=== PATIENT | male | born 1945 | race Caucasian/White ===

== ENCOUNTER 2016-10-27 10:26 | Observation (INO) | payer MEDICARE ==
[~2016-10-27] VITALS: Ht 172.7 cm; Wt 81.2 kg
[~2016-10-27 10:26] MED LIST: ADVAIR 500-501 EACH INH; ALLOPURINOL300 MG PO; AZELASTINE137 MCG/0. NAS; DIGOXIN250 MCG PO
[2016-10-27] MEDS ORDERED: ACYCLOVIR400 MG PO (11:32)
[2016-10-27] MEDS ORDERED: DICLO GEL 1%-X1 EACH TOP (11:33)
[2016-10-27] MEDS ORDERED: DILT-XR120 MG PO (11:35)
[2016-10-27] MEDS ORDERED: FOLIC ACID1 MG PO (11:36)
[2016-10-27] MEDS ORDERED: FUROSEMIDE40 MG PO (11:37)
[2016-10-27] MEDS ORDERED: LEVOTHYROXINE75 MCG PO (11:38)
[2016-10-27] MEDS ORDERED: LOSARTAN POTASS50 MG PO (11:39)
[2016-10-27] MEDS ORDERED: METHOTREXATE2.5 MG PO (11:39)
[2016-10-27] MEDS ORDERED: OMEPRAZOLE20 MG PO (11:40)
[2016-10-27] MEDS ORDERED: POTASSIUM CHLO10 ME1 PO (11:40)
[2016-10-27] MEDS ORDERED: HYDROCODON-ACE1 EA11 PO (11:40)
[2016-10-27] MEDS ORDERED: PROAIR HFA8.5 GM INH (11:41)
[2016-10-27] MEDS ORDERED: SPIRIVA RESPIMAT4 GM INH (11:42)
[2016-10-27] MEDS ORDERED: TAMSULOSIN HCL0.4 MG PO (11:46)
[2016-10-27] MEDS ORDERED: XARELTO20 MG PO (11:47)
[2016-10-27] MEDS ORDERED: SERTRALINE HCL100 MG PO (11:47)
[2016-10-27] MEDS ORDERED: SUDOGEST30 MG PO (11:48)
--- NOTE | 2016-10-27 17:13 | EKG ---
[facility] [address] [facility] [place] [address] Signed Atrial fibrillation Right bundle branch block Left anterior fascicular block Bifascicular block Inferior infarct (cited on or before 05-APR-2016) Abnormal ECG When compared with ECG of 05-APR-2016 15:13, No significant change was found Confirmed by REYES MCRAE MD ([id number]) on 10/27/2016 5:13:23 PM Electronically Signed By: REYES MCRAE MD 10/27/16 1713 PATIENT NAME: PAVITHRA ROBERTSON Electrocardiogram DATE OF : 43 PHYSICIAN: REYES MCRAE MD REPORT #: [id number] REPORT IS CONFIDENTIAL AND NOT TO BE RELEASED WITHOUT AUTHORIZATION
[2016-10-28] MEDS ORDERED: AZITHROMYCIN500 MG PO (09:19)
[2016-10-28] MEDS ORDERED: PREDNISONE5 MG PO (09:39)
== END 2016-10-28 12:10 | disposition home or self-care (01) ==
LOC: ED 10:26 → MS 10:28
PROVIDERS: ADMIT Internal Medicine
DX: R07.89 Other chest pain (principal); I25.10 Atherosclerotic heart disease of native coronary artery without angina pectoris; I48.91 Unspecified atrial fibrillation; R77.8 Other specified abnormalities of plasma proteins; M06.9 Rheumatoid arthritis, unspecified; J01.10 Acute frontal sinusitis, unspecified; J32.1 Chronic frontal sinusitis; M10.9 Gout, unspecified; E78.5 Hyperlipidemia, unspecified; E03.9 Hypothyroidism, unspecified; K21.9 Gastro-esophageal reflux disease without esophagitis; I11.0 Hypertensive heart disease with heart failure; I50.9 Heart failure, unspecified; Z88.8 Allergy status to other drugs, medicaments and biological substances; Z79.01 Long term (current) use of anticoagulants; Z95.1 Presence of aortocoronary bypass graft; Z79.51 Long term (current) use of inhaled steroids; Z79.52 Long term (current) use of systemic steroids; Z79.891 Long term (current) use of opiate analgesic; Z79.899 Other long term (current) drug therapy; Z87.891 Personal history of nicotine dependence; Z85.89 Personal history of malignant neoplasm of other organs and systems
CPT/HCPCS: 36415; 71020; 80048; 80053; 81001; 83605; 84484; 85025; 93005; 93010; 94640; 96360; 96365; 96374; 96375; 96376; 99285; G0378; J0456; J2920; J7040

== ENCOUNTER 2017-09-07 16:24 | Emergency (ER) | payer MEDICARE ==
[~2017-09-07 16:24] MED LIST changes: +ACYCLOVIR400 MG PO; +AZITHROMYCIN500 MG PO; +DICLO GEL 1%-X1 EACH TOP; +DILT-XR120 MG PO; +FOLIC ACID1 MG PO; +FUROSEMIDE40 MG PO; +HYDROCODON-ACE1 EA11 PO; +LEVOTHYROXINE75 MCG PO; +LOSARTAN POTASS50 MG PO; +METHOTREXATE2.5 MG PO; +OMEPRAZOLE20 MG PO; +POTASSIUM CHLO10 ME1 PO; +PREDNISONE5 MG PO; +PROAIR HFA8.5 GM INH; +SERTRALINE HCL100 MG PO; +SPIRIVA RESPIMAT4 GM INH; +SUDOGEST30 MG PO; +TAMSULOSIN HCL0.4 MG PO; +XARELTO20 MG PO
[2017-09-07] MEDS ORDERED: NORCO 5-325 TA1 EACH PO (17:36)
[2017-09-07] MEDS ORDERED: AUGMENTIN 875-1 EACH PO (17:36)
[2017-09-09] MEDS ORDERED: CLEOCIN HCL300 MG PO (10:52)
[2017-09-09] MEDS ORDERED: LEVAQUIN500 MG PO (10:52)
== END 2017-09-07 17:59 | disposition home or self-care (01) ==
LOC: ED 16:24
PROC: 0HQDXZZ Repair Right Lower Arm Skin, External Approach (ICD-10-PCS; principal; 2017-09-07)
DX: S51.851A Open bite of right forearm, initial encounter (principal); E03.9 Hypothyroidism, unspecified; J44.9 Chronic obstructive pulmonary disease, unspecified; F32.9 Major depressive disorder, single episode, unspecified; Z87.891 Personal history of nicotine dependence; Z88.8 Allergy status to other drugs, medicaments and biological substances; Z79.899 Other long term (current) drug therapy; W54.0XXA Bitten by dog, initial encounter
CPT/HCPCS: 12004; 99283

== ENCOUNTER 2017-09-16 13:57 | Emergency (ER) | payer MEDICARE ==
[~2017-09-16] VITALS: Ht 172.7 cm; Wt 81.2 kg
[~2017-09-16 13:57] MED LIST changes: +AUGMENTIN 875-1 EACH PO; +CLEOCIN HCL300 MG PO; +LEVAQUIN500 MG PO; +NORCO 5-325 TA1 EACH PO
== END 2017-09-16 15:50 | disposition home or self-care (01) ==
LOC: ED 13:57
DX: S51.851D Open bite of right forearm, subsequent encounter (principal); J44.9 Chronic obstructive pulmonary disease, unspecified; K21.9 Gastro-esophageal reflux disease without esophagitis; F32.9 Major depressive disorder, single episode, unspecified; N18.9 Chronic kidney disease, unspecified; Z87.01 Personal history of pneumonia (recurrent); Z87.891 Personal history of nicotine dependence; Z88.8 Allergy status to other drugs, medicaments and biological substances; Z79.899 Other long term (current) drug therapy; Z79.2 Long term (current) use of antibiotics; W54.0XXD Bitten by dog, subsequent encounter
CPT/HCPCS: 99281

== ENCOUNTER 2017-10-23 12:57 | Emergency (ER) | payer MEDICARE ==
[~2017-10-23] VITALS: Ht 170.2 cm; Wt 73.5 kg
[2017-10-23] MEDS ORDERED: FOSAMAX70 MG PO (15:47)
[2017-10-23] MEDS ORDERED: IMURAN50 MG PO (15:48)
[2017-10-23] MEDS ORDERED: AZELASTINE HCL6 ML OPTH (15:49)
[2017-10-23] MEDS ORDERED: POLYCIN EYE OI3.5 GM OPTH (15:50)
[2017-10-23] MEDS ORDERED: PEPTO-BISMOL262 MG PO (15:50)
[2017-10-23] MEDS ORDERED: CALCIUM MAGNES1 EAC2 PO (15:51)
[2017-10-23] MEDS ORDERED: VITAMIN D31000 UNIT PO (15:52)
[2017-10-23] MEDS ORDERED: B-121000 MC2 PO (15:54)
[2017-10-23] MEDS ORDERED: PEPCID40 MG PO (15:55)
[2017-10-23] MEDS ORDERED: HIGH POTENCY I134 MG PO (15:56)
[2017-10-23] MEDS ORDERED: FLONASE SENSIM5.9 ML (15:57)
[2017-10-23] MEDS ORDERED: GUAIFENESIN ER600 MG PO (15:59)
[2017-10-23] MEDS ORDERED: KRILL OIL500 MG PO (16:01)
[2017-10-23] MEDS ORDERED: NORCO 7.5-3251 EACH PO (16:01)
[2017-10-23] MEDS ORDERED: MUPIROCIN1 GM (16:25)
[2017-10-23] MEDS ORDERED: NYSTATIN15 GM TOP (16:26)
[2017-10-23] MEDS ORDERED: VOLTAREN100 GM TOP (16:29)
[2017-10-23] MEDS ORDERED: XARELTO20 MG PO (16:30)
--- NOTE | 2017-10-24 12:40 | EKG ---
[facility] [address] [facility] [place] [address] Signed Atrial fibrillation Right bundle branch block Left anterior fascicular block Bifascicular block Abnormal ECG When compared with ECG of 27-OCT-2016 10:34, No significant change was found Confirmed by BRISA ZENG MD ([id number]) on 10/24/2017 12:40:13 PM Electronically Signed By: BRISA ZENG MD 10/24/17 1240 PATIENT NAME: PAVITHRA ROBERTSON Electrocardiogram DATE OF : 43 PHYSICIAN: BRISA ZENG MD REPORT #: [id number] REPORT IS CONFIDENTIAL AND NOT TO BE RELEASED WITHOUT AUTHORIZATION
== END 2017-10-23 19:17 | disposition short-term general hospital (02) ==
LOC: ED 12:57 → MS 16:42 → ED 16:42
DX: J18.9 Pneumonia, unspecified organism (principal); J32.9 Chronic sinusitis, unspecified; R04.2 Hemoptysis; I24.9 Acute ischemic heart disease, unspecified; J44.9 Chronic obstructive pulmonary disease, unspecified; I48.91 Unspecified atrial fibrillation; K21.9 Gastro-esophageal reflux disease without esophagitis; I25.2 Old myocardial infarction; E03.9 Hypothyroidism, unspecified; F32.9 Major depressive disorder, single episode, unspecified; N18.9 Chronic kidney disease, unspecified; Z87.891 Personal history of nicotine dependence; Z79.899 Other long term (current) drug therapy; Z79.52 Long term (current) use of systemic steroids
CPT/HCPCS: 70450; 71046; 80053; 83605; 83880; 84484; 85025; 93005; 93010; 94640; 96365; 96375; 99285; J0456; J0696; J1170

== ENCOUNTER 2017-10-28 22:59 | Emergency (ER) | payer MEDICARE ==
[~2017-10-28] VITALS: Ht 172.7 cm; Wt 70.3 kg
--- OUTSIDE RECORDS SUMMARY | ~2017-10-28 | XMS | Encounter Summary ---
Demographics + + + | Address | [address] | | | [place] [address] | + + + | Home Phone | | + + + | Preferred Language | Unknown | + + + | Marital Status | | + + + | Anglican Affiliation | 1028 | + + + | Race | Unknown | + + + | Ethnic Group | Unknown | + + + Author + + + | Author | [facility] | + + + | Organization | [facility] | + + + | Address | Unknown | + + + | Phone | Unavailable | + + + Support + + + + + | Name | Relationship | Address | Phone | + + + + + | Blossom Rose | ECON | [address] | | | | | [place] | | | | | [address] | | + + + + + | Message,Detailed | ECON | Unknown | | + + + + + Care Team Providers + +------+ + | Care Adoption Specialist Name | Role | Phone | + +------+ + | Nelson Laird MD | PCP | | + +------+ + Encounter Details +--------+ + + + + | Date | Type | Department | Care Team | Description | +--------+ + + + + | 10/24/ | Procedure | [facility] | | | | 2018 | [facility] | [facility] 8th | | | | | | Floor [place] | | | | | | [address] | | | | | | [place] [address] | | | | | | [phone] | | | +--------+ + + + + Social History + +-------+ +--------+------+ | Tobacco Use | Types | Packs/Day | Years | Date | | | | | Used | | + +-------+ +--------+------+ | Former Smoker | | | | | + +-------+ +--------+------+ + +---+---+---+ | Smokeless Tobacco: | | | | | Never Used | | | | + +---+---+---+ + + +---------+ + | Alcohol Use | Drinks/We | oz/Week | Comments | | | ek | | | + + +---------+ + | No | | | | + + +---------+ + + + + | Sex Assigned at | Date Recorded | | | | + + + | Not on file | | + + + as of this encounter Plan of Treatment +--------+ + + + + | Date | Type | Specialty | Care Team | Description | +--------+ + + + + | 11/28/ | Office | Pulmonology | Elia, | | | 2018 | Visit | | Mary Pinto, | | | | | | MD [address] | | | | | | [place] [address] | | | | | | [phone] | | | | | | | | +--------+ + + + + | 12/04/ | Office | Cardiology | Cristian Mccoy, | | | 2017 | Visit | | MD [address] | | | | | | [address] [place], | | | | | | [place] [address] | | | | | | [phone] | | | | | | | | +--------+ + + + + | 01/08/ | Office | Cardiology | Cristian Mccoy, | | | 2017 | Visit | | MD [address] | | | | | | [address] [place], | | | | | | [place] [address] | | | | | | [phone] | | | | | | | | +--------+ + + + + | 01/30/ | Appointment | Radiology | | | | 2017 | | | | | +--------+ + + + + | 01/30/ | Appointment | Radiology | | | | 2017 | | | | | +--------+ + + + + | 01/30/ | Office | Vascular Surgery | Bridget Milian DNP | | | 2018 | Visit | | [address] | | | | | | [place] | | | | | | [address] | | | | | | | | +--------+ + + + + as of this encounter Visit Diagnoses Not on filein this encounter"
--- OUTSIDE RECORDS SUMMARY | ~2017-10-28 | XMS | Encounter Summary ---
Demographics + + + | Address | [address] | | | [place] [address] | + + + | Home Phone | | + + + | Preferred Language | Unknown | + + + | Marital Status | | + + + | Synagogue Affiliation | 1028 | + + + | Race | Unknown | + + + | Ethnic Group | Unknown | + + + Author + + + | Author | [facility] | + + + | Organization | [facility] | + + + | Address | Unknown | + + + | Phone | Unavailable | + + + Support + + + + + | Name | Relationship | Address | Phone | + + + + + | Blossom Rose | ECON | [address] | | | | | [place] | | | | | [address] | | + + + + + | Message,Detailed | ECON | Unknown | | + + + + + Care Team Providers + +------+ + | Care Director Money Name | Role | Phone | + +------+ + | Nelson Laird MD | PCP | | + +------+ + Reason for Visit MRI/CAT Scan (Routine) + +--------+ + + + + | Status | Reason | Specialty | Diagnoses / | Referred By | Referred To | | | | | Procedures | Contact | Contact | + +--------+ + + + + | Pending | | Radiology | Diagnoses | See, | | | Review | | | Pain | Medical | | | | | | Procedures | Record | | | | | | CTA abdomen | | | | | | | pelvis with | | | | | | | IV contrast | | | + +--------+ + + + + Encounter Details +--------+ + + + + | Date | Type | Department | Care Team | Description | +--------+ + + + + | 07/31/ | Hospital | [facility] | See, Medical | Pain | | 2018 | Encounter | [facility] | Record | | | | | RADIOLOGY [address] | | | | | | [address] | | | | | | [place] [address] | | | | | | [phone] | | | +--------+ + + + [...] + + + as of this encounter Medications at Time of Discharge + + +--------+---------+ + + | Medication | Sig. | Disp. | Refills | Start | End Date | | | | | | Date | | + + +--------+---------+ + + | acyclovir | Take 400 mg by mouth | | | | | | (ZOVIRAX) 400 MG | 5 (five) times | | | | | | tablet | daily. PRN | | | | | + + +--------+---------+ + + | Albuterol Sulfate | Inhale into the | | | | | | 108 (90 BASE) | lungs. | | | | | | MCG/ACT AEPB | | | | | | + + +--------+---------+ + + | | Apply to eye every | | | | | | bacitracin-polymyxin | 12 (twelve) hours. | | | | | | b (POLYSPORIN) | | | | | | | ophthalmic ointment | | | | | | + + +--------+---------+ + + | bismuth | Take 262 mg by mouth | | | | | | subsalicylate (PEPTO | 4 (four) times | | | | | | BISMOL) 262 MG | daily before meals | | | | | | chewable tablet | and nightly. | | | | | + + +--------+---------+ + + | | Take 1 tablet by | | | | | | ZNYQKRL-ILZSSSHGX-KP | mouth daily. | | | | | | NC PO | | | | | | + + +--------+---------+ + + | cholecalciferol | Take 1,000 Units by | | | | | | (VITAMIN D-3) 1000 | mouth daily. | | | | | | UNITS tablet | | | | | | + + +--------+---------+ + + | cyanocobalamin | Take 1,000 mcg by | | | | | | (VITAMIN B-12) 1000 | mouth daily. | | | | | | MCG tablet | | | | | | + + +--------+---------+ + + | diclofenac | Apply 2 g topically | | | | | | (VOLTAREN) 1 % | 4 (four) times | | | | | | | daily. PRN | | | | | + + +--------+---------+ + + | digoxin (LANOXIN) | Take 125 mcg by | | | | | | 0.25 MG tablet | mouth daily. | | | | | + + +--------+---------+ + + | ferrous sulfate, | Take 65 mg of iron | | | | | | 65 FE, 325 (65 FE) | by mouth daily with | | | | | | MG tablet | breakfast. | | | | | + + +--------+---------+ + + | fluticasone | one spray in each | | | 11/30/19 | | | (FLONASE) 50 MCG/ACT | nostril daily as | | | 12 | | | nasal | needed | | | | | + + +--------+---------+ + + | | Inhale 1 puff into | | | | | | fluticasone-salmeter | the lungs 2 (two) | | | | | | ol (ADVAIR) 500-50 | times daily. | | | | | | MCG/DOSE diskus | | | | | | | inhaler | | | | | | + + +--------+---------+ + + | folic acid | Take 1 mg by mouth | | | | | | (FOLVITE) 1 MG | daily. | | | | | | tablet | | | | | | + + +--------+---------+ + + | furosemide (LASIX) | Take 20 mg by mouth | | | | | | 40 MG tablet | daily. | | | | | + + +--------+---------+ + + | guaiFENesin | Take 600 mg by mouth | | | | | | (MUCINEX) 600 MG 12 | 2 (two) times | | | | | | hr tablet | daily. PRN | | | | | + + +--------+---------+ + + | | Take 1 tablet by | | | | | | HYDROcodone-acetamin | mouth every 6 (six) | | | | | | ophen (NORCO) | hours as needed for | | | | | | 7.5-325 MG per | Pain. | | | | | | tablet | | | | | | + + +--------+---------+ + + | Krill Oil 500 MG | Take 1 tablet by | | | | | | CAPS | mouth daily. | | | | | + + +--------+---------+ + + | levothyroxine | Take 75 mcg by mouth | | | | | | (SYNTHROID) 75 MCG | every morning | | | | | | tablet | before breakfast. | | | | | + + +--------+---------+ + + | loratadine | Take 10 mg by mouth | | | | | | (CLARITIN) 10 MG | daily. | | | | | | tablet | | | | | | + + +--------+---------+ + + | losartan (COZAAR) | Take 50 mg by mouth | | | | | | 50 MG tablet | daily. | | | | | + + +--------+---------+ + + | mupirocin | Apply topically 3 | 22 g | 2 | 07/11/ | | | (BACTROBAN) 2 % | (three) times daily. | | | 16 | | | ointment | | | | | | + + +--------+---------+ + + | ofloxacin | | | | 06/25/19 | | | (OCUFLOX) 0.3 % | | | | 18 | | | ophthalmic solution | | | | | | + + +--------+---------+ + + | | Take 1 tablet by | | | | | | oxyCODONE-acetaminop | mouth every 4 (four) | | | | | | hen (PERCOCET) 5-325 | hours as needed for | | | | | | MG per tablet | Pain. | | | | | + + +--------+---------+ + + | potassium chloride | Take 10 mEq by mouth | | | | | | (K-DUR) 10 MEQ | 2 (two) times daily | | | | | | tablet | with meals. | | | | | + + +--------+---------+ + + | rivaroxaban | Take 20 mg by mouth | | | | | | (XARELTO) 20 MG | daily with dinner. | | | | | | tablet | | | | | | + + +--------+---------+ + + | sertraline | Take 100 mg by mouth | | | | | | (ZOLOFT) 100 MG | daily. | | | | | | tablet | | | | | | + + +--------+---------+ + + | tamsulosin | Take 0.4 mg by mouth | | | | | | (FLOMAX) 0.4 MG | After dinner. | | | | | | capsule | | | | | | + + +--------+---------+ + + | trolamine | Apply topically as | | | | | | salicylate | needed. | | | | | | (ASPERCREME) 10 % | | | | | | | cream | | | | | | + + +--------+---------+ + + | allopurinol | | | | 05/10/19 | | | (ZYLOPRIM) 300 MG | | | | 18 | 8 | | tablet | | | | | | + + +--------+---------+ + + | clindamycin | Take 150 mg by mouth | | | | | | (CLEOCIN) 150 MG | as needed. | | | | 8 | | capsule | | | | | | + + +--------+---------+ + + | diltiazem | Take 60 mg by mouth | | | | | | (CARDIZEM) 120 MG | daily. | | | | 8 | | tablet | | | | | | + + +--------+---------+ + + | | Inhale 1 puff into | | | | | | fluticasone-salmeter | the lungs 2 (two) | | | | 8 | | ol (ADVAIR) 500-50 | times daily. | | | | | | MCG/DOSE diskus | | | | | | | inhaler | | | | | | + + +--------+---------+ + + | methotrexate | Take 7 tablets by | 28 | 0 | 01/12/20 | | | (TREXALL) 2.5 MG | mouth once a week. | tablet | | 15 | 8 | | tablet | | | | | | + + +--------+---------+ + + | metoclopramide | Take 10 mg by mouth | | | | | | (REGLAN) 10 MG | 4 (four) times daily | | | | 8 | | tablet | before meals and | | | | | | | nightly. | | | | | + + +--------+---------+ + + | nystatin | Apply topically 2 | | | | | | (MYCOSTATIN) cream | (two) times daily. | | | | 8 | + + +--------+---------+ + + | | Apply topically 2 | | | | | | nystatin-triamcinolo | (two) times daily. | | | | 8 | | ne (MYCOLOG) | | | | | | | ointment | | | | | | + + +--------+---------+ + + | omeprazole | Take 20 mg by mouth | | | | | | (PRILOSEC) 20 MG | every morning before | | | | 8 | | capsule | breakfast. | | | | | + + +--------+---------+ + + | potassium citrate | Take 10 mEq by | | | | | | (UROCIT-K) 10 MEQ | mouth. | | | | 8 | | (1080 MG) SR tablet | | | | | | + + +--------+---------+ + + | predniSONE | Take 10 mg by mouth | | | | | | (DELTASONE) 2.5 MG | daily. Takes 2 5mg | | | | 8 | | tabletIndications: | tablets every other | | | | | | Patient takes 10mg | day | | | | | | daily | | | | | | + + +--------+---------+ + + | pseudoephedrine | Take 30 mg by mouth | | | | | | (SUDAFED) 30 MG | daily. | | | | 8 | | tablet | | | | | | + + +--------+---------+ + + | rivaroxaban | Take 20 mg by mouth | | | | | | (XARELTO) 20 MG | daily with dinner. | | | | 8 | | tablet | | | | | | + + +--------+---------+ + + as of this encounter Plan of Treatment +--------+ + + + + | Date | Type | Specialty | Care Team | Description | +--------+ + + + + | 11/28/ | Office | Pulmonology | Elia, | | | 2017 | Visit | | Mary Millie, | | | | | | [address] | | | | | | [place] [address] | | | | | | [phone] | | | | | | | | +--------+ + + + + | 12/04/ | Office | Cardiology | Cristian Mccoy, | | | 2017 | Visit | | MD [address] | | | | | | [address] [place], | | | | | | [place] [address] | | | | | | [phone] | | | | | | | | +--------+ + + + + | 01/08/ | Office | Cardiology | Cristian Mccoy, | | | 2017 | Visit | | MD [address] | | | | | | [address] [place], | | | | | | [place] [address] | | | | | | [phone] | | | | | | | [...] [place] | | | | | | [phone] | | | | | | | | +--------+ + + + + as of this encounter Procedures + +--------+ + + + | Procedure Name | Priori | Date/Time | Associated Diagnosis | Comments | | | ty | | | | + +--------+ + + + | CTA ABDOMEN AND | Routin | 07/31/2017 | Pain | Results for this | | PELVIS W CONTRAST | e | 9:20 AM | | procedure are in the | | | | PDT | | results section. | + +--------+ + + + in this encounter Results CTA abdomen pelvis with IV contrast (07/31/2017 9:20 AM) + + + | Narrative | Performed At | + + + | This is a non-reportable procedure without a radiologist report and | [facility] | | is used for image storage only | [facility]Y | + + + + + + + + | Performing | Address | City/State/Zipcode | Phone Number | | Organization | | | | + + + + + | [facility] | [address] | [place] [address] | | + + + + + in this encounter Visit Diagnoses + + | Diagnosis | + + | Pain | + + | Generalized pain | + +"
--- OUTSIDE RECORDS SUMMARY | ~2017-10-28 | XMS | Encounter Summary ---
Demographics + + + | Address | [address] | | | [place] [address] | + + + | Home Phone | | + + + | Preferred Language | Unknown | + + + | Marital Status | | + + + | Synagogue Affiliation | 1028 | + + + | Race | Unknown | + + + | Ethnic Group | Unknown | + + + Author + + + | Author | [facility] | + + + | Organization | [facility] | + + + | Address | Unknown | + + + | Phone | Unavailable | + + + Support + + + + + | Name | Relationship | Address | Phone | + + + + + | Blossom Rose | ECON | [address] | | | | | [place] | | | | | [address] | | + + + + + | Message,Detailed | ECON | Unknown | | + + + + + Care Team Providers + +------+ + | Care Pharmacology Associate Name | Role | Phone | + +------+ + | Nelson Laird MD | PCP | | + +------+ + Reason for Referral Nuclear Medicine (Routine) + +--------+ + + + + | Status | Reason | Specialty | Diagnoses / | Referred By | Referred To | | | | | Procedures | Contact | Contact | + +--------+ + + + + | Pending | | | Diagnoses | See, | | | Review | | | Pain | Medical | | | | | | Procedures | Record | | | | | | NM | | | | | | | myocardial | | | | | | | perfus SPECT | | | | | | | (stress | | | | | | | only) | | | + +--------+ + + + + Encounter Details +--------+ + + + + | Date | Type | Department | Care Team | Description | +--------+ + + + + | 10/16/ | Ancillary | [facility] | See, Medical | Pain | | 2018 | [facility] | [facility] | Record | | | | | Nuclear Medicine | | | | | | [address] | | | | | | [place] [address] | | | | | | [phone] | | | +--------+ + + + [...] | 2017 | Visit | | Mary Pinto, | | | | | | MD [address] | | | | | | [place] [address] | | | | | | [phone] | | | | | | | | +--------+ + + + + | 12/04/ | Office | Cardiology | Cristian Mccoy, | | | 2017 | Visit | | MD [address] | | | | | | [address] [place], | | | | | | [place] [address] | | | | | | [phone] | | | | | | | | +--------+ + + + + | 01/08/ | Office | Cardiology | Paul Mccoyvirgilio, | | | 2017 | Visit | | MD [address] | | | | | | [address] [place], | | | | | | [place] [address] | | | | | | [phone] | | | | | | | [...] | 2017 | Visit | | [address] | | | | | | [place] | | | | | | [address] | | | | | | | | +--------+ + + + + as of this encounter Results NM myocardial perfus SPECT (stress only) (10/14/2017 1:12 AM) + + + | Narrative | Performed At | + + + | This is a non-reportable procedure without a radiologist report and | [facility] | | is used for image storage only | [facility] | + + + + + + + + | Performing | Address | City/State/Zipcode | Phone Number | | Organization | | | | + + + + + | [facility] | [address] | [place] [address] | | + + + + + in this encounter Visit Diagnoses + + | Diagnosis | + + | Pain | + + | Generalized pain | + +"
--- OUTSIDE RECORDS SUMMARY | ~2017-10-28 | XMS | Encounter Summary ---
Demographics + + + | Address | [address] | | | [place] [address] | + + + | Home Phone | | + + + | Preferred Language | Unknown | + + + | Marital Status | | + + + | Mandaeism Affiliation | 1028 | + + + | Race | Unknown | + + + | Ethnic Group | Unknown | + + + Author + + + | Author | [facility] [employer] [facility] | + + + | Organization | [facility] | + + + | Address | Unknown | + + + | Phone | Unavailable | + + + Support + + + + + | Name | Relationship | Address | Phone | + + + + + | Blossom Rose | ECON | [address] | | | | | [place] | | | | | [address] | | + + + + + | Message,Detailed | ECON | Unknown | | + + + + + Care Team Providers + +------+ + | Care Concrete Technician Name | Role | Phone | + +------+ + | Nelson Laird MD | PCP | | + +------+ + Encounter Details +--------+ + + + + | Date | Type | Department | Care Team | Description | +--------+ + + + + | 10/24/ | Procedure | [facility] | | | | 2018 | [facility] | [facility] 8th | | | | | | Floor [address] | | | | | | [address] | | | | | | [place] [address] | | | | | | [phone] | | | +--------+ + + + [...] | | | | | [place] [address] | | | | | | [phone] | | | | | | | | +--------+ + + + + | 12/04/ | Office | Cardiology | Cristian Mccoy, | | | 2017 | Visit | | MD [address] | | | | | | [address] [place], | | | | | | [place] [address] | | | | | | [phone] | | | | | | | | +--------+ + + + + | 01/08/ | Office | Cardiology | Cristian Mccoy, | | | 2017 | Visit | | MD [address] | | | | | | [address] [place], | | | | | | [place] [address] | | | | | | [phone] | | | | | | | [...]
--- OUTSIDE RECORDS SUMMARY | ~2017-10-28 | XMS | Encounter Summary ---
Demographics + + + | Address | [address] | | | [place] [address] | + + + | Home Phone | | + + + | Preferred Language | Unknown | + + + | Marital Status | | + + + | Advent Affiliation | 1028 | + + + | Race | Unknown | + + + | Ethnic Group | Unknown | + + + Author + + + | Author | [facility] | + + + | Organization | [facility] | + + + | Address | Unknown | + + + | Phone | Unavailable | + + + Support + + + + + | Name | Relationship | Address | Phone | + + + + + | Blossom Rose | ECON | [address] | | | | | [place] | | | | | [address] | | + + + + + | Message,Detailed | ECON | Unknown | | + + + + + Care Team Providers + +------+ + | Care Screwdown Operator Name | Role | Phone | [...] Record | | | | | | CT head | | | | | | | without | | | | | | | contrast | | | + +--------+ + + + + Encounter Details +--------+ + + + + | Date | Type | Department | Care Team | Description | +--------+ + + + + | 10/23/ | Hospital | [facility] | See, Medical | Pain | | 2018 | Encounter | [facility] | Record | | | | | RADIOLOGY [address] | | | | | | [address] | | | | | | [place] [address] | | | | | | [phone] | | | +--------+ + + + [...] + +---------+ + + | Medication | Sig. | [...] + + + +---------+ + + | Albuterol Sulfate | Inhale into the | | | | | | 108 (90 BASE) | lungs. | | | | | | MCG/ACT AEPB | | | | | | + + + +---------+ + + | alendronate | Take 70 mg by mouth | | | | | | (FOSAMAX) 70 MG | every 7 days. Take | | | | | | tablet | in the morning with | | | | | | | a full glass of | | | | | | | water, on an empty | | | | | | | stomach, and do not | | | | | | | take anything else | | | | | | | by mouth or lie down | | | | | | | for the next 30 | | | | | | | min. | | | | | + + + +---------+ + + | | Take 1 tablet by | 10 | 0 | 10/27/19 | | | amoxicillin-clavulan | mouth every 12 | tablet | | 18 | | | ate (AUGMENTIN) | (twelve) hours. | | | | | | 875-125 MG per | | | | | | | tabletIndications: | | | | | | | Aspiration Pneumonia | | | | | | + + + +---------+ + + | atorvastatin | Take 1 tablet by | 30 | 2 | 10/27/19 | | | (LIPITOR) 40 MG | mouth nightly. | tablet | | 18 | 9 | | tablet | | | | | | + + + +---------+ + + | azaTHIOprine | Take 50 mg by mouth | | | | | | (IMURAN) 50 MG | daily. | | | | | | tablet | | | | | | + + + +---------+ + + | | Apply to eye every | | | | | | bacitracin-polymyxin | 12 (twelve) hours. | | | | | | b (POLYSPORIN) | | | | | | | ophthalmic ointment | | | | | | + + + +---------+ + + | bismuth | Take 262 mg by mouth | | | | | | subsalicylate (PEPTO | 4 (four) times | | | | | | BISMOL) 262 MG | daily before meals | | | | | | chewable tablet | and nightly. | | | | | + + + +---------+ + + | | Inhale 2 puffs into | 1 | 0 | 10/27/19 | | | budesonide-formotero | the lungs 2 (two) | Inhaler | | 18 | 9 | | l (SYMBICORT) | times daily. | | | | | | 160-4.5 MCG/ACT | | | | | | | inhaler | | | | | | + + + +---------+ + + | | Take 1 tablet by | | | | | | BYFZAYL-FBFNEXWNJ-EA | mouth daily. | | | | | | NC PO | | | | | | + + + +---------+ + + | cholecalciferol | Take 1,000 Units by | | | | | | (VITAMIN D-3) 1000 | mouth daily. | | | | | | UNITS tablet | | | | | | + + + +---------+ + + | clopidogrel | Take 1 tablet by | 90 | 0 | 10/28/19 | | | (PLAVIX) 75 MG | mouth daily. | tablet | | 18 | 9 | | tablet | | | | | | + + + +---------+ + + | cyanocobalamin | Take 1,000 mcg by | | | | | | (VITAMIN B-12) 1000 | mouth daily. | | | | | | MCG tablet | | | | | | + + + +---------+ + + | diclofenac | Apply 2 [...] + + + +---------+ + + | famotidine | Take 40 mg by mouth | | | | | | (PEPCID) 40 MG | daily. | | | | | | tablet | | | | | | + + + +---------+ + + | ferrous sulfate, | Take [...] + +---------+ + + | folic acid | Take [...] +---------+ + + | guaiFENesin | Take 600 [...] + +---------+ + + | | Take 3 mLs by | 360 mL | 0 | 10/27/19 | | | ipratropium-albutero | nebulization every 6 | | | 18 | | | l (DUO-NEB) 0.5-2.5 | (six) hours as | | | | | | mg/3mL | needed. | | | | | + + + +---------+ + + | Krill Oil 500 MG [...] + + + +---------+ + + | mupirocin | 1 g by Nasal route | | | | | | (BACTROBAN) 2 % | as needed. Use pea | | | | | | nasal ointment | sized amount in each | [...] 1 min. | | | | | + + + +---------+ + + | mupirocin | Apply topically 3 | 22 g | 2 | // | | | (BACTROBAN) 2 % | [...] + + +---------+ + + | potassium chloride | Take 10 mEq by mouth | | | | | | (K-DUR) 10 MEQ | 2 (two) times daily | | | | | | tablet | with meals. | | | | | + + + +---------+ + + | predniSONE | Take 4 tablets by | 30 | | 10/27/19 | | | (DELTASONE) 2.5 MG | mouth daily. Takes | tablet | | 18 | | | tabletIndications: | 7.5 mg daily | | | | | | Patient takes 10mg | | | | | | | daily | | | | | | + + + +---------+ + + | rivaroxaban | Take 20 mg by mouth | | | | | | (XARELTO) 20 MG | daily with dinner. | | | | | | tablet | | | | | | + + + +---------+ + + | sertraline | Take 100 [...] + + + +---------+ + + | trolamine | Apply topically as | | | | | | salicylate | needed. | | | | | | (ASPERCREME) 10 % | | | | | | | cream | | | | | | + + + +---------+ + + | | Inhale 2 puffs into | 1 | 0 | 10/27/19 | | | budesonide-formotero | the lungs 2 (two) | Inhaler | | 18 | 8 | | l (SYMBICORT) | times daily. | | | | | | 160-4.5 MCG/ACT | | | | | | | inhaler | | | | | | + + + +---------+ + + | clopidogrel | Take 1 tablet by | 30 | 2 | 10/28/19 | | | (PLAVIX) 75 MG | mouth daily. | tablet | | 18 | 8 | | tablet | | | | | | + + + +---------+ + + | clopidogrel | Take 1 tablet by | 30 | 0 | 10/28/19 | | | (PLAVIX) 75 MG | mouth daily. | tablet | | 18 | 8 | | tablet | | | | | | + + + +---------+ + + | diltiazem | Take 60 mg by mouth | | | | | | (CARDIZEM) 120 MG | daily. | | | | 8 | | tablet | | | | | | + + + +---------+ + + | nystatin | Apply topically 2 | | | | | | (MYCOSTATIN) cream | (two) times daily. | | | | 8 | + + + +---------+ + + [...] + + + +---------+ + + | pseudoephedrine | Take 30 mg by mouth | | | | | | (SUDAFED) 30 MG | daily. | | | | 8 | | tablet | | | | | | + + + +---------+ + + as of this encounter Plan [...] Dr | | | | | | [place] [address] | | | | | | [phone] | | | | | | | | +--------+ + + + + | 12/04/ | Office | Cardiology | Cristian Mccoy, | | | 2017 | Visit | | MD Alayna Rajan | | | | | | Dr [address], | | | | | | [place] [address] | | | | | | [phone] | | | | | | | | +--------+ + + + + | 01/08/ | Office | Cardiology | Cristian Mccoy, | | | 2017 | Visit | | MD [address] | | | | | | [address], | | | | | | [place] [address] | | | | | | [phone] | | | | | | | [...] [place] | | | | | | [address] | | | | | | | | +--------+ + + + + as of this encounter Procedures + +--------+ + + + | Procedure Name | Priori | Date/Time | Associated Diagnosis | Comments | | | ty | | | | + +--------+ + + + | CT HEAD WO CONTRAST | Routin | 10/23/2017 | Pain | Results for this | | | e | 5:05 PM | | procedure are in the | | | | PDT | | results section. | + +--------+ + + + in this encounter Results CT head without contrast (10/23/2017 5:05 PM) + + + | Narrative | Performed At | + + + | This is a non-reportable procedure without a radiologist report and | [facility] | | is used for image storage only | RADIOLOGY | + + + + + + + + | Performing | Address | City/State/Zipcode | Phone Number | | Organization | | | | + + + + + | [facility] | [address] | [place] [address] | | + + + + + in this encounter Visit Diagnoses + + | Diagnosis | + + | Pain | + + | Generalized pain | + +"
--- OUTSIDE RECORDS SUMMARY | ~2017-10-28 | XMS | Encounter Summary ---
Demographics + + + | Address | [address] | | | [place] [address] | + + + | Home Phone | | + + + | Preferred Language | Unknown | + + + | Marital Status | | + + + | Buddhism Affiliation | 1028 | + + + | Race | Unknown | + + + | Ethnic Group | Unknown | + + + Author + + + | Author | [facility] | + + + | Organization | [facility] | + + + | Address | Unknown | + + + | Phone | Unavailable | + + + Support + + + + + | Name | Relationship | Address | Phone | + + + + + | Blossom Rose | ECON | [address] | | | | | [place] | | | | | [address] | | + + + + + | Message,Detailed | ECON | Unknown | | + + + + + Care Team Providers + +------+ + | Care Tumble Tailstock Turret Lathe Operator Name | Role | Phone | + +------+ + | Nelson Laird MD | PCP | | + +------+ + Reason for Referral MRI/CAT Scan (Routine) + +--------+ + + [...] + + + + | 10/23/ | Ancillary | [facility] | See, Medical | Pain | | 2018 | [facility] | [facility] CT | Record | | | | | [address] | | | | | | [place] [address] | | | | | | [phone] | | | +--------+ + + + [...] | | | | | [place] [address] | | | | | | [phone] | | | | | | | | +--------+ + + + + | 12/04/ | Office | Cardiology | Cristina Mccoy, | | | 2017 | Visit | | MD [address] Rajan | | | | | | [address], | | | | | | [place] [address] | | | | | | [phone] | | | | | | | | +--------+ + + + + | 01/08/ | Office | Cardiology | Cristian Mccoy, | | | 2017 | Visit | | MD [address] | | | | | | [address], | | | | | | [place] [address] | | | | | | [phone] | | | | | | | [...] [place] | | | | | | [address] | | | | | | | | +--------+ + + + + as of this encounter Results CT head without contrast (10/23/2017 5:05 PM) + + + | Narrative | Performed At | + + + | This is a non-reportable procedure without a radiologist report and | [facility] | | is used for image storage only | RADIOLOGY | + + + + + + + + | Performing | Address | City/State/Zipcode | Phone Number | | Organization | | | | + + + + + | [facility] | [address] | [facility] [place] [address] | | + + + + + in this encounter Visit Diagnoses + + | Diagnosis | + + | Pain | + + | Generalized pain | + +"
--- OUTSIDE RECORDS SUMMARY | ~2017-10-28 | XMS | Encounter Summary ---
Demographics + + + | Address | [address] | | | [place] [address] | + + + | Home Phone | | + + + | Preferred Language | Unknown | + + + | Marital Status | | + + + | Hindu Affiliation | 1028 | + + + | Race | Unknown | + + + | Ethnic Group | Unknown | + + + Author + + + | Author | [facility] | + + + | Organization | [facility] [employer] | + + + | Address | Unknown | + + + | Phone | Unavailable | + + + Support + + + + + | Name | Relationship | Address | Phone | + + + + + | Blossom Rose | ECON | [address] | | | | | [place] | | | | | [phone] | | + + + + + | Message,Detailed | ECON | Unknown | | + + + + + Care Team Providers + +------+ + | Care Tug Master Name | Role | Phone | + +------+ + | Nelson Laird MD | PCP | | + +------+ + Reason for Referral Speech Therapy (Urgent) + + + + + + + | Status | Reason | Specialty | Diagnoses / | Referred By | Referred To | | | | | Procedures | Contact | Contact | + + + + + + + | New Request | Specialty | Speech | Diagnoses | Audie, | | | | Services | Pathology | Dysphagia, | MD Junie | | | | Required | | unspecified | [address] | | | | | | type | [address] | | | | | | | [place] | | | | | | | [address] | | | | | | | Phone: | | | | | | | [phone] | | | | | | | Fax: | | | | | | | [phone] | | + + + + + + + Reason for Visit Auth/Cert +--------+--------+ + + + + | Status | Reason | Specialty | Diagnoses / | Referred By | Referred To | | | | | Procedures | Contact | Contact | +--------+--------+ + + + + | | | Internal | Diagnoses | | Kr [facility] | | | | Medicine | Precordial | | [facility] | | | | | pain ASCVD | | [facility] [address] | | | | (arterioscle | | [address] | | | | | rotic | | [place] | | | | | cardiovascul | | [phone] Phone: | | | | | ar disease) | | [phone] | | | | | Essential | | | | | | | hypertension | | | | | | | Chronic | | | | | | | atrial | | | | | | | fibrillation | | | | | | | (HCC) | | | | | | | Thoracic | | | | | | | aortic | | | | | | | aneurysm | | | | | | | without | | | | | | | rupture | | | | | | | (HCC) | | | | | | | Acute | | | | | | | ischemic | | | | | | | heart | | | | | | | disease | | | +--------+--------+ + + + + Encounter Details +--------+ + + + + | Date | Type | Department | Care Team | Description | +--------+ + + + + | 10/23/ | Hospital | [facility] | Tameka Duke | Dysphagia, | | 2018 - | Encounter | [facility] 8th | MD Leeroy [address] | unspecified type | | | | [facility] | [address] [place] | (Primary Dx); | | 10/26/ | | [address] | [address] | Thoracic aortic | | 2018 | | [place] [address] | | aneurysm without | | | | [phone] | Junie Delvalle MD | rupture ([facility]); ASCVD | | | | | [address] | (arteriosclerotic | | | | | [place] [address] | cardiovascular | | | | | [phone] | disease); Chronic | | | | | | atrial fibrillation | | | | | | ([facility]); Essential | | | | | | hypertension; | | | | | | Precordial pain | +--------+ + + + + Social [...] + + + as of this encounter Last Filed Vital Signs + + + + | Vital Sign | Reading | Time Taken | + + + + | Blood Pressure | 139/67 | 10/26/2017 10:57 AM PDT | + + + + | Pulse | 66 | 10/26/2017 10:57 AM PDT | + + + + | Temperature | 36.6 C (97.8 F) | 10/26/2017 10:57 AM PDT | + + + + | Respiratory Rate | 18 | 10/26/2017 10:57 AM PDT | + + + + | Oxygen Saturation | 98% | 10/26/2017 10:57 AM PDT | + + + + | Inhaled Oxygen | - | - | | Concentration | | | + + + + | Weight | 71.9 kg (158 lb 8 | 10/26/2017 4:48 AM PDT | | | oz) | | + + + + | Height | 172.7 cm (5' 8") | 10/23/2017 9:26 PM PDT | + + + + | Body Mass Index | 24.1 | 10/26/2017 4:48 AM PDT | + + + + in this encounter Discharge Summaries Junie Delvalle MD - 10/26/2017 10:43 AM PDTFormatting of this note may be different from lali jacobo. Patient ID: Pavithra Rose [id number] 72 y.o. 1945 Admit date: 10/23/2017 Discharge date and time: 10/26/17 Admitting Physician: Tameka Duke MD Discharge Physician: MD Amanuel Consults: Primary Discharge Diagnoses: Precordial pain [R07.2] ASCVD (arteriosclerotic cardiovascular disease) [I25.10] Essential hypertension [I10] Chronic atrial fibrillation (HCC) [I48.2] Thoracic aortic aneurysm without rupture (HCC) [I71.2] Hemoptysis Aspiration PNA Iron def anemia Discharged Condition: good Significant Diagnostic Studies: Lab Results Component Value Date WBC 5.20 10/26/2017 HGB 9.6 (L) 10/26/2017 HCT 28.4 (L) 10/26/2017 MCV 76.7 (L) 10/26/2017 PLT 132 (L) 10/26/2017 GLUCOSE Date Value Ref Range Status 10/26/2017 101 (H) 65 - 99 mg/dL Final BUN Date Value Ref Range Status 10/26/2017 12 8 - 25 mg/dL Final CREATININE Date Value Ref Range Status 10/26/2017 1.1 0.70 - 1.30 mg/dL Final BUN/CREAT Date Value Ref Range Status 10/26/2017 11 Final TOTAL PROTEIN Date Value Ref Range Status 10/26/2017 5.5 (L) 6.3 - 8.2 g/dL Final GLOBULIN Date Value Ref Range Status 10/26/2017 3.0 1.3 - 4.9 g/dL Final TBIL Date Value Ref Range Status 10/26/2017 0.7 0.1 - 1.5 mg/dL Final ALT Date Value Ref Range Status 10/26/2017 14 10 - 65 U/L Final AST Date Value Ref Range Status 10/26/2017 16 10 - 45 U/L Final SODIUM Date Value Ref Range Status 10/26/2017 143 135 - 145 mmol/L Final POTASSIUM Date Value Ref Range Status 10/26/2017 3.3 (L) 3.5 - 4.9 mmol/L Final CHLORIDE Date Value Ref Range Status 10/26/2017 108 99 - 109 mmol/L Final CO2 Date Value Ref Range Status 10/26/2017 26 23 - 32 mmol/L Final ANION GAP AGAP Date Value Ref Range Status 10/26/2017 12 5 - 20 mmol/L Final Xr Chest 2 View Result Date: 10/26/2017 PAVITHRA ROSE 1945 72 years Male XR CHEST 2 VIEW FRONTAL AND LATERAL 10/26/2017 9:52 AM INDICATION: Shortness of breath with chest pain COMPARISON: 10/24/2017 TECHNIQUE: Two view deshawn st, PA and lateral views FINDINGS: Median sternotomy wires are maintained. The cardiac silho uette is borderline enlarged. There is no mediastinal widening or shift. Mild calcification of the aortic arch is present. There is improving aeration of the left upper lobe. Some resi dual opacities remain along the lower lobes bilaterally. The pulmonary markings are normal i n caliber. There is mild degenerative disc disease of the thoracic spine. 1. There is improved aeration of the left upper lobe. 2. Hazy opacities throughout the jose eduardo ng may reflect some residual acute pneumonitis. Xr Chest 2 View Result Date: 10/24/2017 HISTORY: Precordial chest pain. Question pneumonia. COMPARISON: 10/23/17. TECHNIQUE: PA and lateral films of the chest. FINDINGS: Median sternotomy. Heart size is upper normal. Pulmon kenneth venous congestion. Bilateral perihilar mixed interstitial and airspace infiltrates again noted, essentially unchanged. No effusions. Subtle thickening of the major and minor fissur es. Mild degenerative changes of the spine. Osteopenia. 1. Borderline cardiac enlargement, with probable pulmonary edema. Atypical pneumonitis see ms less likely. X-ray Chest 2 View Frontal & Lateral Result Date: 10/23/2017 This is a non-reportable procedure without a radiologist report and is used for image [employer] [facility] only Ct Head Without Contrast Result Date: 10/23/2017 This is a non-reportable procedure without a radiologist report and is used for image [employer] [facility] only Ct Chest Without Contrast Result Date: 10/24/2017 HISTORY: 72 years year-old Male, hemoptysis. TECHNIQUE: CT through the chest. Noncontrast e xamination. Automatic dose adjustment to minimize patient exposure. PRIOR EXAMINATION: Lucamai er chest radiograph. 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 Lung windows demonstrate bila teral reticular and confluent infiltrates throughout mid lower lung pack. In the posterior medial left lung on image 81 series 3 in underlying mass would be difficult to exclude, but this is simply a larger multiple similar findings throughout both lungs. Inflammatory nodul es and/or inflammatory masses are very plausibly superimposed In the mid central superior le ft lung the lung disease is more cystic in appearance, asymmetric centrilobular emphysema/CO PD and superimposed edema edema Bone windows demonstrate degenerative and postprocedural yogesh nges, without acute appearing lesion or active fracture. The sternotomy is healed. Nonaggres sive and degenerative changes not uncommon for age. What is seen of the upper abdomen demons trates fatty liver. Splenomegaly. No adenopathy or fluid collection discernible. Large hiatu s hernia. Within the chest dense coronary calcification, interventional changes, diffuse car diac megaly and hilar vascular congestion symmetrically distributed in midlung pack. Crews es post CABG. 1. At the very least there is pulmonary vascular congestion, edema-and centrilobular emphys will is superimposed 2. Pulmonary infiltrates are asymmetric and throughout the left hemithor ax. This could be due to superimposed infection of the left upper lung and there is a small effusion also 3. Lastly, there are inflammatory appearing airspace or infiltrative nodules s uperimposed throughout Will be important to repeat this examination when the patient's acute issues are resolved to evaluate for underlying lesion/mass X-ray Swallowing Function Video Result Date: 10/24/2017 This is a non-reportable procedure without a radiologist report and is used for image [facility] only Cl Coronary Angio With Grafts Result Date: 10/25/2017 DA TE OF : 1945. PROCEDURE: 1. Right femoral access with ultrasound guidance. 2. Le ft heart catheterization. 3. Coronary angiogram. 4. SVG angiogram to the RCA. 5. SVG angiogr am to the left circumflex. 6. GRIER to LAD angiogram. INDICATION: This is a 72-year-old male who presented to the hospital because of shortness of breath, pulmonary edema, and elevatio n of cardiac enzymes. For further details, refer to my consultation note. Given the above findings, left heart catheterization was recommended. The patient had previous history of C ABG times 4 in 1995. PROCEDURE NOTE: The patient was brought electively to the heart cathet erization lab. Consent was obtained after reviewing risks and benefits. Timeout was done a t the bedside. The patient was prepped in the usual sterile manner, received IV fentanyl vi a independent observer. Right groin was anesthetized with 1 percent lidocaine. Using ultra sound and a micropuncture needle, right femoral access was obtained. A 5-Comoran sheath was introduced without any difficulty. A 0.035 wire was used and advanced under fluoroscopic gu idance into the ascending aorta. A 5-Comoran JL4 catheter was used and advanced over the wir e and placed selectively in the left coronary cusp. Wire was removed. Catheter was flushed . Selectively engaged the left coronary system. Contrast was injected. Multiple views wer e obtained. Exchange over the wire was done with JR4 catheter that was placed selectively i n the right coronary cusp, selectively engaged the right coronary artery, and multiple views were obtained. Attempted to engage the SVG to RCA and the obtuse marginal with the JR4 cat heter; however, was unsuccessful. Then JR4 catheter was used to cannulate the left subclavi an artery and then a long 0.035 wire was used to exchange with a GRIER catheter that selectiv tre engaged the GRIER graft and multiple views were obtained. Exchange over the wire was don e with a 5-Comoran multipurpose catheter that selectively engaged the right SVG to RCA graft. Multiple views were obtained. Exchange over the wire was done with 5-Comoran AL1 catheter t hat selectively engaged the SVG to left circumflex system graft. Multiple views were obtain ed. Finally, the catheter was removed over the wire. Hemostasis was achieved by TR band. C ONTRAST USED: 100 mL. BLOOD LOSS: Less than 10. COMPLICATIONS: None. HEMOSTASIS: By manu al pressure. ANGIOGRAPHIC FINDINGS: 1. Left main is large caliber vessel with normal origin. Bifurcates to LAD and left circumflex with mild diffuse disease. 2. LAD is 100 percent pro ximally occluded. 3. Left circumflex is a small to moderate vessel that is severely calcifie d, has multiple lesions and diffusely diseased. Distally it is very small and severely calc ified. Has 90 percent proximal and subtotal occlusion distal. However again smaller and se verely calcified. No competitive flow was seen. 4. RCA has 100 percent ostial occlusion. 5. SVG to RCA is widely patent with mildly diffuse disease. 6. SVG to left circumflex system i s diffusely diseased with severe degenerative disease; however, occluded at the insertion si te. The jump graft of the 2nd obtuse marginal is occluded. GRIER to LAD is widely patent. C ONCLUSION: 1. Severe 3-vessel coronary artery disease. 2. Patent SVG to RCA and GRIER to LAD. 3. Occluded SVG to the left circumflex system, which is a jump graft. 4. Severely calcified left circumflex, which is small caliber severely calcified. However, not amenable to any PC I. RECOMMENDATIONS: Given the above findings, the patient will continue medical therapy for coronary artery disease. Will be restarted on antiplatelet therapy and will be on optimiza tion of blood pressure control, statin therapy, and will be re-started on anticoagulation fo r atrial fibrillation. Further recommendations to follow. Read by CECILIA MCCOY MD 11/2017 07:56 P Echo Cardiac Adult Complete Result Date: 10/24/2017 Patient Name: PAVITHRA ROSE Date of : 1945 Performing Physici an: Cecilia Mccoy INDIC ATIONS sob,h/o 4 cabg CONCLUSIONS 1. The left ventricle cavity is no rmal in size, mild concentric hypertrophy and normal systolic function EF 55%. Mild inferio r and inferolateral hypokinetic segments. 2. Mild degenerative changes in the aortic and rose ral valves. 3. There is no pericardial effusion. FINDINGS -------- ECG rhythm: Atrial fibril lation. Study: A 2-dimensional transthoracic echocardiogram with m-mode, spectral and color flow Doppler was perfomed. Study: This was a technically adequate study. Left Ventricle: Ove rall left ventricular systolic function is low-normal with, an EF 55 %. Left Ventricle: The left ventricle cavity size is normal. Left Ventricle: There is mild concentric left ventricu lar hypertrophy. Right Ventricle: The RV was not well visualized. Left Atrium: The left atri um is mildly dilated. Right Atrium: The right atrial size is normal. Aortic Valve: The aorti c valve is trileaflet. Aortic Valve: The aortic valve is mildly calcified. Aortic Valve: The re is mild aortic regurgitation. Mitral Valve: There is trace mitral regurgitation. Mitral V alve: Mild mitral annular calcification present. Tricuspid Valve: The tricuspid valve appear s structurally normal. Tricuspid Valve: Trace tricuspid regurgitation present. Tricuspid Aleksandra ve: There is no evidence of pulmonary hypertension. Pulmonic Valve: The pulmonic valve is no rmal. Pulmonic Valve: Mild pulmonic regurgitation. Pulmonic Valve: Mild degenerative changes in the aortic and mitral valves. Pericardium: There is no pericardial effusion. Pericardium : No pleural effusion seen. IVC/Hepatic Veins: The inferior vena cava is normal in size and collapses > 50 % with sniff, indicating normal central venous pressures. MEASUREMENTS ------ ------- Ao asc: 4.19 cm Ao sinus: 3.[address] junct: 3.01 cm IVC: 1.42 cm LA Diam: 5.50 cm LA Major: 5.97 cm EDV(Teich): 106.74 ml IVSd: 1.19 cm LVIDd: 4.78 cm LVPW d: 1.21 cm LVOT Diam: 2.25 cm %FS: 26.84 % EF(Teich): 52.32 % ESV(Teich): 50.89 ml IVSs: 1.81 cm LVIDs: 3.50 cm LVPWs: 1.71 cm SV(Teich): 55.85 ml RA Major: 5.04 cm LVEF MOD A4C: 55.16 % SV MOD A4C: 49.58 ml LVEDV MOD A4C: 89.88 ml LVLd A4C: 7.50 c m LVESV MOD A4C: 40.30 ml LVLs A4C: 5.87 cm LAESV(A-L): 76.74 ml LAESV Index (A-L): 41.48 ml/m2 LAAs A2C: 17.05 cm2 LAESV A-L A2C: 48.56 ml LALs A2C: 5.08 cm LAAs A4C: 26.95 cm2 LAESV A-L A4C: 95.07 ml LALs A4C: 6.48 cm Ao Diam: 4.03 cm AV Cusp: 1.91 c m LA Diam: 4.92 cm LA/Ao: 1.22 D-E Excursion: 2.29 cm E-F Fergus: 0.09 m/s AV maxP.18 mmHg AV meanP.51 mmHg AV Vmax: 1.59 m/s AV Vmean: 1.23 m/s AV VTI: 28.06 cm FRANKY Vmax: 3.26 cm2 FRANKY (VTI): 3.35 cm2 AVAI Vmax: 0.00 cm2/m2 AVAI (VTI): 0.00 c m2/m2 LVOT maxP.86 mmHg LVOT meanP.16 mmHg LVSI Dopp: 50.95 ml/m2 LVSV Dopp: 94.27 ml LVOT Vmax: 1.31 m/s LVOT Vmean: 0.84 m/s LVOT VTI: 23.69 cm MV E Ed: 0.93 m/s E' Lat: 0.12 m/s E' Sept: 0.06 m/s PRend P.85 mmHg PRend Vmax: 1.48 m/s HR: 77.27 BPM PV maxP.37 mmHg PV meanP.56 mmHg PV Vmax: 0.91 m/s PV Vmean: 0. 56 m/s PV VTI: 12.48 cm RV S': 0.08 m/s TR maxP.05 mmHg TR Vmax: 3.04 m/s TV A Ed: 0.00 m/s TV Dec Fergus: 3.93 m/s2 TV Dec Time: 207.73 ms TV E Ed: 0.56 m/s TV E /A Ratio: 69.55 Pulp Grinder: ADAM Authenticated by: Cecilia Mccoy Report Date/Time: 13:7:33 1. The left ventricle cavity is normal in size, mild concentric hypertrophy and normal sys tolic function EF 55%. Mild inferior and inferolateral hypokinetic segments. 2. Mild degener ative changes in the aortic and mitral valves. 3. There is no pericardial effusion. Cl Guidance Vascular Access Us Result Date: 10/24/2017 This Point of Care (POC) ultrasound image has been reviewed and interpreted by the physicia n identified as the performing physician in the associated interpretation and report. HPI and Hospital Course: 72-year-old gentleman with past medical history of chronic atrial fibrillation on anticoagulation, history of vocal cord cancer status post treatment and dysp hagia on and off for last 9 years, history of coronary disease status post CABG in 1995, his tory of tobacco abuse disorder and COPD, history of peptic ulcer disease and GI bleed who we nt to [facility] with productive cough, shortness of breath and hemoptysis seconda ry to aspiration pneumonia and found to have positive troponin around 1 hence he was transf erred to [facility] for further workup and treatment. Hospital course by issues: #1 non-ST elevation AR: Status post cardiac cath which showed triple-vessel disease and rec ommend medical management only. Patient started on Plavix, atorvastatin, patient allergic t o beta barbara has not initiated and patient currently asymptomatic. 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 Patient referred to speech therapy as an outpatient #4 Hemoptysis likely secondary to underlying pneumonia and being on aspirin as well as on Xarelleto which was held on admission and Plavix restarted yesterday. Patient will be resta rted on Xarelleto as he is not spitting up any blood and he was advised to hold any blood th inner if he has recurrence of hemoptysis and seek medical attention #5.Iron deficiency anemia secondary to ongoing hemoptysis and patient was given IV iron now being discharged home on iron supplement hemoglobin stable around 9 #6 acute COPD exacerbation secondary to pneumonia resolved now I have spent more than 35 minutes on discharge BP 139/67 (BP Location: Left upper arm) | Pulse 66 | Temp 97.8 F (36.6 C) (Oral) | R kev 18 | Ht 1.727 m (5' 8") | Wt 71.9 kg (158 lb 8 oz) | SpO2 98% | BMI 24.10 kg/m Intake/Output Summary (Last 24 hours) at 10/26/17 1221 Last data filed at 10/26/17 0616 Gross per 24 hour Intake 1191.23 ml Output 825 ml Net 366.23 ml Discharge Exam: Constitutional: Alert and oriented to person, place, and time. Appears well-developed and w ell-nourished. Cardiovascular: Normal rate, regular rhythm, normal heart sounds and intact distal pulses. Exam reveals no gallop and no friction rub. No murmur heard. Pulmonary/Chest: Effort normal and breath sounds normal. No stridor. No respiratory distres s. no wheezes. no rales. exhibits no tenderness. Except bibasilar crackles Abdominal: Soft. Bowel sounds are normal. exhibits no distension and no mass. There is no t enderness. There is no rebound and no guarding. Musculoskeletal: Normal range of motion.exhibits no tenderness. exhibits no edema. Neurological: Alert and oriented to person, place, and time. Has normal reflexes. display s normal reflexes. No cranial nerve deficit. Exhibits normal muscle tone. Coordination norm al. Skin: Skin is warm and dry. No rash noted. No erythema. No pallor. Psychiatric: Has a normal mood and affect. Behavior is normal. Judgment normal. Disposition: Home or Self Care Patient Instructions: Medication List START taking these medications amoxicillin-clavulanate 875-125 MG per tablet QTY: 10 tablet Refills: 0 Commonly known as: AUGMENTIN Take 1 tablet by mouth every 12 (twelve) hours. atorvastatin 40 MG tablet QTY: 30 tablet Refills: 2 Commonly known as: LIPITOR Take 1 tablet by mouth nightly. budesonide-formoterol 160-4.5 MCG/ACT inhaler QTY: 1 Inhaler Refills: 0 Commonly known as: SYMBICORT Inhale 2 puffs into the lungs 2 (two) times daily. clopidogrel 75 MG tablet QTY: 90 tablet Refills: 0 Commonly known as: PLAVIX Take 1 tablet by mouth daily. ipratropium-albuterol 0.5-2.5 mg/3mL QTY: 360 mL Refills: 0 Commonly known as: DUO-NEB Take 3 mLs by nebulization every 6 (six) hours as needed. CHANGE how you take these medications mupirocin 2 % ointment QTY: 22 g Refills: 2 Commonly known as: BACTROBAN Apply topically 3 (three) times daily. What changed: when to take this reasons to take this predniSONE 2.5 MG tablet QTY: 30 tablet Refills: 0 Commonly known as: DELTASONE Take 4 tablets by mouth daily. Takes 7.5 mg daily What changed: additional instructions CONTINUE taking these medications acyclovir 400 MG tablet Refills: 0 Commonly known as: ZOVIRAX Albuterol Sulfate 108 (90 Base) MCG/ACT Aepb Refills: 0 alendronate 70 MG tablet Refills: 0 Commonly known as: FOSAMAX azaTHIOprine 50 MG tablet Refills: 0 Commonly known as: IMURAN azelastine 0.1 % nasal spray QTY: 30 mL Refills: 12 1 spray by Nasal route 2 (two) times daily. Use in each nostril as directed bacitracin-polymyxin b ophthalmic ointment Refills: 0 Commonly known as: POLYSPORIN bismuth subsalicylate 262 MG chewable tablet Refills: 0 Commonly known as: PEPTO BISMOL QEEGNCH-WROCEXMCJ-WGDT PO Refills: 0 cholecalciferol 1000 units tablet Refills: 0 Commonly known as: VITAMIN D-3 cyanocobalamin 1000 MCG tablet Refills: 0 Commonly known as: VITAMIN B-12 famotidine 40 MG tablet Refills: 0 Commonly known as: PEPCID ferrous sulfate (65 FE) 325 (65 FE) MG tablet Refills: 0 FLOMAX 0.4 MG capsule Refills: 0 Generic drug: tamsulosin fluticasone 50 MCG/ACT nasal Refills: 0 Commonly known as: FLONASE fluticasone-salmeterol 500-50 MCG/DOSE diskus inhaler Refills: 0 Commonly known as: ADVAIR folic acid 1 MG tablet Refills: 0 Commonly known as: FOLVITE furosemide 40 MG tablet Refills: 0 Commonly known as: LASIX guaiFENesin 600 MG 12 hr tablet Refills: 0 Commonly known as: MUCINEX HYDROcodone-acetaminophen 7.5-325 MG per tablet Refills: 0 Commonly known as: NORCO Krill Oil 500 MG Caps Refills: 0 LANOXIN 0.25 MG tablet Refills: 0 Generic drug: digoxin levothyroxine 75 MCG tablet Refills: 0 Commonly known as: SYNTHROID loratadine 10 MG tablet Refills: 0 Commonly known as: CLARITIN losartan 50 MG tablet Refills: 0 Commonly known as: COZAAR mupirocin 2 % nasal ointment Refills: 0 Commonly known as: BACTROBAN ofloxacin 0.3 % ophthalmic solution Refills: 0 Commonly known as: OCUFLOX oxyCODONE-acetaminophen 5-325 MG per tablet Refills: 0 Commonly known as: PERCOCET potassium chloride 10 MEQ tablet Refills: 0 Commonly known as: K-DUR sertraline 100 MG tablet Refills: 0 Commonly known as: ZOLOFT trolamine salicylate 10 % cream Refills: 0 Commonly known as: ASPERCREME VOLTAREN 1 % Refills: 0 Generic drug: diclofenac XARELTO 20 MG tablet Refills: 0 Generic drug: rivaroxaban You might also be taking other medications not listed above. If you have questions about an y of your other medications, talk to the person who prescribed them or your Primary Care Pro vider. STOP taking these medications diltiazem 120 MG tablet Commonly known as: CARDIZEM nystatin cream Commonly known as: MYCOSTATIN nystatin-triamcinolone ointment Commonly known as: MYCOLOG omeprazole 20 MG capsule Commonly known as: PRILOSEC pseudoephedrine 30 MG tablet Commonly known as: SUDAFED Where to Get Your Medications You can get these medications from any pharmacy Bring a paper prescription for each of these medications amoxicillin-clavulanate 875-125 MG per tablet atorvastatin 40 MG tablet budesonide-formoterol 160-4.5 MCG/ACT inhaler clopidogrel 75 MG tablet ipratropium-albuterol 0.5-2.5 mg/3mL Information about where to get these medications is not yet available Ask your nurse or doctor about these medications predniSONE 2.5 MG tablet Activity: activity as tolerated Diet: cardiac diet Wound Care: not applicable There are no outpatient Patient Instructions on file for this admission. Nelson Laird MD [address] [facility], [address] [place] [address] Nelson Laird MD [address] [facility], [address] [place] [address] In 1 week Cecilia Mccoy MD [address] [place] [address] In 1 week Signed: JUNIE DELVALLE 10/26/2017 12:21 PMin this encounter Discharge Instructions The following attachments cannot be sent through Care Everywhere.Amoxicillin; Clavulanic Ac id tablets (Syriac)Clopidogrel tablets (Syriac)in this encounter Medications at Time of Discharge [...] by | | | | | | [id number] | mouth daily. | | | | [...] 3 | 22 g | 2 | 07/12/19 | | | (BACTROBAN) 2 % | [...] +---------+ + + as of this encounter Progress Notes Cecilia Mccoy MD - 10/26/2017 9:37 AM PDTFormatting of this note may be different fro m the original. [facility] Service: Cardiology Progress Note Name of Gripper Attacher: Cecilia Mccoy MD I have seen the patient on 10/26/2017. No more hemoptysis. Had LHC showed severe disease in LCX and occluded SVG to OM. SUBJECTIVE Denies any chest pain Current Facility-Administered Medications: acetaminophen (TYLENOL) tablet 650 mg, 650 mg, Oral, Q6H PRN OR acetaminophen (TYL ENOL) suppository 650 mg, 650 mg, Rectal, Q6H PRN, Tameka Duke MD ampicillin-sulbactam (UNASYN) 3 g in sodium chloride (IV) 0.9 % 100 mL IVPB, 3 g, Intr avenous, Q6H, Junei Delvalle MD, 3 g at 10/26/17 0442 atorvastatin (LIPITOR) tablet 40 mg, 40 mg, Oral, Nightly, Tameka Duke MD, 40 m g at 10/25/17 2130 azithromycin (ZITHROMAX) 500 mg in sodium chloride (IV) 0.9 % 250 mL IVPB, 500 mg, Int ravenous, Q24H, Tameka Duke MD, 500 mg at 10/25/17 1248 budesonide (PULMICORT) nebulizer suspension 0.5 mg, 0.5 mg, Nebulization, BID, Junie Delvalle MD, 0.5 mg at 10/25/172014 clopidogrel (PLAVIX) tablet 75 mg, 75 mg, Oral, Daily, Cecilia Mccoy MD, 75 mg at 10/26/17919 digoxin (LANOXIN) tablet 0.125 mg, 0.125 mg, Oral, Daily, Tameka Duke MD, 0.125 mg at 10/26/17919 famotidine (PEPCID) tablet 40 mg, 40 mg, Oral, Daily, Tameka Duke MD, 40 mg at 10/26/17919 fentaNYL (SUBLIMAZE) injection, , , Once PRN, Cecilia Mccoy MD, 50 mcg at 10/24/171918 ferric gluconate (FERRLECIT) 250 mg in sodium chloride (IV) 0.9 % 100 mL IVPB, 250 mg, Intravenous, Q24H, Junie Delvalle MD furosemide (LASIX) tablet 20 mg, 20 mg, Oral, Daily, Tameka Duke MD, 20 mg at 0 10/26/17919 guaiFENesin (MUCINEX) 12 hr tablet 600 mg, 600 mg, Oral, TID, Cecilia Mccoy MD, 60 0 mg at 10/26/17919 ipratropium-albuterol (DUO-NEB) 0.5-2.5 mg/3mL nebulizer solution 3 mL, 3 mL, Nebuliza tion, Q6H, Tameka Duke MD, 3 mL at 10/26/17314 levothyroxine (SYNTHROID) tablet 75 mcg, 75 mcg, Oral, QAM AC, Tameka Duke MD, 75 mcg at 10/26/17919 lidocaine 1 % injection, , , Once PRN, Cecilia Mccoy MD, 10 mL at 10/24/171911 losartan (COZAAR) tablet 50 mg, 50 mg, Oral, Daily, Tameka Duke MD, 50 mg at 919 morphine (PF) injection 2 mg, 2 mg, Intravenous, Q4H PRN, Junie Delvalle MD, 2 mg at 0 10/24/172054 nitroGLYCERIN (NITRO-BID) 2 % ointment 0.5 inch, 0.5 inch, Topical, Q6H, Tameka reynolds MD, 0.5 inch at 10/24/17 0613 nitroGLYCERIN (NITROSTAT) SL tablet 0.4 mg, 0.4 mg, Sublingual, Q5 Min PRN, Tameka posada MD polyethylene glycol (GLYCOLAX) packet 17 g, 17 g, Oral, Daily PRN, Tameka Duke MD potassium chloride oral solution 40 mEq, 40 mEq, Oral, Daily with breakfast, Junie mayo MD rivaroxaban (XARELTO) tablet 20 mg, 20 mg, Oral, Daily with dinner, Junie Delvalle MD sertraline (ZOLOFT) tablet 100 mg, 100 mg, Oral, Daily, Tameka Duke MD, 100 mg at 10/26/17 0921 sodium bicarbonate buffer (NEUT) injection, , , Once PRN, Cecilia Mccoy MD, 5 mL a t 10/24/17 1912 saline lock IV, , , Continuous AND sodium chloride (PF) 0.9 % flush 10 mL, 10 mL, Intravenous, Q8H, Tameka Duke MD, 10 mL at 10/26/17 0442 tamsulosin (FLOMAX) capsule 0.4 mg, 0.4 mg, Oral, after dinner, Tameka Duke MD, 0.4 mg at 10/25/17 1701 zolpidem (AMBIEN) tablet 5 mg, 5 mg, Oral, Nightly PRN, Cecilia Mccoy MD OBJECTIVE Vital Signs: BP 128/61 | Pulse 64 | Temp 97.7 F (36.5 C) (Oral) | Resp 18 | Ht 1.727 m (5' 8") | Wt 71.9 kg (158 lb 8 oz) | SpO2 98% | BMI 24.10 kg/m Intake/Output Summary (Last 24 hours) at 10/26/17 0937 Last data filed at 10/26/17 0616 Gross per 24 hour Intake 1191.23 ml Output 1075 ml Net 116.23 ml Cardiovascular: iiregular irregular, S1 normal and S2 normal. No murmur heard. Pulses: Radial pulses are 2+ on the right side, and 2+ on the left side. Pulmonary/Chest: poor air exchange with mild rhonchi bilaterally. Abdominal: Soft. No tenderness. Musculoskeletal: No edema. Neurological: Alert. No cranial nerve deficit. Skin: Warm and dry. DATA Recent Labs Lab 10/26/17 0535 10/25/17 1000 10/24/17 0157 NA 143 139 138 K 3.3* 3.8 4.3 CO2 26 24 24 BUN 12 15 14 CREATININE 1.1 1.2 1.3 EGFR >60 59* 54* MG -- -- 1.8 Recent Labs Lab 10/26/17 0535 10/25/17 1000 10/24/17 0157 WBC 5.20 7.51 11.05* HGB 9.6* 9.4* 11.5* HCT 28.4* 27.9* 35.3* MCV 76.7* 77.0* 77.5* PLT 132* PLATELETS CLUMPED, APPEAR ADEQUATE 160 Recent Labs Lab 10/24/17 0551 10/24/17 0157 10/23/17 2212 TROPONINI 1.28* 1.72* 1.76* TSH -- 4.150 -- Lab Results Component Value Date CHOL 103 10/24/2017 TRIG 116 10/24/2017 LDL 56 10/24/2017 HDL 24 (L) 10/24/2017 GLUF 101 (H) 10/26/2017 TSH 4.150 10/24/2017 EK10/24/2017 Reviewed by myself showed atrial fibrillation with [...] site. Last US carotid: ASSESSMENT: Patient is 72 y.o.with the following medical problems: 1. Coronary artery disease, occluded SVG to LCX system, LCX is not amenable to PCI. 2. Non-ST elevation AR. 3. Dysphagia. 4. Hemoptysis minimal, improved. 5. Chronic atrial fibrillation. On rate control strategy and anticoagulation. CHADSVASc sco re of 4. 6. AAA. 7. Coronary artery disease S/[place] [address]. 8. RBBB. 9. Hypertension blood pressures controlled. 10. Chronic obstructive pulmonary disease. 11. History of upper GI bleed due to peptic ulcer was off any antiplatelet therapy. 12. History of vocal cord cancer. Recommendations: Please provide Prescription for Clopidogrel for 3 months. Stop aspirin for increased risk of bleed given the patient need to be restarted on Rivaroxa ban. Continue to monitor H and H and any sign of increased hemoptysis. Once Clopidogrel stopped will restart aspirin. Patient has been off Rivaroxaban for 4 days with no change in patient's hemoptysis. Continue with Losartan, statin. Patient should be restarted on Rivaroxaban. Not a candidate for BB. HR is controlled rate atrial fibrillation. Will follow up as an outpatient. Code Status: Full Code Cecilia Mccoy MD 10/26/2017 Junie Delvalle MD - 10/25/2017 3:16 PM PDTFormatting of this note may be differ ent from the original. Hospitalist Progress Note Pavithra Rose 72 y.o. [id number] male [facility] Day: LOS: 2 days Patient Summary: 72-year-old gentleman with a past medical history of chronic atrial fibrillation on anticoagulation, history of vocal cord cancer status post treatment, luciano ry artery disease status post CABG in 1995, history of tobacco abuse disorder and COPD, hi story of peptic ulcer disease and GI bleed, history of dysphagia on and off for the last 9 y ears, who recently had abnormal cardiac stress test study who went to [facility] with ongoing productive cough, shortness of breath and hemoptysis, where he was found to hav e positive troponin and chest x-ray showed pneumonia and patient was transferred to [facility] for further workup and treatment. The patient was not put on any anticoagulation se condary to ongoing hemoptysis and Dr. Mccoy from cardiology consulted who recommended to get a CT chest and speech evaluation for ongoing dysphagia before cardiac workup. The patie nt's pneumonia is likely secondary to aspiration, hence antibiotic changed to Unasyn. Patient CT scan of the chest without contrast showed pulmonary vascular congestion, edema a nd centrilobular emphysema, pulmonary infiltrates asymmetrical throughout the left hemithora x.echo showed ejection fraction of 55%.patient underwent cardiac cath today which showed sev ere three-vessel disease, patent SVG to RCA and GRIER to LAD, occluded SVG to the left circum flex system, severely calcified left circumflex not amenable to PCI and recommend medical ma nagement only. When I went to see the patient he was resting comfortably on the bedside complaining of shortness of breath as he refused nebulizer treatment in the morning otherw ise he denied any chest pain no nausea no vomiting no abdominal pain no constipation or dillan rrhea though still complaining of cough bringing up yellowish color phlegm mixed with scant amount of blood less than yesterday. Scheduled Medications ampicillin-sulbactam 3 g Intravenous Q6H atorvastatin 40 mg Oral Nightly azithromycin 500 mg Intravenous Q24H budesonide 0.5 mg Nebulization BID clopidogrel 75 mg Oral Daily digoxin 0.125 mg Oral Daily famotidine 40 mg Oral Daily furosemide 20 mg Oral Daily guaiFENesin 600 mg Oral TID ipratropium-albuterol 3 mL Nebulization Q6H levothyroxine 75 mcg Oral QAM AC losartan 50 mg Oral Daily nitroGLYCERIN 0.5 inch Topical Q6H [START ON 10/26/2017] rivaroxaban 20 mg Oral Daily with dinner sertraline 100 mg Oral Daily sodium chloride (PF) 10 mL Intravenous Q8H tamsulosin 0.4 mg Oral after dinner Continuous Infusions PRN Medications acetaminophen OR acetaminophen, atropine sulfate, fentaNYL, lidocaine, morphine, nitroG LYCERIN, polyethylene glycol, sodium bicarbonate buffer, sodium chloride (bolus), zolpidem Allergy: Allergies Allergen Reactions Beta Adrenergic Blockers Anaphylaxis Diltiazem Edema Gabapentin Other (See Comments) COURTROOM REPORTER Imipramine Other (See Comments) Urinary retention Metoprolol Swelling Propranolol Other (See Comments) raynaud's OBJECTIVE Vital Signs: BP 116/55 (BP Location: Left upper arm) | Pulse 67 | Temp 97.8 F (36.6 C) (Oral) | R kev 18 | Ht 1.727 m (5' 8") | Wt 71.8 kg (158 lb 4.8 oz) | SpO2 97% | BMI 24.07 kg/m Temp: [97.5 F (36.4 C)-99.6 F (37.6 C)] 97.8 F (36.6 C) (10/25 1109) BP: (116-179)/(55-90) 116/55 (10/25 1109) Heart Rate: [52-94] 67 (10/25 1457) Resp: [16-22] 18 (10/25 1457) SpO2: [94 %-99 %] 97 % (10/25 1457) I&O Detailed Table: Intake/Output Summary (Last 24 hours) at 10/25/17 1516 Last data filed at 10/25/17 1117 Gross per 24 hour Intake 990.5 ml Output 900 ml Net 90.5 ml Hemodynamics Last 24hrs: Examination: Constitutional: Alert and oriented to person, place, and time. Appears in NAD Cardiovascular: Normal rate, irregular irregular rhythm, normal heart sounds and intact dis antione pulses. Exam reveals no gallop and no friction rub. No murmur heard. Pulmonary/Chest: Effort normal and breath sounds normal. No stridor. No respiratory distres s. no wheezes. no rales. exhibits no tenderness. Except decreased BS at bases Abdominal: Soft. Bowel sounds are normal. exhibits no distension and no mass. There is no t enderness. There is no rebound and no guarding. Musculoskeletal: Normal range of motion.exhibits no tenderness. exhibits no edema. Neurological: Alert and oriented to person, place, and time. Has normal reflexes. display s normal reflexes. No cranial nerve deficit. Exhibits normal muscle tone. Skin: Skin is warm and dry. No rash noted. No erythema. No pallor. Psychiatric: Has a normal mood and affect. Behavior is normal. Judgment normal. Laboratory: Glucose: Results Procedure Component Value Units Date/Time Iron panel [[id number]] Collected: 10/25/171442 Specimen: Blood Updated: 10/25/171449 Vitamin B12 [[id number]] Collected: 10/25/171442 Specimen: Blood Updated: 08/10/18 1450 Ferritin [[id number]] Collected: 10/25/17 1443 Specimen: Blood Updated: 10/25/17 1450 Folate [[id number]] Collected: 10/25/17 1443 Specimen: Blood Updated: 10/25/17 1450 CBC W/Auto Diff (Reflex to Manual) [[id number]] (Abnormal) Collected: 10/25/17 1000 Specimen: Blood Updated: 10/25/17 1349 WBC 7.51 K/uL RBC 3.63 (L) M/uL HGB 9.4 (L) g/dL HCT 27.9 (L) % MCV 77.0 (L) fl MCH 26.1 (L) pg MCHC 33.8 g/dL RDW SD 58.2 (H) fl PLT PLATELETS CLUMPED, APPEAR ADEQUATE K/uL DIFF TYPE AUTOMATED NEUTROPHILS 82.55 % LYMPHOCYTES 8.04 % MONOCYTES 5.49 % EOSINOPHILS 3.36 % BASOPHILS 0.56 % NEUTROPHILS ABS 6.20 K/uL LYMPHOCYTES ABS 0.60 (L) K/uL MONOCYTES ABS 0.41 K/uL EOSINOPHILS ABS 0.25 K/uL BASOPHILS ABS 0.04 K/uL MORPHOLOGY 2+ Comprehensive metabolic panel [[id number]] (Abnormal) Collected: 10/25/17 1000 Specimen: Blood Updated: 10/25/17 1332 SODIUM 139 mmol/L POTASSIUM 3.8 mmol/L CHLORIDE 105 mmol/L CO2 24 mmol/L ANION GAP AGAP 14 mmol/L GLUCOSE 137 (H) mg/dL BUN 15 mg/dL CREATININE 1.2 mg/dL BUN/CREAT 13 CALCIUM 8.4 (L) mg/dL TOTAL PROTEIN 5.5 (L) g/dL Albumin 2.4 (L) g/dL GLOBULIN 3.1 g/dL A/G 0.8 (L) TBIL 0.8 mg/dL ALK PHOS 87 U/L AST 20 U/L ALT 16 U/L EGFR 59 (L) mL/min/1.73m2 Sputum culture [[id number]] Collected: 10/24/17 0400 Specimen: Sputum from Sputum Updated: 10/24/17 1603 Specimen Description SPUTUM GRAM STAIN GREATER THAN 10 WBCS/LPF GRAM STAIN GREATER THAN 10 SEC/LPF GRAM STAIN 4+ GRAM STAIN GRAM POSITIVE COCCI GRAM STAIN 1+ GRAM STAIN GRAM NEGATIVE RODS GRAM STAIN 3+ GRAM STAIN GRAM POSITIVE RODS GRAM STAIN 2+ GRAM STAIN YEAST CULTURE SMEAR CONTAINS GREATER THAN 10 SEC/LPF SUGGESTIVE OF POOR QUALITY SPECIMEN. SPEC IMEN WILL NOT BE CULTURED OR WILL BE CULTURED BY SPECIAL REQUEST ONLY. PLEASE RECOLLECT IF CLINICALLY INDICATED. SPECIMEN WILL BE HELD 48 HOURS. Troponin I [[id number]] (Abnormal) Collected: 10/24/17550 Specimen: Blood Updated: 10/24/17657 TROPONIN I 1.28 (HH) ng/mL CBC W/Auto Diff (Reflex to Manual) [[id number]] (Abnormal) Collected: 10/24/17156 Specimen: Blood Updated: 10/24/17436 WBC 11.05 (H) K/uL RBC 4.56 M/uL HGB 11.5 (L) g/dL HCT 35.3 (L) % MCV 77.5 (L) fl MCH 25.1 (L) pg MCHC 32.4 g/dL RDW SD 57.3 (H) fl PLT 160 K/uL MPV 10.1 fl DIFF TYPE MANUAL Neutrophils Manual 85 % Lymphocytes Manual 8 % Monocytes Manual 6 % Eosinophils Manual 1 % Neutrophils Absolute 9.40 (H) K/uL Lymphocytes Absolute 0.88 (L) K/uL Monocytes Absolute 0.66 K/uL Eosinophils Absolute 0.11 K/uL Platelet Estimate ADEQUATE MORPHOLOGY 2+ Magnesium [[id number]] Collected: 10/24/17156 Specimen: Blood Updated: 10/24/17433 MAGNESIUM 1.8 mg/dL Phosphorus [[id number]] Collected: 10/24/17156 Specimen: Blood Updated: 10/24/17433 PHOSPHORUS 3.4 mg/dL TSH [[id number]] Collected: 10/24/17156 Specimen: Blood Updated: 10/24/17433 TSH 4.150 uIU/mL Basic metabolic panel [[id number]] (Abnormal) Collected: 10/24/17156 Specimen: Blood Updated: 10/24/17433 SODIUM 138 mmol/L POTASSIUM 4.3 mmol/L CHLORIDE 104 mmol/L CO2 24 mmol/L ANION GAP AGAP 14 mmol/L GLUCOSE 75 mg/dL BUN 14 mg/dL CREATININE 1.3 mg/dL BUN/CREAT 11 CALCIUM 8.6 mg/dL EGFR 54 (L) mL/min/1.73m2 Lipid panel [[id number]] (Abnormal) Collected: 10/24/17156 Specimen: Blood Updated: 10/24/17 0434 CHOLESTEROL 103 mg/dL Triglycerides 116 mg/dL HDL CHOL 24 (L) mg/dL LDL CALC 56 mg/dL Troponin I [[id number]] (Abnormal) Collected: 10/24/17156 Specimen: Blood Updated: 10/24/17 0251 TROPONIN I 1.72 (HH) ng/mL Protime-INR [[id number]] Collected: 10/24/17156 Specimen: Blood Updated: 10/24/17 022 INR 1.2 Septic Lactic Acid [[id number]] Collected: 10/23/172349 Updated: 10/24/17 0023 LACTIC ACID 1.1 mmol/L Troponin I [[id number]] (Abnormal) Collected: 10/23/172211 Specimen: Blood Updated: 10/23/172253 TROPONIN I 1.76 (HH) ng/mL CBC: Lab Results Component Value Date WBC 7.51 10/25/2017 RBC 3.63 (L) 10/25/2017 HGB 9.4 (L) 10/25/2017 HCT 27.9 (L) 10/25/2017 MCV 77.0 (L) 10/25/2017 MCH 26.1 (L) 10/25/2017 MCHC 33.8 10/25/2017 RDW 58.2 (H) 10/25/2017 PLT PLATELETS CLUMPED, APPEAR ADEQUATE 10/25/2017 MPV 10.1 10/24/2017 DIFFTYPE AUTOMATED 10/25/2017 CMP: Lab Results Component Value Date NA 139 10/25/2017 K 3.8 10/25/2017 CL 105 10/25/2017 CO2 24 10/25/2017 ANIONGAP 14 10/25/2017 GLUF 137 (H) 10/25/2017 BUN 15 10/25/2017 CREATININE 1.2 10/25/2017 BCR 13 10/25/2017 CA 8.4 (L) 10/25/2017 PROT 5.5 (L) 10/25/2017 ALB 2.4 (L) 10/25/2017 GLOB 3.1 10/25/2017 BILITOT 0.8 10/25/2017 ALP 87 10/25/2017 AST 20 10/25/2017 ALT 16 10/25/2017 EGFR 59 (L) 10/25/2017 Magnesium: Lab Results Component Value Date MG 1.8 10/24/2017 Phosphorus: Lab Results Component Value Date PHOS 3.4 10/24/2017 PT/INR: Lab Results Component Value Date INR 1.2 10/24/2017 Last 3 Troponin: Lab Results Component Value Date TROPONINI 1.28 () 10/24/2017 TROPONINI 1.72 () 10/24/2017 TROPONINI 1.76 () 10/23/2017 ABG: No results found for: POCPH, POCPCO, POCPO2, POCHCO, POCTCO2, POCBD, BEART, POCSO2, P OCCMT Xr Chest 2 View Result Date: 10/24/2017 HISTORY: Precordial chest pain. Question pneumonia. COMPARISON: 10/23/17. TECHNIQUE: PA and lateral films of the chest. FINDINGS: Median sternotomy. Heart size is upper normal. Pulmon kenneth venous congestion. Bilateral perihilar mixed interstitial and airspace infiltrates again noted, essentially unchanged. No effusions. Subtle thickening of the major and minor fissur es. Mild degenerative changes of the spine. Osteopenia. 1. Borderline cardiac enlargement, with probable pulmonary edema. Atypical pneumonitis see ms less likely. X-ray Chest 2 View Frontal & Lateral Result Date: 10/23/2017 This is a non-reportable procedure without a radiologist report and is used for image [employer] only Ct Head Without Contrast Result Date: 10/23/2017 This is a non-reportable procedure without a radiologist report and is used for image [employer] [facility] only Ct Chest Without Contrast Result Date: 10/24/2017 HISTORY: 72 years year-old Male, hemoptysis. TECHNIQUE: CT through the chest. Noncontrast e xamination. Automatic dose adjustment to minimize patient exposure. PRIOR EXAMINATION: Earli er chest radiograph. 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 Lung windows demonstrate bila teral reticular and confluent infiltrates throughout mid lower lung pack. In the posterior medial left lung on image 81 series 3 in underlying mass would be difficult to exclude, but this is simply a larger multiple similar findings throughout both lungs. Inflammatory nodul es and/or inflammatory masses are very plausibly superimposed In the mid central superior le ft lung the lung disease is more cystic in appearance, asymmetric centrilobular emphysema/CO PD and superimposed edema edema Bone windows demonstrate degenerative and postprocedural yogesh nges, without acute appearing lesion or active fracture. The sternotomy is healed. Nonaggres sive and degenerative changes not uncommon for age. What is seen of the upper abdomen demons trates fatty liver. Splenomegaly. No adenopathy or fluid collection discernible. Large hiatu s hernia. Within the chest dense coronary calcification, interventional changes, diffuse car diac megaly and hilar vascular congestion symmetrically distributed in midlung pack. Crews es post CABG. 1. At the very least there is pulmonary vascular congestion, edema-and centrilobular emphys will is superimposed 2. Pulmonary infiltrates are asymmetric and throughout the left hemithor ax. This could be due to superimposed infection of the left upper lung and there is a small effusion also 3. Lastly, there are inflammatory appearing airspace or infiltrative nodules s uperimposed throughout Will be important to repeat this examination when the patient's acute issues are resolved to evaluate for underlying lesion/mass X-ray Swallowing Function Video Result Date: 10/24/2017 This is a non-reportable procedure without a radiologist report and is used for image [facility] only Cl Coronary Angio With Grafts Result Date: 10/25/2017 DA TE OF : 1945. PROCEDURE: 1. Right femoral access with ultrasound guidance. 2. Le ft heart catheterization. 3. Coronary angiogram. 4. SVG angiogram to the RCA. 5. SVG angiogr am to the left circumflex. 6. GRIER to LAD angiogram. INDICATION: This is a 72-year-old male who presented to the hospital because of shortness of breath, pulmonary edema, and elevatio n of cardiac enzymes. For further details, refer to my consultation note. Given the above findings, left heart catheterization was recommended. The patient had previous history of C ABG times 4 in 1995. PROCEDURE NOTE: The patient was brought electively to the heart cathet erization lab. Consent was obtained after reviewing risks and benefits. Timeout was done a t the bedside. The patient was prepped in the usual sterile manner, received IV fentanyl vi a independent observer. Right groin was anesthetized with 1 percent lidocaine. Using ultra sound and a micropuncture needle, right femoral access was obtained. A 5-Comoran sheath was introduced without any difficulty. A 0.035 wire was used and advanced under fluoroscopic gu idance into the ascending aorta. A 5-Comoran JL4 catheter was used and advanced over the wir e and placed selectively in the left coronary cusp. Wire was removed. Catheter was flushed . Selectively engaged the left coronary system. Contrast was injected. Multiple views wer e obtained. Exchange over the wire was done with JR4 catheter that was placed selectively i n the right coronary cusp, selectively engaged the right coronary artery, and multiple views were obtained. Attempted to engage the SVG to RCA and the obtuse marginal with the JR4 cat heter; however, was unsuccessful. Then JR4 catheter was used to cannulate the left subclavi an artery and then a long 0.035 wire was used to exchange with a GRIER catheter that selectiv tre engaged the GRIER graft and multiple views were obtained. Exchange over the wire was don e with a 5-Comoran multipurpose catheter that selectively engaged the right SVG to RCA graft. Multiple views were obtained. Exchange over the wire was done with 5-Comoran AL1 catheter t hat selectively engaged the SVG to left circumflex system graft. Multiple views were obtain ed. Finally, the catheter was removed over the wire. Hemostasis was achieved by TR band. C ONTRAST USED: 100 mL. BLOOD LOSS: Less than 10. COMPLICATIONS: None. HEMOSTASIS: By manu al pressure. ANGIOGRAPHIC FINDINGS: 1. Left main is large caliber vessel with normal origin. Bifurcates to LAD and left circumflex with mild diffuse disease. 2. LAD is 100 percent pro ximally occluded. 3. Left circumflex is a small to moderate vessel that is severely calcifie d, has multiple lesions and diffusely diseased. Distally it is very small and severely calc ified. Has 90 percent proximal and subtotal occlusion distal. However again smaller and se verely calcified. No competitive flow was seen. 4. RCA has 100 percent ostial occlusion. 5. SVG to RCA is widely patent with mildly diffuse disease. 6. SVG to left circumflex system i s diffusely diseased with severe degenerative disease; however, occluded at the insertion si te. The jump graft of the 2nd obtuse marginal is occluded. GRIER to LAD is widely patent. C ONCLUSION: 1. Severe 3-vessel coronary artery disease. 2. Patent SVG to RCA and GRIER to LAD. 3. Occluded SVG to the left circumflex system, which is a jump graft. 4. Severely calcified left circumflex, which is small caliber severely calcified. However, not amenable to any PC I. RECOMMENDATIONS: Given the above findings, the patient will continue medical therapy for coronary artery disease. Will be restarted on antiplatelet therapy and will be on optimiza tion of blood pressure control, statin therapy, and will be re-started on anticoagulation fo r atrial fibrillation. Further recommendations to follow. Read by CECILIA MCCOY MD 11/2017 07:56 P Echo Cardiac Adult Complete Result Date: 10/24/2017 Patient Name: PAVITHRA ROSE Date of : 1945 Performing Physici an: Cecilia Mccoy INDIC ATIONS sob,h/o 4 cabg CONCLUSIONS 1. The left ventricle cavity is no rmal in size, mild concentric hypertrophy and normal systolic function EF 55%. Mild inferio r and inferolateral hypokinetic segments. 2. Mild degenerative changes in the aortic and rose ral valves. 3. There is no pericardial effusion. FINDINGS -------- ECG rhythm: Atrial fibril lation. Study: A 2-dimensional transthoracic echocardiogram with m-mode, spectral and color flow Doppler was perfomed. Study: This was a technically adequate study. Left Ventricle: Ove rall left ventricular systolic function is low-normal with, an EF 55 %. Left Ventricle: The left ventricle cavity size is normal. Left Ventricle: There is mild concentric left ventricu lar hypertrophy. Right Ventricle: The RV was not well visualized. Left Atrium: The left atri um is mildly dilated. Right Atrium: The right atrial size is normal. Aortic Valve: The aorti c valve is trileaflet. Aortic Valve: The aortic valve is mildly calcified. Aortic Valve: The re is mild aortic regurgitation. Mitral Valve: There is trace mitral regurgitation. Mitral V alve: Mild mitral annular calcification present. Tricuspid Valve: The tricuspid valve appear s structurally normal. Tricuspid Valve: Trace tricuspid regurgitation present. Tricuspid Aleksandra ve: There is no evidence of pulmonary hypertension. Pulmonic Valve: The pulmonic valve is no rmal. Pulmonic Valve: Mild pulmonic regurgitation. Pulmonic Valve: Mild degenerative changes in the aortic and mitral valves. Pericardium: There is no pericardial effusion. Pericardium : No pleural effusion seen. IVC/Hepatic Veins: The inferior vena cava is normal in size and collapses > 50 % with sniff, indicating normal central venous pressures. MEASUREMENTS ------ ------- Ao asc: 4.19 cm Ao sinus: 3.[address] junct: 3.01 cm IVC: 1.42 cm LA Diam: 5.50 cm LA Major: 5.97 cm EDV(Teich): 106.74 ml IVSd: 1.19 cm LVIDd: 4.78 cm LVPW d: 1.21 cm LVOT Diam: 2.25 cm %FS: 26.84 % EF(Teich): 52.32 % ESV(Teich): 50.89 ml IVSs: 1.81 cm LVIDs: 3.50 cm LVPWs: 1.71 cm SV(Teich): 55.85 ml RA Major: 5.04 cm LVEF MOD A4C: 55.16 % SV MOD A4C: 49.58 ml LVEDV MOD A4C: 89.88 ml LVLd A4C: 7.50 c m LVESV MOD A4C: 40.30 ml LVLs A4C: 5.87 cm LAESV(A-L): 76.74 ml LAESV Index (A-L): 41.48 ml/m2 LAAs A2C: 17.05 cm2 LAESV A-L A2C: 48.56 ml LALs A2C: 5.08 cm LAAs A4C: 26.95 cm2 LAESV A-L A4C: 95.07 ml LALs A4C: 6.48 cm Ao Diam: 4.03 cm AV Cusp: 1.91 c m LA Diam: 4.92 cm LA/Ao: 1.22 D-E Excursion: 2.29 cm E-F Fergus: 0.09 m/s AV maxP.18 mmHg AV meanP.51 mmHg AV Vmax: 1.59 m/s AV Vmean: 1.23 m/s AV VTI: 28.06 cm FRANKY Vmax: 3.26 cm2 FRANKY (VTI): 3.35 cm2 AVAI Vmax: 0.00 cm2/m2 AVAI (VTI): 0.00 c m2/m2 LVOT maxP.86 mmHg LVOT meanP.16 mmHg LVSI Dopp: 50.95 ml/m2 LVSV Dopp: 94.27 ml LVOT Vmax: 1.31 m/s LVOT Vmean: 0.84 m/s LVOT VTI: 23.69 cm MV E Ed: 0.93 m/s E' Lat: 0.12 m/s E' Sept: 0.06 m/s PRend P.85 mmHg PRend Vmax: 1.48 m/s HR: 77.27 BPM PV maxP.37 mmHg PV meanP.56 mmHg PV Vmax: 0.91 m/s PV Vmean: 0. 56 m/s PV VTI: 12.48 cm RV S': 0.08 m/s TR maxP.05 mmHg TR Vmax: 3.04 m/s TV A Ed: 0.00 m/s TV Dec Fergus: 3.93 m/s2 TV Dec Time: 207.73 ms TV E Ed: 0.56 m/s TV E /A Ratio: 69.55 Pulp Grinder: ADAM Authenticated by: Cecilia Youngputney Report Date/Time: 018 13:7:33 1. The left ventricle cavity is normal in size, mild concentric hypertrophy and normal sys tolic function EF 55%. Mild inferior and inferolateral hypokinetic segments. 2. Mild degener ative changes in the aortic and mitral valves. 3. There is no pericardial effusion. Cl Guidance Vascular Access Us Result Date: 10/24/2017 This Point of Care (POC) ultrasound image has been reviewed and interpreted by the physicia jacqueline meyers as the performing physician in the associated interpretation and report. PROBLEM LIST Principal Problem: NSTEMI (non-ST elevated myocardial infarction) (HCC) Active Problems: Aortic aneurysm (HCC) ASCVD (arteriosclerotic cardiovascular disease) Chronic atrial fibrillation (HCC) Essential hypertension Precordial pain Hemoptysis Multifocal pneumonia Chronic bronchitis (HCC) Chronic maxillary sinusitis Obstructive sleep apnea Peptic ulcer disease Moderate protein-calorie malnutrition (HCC) Severe protein-calorie malnutrition (HCC) Dysphagia Aspiration pneumonia (HCC) ASSESSMENT & PLAN Non-ST elevation myocardial infarction. Patient currently chest pain free and troponin is minimally elevated around 1 status post cardiac cath which showed an three-vessel disease and recommend medical management PLAN: as per discontinued patient started on Plavix, continue atorvastatin, the patient is allerg ic to BET[place] hence we will avoid it and avoid heparin drip as patient has mild hemopty sis which can get worse appreciate cardiology input 2. Aspiration pneumonia on Unasyn Day #2 doing better and Speech consulted who recommende d mechanical soft diet 3. 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 Hypertension well controlled on Losartan. 5. BPH stable on Flomax. 6. Chronic atrial fibrillation. Heart rate well controlled on Digoxin and Xarelto on hold in setting of hemoptysis. #7 acute COPD exacerbation likely secondary to pneumonia Plan continue patient on duo nebs hold Symbicort and changed to Pulmicort twice a day #8 Anemia secondary to on going hemoptysis and check complete iron panel B12 folic to rule out nutrition deficiencies I spent more than 35 minutes. JUNIE DELVALLE MD 10/25/2017 Ariadne El CCC-GASSER MACHINE OPERATOR - 10/25/2017 2:22 PM PDTBEDSIDE SWALLOW GASSER MACHINE OPERATOR Last Visit GASSER MACHINE OPERATOR Received On: 10/25/17 Requires GASSER MACHINE OPERATOR Follow Up: Yes Recommendations Liquids Consistency Recommendations: NPO/No liquids, Sips of thin water ok between meals-wa it 30 min, Ice chips for oral comfort, Other (comments) (sips thin liquid in btwn meals on; DRY tray) Diet Consistency Recommendation: Mechanical Soft, Other (comment) (2-3 swallows per bite/si p, Jello and Ice cream okayd per MD) Recommendations: Dysphagia treatment, Set up with meals, Check on patients frequently throu ght out meals Risk for Aspiration: Mild Compensatory Swallowing Strategies: Upright as possible for all oral intake, Remain upright for 30 minutes after meals, Swallow 2 times per bite/sip, Slow rate presentation, Small bit es/sips, Eat/feed slowly, Effortful swallow, Other (Comment) (Strict oral hygiene, 2-3 swall ows per bite/sip) Recommended Form of Meds: Meds floated in puree, Meds crushed in puree Summary: Pt and spouse seen for dysphagia follow-up treatment to ensure understanding of SS results and recommendations. Provided and reviewed handouts explaining diet restrictions and consistencies. Pt/spouse demo'd understanding able to provide examples of "safe" foods. Pt requesting specific mixed consistencies (i.e.. Jello, Ice cream) understanding elevated r isk of aspiration. ST paged MD to clear these specific items that are outside of current t recommendations. Recommend pt continue mechanical soft diet with dry tray and implementing swallow precautions (2-3 swallows per bite/sip, slow rate, smal bites/sips).Recommend thin liquids only outside of meals with implemented swallow precautions. Recommend meds crushed/f loated in puree. ST to follow-up x 1 if indicated, if family/pt with additional questions. Staff Notified: , RN Plan of Care Treatment Plan: ST to follow, Dysphagia treatment Treatment Frequency: Followup x 1 Care Duration (Days): 2 Days Follow up treatments: Patient/Family education, Diet tolerance monitoring Swallowing Treatment: Yes Patient Assessment Respiratory Status: O2 via nasual cannula History of Intubation: No Behavior/Cognition: Alert, Cooperative Dentition: Adequate Goals are progressing unless otherwise indicated. Dysphagia Goals Care Home Goals: Safe/efficient oral intake Pt will have safe/efficient oral intake : Mechanical soft diet, With min cues, Goal progres sing Short Term Goals: Tolerate liquid consistency Pt will tolerate tolerate liquid consistency : Thin liquids, With min supervision, Goal pro gressing Education Completed Education Topics: Dysphagia: Explain results of session, speech-language pathology role, plan of care, most s afe diet and swallow precautions Completed with: [x] Patient [x] Spouse [] Significant other [] Family [] Caregiver [] Other Completed by: [x] Verbal education [] Demonstration [x] Handout [] Other: Response to Education: [x] Stated Understanding [] Reinforcement necessary [] Return ed demonstration [] Demonstrated understanding [] No evidence of learning [] Refused Ariadne El CCC-GASSER MACHINE OPERATOR Cecilia Mccoy MD - 10/25/2017 5:46 AM PDTFormatting of th is note may be different from the original. [facility] Service: Cardiology Progress Note Name of Gripper Attacher: Cecilia Mccoy MD I have seen the patient on 10/25/2017. Had LHC showed severe disease in LCX and occluded SVG to OM. SUBJECTIVE Denies any chest pain Current Facility-Administered Medications: acetaminophen (TYLENOL) tablet 650 mg, 650 mg, Oral, Q6H PRN OR acetaminophen (TYL ENOL) suppository 650 mg, 650 mg, Rectal, Q6H PRN, Tameka Duke MD ampicillin-sulbactam (UNASYN) 3 g in sodium chloride (IV) 0.9 % 100 mL IVPB, 3 g, Intr avenous, Q6H, Junie Delvalle MD, 3 g at 10/25/17 0410 aspirin chewable tablet 81 mg, 81 mg, Oral, Daily with breakfast, Junie Delvalle MD, 8 1 mg at 10/24/17 1659 atorvastatin (LIPITOR) tablet 40 mg, 40 mg, Oral, Nightly, Tameka Duke MD, Stop ped at 10/24/172055 atropine sulfate injection 0.5 mg, 0.5 mg, Intravenous, Once PRN, Cecilia Mccoy MD azithromycin (ZITHROMAX) 500 mg in sodium chloride (IV) 0.9 % 250 mL IVPB, 500 mg, Int ravenous, Q24H, Tameka Duke MD, 500 mg at 10/24/17 1229 budesonide-formoterol (SYMBICORT) 80-4.5 MCG/ACT inhaler 2 puff, 2 puff, Inhalation, 2 times daily, Tameka Duke MD, 2 puff at 10/24/17 2253 digoxin (LANOXIN) tablet 0.125 mg, 0.125 mg, Oral, Daily, Tameka Duke MD, Stopp ed at 10/23/172244 famotidine (PEPCID) tablet 40 mg, 40 mg, Oral, Daily, Tameka Duke MD, Stopped a t 10/23/172248 fentaNYL (SUBLIMAZE) injection, , , Once PRN, Cecilia Mccoy MD, 50 mcg at 10/24/171918 furosemide (LASIX) tablet 20 mg, 20 mg, Oral, Daily, Tameka Duke MD, Stopped at 10/23/172247 ipratropium-albuterol (DUO-NEB) 0.5-2.5 mg/3mL nebulizer solution 3 mL, 3 mL, Nebuliza tion, Q6H, Tameka Duke MD, 3 mL at 10/25/17 0632 levothyroxine (SYNTHROID) tablet 75 mcg, 75 mcg, Oral, QAM AC, Tameka Duke MD, 75 mcg at 10/25/17 0543 lidocaine 1 % injection, , , Once PRN, Cecilia Mccoy MD, 10 mL at 10/24/171911 losartan (COZAAR) tablet 50 mg, 50 mg, Oral, Daily, Tameka Duke MD, Stopped at 10/23/172247 morphine (PF) injection 2 mg, 2 mg, Intravenous, Q4H PRN, Junie Delvalle MD, 2 mg at 0 10/24/172054 nitroGLYCERIN (NITRO-BID) 2 % ointment 0.5 inch, 0.5 inch, Topical, Q6H, Tameka reynolds MD, 0.5 inch at 10/24/17 0613 nitroGLYCERIN (NITROSTAT) SL tablet 0.4 mg, 0.4 mg, Sublingual, Q5 Min PRN, Tameka posada MD polyethylene glycol (GLYCOLAX) packet 17 g, 17 g, Oral, Daily PRN, Tameka Duke MD sertraline (ZOLOFT) tablet 100 mg, 100 mg, Oral, Daily, Tameka Duke MD, Stopped at 10/23/172247 sodium bicarbonate buffer (NEUT) injection, , , Once PRN, Cecilia Mccoy MD, 5 mL a t 10/24/171911 sodium chloride (bolus) 0.9 % 500 mL, 500 mL, Intravenous, Once PRN, Cecilia Mccoy MD saline lock IV, , , Continuous AND sodium chloride (PF) 0.9 % flush 10 mL, 10 mL, Intravenous, Q8H, Tameka Duke MD, 10 mL at 10/25/17 0410 tamsulosin (FLOMAX) capsule 0.4 mg, 0.4 mg, Oral, after dinner, Tameka Duke MD, 0.4 mg at 10/23/17 225 zolpidem (AMBIEN) tablet 5 mg, 5 mg, Oral, Nightly PRN, Cecilia Mccoy MD OBJECTIVE Vital Signs: BP 117/56 (BP Location: Left upper arm) | Pulse 68 | Temp 99.6 F (37.6 C) (Oral) | R kev 18 | Ht 1.727 m (5' 8") | Wt 71.8 kg (158 lb 4.8 oz) | SpO2 96% | BMI 24.07 kg/m Intake/Output Summary (Last 24 hours) at 10/25/17 0702 Last data filed at 10/25/17 0544 Gross per 24 hour Intake 990.5 ml Output 650 ml Net 340.5 ml Cardiovascular: Regular rhythm, S1 normal and S2 normal. No murmur heard. Pulses: Radial pulses are 2+ on the right side, and 2+ on the left side. Pulmonary/Chest: poor air exchange with mild rhonchi bilaterally. Abdominal: Soft. No tenderness. Musculoskeletal: No edema. Neurological: Alert. No cranial nerve deficit. Skin: Warm and dry. DATA Recent Labs Lab 10/24/17 015 NA 138 K 4.3 CO2 24 BUN 14 CREATININE 1.3 EGFR 54* MG 1.8 Recent Labs Lab 10/24/17 015 WBC 11.05* HGB 11.5* HCT 35.3* MCV 77.5* PLT 160 Recent Labs Lab 10/24/17 0551 10/24/17 0157 10/23/17 2212 TROPONINI 1.28* 1.72* 1.76* TSH -- 4.150 -- Lab Results Component Value Date CHOL 103 10/24/2017 TRIG 116 10/24/2017 LDL 56 10/24/2017 HDL 24 (L) 10/24/2017 GLUF 75 10/24/2017 TSH 4.150 10/24/2017 EK10/24/2017 Reviewed by myself showed atrial fibrillation with [...] site. Last US carotid: ASSESSMENT: Patient is 72 y.o.with the following medical problems: 1. Coronary artery disease, occluded SVG to LCX system, LCX is not amenable to PCI. 2. Non-ST elevation AR. 3. Dysphagia. 4. Hemoptysis minimal, improved. 5. Chronic atrial fibrillation. On rate control strategy and anticoagulation. CHADSVASc sco re of 4. 6. AAA. 7. Coronary artery [place] [id number]. 8. RBBB. 9. Hypertension blood pressures controlled. 10. Chronic obstructive pulmonary disease. 11. History of upper GI bleed due to peptic ulcer was off any antiplatelet therapy. 12. History of vocal cord cancer. Recommendations: Patient tolerated procedure well. Given the recent cardiac event and the above coronary fin dings, will start patient on Clopidogrel for 3-6 months. Stop aspirin for increased risk of bleed given the patient need to be restarted on Rivaroxa ban. Continue to monitor H and H and any sign of increased hemoptysis. P Patient has been off Rivaroxaban for 4 days with no change in patient's hemoptysis. Continue with Losartan, statin. Not a candidate for BB. HR is controlled with atrial fibrillation. Will follow up as an outpatient. Code Status: Full Code Mershed AlSamara, MD 10/25/2017 Luca Toussaint, [facility] - 10/24/2017 8:30 PM PDTNote ccl 49ml/min meds reviewed pharmacy will follow [facility] 2030AlsCecilia wiggins MD - 10/24/2017 6:[facility]iology Pre-Operative History & Physical Interval Update There have been no significant clinical changes since previous encounter. Moderate Sedation Presedation Assessment completed. ASA Classification: ASA 3: Patient with a severe systemic disease Mallampati Classification: II: Visibility of hard and soft palate, upper portion of tonsil s and uvula Angiogram, with its associated alternatives, benefits, and risks, the latter including but not limited to possible need for more than one vascular access site, , AR, CVA, bleedin g (including the need for blood transfusion), vascular damage (including the need for emerge nt surgical repair, including PCI/stent placement or CABG), renal failure (including the pos sible need for short or long-term use of hemodialysis), allergic reactions/anaphylaxis, and the risks of moderate anesthesia/sedation, were discussed in detail. Cecilia Mccoy MD 10/24/2017 *CORE MEASURES REMINDER: If the patient has a known or suspected infection prior to surger y, please add diagnosis to the problem list (consider: Infection 136.9). Junie Delvalle MD - 10/24/2017 3:10 PM PDTFormatting of this note may be different from t kuldeep original. Hospitalist Progress Note Pavithra Rose 72 y.o. [id number] male [facility] Day: LOS: 1 day Patient Summary: 72-year-old gentleman with a past medical history of chronic atrial fibrillation on anticoagulation, history of vocal cord cancer status post treatment, luciano ry artery disease status post CABG in 1995, history of tobacco abuse disorder and COPD, hi story of peptic ulcer disease and GI bleed, history of dysphagia on and off for the last 9 y ears, who recently had abnormal cardiac stress test study who went to [facility] with ongoing productive cough, shortness of breath and hemoptysis, where he was found to hav e positive troponin and chest x-ray showed pneumonia and patient was transferred to [facility] for further workup and treatment. The patient was not put on any anticoagulation se condary to ongoing hemoptysis and Dr. Mccoy from cardiology consulted who recommended to get a CT chest and speech evaluation for ongoing dysphagia before cardiac workup. The patie nt's pneumonia is likely secondary to aspiration, has antibiotic changed to Unasyn. When I went to see the patient he was resting comfortably on the bedside complaining of pro ductive cough, bringing up yellowish-greenish colored phlegm mixed with blood. Otherwise de nied any chest pain, no nausea, no vomiting, no constipation, no diarrhea, though he had bee n having dysphagia, gotten worse in the last month like something is stuck to his throat whe never he eats solid food and sometimes will regurgitate a small amount of food. Scheduled Medications ampicillin-sulbactam 3 g Intravenous Q6H atorvastatin 40 mg Oral Nightly azithromycin 500 mg Intravenous Q24H budesonide-formoterol 2 puff Inhalation 2 times daily digoxin 0.125 mg Oral Daily famotidine 40 mg Oral Daily furosemide 20 mg Oral Daily ipratropium-albuterol 3 mL Nebulization Q6H levothyroxine 75 mcg Oral QAM AC losartan 50 mg Oral Daily nitroGLYCERIN 0.5 inch Topical Q6H sertraline 100 mg Oral Daily sodium chloride (PF) 10 mL Intravenous Q8H tamsulosin 0.4 mg Oral after dinner Continuous Infusions PRN Medications acetaminophen OR acetaminophen, morphine, nitroGLYCERIN, polyethylene glycol, zolpidem Allergy: Allergies Allergen Reactions Beta Adrenergic Blockers Anaphylaxis Diltiazem Edema Gabapentin Other (See Comments) COURTROOM REPORTER Imipramine Other (See Comments) Urinary retention Metoprolol Swelling Propranolol Other (See Comments) raynaud's OBJECTIVE Vital Signs: BP 131/72 (BP Location: Right upper arm) | Pulse 72 | Temp 98.6 F (37 C) (Oral) | Re sp 18 | Ht 1.727 m (5' 8") | Wt 71.8 kg (158 lb 4.8 oz) | SpO2 96% | BMI 24.07 kg/m Temp: [97.6 F (36.4 C)-98.6 F (37 C)] 98.6 F (37 C) (10/24 1122) BP: (127-164)/(61-74) 131/72 (10/24 1121) Heart Rate: [72-82] 72 (10/24 1121) Resp: [16-20] 18 (10/24 1121) SpO2: [93 %-98 %] 96 % (10/24 1121) Height: [172.7 cm (5' 8")] 172.7 cm (5' 8") (10/23 2125) Weight: [71.8 kg (158 lb 4.8 oz)] 71.8 kg (158 lb 4.8 oz) (10/23 2125) BMI (Calculated): [24.1] 24.1 (10/23 2125) I&O Detailed Table: Intake/Output Summary (Last 24 hours) at 10/24/17 1511 Last data filed at 10/24/17 0630 Gross per 24 hour Intake 0 ml Output 875 ml Net -875 ml Hemodynamics Last 24hrs: Examination: Constitutional: Alert and oriented to person, place, and time. Appears in NAD Cardiovascular: Normal rate, irregular irregular rhythm, normal heart sounds and intact dis antione pulses. Exam reveals no gallop and no friction rub. No murmur heard. Pulmonary/Chest: Effort normal and breath sounds normal. No stridor. No respiratory distres s. no wheezes. no rales. exhibits no tenderness. Except decreased BS at bases Abdominal: Soft. Bowel sounds are normal. exhibits no distension and no mass. There is no t enderness. There is no rebound and no guarding. Musculoskeletal: Normal range of motion.exhibits no tenderness. exhibits no edema. Neurological: Alert and oriented to person, place, and time. Has normal reflexes. display s normal reflexes. No cranial nerve deficit. Exhibits normal muscle tone. Skin: Skin is warm and dry. No rash noted. No erythema. No pallor. Psychiatric: Has a normal mood and affect. Behavior is normal. Judgment normal. Laboratory: Glucose: Results Procedure Component Value Units Date/Time Sputum culture [[id number]] Collected: 10/24/17 0400 Specimen: Sputum from Sputum Updated: 10/24/17 0705 Troponin I [[id number]] (Abnormal) Collected: 10/24/17 0551 Specimen: Blood Updated: 10/24/17 0658 TROPONIN I 1.28 (HH) ng/mL CBC W/Auto Diff (Reflex to Manual) [[id number]] (Abnormal) Collected: 10/24/17156 Specimen: Blood Updated: 10/24/17436 WBC 11.05 (H) K/uL RBC 4.56 M/uL HGB 11.5 (L) g/dL HCT 35.3 (L) % MCV 77.5 (L) fl MCH 25.1 (L) pg MCHC 32.4 g/dL RDW SD 57.3 (H) fl PLT 160 K/uL MPV 10.1 fl DIFF TYPE MANUAL Neutrophils Manual 85 % Lymphocytes Manual 8 % Monocytes Manual 6 % Eosinophils Manual 1 % Neutrophils Absolute 9.40 (H) K/uL Lymphocytes Absolute 0.88 (L) K/uL Monocytes Absolute 0.66 K/uL Eosinophils Absolute 0.11 K/uL Platelet Estimate [facility] MORPHOLOG[facility] 2+ Magnesium [[id number]] Collected: 10/24/17156 Specimen: Blood Updated: 10/24/17433 MAGNESIUM 1.8 mg/dL Phosphorus [[id number]] Collected: 10/24/17156 Specimen: Blood Updated: 10/24/17433 PHOSPHORUS 3.4 mg/dL TSH [[id number]] Collected: 10/24/17156 Specimen: Blood Updated: 10/24/17433 TSH 4.150 uIU/mL Basic metabolic panel [[id number]] (Abnormal) Collected: 10/24/17156 Specimen: Blood Updated: 10/24/17433 SODIUM 138 mmol/L POTASSIUM 4.3 mmol/L CHLORIDE 104 mmol/L CO2 24 mmol/L ANION GAP AGAP 14 mmol/L GLUCOSE 75 mg/dL BUN 14 mg/dL CREATININE 1.3 mg/dL BUN/CREAT 11 CALCIUM 8.6 mg/dL EGFR 54 (L) mL/min/1.73m2 Lipid panel [[id number]] (Abnormal) Collected: 10/24/17156 Specimen: Blood Updated: 10/24/17433 CHOLESTEROL 103 mg/dL Triglycerides 116 mg/dL HDL CHOL 24 (L) mg/dL LDL CALC 56 mg/dL Troponin I [[id number]] (Abnormal) Collected: 10/24/17156 Specimen: Blood Updated: 10/24/17 025 TROPONIN I 1.72 (HH) ng/mL Protime-INR [[id number]] Collected: 08/09/18 0157 Specimen: Blood Updated: 10/24/17 0221 INR 1.2 Septic Lactic Acid [[id number]] Collected: 10/23/17 2350 Updated: 10/24/17 0023 LACTIC ACID 1.1 mmol/L Troponin I [[id number]] (Abnormal) Collected: 10/23/172 Specimen: Blood Updated: 10/23/17 2254 TROPONIN I 1.76 () ng/mL CBC: Lab Results Component Value Date WBC 11.05 (H) 10/24/2017 RBC 4.56 10/24/2017 HGB 11.5 (L) 10/24/2017 HCT 35.3 (L) 10/24/2017 MCV 77.5 (L) 10/24/2017 MCH 25.1 (L) 10/24/2017 MCHC 32.4 10/24/2017 RDW 57.3 (H) 10/24/2017 PLT 160 10/24/2017 MPV 10.1 10/24/2017 DIFFTYPE MANUAL 10/24/2017 CMP: Lab Results Component Value Date NA 138 10/24/2017 K 4.3 10/24/2017 CL 104 10/24/2017 CO2 24 10/24/2017 ANIONGAP 14 10/24/2017 GLUF 75 10/24/2017 BUN 14 10/24/2017 CREATININE 1.3 10/24/2017 BCR 11 10/24/2017 CA 8.6 10/24/2017 EGFR 54 (L) 10/24/2017 Magnesium: Lab Results Component Value Date MG 1.8 10/24/2017 Phosphorus: Lab Results Component Value Date PHOS 3.4 10/24/2017 PT/INR: Lab Results Component Value Date INR 1.2 10/24/2017 Last 3 Troponin: Lab Results Component Value Date TROPONINI 1.28 (HH) 10/24/2017 TROPONINI 1.72 (HH) 10/24/2017 TROPONINI 1.76 () 10/23/2017 ABG: No results found for: POCPH, POCPCO, POCPO2, POCHCO, POCTCO2, POCBD, BEART, POCSO2, P OCCMT Xr Chest 2 View Result Date: 10/24/2017 HISTORY: Precordial chest pain. Question pneumonia. COMPARISON: 10/23/17. TECHNIQUE: PA and lateral films of the chest. FINDINGS: Median sternotomy. Heart size is upper normal. Pulmon kenneth venous congestion. Bilateral perihilar mixed interstitial and airspace infiltrates again noted, essentially unchanged. No effusions. Subtle thickening of the major and minor fissur es. Mild degenerative changes of the spine. Osteopenia. 1. Borderline cardiac enlargement, with probable pulmonary edema. Atypical pneumonitis see ms less likely. X-ray Chest 2 View Frontal & Lateral Result Date: 10/23/2017 This is a non-reportable procedure without a radiologist report and is used for image [employer] only Ct Head Without Contrast Result Date: 10/23/2017 This is a non-reportable procedure without a radiologist report and is used for image [employer] [facility] only Ct Chest Without Contrast Result Date: 10/24/2017 HISTORY: 72 years year-old Male, hemoptysis. TECHNIQUE: CT through the chest. Noncontrast e xamination. Automatic dose adjustment to minimize patient exposure. PRIOR EXAMINATION: Earli er chest radiograph. 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 Lung windows demonstrate bila teral reticular and confluent infiltrates throughout mid lower lung pack. In the posterior medial left lung on image 81 series 3 in underlying mass would be difficult to exclude, but this is simply a larger multiple similar findings throughout both lungs. Inflammatory nodul es and/or inflammatory masses are very plausibly superimposed In the mid central superior le ft lung the lung disease is more cystic in appearance, asymmetric centrilobular emphysema/CO PD and superimposed edema edema Bone windows demonstrate degenerative and postprocedural yogesh nges, without acute appearing lesion or active fracture. The sternotomy is healed. Nonaggres sive and degenerative changes not uncommon for age. What is seen of the upper abdomen demons trates fatty liver. Splenomegaly. No adenopathy or fluid collection discernible. Large hiatu s hernia. Within the chest dense coronary calcification, interventional changes, diffuse car diac megaly and hilar vascular congestion symmetrically distributed in midlung pack. Crews es post CABG. 1. At the very least there is pulmonary vascular congestion, edema-and centrilobular emphys will is superimposed 2. Pulmonary infiltrates are asymmetric and throughout the left hemithor ax. This could be due to superimposed infection of the left upper lung and there is a small effusion also 3. Lastly, there are inflammatory appearing airspace or infiltrative nodules s uperimposed throughout Will be important to repeat this examination when the patient's acute issues are resolved to evaluate for underlying lesion/mass Echo Cardiac Adult Complete Result Date: 10/24/2017 Patient Name: PAVITHRA ROSE Date of : 1945 Performing Physici an: Paulhed Alsamara INDIC ATIONS sob,h/o 4 cabg CONCLUSIONS 1. The left ventricle cavity is no rmal in size, mild concentric hypertrophy and normal systolic function EF 55%. Mild inferio r and inferolateral hypokinetic segments. 2. Mild degenerative changes in the aortic and rose ral valves. 3. There is no pericardial effusion. FINDINGS -------- ECG rhythm: Atrial fibril lation. Study: A 2-dimensional transthoracic echocardiogram with m-mode, spectral and color flow Doppler was perfomed. Study: This was a technically adequate study. Left Ventricle: Ove rall left ventricular systolic function is low-normal with, an EF 55 %. Left Ventricle: The left ventricle cavity size is normal. Left Ventricle: There is mild concentric left ventricu lar hypertrophy. Right Ventricle: The RV was not well visualized. Left Atrium: The left atri um is mildly dilated. Right Atrium: The right atrial size is normal. Aortic Valve: The aorti c valve is trileaflet. Aortic Valve: The aortic valve is mildly calcified. Aortic Valve: The re is mild aortic regurgitation. Mitral Valve: There is trace mitral regurgitation. Mitral V alve: Mild mitral annular calcification present. Tricuspid Valve: The tricuspid valve appear s structurally normal. Tricuspid Valve: Trace tricuspid regurgitation present. Tricuspid Aleksandra ve: There is no evidence of pulmonary hypertension. Pulmonic Valve: The pulmonic valve is no rmal. Pulmonic Valve: Mild pulmonic regurgitation. Pulmonic Valve: Mild degenerative changes in the aortic and mitral valves. Pericardium: There is no pericardial effusion. Pericardium : No pleural effusion seen. IVC/Hepatic Veins: The inferior vena cava is normal in size and collapses > 50 % with sniff, indicating normal central venous pressures. MEASUREMENTS ------ ------- Ao asc: 4.19 cm Ao sinus: 3.[address] junct: 3.01 cm IVC: 1.42 cm LA Diam: 5.50 cm LA Major: 5.97 cm EDV(Teich): 106.74 ml IVSd: 1.19 cm LVIDd: 4.78 cm LVPW d: 1.21 cm LVOT Diam: 2.25 cm %FS: 26.84 % EF(Teich): 52.32 % ESV(Teich): 50.89 ml IVSs: 1.81 cm LVIDs: 3.50 cm LVPWs: 1.71 cm SV(Teich): 55.85 ml RA Major: 5.04 cm LVEF MOD A4C: 55.16 % SV MOD A4C: 49.58 ml LVEDV MOD A4C: 89.88 ml LVLd A4C: 7.50 c m LVESV MOD A4C: 40.30 ml LVLs A4C: 5.87 cm LAESV(A-L): 76.74 ml LAESV Index (A-L): 41.48 ml/m2 LAAs A2C: 17.05 cm2 LAESV A-L A2C: 48.56 ml LALs A2C: 5.08 cm LAAs A4C: 26.95 cm2 LAESV A-L A4C: 95.07 ml LALs A4C: 6.48 cm Ao Diam: 4.03 cm AV Cusp: 1.91 c m LA Diam: 4.92 cm LA/Ao: 1.22 D-E Excursion: 2.29 cm E-F Fergus: 0.09 m/s AV maxP.18 mmHg AV meanP.51 mmHg AV Vmax: 1.59 m/s AV Vmean: 1.23 m/s AV VTI: 28.06 cm FRANKY Vmax: 3.26 cm2 FRANKY (VTI): 3.35 cm2 AVAI Vmax: 0.00 cm2/m2 AVAI (VTI): 0.00 c m2/m2 LVOT maxP.86 mmHg LVOT meanP.16 mmHg LVSI Dopp: 50.95 ml/m2 LVSV Dopp: 94.27 ml LVOT Vmax: 1.31 m/s LVOT Vmean: 0.84 m/s LVOT VTI: 23.69 cm MV E De: 0.93 m/s E' Lat: 0.12 m/s E' Sept: 0.06 m/s PRend P.85 mmHg PRend Vmax: 1.48 m/s HR: 77.27 BPM PV maxP.37 mmHg PV meanP.56 mmHg PV Vmax: 0.91 m/s PV Vmean: 0. 56 m/s PV VTI: 12.48 cm RV S': 0.08 m/s TR maxP.05 mmHg TR Vmax: 3.04 m/s TV A Ed: 0.00 m/s TV Dec Fergus: 3.93 m/s2 TV Dec Time: 207.73 ms TV E Ed: 0.56 m/s TV E /A Ratio: 69.55 Pulp Grinder: ADAM Authenticated by: Cecilia Mccoy Report Date/Time: 13:7:33 1. The left ventricle cavity is normal in size, mild concentric hypertrophy and normal sys tolic function EF 55%. Mild inferior and inferolateral hypokinetic segments. 2. Mild degener ative changes in the aortic and mitral valves. 3. There is no pericardial effusion. PROBLEM LIST Principal Problem: NSTEMI (non-ST elevated myocardial infarction) (HCC) Active Problems: Aortic aneurysm (HCC) ASCVD (arteriosclerotic cardiovascular disease) Chronic atrial fibrillation (HCC) Essential hypertension Precordial pain Hemoptysis Multifocal pneumonia Chronic bronchitis (HCC) Chronic maxillary sinusitis Obstructive sleep apnea Peptic ulcer disease Moderate protein-calorie malnutrition (HCC) Severe protein-calorie malnutrition (HCC) Dysphagia Aspiration pneumonia (HCC) ASSESSMENT & PLAN Non-ST elevation myocardial infarction. Patient currently chest pain free and troponin is minimally elevated around 1. PLAN: Start the patient on baby aspirin 81 mg, atorvastatin, the patient is allergic to BETA BLOC KER hence we will avoid it and avoid heparin drip as patient has mild hemoptysis which can g et worse and case discussed with Dr. Mccoy, curb builder, who is in agreement and will ke ep the patient nothing by mouth after midnight for possible cardiac cath. 2. Aspiration pneumonia on Unasyn Day #1 and Speech consulted who recommended swallow vide o study. 3. 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 4. Hypertension well controlled on Losartan. 5. BPH stable on Flomax. 6. Chronic atrial fibrillation. Heart rate well controlled on Digoxin and Xarelto on hold in setting of hemoptysis. I spent more than 35 minutes. COPD stable on symbicort JUNIE DELVALLE MD 10/24/2017 Mary Baldwin, RD - 10/24/2017 3:05 PM PDTFormatting of this note may be different from the original. 10/24/17 1400 Subjective Timepoint Admit Pt c/o Pt triggered for screen secondary to wt loss, dysphagia. Admitted d/t NSTEMI, h/o vo tashi cord cancer and dysphagia. Spoke with pt and . Reported by Patient Diet Experience Self-selected diet(s) followed Reports following a lower-sodium diet at home, typically eat s 2-3 meals per day. Avoids foods like rice, certain cuts of potato (fries, baked potato) an d bread d/t dysphagia. Reports liking vegetables (brussel sprouts, asparagus, broccoli) meat /chicken, ice cream, and donuts. Says he also drinks chocolate Ensure at home occassionally. Reports intake has declined the past month - estimate eating 60-75% of baseline intake. Fluid / Beverage Intake Oral Fluids Amount NPO Liquid Meal Replacement or Supplement Will send Ensure Enlive daily - thickened as needed u bonifacio diet advancement. Food Intake Amount of Food Pt reports he is very hungry as he hasn't eaten in two days. 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 Type of Food / Meals NPO Nutrition-Focused Physical Findings Overall Appearance Reports he appears much thinner and clothes have not been fitting him as well. Body Language Pt very pleasant. Extremities, Muscles and Bones Bruising Digestive System (Mouth to Rectum) GASSER MACHINE OPERATOR following. Anthropometrics Weight change Admit wt: 71.8 kg (158.25 lbs). Pt is 102% of IBW - BMI of 24. Pt reports wt is down from 176 lbs in 6 months indicating a severe 10% loss. Further wt loss to be avoided . Biochemical data, medical tests, and procedures reviewed Biochemical data, medical tests, and procedures reviewed Labs reviewed. Estimated Energy Needs Total Energy Estimated Needs 1042-6905 kcal/day Method for Estimating Needs 25-30 kcal/kg at 71.8 kg admit wt Estimated Protein Needs Total Protein Estimated Needs 86-108 g/day Method for Estimating Needs 1.2-1.5 g/kg Recommendations Recommended energy needs ADAT to cardiac with textures/consistencies per GASSER MACHINE OPERATOR. Upon diet adv ancement, encourage increased energy and protein intake. Ensure Enlive daily. Determine pt's food preferences and provide high-protein, nutrient-dense foods. Monitor and follow per pro tocol. Nutritional Risk Nutritional risk High Follow up date 10/27/17 Malnutrition Evaluation Estimated energy intake time frame 1 Month Estimated % energy intake last 1 month (!) 60 % RD Assessed Weight 71.8 kg (158 lb 4.6 oz) Weight Loss time frame 6 Months Weight 6 months ago 79.8 kg (176 lb) % weight loss from 6 months ago (!) -10.06 Malnutrition in the Context Of Chronic Illness Clinical Characteristics indicative of moderate malnutrition less than 75% of EER within 1 month;10% weight loss over 6 months;Mild muscle mass depletion Protein-Calorie Malnutrition Type (!) Moderate Lucy Doshi, RD 10/24/2017 Helen Soto [facility] - 10/23/2017 10:07 PM PDTFormatting of this note may be different from the original. Renal Dosing Monitoring: Pavithra Rose 72 y.o. male Ht Readings from Last 1 Encounters: 10/23/17 1.727 m (5' 8") Wt Readings from Last 1 Encounters: 10/23/17 71.8 kg (158 lb 4.8 oz) Creatinine clearance cannot be calculated (No order found.) Pharmacy dosing for renal function per Dr. Duke Medication(s): digoxin, famotidine, rivaroxaban Plan per protocol: Medication / Dose: Unable to estimate renal function at this time as there is no value avai lable for serum creatinine. Pharmacy will continue monitoring patient for appropriate dosi ng per renal function. Pharmacist: Helen Soto 10/23/2017 10:06 PM in this encounter Plan of Treatment +--------+ + + + + | Date | Type | Specialty | Care Team | Description | +--------+ + + + + | 11/28/ | Office | Pulmonology | Elia, | | | 2017 | Visit | | Mary Pinto, | | | | | | MD [address] | | | | | | [place] [address] | | | | | | [phone] | | | | | | | | +--------+ + + + + | 12/04/ | Office | Cardiology | Cecilia Mccoy, | | | 2017 | Visit | | MD [address] | | | | | | Dr [address], | | | | | | [place] [address] | | | | | | [phone] | | | | | | | | +--------+ + + + + | 01/08/ | Office | Cardiology | Cecilia Mccoy, | | | 2017 | Visit | | MD [address] | | | | | | [address], | | | | | | [place] [address] | | | | | | [phone] | | | | | | | [...] | 2017 | Visit | | [address] | | | | | | [place] | | | | | | [address] | | | | | | | | +--------+ + + + + + +--------+ + + | Name | Priori | Associated Diagnoses | Order Schedule | | | ty | | | + +--------+ + + | Ambulatory referral to Speech | Routin | Dysphagia, | Ordered: 10/26/2017 | | Therapy, Eval and Treat | e | unspecified type | | + +--------+ + + as of this encounter Procedures + +--------+ + + + | Procedure Name | Priori | Date/Time | Associated Diagnosis | Comments | | | ty | | | | + +--------+ + + + | XR CHEST 2 VIEW | STAT | 10/26/2017 | | Results for this | | FRONTAL AND LATERAL | | 9:52 AM | | procedure are in the | | | | PDT | | results section. | + +--------+ + + + | CBC W/AUTO DIFF | Routin | 10/26/2017 | | Results for this | | (REFLEX TO MANUAL) | e | 5:35 AM | | procedure are in the | | | | PDT | | results section. | + +--------+ + + + | COMPREHENSIVE | Routin | 10/26/2017 | | Results for this | | METABOLIC PANEL | e | 5:35 AM | | procedure are in the | | | | PDT | | results section. | + +--------+ + + + | IRON AND TIBC | Routin | 10/25/2017 | | Results for this | | | e | 2:43 PM | | procedure are in the | | | | PDT | | results section. | + +--------+ + + + | FOLATE | Routin | 10/25/2017 | | Results for this | | | e | 2:43 PM | | procedure are in the | | | | PDT | | results section. | + +--------+ + + + | FERRITIN | Routin | 10/25/2017 | | Results for this | | | e | 2:43 PM | | procedure are in the | | | | PDT | | results section. | + +--------+ + + + | VITAMIN B12 | Routin | 10/25/2017 | | Results for this | | | e | 2:43 PM | | procedure are in the | | | | PDT | | results section. | + +--------+ + + + | CBC W/AUTO DIFF | Routin | 10/25/2017 | | Results for this | | (REFLEX TO MANUAL) | e | 10:00 AM | | procedure are in the | | | | PDT | | results section. | + +--------+ + + + | COMPREHENSIVE | Routin | 10/25/2017 | | Results for this | | METABOLIC PANEL | e | 10:00 AM | | procedure are in the | | | | PDT | | results section. | + +--------+ + + + | CL ULTRASOUND | Routin | 10/24/2017 | | Results for this | | GUIDANCE VASCULAR | e | 8:12 PM | | procedure are in the | | ACCESS | | PDT | | results section. | + +--------+ + + + | CL CORONARY ANGIO | Routin | 10/24/2017 | | Results for this | | WITH GRAFTS | e | 8:09 PM | | procedure are in the | | | | PDT | | results section. | + +--------+ + + + | XR SWALLOWING | Routin | 10/24/2017 | | Results for this | | FUNCTION VIDEO | e | 4:50 PM | | procedure are in the | | | | PDT | | results section. | + +--------+ + + + | CT CHEST WO CONTRAST | Routin | 10/24/2017 | | Results for this | | | e | 11:22 AM | | procedure are in the | | | | PDT | | results section. | + +--------+ + + + | XR CHEST 2 VIEW | Routin | 10/24/2017 | | Results for this | | FRONTAL AND LATERAL | e | 11:03 AM | | procedure are in the | | | | PDT | | results section. | + +--------+ + + + | ECHO CARDIAC ADULT | Routin | 10/24/2017 | | Results for this | | COMPLETE | e | 7:00 AM | | procedure are in the | | | | PDT | | results section. | + +--------+ + + + | EKG STANDARD 12 LEAD | Routin | 10/24/2017 | | Results for this | | | e | 6:28 AM | | procedure are in the | | | | PDT | | results section. | + +--------+ + + + | TROPONIN I | STAT | 10/24/2017 | | Results for this | | | | 5:51 AM | | procedure are in the | | | | PDT | | results section. | + +--------+ + + + | SPUTUM CULT W/ GRAM | Timed | 10/24/2017 | | Results for this | | STAIN | | 4:00 AM | | procedure are in the | | | | PDT | | results section. | + +--------+ + + + | TROPONIN I | Timed | 10/24/2017 | | Results for this | | | | 1:57 AM | | procedure are in the | | | | PDT | | results section. | + +--------+ + + + | PROTIME-INR | Routin | 10/24/2017 | | Results for this | | | e - AM | 1:57 AM | | procedure are in the | | | | PDT | | results section. | + +--------+ + + + | CBC W/AUTO DIFF | Routin | 10/24/2017 | | Results for this | | (REFLEX TO MANUAL) | e - AM | 1:57 AM | | procedure are in the | | | | PDT | | results section. | + +--------+ + + + | TSH | Routin | 10/24/2017 | | Results for this | | | e - AM | 1:57 AM | | procedure are in the | | | | PDT | | results section. | + +--------+ + + + | PHOSPHOROUS | Routin | 10/24/2017 | | Results for this | | | e - AM | 1:57 AM | | procedure are in the | | | | PDT | | results section. | + +--------+ + + + | MAGNESIUM | Routin | 10/24/2017 | | Results for this | | | e - AM | 1:57 AM | | procedure are in the | | | | PDT | | results section. | + +--------+ + + + | LIPID PANEL | Routin | 10/24/2017 | | Results for this | | | e - AM | 1:57 AM | | procedure are in the | | | | PDT | | results section. | + +--------+ + + + | BASIC METABOLIC | Routin | 10/24/2017 | | Results for this | | PANEL | e - AM | 1:57 AM | | procedure are in the | | | | PDT | | results section. | + +--------+ + + + | [facility] | HATTIE | 10/23/2017 | | Results for this | | ACID | | 11:50 PM | | procedure are in the | | | | PDT | | results section. | + +--------+ + + + | TROPONIN I | Timed | 10/23/2017 | | Results for this | | | | 10:12 PM | | procedure are in the | | | | PDT | | results section. | + +--------+ + + + in this encounter Results XR chest 2 view (10/26/2017 9:52 AM) + + + | Impressions | Performed At | + + + | 1. There is improved aeration of the left upper lobe. 2. Hazy | [facility] | | opacities throughout the lung may reflect some residual acute | RADIOLOGY | | pneumonitis. Electronically signed by Sharan Reeves MD on | | | 10/26/2017 10:02 AM | | + + + + + + | Narrative | Performed At | + + + | PAVITHRA ROSE 1945 72 years Male XR CHEST 2 VIEW FRONTAL AND | [facility] | | LATERAL 10/26/2017 9:52 AM INDICATION: Shortness of breath with | RADIOLOGY | | chest pain COMPARISON: 10/24/2017 TECHNIQUE: Two view chest, PA | | | and lateral views FINDINGS: Median sternotomy wires are | | | maintained. The cardiac silhouette is borderline enlarged. There is no | | | mediastinal widening or shift. Mild calcification of the aortic arch | | | is present. There is improving aeration of the left upper lobe. Some | | | residual opacities remain along the lower lobes bilaterally. The | | | pulmonary markings are normal in caliber. There is mild degenerative | | | disc disease of the thoracic spine. | | + + + + + | Procedure Note | + + | Steven, Rad Results In - 10/26/2017 10:07 AM PDT PAVITHRA Sidhu AILYN89 years MaleXR | | CHEST 2 VIEW FRONTAL AND LATERAL10/26/2017 9:52 AMINDICATION: Shortness of breath with | | chest painCOMPARISON: 10/24/2017TECHNIQUE: Two view chest, PA and lateral viewsFINDINGS: | | Median sternotomy wires are maintained. The cardiac silhouette is borderline enlarged. | | There is no mediastinal widening or shift. Mild calcification of the aortic arch is | | present. There is improving aeration of the left upper lobe. Some residual opacities | | remain along the lower lobes bilaterally. The pulmonary markings are normal in caliber. | | There is mild degenerative disc disease of the thoracic spine.IMPRESSION:1. There is | | improved aeration of the left upper lobe.2. Hazy opacities throughout the lung may | | reflect some residual acute pneumonitis.Electronically signed by Sharan Reeves MD on | | 10/26/2017 10:02 AM | | | |FINDINGS: Median sternotomy wires are maintained. The cardiac silhouette is borderline enla rged. There is no mediastinal widening or shift. Mild calcification of the aortic arch is pr esent. There is improving aeration | |of the left upper lobe. Some residual opacities remain along the lower lobes bilaterally. T he pulmonary markings are normal in caliber. There is mild degenerative disc disease of the thoracic spine. | | | |IMPRESSION: | |1. There is improved aeration of the left upper lobe. | |2. Hazy opacities throughout the lung may reflect some residual acute pneumonitis. | | | | | + + + + + + + | Performing | Address | City/State/Zipcode | Phone Number | | Organization | | | | + + + + + | [facility] | [address] | [place] [address] | | + + + + + Comprehensive metabolic panel (10/26/2017 5:35 AM) + + + + + | Component | Value | Ref Range | Performed At | + + + + + | SODIUM | 143 | 135 - 145 mmol/L | [facility] | | | | | [facility] | + + + + + | POTASSIUM | 3.3 (L) | 3.5 - 4.9 mmol/L | [facility] | | | | | [facility] | + + + + + | CHLORIDE | 108 | 99 - 109 mmol/L | [facility] | | | | | [facility] | + + + + + | CO2 | 26 | 23 - 32 mmol/L | [facility] | | | | | [facility] | + + + + + | ANION GAP AGAP | 12 | 5 - 20 mmol/L | [facility] | | | | | [facility] | + + + + + | GLUCOSE | 101 (H) | 65 - 99 mg/dL | [facility] | | | | | [facility] | + + + + + | BUN | 12 | 8 - 25 mg/dL | [facility] | | | | | [facility] | + + + + + | CREATININE | 1.1 | 0.70 - 1.30 mg/dL | [facility] | | | | | [facility] | + + + + + | BUN/CREAT | 11 | | [facility] | | | | | [facility] | + + + + + | CALCIUM | 8.5 | 8.5 - 10.5 mg/dL | [facility] | | | | | [facility] | + + + + + | TOTAL PROTEIN | 5.5 (L) | 6.3 - 8.2 g/dL | [facility] | | | | | [facility] | + + + + + | Albumin | 2.5 (L) | 3.3 - 4.8 g/dL | [facility] | | | | | [facility] | + + + + + | GLOBULIN | 3.0 | 1.3 - 4.9 g/dL | [facility] | | | | | [facility] | + + + + + | A/G | 0.8 (L) | 1.0 - 2.4 | [facility] | | | | | [facility] | + + + + + | TBIL | 0.7 | 0.1 - 1.5 mg/dL | [facility] | | | | | [facility] | + + + + + | ALK PHOS | 99 | 35 - 115 U/L | [facility] | | | | | [facility] | + + + + + | AST | 16 | 10 - 45 U/L | [facility] | | | | | [facility] | + + + + + | ALT | 14 | 10 - 65 U/L | [facility] | | | | | [facility] | + + + + + | EGFR | >60Comment: GFR <60: | >60 mL/min/1.73m2 | [facility] | | | CHRONIC KIDNEY DISEASE, | | LABORATORY | | | IF FOUND OVER A 3 MONTH | | | | | PERIOD.GFR <15: KIDNEY | | | | | FAILURE.FOR | | | | | AMERICANS, MULTIPLY THE | | | | | CALCULATED GFR BY | | | | | 1.210.This eGFR is | | | | | calculated using the | | | | | MDRD IDIA traceable | | | | | equation.Testing | | | | | performed at [facility], [address] | | | | | [facility], | | | | | [place] [address] | | | + + + + + + + | Specimen | + + | Blood | + + + + + + + | Performing | Address | City/State/Zipcode | Phone Number | | Organization | | | | + + + + + | [facility] | [address] | [place] [address] | [phone] | | LABORATORY | [address] | | | + + + + + CBC W/Auto Diff (Reflex to Manual) (10/26/2017 5:35 AM) + + + + + | Component | Value | Ref Range | Performed At | + + + + + | WBC | 5.20 | 3.80 - 11.00 K/uL | [facility] | | | | | [facility] | + + + + + | RBC | 3.71 (L) | 4.20 - 5.70 M/uL | [facility] | | | | | [facility] | + + + + + | HGB | 9.6 (L) | 13.2 - 17.0 g/dL | [facility] | | | | | [facility] | + + + + + | HCT | 28.4 (L) | 39.0 - 50.0 % | [facility] | | | | | [facility] | + + + + + | MCV | 76.7 (L) | 80.0 - 100.0 fl | [facility] | | | | | [facility] | + + + + + | MCH | 25.9 (L) | 27.0 - 34.0 pg | [facility] | | | | | [facility] | + + + + + | MCHC | 33.8 | 32.0 - 35.5 g/dL | [facility] | | | | | [facility] | + + + + + | RDW SD | 57.3 (H) | 37 - 53 fl | [facility] | | | | | [facility] | + + + + + | PLT | 132 (L) | 150 - 400 K/uL | [facility] | | | | | [facility] | + + + + + | MPV | 9.9 | fl | [facility] | | | | | [facility] | + + + + + | DIFF TYPE | AUTOMATED | | [facility] | | | | | [facility] | + + + + + | NEUTROPHILS | 76.04 | % | [facility] | | | | | [facility] | + + + + + | LYMPHOCYTES | 11.53 | % | [facility] | | | | | [facility] | + + + + + | MONOCYTES | 6.09 | % | [facility] | | | | | [facility] | + + + + + | EOSINOPHILS | 5.65 | % | [facility] | | | | | [facility] | + + + + + | BASOPHILS | 0.69 | % | [facility] | | | | | [facility] | + + + + + | NEUTROPHILS ABS | 3.95 | 1.90 - 7.40 K/uL | [facility] | | | | | [facility] | + + + + + | LYMPHOCYTES ABS | 0.60 (L) | 1.00 - 3.90 K/uL | [facility] | | | | | [facility] | + + + + + | MONOCYTES ABS | 0.32 | 0.00 - 0.80 K/uL | [facility] | | | | | [facility] | + + + + + | EOSINOPHILS ABS | 0.29 | 0.00 - 0.50 K/uL | [facility] | | | | | [facility] | + + + + + | BASOPHILS ABS | 0.04 | 0.00 - 0.10 K/uL | [facility] | | | | | [facility] | + + + + + | MORPHOLOGY | 2+Comment: | | [facility] | | | OVALO2+ANISO1+MICRONORMA | | LABORATORY | | | L PLT MORPHTesting | | | | | performed at [facility], [address] | | | | | [facility], | | | | | [place] [address] | | | | |MICRO | | | | |NORMAL PLT MORPH | | | | |Testing performed at [facility], [address] [place] [address] | | | | | | | | + + + + + + + | Specimen | + + | Blood | + + + + + + + | Performing | Address | City/State/Zipcode | Phone Number | | Organization | | | | + + + + + | [facility] | [address] [facility] [address] | [place] [address] | [phone] | | LABORATORY | [address]vd[address] | | | + + + + + Folate (10/25/2017 2:43 PM) + + + + + | Component | Value | Ref Range | Performed At | + + + + + | FOLATE | 18.6Comment: Testing | >5.4 ng/mL | [facility] | | | performed at [facility], [address] | | LABORATORY | | | [facility], | | | | | [place] [address] | | | + + + + + + + | Specimen | + + | Blood | + + + + + + + | Performing | Address | City/State/Zipcode | Phone Number | | Organization | | | | + + + + + | [facility] | [address] | [place] [address] | [phone] | | LABORATORY | [address]vd. | | | + + + + + Ferritin (10/25/2017 2:43 PM) + + + + + | Component | Value | Ref Range | Performed At | + + + + + | FERRITIN | 156Comment: Testing | 11 - 450 ng/mL | [facility] | | | performed at [facility], [address] | | LABORATORY | | | [facility], | | | | | [place] [address] | | | + + + + + + + | Specimen | + + | Blood | + + + + + + + | Performing | Address | City/State/Zipcode | Phone Number | | Organization | | | | + + + + + | [facility] | [address] [facility] [address] | [place] [address] | [phone] | | LABORATORY | [address]vd[address] | | | + + + + + Vitamin B12 (10/25/2017 2:43 PM) + + + + + | Component | Value | Ref Range | Performed At | + + + + + | VITAMIN B12 | 292Comment: Testing | 254 - 1,320 pg/mL | [facility] | | | performed at [facility], [address] | | LABORATORY | | | [facility], | | | | | [place] [address] | | | + + + + + + + | Specimen | + + | Blood | + + + + + + + | Performing | Address | City/State/Zipcode | Phone Number | | Organization | | | | + + + + + | [facility] | [address] | [place] [address] | [phone] | | LABORATORY | [address] | | | + + + + + Norm panel (10/25/2017 2:43 PM) + + + + + | Component | Value | Ref Range | Performed At | + + + + + | IRON | 27 (L) | 45 - 190 ug/dL | [facility] | | | | | LABORATORY | + + + + + | TIBC | 229 (L) | 250 - 450 ug/dL | [facility] | | | | | LABORATORY | + + + + + | IRON % SAT | 12 (L)Comment: Testing | 20 - 50 % | [facility] | | | performed at [facility], [address] | | LABORATORY | | | [address], | | | | | [place] [address] | | | + + + + + + + | Specimen | + + | Blood | + + + + + + + | Performing | Address | City/State/Zipcode | Phone Number | | Organization | | | | + + + + + | [facility] | [address] | [place] [address] | [phone] | | LABORATORY | [address] | | | + + + + + Comprehensive metabolic panel (10/25/2017 10:00 AM) + + + + + | Component | Value | Ref Range | Performed At | + + + + + | SODIUM | 139 | 135 - 145 mmol/L | [facility] | | | | | LABORATORY | + + + + + | POTASSIUM | 3.8 | 3.5 - 4.9 mmol/L | [facility] | | | | | LABORATORY | + + + + + | CHLORIDE | 105 | 99 - 109 mmol/L | [facility] | | | | | LABORATORY | + + + + + | CO2 | 24 | 23 - 32 mmol/L | [facility] | | | | | LABORATORY | + + + + + | ANION GAP AGAP | 14 | 5 - 20 mmol/L | [facility] | | | | | LABORATORY | + + + + + | GLUCOSE | 137 (H) | 65 - 99 mg/dL | [facility] | | | | | LABORATORY | + + + + + | BUN | 15 | 8 - 25 mg/dL | [facility] | | | | | LABORATORY | + + + + + | CREATININE | 1.2 | 0.70 - 1.30 mg/dL | [facility] | | | | | LABORATORY | + + + + + | BUN/CREAT | 13 | | [facility] | | | | | LABORATORY | + + + + + | CALCIUM | 8.4 (L) | 8.5 - 10.5 mg/dL | [facility] | | | | | LABORATORY | + + + + + | TOTAL PROTEIN | 5.5 (L) | 6.3 - 8.2 g/dL | [facility] | | | | | LABORATORY | + + + + + | Albumin | 2.4 (L) | 3.3 - 4.8 g/dL | [facility] | | | | | LABORATORY | + + + + + | GLOBULIN | 3.1 | 1.3 - 4.9 g/dL | [facility] | | | | | LABORATORY | + + + + + | A/G | 0.8 (L) | 1.0 - 2.4 | [facility] | | | | | LABORATORY | + + + + + | TBIL | 0.8 | 0.1 - 1.5 mg/dL | [facility] | | | | | LABORATORY | + + + + + | ALK PHOS | 87 | 35 - 115 U/L | [facility] | | | | | LABORATORY | + + + + + | AST | 20 | 10 - 45 U/L | [facility] | | | | | LABORATORY | + + + + + | ALT | 16 | 10 - 65 U/L | [facility] | | | | | LABORATORY | + + + + + | EGFR | 59 (L)Comment: GFR <60: | >60 mL/min/1.73m2 | [facility] | | | CHRONIC KIDNEY DISEASE, | | LABORATORY | | | IF FOUND OVER A 3 MONTH | | | | | PERIOD.GFR <15: KIDNEY | | | | | FAILURE.FOR | | | | | AMERICANS, MULTIPLY THE | | | | | CALCULATED GFR BY | | | | | 1.210.This eGFR is | | | | | calculated using the | | | | | MDRD IDMS traceable | | | | | equation.Testing | | | | | performed at [facility], [address] | | | | | [facility], | | | | | [place] [address] | | | + + + + + + + | Specimen | + + | Blood | + + + + + + + | Performing | Address | City/State/Zipcode | Phone Number | | Organization | | | | + + + + + | [facility] | [address] [facility] | [place] [address] | [phone] | | LABORATORY | [address]vd[address] | | | + + + + + CBC W/Auto Diff (Reflex to Manual) (10/25/2017 10:00 AM) + + + + + | Component | Value | Ref Range | Performed At | + + + + + | WBC | 7.51 | 3.80 - 11.00 K/uL | [facility] | | | | | LABORATORY | + + + + + | RBC | 3.63 (L) | 4.20 - 5.70 M/uL | [facility] | | | | | LABORATORY | + + + + + | HGB | 9.4 (L) | 13.2 - 17.0 g/dL | [facility] | | | | | LABORATORY | + + + + + | HCT | 27.9 (L) | 39.0 - 50.0 % | [facility] | | | | | LABORATORY | + + + + + | MCV | 77.0 (L) | 80.0 - 100.0 fl | [facility] | | | | | LABORATORY | + + + + + | MCH | 26.1 (L) | 27.0 - 34.0 pg | [facility] | | | | | LABORATORY | + + + + + | MCHC | 33.8 | 32.0 - 35.5 g/dL | [facility] | | | | | LABORATORY | + + + + + | RDW SD | 58.2 (H) | 37 - 53 fl | [facility] | | | | | LABORATORY | + + + + + | PLT | PLATELETS CLUMPED, | 150 - 400 K/uL | [facility] | | | APPEAR ADEQUATE | | LABORATORY | + + + + + | DIFF TYPE | AUTOMATED | | [facility] | | | | | LABORATORY | + + + + + | NEUTROPHILS | 82.55 | % | [facility] | | | | | LABORATORY | + + + + + | LYMPHOCYTES | 8.04 | % | [facility] | | | | | LABORATORY | + + + + + | MONOCYTES | 5.49 | % | [facility] | | | | | LABORATORY | + + + + + | EOSINOPHILS | 3.36 | % | [facility] | | | | | LABORATORY | + + + + + | BASOPHILS | 0.56 | % | [facility] | | | | | LABORATORY | + + + + + | NEUTROPHILS ABS | 6.20 | 1.90 - 7.40 K/uL | [facility] | | | | | LABORATORY | + + + + + | LYMPHOCYTES ABS | 0.60 (L) | 1.00 - 3.90 K/uL | [facility] | | | | | LABORATORY | + + + + + | MONOCYTES ABS | 0.41 | 0.00 - 0.80 K/uL | [facility] | | | | | LABORATORY | + + + + + | EOSINOPHILS ABS | 0.25 | 0.00 - 0.50 K/uL | [facility] | | | | | LABORATORY | + + + + + | BASOPHILS ABS | 0.04 | 0.00 - 0.10 K/uL | [facility] | | | | | LABORATORY | + + + + + | MORPHOLOGY | 2+Comment: | | [facility] | | | OVALO1+TEARDROP2+ANISONO | | LABORATORY | | | RMAL PLT MORPHTesting | | | | | performed at [facility], [address] | | | | | [facility], | | | | | [place] [address] | | | | |ANISO | | | | |NORMAL PLT MORPH | | | | |Testing performed at [facility], [facility] [place] [address] | | | | | | | | + + + + + + + | Specimen | + + | Blood | + + + + + + + | Performing | Address | City/State/Zipcode | Phone Number | | Organization | | | | + + + + + | [facility] | [address] | [place] [address] | [phone] | | LABORATORY | [address] | | | + + + + + CL guidance vascular access US (10/24/2017 8:12 PM) + + + | Narrative | Performed At | + + + | This Point of Care (POC) ultrasound image has been reviewed and | [facility] | | interpreted by the physician identified as the performing physician in | RADIOLOGY | | the associated interpretation and report. | | + + + + + + + + | Performing | Address | City/State/Zipcode | Phone Number | | Organization | | | | + + + + + | [facility] | [address] | [place] [address] | | + + + + + CL coronary angio with grafts (10/24/2017 8:09 PM) + + + | Narrative | Performed At | + + + | | [facility] | | | RADIOLOGY | | DATE OF : 1945. PROCEDURE: 1. Right femoral | | | access with ultrasound guidance. 2. Left heart catheterization. 3. | | | Coronary angiogram. 4. SVG angiogram to the RCA. 5. SVG angiogram to | | | the left circumflex. 6. GRIER to LAD angiogram. | | | INDICATION: This is a 72-year-old male who presented to the | | | hospital because of shortness of breath, pulmonary edema, and | | | elevation of cardiac enzymes. For further details, refer to my | | | consultation note. Given the above findings, left heart | | | catheterization was recommended. The patient had previous history | | | of CABG times 4 in 1995. PROCEDURE NOTE: The patient was | | | brought electively to the heart catheterization lab. Consent was | | | obtained after reviewing risks and benefits. Timeout was done at | | | the bedside. The patient was prepped in the usual sterile manner, | | | received IV fentanyl via independent observer. Right groin was | | | anesthetized with 1 percent lidocaine. Using ultrasound and a | | | micropuncture needle, right femoral access was obtained. A 5-Comoran | | | sheath was introduced without any difficulty. A 0.035 wire was | | | used and advanced under fluoroscopic guidance into the ascending | | | aorta. A 5-Comoran JL4 catheter was used and advanced over the wire | | | and placed selectively in the left coronary cusp. Wire was | | | removed. Catheter was flushed. Selectively engaged the left | | | coronary system. Contrast was injected. Multiple views were | | | obtained. Exchange over the wire was done with JR4 catheter that | | | was placed selectively in the right coronary cusp, selectively | | | engaged the right coronary artery, and multiple views were | | | obtained. Attempted to engage the SVG to RCA and the obtuse | | | marginal with the JR4 catheter; however, was unsuccessful. Then | | | JR4 catheter was used to cannulate the left subclavian artery and | | | then a long 0.035 wire was used to exchange with a GRIER catheter that | | | selectively engaged the GRIER graft and multiple views were | | | obtained. Exchange over the wire was done with a 5-Comoran | | | multipurpose catheter that selectively engaged the right SVG to RCA | | | graft. Multiple views were obtained. Exchange over the wire was | | | done with 5-Comoran AL1 catheter that selectively engaged the SVG to | | | left circumflex system graft. Multiple views were | | | obtained. Finally, the catheter was removed over the | | | wire. Hemostasis was achieved by TR band. CONTRAST USED: 100 | | | mL. BLOOD LOSS: Less than 10. COMPLICATIONS: None. | | | HEMOSTASIS: By manual pressure. ANGIOGRAPHIC FINDINGS: 1. Left | | | main is large caliber vessel with normal origin. Bifurcates to LAD | | | and left circumflex with mild diffuse disease. 2. LAD is 100 | | | percent proximally occluded. 3. Left circumflex is a small to | | | moderate vessel that is severely calcified, has multiple lesions and | | | diffusely diseased. Distally it is very small and severely | | | calcified. Has 90 percent proximal and subtotal occlusion | | | distal. However again smaller and severely calcified. No | | | competitive flow was seen. 4. RCA has 100 percent ostial occlusion. | | | 5. SVG to RCA is widely patent with mildly diffuse disease. 6. SVG to | | | left circumflex system is diffusely diseased with severe | | | degenerative disease; however, occluded at the insertion site. The | | | jump graft of the 2nd obtuse marginal is occluded. GRIER to LAD is | | | widely patent. CONCLUSION: 1. Severe 3-vessel coronary artery | | | disease. 2. Patent SVG to RCA and GRIER to LAD. 3. Occluded SVG to | | | the left circumflex system, which is a jump graft. 4. Severely | | | calcified left circumflex, which is small caliber severely calcified. | | | However, not amenable to any PCI. RECOMMENDATIONS: Given the | | | above findings, the patient will continue medical therapy for | | | coronary artery disease. Will be restarted on antiplatelet therapy | | | and will be on optimization of blood pressure control, statin | | | therapy, and will be re-started on anticoagulation for atrial | | | fibrillation. Further recommendations to follow. Read by | | | CECILIA MCCOY MD 10/24/2017 07:56 P | | + + + + + | Procedure Note | + + | Diogo Harris Results In - 10/25/2017 6:29 AM PDT | | | | | | DATE OF : 1945. | | | | PROCEDURE: | | 1. Right femoral access with ultrasound guidance. | | 2. Left heart catheterization. | | 3. Coronary angiogram. | | 4. SVG angiogram to the RCA. | | 5. SVG angiogram to the left circumflex. | | 6. GRIER to LAD angiogram. | | | | INDICATION: This is a 72-year-old male who presented to the hospital | | because of shortness of breath, pulmonary edema, and elevation of cardiac | | enzymes. For further details, refer to my consultation note. Given the | | above findings, left heart catheterization was recommended. The patient | | had previous history of CABG times 4 in 1995. | | | | PROCEDURE NOTE: The patient was brought electively to the heart | | catheterization lab. Consent was obtained after reviewing risks and | | benefits. Timeout was done at the bedside. The patient was prepped in the | | usual sterile manner, received IV fentanyl via independent observer. Right | | groin was anesthetized with 1 percent lidocaine. Using ultrasound and a | | micropuncture needle, right femoral access was obtained. A 5-Comoran sheath | | was introduced without any difficulty. A 0.035 wire was used and advanced | | under fluoroscopic guidance into the ascending aorta. A 5-Comoran JL4 | | catheter was used and advanced over the wire and placed selectively in the | | left coronary cusp. Wire was removed. Catheter was flushed. Selectively | | engaged the left coronary system. Contrast was injected. Multiple views | | were obtained. Exchange over the wire was done with JR4 catheter that was | | placed selectively in the right coronary cusp, selectively engaged the | | right coronary artery, and multiple views were obtained. Attempted to | | engage the SVG to RCA and the obtuse marginal with the JR4 catheter; | | however, was unsuccessful. Then JR4 catheter was used to cannulate the | | left subclavian artery and then a long 0.035 wire was used to exchange with | | a GRIER catheter that selectively engaged the GRIER graft and multiple views | | were obtained. Exchange over the wire was done with a 5-Comoran | | multipurpose catheter that selectively engaged the right SVG to RCA graft. | | Multiple views were obtained. Exchange over the wire was done with | | 5-Comoran AL1 catheter that selectively engaged the SVG to left circumflex | | system graft. Multiple views were obtained. Finally, the catheter was | | removed over the wire. Hemostasis was achieved by TR band. | | | | CONTRAST USED: 100 mL. | | | | BLOOD LOSS: Less than 10. | | | | COMPLICATIONS: None. | | | | HEMOSTASIS: By manual pressure. | | | | ANGIOGRAPHIC FINDINGS: | | 1. Left main is large caliber vessel with normal origin. Bifurcates to LAD | | and left circumflex with mild diffuse disease. | | 2. LAD is 100 percent proximally occluded. | | 3. Left circumflex is a small to moderate vessel that is severely | | calcified, has multiple lesions and diffusely diseased. Distally it is | | very small and severely calcified. Has 90 percent proximal and subtotal | | occlusion distal. However again smaller and severely calcified. No | | competitive flow was seen. | | 4. RCA has 100 percent ostial occlusion. | | 5. SVG to RCA is widely patent with mildly diffuse disease. | | 6. SVG to left circumflex system is diffusely diseased with severe | | degenerative disease; however, occluded at the insertion site. The jump | | graft of the 2nd obtuse marginal is occluded. GRIER to LAD is widely | | patent. | | | | CONCLUSION: | | 1. Severe 3-vessel coronary artery disease. | | 2. Patent SVG to RCA and GRIER to LAD. | | 3. Occluded SVG to the left circumflex system, which is a jump graft. | | 4. Severely calcified left circumflex, which is small caliber severely calcified. | | However, not amenable to any PCI. | | | | RECOMMENDATIONS: Given the above findings, the patient will continue | | medical therapy for coronary artery disease. Will be restarted on | | antiplatelet therapy and will be on optimization of blood pressure control, | | statin therapy, and will be re-started on anticoagulation for atrial | | fibrillation. Further recommendations to follow. | | | | Read by CECILIA MCCOY MD 10/24/2017 07:56 P | | | | | + + + + + + + | Performing | Address | City/State/Zipcode | Phone Number | | Organization | | | | + + + + + | [facility] | [address] | [place] [address] | | + + + + + X-ray swallowing function video (10/24/2017 4:50 PM) + + + | Narrative | [...] | + + + + + | [facility] | [address] | [place] [address] | | + + + + + CT chest without contrast (10/24/2017 11:22 AM) + + + | Impressions | Performed At | + + + | 1. At the very least there is pulmonary vascular congestion, | [facility] | | edema-and centrilobular emphysema is superimposed 2. Pulmonary | RADIOLOGY | | infiltrates are asymmetric and throughout the left hemithorax. This | | | could be due to superimposed infection of the left upper lung and | | | there is a small effusion also 3. Lastly, there are inflammatory | | | appearing airspace or infiltrative nodules superimposed throughout | | | Will be important to repeat this examination when the patient's acute | | | issues are resolved to evaluate for underlying lesion/mass | | | | | + + + + + + | Narrative | Performed At | + + + | HISTORY: 72 years year-old Male, hemoptysis. TECHNIQUE: CT | [facility] | | through the chest. Noncontrast examination. Automatic dose adjustment | RADIOLOGY | | to minimize patient exposure. PRIOR EXAMINATION: Earlier chest | | | radiograph. FINDINGS: [employer] demonstrates cardiomegaly, sternal | | | wires and dense reticular interstitial lung disease throughout the | | | left mid chest. Lung windows demonstrate bilateral reticular and | | | confluent infiltrates throughout mid lower lung pack. In the | | | posterior medial left lung on image 81 series 3 in underlying mass | | | would be difficult to exclude, but this is simply a larger multiple | | | similar findings throughout both lungs. Inflammatory nodules and/or | | | inflammatory masses are very plausibly superimposed In the mid | | | central superior left lung the lung disease is more cystic in | | | appearance, asymmetric centrilobular emphysema/COPD and superimposed | | | edema edema Bone windows demonstrate degenerative and | | | postprocedural changes, without acute appearing lesion or active | | | fracture. The sternotomy is healed. Nonaggressive and degenerative | | | changes not uncommon for age. What is seen of the upper abdomen | | | demonstrates fatty liver. Splenomegaly. No adenopathy or fluid | | | collection discernible. Large hiatus hernia. Within the chest | | | dense coronary calcification, interventional changes, diffuse cardiac | | | megaly and hilar vascular congestion symmetrically distributed in | | | midlung pack. Changes post CABG. | | + + + + + | Procedure Note | + + | Steven, Rad Results In - 10/24/2017 12:06 PM PDT HISTORY: 72 years year-old Male, | | hemoptysis.TECHNIQUE: CT through the chest. Noncontrast examination. 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 In the | | posterior medial left lung on image 81 series 3 in underlying mass would be difficult to | | exclude, but this is simply a larger multiple similar findings throughout both lungs. | | Inflammatory nodules and/or inflammatory masses are very plausibly superimposedIn the | | mid central superior left lung the lung disease is more cystic in appearance, asymmetric | | centrilobular emphysema/COPD and superimposed edema edemaBone windows demonstrate | | degenerative and postprocedural changes, without acute appearing lesion or active | | fracture. The sternotomy is healed. Nonaggressive and degenerative changes not uncommon | | for age.What is seen of the upper abdomen demonstrates fatty liver. Splenomegaly. No | | adenopathy or fluid collection discernible. Large hiatus hernia.Within the chest dense | | coronary calcification, interventional changes, diffuse cardiac megaly and hilar | | vascular congestion symmetrically distributed in midlung pack. Changes post | | CABG.IMPRESSION:1. At the very least there is pulmonary vascular congestion, edema-and | | centrilobular emphysema is superimposed2. Pulmonary infiltrates are asymmetric and | | throughout the left hemithorax. This could be due to superimposed infection of the left | | upper lung and there is a small effusion also3. Lastly, there are inflammatory appearing | | airspace or infiltrative nodules superimposed throughoutWill be important to repeat | | this examination when the patient's acute issues are resolved to evaluate for underlying | | lesion/mass | | | |2. Pulmonary infiltrates are asymmetric and throughout the left hemithorax. This could be d ue to superimposed infection of the left upper lung and there is a small effusion also | | | |3. Lastly, there are inflammatory appearing airspace or infiltrative nodules superimposed t hroughout | | | |Will be important to repeat this examination when the patient's acute issues are resolved t o evaluate for underlying lesion/mass | | | | | + + + + + + + | Performing | Address | City/State/Zipcode | Phone Number | | Organization | | | | + + + + + | [facility] | [address] | [place] [address] | | + + + + + XR chest 2 view (10/24/2017 11:03 AM) + + + | Impressions | Performed At | + + + | 1. Borderline cardiac enlargement, with probable pulmonary edema. | [facility] | | Atypical pneumonitis seems less likely. | | + + + + + + | Narrative | Performed At | + + + | HISTORY: Precordial chest pain. Question pneumonia. COMPARISON: | [facility] | | 10/23/17. TECHNIQUE: PA and lateral films of the chest. | RAD[facility]OLOGY | | FINDINGS: Median sternotomy. Heart size is upper normal. Pulmonary | | | venous congestion. Bilateral perihilar mixed interstitial and airspace | | | infiltrates again noted, essentially unchanged. No effusions. Subtle | | | thickening of the major and minor fissures. Mild degenerative changes | | | of the spine. Osteopenia. | | + + + + + | Procedure Note | + + | Steven, Rad Results In - 10/24/2017 11:39 AM PDT HISTORY:Precordial chest pain. Question | | pneumonia.COMPARISON:10/23/17.TECHNIQUE:PA and lateral films of the | | chest.FINDINGS:Median sternotomy. Heart size is upper normal. Pulmonary venous | | congestion. Bilateral perihilar mixed interstitial and airspace infiltrates again noted, | | essentially unchanged. No effusions. Subtle thickening of the major and minor fissures. | | Mild degenerative changes of the spine. Osteopenia.IMPRESSION:1. Borderline cardiac | | enlargement, with probable pulmonary edema. Atypical pneumonitis seems less | | likely. | | | |FINDINGS: | |Median sternotomy. Heart size is upper normal. Pulmonary venous congestion. Bilateral perih ilar mixed interstitial and airspace infiltrates again noted, essentially unchanged. No effu sions. Subtle | |thickening of the major and minor fissures. Mild degenerative changes of the spine. Osteope izaiah. | | | |IMPRESSION: | |1. Borderline cardiac enlargement, with probable pulmonary edema. Atypical pneumonitis see ms less likely. | | | | | + + + + + + + | Performing | Address | City/State/Zipcode | Phone Number | | Organization | | | | + + + + + | [facility] | [address] | [facility] [place] [address] | | + + + + + Echo cardiac adult complete (10/24/2017 7:00 AM) + +-------+ + + | Component | Value | Ref Range | Performed At | + +-------+ + + | LV EF | 55 | 50 - 70 % | [facility] | | | | | RADIOLOGY | + +-------+ + + + + + | Impressions | Performed At | + + + | 1. The left ventricle cavity is normal in size, mild concentric | [facility] | | hypertrophy and normal systolic function EF 55%. Mild inferior and | RADIOLOGY | | inferolateral hypokinetic segments. 2. Mild degenerative changes in | | | the aortic and mitral valves. 3. There is no pericardial effusion. | | + + + + + + | Narrative | Performed At | + + + | Patient Name: PAVITHRA ROSE Date of : 1945 | [facility] | | Performing Physician: Cecilia Mccoy | RADIOLOGY | | | | | INDICATIONS sob,h/o 4 cabg CONCLUSIONS | | | 1. The left ventricle cavity is normal in size, mild concentric | | | hypertrophy and normal systolic function EF 55%. Mild inferior and | | | inferolateral hypokinetic segments. 2. Mild degenerative changes in | | | the aortic and mitral valves. 3. There is no pericardial effusion. | | | FINDINGS -------- ECG rhythm: Atrial fibrillation. Study: A | | | 2-dimensional transthoracic echocardiogram with m-mode, spectral and | | | color flow Doppler was perfomed. Study: This was a technically | | | adequate study. Left Ventricle: Overall left ventricular systolic | | | function is low-normal with, an EF 55 %. Left Ventricle: The left | | | ventricle cavity size is normal. Left Ventricle: There is mild | | | concentric left ventricular hypertrophy. Right Ventricle: The RV was | | | not well visualized. Left Atrium: The left atrium is mildly dilated. | | | Right Atrium: The right atrial size is normal. Aortic Valve: The | | | aortic valve is trileaflet. Aortic Valve: The aortic valve is mildly | | | calcified. Aortic Valve: There is mild aortic regurgitation. | | | Mitral Valve: There is trace mitral regurgitation. Mitral Valve: | | | Mild mitral annular calcification present. Tricuspid Valve: The | | | tricuspid valve appears structurally normal. Tricuspid Valve: Trace | | | tricuspid regurgitation present. Tricuspid Valve: There is no | | | evidence of pulmonary hypertension. Pulmonic Valve: The pulmonic | | | valve is normal. Pulmonic Valve: Mild pulmonic regurgitation. | | | Pulmonic Valve: Mild degenerative changes in the aortic and mitral | | | valves. Pericardium: There is no pericardial effusion. | | | Pericardium: No pleural effusion seen. IVC/Hepatic Veins: The | | | inferior vena cava is normal in size and collapses > 50 % with sniff, | | | indicating normal central venous pressures. MEASUREMENTS | | | Ao asc: 4.19 cm Ao sinus: 3.[address] | | | junct: 3.01 cm IVC: 1.42 cm LA Diam: 5.50 cm LA | | | Major: 5.97 cm EDV(Teich): 106.74 ml IVSd: 1.19 cm | | | LVIDd: 4.78 cm LVPWd: 1.21 cm LVOT Diam: 2.25 cm | | | %FS: 26.84 % EF(Teich): 52.32 % ESV(Teich): 50.89 ml | | | IVSs: 1.81 cm LVIDs: 3.50 cm LVPWs: 1.71 cm | | | SV(Teich): 55.85 ml RA Major: 5.04 cm LVEF MOD A4C: | | | 55.16 % SV MOD A4C: 49.58 ml LVEDV MOD A4C: 89.88 ml LVLd | | | A4C: 7.50 cm LVESV MOD A4C: 40.30 ml LVLs A4C: 5.87 cm | | | LAESV(A-L): 76.74 ml LAESV Index (A-L): 41.48 ml/m2 LAAs | | | A2C: 17.05 cm2 LAESV A-L A2C: 48.56 ml LALs A2C: 5.08 cm | | | LAAs A4C: 26.95 cm2 LAESV A-L A4C: 95.07 ml LALs A4C: | | | 6.48 cm Ao Diam: 4.03 cm AV Cusp: 1.91 cm LA Diam: 4.92 | | | cm LA/Ao: 1.22 D-E Excursion: 2.29 cm E-F Fergus: 0.09 | | | m/s AV maxP.18 mmHg AV meanP.51 mmHg AV Vmax: | | | 1.59 m/s AV Vmean: 1.23 m/s AV VTI: 28.06 cm FRANKY Vmax: | | | 3.26 cm2 FRANKY (VTI): 3.35 cm2 AVAI Vmax: 0.00 cm2/m2 AVAI | | | (VTI): 0.00 cm2/m2 LVOT maxP.86 mmHg LVOT meanPG: | | | 3.16 mmHg LVSI Dopp: 50.95 ml/m2 LVSV Dopp: 94.27 ml LVOT | | | Vmax: 1.31 m/s LVOT Vmean: 0.84 m/s LVOT VTI: 23.69 cm | | | MV E Ed: 0.93 m/s E' Lat: 0.12 m/s E' Sept: 0.06 m/s | | | PRend P.85 mmHg PRend Vmax: 1.48 m/s HR: 77.27 BPM | | | PV maxP.37 mmHg PV meanP.56 mmHg PV Vmax: 0.91 | | | m/s PV Vmean: 0.56 m/s PV VTI: 12.48 cm RV S': 0.08 m/s | | | TR maxP.05 mmHg TR Vmax: 3.04 m/s TV A Ed: 0.00 | | | m/s TV Dec Fergus: 3.93 m/s2 TV Dec Time: 207.73 ms TV E | | | Ed: 0.56 m/s TV E/A Ratio: 69.55 Pulp Grinder: CM | | | Authenticated by: Cecilia [facility] Report Date/Time: 10-24-2017 13:7:33 | | | | | + + + + + | Procedure Note | + + | Diogo Harris Results In - 10/24/2017 1:10 PM PDT Patient Name: Raegan ROSE of : | | 1945ccession: [id number] Physician: Cecilia | | Alsamara INDICATIONS------ | | -----sob,h/o 4 cabgCONCLUSIONS 1. The left ventricle cavity is normal in size, | | mild concentric hypertrophy and normal systolic function EF 55%. Mild inferior and | | inferolateral hypokinetic segments. 2. Mild degenerative changes in the aortic and | | mitral valves. 3. There is no pericardial effusion.FINDINGS--------ECG rhythm: Atrial | | fibrillation.Study: A 2-dimensional transthoracic echocardiogram with m-mode, spectral | | and color flow Doppler was perfomed. Study: This was a technically adequate study.Left | | Ventricle: Overall left ventricular systolic function is low-normal with, an EF 55 %. | | Left Ventricle: The left ventricle cavity size is normal. Left Ventricle: There is mild | | concentric left ventricular hypertrophy.Right Ventricle: The RV was not well | | visualized.Left Atrium: The left atrium is mildly dilated.Right Atrium: The right atrial | | size is normal.Aortic Valve: The aortic valve is trileaflet. Aortic Valve: The aortic | | valve is mildly calcified. Aortic Valve: There is mild aortic regurgitation.Mitral | | Valve: There is trace mitral regurgitation. Mitral Valve: Mild mitral annular | | calcification present.Tricuspid Valve: The tricuspid valve appears structurally normal. | | Tricuspid Valve: Trace tricuspid regurgitation present. Tricuspid Valve: There is no | | evidence of pulmonary hypertension.Pulmonic Valve: The pulmonic valve is normal. | | Pulmonic Valve: Mild pulmonic regurgitation. Pulmonic Valve: Mild degenerative changes | | in the aortic and mitral valves. Pericardium: There is no pericardial effusion. | | Pericardium: No pleural effusion seen.IVC/Hepatic Veins: The inferior vena cava is | | normal in size and collapses > 50 % with sniff, indicating normal central venous | | pressures.MEASUREMENTS Ao asc: 4.19 cmAo sinus: 3.[address] junct: | | 3.01 cmIVC: 1.42 cmLA Diam: 5.50 cmLA Major: 5.97 cmEDV(Teich): 106.74 mlIVSd: | | 1.19 cmLVIDd: 4.78 cmLVPWd: 1.21 cmLVOT Diam: 2.25 cm%FS: 26.84 %EF(Teich): | | 52.32 %ESV(Teich): 50.89 mlIVSs: 1.81 cmLVIDs: 3.50 cmLVPWs: 1.71 cmSV(Teich): | | 55.85 mlRA Major: 5.04 cmLVEF MOD A4C: 55.16 %SV MOD A4C: 49.58 mlLVEDV MOD A4C: | | 89.88 mlLVLd A4C: 7.50 cmLVESV MOD A4C: 40.30 mlLVLs A4C: 5.87 cmLAESV(A-L): | | 76.74 mlLAESV Index (A-L): 41.48 ml/m2LAAs A2C: 17.05 [id number] A-L A2C: 48.56 | | mlLALs A2C: 5.08 cmLAAs A4C: 26.95 [id number] A-L A4C: 95.07 mlLALs A4C: 6.48 cmAo | | Diam: 4.03 cmAV Cusp: 1.91 cmLA Diam: 4.92 cmLA/Ao: 1.22 D-E Excursion: 2.29 | | cmE-F Fergus: 0.09 m/Leigha maxP.18 mmHgAV meanP.51 mmHgAV Vmax: 1.59 m/Leigha | | Vmean: 1.23 m/Leigha VTI: 28.06 cmAVA Vmax: 3.26 cm2AVA (VTI): 3.35 [id number] Vmax: | | 0.00 cm2/m2AVAI (VTI): 0.00 cm2/m2LVOT maxP.86 mmHgLVOT meanP.16 | | mmHgLVSI Dopp: 50.95 ml/m2LVSV Dopp: 94.27 mlLVOT Vmax: 1.31 m/sLVOT Vmean: 0.84 | | m/sLVOT VTI: 23.69 cmMV E Ed: 0.93 m/sE' Lat: 0.12 m/sE' Sept: 0.06 m/sPRend | | P.85 mmHgPRend Vmax: 1.48 m/sHR: 77.27 BPMPV maxP.37 mmHgPV meanPG: | | 1.56 mmHgPV Vmax: 0.91 m/sPV Vmean: 0.56 m/sPV VTI: 12.48 cmRV S': 0.08 m/sTR | | maxP.05 mmHgTR Vmax: 3.04 m/sTV A Ed: 0.00 m/sTV Dec Fergus: 3.93 m/s2TV | | Dec Time: 207.73 msTV E Ed: 0.56 m/sTV E/A Ratio: 69.55 Pulp Grinder: | | CMAuthenticated by: Cecilia [facility] CenterReport Date/Time: 10-24-2017 13:7:33IMPRESSION:1. The | | left ventricle cavity is normal in size, mild concentric hypertrophy and normal | | systolic function EF 55%. Mild inferior and inferolateral hypokinetic segments. 2. Mild | | degenerative changes in the aortic and mitral valves. 3. There is no pericardial | | effusion. | |Ao asc: 4.19 cm | |Ao sinus: 3.71 cm | |Ao st junct: 3.01 cm | |IVC: 1.42 cm | |LA Diam: 5.50 cm | |LA Major: 5.97 cm | |EDV(Teich): 106.74 ml | |IVSd: 1.19 cm | |LVIDd: 4.78 cm | |LVPWd: 1.21 cm | |LVOT Diam: 2.25 cm | |%FS: 26.84 % | |EF(Teich): 52.32 % | |ESV(Teich): 50.89 ml | |IVSs: 1.81 cm | |LVIDs: 3.50 cm | |LVPWs: 1.71 cm | |SV(Teich): 55.85 ml | |RA Major: 5.04 cm | |LVEF MOD A4C: 55.16 % | |SV MOD A4C: 49.58 ml | |LVEDV MOD A4C: 89.88 ml | |LVLd A4C: 7.50 cm | |LVESV MOD A4C: 40.30 ml | |LVLs A4C: 5.87 cm | |LAESV(A-L): 76.74 ml | |LAESV Index (A-L): 41.48 ml/m2 | |LAAs A2C: 17.05 cm2 | |LAESV A-L A2C: 48.56 ml | |LALs A2C: 5.08 cm | |LAAs A4C: 26.95 cm2 | |LAESV A-L A4C: 95.07 ml | |LALs A4C: 6.48 cm | |Ao Diam: 4.03 cm | |AV Cusp: 1.91 cm | |LA Diam: 4.92 cm | |LA/Ao: 1.22 | |D-E Excursion: 2.29 cm | |E-F Fergus: 0.09 m/s | |AV maxP.18 mmHg | |AV meanP.51 mmHg | |AV Vmax: 1.59 m/s | |AV Vmean: 1.23 m/s | |AV VTI: 28.06 cm | |FRANKY Vmax: 3.26 cm2 | |FRANKY (VTI): 3.35 cm2 | |AVAI Vmax: 0.00 cm2/m2 | |AVAI (VTI): 0.00 cm2/m2 | |LVOT maxP.86 mmHg | |LVOT meanP.16 mmHg | |LVSI Dopp: 50.95 ml/m2 | |LVSV Dopp: 94.27 ml | |LVOT Vmax: 1.31 m/s | |LVOT Vmean: 0.84 m/s | |LVOT VTI: 23.69 cm | |MV E Ed: 0.93 m/s | |E' Lat: 0.12 m/s | |E' Sept: 0.06 m/s | |PRend P.85 mmHg | |PRend Vmax: 1.48 m/s | |HR: 77.27 BPM | |PV maxP.37 mmHg | |PV meanP.56 mmHg | |PV Vmax: 0.91 m/s | |PV Vmean: 0.56 m/s | |PV VTI: 12.48 cm | |RV S': 0.08 m/s | |TR maxP.05 mmHg | |TR Vmax: 3.04 m/s | |TV A Ed: 0.00 m/s | |TV Dec Fergus: 3.93 m/s2 | |TV Dec Time: 207.73 ms | |TV E Ed: 0.56 m/s | |TV E/A Ratio: 69.55 | | | |Pulp Grinder: CM | |Authenticated by: Cecilia Mccoy | |Report Date/Time: 10-24-2017 13:7:33 | | | |IMPRESSION: | |1. The left ventricle cavity is normal in size, mild concentric hypertrophy and normal sys tolic function EF 55%. Mild inferior and inferolateral hypokinetic segments. | |2. Mild degenerative changes in the aortic and mitral valves. | |3. There is no pericardial effusion. | + + + + + + + | Performing | Address | City/State/Zipcode | Phone Number | | Organization | | | | + + + + + | [facility] | [address] | [place] [address] | | + + + + + EKG STANDARD 12 LEAD (10/24/2017 6:28 AM) + + + + + | Component | Value | Ref Range | Performed At | + + + + + | Ventricular Rate | 73 | BPM | [facility] | + + + + + | Atrial Rate | 43 | BPM | [facility] | + + + + + | QRS Duration | 124 | ms | [facility] | + + + + + | Q-T Interval | 410 | ms | [facility] | + + + + + | QTC Calculation | 451 | ms | [facility] | | (Bezet) | | | | + + + + + | Calculated R [place] | -81 | degrees | [facility] | + + + + + | Calculated T [place] | 5 | degrees | [facility] | + + + + + | Diagnosis | Atrial fibrillationRight | | [facility] | | | bundle branch blockLeft | | | | | anterior fascicular | | | | | block Bifascicular | | | | | block Abnormal | | | | | ECGWhen compared with | | | | | ECG of 07-OCT-2017 | | | | | 13:13,No significant | | | | | change was | | | | | foundConfirmed by IVAN | | | | | MARCELO MARTÍNEZ ([id number]) on | | | | | 10/24/2017 1:15:34 PM | | | + + + + + + + + + + | Performing | Address | City/State/Zipcode | Phone Number | | Organization | | | | + + + + + | [facility] | [address] | [place] [address] | | + + + + + Troponin I (10/24/2017 5:51 AM) + + + + + | Component | Value | Ref Range | Performed At | + + + + + | TROPONIN I | 1.28 ()Comment: 0.00 | 0.00 - 0.10 ng/mL | [facility] | | | to 0.10 CONSISTENT | | | | | WITH NORMAL | | | | | POPULATION0.11 to | | | | | 0.60 CONSISTENT WITH | | | | | INCREASED RISK FOR | | | | | ADVERSE OUTCOMES> | | | | | 0.60 | | | | | CONSISTENT WITH WHO | | | | | CRITERIA FOR ACUTE AR | | | | | CALLED NURSING UNITREAD | | | | | BACK RESULTS | | | | | VERIFIEDFABRICIO Lynch IN 8RP | | | | | AT 0658 BY TDTesting | | | | | performed at [facility];[address];[place], [place] | | | | | [address] | | | + + + + + + + | Specimen | + + | Blood | + + + + + + + | Performing | Address | City/State/Zipcode | Phone Number | | Organization | | | | + + + + + | [facility] | [address] | [place] [address] | | + + + + + Sputum culture (10/24/2017 4:00 AM) + + + + + | Component | Value | Ref Range | Performed At | + + + + + | Specimen Description | SPUTUM | | [facility] | | | | | LABORATORY | + + + + + | GRAM STAIN | GREATER THAN 10 WBCS/LPF | | [facility] | | | | | LABORATORY | + + + + + | GRAM STAIN | GREATER THAN 10 SEC/LPF | | [facility] | | | | | LABORATORY | + + + + + | GRAM STAIN | 4+ | | [facility] | | | | | LABORATORY | + + + + + | GRAM STAIN | GRAM POSITIVE COCCI | | [facility] | | | | | LABORATORY | + + + + + | GRAM STAIN | 1+ | | [facility] | | | | | LABORATORY | + + + + + | GRAM STAIN | GRAM NEGATIVE RODS | | [facility] | | | | | LABORATORY | + + + + + | GRAM STAIN | 3+ | | [facility] | | | | | LABORATORY | + + + + + | GRAM STAIN | GRAM POSITIVE RODS | | [facility] | | | | | LABORATORY | + + + + + | GRAM STAIN | 2+ | | [facility] | | | | | LABORATORY | + + + + + | GRAM STAIN | YEAST | | [facility] | | | | | LABORATORY | + + + + + | CULTURE | SMEAR CONTAINS GREATER | | [facility] | | | THAN 10 SEC/LPF | | LABORATORY | | | SUGGESTIVE OF POOR | | | | | QUALITY SPECIMEN. | | | | | SPECIMEN WILL NOT BE | | | | | CULTURED OR WILL BE | | | | | CULTURED BY SPECIAL | | | | | REQUEST ONLY. PLEASE | | | | | RECOLLECT IF CLINICALLY | | | | | INDICATED. SPECIMEN | | | | | WILL BE HELD 48 HOURS. | | | + + + + + + + | Specimen | + + | Sputum - Sputum | + + + + + + + | Performing | Address | City/State/Zipcode | Phone Number | | Organization | | | | + + + + + | [facility] | [address] | [place] [address] | [phone] | | LABORATORY | [address] | | | + + + + + Protime-INR (10/24/2017 1:57 AM) + + + + + | Component | Value | Ref Range | Performed At | + + + + + | INR | 1.2Comment: REFERENCE | | [facility] | | | RANGE:0.9 - | | | | | 1.2 NON-ANTICOAGULATE | | | | | D2.0 - 3.0 ALL OTHER | | | | | THERAPEUTIC | | | | | INDICATIONS2.5 - 3.5 | | | | | MECHANICAL HEART VALVES, | | | | | RECURRENT OR SYSTEMIC | | | | | EMBOLISMTesting | | | | | performed at [facility];[address] | [address] | [address];[place] | | | | | [address] | | | + + + + + + + | Specimen | + + | Blood | + + + + + + + | Performing | Address | City/State/Zipcode | Phone Number | | Organization | | | | + + + + + | [facility] | [address] | [place] [address] | | + + + + + Troponin I (10/24/2017 1:57 AM) + + + + + | Component | Value | Ref Range | Performed At | + + + + + | TROPONIN I | 1.72 ()Comment: 0.00 | 0.00 - 0.10 ng/mL | [facility] | | | to 0.10 CONSISTENT | | | | | WITH NORMAL | | | | | POPULATION0.11 to | | | | | 0.60 CONSISTENT WITH | | | | | INCREASED RISK FOR | | | | | ADVERSE OUTCOMES> | | | | | 0.60 | | | | | CONSISTENT WITH WHO | | | | | CRITERIA FOR ACUTE AR | | | | | CALLED NURSING UNITREAD | | | | | BACK RESULTS | | | | | REENA Rodríguez IN 8RP | | | | | AT [address]Testing performed | | | | | at [facility];[address] | | | | | [facility];[place] [address] | | | + + + + + + + | Specimen | + + | Blood | + + + + + + + | Performing | Address | City/State/Zipcode | Phone Number | | Organization | | | | + + + + + | [facility] | [address] | [facility] [place] [address] | | + + + + + TSH (10/24/2017 1:57 AM) + + + + + | Component | Value | Ref Range | Performed At | + + + + + | TSH | 4.150Comment: Testing | 0.450 - 5.100 uIU/mL | [facility] | | | performed at [facility], [address] | | LABORATORY | | | [address], | | | | | [place] [address] | | | + + + + + + + | Specimen | + + | Blood | + + + + + + + | Performing | Address | City/State/Zipcode | Phone Number | | Organization | | | | + + + + + | [facility] | [address] | [place] [address] | [phone] | | LABORATORY | [address] | | | + + + + + Lipid panel (10/24/2017 1:57 AM) + + + + + | Component | Value | Ref Range | Performed At | + + + + + | CHOLESTEROL | 103 | <200 mg/dL | [facility] | | | | | LABORATORY | + + + + + | Triglycerides | 116 | <150 mg/dL | [facility] | | | | | LABORATORY | + + + + + | HDL CHOL | 24 (L) | >40 mg/dL | [facility] | | | | | LABORATORY | + + + + + | LDL CALC | 56Comment: Testing | <100 mg/dL | [facility] | | | performed at [facility], [address] | | LABORATORY | | | [address], | | | | | [place] [address] | | | + + + + + + + | Specimen | + + | Blood | + + + + + + + | Performing | Address | City/State/Zipcode | Phone Number | | Organization | | | | + + + + + | [facility] | [address] | [place] [address] | [phone] | | LABORATORY | [address] | | | + + + + + Phosphorus (10/24/2017 1:57 AM) + + + + + | Component | Value | Ref Range | Performed At | + + + + + | PHOSPHORUS | 3.4Comment: Testing | 2.3 - 4.8 mg/dL | [facility] | | | performed at [facility], [address] | | LABORATORY | | | [facility] | | | | | [place] [address] | | | + + + + + + + | Specimen | + + | Blood | + + + + + + + | Performing | Address | City/State/Zipcode | Phone Number | | Organization | | | | + + + + + | [facility] | [address] | [place] [address] | [phone] | | LABORATORY | [address] | | | + + + + + Magnesium (10/24/2017 1:57 AM) + + + + + | Component | Value | Ref Range | Performed At | + + + + + | MAGNESIUM | 1.8Comment: Testing | 1.7 - 2.4 mg/dL | [facility] | | | performed at [facility], [address] | | LABORATORY | | | [address], | | | | | [place] [address] | | | + + + + + + + | Specimen | + + | Blood | + + + + + + + | Performing | Address | City/State/Zipcode | Phone Number | | Organization | | | | + + + + + | [facility] | [address] | [place] [address] | [phone] | | LABORATORY | [address] | | | + + + + + Basic metabolic panel (10/24/2017 1:57 AM) + + + + + | Component | Value | Ref Range | Performed At | + + + + + | SODIUM | 138 | 135 - 145 mmol/L | [facility] | | | | | LABORATORY | + + + + + | POTASSIUM | 4.3 | 3.5 - 4.9 mmol/L | [facility] | | | | | LABORATORY | + + + + + | CHLORIDE | 104 | 99 - 109 mmol/L | [facility] | | | | | LABORATORY | + + + + + | CO2 | 24 | 23 - 32 mmol/L | [facility] | | | | | LABORATORY | + + + + + | ANION GAP AGAP | 14 | 5 - 20 mmol/L | [facility] | | | | | LABORATORY | + + + + + | GLUCOSE | 75 | 65 - 99 mg/dL | [facility] | | | | | LABORATORY | + + + + + | BUN | 14 | 8 - 25 mg/dL | [facility] | | | | | LABORATORY | + + + + + | CREATININE | 1.3 | 0.70 - 1.30 mg/dL | [facility] | | | | | LABORATORY | + + + + + | BUN/CREAT | 11 | | [facility] | | | | | LABORATORY | + + + + + | CALCIUM | 8.6 | 8.5 - 10.5 mg/dL | [facility] | | | | | LABORATORY | + + + + + | EGFR | 54 (L)Comment: GFR <60: | >60 mL/min/1.73m2 | [facility] | | | CHRONIC KIDNEY DISEASE, | | LABORATORY | | | IF FOUND OVER A 3 MONTH | | | | | PERIOD.GFR <15: KIDNEY | | | | | FAILURE.FOR | | | | | AMERICANS, MULTIPLY THE | | | | | CALCULATED GFR BY | | | | | 1.210.This eGFR is | | | | | calculated using the | | | | | MDRD IDMS traceable | | | | | equation.Testing | | | | | performed at [facility], [address] | | | | | [facility], | | | | | [place] [address] | | | + + + + + + + | Specimen | + + | Blood | + + + + + + + | Performing | Address | City/State/Zipcode | Phone Number | | Organization | | | | + + + + + | [facility] | [address] | [place] [address] | [phone] | | LABORATORY | [address] | | | + + + + + CBC W/Auto Diff (Reflex to Manual) (10/24/2017 1:57 AM) + + -----+ + + | Component | Value | Ref Range | Performed At | + + -----+ + + | WBC | 11.05 (H) | 3.80 - 11.00 K/uL | [facility] | | | | | LABORATORY | + + -----+ + + | RBC | 4.56 | 4.20 - 5.70 M/uL | [facility] | | | | | LABORATORY | + + -----+ + + | HGB | 11.5 (L) | 13.2 - 17.0 g/dL | [facility] | | | | | LABORATORY | + + -----+ + + | HCT | 35.3 (L) | 39.0 - 50.0 % | [facility] | | | | | LABORATORY | + + -----+ + + | MCV | 77.5 (L) | 80.0 - 100.0 fl | [facility] | | | | | LABORATORY | + + -----+ + + | MCH | 25.1 (L) | 27.0 - 34.0 pg | [facility] | | | | | LABORATORY | + + -----+ + + | MCHC | 32.4 | 32.0 - 35.5 g/dL | [facility] | | | | | LABORATORY | + + -----+ + + | RDW SD | 57.3 (H) | 37 - 53 fl | [facility] | | | | | LABORATORY | + + -----+ + + | PLT | 160 | 150 - 400 K/uL | [facility] | | | | | [facility] | + + -----+ + + | MPV | 10.1 | fl | [facility] | | | | | [facility] | + + -----+ + + | DIFF TYPE | MANUAL | | [facility] | + + -----+ + + | Neutrophils Manual | 85 | % | [facility] | | | | | [facility] | + + -----+ + + | Lymphocytes Manual | 8 | % | [facility] | | | | | [facility] | + + -----+ + + | Monocytes Manual | 6 | % | [facility] | | | | | [facility] | + + -----+ + + | Eosinophils Manual | 1 | % | [facility] | | | | | [facility] | + + -----+ + + | Neutrophils Absolute | 9.40 (H) | 1.90 - 7.40 K/uL | [facility] | | | | | [facility] | + + -----+ + + | Lymphocytes Absolute | 0.88 (L) | 1.00 - 3.90 K/uL | [facility] | | | | | [facility] | + + -----+ + + | Monocytes Absolute | 0.66 | 0.00 - 0.80 K/uL | [facility] | | | | | [facility] | + + -----+ + + | Eosinophils Absolute | 0.11 | 0.00 - 0.50 K/uL | [facility] | | | | | [facility] | + + -----+ + + | Platelet Estimate | ADEQUATE | | [facility] | | | | | [facility] | + + -----+ + + | MORPHOLOGY | 2+Comment: | | [facility] | | | ANISO2+OVALO1+TEARDROPNO | | LABORATORY | | | RMAL PLT MORPHTesting | | | | | performed at [facility], [address], | | | | | [place] [address] | | | | |TEARDROP | | | | |NORMAL PLT MORPH | | | | |Testing performed at [facility], [address] [facility], [place], [place] [address] | | | | | | | | + + -----+ + + + + | Specimen | + + | Blood | + + + + + + + | Performing | Address | City/State/Zipcode | Phone Number | | Organization | | | | + + + + + | [facility] | [address] [place] [address] | [place] [address] | [phone] | | LABORATORY | vd. | | | + + + + + Septic Lactic Acid (10/23/2017 11:50 PM) + + + + + | Component | Value | Ref Range | Performed At | + + + + + | LACTIC ACID | 1.1Comment: Testing | 0.4 - 2.0 mmol/L | [facility] | | | performed at [facility];[id number] | | | | | [address];[place] | | | | | [address] | | | + + + + + + + + + + | Performing | Address | City/State/Zipcode | Phone Number | | Organization | | | | + + + + + | [facility] | [address] | [place] [address] | | + + + + + Troponin I (10/23/2017 10:12 PM) + + + + + | Component | Value | Ref Range | Performed At | + + + + + | TROPONIN I | 1.76 ()Comment: 0.00 | 0.00 - 0.10 ng/mL | [facility] | | | to 0.10 CONSISTENT | | | | | WITH NORMAL | | | | | POPULATION0.11 to | | | | | 0.60 CONSISTENT WITH | | | | | INCREASED RISK FOR | | | | | ADVERSE OUTCOMES> | | | | | 0.60 | | | | | CONSISTENT WITH WHO | | | | | CRITERIA FOR ACUTE AR | | | | | CALLED TO KIMBERLEE Rodríguez ON | | | | | 8RP AT [phone] BY [address], READ | | | | | BACKTesting performed at | | | | | [facility];[address] | | | | | [facility];[place] [address] | | | + + + + + + + | Specimen | + + | Blood | + + + + + + + | Performing | Address | City/State/Zipcode | Phone Number | | Organization | | | | + + + + + | [facility] | [address] | [place] [address] | | + + + + + in this encounter Visit Diagnoses + + | Diagnosis | + + | NSTEMI (non-ST elevated myocardial infarction) (HCC) - Primary | + + | Acute myocardial infarction, subendocardial infarction, episode of care unspecified | + + | Thoracic aortic aneurysm without rupture (HCC) | + + | Thoracic aneurysm without mention of rupture | + + | ASCVD (arteriosclerotic cardiovascular disease) | + + | Unspecified cardiovascular disease | + + | Chronic atrial fibrillation (HCC) | + + | Atrial fibrillation | + + | Essential hypertension | + + | Unspecified essential hypertension | + + | Precordial pain | + + | Dysphagia, unspecified type | + + | Aortic aneurysm (HCC) | + + | Aortic aneurysm of unspecified site without mention of rupture | + + | Hemoptysis | + + | Hemoptysis, unspecified | + + | Multifocal pneumonia | + + | Chronic bronchitis (HCC) | + + | Unspecified chronic bronchitis | + + | Chronic maxillary sinusitis | + + | Obstructive sleep apnea | + + | Obstructive sleep apnea (adult) (pediatric) | + + | Peptic ulcer disease | + + | Peptic ulcer, unspecified site, unspecified as acute or chronic, without mention of | | hemorrhage, perforation, or obstruction | + + | Moderate protein-calorie malnutrition (HCC) | + + | Malnutrition of moderate degree | + + | Severe protein-calorie malnutrition (HCC) | + + | Other severe protein-calorie malnutrition | + + | Aspiration pneumonia (HCC) | + + | Pneumonitis due to inhalation of food or vomitus | + + Admitting Diagnoses + + | Diagnosis | + + | Precordial pain | + + | ASCVD (arteriosclerotic cardiovascular disease) | + + | Unspecified cardiovascular disease | + + | Essential hypertension | + + | Unspecified essential hypertension | + + | Chronic atrial fibrillation (HCC) | + + | Atrial fibrillation | + + | Thoracic aortic aneurysm without rupture (HCC) | + + | Thoracic aneurysm without mention of rupture | + + | Dysphagia, unspecified type | + + | Acute ischemic heart disease | + + Administered Medications + +--------+---------+------+------+------+ | Medication Order | MAR | Action | Dose | Rate | Site | | | Action | Date | | | | + +--------+---------+------+------+------+ + +---+ | acetaminophen (TYLENOL) | | | suppository 650 mg 650 mg, | | | Rectal, Every 6 Hours PRN, Mild | | | Pain (1-3), Fever, Starting Wed | | | 10/23/17 at 2156 | | + +---+ | | | + +---+ | acetaminophen (TYLENOL) tablet | | | 650 mg 650 mg, Oral, Every 6 | | | Hours PRN, Mild Pain (1-3), | | | Fever, Starting 10/23/17 at | | | 2156 | | + +---+ | | | + +---+ + +-------+ + +---+---+ | amoxicillin-clavulanate | Given | | 1 tablet | | | | (AUGMENTIN) 875-125 MG per tablet | | 8 11:21 | | | | | 1 tablet 1 tablet, Oral, Every | | PDT | | | | | 12 Hours Scheduled (2 times per | | | | | | | day), First dose on 10/26/17 | | | | | | | at 1100, Indications: Aspiration | | | | | | | Pneumonia | | | | | | + +-------+ + +---+---+ +---+---+ | | | +---+---+ + +-------+ +-----+-------+---+ | ampicillin-sulbactam (UNASYN) 3 | Given | | 3 g | 100 | | | g in sodium chloride (IV) 0.9 % | | 8 16:54 | | mL/hr | | | 100 mL IVPB 3 g, Intravenous, at | | PDT | | | | | 100 mL/hr, Every 6 Hours, First | | | | | | | dose on [facility] 10/24/17 at 1030, | | | | | | | Indications: Community Acquired | | | | | | | Pneumonia | | | | | | + +-------+ +-----+-------+---+ +-------+ +-----+-------+---+ | Given | | 3 g | 100 | | | | 8 21:30 | | mL/hr | | | | PDT | | | | +-------+ +-----+-------+---+ | Given | | 3 g | 100 | | | | 8 04:42 | | mL/hr | | | | PDT | | | | +-------+ +-----+-------+---+ +---+---+ | | | +---+---+ + +-------+ +-------+---+---+ | aspirin chewable tablet 81 mg | Given | 10/24/2017 | 81 mg | | | | 81 mg, Oral, Daily With | | 16:59 | | | | | Breakfast, First dose on Sat | | PDT | | | | | 10/24/17 at 1600 | | | | | | + +-------+ +-------+---+---+ +---+---+ | | | +---+---+ + +-------+ +-------+---+---+ | atorvastatin (LIPITOR) tablet | Given | 10/23/2017 | 40 mg | | | | 40 mg 40 mg, Oral, Nightly, | | 22:54 | | | | | First dose on Sat10/23/17 at 2230 | | PDT | | | | + +-------+ +-------+---+---+ +-------+ +-------+---+---+ | Given | | 40 mg | | | | | 8 21:30 | | | | | | PDT | | | | +-------+ +-------+---+---+ +---+---+ | | | +---+---+ + +-------+ +--------+-------+---+ | azithromycin (ZITHROMAX) 500 mg | Given | 10/24/2017 | 500 mg | 250 | | | in sodium chloride (IV) 0.9 % | | 12:29 | | mL/hr | | | 250 mL IVPB 500 mg, Intravenous, | | PDT | | | | | Administer over 60 Minutes, | | | | | | | Every 24 Hours, First dose on [facility] | | | | | | | 10/24/17 at 1200 | | | | | | + +-------+ +--------+-------+---+ +-------+ +--------+-------+---+ | Given | | 500 mg | 250 | | | | 8 12:48 | | mL/hr | | | | PDT | | | | +-------+ +--------+-------+---+ +---+---+ | | | +---+---+ + +-------+ +--------+---+---+ | barium (VARIBAR) 40 % | Given | 10/24/2017 | 10 mLs | | | | suspension 10 mL 10 mL, Oral, | | 16:40 | | | | | Img Once PRN, once, Starting [facility]abil[facility] | | PDT | | | | | 10/24/17 at 1612, For 1 dose | | | | | | + +-------+ +--------+---+---+ +---+---+ | | | +---+---+ + +-------+ +--------+---+---+ | barium (VARIBAR) 40 % | Given | 10/24/2017 | 20 mLs | | | | suspension 20 mL 20 mL, Oral, | | 16:39 | | | | | Img Once PRN, once, Starting [facility] | | PDT | | | | | 10/24/17 at 1612, For 1 dose | | | | | | + +-------+ +--------+---+---+ +---+---+ | | | +---+---+ + +-------+ +--------+---+---+ | barium (VARIBAR) 40 % | Given | 10/24/2017 | 45 mLs | | | | suspension 45 mL 45 mL, Oral, | | 16:39 | | | | | Img Once PRN, once, Starting [facility] | | PDT | | | | | 10/24/17 at 1612, For 1 dose | | | | | | + +-------+ +--------+---+---+ +---+---+ | | | +---+---+ + +-------+ +--------+---+---+ | budesonide (PULMICORT) | Given | | 0.5 mg | | | | nebulizer suspension 0.5 mg 0.5 | | 8 20:15 | | | | | mg, Nebulization, 2 Times Daily, | | PDT | | | | | First dose on Sat10/25/17 at 2100 | | | | | | + +-------+ +--------+---+---+ +-------+ +--------+---+---+ | Given | | 0.5 mg | | | | | 8 09:25 | | | | | | PDT | | | | +-------+ +--------+---+---+ +---+---+ | | | +---+---+ + +-------+ +---------+---+---+ | budesonide-formoterol | Given | 10/24/2017 | 2 puffs | | | | (SYMBICORT) 80-4.5 MCG/ACT | | 12:28 | | | | | inhaler 2 puff 2 puff, | | PDT | | | | | Inhalation, 2 Times Daily, First | | | | | | | dose on Sat10/23/17 at 2300 | | | | | | + +-------+ +---------+---+---+ +-------+ +---------+---+---+ | Given | 10/24/2017 | 2 puffs | | | | | 22:53 | | | | | | PDT | | | | +-------+ +---------+---+---+ | Given | | 2 puffs | | | | | 8 09:57 | | | | | | PDT | | | | +-------+ +---------+---+---+ +---+---+ | | | +---+---+ + +-------+ +-------+---+---+ | clopidogrel (PLAVIX) tablet 75 | Given | | 75 mg | | | | mg 75 mg, Oral, Daily, First | | 8 09:58 | | | | | dose on Sat10/25/17 at 0900 | | PDT | | | | + +-------+ +-------+---+---+ +-------+ +-------+---+---+ | Given | | 75 mg | | | | | 8 09:20 | | | | | | PDT | | | | +-------+ +-------+---+---+ +---+---+ | | | +---+---+ + +-------+ +--------+---+---------+ | cyanocobalamin injection 1,000 | Given | | 1,000 | | Left | | mcg 1,000 mcg, Intramuscular, | | 8 13:36 | mcg | | Deltoid | | Once, 10/26/17 at 1330, For 1 | | PDT | | | | | dose | | | | | | + +-------+ +--------+---+---------+ +---+---+ | | | +---+---+ + +-------+ + +---+---+ | digoxin (LANOXIN) tablet 0.125 | Given | | 0.125 mg | | | | mg 0.125 mg, Oral, Daily, First | | 8 09:58 | | | | | dose on Sat10/23/17 at 2230 | | PDT | | | | + +-------+ + +---+---+ +-------+ + +---+---+ | Given | | 0.125 mg | | | | | 8 09:20 | | | | | | PDT | | | | +-------+ + +---+---+ +---+---+ | | | +---+---+ + +-------+ +-------+---+---+ | famotidine (PEPCID) tablet 40 | Given | | 40 mg | | | | mg 40 mg, Oral, Daily, First | | 8 09:58 | | | | | dose on Sat10/23/17 at 2230 | | PDT | | | | + +-------+ +-------+---+---+ +-------+ +-------+---+---+ | Given | | 40 mg | | | | | 8 09:20 | | | | | | PDT | | | | +-------+ +-------+---+---+ +---+---+ | | | +---+---+ + +-------+ +--------+---+---+ | fentaNYL (SUBLIMAZE) injection | Given | 10/24/2017 | 50 mcg | | | | Once PRN, Starting [facility] 10/24/17 at | | 19:19 | | | | | 1919, Intra-procedure (CATH/IR) | | PDT | | | | + +-------+ +--------+---+---+ +---+---+ | | | +---+---+ + +-------+ +--------+ +---+ | ferric gluconate (FERRLECIT) | Given | | 250 mg | 50 mL/hr | | | 250 mg in sodium chloride (IV) | | 8 10:44 | | | | | 0.9 % 100 mL IVPB 250 mg, | | PDT | | | | | Intravenous, Administer over 2 | | | | | | | Hours, Every 24 Hours, First dose | | | | | | | on 10/26/17 at 1030, For 2 | | | | | | | doses | | | | | | + +-------+ +--------+ +---+ +---+---+ | | | +---+---+ + +-------+ +-------+---+---+ | furosemide (LASIX) tablet 20 mg | Given | | 20 mg | | | | 20 mg, Oral, Daily, First dose | | 8 09:58 | | | | | on 10/23/17 at 2230 | | PDT | | | | + +-------+ +-------+---+---+ +-------+ +-------+---+---+ | Given | | 20 mg | | | | | 8 09:20 | | | | | | PDT | | | | +-------+ +-------+---+---+ +---+---+ | | | +---+---+ + +-------+ +--------+---+---+ | guaiFENesin (MUCINEX) 12 hr | Given | | 600 mg | | | | tablet 600 mg 600 mg, Oral, 3 | | 8 21:30 | | | | | Times Daily, First dose on Fri | | PDT | | | | | 10/25/17 at 0730 | | | | | | + +-------+ +--------+---+---+ +-------+ +--------+---+---+ | Given | | 600 mg | | | | | 8 09:20 | | | | | | PDT | | | | +-------+ +--------+---+---+ | Given | | 600 mg | | | | | 8 15:17 | | | | | | PDT | | | | +-------+ +--------+---+---+ +---+---+ | | | +---+---+ + +-------+ +---------+---+---+ | iopamidol (ISOVUE-300) 61 % | Given | 10/24/2017 | 105 mLs | | | | injection 105 mL 105 mL, | | 19:00 | | | | | Intracoronary, Img Once PRN, | | PDT | | | | | Other, Starting [facility] 10/24/17 at | | | | | | | 1900, For 1 dose | | | | | | + +-------+ +---------+---+---+ +---+---+ | | | +---+---+ + +-------+ +-------+---+---+ | ipratropium-albuterol (DUO-NEB) | Given | | 3 mLs | | | | 0.5-2.5 mg/3mL nebulizer | | 8 20:14 | | | | | solution 3 mL 3 mL, | | PDT | | | | | Nebulization, Every 6 Hours, | | | | | | | First dose on [facility] 10/24/17 at 0000 | | | | | | + +-------+ +-------+---+---+ +-------+ +-------+---+---+ | Given | | 3 mLs | | | | | 8 03:15 | | | | | | PDT | | | | +-------+ +-------+---+---+ | Given | | 3 mLs | | | | | 8 09:25 | | | | | | PDT | | | | +-------+ +-------+---+---+ +---+---+ | | | +---+---+ + +-------+ +--------+---+---+ | levothyroxine (SYNTHROID) | Given | | 75 mcg | | | | tablet 75 mcg 75 mcg, Oral, | | 8 05:43 | | | | | Every Morning Before Breakfast, | | PDT | | | | | First dose on [facility] 10/24/17 at 0630 | | | | | | + +-------+ +--------+---+---+ +-------+ +--------+---+---+ | Given | | 75 mcg | | | | | 8 09:20 | | | | | | PDT | | | | +-------+ +--------+---+---+ +---+---+ | | | +---+---+ + +-------+ +--------+---+---+ | lidocaine 1 % injection Once | Given | 10/24/2017 | 10 mLs | | | | PRN, During PCI per physician, | | 19:12 | | | | | Starting [facility] 10/24/17 at 1912, | | PDT | | | | | Intra-procedure (CATH/IR) | | | | | | + +-------+ +--------+---+---+ +---+---+ | | | +---+---+ + +-------+ +-------+---+---+ | losartan (COZAAR) tablet 50 mg | Given | | 50 mg | | | | 50 mg, Oral, Daily, First dose | | 8 09:57 | | | | | on Sat10/23/17 at 2230 | | PDT | | | | + +-------+ +-------+---+---+ +-------+ +-------+---+---+ | Given | | 50 mg | | | | | 8 09:20 | | | | | | PDT | | | | +-------+ +-------+---+---+ +---+---+ | | | +---+---+ + +-------+ +------+---+---+ | morphine (PF) injection 1 mg 1 | Given | 10/24/2017 | 1 mg | | | | mg, Intravenous, Once, [facility] | | 03:57 | | | | | 10/24/17 at 0430, For 1 dose | | PDT | | | | + +-------+ +------+---+---+ +---+---+ | | | +---+---+ + +-------+ +------+---+---+ | morphine (PF) injection 2 mg 2 | Given | 10/24/2017 | 2 mg | | | | mg, Intravenous, Every 4 Hours | | 10:06 | | | | | PRN, Moderate Pain (4-6), Severe | | PDT | | | | | Pain (7-10), Starting [facility] 10/24/17 | | | | | | | at 0956 | | | | | | + +-------+ +------+---+---+ +-------+ +------+---+---+ | Given | 10/24/2017 | 2 mg | | | | | 20:55 | | | | | | PDT | | | | +-------+ +------+---+---+ +---+---+ | | | +---+---+ + +-------+ +--------+---+---+ | nitroGLYCERIN (NITRO-BID) 2 % | Given | 10/24/2017 | 0.5 | | | | ointment 0.5 inch 0.5 inch, | | 00:34 | inches | | | | Topical, Every 6 Hours, First | | PDT | | | | | dose on [facility] 10/24/17 at 0000 | | | | | | + +-------+ +--------+---+---+ +-------+ +--------+---+---+ | Given | 10/24/2017 | 0.5 | | | | | 06:13 | inches | | | | | PDT | | | | +-------+ +--------+---+---+ +---+---+ | | | +---+---+ + +-------+ +--------+---+---+ | potassium chloride oral | Given | | 40 mEq | | | | solution 40 mEq 40 mEq, Oral, | | 8 10:44 | | | | | Daily With Breakfast, First dose | | PDT | | | | | on 10/26/17 at 1000 | | | | | | + +-------+ +--------+---+---+ + +---+ | | | + +---+ | rivaroxaban (XARELTO) tablet 20 | | | mg 20 mg, Oral, Daily With | | | Dinner, First dose on 10/26/17 | | | at 1700 | | + +---+ | | | + +---+ + +-------+ +--------+---+---+ | sertraline (ZOLOFT) tablet 100 | Given | | 100 mg | | | | mg 100 mg, Oral, Daily, First | | 8 09:59 | | | | | dose on Sat10/23/17 at 2230 | | PDT | | | | + +-------+ +--------+---+---+ +-------+ +--------+---+---+ | Given | | 100 mg | | | | | 8 09:21 | | | | | | PDT | | | | +-------+ +--------+---+---+ +---+---+ | | | +---+---+ + +-------+ +-------+---+---+ | sodium bicarbonate buffer | Given | 10/24/2017 | 5 mLs | | | | (NEUT) injection Once PRN, | | 19:12 | | | | | during PCI per physician, | | PDT | | | | | Starting [facility] 10/24/17 at 1912 | | | | | | + +-------+ +-------+---+---+ +---+---+ | | | +---+---+ + +-------+ +--------+---+---+ | sodium chloride (PF) 0.9 % | Given | | 10 mLs | | | | flush 10 mL 10 mL, Intravenous, | | 8 12:54 | | | | | Every 8 Hours, First dose on Wed | | PDT | | | | | 10/23/17 at 2230 | | | | | | + +-------+ +--------+---+---+ +-------+ +--------+---+---+ | Given | | 10 mLs | | | | | 8 21:30 | | | | | | PDT | | | | +-------+ +--------+---+---+ | Given | | 10 mLs | | | | | 8 04:42 | | | | | | PDT | | | | +-------+ +--------+---+---+ +---+---+ | | | +---+---+ + +-------+ +--------+---+---+ | tamsulosin (FLOMAX) capsule 0.4 | Given | 10/23/2017 | 0.4 mg | | | | mg 0.4 mg, Oral, After Dinner, | | 22:54 | | | | | First dose on Sat10/23/17 at 2230 | | PDT | | | | + +-------+ +--------+---+---+ +-------+ +--------+---+---+ | Given | | 0.4 mg | | | | | 8 17:01 | | | | | | PDT | | | | +-------+ +--------+---+---+ +---+---+ | | | +---+---+ in this encounter
--- OUTSIDE RECORDS SUMMARY | ~2017-10-28 | XMS | Encounter Summary ---
Demographics + + + | Address | [address] | | | [place] [address] | + + + | Home Phone | | + + + | Preferred Language | Unknown | + + + | Marital Status | | + + + | Latter Day Affiliation | 1028 | + + + | Race | Unknown | + + + | Ethnic Group | Unknown | + + + Author + + + | Author | [facility] | + + + | Organization | [facility] | + + + | Address | Unknown | + + + | Phone | Unavailable | + + + Support + + + + + | Name | Relationship | Address | Phone | + + + + + | Blossom Rose | ECON | [address] | | | | | [place] | | | | | [address] | | + + + + + | Message,Detailed | ECON | Unknown | | + + + + + Care Team Providers + +------+ + | Care Senior Bioinformatics Specialist Name | Role | Phone | [...] + + | 10/23/ | Ancillary | [facility] | See, Medical | Pain | | 2018 | [facility] | [facility] | Record | | | | | [address] | | | | | | [place] [address] | | | | | | [phone] | | | +--------+ + + + [...] | | | | | [place] [address] | | | | | | [phone] | | | | | | | | +--------+ + + + + | 12/04/ | Office | Cardiology | Cristian Mccoy, | | | 2017 | Visit | | MD Alayna Rajan | | | | | | [address], | | | | | | [place] [address] | | | | | | [phone] | | | | | | | | +--------+ + + + + | 01/08/ | Office | Cardiology | Cristian Mccoy, | | | 2017 | Visit | | MD [address] | | | | | | [address], | | | | | | [place] [address] | | | | | | [phone] | | | | | | | [...] [place] | | | | | | [address] | | | | | | | [...] [facility] | [address] | [place] [place] [address] | | + + + + + in this encounter Visit Diagnoses + + | Diagnosis | + + | Pain | + + | Generalized pain | + +"
--- OUTSIDE RECORDS SUMMARY | ~2017-10-28 | XMS | Encounter Summary ---
Demographics + + + | Address | [address] | | | [place] [address] | + + + | Home Phone | | + + + | Preferred Language | Unknown | + + + | Marital Status | | + + + | Samaritan Affiliation | 1028 | + + + | Race | Unknown | + + + | Ethnic Group | Unknown | + + + Author + + + | Author | [facility] [employer] | + + + | Organization | [facility] [employer] | + + + | Address | Unknown | + + + | Phone | Unavailable | + + + Support + + + + + | Name | Relationship | Address | Phone | + + + + + | Blossom Rose | ECON | [address] | | | | | [place] | | | | | [address] | | + + + + + | Message,Detailed | ECON | Unknown | | + + + + + Care Team Providers + +------+ + | Care Fan Balancer Name | Role | Phone | + +------+ + | Wellington Puga MD | PCP | | + +------+ + Reason for Referral Nuclear Medicine (Routine) + +--------+ + + + + | Status | Reason | Specialty | Diagnoses / | Referred By | Referred To | | | | | Procedures | Contact | Contact | + +--------+ + + + + | Authorized | | | Diagnoses | [place], | [facility] | | | | | [facility] | | | | | Atherosclero | [address] | | | | | sis of | [address] | [address] | | | | | coronary | Bharath F | [place], [place] | | | | | artery, | [place], [place] | [address] | | | | | angina | [address] | Phone: | | | | | presence | Phone: | [phone] | | | | | unspecified, | [phone] | Fax: | | | | | unspecified | Fax: | [phone] | | | | | vessel or | [phone] | | | | | | lesion type, | | | | | | | unspecified | | | | | | | whether | | | | | | | coquille or | | | | | | | transplanted | | | | | | | heart | | | | | | | ASCVD | | | | | | | (arterioscle | | | | | | | rotic | | | | | | | cardiovascul | | | | | | | ar disease) | | | | | | | [...] | | | | | | | Procedures | | | | | | | NM | | | | | | | Pharmaceutic | | | | | | | al (stress | | | | | | | and rest) | | | + +--------+ + + + + Reason for Visit + + + | Reason | Comments | + + + | Establish Care | referral from Dr. Puga | + + + Consult and Treat (Routine) +--------+--------+ + + + + | Status | Reason | Specialty | Diagnoses / | Referred By | Referred To | | | | | Procedures | Contact | Contact | +--------+--------+ + + + + | Closed | | Cardiology | Diagnoses | Sisi, | Nadine | | | | | | MD Wellington | MD Cristian | | | | | Atherosclero | [address] | [address] | | | | | tic heart | [place] | Dr Zurita | | | | | disease of | [address] | [place] | | | | | coquille | [place], | [address] Phone: | | | | | coronary | [place] [address] | [phone] | | | | | artery | Phone: | Fax: | | | | | without | [phone] | [phone] | | | | | angina | Fax: | | | | | | pectoris | [phone] | | | | | | Procedures | | | | | | | Consult | | | +--------+--------+ + + + + Encounter Details +--------+ + + + + | Date | Type | Department | Care Team | Description | +--------+ + + + + | 10/07/ | Initial | [facility] [place] | Cristian Mccoy, | Encounter for annual | | 2018 | consult | Cardiology [facility] | [address] | health examination | | | | [address] | [address], | (Primary Dx); | | | | [place], [place] | [place] [address] | Atherosclerosis of | | | | [address] | [phone] | coronary artery, | | | | [phone] | | angina presence | | | | | | unspecified, | | | | | | unspecified vessel | | | | | | or lesion type, | | | | | | unspecified whether | | | | | | coquille or | | | | | | transplanted heart; | | | | | | ASCVD | | | | | | (arteriosclerotic | | | | | | cardiovascular | | | | | | disease); Essential | | | | | | hypertension; | | | | | | Chronic atrial | | | | | | fibrillation (HCC); | | | | | | Thoracic aortic | | | | | | aneurysm without | | | | | | rupture (HCC) | +--------+ + + + + Social [...] + | Blood Pressure | 132/64 | 10/07/2017 12:51 PM PDT | + + + + | Pulse | 61 | 10/07/2017 12:51 PM PDT | + + + + | Temperature | - | - | + + + + | Respiratory Rate | - | - | + + + + | Oxygen Saturation | 99% | 10/07/2017 12:51 PM PDT | + + + + | Inhaled Oxygen | - | - | | Concentration | | | + + + + | Weight | 75.5 kg (166 lb 6.4 | 10/07/2017 12:51 PM PDT | | | oz) | | + + + + | Height | 172.7 cm (5' 8") | 10/07/2017 12:51 PM PDT | + + + + | Body Mass Index | 25.3 | 10/07/2017 12:51 PM PDT | + + + + in this encounter Progress Notes Cristian Mccoy MD - 10/07/2017 1:00 PM PDTFormatting of this note may be different fro m the original. Date of visit: 10/07/2017 Primary Care Physician: WELLINGTON PUGA CHIEF COMPLAINT: Chief Complaint Patient presents with Establish Care referral from Dr. Puga HISTORY OF PRESENT ILLNESS: German is 72 y.o. resented to establish care. Complex past medical history. Overall modestly active, denies any anginal symptoms. He has shortness of breath which is c hronic due to chronic obstructive pulmonary disease. No recent hospitalization, blood pressure has been controlled. Used to follow-up with an [place] [facility] last time seen was in 2004, after that he was e valuated by Dr. Torrez in 2012. No recent cardiology follow-up. S/P CABG x 4 in 1995. Had a vocal cord cancer in 1997. Diagnosed with atrial fibrillation m any years ago. Had peptic ulcer disease and aspirin had to be stopped, patient had to have blood transfusi on. Past medical history, SH, FH, and medications were reviewed in the chart. Medications: Outpatient Encounter Prescriptions as of 10/07/2017 Medication Sig Dispense Refill acyclovir (ZOVIRAX) 400 MG tablet Take 400 mg by mouth 5 (five) times daily. PRN Albuterol Sulfate 108 (90 BASE) MCG/ACT AEPB Inhale into the lungs. alendronate (FOSAMAX) 70 MG tablet Take 70 mg by mouth every 7 days. Take in the mornin g with a full glass of water, on an empty stomach, and do not take anything else by mouth or lie down for the next 30 min. azaTHIOprine (IMURAN) 50 MG tablet Take 50 mg by mouth daily. bacitracin-polymyxin b (POLYSPORIN) ophthalmic ointment Apply to eye every 12 (twelve) hours. bismuth subsalicylate (PEPTO BISMOL) 262 MG chewable tablet Take 262 mg by mouth 4 (fou r) times daily before meals and nightly. UXOIERX-WOUYDKQNW-APCQ PO Take 1 tablet by mouth daily. cholecalciferol (VITAMIN D-3) 1000 UNITS tablet Take 1,000 Units by mouth daily. diclofenac (VOLTAREN) 1 % Apply 2 g topically 4 (four) times daily. PRN digoxin (LANOXIN) 0.25 MG tablet Take 125 mcg by mouth daily. diltiazem (CARDIZEM) 120 MG tablet Take 60 mg by mouth daily. famotidine (PEPCID) 40 MG tablet Take 40 mg by mouth daily. ferrous sulfate, 65 FE, 325 (65 FE) MG tablet Take 65 mg of iron by mouth daily with br eakfast. fluticasone (FLONASE) 50 MCG/ACT nasal one spray in each nostril daily as needed fluticasone-salmeterol (ADVAIR) 500-50 MCG/DOSE diskus inhaler Inhale 1 puff into the l ungs 2 (two) times daily. folic acid (FOLVITE) 1 MG tablet Take 1 mg by mouth daily. furosemide (LASIX) 40 MG tablet Take 20 mg by mouth daily. guaiFENesin (MUCINEX) 600 MG 12 hr tablet Take 600 mg by mouth 2 (two) times daily. PRN HYDROcodone-acetaminophen (NORCO) 7.5-325 MG per tablet Take 1 tablet by mouth every 6 (six) hours as needed for Pain. Krill Oil 500 MG CAPS Take 1 tablet by mouth daily. levothyroxine (SYNTHROID) 75 MCG tablet Take 75 mcg by mouth every morning before break fast. losartan (COZAAR) 50 MG tablet Take 50 mg by mouth daily. mupirocin (BACTROBAN) 2 % nasal ointment 1 g by Nasal route 2 (two) times daily. Use pe a sized amount in each nostril twice daily for 5 days. After applications, press sides of no se together, gently massage for 1 min. mupirocin (BACTROBAN) 2 % ointment Apply topically 3 (three) times daily. 22 g 2 potassium chloride (K-DUR) 10 MEQ tablet Take 10 mEq by mouth 2 (two) times daily with meals. predniSONE (DELTASONE) 2.5 MG tablet Take 10 mg by mouth daily. Takes 2 5mg tablets dante ry other day pseudoephedrine (SUDAFED) 30 MG tablet Take 30 mg by mouth every 6 (six) hours as neede d for Congestion. rivaroxaban (XARELTO) 20 MG tablet Take 20 mg by mouth daily with dinner. sertraline (ZOLOFT) 100 MG tablet Take 100 mg by mouth daily. tamsulosin (FLOMAX) 0.4 MG capsule Take 0.4 mg by mouth After dinner. trolamine salicylate (ASPERCREME) 10 % cream Apply topically as needed. [DISCONTINUED] clindamycin (CLEOCIN) 150 MG capsule Take 150 mg by mouth as needed. azelastine (ASTELIN) 0.1 % nasal spray 1 spray by Nasal route 2 (two) times daily. Use in each nostril as directed 30 mL 12 cyanocobalamin (VITAMIN B-12) 1000 MCG tablet Take 1,000 mcg by mouth daily. loratadine (CLARITIN) 10 MG tablet Take 10 mg by mouth daily. nystatin (MYCOSTATIN) cream Apply topically 2 (two) times daily. nystatin-triamcinolone (MYCOLOG) ointment Apply topically 2 (two) times daily. ofloxacin (OCUFLOX) 0.3 % ophthalmic solution omeprazole (PRILOSEC) 20 MG capsule Take 20 mg by mouth every morning before breakfast. oxyCODONE-acetaminophen (PERCOCET) 5-325 MG per tablet Take 1 tablet by mouth every 4 ( four) hours as needed for Pain. [DISCONTINUED] allopurinol (ZYLOPRIM) 300 MG tablet [DISCONTINUED] fluticasone-salmeterol (ADVAIR) 500-50 MCG/DOSE diskus inhaler Inhale 1 puff into the lungs 2 (two) times daily. [DISCONTINUED] methotrexate (TREXALL) 2.5 MG tablet Take 7 tablets by mouth once a week . (Patient not taking: Reported on 10/07/2017) 28 tablet 0 [DISCONTINUED] metoclopramide (REGLAN) 10 MG tablet Take 10 mg by mouth 4 (four) times daily before meals and nightly. [DISCONTINUED] potassium citrate (UROCIT-K) 10 MEQ (1080 MG) SR tablet Take 10 mEq by m outh. [DISCONTINUED] rivaroxaban (XARELTO) 20 MG tablet Take 20 mg by mouth daily with dinner . No facility-administered encounter medications on file as of 10/07/2017. 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 HEENT: Negative for nosebleeds, ear discharge. History of vocal cord cancer. Eyes: Negative for visual disturbance, redness, or secretion. Respiratory: Chronic cough and shortness of breath. Cardiovascular: As history of present illness. Gastrointestinal: Negative for nausea, vomiting, diarrhea, abdominal pain and blood in stoo l. Genitourinary: Negative for dysuria or hematuria. Musculoskeletal: Arthritic pain. Skin: Negative for rash. Neurological: Negative for dizziness. No numbness. No recent falls. No slurred speech. Hematological: No significant bruising. Psychiatric/Behavioral: No depression or anxiety. PHYSICAL EXAM Vital Signs: BP 132/64 (BP Location: Left upper arm, Patient Position: Sitting) | Pulse 61 | Ht 1.727 m (5' 8") | Wt 75.5 kg (166 lb 6.4 oz) | SpO2 99% | BMI 25.30 kg/m GENERAL APPEARANCE: Alert, oriented, cooperative, no distress, appears stated age. HEENT: Extraocular movements were intact. No jaundice. Pupiles round and reactive. NECK: No JVD, lymphadenopathy. Carotid upstrokes normal. No carotid bruit heard. CARDIAC: Regular rhythm and rate. There is normal S1 and S2. No galop. No murmur. CHEST: Normal bilateral symmetrical chest excursion.ackles or wheezing. No evidence of dull ness. ABDOMEN: Soft.No tenderness or guarding. No palpable organs. Active bowel sounds. EXTREMITIES: No lower extremities edema, cyanosis or clubbing. NEURO: Alert and oriented times three with no focal deficit. Cranial nerves are grossly no rmal. SKIN: Warm and dry. No rash. Psych: Normal affect and mood. DATA No results found for: NA, K, CO2, BUN, CREATININE, CALCIUM, MG Lab Results Component Value Date/Time WBC 9.22 10/22/2014 12:02 PM HGB 12.2 (L) 10/22/2014 12:02 PM HCT 36.8 (L) 10/22/2014 12:02 PM MCV 91.7 10/22/2014 12:02 PM PLT 166 10/22/2014 12:02 PM No results found for: CHOL, TRIG, HDL, LDL, GLUF, HGBA1C, TSH EC10/07/2017 Ordered and reviewed by myself showed atrial fibrillation with RBBB. Rare PVC. Last Echo: 06/30/2012 Reported with normal LV size and function EF 56%. RV is normal in size and function. Last Stress test: 2004 Lexiscan perfusion report to be equivocal. Last Cath: Last US carotid: ASSESSMENT: Patient is 72 y.o. with the following medical problems: 1. Chronic atrial fibrillation. On rate control strategy and anticoagulation. CHADSVASc sco re of 4. 2. AAA. 3. Coronary artery disease S/P CABG x 4 1995. 4. RBBB. 5. Hypertension blood pressures controlled. 6. Chronic obstructive pulmonary disease. 7. History of upper GI bleed due to peptic ulcer off aspirin since then. 8. History of vocal cord cancer. Plan: Patient is 72 with complex past medical history. Reviewed patient records. At this time will continue with diltiazem and digoxin for rate control. Continue with Rivaroxaban for anticoagulation. Off aspirin due to previous GI bleed. Patient has pulmonology evaluation scheduled. Cardiolite stress test to evaluate for ischemic burden is ordered. We will follow-up in 3 months or earlier if needed. *This report has been prepared using a voice recognition system. The report was reviewed fo r accuracy, however, sound-alike word errors, addition and/or deletions may occur. If there is any question about this report please contact me. Cristian Mccoy MD, MPHin this encounter Plan of Treatment +--------+ + + + + | Date | Type | Specialty | Care Team | Description | +--------+ + + + + | 11/28/ | Office | Pulmonology | Elia, | | | 2017 | Visit | | Mary Pinto, | | | | | | MD [address] | | | | | | [place] [address] | | | | | | [phone] | | | | | | | | +--------+ + + + + | 12/04/ | Office | Cardiology | Cristian Mccoy, | | | 2017 | Visit | | MD [address] | | | | | | Dr [address], | | | | | | [place] [address] | | | | | | [phone] | | | | | | | | +--------+ + + + + | 01/08/ | Office | Cardiology | Cristian Mccoy, | | | 2017 | Visit | | MD [address] | | | | | | [address], | | | | | | [place] [address] | | | | | | [phone] | | | | | | | [...] | 2018 | Visit | | [address] | | | | | | [place] | | | | | | [address] | | | | | | | | +--------+ + + + + + +--------+ + + | Name | Priori | Associated Diagnoses | Order Schedule | | | ty | | | + +--------+ + + | NM Pharmaceutical (stress and | Routin | Atherosclerosis of | Expected: | | rest) | e | coronary artery, | 10/07/2017, Expires: | | | | angina presence | 04/09/2018 | | | | unspecified, | | | | | unspecified vessel | | | | | or lesion type, | | | | | unspecified whether | | | | | coquille or | | | | | transplanted heart | | | | | ASCVD | | | | | (arteriosclerotic | | | | | cardiovascular | | | | | disease) Chronic | | | | | atrial fibrillation | | | | | (HCC) Thoracic | | | | | aortic aneurysm | | | | | without rupture | | | | | (HCC) | | + +--------+ + + as of this encounter Procedures + +--------+ + + + | Procedure Name | Priori | Date/Time | Associated Diagnosis | Comments | | | ty | | | | + +--------+ + + + | EK STANDARD 12 LEAD | Routin | 10/07/2017 | Encounter for | Results for this | | | e | 1:13 PM | annual health | procedure are in the | | | | PDT | examination | results section. | | | | | Atherosclerosis of | | | | | | coronary artery, | | | | | | angina presence | | | | | | unspecified, | | | | | | unspecified vessel | | | | | | or lesion type, | | | | | | unspecified whether | | | | | | coquille or | | | | | | transplanted heart | | + +--------+ + + + in this encounter Results [facility] STANDARD 12 LEAD (10/07/2017 1:13 PM) + + + + + | Component | Value | Ref Range | Performed At | + + + + + | Ventricular Rate | 62 | BPM | [facility] | + + + + + | Atrial Rate | 81 | BPM | [facility] | + + + + + | QRS Duration | 128 | ms | [facility] | + + + + + | Q-T Interval | 406 | ms | [facility] | + + + + + | QTC Calculation | 412 | ms | [facility] | | (Bezet) | | | | + + + + + | Calculated R [place] | -77 | degrees | [facility] | + + + + + | Calculated T Roy | 38 | degrees | [facility] | + + + + + | Diagnosis | Atrial fibrillation with | | [facility] | | | premature ventricular | | | | | or aberrantly conducted | | | | | complexesRight bundle | | | | | branch blockLeft | | | | | anterior fascicular | | | | | block Bifascicular | | | | | block Abnormal | | | | | ECGWhen compared with | | | | | ECG of 22-OCT-2014 | | | | | 11:38,No significant | | | | | change was foundPlease | | | | | refer to Providers | | | | | office visit note for | | | | | Providers | | | | | Interpretation.Confirmed | | | | | by [facility] [place] Read Only, | | | | | [facility] [address] ([id number]), | | | | | publishing editor Elbert Portillo | | | | | ([id number]) on 10/07/2017 | | | | | 1:52:40 PM | | | + + + + + + + + + + | Performing | Address | City/State/Zipcode | Phone Number | | Organization | | | | + + + + + | [facility] | [address] | [place] [address] | | + + + + + in this encounter Visit Diagnoses + + | Diagnosis | + + | Encounter for annual health examination - Primary | + + | Routine general medical examination at a health care facility | + + | Atherosclerosis of coronary artery, angina presence unspecified, unspecified vessel or | | lesion type, unspecified whether coquille or transplanted heart | + + | ASCVD (arteriosclerotic cardiovascular [...]
--- OUTSIDE RECORDS SUMMARY | ~2017-10-28 | XMS | Encounter Summary ---
Demographics + + + | Address | [address] | | | [place] [address] | + + + | Home Phone [...] + + | Author | [facility] | + + + | Organization | [facility] [employer] [facility] | + + + | Address | Unknown | + + + | Phone | Unavailable | + + + Support + + + + + | Name | Relationship | Address | Phone | + + + + + | Blossom Rose | ECON | [address] | | | | | [place] | | | | | [address] | | + + + + + | Message,Detailed | ECON | Unknown | | + + + + + Care Team Providers + +------+ + | Care Budget Accountant Name | Role | Phone | + [...] | | | | | artery, | [place] | [address] | | | | | angina | [address] | Phone: | | | | | presence | Phone: | [phone] | | | | | unspecified, | [phone] | Fax: | | | | | unspecified | Fax: | [phone] | | | | | vessel or | [phone] | | | | | | lesion type, | | | | | | | unspecified | | | | | | | whether | | | | | | | makah or | | | | | | [...] [place] | | | | | makah | [place], | [address] Phone: | | | | | coronary | [place] [address] | [phone] | | | | | artery | Phone: | Fax: | | | | | without | [phone] | [phone] | | | | | angina | Fax: | | | | | | pectoris | [phone] | | | | | | Procedures | | | | | | | Consult | | | +--------+--------+ + + + + Encounter Details +--------+ + + + + | Date | Type | Department | Care Team | Description | +--------+ + + + + | 10/07/ | Initial | [facility] [place] | Cristian Mccoy, | Encounter for annual | | 2018 | consult | Cardiology [facility] | [address] | health examination | | | | [address] | [address], | (Primary Dx); | | | | [place], [place] | [place] [address] | Atherosclerosis of | | | | [address] | [phone] | coronary artery, | | | | [phone] | | angina presence | | | | | | unspecified, | | | | | | unspecified vessel | | | | | | or lesion type, | | | | | | unspecified whether | | | | | | makah or | | | | | | [...] been controlled. Used to follow-up with an [facility] last time seen was in 2004, [...] r) times daily before meals and nightly. [id number] PO Take 1 tablet by mouth daily. [...] Anaphylaxis Diltiazem Edema Gabapentin Other (See Comments) LOADER SEMICONDUCTOR DIES Imipramine Other (See Comments) Urinary retention Metoprolol [...] | | | | | [place] [address] | | | | | | [phone] | | | | | | | | +--------+ + + + + | 12/04/ | Office | Cardiology | Cristian Mccoy, | | | 2017 | Visit | | MD [address] | | | | | | Dr [address], | | | | | | [place] [address] | | | | | | [phone] | | | | | | | | +--------+ + + + + | 01/08/ | Office | Cardiology | Cristian Mccoy, | | | 2017 | Visit | | MD [address] | | | | | | [address], | | | | | | [place] [address] | | | | | | [phone] | | | | | | | [...] [place] | | | | | | [address] | | | | | | | [...] unspecified whether | | | | | makah or | | | | | transplanted [...] whether | | | | | | makah or | | | | | | transplanted heart | | + +--------+ + + + in this encounter Results [facility] STANDARD 12 LEAD (10/07/2017 1:13 PM) + [...] + + + + | Calculated R [place] | -77 | degrees | [facility] | + + + + + | Calculated T [place] | 38 | degrees | [facility] [...] | | | | | by [facility] [place] Read Only, | | | | | [facility] [address] ([id number]), | | | | | news videotape editor Elbert Portillo | | | | | (253) on 10/07/2017 | | | | | 1:52:40 PM | | | + + + + + + + + + + | Performing | Address | City/State/Zipcode | Phone Number | | Organization | | | | + + + + + | [facility] | [address] | [place] [address] | | + + + + + in this encounter Visit Diagnoses + + | Diagnosis | + + | Encounter for annual health examination - Primary | + + | Routine general medical examination at a health care facility | + + | Atherosclerosis of coronary artery, angina presence unspecified, unspecified vessel or | | lesion type, unspecified whether makah or transplanted heart | + + | [...]
--- OUTSIDE RECORDS SUMMARY | ~2017-10-28 | XMS | Encounter Summary ---
Demographics + + + | Address | [address] | | | [place] [address] | + + + | Home Phone | | + + + | Preferred Language | Unknown | + + + | Marital Status | | + + + | Uatsdin Affiliation | 1028 | + + + | Race | Unknown | + + + | Ethnic Group | Unknown | + + + Author + + + | Author | [facility] | + + + | Organization | [facility] [employer] | + + + | Address | Unknown | + + + | Phone | Unavailable | + + + Support + + + + + | Name | Relationship | Address | Phone | + + + + + | Blossom Rose | ECON | [address] | | | | | [place] | | | | | [address] | | + + + + + | Message,Detailed | ECON | Unknown | | + + + + + Care Team Providers + +------+ + | Care Vineyard Supervisor Name | Role | Phone | [...] + | 10/27/ | Telephone | [facility] [place] | Bhavesh Huggins, | Diarrhea | | 2018 | | Cardiology [place] | [address] | | | | | [address] | [facility], | | | | | [place], [place] | [place] [address] | | | | | [address] | [phone] | | | | | [phone] | | | +--------+ + + + [...] | | | | | | [place] [address] | | | | | | [phone] | | | | | | | | +--------+ + + + + | 12/04/ | Office | Cardiology | Cristian Mccoy, | | | 2017 | Visit | | MD [address] | | | | | | [address], | | | | | | [place] [address] | | | | | | [phone] | | | | | | | | +--------+ + + + + | 01/08/ | Office | Cardiology | Cristian Mccoy, | | | 2017 | Visit | | MD [address] | | | | | | [address], | | | | | | [place] [address] | | | | | | [phone] | | | | | | | [...] [place] | | | | | | [address] | | | | | | | | +--------+ + + + + as of this encounter Visit Diagnoses Not on filein this encounter"
--- OUTSIDE RECORDS SUMMARY | ~2017-10-28 | XMS | Encounter Summary ---
Demographics + + + | Address | [address] | | | [place] [address] | + + + | Home Phone | | + + + | Preferred Language | Unknown | + + + | Marital Status | | + + + | Yarsanism Affiliation | 1028 | + + + | Race | Unknown | + + + | Ethnic Group | Unknown | + + + Author + + + | Author | [facility] | + + + | Organization | [facility] | + + + | Address | Unknown | + + + | Phone | Unavailable | + + + Support + + + + + | Name | Relationship | Address | Phone | + + + + + | Blossom Rose | ECON | [address] | | | | | [place] | | | | | [address] | | + + + + + | Message,Detailed | ECON | Unknown | | + + + + + Care Team Providers + +------+ + | Care State Pilot Name | Role | Phone | + [...] + | 10/27/ | Telephone | [facility] | Bhavesh Huggins, | Diarrhea | | 2018 | | Cardiology [place] | [address] | | | | | [address] | [facility], | | | | | [place], [place] | [place] [address] | | | | | [address] | [phone] | | | | | [phone] | | | +--------+ + + + [...] | | | | | | [place] [address] | | | | | | [phone] | | | | | | | | +--------+ + + + + | 12/04/ | Office | Cardiology | Cristian Mccoy, | | | 2017 | Visit | | MD [address] | | | | | | [address] [place], | | | | | | [place] [address] | | | | | | [phone] | | | | | | | | +--------+ + + + + | 01/08/ | Office | Cardiology | Cristian Mccoy, | | | 2017 | Visit | | MD [address] | | | | | | [address] [place], | | | | | | [place] [address] | | | | | | [phone] | | | | | | | [...] [place] | | | | | | [address] | | | | | | | | +--------+ + + + + as of this encounter Visit Diagnoses Not on filein this encounter"
--- OUTSIDE RECORDS SUMMARY | ~2017-10-28 | XMS | Encounter Summary ---
Demographics + + + | Address | [address] | | | [place] [address] | + + + | Home Phone | | + + + | Preferred Language | Unknown | + + + | Marital Status | | + + + | Baptism Affiliation | 1028 | + + + | Race | Unknown | + + + | Ethnic Group | Unknown | + + + Author + + + | Author | [facility] [employer] | + + + | Organization | [facility] [employer] | + + + | Address | Unknown | + + + | Phone | Unavailable | + + + Support + + + + + | Name | Relationship | Address | Phone | + + + + + | Blossom Rose | ECON | [address] | | | | | [place] | | | | | [address] | | + + + + + | Message,Detailed | ECON | Unknown | | + + + + + Care Team Providers + +------+ + | Care Pay Per Click Strategist Name | Role | Phone | + [...] [place] | | | | | | [address] | | | | | | [phone] | | | +--------+ + + + [...] | | | | | [place] [address] | | | | | | [phone] | | | | | | | | +--------+ + + + + | 12/04/ | Office | Cardiology | Cristian Mccoy, | | | 2017 | Visit | | [address] | | | | | | [address] [place], | | | | | | [place] [address] | | | | | | [phone] | | | | | | | | +--------+ + + + + | 01/08/ | Office | Cardiology | Cristian Mccoy, | | | 2017 | Visit | | MD [address] | | | | | | [address] [place], | | | | | | [place] [address] | | | | | | [phone] | | | | | | | [...] [place] | | | | | | [address] | | | | | | | | +--------+ + + + + as of this encounter Visit Diagnoses Not on filein this encounter"
--- OUTSIDE RECORDS SUMMARY | ~2017-10-28 | XMS | Clinical Summary ---
Demographics + + + | Address | [address] | | | [place] [address] | + + + | Home Phone | | + + + | Preferred Language | Unknown | + + + | Marital Status | | + + + | Yazidi Affiliation | LUT | + + + [...] Team Providers + +------+ + | Care Cardiac Nurse Practitioner Name | Role | Phone | + +------+ + | Maycol Knutson MD | PP | | + +------+ + Source Comments ARIANNA is fully live on both [facility] Ambulatory and [facility] InPatient.[facility] Allergies No Known Allergies Current [...] | re | [address] | [place] [address] | | | B | | | [...] | irish | | | 5865 | [address] | + +--------+ +--------+ + +
--- OUTSIDE RECORDS SUMMARY | ~2017-10-28 | XMS | Encounter Summary ---
Demographics + + + | Address | [address] | | | [place] [address] | + + + | Home Phone | | + + + | Preferred Language | Unknown | + + + | Marital Status | | + + + | Rastafari Affiliation | 1028 | + + + | Race | Unknown | + + + | Ethnic Group | Unknown | + + + Author + + + | Author | [facility] [employer] | + + + | Organization | [facility] [employer] [facility] | + + + | Address | Unknown | + + + | Phone | Unavailable | + + + Support + + + + + | Name | Relationship | Address | Phone | + + + + + | Blossom Rose | ECON | [address] | | | | | [place] | | | | | [address] | | + + + + + | Message,Detailed | ECON | Unknown | | + + + + + Care Team Providers + +------+ + | Care Taxation Accountant Name | Role | Phone | [...] + + | 07/31/ | Hospital | [facility] | See, Medical | Pain | | 2018 | Encounter | [facility] | Record | | | | | RADIOLOGY [address] | | | | | | [address] | | | | | | [place] [address] | | | | | | [phone] | | | +--------+ + + + [...] by | | | | | | [id number] | mouth daily. | | | | [...] | | | | | | [place] [address] | | | | | | [phone] | | | | | | | | +--------+ + + + + | 12/04/ | Office | Cardiology | Cristian Mccoy, | | | 2017 | Visit | | MD [address] | | | | | | Dr [place], | | | | | | [place] [address] | | | | | | [phone] | | | | | | | | +--------+ + + + + | 01/08/ | Office | Cardiology | Cristian Mccoy, | | | 2017 | Visit | | MD [address] | | | | | | [address] [place], | | | | | | [place] [address] | | | | | | [phone] | | | | | | | [...] [place] | | | | | | [id number] | | | | | | | [...] [facility] | [address] | [place] [address] | | + + + + + in this encounter Visit Diagnoses + + | Diagnosis | + + | Pain | + + | Generalized pain | + +"
--- OUTSIDE RECORDS SUMMARY | ~2017-10-28 | XMS | Encounter Summary ---
Demographics + + + | Address | [address] | | | [place] [address] | + + + | Home Phone | | + + + | Preferred Language | Unknown | + + + | Marital Status | | + + + | Yazidism Affiliation | 1028 | + + + | Race | Unknown | + + + | Ethnic Group | Unknown | + + + Author + + + | Author | [facility] | + + + | Organization | [facility] | + + + | Address | Unknown | + + + | Phone | Unavailable | + + + Support + + + + + | Name | Relationship | Address | Phone | + + + + + | Blossom Rose | ECON | [address] | | | | | [place] | | | | | [address] | | + + + + + | Message,Detailed | ECON | Unknown | | + + + + + Care Team Providers + +------+ + | Care Moisture Tester Name | Role | Phone | [...] [address] | | | | | | [place] [address] | | | | | | [phone] | | | +--------+ + + + [...] | | | | | [place] [address] | | | | | | [phone] | | | | | | | | +--------+ + + + + | 12/04/ | Office | Cardiology | Cristian Mccoy, | | | 2017 | Visit | | [address] | | | | | | Dr [place], | | | | | | [place] [address] | | | | | | [phone] | | | | | | | | +--------+ + + + + | 01/08/ | Office | Cardiology | Cristian Mccoy, | | | 2017 | Visit | | MD [address] | | | | | | [address] [place], | | | | | | [place] [address] | | | | | | [phone] | | | | | | | [...] [place] | | | | | | [address] | | | | | | | [...] [facility] | [address] | [place] [address] | | + + + + + in this encounter Visit Diagnoses + + | Diagnosis | + + | Pain | + + | Generalized pain | + +"
--- OUTSIDE RECORDS SUMMARY | ~2017-10-28 | XMS | Encounter Summary ---
Demographics + + + | Address | [address] | | | [place] [address] | + + + | Home Phone | | + + + | Preferred Language | Unknown | + + + | Marital Status | | + + + | Holiness Affiliation | 1028 | + + + | Race | Unknown | + + + | Ethnic Group | Unknown | + + + Author + + + | Author | [facility] | + + + | Organization | [facility] | + + + | Address | Unknown | + + + | Phone | Unavailable | + + + Support + + + + + | Name | Relationship | Address | Phone | + + + + + | Blossom oRse | ECON | [address] | | | | | [place] | | | | | [address] | | + + + + + | Message,Detailed | ECON | Unknown | | + + + + + Care Team Providers + +------+ + | Care Railway Switch Operator Name | Role | Phone | + +------+ + | Nelosn Laird MD | PCP | | + [...] + + | 10/16/ | Ancillary | [facility] | See, Medical | Pain | | 2018 | [facility] | [facility] | Record | | | | | Nuclear Medicine | | | | | | [address] | | | | | | [place] [address] | | | | | | [phone] | | | +--------+ + + [...] Dr | | | | | | [place] [address] | | | | | | [phone] | | | | | | | | +--------+ + + + + | 12/04/ | Office | Cardiology | Cristian Mccoy, | | | 2017 | Visit | | MD [address] | | | | | | Dr [place], | | | | | | [place] [address] | | | | | | [phone] | | | | | | | | +--------+ + + + + | 01/08/ | Office | Cardiology | Paul Mccoyvirgilio, | | | 2017 | Visit | | MD [address] | | | | | | Dr [place], | | | | | | [place] [address] | | | | | | [phone] | | | | | | | [...] | Visit | | [address] | | | | | | [place] | | | | | | [address] | | | | | | | [...] | [address] | [place] [address] | | + + + + + in this encounter Visit Diagnoses + + | Diagnosis | + + | Pain | + + | Generalized pain | + +"
--- OUTSIDE RECORDS SUMMARY | ~2017-10-28 | XMS | Encounter Summary ---
Demographics + + + | Address | [address] | | | [place] [address] | + + + | Home Phone | | + + + | Preferred Language | Unknown | + + + | Marital Status | | + + + | Nondenominational Affiliation | 1028 | + + + | Race | Unknown | + + + | Ethnic Group | Unknown | + + + Author + + + | Author | [facility] | + + + | Organization | [facility] [facility] | + + + | Address | Unknown | + + + | Phone | Unavailable | + + + Support + + + + + | Name | Relationship | Address | Phone | + + + + + | Blossom Rose | ECON | [address] | | | | | [place] | | | | | [address] | | + + + + + | Message,Detailed | ECON | Unknown | | + + + + + Care Team Providers + +------+ + | Care Outsole Paraffiner Name | Role | Phone | + [...] [place] | | | | | | [address] | | | | | | [phone] | | | +--------+ + + + [...] | | | | | [place] [address] | | | | | | [phone] | | | | | | | | +--------+ + + + + | 12/04/ | Office | Cardiology | Cristian Mccoy, | | | 2017 | Visit | | [address] | | | | | | [address] [place], | | | | | | [place] [address] | | | | | | [phone] | | | | | | | | +--------+ + + + + | 01/08/ | Office | Cardiology | Cristian Mccoy, | | | 2017 | Visit | | MD [address] | | | | | | [address] [place], | | | | | | [place] [address] | | | | | | [phone] | | | | | | | [...] [place] | | | | | | [address] | | | | | | | | +--------+ + + + + as of this encounter Visit Diagnoses Not on filein this encounter"
--- OUTSIDE RECORDS SUMMARY | ~2017-10-28 | XMS | Encounter Summary ---
Demographics + + + | Address | [address] | | | [place] [address] | + + + | Home Phone [...] + | Author | [facility] | + + + | Organization | [facility] [employer] [facility] | + + + | Address | Unknown | + + + | Phone | Unavailable | + + + Support + + + + + | Name | Relationship | Address | Phone | + + + + + | Blossom Rose | ECON | [address] | | | | | [place] | | | | | [address] | | + + + + + | Message,Detailed | ECON | Unknown | | + + + + + Care Team Providers + +------+ + | Care Security Officer Name | Role | Phone [...] + + | 10/23/ | Hospital | [facility] | See, Medical | Pain | | 2018 | Encounter | [facility] | Record | | | | | RADIOLOGY [address] | | | | | | [address] | | | | | | [place] [address] | | | | | | [phone] | | | +--------+ + + + [...] by | | | | | | [id number] | mouth daily. | | | | [...] Dr | | | | | | [place] [address] | | | | | | [phone] | | | | | | | | +--------+ + + + + | 12/04/ | Office | Cardiology | Cristian Mccoy, | | | 2017 | Visit | | MD [address] | | | | | | Dr [place], | | | | | | [place] [address] | | | | | | [phone] | | | | | | | | +--------+ + + + + | 01/08/ | Office | Cardiology | Cristian Mccoy, | | | 2017 | Visit | | MD [address] | | | | | | [address] [place], | | | | | | [place] [address] | | | | | | [phone] | | | | | | | [...] [place] | | | | | | [address] | | | | | | | [...] RADIOLOGY | [address] | [place] [address] | | + + + + + in this encounter Visit Diagnoses + + | Diagnosis | + + | Pain | + + | Generalized pain | + +"
--- OUTSIDE RECORDS SUMMARY | ~2017-10-28 | XMS | Encounter Summary ---
Demographics + + + | Address | [address] | | | [place] [address] | + + + | Home Phone | | + + + | Preferred Language | Unknown | + + + | Marital Status | | + + + | Religion Affiliation | 1028 | + + + | Race | Unknown | + + + | Ethnic Group | Unknown | + + + Author + + + | Author | [facility] | + + + | Organization | [facility] | + + + | Address | Unknown | + + + | Phone | Unavailable | + + + Support + + + + + | Name | Relationship | Address | Phone | + + + + + | Blossom Rose | ECON | [address] | | | | | [place] | | | | | [address] | | + + + + + | Message,Detailed | ECON | Unknown | | + + + + + Care Team Providers + +------+ + | Care Staple Cutter Name | Role | Phone | + +------+ + | Nelson Laird MD | PCP | | + +------+ + Encounter Details +--------+ + + + + | Date | Type | Department | Care Team | Description | +--------+ + + + + | 10/24/ | Procedure | [facility] | | | | 2018 | [facility] | [facility] 8th | | | | | | Floor [place] | | | | | | [address] | | | | | | [place] [address] | | | | | | [phone] | | | +--------+ + + + [...] | | | | | [place] [address] | | | | | | [phone] | | | | | | | | +--------+ + + + + | 12/04/ | Office | Cardiology | Cristian Mccoy, | | | 2017 | Visit | | MD [address] | | | | | | [address] [place], | | | | | | [place] [address] | | | | | | [phone] | | | | | | | | +--------+ + + + + | 01/08/ | Office | Cardiology | Cristian Mccoy, | | | 2017 | Visit | | MD [address] | | | | | | [address] [place], | | | | | | [place] [address] | | | | | | [phone] | | | | | | | [...]
--- OUTSIDE RECORDS SUMMARY | ~2017-10-28 | XMS | Encounter Summary ---
Demographics + + + | Address | [address] | | | [place] [address] | + + + | Home Phone [...] + | Author | [facility] [employer] | + + + | Organization | [facility] [employer] [facility] | + + + | Address | Unknown | + + + | Phone | Unavailable | + + + Support + + + + + | Name | Relationship | Address | Phone | + + + + + | Blossom Rose | ECON | [address] | | | | | [place] | | | | | [address] | | + + + + + | Message,Detailed | ECON | Unknown | | + + + + + Care Team Providers + +------+ + | Care Signals Collection Technician Name | Role | Phone | [...] + | 10/08/ | Documentati | [facility] [place] | [place], | Labs Only | | 2018 | on Only | Cardiology [place] | [place] | | | | | [address] | | | | | | [place] | | | | | | [address] | | | | | | [phone] | | | +--------+ + + + [...] | | | | | | [place] [address] | | | | | | [phone] | | | | | | | | +--------+ + + + + | 12/04/ | Office | Cardiology | Cristian Mccoy, | | | 2017 | Visit | | MD [address] | | | | | | [address] [place], | | | | | | [place] [address] | | | | | | [phone] | | | | | | | | +--------+ + + + + | 01/08/ | Office | Cardiology | Cristian Mccoy, | | | 2017 | Visit | | MD [address] | | | | | | [address] [place], | | | | | | [place] [address] | | | | | | [phone] | | | | | | | [...]
--- OUTSIDE RECORDS SUMMARY | ~2017-10-28 | XMS | Encounter Summary ---
Demographics + + + | Address | [address] | | | [place] [address] | + + + | Home Phone | | + + + | Preferred Language | Unknown | + + + | Marital Status | | + + + | Anabaptist Affiliation | 1028 | + + + | Race | Unknown | + + + | Ethnic Group | Unknown | + + + Author + + + | Author | [facility] | + + + | Organization | [facility] [facility] | + + + | Address | Unknown | + + + | Phone | Unavailable | + + + Support + + + + + | Name | Relationship | Address | Phone | + + + + + | Blossom Rose | ECON | [address] | | | | | [place] | | | | | [address] | | + + + + + | Message,Detailed | ECON | Unknown | | + + + + + Care Team Providers + +------+ + | Care Medical Malpractice Paralegal Name | Role | Phone | + [...] [address] | | | | | | [place] [address] | | | | | | [phone] | | | +--------+ + + + [...] | | | | | [place] [address] | | | | | | [phone] | | | | | | | | +--------+ + + + + | 12/04/ | Office | Cardiology | Cristian Mccoy, | | | 2017 | Visit | | [address] | | | | | | [address] [place], | | | | | | [place] [address] | | | | | | [phone] | | | | | | | | +--------+ + + + + | 01/08/ | Office | Cardiology | Cristian Mccoy, | | | 2017 | Visit | | MD [address] | | | | | | [address] [place], | | | | | | [place] [address] | | | | | | [phone] | | | | | | | [...] | 2017 | Visit | | [address] | | | | | | [place] | | | | | | [address] | | | | | | | [...] [facility] | [address] | [place] [address] | | + + + + + in this encounter Visit Diagnoses + + | Diagnosis | + + | Pain | + + | Generalized pain | + +"
--- OUTSIDE RECORDS SUMMARY | ~2017-10-28 | XMS | Encounter Summary ---
Demographics + + + | Address | [address] | | | [place] [address] | + + + | Home Phone [...] | Author | [facility] | + + + | Organization | [facility] [employer] [facility] | + + + | Address | Unknown | + + + | Phone | Unavailable | + + + Support + + + + + | Name | Relationship | Address | Phone | + + + + + | Blossom Rose | ECON | [address] | | | | | [place] | | | | | [address] | | + + + + + | Message,Detailed | ECON | Unknown | | + + + + + Care Team Providers + +------+ + | Care Early Years Teacher Name | Role | Phone | + [...] + + | 10/16/ | Hospital | [facility] | See, Medical | Pain | | 2018 | Encounter | [facility] | Record | | | | | RADIOLOGY [address] | | | | | | [address] | | | | | | [place] [address] | | | | | | [phone] | | | +--------+ + + + [...] by | | | | | | [id number] | mouth daily. | | | | [...] | | | | | | [place] [address] | | | | | | [phone] | | | | | | | | +--------+ + + + + | 12/04/ | Office | Cardiology | Cristian Mccoy, | | | 2017 | Visit | | MD [address] | | | | | | Dr [place], | | | | | | [place] [address] | | | | | | [phone] | | | | | | | | +--------+ + + + + | 01/08/ | Office | Cardiology | HectorCristian wiggins, | | | 2017 | Visit | | MD [address] | | | | | | [address] [place], | | | | | | [place] [address] | | | | | | [phone] | | | | | | | [...] [place] | | | | | | [address] | | | | | | | [...] RADIOLOGY | [address] | [place] [address] | | + + + + + in this encounter Visit Diagnoses + + | Diagnosis | + + | Pain | + + | Generalized pain | + +"
--- OUTSIDE RECORDS SUMMARY | ~2017-10-28 | XMS | Clinical Summary ---
Demographics + + + | Address | [address] | | | [place] [address] | + + + | Home Phone | | + + + | Preferred Language | Unknown | + + + | Marital Status | | + + + | Orthodox Affiliation | 1028 | + + + | Race | Unknown | + + + | Ethnic Group | Unknown | + + + Author + + + | Author | [facility] | + + + | Organization | [facility] | + + + | Address | Unknown | + + + | Phone | Unavailable | + + + Support + + + + + | Name | Relationship | Address | Phone | + + + + + | Blossom Rose | ECON | [address] | | | | | [place] | | | | | [address] | | + + + + + | Message,Detailed | ECON | Unknown | | + + + + + Care Team Providers + +------+ + | Care Tax Agent Name | Role | Phone | [...] (See Comments) | Medium | 09/14/19 | PAYROLL EXAMINER | | | | | 14 | [...] | | | | Activ | | CGNTVSI-QYLXYWALD-XD | mouth daily. | | | | [...] ed | + + + +---------+------+------+-------+ | metoclopramide | Take 10 mg by mouth | | | | 07/2 | Disco | | (REGLAN) 10 MG | 4 (four) times daily | | | | 3/20 | ntinu | | tablet | before meals and | | | | 18 | ed | | | nightly. | | | | | | + + + +---------+------+------+-------+ | nystatin | Apply topically 2 | | | | 08/1 | Disco | | (MYCOSTATIN) cream | (two) times daily. | | | | 1/20 | ntinu | | | | | | | 18 | ed | + + + +---------+------+------+-------+ | | Inhale 1 puff into | | | | 07/2 | Disco | | fluticasone-salmeter | the lungs 2 (two) | | | | 3/20 | ntinu | | ol (ADVAIR) 500-50 | times daily. | | | | 18 | ed | | MCG/DOSE diskus | | | | | | | | inhaler | | | | | | | + + + +---------+------+------+-------+ | rivaroxaban | Take 20 mg by mouth | | | | 07/2 | Disco | | (XARELTO) 20 MG | daily with dinner. | | | | 3/20 | ntinu | | tablet | | | | | 18 | ed | + + + +---------+------+------+-------+ | methotrexate | Take 7 tablets by | 28 | 0 | 10/2 | 07/2 | Disco | | (TREXALL) 2.5 MG | mouth once a week. | tablet | | 10/04 | 3/20 | ntinu | | tablet | | | | 15 | 18 | ed | + + + +---------+------+------+-------+ | predniSONE | Take 10 mg by mouth | | | | 10/16 | Disco | | (DELTASONE) 2.5 MG | daily. Takes 2 5mg | | | | 04/06 | ntinu | | tabletIndications: | tablets every other | | | | 18 | ed | | Patient takes 10mg | day | | | | | | | daily | | | | | | | + + + +---------+------+------+-------+ | potassium citrate | Take 10 mEq by | | | | /2 | Disco | | (UROCIT-K) 10 MEQ | mouth. | | | | 3/20 | ntinu | | (1080 MG) SR tablet | | | | | 18 | ed | + + + +---------+------+------+-------+ | clindamycin | Take 150 mg by mouth | | | | 07/2 | Disco | | (CLEOCIN) 150 MG | as needed. | | | | 3/20 | ntinu | | capsule | | | | | 18 | ed | + + + +---------+------+------+-------+ | allopurinol | | | | 02/2 | 09/16 | Disco | | (ZYLOPRIM) 300 MG | | | | 06/04 | 06/04 | ntinu | | tablet | | | | 18 | 18 | ed | + + + +---------+------+------+-------+ | clopidogrel | Take 1 tablet by | 30 | 2 | 08/1 | 081 | Disco | | (PLAVIX) 75 MG | mouth daily. | tablet | | 05/07 | 04/06 | ntinu | | tablet | | | | 18 | 18 | ed | + + + +---------+------+------+-------+ | clopidogrel | Take 1 tablet by | 30 | 0 | 08/1 | 08/1 | Disco | | (PLAVIX) 75 MG | mouth daily. | tablet | | 20 | 20 | ntinu | | tablet | | | | 18 | 18 | ed | + + + +---------+------+------+-------+ | | Inhale 2 puffs into | 1 | 0 | 10/16 | 10/16 | Disco | | budesonide-formotero | the lungs 2 (two) | Inhaler | | 04/06 | 04/06 | ntinu | | l [...] | | tient | | | ID:German D | | | [id number] | | | [id number] | | | y.o. | | | [birth year]Admit | | | date: | | | 10/23/2017Dis | | | charge date | | | and time: | | | | | | 10/26/17Admi | | | tting | | | Physician: | | | Tameka Umaña | | | Dorianhirodolfo, | | | MD | | | [...] | | | FINDINGS: | | | Material Coordinator | | | demonstrate | | | [...] | | | cession: | | | [id number] | | | | | | | [...] | | obtained. | | | A 5-Peruvian | | | sheath was | | [...] | | aorta. A | | | 5-Peruvian | | | JL4 | | | [...] | done with a | | | 5-Peruvian | | | multipurpos | | | [...] | | done with | | | 5-Peruvian | | | AL1 | | | [...] | | ient Name: | | | GERMAN ROSE | | | Date of | | | : | | | 1945 | | | Accession: | | | [id number] | | | Performing | | | [...] | 2.29 cm | | | E-F Burnett: | | | 0.09 m/s | | [...] 0.00 m/s TV | | | Dec Burnett: | | | 3.93 | | | m/s2 TV Dec | | | Time: | | | 207.73 ms | | | TV E Ed: | | | 0.56 m/s | | | TV E/A | | | Ratio: | | | 69.55 | | | Diesel Pile Hammer Operator | | | : CM | | [...] | | transferred | | | to [facility] | | | Hospital | | | for further | | | workup and | | | treatment. | | | Hospital | | | course by | | | issues:#1 | | | non-ST | | | elevation | | | SC: Status | | | post | | [...] | | | [place], | | | [id number] | | | COURT, RM | | | [address] | | | n [place] | | | [phone] | | | [phone] | | | lm | | | [place], | | | [id number] | | | COURT, RM | | | [address] | | | n [place] | | | [phone] | | | [phone] 1 | | | weekMershed | | | [place], | | | [id number] | | | [address] | | | [place] | | | [place] | | | [place] | | | [phone] | | | [phone] 1 | | | weekSigned: | | | JUNIE | | | EDWARDI | | | 84723:21 PM | +---+ + +--------+ +---+ + [...] + | 10/15/ | Documentati | | Fabricio Hill | Billy (Stress test | | 2018 | on Only | | BRY Umaña | 10/14/17) | +--------+ +---+ + + | 10/08/ | Documentati | | Al[place] | Labs Only | | 2018 | on Only | | ELINOR Doran | | +--------+ +---+ + + | 10/07/ | Initial | | Cecilia Mccoy, | Encounter for annual | | 2017 | consult | | MD | health [...] whether | | | | | | hoopa or | | | | | | [...] rupture (HCC) | +--------+ +---+ + + | 07/31/ | Hospital | | See, Medical | Pain | | 2018 | Encounter | | Record | | +--------+ +---+ + + | 07/31/ | Ancillary | | See, Medical | Pain | | 2018 | Orders | | Record | | +--------+ +---+ + + from Last [...] | | | | | [place] [address] | | | | | | [phone] | | | | | | | | +--------+ + + + + | 12/04/ | Office | | Cecilia Mccoy, | | | 2017 | Visit | | MD Alayna Rajan | | | | | | Dr [address], | | | | | | [place] [address] | | | | | | [phone] | | | | | | | | +--------+ + + + + | 01/08/ | Office | | Cecilia Mccoy, | | | 2017 | Visit | | [address] | | | | | | [address], | | | | | | [place] [address] | | | | | | [phone] | | | | | | | [...] [place] | | | | | | [address] | | | | | | | [...] whether | | | | | | hoopa or | | | | | | [...] Results In - 10/26/2017 10:07 AM PDT GERMAN Sidhu AILYN years MaleXR | | CHEST 2 VIEW [...] NATHAN | [address] | [place] [address] | | + + + + + [...] | | | | | performed at [facility], [address] | | | | | [facility], | | | | | [place] [address] | | | | |MICRO | | | | |NORMAL PLT MORPH | | | | |Testing performed at [facility], [address] [facility], [place] [address] | | | | | | | | + + + + + + + | Specimen | + + | Blood | + + + + + + + | Performing | Address | City/State/Zipcode | Phone Number | | Organization | | | | + + + + + | [facility] | [address] | [place] [address] | [phone] | | LABORATORY | Blvd. | | [...] | | | | | performed at [facility], [address] | | | | | [facility], | | | | | [place] [address] | | | + + + + + + + | Specimen | + + | Blood | + + + + + + + | Performing | Address | City/State/Zipcode | Phone Number | | Organization | | | | + + + + + | [facility] | [address] | [place] [address] | [phone] | | LABORATORY | Blvd. | | | + + + + + Norm hilario (10/25/2017 2:43 PM) + + + + [...] | [facility] | | | performed at [facility], [address] | | LABORATORY | | | [facility] | | | | | [place] [address] | | | + + + + + + + | Specimen | + + | Blood | + + + + + + + | Performing | Address | City/State/Zipcode | Phone Number | | Organization | | | | + + + + + | [facility] | [address] [place] [address] | [place] [address] | [phone] | | LABORATORY | Blvd. | | | + + + + + Folate (10/25/2017 2:43 PM) + + + + + | Component | Value | Ref Range | Performed At | + + + + + | FOLATE | 18.6Comment: Testing | >5.4 ng/mL | [facility] | | | performed at [facility], [address] | | LABORATORY | | | [facility], | | | | | [place] [address] | | | + + + + + + + | Specimen | + + | Blood | + + + + + + + | Performing | Address | City/State/Zipcode | Phone Number | | Organization | | | | + + + + + | [facility] | [address] | [place] [address] | [phone] | | LABORATORY | Blvd. | | | + + + + + Ferritin (10/25/2017 2:43 PM) + + + + + | Component | Value | Ref Range | Performed At | + + + + + | FERRITIN | 156Comment: Testing | 11 - 450 ng/mL | [facility] | | | performed at [facility], [address] | | LABORATORY | | | [facility], | | | | | [place] [address] | | | + + + + + + + | Specimen | + + | Blood | + + + + + + + | Performing | Address | City/State/Zipcode | Phone Number | | Organization | | | | + + + + + | [facility] | [address] | [place] [address] | [phone] | | LABORATORY | Blvd. | | | + + + + + Vitamin B12 (10/25/2017 2:43 PM) + + + + + | Component | Value | Ref Range | Performed At | + + + + + | VITAMIN B12 | 292Comment: Testing | 254 - 1,320 pg/mL | [facility] | | | performed at [facility], [address] | | LABORATORY | | | [address], | | | | | [place] [address] | | | + + + + + + + | Specimen | + + | Blood | + + + + + + + | Performing | Address | City/State/Zipcode | Phone Number | | Organization | | | | + + + + + | [facility] | [address] | [place] [address] | [phone] | | LABORATORY | Blvd. | | | + + + + + CL guidance vascular access US (10/24/2017 8:12 PM) + + + | Narrative | Performed At | + + + | This Point of Care (POC) ultrasound image has been reviewed and | [facility] | | interpreted by the physician identified as the performing physician in | RADIOLOGY | | the associated interpretation and report. | | + + + + + + + + | Performing | Address | City/State/Zipcode | Phone Number | | Organization | | | | + + + + + | [facility] | [address] | [place] [address] | | + + + + + CL coronary angio with grafts (10/24/2017 8:09 PM) + + + | Narrative | Performed At | + + + | [facility] | | | RADIOLOGY | | DATE [...] needle, right femoral access was obtained. A 5-Peruvian | | | sheath was introduced without any difficulty. A 0.035 wire was | | | used and advanced under fluoroscopic guidance into the ascending | | | aorta. A 5-Peruvian JL4 catheter was used and advanced over [...] over the wire was done with a 5-Peruvian | | | multipurpose catheter that selectively engaged the right SVG to RCA | | | graft. Multiple views were obtained. Exchange over the wire was | | | done with 5-Peruvian AL1 catheter that selectively engaged the SVG [...] disease. 2. Patent SVG to RCA and GIRER to LAD. 3. Occluded SVG to | [...] Note | + + | Diogo Harris In - 10/25/2017 6:29 AM PDT | [...] needle, right femoral access was obtained. A 5-Peruvian sheath | | was introduced without any difficulty. A 0.035 wire was used and advanced | | under fluoroscopic guidance into the ascending aorta. A 5-Peruvian JL4 | | catheter was used and [...] over the wire was done with a 5-Peruvian | | multipurpose catheter that selectively engaged the right SVG to RCA graft. | | Multiple views were obtained. Exchange over the wire was done with | | 5-Peruvian AL1 catheter that selectively engaged the SVG [...] [facility] | [address] | [place] [address] | | + + + + + [...] | + + + + + | [facility] | [address] | [place] [address] | | + + + + + [...] Earlier chest | | | radiograph. FINDINGS: Material Coordinator demonstrates cardiomegaly, sternal | | | wires [...] patient exposure.PRIOR EXAMINATION: Earlier chest | | radiograph.FINDINGS:Material Coordinator demonstrates cardiomegaly, sternal wires and dense reticular [...] [facility] | [address] | [place] [address] | | + + + + + [...] GERMAN ROSE Date of : 1945 | [facility] | | Performing Physician: Cecilia Mccoy | [...] LA/Ao: 1.22 D-E Excursion: 2.29 cm E-F Burnett: 0.09 | | | m/s AV maxP.18 [...] 0.00 | | | m/s TV Dec Burnett: 3.93 m/s2 TV Dec Time: 207.73 ms TV E | | | Ed: 0.56 m/s TV E/A Ratio: 69.55 Diesel Pile Hammer Operator: CM | | | Authenticated by: Cecilia Mccoy Report Date/Time: 10-24-2017 13:7:33 | | | | | + + + + + | Procedure Note | + + | Steven, Rad Results In - 10/24/2017 1:10 PM PDT Patient Name: Raegan ROSE of : | | 1945ccession: [id number] Physician: Cecilia | | [place] INDICATIONS------ | [...] mlLAESV Index (A-L): 41.48 ml/m2LAAs A2C: 17.05 [id number] A-L A2C: 48.56 | | mlLALs A2C: 5.08 cmLAAs A4C: 26.95 qm4XOAYL A-L A4C: 95.07 mlLALs A4C: 6.48 cmAo | | Diam: 4.03 cmAV Cusp: 1.91 cmLA Diam: 4.92 cmLA/Ao: 1.22 D-E Excursion: 2.29 | | cmE-F Burnett: 0.09 m/Leigha maxP.18 mmHgAV meanP.51 mmHgAV Vmax: 1.59 m/Leigha | | Vmean: 1.23 m/Leigha VTI: 28.06 cmAVA Vmax: 3.26 cm2AVA (VTI): 3.35 go0VTBW Vmax: | | 0.00 cm2/m2AVAI (VTI): 0.00 [...] 3.04 m/sTV A Ed: 0.00 m/sTV Dec Burnett: 3.93 m/s2TV | | Dec Time: 207.73 msTV E Ed: 0.56 m/sTV E/A Ratio: 69.55 Diesel Pile Hammer Operator: | | CMAuthenticated by: Cecilia [facility] HospitalReport Date/Time: 10-24-2017 13:7:33IMPRESSION:1. The | | left [...] | |D-E Excursion: 2.29 cm | |E-F Burnett: 0.09 m/s | |AV maxP.18 mmHg | [...] A Ed: 0.00 m/s | |TV Dec Burnett: 3.93 m/s2 | |TV Dec Time: 207.73 ms | |TV E Ed: 0.56 m/s | |TV E/A Ratio: 69.55 | | | |Diesel Pile Hammer Operator: CM | |Authenticated by: Cecilia Mccoy | [...] | + + + + + | [facility] | [address] | [place] [address] | | + + + + + [...] | ms | [facility] | | (Bezdiya) | | | | + + + + + | Calculated R [place] | -81 | degrees | [facility] E[facility] | + + + + + | Calculated T [place] | 5 | degrees | [facility] E[facility] [...] | + + + + + | [facility] | [address] | [place] [address] | | + + + + + Troponin I (10/24/2017 5:51 AM)Only the most recent of 3 results within the time period is included. + + + + + | Component | Value | Ref Range | Performed At | + + + + + | TROPONIN I | 1.28 ()Comment: 0.00 | 0.00 - 0.10 ng/mL | [facility] | | | to 0.10 CONSISTENT [...] | | | | CRITERIA FOR ACUTE SC | | | | | CALLED NURSING UNITREAD | | | | | BACK RESULTS | | | | | VERIFIEDFABRICIO Lynch IN 8RP | | | | | AT 0658 BY TDTesting | | | | | performed at [facility];[address] | | | | | [address];[place] | | | | | [address] | | | + + + + + + + | Specimen | + + | Blood | + + + + + + + | Performing | Address | City/State/Zipcode | Phone Number | | Organization | | | | + + + + + | [facility] | [address] | [place] [address] | | + + + + + [...] + + + | [facility] | [address] | [place] [address] | [phone] | | LABORATORY | Blvd[address] | | | + + + + + Protime-INR (10/24/2017 1:57 AM) + + + + + | Component | Value | Ref Range | Performed At | + + + + + | INR | 1.2Comment: REFERENCE | | [facility] | | | RANGE:0.9 - | [...] | | | | | performed at [facility];[address] | | | | | [address];[place] | | | | | [address] | | | + + + + + + + | Specimen | + + | Blood | + + + + + + + | Performing | Address | City/State/Zipcode | Phone Number | | Organization | | | | + + + + + | [facility] | [address] | [place] [address] | | + + + + + TSH (10/24/2017 1:57 AM) + + + + + | Component | Value | Ref Range | Performed At | + + + + + | TSH | 4.150Comment: Testing | 0.450 - 5.100 uIU/mL | [facility] | | | performed at [facility], [address] | | LABORATORY | | | [address], | | | | | [place] [address] | | | + + + + + + + | Specimen | + + | Blood | + + + + + + + | Performing | Address | City/State/Zipcode | Phone Number | | Organization | | | | + + + + + | [facility] | [address] [place] [address] | [place] [address] | [phone] | | LABORATORY | [address]vd[address] | | | + + + + + Phosphorus (10/24/2017 1:57 AM) + + + + + | Component | Value | Ref Range | Performed At | + + + + + | PHOSPHORUS | 3.4Comment: Testing | 2.3 - 4.8 mg/dL | [facility] | | | performed at [facility], [facility] [address] | | LABORATORY | | | [facility], | | | | | [place] [address] | | | + + + + + + + | Specimen | + + | Blood | + + + + + + + | Performing | Address | City/State/Zipcode | Phone Number | | Organization | | | | + + + + + | [facility] | [address] | [place] [address] | [phone] | | LABORATORY | [address]vd. | | | + + + + + Magnesium (10/24/2017 1:57 AM) + + + + + | Component | Value | Ref Range | Performed At | + + + + + | MAGNESIUM | 1.8Comment: Testing | 1.7 - 2.4 mg/dL | [facility] | | | performed at [facility], [address] | | LABORATORY | | | [facility], | | | | | [place] [address] | | | + + + + + + + | Specimen | + + | Blood | + + + + + + + | Performing | Address | City/State/Zipcode | Phone Number | | Organization | | | | + + + + + | [facility] | [address] | [place] [address] | [phone] | | LABORATORY | Blvd. | | [...] | [facility] | | | performed at [facility], [address] | | LABORATORY | | | [address], | | | | | [place] [address] | | | + + + + + + + | Specimen | + + | Blood | + + + + + + + | Performing | Address | City/State/Zipcode | Phone Number | | Organization | | | | + + + + + | [facility] | [address] | [place] [address] | [phone] | | LABORATORY | Blvd. | | [...] 1.3 | 0.70 - 1.30 mg/dL | [facility] | | | | | LABORATORY | + + + + + | BUN/CREAT | 11 | | [facility] | | | | | LABORATORY | + + + + + | CALCIUM | 8.6 | 8.5 - 10.5 mg/dL | [facility] [...] the | | | | | MDRD IDMO traceable | | | | | equation.Testing | | | | | performed at [facility], [address] | | | | | [facility], | | | | | [place] [address] | | | + + + + + + + | Specimen | + + | Blood | + + + + + + + | Performing | Address | City/State/Zipcode | Phone Number | | Organization | | | | + + + + + | [facility] | [address] | [place] [address] | [phone] | | LABORATORY | Blvd. | | | + + + + + Septic Lactic Acid (10/23/2017 11:50 PM) + + + + + | Component | Value | Ref Range | Performed At | + + + + + | LACTIC ACID | 1.1Comment: Testing | 0.4 - 2.0 mmol/L | [facility] | | | performed at [facility];[address];[place], [place] | | | | | [address] | | | + + + + + + + + + + | Performing | Address | City/State/Zipcode | Phone Number | | Organization | | | | + + + + + | [facility] | [address] | [place] [address] | | + + + + + [...] | + + + + + | [facility] | [address] | [place] [address] | | + + + + + [...] | [facility] | [address] | [place] [address] | | + + + + + CTA abdomen pelvis with IV contrast (07/31/2017 [...] | + + + + + | [facility] | [address] | [place] [address] | | + + + + + [...] +------+-------+ + | MEDICARE | MEDICA | [id number] | | | [address] | | | RE | | | | [place] [phone] | | | IP-OP | | | | | + +--------+ +------+-------+ + | [employer]ARE | UNITED | [id number] | | | | | | | [...] | | al/Arvind | | 1945 | [phone] | [place] | | | irish | | | [address]: | [phone] | | | | | | | | | | | | | [phone] | | | | | | [address]65 | | + +--------+ +--------+ + +
--- OUTSIDE RECORDS SUMMARY | ~2017-10-28 | XMS | Clinical Summary ---
Demographics + + + | Address | [address] | | | [place] [address] | + + + | Home Phone | | + + + | Preferred Language | Unknown | + + + | Marital Status | | + + + | Temple Affiliation | Unknown | + + + | Race | Unknown | + + + | Ethnic Group | Unknown | + + + Author + + + | Author | [facility] | | | and [place] | + + + | Organization | [facility] | | | and [place] | [...] [place] | | | | | [address] | | + + + + + Care Team Providers + +------+ + | Care Contractor Buyer Name | Role | Phone | + [...] +--------+ +---------+ | MEDICARE | MEDICA | [id number] | Medica | [phone] | | | RE | | re | [phone] | | | | PART A | | | | | | | AND B | | | | | + +--------+ +--------+ +---------+ | AARP | AARP | [id number] | Indemn | [phone] | | | MDCR | | [...] | [place] | | | [phone] | [phone] | + +--------+ +--------+ + +
--- OUTSIDE RECORDS SUMMARY | ~2017-10-28 | XMS | Clinical Summary ---
Demographics + + + | Address | [address] | | | [place] [address] | + + + | Home Phone | | + + + | Preferred Language | Unknown | + + + | Marital Status | | + + + | Scientologist Affiliation | 1028 | + + + | Race | Unknown | + + + | Ethnic Group | Unknown | + + + Author + + + | Author | [facility] | + + + | Organization | [facility] [employer] [facility] | + + + | Address | Unknown | + + + | Phone | Unavailable | + + + Support + + + + + | Name | Relationship | Address | Phone | + + + + + | Blossom Rose | ECON | [address] | | | | | [place] | | | | | [address] | | + + + + + | Message,Detailed | ECON | Unknown | | + + + + + Care Team Providers + +------+ + | Care Video Games Storywriter Name | Role | Phone | + [...] (See Comments) | Medium | 09/14/19 | SAFE DEPOSIT ATTENDANT | | | | | 15 | [...] | | | | Activ | | [id number] | mouth daily. | | | | [...] | | ID:German D | | | [id number] | | | [id number] | | | [...] | | | FINDINGS: | | | Dance Therapist | | | demonstrate | | | [...] | | | cession: | | | [id number] | | | | | | | [...] | | obtained. | | | A 5-Slovak | | | sheath was | | [...] | | aorta. A | | | 5-Slovak | | | JL4 | | | [...] | done with a | | | 5-Slovak | | | multipurpos | | | [...] | | done with | | | 5-Slovak | | | AL1 | | | [...] | | | Accession: | | | [id number] | | | Performing | | | [...] | 2.29 cm | | | E-F [place]: | | | 0.09 m/s | | [...] 0.00 m/s TV | | | Dec [place]: | | | 3.93 | | | m/s2 TV Dec | | | Time: | | | 207.73 ms | | | TV E Ed: | | | 0.56 m/s | | | TV E/A | | | Ratio: | | | 69.55 | | | Household Refrigerator Mechanic | | | : CM | | [...] | | transferred | | | to [facility] | | | Hospital | | | for further | | | workup and | | | treatment. | | | Hospital | | | course by | | | issues:#1 | | | non-ST | | | elevation | | | NM: Status | | | post | | [...] | | | [place], | | | [id number] | | | COURT, RM | | | [phone] | | | n [place] | | | [phone] | | | [phone] | | | lm | | | [place], | | | [id number] | | | COURT, RM | | | [address] | | | n [place] | | | [phone] | | | [phone] | | | weekMershed | | | [place], | | | [id number] | | | [address] | | | [place] | | | [place] | | | [place] | | | [phone] | | | [phone] 1 | | | weekSigned: | | | JUNIE | | | EDWARDI | | | 46372:21 PM | +---+ + +--------+ +---+ + [...] | | | | | [place] [address] | | | | | | [phone] | | | | | | | | +--------+ + + + + | 12/04/ | Office | | Cecilia Mccoy, | | | 2017 | Visit | | MD Alayna Rajan | | | | | | Dr [place], | | | | | | [place] [address] | | | | | | [phone] | | | | | | | | +--------+ + + + + | 01/08/ | Office | | Cecilia Mccoy, | | | 2017 | Visit | | [address] | | | | | | [address] [place], | | | | | | [place] [address] | | | | | | [phone] | | | | | | | [...] [place] | | | | | | [address] | | | | | | | [...] - 10/26/2017 10:07 AM PDT GERMAN Sidhu IALYN years MaleXR | | CHEST 2 VIEW [...] [address] | [place] [address] | | + + + + + [...] | | | | | performed at [facility], [address] | | | | | [facility], | | | | | [place] [address] | | | | |MICRO | | | | |NORMAL PLT MORPH | | | | |Testing performed at [facility], [address] [facility], [place] [address] | | | | | | | | + + + + + + + | Specimen | + + | Blood | + + + + + + + | Performing | Address | City/State/Zipcode | Phone Number | | Organization | | | | + + + + + | [facility] | [address] | [place] [address] | [phone] | | LABORATORY | Blvd. | | [...] | | | | | performed at [facility], [address] | | | | | [facility], | | | | | [place] [address] | | | + + + + + + + | Specimen | + + | Blood | + + + + + + + | Performing | Address | City/State/Zipcode | Phone Number | | Organization | | | | + + + + + | [facility] | [address] | [place] [address] | [phone] | | LABORATORY | Blvd. | | [...] | [facility] | | | performed at [facility], [address] | | LABORATORY | | | [facility] | | | | | [place] [address] | | | + + + + + + + | Specimen | + + | Blood | + + + + + + + | Performing | Address | City/State/Zipcode | Phone Number | | Organization | | | | + + + + + | [facility] | [address] [place] [address] | [place] [address] | [phone] | | LABORATORY | Blvd. | | | + + + + + Folate (10/25/2017 2:43 PM) + + + + + | Component | Value | Ref Range | Performed At | + + + + + | FOLATE | 18.6Comment: Testing | >5.4 ng/mL | [facility] | | | performed at [facility], [address] | | LABORATORY | | | [facility], | | | | | [place] [address] | | | + + + + + + + | Specimen | + + | Blood | + + + + + + + | Performing | Address | City/State/Zipcode | Phone Number | | Organization | | | | + + + + + | [facility] | [address] | [place] [address] | [phone] | | LABORATORY | Blvd. | | | + + + + + Ferritin (10/25/2017 2:43 PM) + + + + + | Component | Value | Ref Range | Performed At | + + + + + | FERRITIN | 156Comment: Testing | 11 - 450 ng/mL | [facility] | | | performed at [facility], [address] | | LABORATORY | | | [facility], | | | | | [place] [address] | | | + + + + + + + | Specimen | + + | Blood | + + + + + + + | Performing | Address | City/State/Zipcode | Phone Number | | Organization | | | | + + + + + | [facility] | [address] | [place] [address] | [phone] | | LABORATORY | Blvd. | | | + + + + + Vitamin B12 (10/25/2017 2:43 PM) + + + + + | Component | Value | Ref Range | Performed At | + + + + + | VITAMIN B12 | 292Comment: Testing | 254 - 1,320 pg/mL | [facility] | | | performed at [facility], [address] | | LABORATORY | | | [address], | | | | | [place] [address] | | | + + + + + + + | Specimen | + + | Blood | + + + + + + + | Performing | Address | City/State/Zipcode | Phone Number | | Organization | | | | + + + + + | [facility] | [address] | [place] [address] | [phone] | | LABORATORY | Blvd. | | [...] + | [facility] | [address] | [place] [address] | | + + + + + [...] needle, right femoral access was obtained. A 5-Slovak | | | sheath was introduced without any difficulty. A 0.035 wire was | | | used and advanced under fluoroscopic guidance into the ascending | | | aorta. A 5-Slovak JL4 catheter was used and advanced over [...] over the wire was done with a 5-Slovak | | | multipurpose catheter that selectively engaged the right SVG to RCA | | | graft. Multiple views were obtained. Exchange over the wire was | | | done with 5-Slovak AL1 catheter that selectively engaged the SVG [...] needle, right femoral access was obtained. A 5-Slovak sheath | | was introduced without any difficulty. A 0.035 wire was used and advanced | | under fluoroscopic guidance into the ascending aorta. A 5-Slovak JL4 | | catheter was used and [...] over the wire was done with a 5-Slovak | | multipurpose catheter that selectively engaged the right SVG to RCA graft. | | Multiple views were obtained. Exchange over the wire was done with | | 5-Slovak AL1 catheter that selectively engaged the SVG [...] [facility] | [address] | [place] [address] | | + + + + + [...] | + + + + + | [facility] | [address] | [place] [address] | | + + + + + [...] Earlier chest | | | radiograph. FINDINGS: Dance Therapist demonstrates cardiomegaly, sternal | | | wires [...] patient exposure.PRIOR EXAMINATION: Earlier chest | | radiograph.FINDINGS:Dance Therapist demonstrates cardiomegaly, sternal wires and dense reticular [...] [facility] | [address] | [place] [address] | | + + + + + [...] LA/Ao: 1.22 D-E Ex[place]ion: 2.29 cm E-F [place]: 0.09 | | | m/s AV maxP.18 [...] 0.00 | | | m/s TV Dec [place]: 3.93 m/s2 TV Dec Time: 207.73 ms TV E | | | Ed: 0.56 m/s TV E/A Ratio: 69.55 Household Refrigerator Mechanic: CM | | | Authenticated by: Cecilia Mccoy Report Date/Time: 10-24-2017 13:7:33 | | | | | + + + + + | Procedure Note | + + | Steven, Rad Results In - 10/24/2017 1:10 PM PDT Patient Name: Raegan ROSE of : | | 1944ccession: [id number] Physician: Cecilia | | [place] INDICATIONS------ | [...] mlLAESV Index (A-L): 41.48 ml/m2LAAs A2C: 17.05 [id number] A-L A2C: 48.56 | | mlLALs A2C: 5.08 cmLAAs A4C: 26.95 [id number] A-L A4C: 95.07 mlLALs A4C: 6.48 cmAo | | Diam: 4.03 cmAV Cusp: 1.91 cmLA Diam: 4.92 cmLA/Ao: 1.22 D-E Excursion: 2.29 | | cmE-F [place]: 0.09 m/[place] maxP.18 mmHgAV meanP.51 mmHgAV Vmax: 1.59 m/[place] | | Vmean: 1.23 m/[place] VTI: 28.06 cmAVA Vmax: 3.26 cm2AVA (VTI): 3.35 [id number] Vmax: | | 0.00 cm2/m2AVAI (VTI): 0.00 [...] 3.04 m/sTV A Ed: 0.00 m/sTV Dec [place]: 3.93 m/s2TV | | Dec Time: 207.73 msTV E Ed: 0.56 m/sTV E/A Ratio: 69.55 Household Refrigerator Mechanic: | | CMAuthenticated by: Cecilia [facility] Center[facility] Date/Time: 10-24-2017 13:7:33IMPRESSION:1. The | [...] | |D-E [place]: 2.29 cm | |E-F [place]: 0.09 m/s | |AV maxP.18 mmHg | [...] A Ed: 0.00 m/s | |TV Dec [place]: 3.93 m/s2 | |TV Dec Time: 207.73 ms | |TV E Ed: 0.56 m/s | |TV E/A Ratio: 69.55 | | | |Household Refrigerator Mechanic: CM | |Authenticated by: Cecilia Mccoy | [...] | + + + + + | [facility] | [address] | [place] [address] | | + + + + + [...] + + + + | Calculated R [place] | -81 | degrees | [facility] | + + + + + | Calculated T [place] | 5 | degrees | [facility] EKG [...] | + + + + + | [facility] | [address] | [place] [address] | | + + + + + Troponin I (10/24/2017 5:51 AM)Only the most recent of 3 results within the time period is included. + + + + + | Component | Value | Ref Range | Performed At | + + + + + | TROPONIN I | 1.28 ()Comment: 0.00 | 0.00 - 0.10 ng/mL | [facility] | | | to 0.10 [...] | | | | CRITERIA FOR ACUTE NM | | | | | CALLED NURSING UNITREAD | | | | | BACK RESULTS | | | | | VERIFIEDFABRICIO [place] IN 8RP | | | | | AT 0658 BY TDTesting | | | | | performed at [facility];[address] | | | | | [address];[place] | | | | | [address] | | | + + + + + + + | Specimen | + + | Blood | + + + + + + + | Performing | Address | City/State/Zipcode | Phone Number | | Organization | | | | + + + + + | [facility] | [address] | [place] [address] | | + + + + + [...] + + + | [facility] | [address] | [place] [address] | [phone] | | LABORATORY | Blvd. | | | + + + + + Protime-INR (10/24/2017 1:57 AM) + + + + + | Component | Value | Ref Range | Performed At | + + + + + | INR | 1.2Comment: REFERENCE | | [facility] | | | RANGE:0.9 - [...] | | | | | performed at [facility];[address] | | | | | [address];[place] | | | | | [address] | | | + + + + + + + | Specimen | + + | Blood | + + + + + + + | Performing | Address | City/State/Zipcode | Phone Number | | Organization | | | | + + + + + | [facility] | [address] | [place] [address] | | + + + + + TSH (10/24/2017 1:57 AM) + + + + + | Component | Value | Ref Range | Performed At | + + + + + | TSH | 4.150Comment: Testing | 0.450 - 5.100 uIU/mL | [facility] | | | performed at [facility], [address] | | LABORATORY | | | [address], | | | | | [place] [address] | | | + + + + + + + | Specimen | + + | Blood | + + + + + + + | Performing | Address | City/State/Zipcode | Phone Number | | Organization | | | | + + + + + | [facility] | [address] [place] [address] | [place] [address] | [phone] | | LABORATORY | Blvd. | | | + + + + + Phosphorus (10/24/2017 1:57 AM) + + + + + | Component | Value | Ref Range | Performed At | + + + + + | PHOSPHORUS | 3.4Comment: Testing | 2.3 - 4.8 mg/dL | [facility] | | | performed at [facility], [facility] [address] | | LABORATORY | | | [facility], | | | | | [place] [address] | | | + + + + + + + | Specimen | + + | Blood | + + + + + + + | Performing | Address | City/State/Zipcode | Phone Number | | Organization | | | | + + + + + | [facility] | [address] | [place] [address] | [phone] | | LABORATORY | Blvd. | | | + + + + + Magnesium (10/24/2017 1:57 AM) + + + + + | Component | Value | Ref Range | Performed At | + + + + + | MAGNESIUM | 1.8Comment: Testing | 1.7 - 2.4 mg/dL | [facility] | | | performed at [facility], [address] | | LABORATORY | | | [facility], | | | | | [place] [address] | | | + + + + + + + | Specimen | + + | Blood | + + + + + + + | Performing | Address | City/State/Zipcode | Phone Number | | Organization | | | | + + + + + | [facility] | [address] | [place] [address] | [phone] | | LABORATORY | Blvd. | | [...] | [facility] | | | performed at [facility], [address] | | LABORATORY | | | [address], | | | | | [place] [address] | | | + + + + + + + | Specimen | + + | Blood | + + + + + + + | Performing | Address | City/State/Zipcode | Phone Number | | Organization | | | | + + + + + | [facility] | [address] | [place] [address] | [phone] | | LABORATORY | Blvd. | | [...] the | | | | | MDRD IDMA traceable | | | | | equation.Testing | | | | | performed at [facility], [address] | | | | | [facility], | | | | | [place] [address] | | | + + + + + + + | Specimen | + + | Blood | + + + + + + + | Performing | Address | City/State/Zipcode | Phone Number | | Organization | | | | + + + + + | [facility] | [address] | [place] [address] | [phone] | | LABORATORY | Blvd. | | | + + + + + Septic Lactic Acid (10/23/2017 11:50 PM) + + + + + | Component | Value | Ref Range | Performed At | + + + + + | LACTIC ACID | 1.1Comment: Testing | 0.4 - 2.0 mmol/L | [facility] | | | performed at [facility];[address];[place], [place] | | | | | [address] | | | + + + + + + + + + + | Performing | Address | City/State/Zipcode | Phone Number | | Organization | | | | + + + + + | [facility] | [address] | [place] [address] | | + + + + + [...] | + + + + + | [facility] | [address] | [place] [address] | | + + + + + [...] [facility] | [address] | [place] [address] | | + + + + + [...] | + + + + + | [facility] | [address] | [place] [address] | | + + + + + [...] +------+-------+ + | MEDICARE | MEDICA | [id number] | | | [address] | | | RE | | | | [place] [address] | | | IP-OP | | | | | + +--------+ +------+-------+ + | UNITED HEALTHCARE | UNITED | [id number] | | | | | | | [...] Self | [birth year] | Work: | [address] | | | al/Arvind | | 1945 | [phone] | [place] | | | [place] | | | [address]: | [address] | | | | | | | | | | | | | [phone] | | | | | | 5865 | | + +--------+ +--------+ + +
--- OUTSIDE RECORDS SUMMARY | ~2017-10-28 | XMS | Encounter Summary ---
Demographics + + + | Address | [address] | | | [place] [address] | + + + | Home Phone | | + + + | Preferred Language | Unknown | + + + | Marital Status | | + + + | Adventist Affiliation | 1028 | + + + | Race | Unknown | + + + | Ethnic Group | Unknown | + + + Author + + + | Author | [facility] | + + + | Organization | [facility] [employer] [facility] | + + + | Address | Unknown | + + + | Phone | Unavailable | + + + Support + + + + + | Name | Relationship | Address | Phone | + + + + + | Blossom Rose | ECON | [address] | | | | | [place] | | | | | [address] | | + + + + + | Message,Detailed | ECON | Unknown | | + + + + + Care Team Providers + +------+ + | Care Attending Anesthesiologist Name | Role | Phone | + [...] + | 10/08/ | Documentati | ELAINE Mccormick | [place], | Labs Only | | 2018 | on Only | [facility] [place] | [place] | | | | | [address] | | | | | | [place] | | | | | | [address] | | | | | | [phone] | | | +--------+ + + + [...] | | | | | | [place] [address] | | | | | | [phone] | | | | | | | | +--------+ + + + + | 12/04/ | Office | Cardiology | Cristian Mccoy, | | | 2017 | Visit | | MD [address] | | | | | | [address] [place], | | | | | | [place] [address] | | | | | | [phone] | | | | | | | | +--------+ + + + + | 01/08/ | Office | Cardiology | Cristian Mccoy, | | | 2017 | Visit | | MD [address] | | | | | | [address] [place], | | | | | | [place] [address] | | | | | | [phone] | | | | | | | [...]
--- OUTSIDE RECORDS SUMMARY | ~2017-10-28 | XMS | Clinical Summary ---
Demographics + + + | Address | [address] | | | [place] [address] | + + + | Home Phone [...] Team Providers + +------+ + | Care Irrigator Head Name | Role | Phone | + +------+ + | Maycol Knutson MD | PP | | + +------+ + Source Comments ARIANNA is fully live on both [facility] and [facility] InPatient.[facility] Allergies No Known Allergies Current Medications + [...] | re | [address] | [place] [address] | | | B | | | [...] | [place] | | | 5865 | [address] | + +--------+ +--------+ + +
--- OUTSIDE RECORDS SUMMARY | ~2017-10-28 | XMS | Encounter Summary ---
Demographics + + + | Address | [address] | | | [place] [address] | + + + | Home Phone | | + + + | Preferred Language | Unknown | + + + | Marital Status | | + + + | Pentecostalism Affiliation | 1028 | + + + | Race | Unknown | + + + | Ethnic Group | Unknown | + + + Author + + + | Author | [facility] | + + + | Organization | [facility] | + + + | Address | Unknown | + + + | Phone | Unavailable | + + + Support + + + + + | Name | Relationship | Address | Phone | + + + + + | Blossom Rose | ECON | [address] | | | | | [place] | | | | | [address] | | + + + + + | Message,Detailed | ECON | Unknown | | + + + + + Care Team Providers + +------+ + | Care Seismic Prospecting Observer Name | Role | Phone | + [...] | | | | | | [address] [facility] | | | | | | [place] [address] | | | | | | [phone] | | | +--------+ + + + [...] by | | | | | | [id number] | mouth daily. | | | | [...] Dr | | | | | | [place] [address] | | | | | | [phone] | | | | | | | | +--------+ + + + + | 12/04/ | Office | Cardiology | Cristian Mccoy, | | | 2017 | Visit | | MD [address] | | | | | | [address] [place], | | | | | | [place] [address] | | | | | | [phone] | | | | | | | | +--------+ + + + + | 01/08/ | Office | Cardiology | Cristian Mccoy, | | | 2017 | Visit | | MD [address] | | | | | | [address] [place], | | | | | | [place] [address] | | | | | | [phone] | | | | | | | [...] [place] | | | | | | [address] | | | | | | | [...] | + + + + + | [facility] | [address] | [place] [address] | | + + + + + in this encounter Visit Diagnoses + + | Diagnosis | + + | Pain | + + | Generalized pain | + +"
--- OUTSIDE RECORDS SUMMARY | ~2017-10-28 | XMS | Clinical Summary ---
Demographics + + + | Address | [address] | | | [place] [address] | + + + | Home Phone | | + + + | Preferred Language | Unknown | + + + | Marital Status | | + + + | Christianity Affiliation | Unknown | + + + | Race | Unknown | + + + | Ethnic Group | Unknown | + + + Author + + + | Author | [facility] | | | and [place] | + + + | Organization | [facility] | | | and [place] | [...] [place] | | | | | [address] | | + + + + + Care Team Providers + +------+ + | Care French Weaver Name | Role | Phone | + [...] +--------+ +---------+ | MEDICARE | MEDICA | [id number] | Medica | [phone] | | | RE | | re | [phone] | | | | PART A | | | | | | | AND B | | | | | + +--------+ +--------+ +---------+ | AARP | AARP | [id number] | Indemn | [phone] | | | MDCR | | [...] | [place] | | | 5865 | [address] | + +--------+ +--------+ + +
--- OUTSIDE RECORDS SUMMARY | ~2017-10-28 | XMS | Encounter Summary ---
Demographics + + + | Address | [address] | | | [place] [address] | + + + | Home Phone | | + + + | Preferred Language | Unknown | + + + | Marital Status | | + + + | Mosque Affiliation | 1028 | + + + | Race | Unknown | + + + | Ethnic Group | Unknown | + + + Author + + + | Author | [facility] | + + + | Organization | [facility] | + + + | Address | Unknown | + + + | Phone | Unavailable | + + + Support + + + + + | Name | Relationship | Address | Phone | + + + + + | Blossom Rose | ECON | [address] | | | | | [place] | | | | | [address] | | + + + + + | Message,Detailed | ECON | Unknown | | + + + + + Care Team Providers + +------+ + | Care Advanced Practice Nurse Psychotherapist Name | Role | Phone | + +------+ + | Nelson Laird MD | PCP | | + +------+ + Encounter Details +--------+ + + + + | Date | Type | Department | Care Team | Description | +--------+ + + + + | 10/24/ | Procedure | [facility] | | | | 2018 | [facility] | [facility] [address]th | | | | | | Floor [place] | | | | | | [address] | | | | | | [place] [address] | | | | | | [phone] | | | +--------+ + + + [...] | | | | | [place] [address] | | | | | | [phone] | | | | | | | | +--------+ + + + + | 12/04/ | Office | Cardiology | Cristian Mccoy, | | | 2017 | Visit | | MD [address] | | | | | | [address] [place], | | | | | | [place] [address] | | | | | | [phone] | | | | | | | | +--------+ + + + + | 01/08/ | Office | Cardiology | Cristian Mccoy, | | | 2017 | Visit | | MD [address] | | | | | | [address] [place], | | | | | | [place] [address] | | | | | | [phone] | | | | | | | [...]
--- OUTSIDE RECORDS SUMMARY | ~2017-10-28 | XMS | Encounter Summary ---
Demographics + + + | Address | [address] | | | [place] [address] | + + + | Home Phone | | + + + | Preferred Language | Unknown | + + + | Marital Status | | + + + | Lutheran Affiliation | 1028 | + + + | Race | Unknown | + + + | Ethnic Group | Unknown | + + + Author + + + | Author | [facility] | + + + | Organization | [facility] | + + + | Address | Unknown | + + + | Phone | Unavailable | + + + Support + + + + + | Name | Relationship | Address | Phone | + + + + + | Blossom Rose | ECON | [address] | | | | | [place] | | | | | [address] | | + + + + + | Message,Detailed | ECON | Unknown | | + + + + + Care Team Providers + +------+ + | Care Menagerie Superintendent Name | Role | Phone | + [...] + + + + | 07/31/ | Ancillary | [facility] | See, Medical | Pain | | 2018 | [facility] | [facility] | Record | | | | | [address] | | | | | | [place] [address] | | | | | | [phone] | | | +--------+ + + + [...] | | | | | [place] [address] | | | | | | [phone] | | | | | | | | +--------+ + + + + | 12/04/ | Office | Cardiology | Cristian Mccoy, | | | 2017 | Visit | | MD Alayna Rajan | | | | | | [address], | | | | | | [place] [address] | | | | | | [phone] | | | | | | | | +--------+ + + + + | 01/08/ | Office | Cardiology | Cristian Mccoy, | | | 2017 | Visit | | MD [address] | | | | | | [address], | | | | | | [place] [address] | | | | | | [phone] | | | | | | | [...] [place] | | | | | | [address] | | | | | | | | +--------+ + + + + as of this encounter Results CTA abdomen pelvis with [...] [facility] | [address] | [place] [address] | | + + + + + in this encounter Visit Diagnoses + + | Diagnosis | + + | Pain | + + | Generalized pain | + +"
--- OUTSIDE RECORDS SUMMARY | ~2017-10-28 | XMS | Encounter Summary ---
Demographics + + + | Address | [address] | | | [place] [address] | + + + | Home Phone | | + + + | Preferred Language | Unknown | + + + | Marital Status | | + + + | Taoism Affiliation | 1028 | + + + | Race | Unknown | + + + | Ethnic Group | Unknown | + + + Author + + + | Author | [facility] | + + + | Organization | [facility] | + + + | Address | Unknown | + + + | Phone | Unavailable | + + + Support + + + + + | Name | Relationship | Address | Phone | + + + + + | Blossom Rose | ECON | [address] | | | | | [place] | | | | | [address] | | + + + + + | Message,Detailed | ECON | Unknown | | + + + + + Care Team Providers + +------+ + | Care National Van Owner Operator Name | Role | Phone | [...] | | | | | | | [address] | | | | | | | Phone: | | | | | | | [phone] | | | | | | | Fax: | | | | | | | [phone] | | + + + + + [...] | | | | cardiovascul | | [phone] Phone: | | | | | ar disease) | | [phone] | | | | | Essential | [...] + + | 10/23/ | Hospital | [facility] | Tameka Duke | Dysphagia, | | 2018 - | Encounter | [facility] 8th | MD Leeroy [address] | unspecified type | | | | Floor [facility] | Blvd [place] | (Primary Dx); | | 10/26/ | | [address] | [address] | Thoracic aortic | | 2018 | | [place] [address] | | aneurysm without | | | | [phone] | Junie Delvalle MD | rupture ([facility]); ASCVD | | | | | [address] | (arteriosclerotic | | | | | [place] [address] | cardiovascular | | | | | [phone] | disease); Chronic | | | | | | atrial fibrillation | | | | | | ([facility]); Essential | | | | | | [...] from lali jacobo. Patient ID: Pavithra Rose [id number] 72 y.o. 1945 Admit date: 10/23/2017 Discharge [...] radiologist report and is used for image [facility] only Ct Head Without Contrast Result Date: 10/23/2017 This is a non-reportable procedure without a radiologist report and is used for image [facility] only Ct Chest Without Contrast Result Date: 10/24/2017 HISTORY: 72 years year-old Male, hemoptysis. TECHNIQUE: CT through the chest. Noncontrast e xamination. Automatic dose adjustment to minimize patient exposure. PRIOR EXAMINATION: Gomeri er chest radiograph. FINDINGS: Varnish Maker Helper demonstrates cardiomegaly, sternal wires and dense reti [...] radiologist report and is used for image [facility] EHR only Cl Coronary Angio With Grafts Result [...] needle, right femoral access was obtained. A 5-[place] Citizen sheath was introduced without any difficulty. A 0.035 wire was used and advanced under fluoroscopic gu idance into the ascending aorta. A 5-[place] Citizen JL4 catheter was used and advanced over [...] the wire was don e with a 5-[place] Citizen multipurpose catheter that selectively engaged the right SVG to RCA graft. Multiple views were obtained. Exchange over the wire was done with 5-[place] Citizen AL1 catheter t hat selectively engaged the [...] LA/Ao: 1.22 D-E Excursion: 2.29 cm E-F Wagoner: 0.09 m/s AV maxP.18 mmHg AV meanP.51 [...] TV A Ed: 0.00 m/s TV Dec Wagoner: 3.93 m/s2 TV Dec Time: 207.73 ms TV E Ed: 0.56 m/s TV E /A Ratio: 69.55 Hull Drafter: ADAM Authenticated by: Cecilia Mccoy Report Date/Time: [...] and GI bleed who we nt to [facility] with productive cough, shortness of breath and hemoptysis seconda ry to aspiration pneumonia and found to have positive troponin around 1 hence he was transf erred to [facility] for further workup and treatment. Hospital course by issues: #1 non-ST elevation [place]: Status post cardiac cath which showed triple-vessel disease and rec ommend medical management only. Patient started on Plavix, atorvastatin, patient allergic t o beta barbara has not initiated and patient currently asymptomatic. 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 Nelson Laird MD [address] [facility], [address] [place] [address] Nelson Laird MD [address] [facility], [address] [place] [address] In 1 week Cecilia Mccoy MD [address] [place] [address] In 1 week Signed: JUNIE DELVALLE 10/26/2017 12:21 PMin this encounter Discharge Instructions The following attachments cannot be sent through Care Everywhere.Amoxicillin; Clavulanic Ac id tablets (Belarusian)Clopidogrel tablets (Belarusian)in this encounter Medications at Time of Discharge [...] by | | | | | | [id number] | mouth daily. | | | | [...] may be different fro m the original. [facility] Service: Cardiology Progress Note Name of Napper Grinder: Cecilia Mccoy MD I have seen the [...] tablet 40 mg, 40 mg, Oral, Nightly, Taemka Duke MD, 40 m g at 10/25/17 [...] not amenable to PCI. 2. Non-ST elevation [place]. 3. Dysphagia. 4. Hemoptysis minimal, improved. 5. Chronic atrial fibrillation. On rate control strategy and anticoagulation. CHADSVASc sco re of 4. 6. AAA. 7. Coronary artery disease S/[place] [address]. 8. RBBB. 9. Hypertension blood pressures controlled. [...] Hospitalist Progress Note Pavithra Rose 72 y.o. [id number] 8108/[id number] male [facility] Day: LOS: 2 days Patient Summary: [...] cardiac stress test study who went to [facility] with ongoing productive cough, shortness of breath and hemoptysis, where he was found to hav e positive troponin and chest x-ray showed pneumonia and patient was transferred to [facility] for further workup and treatment. The [...] Anaphylaxis Diltiazem Edema Gabapentin Other (See Comments) CHECKOUT SUPERVISOR Imipramine Other (See Comments) Urinary retention Metoprolol [...] Procedure Component Value Units Date/Time Iron panel [[id number]] Collected: 10/25/171442 Specimen: Blood Updated: 10/25/171449 Vitamin B12 [[id number]] Collected: 10/25/171442 Specimen: Blood Updated: 08/10/18 1450 Ferritin [[id number]] Collected: 10/25/17 1443 Specimen: Blood Updated: 10/25/17 1450 Folate [[id number]] Collected: 10/25/17 1443 Specimen: Blood Updated: 10/25/17 1450 CBC W/Auto Diff (Reflex to Manual) [[id number]] (Abnormal) Collected: 10/25/17 1000 Specimen: Blood Updated: [...] 0.04 K/uL MORPHOLOGY 2+ Comprehensive metabolic panel [[id number]] (Abnormal) Collected: 10/25/17 1000 Specimen: Blood Updated: [...] U/L EGFR 59 (L) mL/min/1.73m2 Sputum culture [[id number]] Collected: 10/24/17 0400 Specimen: Sputum from Sputum [...] WILL BE HELD 48 HOURS. Troponin I [[id number]] (Abnormal) Collected: 10/24/17550 Specimen: Blood Updated: 10/24/17657 TROPONIN I 1.28 (HH) ng/mL CBC W/Auto Diff (Reflex to Manual) [[id number]] (Abnormal) Collected: 10/24/17156 Specimen: Blood Updated: 10/24/17436 [...] K/uL Platelet Estimate ADEQUATE MORPHOLOGY 2+ Magnesium [[id number]] Collected: 10/24/17156 Specimen: Blood Updated: 10/24/17433 MAGNESIUM 1.8 mg/dL Phosphorus [[id number]] Collected: 10/24/17156 Specimen: Blood Updated: 10/24/17433 PHOSPHORUS 3.4 mg/dL TSH [[id number]] Collected: 10/24/17156 Specimen: Blood Updated: 10/24/17433 TSH 4.150 uIU/mL Basic metabolic panel [[id number]] (Abnormal) Collected: 10/24/17156 Specimen: Blood Updated: 10/24/17433 SODIUM 138 mmol/L POTASSIUM 4.3 mmol/L CHLORIDE 104 mmol/L CO2 24 mmol/L ANION GAP AGAP 14 mmol/L GLUCOSE 75 mg/dL BUN 14 mg/dL CREATININE 1.3 mg/dL BUN/CREAT 11 CALCIUM 8.6 mg/dL EGFR 54 (L) mL/min/1.73m2 Lipid panel [[id number]] (Abnormal) Collected: 10/24/17156 Specimen: Blood Updated: 10/24/17 0434 CHOLESTEROL 103 mg/dL Triglycerides 116 mg/dL HDL CHOL 24 (L) mg/dL LDL CALC 56 mg/dL Troponin I [[id number]] (Abnormal) Collected: 10/24/17156 Specimen: Blood Updated: 10/24/17 0251 TROPONIN I 1.72 (HH) ng/mL Protime-INR [[id number]] Collected: 10/24/17156 Specimen: Blood Updated: 10/24/17 022 INR 1.2 Septic Lactic Acid [[id number]] Collected: 10/23/172349 Updated: 10/24/17 0023 LACTIC ACID 1.1 mmol/L Troponin I [[id number]] (Abnormal) Collected: 10/23/172211 Specimen: Blood Updated: 10/23/172253 [...] radiologist report and is used for image [facility] only Ct Head Without Contrast Result Date: 10/23/2017 This is a non-reportable procedure without a radiologist report and is used for image [facility] only Ct Chest Without Contrast Result Date: 10/24/2017 HISTORY: 72 years year-old Male, hemoptysis. TECHNIQUE: CT through the chest. Noncontrast e xamination. Automatic dose adjustment to minimize patient exposure. PRIOR EXAMINATION: Earli er chest radiograph. FINDINGS: Varnish Maker Helper demonstrates cardiomegaly, sternal wires and dense reti [...] radiologist report and is used for image [facility] EHR only Cl Coronary Angio With Grafts Result [...] needle, right femoral access was obtained. A 5-[place] Citizen sheath was introduced without any difficulty. A 0.035 wire was used and advanced under fluoroscopic gu idance into the ascending aorta. A 5-[place] Citizen JL4 catheter was used and advanced over [...] the wire was don e with a 5-[place] Citizen multipurpose catheter that selectively engaged the right SVG to RCA graft. Multiple views were obtained. Exchange over the wire was done with 5-[place] Citizen AL1 catheter t hat selectively engaged the [...] LA/Ao: 1.22 D-E Excursion: 2.29 cm E-F Wagoner: 0.09 m/s AV maxP.18 mmHg AV meanP.51 [...] TV A Ed: 0.00 m/s TV Dec Wagoner: 3.93 m/s2 TV Dec Time: 207.73 ms TV E Ed: 0.56 m/s TV E /A Ratio: 69.55 Hull Drafter: ADAM Authenticated by: Cecilia Youngsaint clair Report Date/Time: 018 13:7:33 1. The left [...] minutes. JUNIE DELVALLE MD 10/25/2017 Ariadne El CCC-ELECTRIC MOTOR AND GENERATOR ASSEMBLER - 10/25/2017 2:22 PM PDTBEDSIDE SWALLOW ELECTRIC MOTOR AND GENERATOR ASSEMBLER Last Visit ELECTRIC MOTOR AND GENERATOR ASSEMBLER Received On: 10/25/17 Requires ELECTRIC MOTOR AND GENERATOR ASSEMBLER Follow Up: Yes Recommendations Liquids Consistency Recommendations: [...] are progressing unless otherwise indicated. Dysphagia Goals Nursing Home Goals: Safe/efficient oral intake Pt will [...] evidence of learning [] Refused Ariadne El CCC-ELECTRIC MOTOR AND GENERATOR ASSEMBLER Cecilia Mccoy MD - 10/25/2017 5:46 AM PDTFormatting of th is note may be different from the original. [facility] Service: Cardiology Progress Note Name of Napper Grinder: Cecilia Mccoy MD I have seen the [...] not amenable to PCI. 2. Non-ST elevation [place]. 3. Dysphagia. 4. Hemoptysis minimal, improved. 5. Chronic atrial fibrillation. On rate control strategy and anticoagulation. CHADSVASc sco re of 4. 6. AAA. 7. Coronary artery disease S/[place] 22059. 8. RBBB. 9. Hypertension blood pressures controlled. [...] Code Mershed AlSamara, MD 10/25/2017 Luca Toussaint, [facility] - 10/24/2017 8:30 PM PDTNote ccl 49ml/min meds reviewed pharmacy will follow [facility] 2030AlsCecilia wiggins MD - 10/24/2017 6:[address] [facility] Service: Cardiology Pre-Operative History & Physical [...] more than one vascular access site, , [place], CVA, bleedin g (including the need for [...] Hospitalist Progress Note Pavithra Rose 72 y.o. [id number] 8108/8108-1 male [facility] Day: LOS: 1 day Patient Summary: [...] cardiac stress test study who went to [facility] with ongoing productive cough, shortness of breath and hemoptysis, where he was found to hav e positive troponin and chest x-ray showed pneumonia and patient was transferred to [facility] for further workup [...] Anaphylaxis Diltiazem Edema Gabapentin Other (See Comments) CHECKOUT SUPERVISOR Imipramine Other (See Comments) Urinary retention Metoprolol [...] Procedure Component Value Units Date/Time Sputum culture [[id number]] Collected: 10/24/17 0400 Specimen: Sputum from Sputum Updated: 10/24/17 0705 Troponin I [[id number]] (Abnormal) Collected: 10/24/17 0551 Specimen: Blood Updated: 10/24/17 0658 TROPONIN I 1.28 (HH) ng/mL CBC W/Auto Diff (Reflex to Manual) [[id number]] (Abnormal) Collected: 10/24/17156 Specimen: Blood Updated: 10/24/17436 [...] K/uL Platelet Estimate ADEQUATE MORPHOLOGY 2+ Magnesium [[id number]] Collected: 10/24/17156 Specimen: Blood Updated: 10/24/17433 MAGNESIUM 1.8 mg/dL Phosphorus [[id number]] Collected: 10/24/17156 Specimen: Blood Updated: 10/24/17433 PHOSPHORUS 3.4 mg/dL TSH [[id number]] Collected: 10/24/17156 Specimen: Blood Updated: 10/24/17433 TSH 4.150 uIU/mL Basic metabolic panel [[id number]] (Abnormal) Collected: 10/24/17156 Specimen: Blood Updated: 10/24/17433 SODIUM 138 mmol/L POTASSIUM 4.3 mmol/L CHLORIDE 104 mmol/L CO2 24 mmol/L ANION GAP AGAP 14 mmol/L GLUCOSE 75 mg/dL BUN 14 mg/dL CREATININE 1.3 mg/dL BUN/CREAT 11 CALCIUM 8.6 mg/dL EGFR 54 (L) mL/min/1.73m2 Lipid panel [[id number]] (Abnormal) Collected: 10/24/17156 Specimen: Blood Updated: 10/24/17433 CHOLESTEROL 103 mg/dL Triglycerides 116 mg/dL HDL CHOL 24 (L) mg/dL LDL CALC 56 mg/dL Troponin I [[id number]] (Abnormal) Collected: 10/24/17156 Specimen: Blood Updated: 10/24/17 025 TROPONIN I 1.72 (HH) ng/mL Protime-INR [[id number]] Collected: 08/09/18 0157 Specimen: Blood Updated: 10/24/17 0221 INR 1.2 Septic Lactic Acid [[id number]] Collected: 10/23/17 2350 Updated: 10/24/17 0023 LACTIC ACID 1.1 mmol/L Troponin I [[id number]] (Abnormal) Collected: 10/23/172 Specimen: Blood Updated: 10/23/17 [...] radiologist report and is used for image [facility] only Ct Head Without Contrast Result Date: 10/23/2017 This is a non-reportable procedure without a radiologist report and is used for image [facility] only Ct Chest Without Contrast Result Date: 10/24/2017 HISTORY: 72 years year-old Male, hemoptysis. TECHNIQUE: CT through the chest. Noncontrast e xamination. Automatic dose adjustment to minimize patient exposure. PRIOR EXAMINATION: Earli er chest radiograph. FINDINGS: Varnish Maker Helper demonstrates cardiomegaly, sternal wires and dense reti [...] LA/Ao: 1.22 D-E Excursion: 2.29 cm E-F Wagoner: 0.09 m/s AV maxP.18 mmHg AV meanP.51 [...] TV A Ed: 0.00 m/s TV Dec Wagoner: 3.93 m/s2 TV Dec Time: 207.73 ms TV E Ed: 0.56 m/s TV E /A Ratio: 69.55 Hull Drafter: ADAM Authenticated by: Cecilia Mccoy Report Date/Time: [...] worse and case discussed with Dr. Mccoy, blasting helper, who is in agreement and will ke [...] hasn't eaten in two days. 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 Type of Food / Meals NPO Nutrition-Focused Physical Findings Overall Appearance Reports he appears much thinner and clothes have not been fitting him as well. Body Language Pt very pleasant. Extremities, Muscles and Bones Bruising Digestive System (Mouth to Rectum) ELECTRIC MOTOR AND GENERATOR ASSEMBLER following. Anthropometrics Weight change Admit wt: 71.8 [...] Estimated Energy Needs Total Energy Estimated Needs 8773-4600 kcal/day Method for Estimating Needs 25-30 kcal/kg at 71.8 kg admit wt Estimated Protein Needs Total Protein Estimated Needs 86-108 g/day Method for Estimating Needs 1.2-1.5 g/kg Recommendations Recommended energy needs ADAT to cardiac with textures/consistencies per ELECTRIC MOTOR AND GENERATOR ASSEMBLER. Upon diet adv ancement, encourage increased energy [...] Moderate Lucy Doshi, RD 10/24/2017 Helen Soto [facility] - 10/23/2017 10:07 PM PDTFormatting of this [...] | | | | | [place] [address] | | | | | | [phone] | | | | | | | | +--------+ + + + + | 12/04/ | Office | Cardiology | Cecilia Mccoy, | | | 2017 | Visit | | MD Alayna Rajan | | | | | | Dr [address], | | | | | | [place] [address] | | | | | | [phone] | | | | | | | | +--------+ + + + + | 01/08/ | Office | Cardiology | Cecliia Mccoy, | | | 2017 | Visit | | MD [address] | | | | | | [address], | | | | | | [place] [address] | | | | | | [phone] | | | | | | | [...] | | | | | | [place] | | | | | | [address] | | | | | | | [...] | + + + + + | [facility] | [address] | [place] [address] | | + + + + + [...] 8.5 | 8.5 - 10.5 mg/dL | [facility] | | | | | [facility]OR[facility] | + + + + + | TOTAL PROTEIN | 5.5 (L) | 6.3 - 8.2 g/dL | [facility] | | | | | [facility] | [...] the | | | | | MDRD IDID traceable | | | | | equation.Testing | | | | | performed at [facility], [address] | | | | | [facility], | | | | | [place] [address] | | | + + + + + + + | Specimen | + + | Blood | + + + + + + + | Performing | Address | City/State/Zipcode | Phone Number | | Organization | | | | + + + + + | [facility] | [address] [facility] [facility] | [place] [address] | [phone] | | LABORATORY | [address] | | [...] | | | | | performed at [facility], [address] | | | | | [facility], | | | | | [place] [address] | | | | |MICRO | | | | |NORMAL PLT MORPH | | | | |Testing performed at [facility], [address] [place] [address] | | | | | | | | + + + + + + + | Specimen | + + | Blood | + + + + + + + | Performing | Address | City/State/Zipcode | Phone Number | | Organization | | | | + + + + + | [facility] | [address] [facility] [facility] | [place] [address] | [phone] | | LABORATORY | [address]vd[address] | | | + + + + + Folate (10/25/2017 2:43 PM) + + + + + | Component | Value | Ref Range | Performed At | + + + + + | FOLATE | 18.6Comment: Testing | >5.4 ng/mL | [facility] | | | performed at [facility], [address] | | LABORATORY | | | [facility], | | | | | [place] [address] | | | + + + + + + + | Specimen | + + | Blood | + + + + + + + | Performing | Address | City/State/Zipcode | Phone Number | | Organization | | | | + + + + + | [facility] | [address] [facility] | [place] [address] | [phone] | | LABORATORY | [address] | | | + + + + + Ferritin (10/25/2017 2:43 PM) + + + + + | Component | Value | Ref Range | Performed At | + + + + + | FERRITIN | 156Comment: Testing | 11 - 450 ng/mL | [facility] | | | performed at [facility], [address] | | LABORATORY | | | [address] [facility], | | | | | [place] [address] | | | + + + + + + + | Specimen | + + | Blood | + + + + + + + | Performing | Address | City/State/Zipcode | Phone Number | | Organization | | | | + + + + + | [facility] | [address] [facility] [facility] [facility] | [place] [address] | [phone] | | LABORATORY | [address] | | | + + + + + Vitamin B12 (10/25/2017 2:43 PM) + + + + + | Component | Value | Ref Range | Performed At | + + + + + | VITAMIN B12 | 292Comment: Testing | 254 - 1,320 pg/mL | [facility] | | | performed at [facility], [address] | | LABORATORY | | | [facility], | | | | | [place] [address] | | | + + + + + + + | Specimen | + + | Blood | + + + + + + + | Performing | Address | City/State/Zipcode | Phone Number | | Organization | | | | + + + + + | [facility] | [address] [facility] [facility] | [place] [address] | [phone] | | LABORATORY | [address] | | [...] | [facility] | | | performed at [facility], [address] | | LABORATORY | | | [address], | | | | | [place] [address] | | | + + + + + + + | Specimen | + + | Blood | + + + + + + + | Performing | Address | City/State/Zipcode | Phone Number | | Organization | | | | + + + + + | [facility] | [address] | [place] [address] | [phone] | | LABORATORY | [address] | | [...] | | | | | performed at [facility], [address] | | | | | [facility], | | | | | [place] [address] | | | + + + + + + + | Specimen | + + | Blood | + + + + + + + | Performing | Address | City/State/Zipcode | Phone Number | | Organization | | | | + + + + + | [facility] | [address] [facility] | [place] [address] | [phone] | | LABORATORY | [address] | | [...] | | | | | performed at [facility], [address] | | | | | [facility], | | | | | [place] [address] | | | | |ANISO | | | | |NORMAL PLT MORPH | | | | |Testing performed at [facility], [facility] [place] [address] | | | | | | | | + + + + + + + | Specimen | + + | Blood | + + + + + + + | Performing | Address | City/State/Zipcode | Phone Number | | Organization | | | | + + + + + | [facility] | [address] [facility] [facility] | [place] [address] | [phone] | | LABORATORY | [address] | | [...] | + + + + + | [facility] | [address] | [place] [address] | | + + + + + CL coronary angio with grafts (10/24/2017 8:09 PM) + + + | Narrative | Performed At | + + + | | [facility] | | | RADIOLOGY | | [...] needle, right femoral access was obtained. A 5-[place] Citizen | | | sheath was introduced without any difficulty. A 0.035 wire was | | | used and advanced under fluoroscopic guidance into the ascending | | | aorta. A 5-[place] Citizen JL4 catheter was used and advanced over [...] over the wire was done with a 5-[place] Citizen | | | multipurpose catheter that selectively engaged the right SVG to RCA | | | graft. Multiple views were obtained. Exchange over the wire was | | | done with 5-[place] Citizen AL1 catheter that selectively engaged the SVG [...] needle, right femoral access was obtained. A 5-[place] Citizen sheath | | was introduced without any difficulty. A 0.035 wire was used and advanced | | under fluoroscopic guidance into the ascending aorta. A 5-[place] Citizen JL4 | | catheter was used and [...] over the wire was done with a 5-[place] Citizen | | multipurpose catheter that selectively engaged the right SVG to RCA graft. | | Multiple views were obtained. Exchange over the wire was done with | | 5-[place] Citizen AL1 catheter that selectively engaged the SVG [...] [facility] | [address] | [place] [address] | | + + + + + [...] | + + + + + | [facility] | [address] | [place] [address] | | + + + + + [...] Earlier chest | | | radiograph. FINDINGS: Varnish Maker Helper demonstrates cardiomegaly, sternal | | | wires [...] patient exposure.PRIOR EXAMINATION: Earlier chest | | radiograph.FINDINGS:Varnish Maker Helper demonstrates cardiomegaly, sternal wires and dense reticular [...] [facility] | [address] | [place] [address] | | + + + + + [...] [facility] | [address] | [facility] [address] | | + + + + + [...] PAVITHRA ROSE Date of : 1945 | [facility] | | Performing Physician: Cecilia Mccoy [...] LA/Ao: 1.22 D-E Excursion: 2.29 cm E-F Wagoner: 0.09 | | | m/s AV maxP.18 [...] 0.00 | | | m/s TV Dec Wagoner: 3.93 m/s2 TV Dec Time: 207.73 ms TV E | | | Ed: 0.56 m/s TV E/A Ratio: 69.55 Hull Drafter: CM | | | Authenticated by: Cecilia [facility] Report Date/Time: 10-24-2017 13:7:33 | | | | | + + + + + | Procedure Note | + + | Diogo Harris Results In - 10/24/2017 1:10 PM PDT Patient Name: Raegan ROSE of : | | 1945ccession: [id number] Physician: Cecilia | | Alsamara INDICATIONS------ | [...] mlLAESV Index (A-L): 41.48 ml/m2LAAs A2C: 17.05 [id number] A-L A2C: 48.56 | | mlLALs A2C: 5.08 cmLAAs A4C: 26.95 [id number] A-L A4C: 95.07 mlLALs A4C: 6.48 cmAo | | Diam: 4.03 cmAV Cusp: 1.91 cmLA Diam: 4.92 cmLA/Ao: 1.22 D-E Excursion: 2.29 | | cmE-F Wagoner: 0.09 m/Leigha maxP.18 mmHgAV meanP.51 mmHgAV Vmax: 1.59 m/Leigha | | Vmean: 1.23 m/Leigha VTI: 28.06 cmAVA Vmax: 3.26 cm2AVA (VTI): 3.35 [id number] Vmax: | | 0.00 cm2/m2AVAI (VTI): 0.00 [...] 3.04 m/sTV A Ed: 0.00 m/sTV Dec Wagoner: 3.93 m/s2TV | | Dec Time: 207.73 msTV E Ed: 0.56 m/sTV E/A Ratio: 69.55 Hull Drafter: | | CMAuthenticated by: Cecilia Vencor HospitalReport Date/Time: 10-24-2017 13:7:33IMPRESSION:1. The | | [...] | |D-E Excursion: 2.29 cm | |E-F Wagoner: 0.09 m/s | |AV maxP.18 mmHg | [...] A Ed: 0.00 m/s | |TV Dec Wagoner: 3.93 m/s2 | |TV Dec Time: 207.73 ms | |TV E Ed: 0.56 m/s | |TV E/A Ratio: 69.55 | | | |Hull Drafter: CM | |Authenticated by: Cecilia Mccoy | [...] | + + + + + | [facility] | [address] | [place] [address] | | + + + + + [...] QTC Calculation | 451 | ms | [facility] EKG | | (Bezet) | | | | + + + + + | Calculated R [place] | -81 | degrees | [facility] EKG | + + + + + | Calculated T [place] | 5 | degrees | [facility] EKG [...] + + + + + | [facility] E[facility] | [address] | [place] [address] | | + + + + + Troponin I (10/24/2017 5:51 AM) + + + + + | Component | Value | Ref Range | Performed At | + + + + + | TROPONIN I | 1.28 ()Comment: 0.00 | 0.00 - 0.10 ng/mL | [facility] | | | to [...] | | | | CRITERIA FOR ACUTE [place] | | | | | CALLED NURSING UNITREAD | | | | | BACK RESULTS | | | | | VERIFIEDFABRICIO Lynch IN 8RP | | | | | AT 0658 BY TDTesting | | | | | performed at [facility];[address] | | | | [address];[place], [place] | | | | | [address] | | | + + + + + + + | Specimen | + + | Blood | + + + + + + + | Performing | Address | City/State/Zipcode | Phone Number | | Organization | | | | + + + + + | [facility] | [address] | [place] [address] | | + + + + + [...] + + + | [facility] | [address] [facility] | [place] [address] | [phone] | | LABORATORY | [address] | | [...] | | | | | performed at [facility];[address] | | | | | [address];[place] | | | | | [address] | | | + + + + + + + | Specimen | + + | Blood | + + + + + + + | Performing | Address | City/State/Zipcode | Phone Number | | Organization | | | | + + + + + | [facility] | [address] | [place] [address] | | + + + + + Troponin I (10/24/2017 1:57 AM) + + + + + | Component | Value | Ref Range | Performed At | + + + + + | TROPONIN I | 1.72 ()Comment: 0.00 | 0.00 - 0.10 ng/mL | [facility] | | | to [...] | | | | CRITERIA FOR ACUTE [place] | | | | | CALLED NURSING UNITREAD | | | | | BACK RESULTS | | | | | REENA Rodríguez IN 8RP | | | | | AT [address]Testing performed | | | | | at [facility];[address] [facility] [address] | | | | | [facility];[place] [address] | | | + + + + + + + | Specimen | + + | Blood | + + + + + + + | Performing | Address | City/State/Zipcode | Phone Number | | Organization | | | | + + + + + | [facility] | [address] | [facility] [address] | | + + + + + TSH (10/24/2017 1:57 AM) + + + + + | Component | Value | Ref Range | Performed At | + + + + + | TSH | 4.150Comment: Testing | 0.450 - 5.100 uIU/mL | [facility] | | | performed at [facility], [address] | | LABORATORY | | | [address], | | | | | [place] [address] | | | + + + + + + + | Specimen | + + | Blood | + + + + + + + | Performing | Address | City/State/Zipcode | Phone Number | | Organization | | | | + + + + + | [facility] | [address] [facility] | [place] [address] | [phone] | | LABORATORY | [address] | | [...] | [facility] | | | performed at [facility], [address] | | LABORATORY | | | [address], | | | | | [place] [address] | | | + + + + + + + | Specimen | + + | Blood | + + + + + + + | Performing | Address | City/State/Zipcode | Phone Number | | Organization | | | | + + + + + | [facility] | [address] [facility] | [place] [address] | [phone] | | LABORATORY | [address] | | | + + + + + Phosphorus (10/24/2017 1:57 AM) + + + + + | Component | Value | Ref Range | Performed At | + + + + + | PHOSPHORUS | 3.4Comment: Testing | 2.3 - 4.8 mg/dL | [facility] | | | performed at [facility], [address] | | LABORATORY | | | [address], | | | | | [place] [address] | | | + + + + + + + | Specimen | + + | Blood | + + + + + + + | Performing | Address | City/State/Zipcode | Phone Number | | Organization | | | | + + + + + | [facility] | [address] [facility] | [place] [address] | [phone] | | LABORATORY | [address] | | | + + + + + Magnesium (10/24/2017 1:57 AM) + + + + + | Component | Value | Ref Range | Performed At | + + + + + | MAGNESIUM | 1.8Comment: Testing | 1.7 - 2.4 mg/dL | [facility] | | | performed at [facility], [address] | | LABORATORY | | | [address], | | | | | [place] [address] | | | + + + + + + + | Specimen | + + | Blood | + + + + + + + | Performing | Address | City/State/Zipcode | Phone Number | | Organization | | | | + + + + + | [facility] | [address] | [place] [address] | [phone] | | LABORATORY | [address]vd[address] | | [...] 14 | 5 - 20 mmol/L | [facility] | | | | | LABORATORY | [...] 1.3 | 0.70 - 1.30 mg/dL | [facility] | | | | | LABORATORY | + + + + + | BUN/CREAT | 11 | | [facility] | | | | | LABORATORY | + + + + + | CALCIUM | 8.6 | 8.5 - 10.5 mg/dL | [facility] | | | | | LABORATORY | + + + + + | EGFR | 54 (L)Comment: GFR <60: | >60 mL/min/1.73m2 | [facility] | | | CHRONIC KIDNEY DISEASE, [...] | | | | | performed at [facility], [address] | | | | | [facility], | | | | | [place] [address] | | | + + + + + + + | Specimen | + + | Blood | + + + + + + + | Performing | Address | City/State/Zipcode | Phone Number | | Organization | | | | + + + + + | [facility] | [address] [facility] | [place] [address] | [phone] | | LABORATORY | [address] | | [...] [address], | | | | | [place] [address] | | | | |TEARDROP | | | | |NORMAL PLT MORPH | | | | |Testing performed at [facility], [address] [facility], [place] [address] | | | | | | | | + + -----+ + + + + | Specimen | + + | Blood | + + + + + + + | Performing | Address | City/State/Zipcode | Phone Number | | Organization | | | | + + + + + | [facility] | [address] [place] [address] | [place] [address] | [phone] | | LABORATORY | [address]. | | | + + + + + Septic Lactic Acid (10/23/2017 11:50 PM) + + + + + | Component | Value | Ref Range | Performed At | + + + + + | LACTIC ACID | 1.1Comment: Testing | 0.4 - 2.0 mmol/L | [facility] | | | performed at [facility];[address] | | | | | [address];[place] | | | | | [address] | | | + + + + + + + + + + | Performing | Address | City/State/Zipcode | Phone Number | | Organization | | | | + + + + + | [facility] | [address] | [place] [address] | | + + + + + Troponin I (10/23/2017 10:12 PM) + + + + + | Component | Value | Ref Range | Performed At | + + + + + | TROPONIN I | 1.76 ()Comment: 0.00 | 0.00 - 0.10 ng/mL | [facility] | | | to [...] | | | | CRITERIA FOR ACUTE [place] | | | | | CALLED TO KIMBERLEE Rodríguez ON | | | | | 8RP AT 2255 BY CD, READ | | | | | BACKTesting performed at | | | | | [facility];[address] | | | | | [facility];[place] [address] | | | + + + + + + + | Specimen | + + | Blood | + + + + + + + | Performing | Address | City/State/Zipcode | Phone Number | | Organization | | | | + + + + + | [facility] | [address] | [place] [address] | | + + + + + [...] | | | | | dose on [facility] 10/24/17 at 1030, | | | | [...] | | | | | Other, Starting [facility] 10/24/17 at | | | | | [...] | | | | First dose on [facility] 10/24/17 at 0000 | | | | [...] | | | | First dose on [facility] 10/24/17 at 0630 | | | | [...] | | | | Pain (7-10), Starting [facility] 10/24/17 | | | | | | [...] | | | | | dose on [facility] 10/24/17 at 0000 | | | | [...] PDT | | | | | Starting [facility] 10/24/17 at 1912 | | | | [...]
--- OUTSIDE RECORDS SUMMARY | ~2017-10-28 | XMS | Encounter Summary ---
Demographics + + + | Address | [address] | | | [place] [address] | + + + | Home Phone [...] + + | Author | [facility] | + + + | Organization | [facility] | + + + | Address | Unknown | + + + | Phone | Unavailable | + + + Support + + + + + | Name | Relationship | Address | Phone | + + + + + | Blossom Rose | ECON | [address] | | | | | [place] | | | | | [address] | | + + + + + | Message,Detailed | ECON | Unknown | | + + + + + Care Team Providers + +------+ + | Care Rn Progressive Care Unit Name | Role | Phone | + [...] + + | 10/16/ | Hospital | [facility] PHYS[facility]IAN | See, Medical | Pain | | 2018 | Encounter | [facility] | Record | | | | | RADIOLOGY [address] | | | | | | [address] | | | | | | [place] [address] | | | | | | [phone] | | | +--------+ + + + [...] by | | | | | | [id number] | mouth daily. | | | | [...] | | | | | | [place] [address] | | | | | | [phone] | | | | | | | | +--------+ + + + + | 12/04/ | Office | Cardiology | Cristian Mccoy, | | | 2017 | Visit | | MD [address] | | | | | | Dr [address], | | | | | | [place] [address] | | | | | | [phone] | | | | | | | | +--------+ + + + + | 01/08/ | Office | Cardiology | HectorCristian wiggins, | | | 2017 | Visit | | MD [address] | | | | | | [address], | | | | | | [place] [address] | | | | | | [phone] | | | | | | | [...] [place] | | | | | | [address] | | | | | | | [...] RADIOLOGY | [address] | [place] [address] | | + + + + + in this encounter Visit Diagnoses + + | Diagnosis | + + | Pain | + + | Generalized pain | + +"
--- OUTSIDE RECORDS SUMMARY | ~2017-10-28 | XMS | Encounter Summary ---
Demographics + + + | Address | [address] | | | [place] [address] | + + + | Home Phone [...] | Author | [facility] | + + + | Organization | [facility] | + + + | Address | Unknown | + + + | Phone | Unavailable | + + + Support + + + + + | Name | Relationship | Address | Phone | + + + + + | Blossom Rose | ECON | [address] | | | | | [place] | | | | | [address] | | + + + + + | Message,Detailed | ECON | Unknown | | + + + + + Care Team Providers + +------+ + | Care Narcotics Detective Name | Role | Phone | + [...] + + | 07/31/ | Ancillary | [facility] | See, Medical | Pain | | 2018 | [facility] | [facility] [address] | Record | | | | | [address] [facility] | | | | | | [place] [address] | | | | | | [phone] | | | +--------+ + + + [...] | | | | | [place] [address] | | | | | | [phone] | | | | | | | | +--------+ + + + + | 12/04/ | Office | Cardiology | Cristian Mccoy, | | | 2017 | Visit | | MD [address] | | | | | | Dr [address], | | | | | | [place] [address] | | | | | | [phone] | | | | | | | | +--------+ + + + + | 01/08/ | Office | Cardiology | Cristian Mccoy, | | | 2017 | Visit | | MD [address] | | | | | | [address], | | | | | | [place] [address] | | | | | | [phone] | | | | | | | [...] [place] | | | | | | [address] | | | | | | | [...] | [address] | [place] [address] | | + + + + + in this encounter Visit Diagnoses + + | Diagnosis | + + | Pain | + + | Generalized pain | + +"
--- OUTSIDE RECORDS SUMMARY | ~2017-10-28 | XMS | Encounter Summary ---
Demographics + + + | Address | [address] | | | [place] [address] | + + + | Home Phone | | + + + | Preferred Language | Unknown | + + + | Marital Status | | + + + | Yazidism Affiliation | 1028 | + + + | Race | Unknown | + + + | Ethnic Group | Unknown | + + + Author + + + | Author | [facility] | + + + | Organization | [facility] | + + + | Address | Unknown | + + + | Phone | Unavailable | + + + Support + + + + + | Name | Relationship | Address | Phone | + + + + + | Blossom Rose | ECON | [address] | | | | | [place] | | | | | [address] | | + + + + + | Message,Detailed | ECON | Unknown | | + + + + + Care Team Providers + +------+ + | Care Flash Designer Name | Role | Phone | + +------+ + | Nelson Laird MD | PCP | | + +------+ + Encounter Details +--------+ + + + + | Date | Type | Department | Care Team | Description | +--------+ + + + + | 10/23/ | Hospital | [facility] PHYS[facility]IAN | See, Medical | Pain | | 2018 | Encounter | [facility] | Record | | | | | RADIOLOGY [address] | | | | | | [address] [facility] | | | | | | [place] [address] | | | | | | [phone] | | | +--------+ + + + [...] by | | | | | | [id number] | mouth daily. | | | | [...] | | | | | | MD [address] | | | | | | [place] [address] | | | | | | [phone] | | | | | | | | +--------+ + + + + | 12/04/ | Office | Cardiology | Cristian Mccoy, | | | 2017 | Visit | | MD [address] | | | | | | [address], | | | | | | [place] [address] | | | | | | [phone] | | | | | | | | +--------+ + + + + | 01/08/ | Office | Cardiology | Cristian Mccoy, | | | 2017 | Visit | | MD [address] | | | | | | [address], | | | | | | [place] [address] | | | | | | [phone] | | | | | | | [...] [place] | | | | | | [address] | | | | | | | [...] | + + + + + | [facility] | [address] | [place] [address] | | + + + + + in this encounter Visit Diagnoses + + | Diagnosis | + + | Pain | + + | Generalized pain | + +"
[~2017-10-28 22:59] MED LIST changes: +AZELASTINE HCL6 ML OPTH; +B-121000 MC2 PO; +CALCIUM MAGNES1 EAC2 PO; +FLONASE SENSIM5.9 ML; +FOSAMAX70 MG PO; +GUAIFENESIN ER600 MG PO; +HIGH POTENCY I134 MG PO; +IMURAN50 MG PO; +KRILL OIL500 MG PO; +MUPIROCIN1 GM; +NORCO 7.5-3251 EACH PO; +NYSTATIN15 GM TOP; +PEPCID40 MG PO; +PEPTO-BISMOL262 MG PO; +POLYCIN EYE OI3.5 GM OPTH; +VITAMIN D31000 UNIT PO; +VOLTAREN100 GM TOP
[2017-10-28] MEDS ORDERED: ALENDRONATE SOD70 MG PO (23:45)
[2017-10-28] MEDS ORDERED: CLEOCIN HCL300 MG PO (23:47)
[2017-10-28] MEDS ORDERED: SYMBICORT 16010.2 GM INH ×2 (23:50)
[2017-10-28] MEDS ORDERED: PLAVIX75 MG PO ×2 (23:51)
== END 2017-10-29 05:00 | disposition home or self-care (01) ==
LOC: ED 22:59
PROC: 0W3Q7ZZ Control Bleeding in Respiratory Tract, Via Natural or Artificial Opening (ICD-10-PCS; principal; 2017-10-28)
DX: R04.0 Epistaxis (principal); D64.9 Anemia, unspecified; T45.515A Adverse effect of anticoagulants, initial encounter; J44.9 Chronic obstructive pulmonary disease, unspecified; I48.91 Unspecified atrial fibrillation; K21.9 Gastro-esophageal reflux disease without esophagitis; I25.2 Old myocardial infarction; E03.9 Hypothyroidism, unspecified; F32.9 Major depressive disorder, single episode, unspecified; N18.9 Chronic kidney disease, unspecified; Z87.891 Personal history of nicotine dependence; Z88.8 Allergy status to other drugs, medicaments and biological substances; Z79.2 Long term (current) use of antibiotics; Z79.899 Other long term (current) drug therapy
CPT/HCPCS: 30901; 30905; 71046; 80053; 85025; 85610; 85730; 99283

== ENCOUNTER 2017-11-13 05:32 | Emergency (ER) | payer MEDICARE ==
[~2017-11-13] VITALS: Ht 172.7 cm; Wt 70.3 kg
--- OUTSIDE RECORDS SUMMARY | ~2017-11-13 | XMS | Encounter Summary ---
Demographics + + + | Address | [address] | | | [place] [address] | + + + | Home Phone | | + + + | Preferred Language | Unknown | + + + | Marital Status | | + + + | Methodist Affiliation | 1028 | + + + | Race | Unknown | + + + | Ethnic Group | Unknown | + + + Author + + + | Author | [facility] [facility] | + + + | Organization | [facility] | + + + | Address | Unknown | + + + | Phone | Unavailable | + + + Support + + + + + | Name | Relationship | Address | Phone | + + + + + | Blossom Rose | ECON | [address] | | | | | [place] | | | | | [address] | | + + + + + | Message,Detailed | ECON | Unknown | | + + + + + Care Team Providers + +------+ + | Care Materials Handling Equipment Operator Name | Role | Phone | + +------+ + | Nelson Laird MD | PCP | | + +------+ + Reason for Visit + + + | Reason | Comments | + + + | Labs Only | | + + + Encounter Details +--------+ + + + + | Date | Type | Department | Care Team | Description | +--------+ + + + + | 10/08/ | Documentati | [facility] [place] | [place], | Labs Only | | 2018 | on Only | Cardiology [place] | [place] | | | | | [address] | | | | | | [place] | | | | | | [address] | | | | | | [phone] | | | +--------+ + + + [...] | Pulmonology | [place], | | | 2017 | Visit | | Marycarla Pinto, | | | | | | MD [address] | | | | | | [place] [address] | | | | | | [phone] | | | | | | | | +--------+ + + + + | 12/04/ | Office | Cardiology | Cristian Mccoy, | | | 2017 | Visit | | MD [address] | | | | | | [address], | | | | | | [place] [address] | | | | | | [phone] | | | | | | | | +--------+ + + + + | 01/08/ | Office | Cardiology | Cristian Mccoy, | | | 2017 | Visit | | MD [address] | | | | | | [address], | | | | | | [place] [address] | | | | | | [phone] | | | | | | | [...] | Bridget Milian DNP | | | 2017 | Visit | | [address] | | | | | | [place] | | | | | | [address] | | | | | | | | +--------+ + + + + as of this encounter Visit Diagnoses Not on filein this encounter"
--- OUTSIDE RECORDS SUMMARY | ~2017-11-13 | XMS | Clinical Summary ---
Demographics + + + | Address | [address] | | | [place] [address] | + + + | Home Phone | | + + + | Preferred Language | Unknown | + + + | Marital Status | | + + + | Sabianism Affiliation | LUT | + + + | Race | White | + + + | Ethnic Group | Not or | + + + Author + + + | Author | [facility] | + + + | Organization | [facility] | + + + | Address | Unknown | + + + | Phone | Unavailable | + + + Support + + +---------+ + | Name | Relationship | Address | Phone | + + +---------+ + | CRISTOBAL ROBERTSON | ECON | Unknown | | + + +---------+ + Care Team Providers + +------+ + | Care Bus Van Driver Name | Role | Phone | + +------+ + | Maycol Knutson MD | PP | | + +------+ + Source Comments ARIANNA is fully live on both [facility] Ambulatory and [facility] InPatient.[facility] Allergies No Known Allergies Current Medications + + +-------+---------+------+------+-------+ | Prescription | Sig. | Disp. | Refills | Star | End | Statu | | | | | | t | Date | s | | | | | | Date | | | + + +-------+---------+------+------+-------+ | VICODIN ORAL | None Entered | | | | | Activ | | | | | | | | e | + + +-------+---------+------+------+-------+ | LANSOPRAZOLE | Take by mouth. | | | | | Activ | | (PREVACID ORAL) | | | | | | e | + + +-------+---------+------+------+-------+ | metoclopramide | Take 5 mg by mouth | | | | | Activ | | (REGLAN) 5 mg Oral | every six hours as | | | | | e | | Tablet | needed. | | | | | | + + +-------+---------+------+------+-------+ | sertraline | Take 50 mg by mouth | | | | | Activ | | (ZOLOFT) 50 mg Oral | once daily. | | | | | e | | Tablet | | | | | | | + + +-------+---------+------+------+-------+ | tamsulosin | Take 0.4 mg by mouth | | | | | Activ | | (FLOMAX) 0.4 mg Oral | once daily. | | | | | e | | Capsule, Sust. | | | | | | | | Release 24 hr | | | | | | | + + +-------+---------+------+------+-------+ | TESTOSTERONE IM | Inject into the | | | | | Activ | | | muscle (IM). | | | | | e | + + +-------+---------+------+------+-------+ | | Take by mouth. | | | | | Activ | | Amlodipine-Atorvasta | | | | | | e | | tin (CADUET) 10-10 | | | | | | | | mg Oral Tablet | | | | | | | + + +-------+---------+------+------+-------+ | ACYCLOVIR ORAL | Take by mouth as | | | /3 | | Activ | | | needed. | | | 0/20 | | e | | | | | | 10 | | | + + +-------+---------+------+------+-------+ | CYANOCOBALAMIN | by Injection route | | | 3 | | Activ | | (VITAMIN B-12 INJ) | every thirty days. | | | 0/20 | | e | | | | | | 10 | | | + + +-------+---------+------+------+-------+ | gabapentin 300 mg | Take 300 mg by mouth | | | | | Activ | | Oral Tablet | three times daily. | | | | | e | + + +-------+---------+------+------+-------+ | LORATADINE | Take by mouth. | | | | | Activ | | (CLARITIN ORAL) | | | | | | e | + + +-------+---------+------+------+-------+ | NAPROXEN | Take by mouth. | | | | | Activ | | SODIUM/P-EPHED HCL | | | | | | e | | (SUDAFED 12 HR | | | | | | | | SINUS-PAIN ORAL) | | | | | | | + + +-------+---------+------+------+-------+ | atorvastatin | Take 10 mg by mouth | | | | | Activ | | (LIPITOR) 10 mg Oral | once daily. | | | | | e | | Tablet | | | | | | | + + +-------+---------+------+------+-------+ | omeprazole | Take 40 mg by mouth | | | | | Activ | | (PRILOSEC) 40 mg | once daily. 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 | + + + | Pharyngeal dysphagia | 12/18/2006 | + + + | Allergic rhinitis | 12/18/2006 | + + + + + | Overview: ICD10 | + + Resolved Problems + + + + | Problem | Noted | Resolved | | | Date | Date | + + + + | Laryngeal cancer (HCC) | 12/19/19 | | | | 07 | 1 | + + + + Family History + + +------+ + | Medical History | Relation | Name | Comments | + + +------+ + | Cancer | Mother | | breast | + + +------+ + + +------+--------+ + | Relation | Name | Status | Comments | + +------+--------+ + | Mother | | | | + +------+--------+ + Social History [...] on file | | + + + Last Filed Vital Signs + + + + | Vital Sign | Reading | Time Taken | + + + + | Blood Pressure | 135/77 | 07/31/2010 11:13 AM PDT | + + + + | Pulse | 78 | 07/31/2010 11:13 AM PDT | + + + + | Temperature | - | - | + + + + | Respiratory Rate | - | - | + + + + | Oxygen Saturation | - | - | + + + + | Inhaled Oxygen | - | - | | Concentration | | | + + + + | Weight | 92.5 kg (204 lb) | 07/31/2010 11:13 AM PDT | + + + + | Height | 172.7 cm (5' 8") | 07/31/2010 11:13 AM PDT | + + + + | Body Mass Index | 31.02 | 07/31/2010 11:13 AM PDT | + + + + Plan of Treatment + + + + + | Health Maintenance | Due Date | Last Done | Comments | + + + + + | INFLUENZA VACCINE | | | | | (FLU SHOT) | 8 | | | + + + + + Results Not on filefrom Last 3 Months Insurance + +--------+ +--------+ + + | Payer | Benefi | Subscriber | Type | Phone | Address | | | t Plan | ID | | | | | | / | | | | | | | Group | | | | | + +--------+ +--------+ + + | MEDICARE | MEDICA | xxxxxxxxxx | Medica | [phone] | [address] | | | RE A & | | re | [phone] | [place] [address] | | | B | | | | | + +--------+ +--------+ + + | COMMERCIAL GROUP | COMMER | xxxxxxxxx | Indemn | | | | | CIAL | | ity | | | | | GROUP | | | | | + +--------+ +--------+ + + + +--------+ +--------+ + + | Guarantor Name | Accoun | Relation to | Date | Phone | Billing Address | | | t Type | Patient | of | | | | | | | | | | + +--------+ +--------+ + + | PAVITHRA ROBERTSON | Person | Self [birth year] Home: | [address] | | | al/Fam | | 1945 | [phone] | [place] | | | [place] | | | [phone] | [phone] | + +--------+ +--------+ + +
--- OUTSIDE RECORDS SUMMARY | ~2017-11-13 | XMS | Encounter Summary ---
Demographics + + + | Address | [address] | | | [place] [address] | + + + | Home Phone | | + + + | Preferred Language | Unknown | + + + | Marital Status | | + + + | Church Affiliation | 1028 | + + + | Race | Unknown | + + + | Ethnic Group | Unknown | + + + Author + + + | Author | [facility] | + + + | Organization | [facility] | + + + | Address | Unknown | + + + | Phone | Unavailable | + + + Support + + + + + | Name | Relationship | Address | Phone | + + + + + | Blossom Rose | ECON | [address] | | | | | [place] | | | | | [address] | | + + + + + | Message,Detailed | ECON | Unknown | | + + + + + Care Team Providers + +------+ + | Care Firer Kiln Name | Role | Phone | + +------+ + | Nelson Laird MD | PCP | | + +------+ + Reason for Visit + + + | Reason | Comments | + + + | Diarrhea | | + + + Encounter Details +--------+ + + + + | Date | Type | Department | Care Team | Description | +--------+ + + + + | 10/27/ | Telephone | [facility] [place] | Bhavesh Huggins, | Diarrhea | | 2018 | | Cardiology [place] | [address] | | | | | [address] | [facility], | | | | | [place], [place] | [place] [address] | | | | | [address] | [phone] | | | | | [phone] | | | +--------+ + + + [...] [address] | | | | | | [place] [address] | | | | | | [phone] | | | | | | | | +--------+ + + + + | 12/04/ | Office | Cardiology | Cristian Mccoy, | | | 2017 | Visit | | MD [address] | | | | | | [address] [place], | | | | | | [place] [address] | | | | | | [phone] | | | | | | | | +--------+ + + + + | 01/08/ | Office | Cardiology | Cristian Mccoy, | | | 2017 | Visit | | MD [address] | | | | | | [address] [place], | | | | | | [place] [address] | | | | | | [phone] | | | | | | | [...] [place] | | | | | | [address] | | | | | | | | +--------+ + + + + as of this encounter Visit Diagnoses Not on filein this encounter"
--- OUTSIDE RECORDS SUMMARY | ~2017-11-13 | XMS | Encounter Summary ---
Demographics + + + | Address | [address] | | | [place] [address] | + + + | Home Phone | | + + + | Preferred Language | Unknown | + + + | Marital Status | | + + + | Muslim Affiliation | 1028 | + + + | Race | Unknown | + + + | Ethnic Group | Unknown | + + + Author + + + | Author | [facility] | + + + | Organization | [facility] [employer] [facility] | + + + | Address | Unknown | + + + | Phone | Unavailable | + + + Support + + + + + | Name | Relationship | Address | Phone | + + + + + | Blossom Rose | ECON | [address] | | | | | [place] | | | | | [address] | | + + + + + | Message,Detailed | ECON | Unknown | | + + + + + Care Team Providers + +------+ + | Care Internal Medicine Physician Assistant Name | Role | Phone | + +------+ + | Nelson Laird MD | PCP | | + +------+ + Encounter Details +--------+ + + + + | Date | Type | Department | Care Team | Description | +--------+ + + + + | 10/23/ | Ancillary | [facility] | See, Medical | Pain | | 2018 | Orders | [facility] Center Xray | Record | | | | | [address] | | | | | | [place] [address] | | | | | | [phone] | | | +--------+ + + + [...] | | | | | [place] [address] | | | | | | [phone] | | | | | | | | +--------+ + + + + | 12/04/ | Office | Cardiology | Cristian Mccoy, | | | 2017 | Visit | | [address] | | | | | | [address] [place], | | | | | | [place] [address] | | | | | | [phone] | | | | | | | | +--------+ + + + + | 01/08/ | Office | Cardiology | Cristian Mccoy, | | | 2017 | Visit | | MD [address] | | | | | | [address] [place], | | | | | | [place] [address] | | | | | | [phone] | | | | | | | [...] [place] | | | | | | [address] | | | | | | | | +--------+ + + + + as of this encounter Results X-ray chest 2 view frontal & lateral (10/23/2017 5:05 PM) + + + | [...] [facility] | [address] | [place] [address] | | + + + + + in this encounter Visit Diagnoses + + | Diagnosis | + + | Pain | + + | Generalized pain | + +"
--- OUTSIDE RECORDS SUMMARY | ~2017-11-13 | XMS | Encounter Summary ---
Demographics + + + | Address | [address] | | | [place] [address] | + + + | Home Phone | | + + + | Preferred Language | Unknown | + + + | Marital Status | | + + + | Pentecostal Affiliation | 1028 | + + + | Race | Unknown | + + + | Ethnic Group | Unknown | + + + Author + + + | Author | [facility] | + + + | Organization | [facility] [facility] | + + + | Address | Unknown | + + + | Phone | Unavailable | + + + Support + + + + + | Name | Relationship | Address | Phone | + + + + + | Blossom Rose | ECON | [address] | | | | | [place] | | | | | [address] | | + + + + + | Message,Detailed | ECON | Unknown | | + + + + + Care Team Providers + +------+ + | Care Collator Operator Name | Role | Phone | + +------+ + | Nelson Laird MD | PCP | | + +------+ + Reason for Visit +--------+ + | Reason | Comments | +--------+ + | Other | Stress test 10/14/17 | +--------+ + Encounter Details +--------+ + + + + | Date | Type | Department | Care Team | Description | +--------+ + + + + | 10/15/ | Documentati | [facility] | [facility] [place] | Billy (Stress test | | 2017 | on Only | Kevyn Umaña CMA | 10/14/17) | | | | [address] | | | | | | [place] | | | | | | [address] | | | | | | [phone] | | | +--------+ + + + [...] | | | | | | [address] | | | | | | [place] [address] | | | | | | [phone] | | | | | | | | +--------+ + + + + | 12/04/ | Office | Cardiology | Cristian Mccoy, | | | 2017 | Visit | | [address] | | | | | | [address] [place], | | | | | | [place] [address] | | | | | | [phone] | | | | | | | | +--------+ + + + + | 01/08/ | Office | Cardiology | Cristian Mccoy, | | | 2017 | Visit | | MD [address] | | | | | | [address] [place], | | | | | | [place] [address] | | | | | | [phone] | | | | | | | [...] [place] | | | | | | [address] | | | | | | | | +--------+ + + + + as of this encounter Visit Diagnoses Not on filein this encounter"
--- OUTSIDE RECORDS SUMMARY | ~2017-11-13 | XMS | Encounter Summary ---
Demographics + + + | Address | [address] | | | [place] [address] | + + + | Home Phone | | + + + | Preferred Language | Unknown | + + + | Marital Status | | + + + | Nondenominational Affiliation | 1028 | + + + | Race | Unknown | + + + | Ethnic Group | Unknown | + + + Author + + + | Author | [facility] [employer] | + + + | Organization | [facility] [employer] [facility] | + + + | Address | Unknown | + + + | Phone | Unavailable | + + + Support + + + + + | Name | Relationship | Address | Phone | + + + + + | Blossom Rose | ECON | [address] | | | | | [place] | | | | | [address] | | + + + + + | Message,Detailed | ECON | Unknown | | + + + + + Care Team Providers + +------+ + | Care Oxygen Therapy Technician Name | Role | Phone | + +------+ + | Nelson Laird MD | PCP | | + +------+ + Reason for Visit + + + | Reason | Comments | + + + | Epistaxis | | + + + Encounter Details +--------+ + + + + | Date | Type | Department | Care Team | Description | +--------+ + + + + | 10/30/ | Telephone | [facility] [place] | Bhavesh Huggins, | Epistaxis | | 2018 | | Cardiology [place] | [address] | | | | | [address] | Bharath [facility] [place], | | | | | [place], [place] | [place] [address] | | | | | [address] | [phone] | | | | | [phone] | | | +--------+ + + + [...] [address] | | | | | | [place] [address] | | | | | | [phone] | | | | | | | | +--------+ + + + + | 12/04/ | Office | Cardiology | Cristian Mccoy, | | | 2017 | Visit | | [address] | | | | | | [address] [place], | | | | | | [place] [address] | | | | | | [phone] | | | | | | | | +--------+ + + + + | 01/08/ | Office | Cardiology | Cristian Mccoy, | | | 2017 | Visit | | MD [address] | | | | | | [address] [place], | | | | | | [place] [address] | | | | | | [phone] | | | | | | | [...] [place] | | | | | | [address] | | | | | | | | +--------+ + + + + as of this encounter Visit Diagnoses Not on filein this encounter"
--- OUTSIDE RECORDS SUMMARY | ~2017-11-13 | XMS | Encounter Summary ---
Demographics + + + | Address | [address] | | | [place] [address] | + + + | Home Phone [...] + + | Author | [facility] | + + + | Organization | [facility] | + + + | Address | Unknown | + + + | Phone | Unavailable | + + + Support + + + + + | Name | Relationship | Address | Phone | + + + + + | Blossom Rose | ECON | [address] | | | | | [place] | | | | | [address] | | + + + + + | Message,Detailed | ECON | Unknown | | + + + + + Care Team Providers + +------+ + | Care Skull Chopper Name | Role | Phone | + [...] + | 10/27/ | Telephone | [facility] [place] | Bhavesh Huggins, | Diarrhea | | 2018 | | Cardiology [place] | [address] | | | | | [address] | [facility], | | | | | [place], [place] | [place] [address] | | | | | [address] | [phone] | | | | | [phone] | | | +--------+ + + + [...] | | | | | | [place] [address] | | | | | | [phone] | | | | | | | | +--------+ + + + + | 12/04/ | Office | Cardiology | Cristian Mccoy, | | | 2017 | Visit | | MD [address] | | | | | | [address] [place], | | | | | | [place] [address] | | | | | | [phone] | | | | | | | | +--------+ + + + + | 01/08/ | Office | Cardiology | Cristian Mccoy, | | | 2017 | Visit | | MD [address] | | | | | | [address] [place], | | | | | | [place] [address] | | | | | | [phone] | | | | | | | [...] [place] | | | | | | [address] | | | | | | | | +--------+ + + + + as of this encounter Visit Diagnoses Not on filein this encounter"
--- OUTSIDE RECORDS SUMMARY | ~2017-11-13 | XMS | Clinical Summary ---
Demographics + + + | Address | [address] | | | [place] [address] | + + + | Home Phone | | + + + | Preferred Language | Unknown | + + + | Marital Status | | + + + | Anabaptism Affiliation | LUT | + + + [...] Team Providers + +------+ + | Care Backing In Machine Tender Name | Role | Phone | + +------+ + | Maycol Knutson MD | PP | | + +------+ + Source Comments ARIANNA is fully live on both [facility] and [facility] InPatient.[facility] Allergies No Known Allergies Current Medications + [...] | re | [address] | [place] [address] | | | B | | | [...] | irish | | | 5865 | [address] | + +--------+ +--------+ + +
--- OUTSIDE RECORDS SUMMARY | ~2017-11-13 | XMS | Encounter Summary ---
Demographics + + + | Address | [address] | | | [place] [address] | + + + | Home Phone [...] + + | Author | [facility] | + + + | Organization | [facility] [employer] [facility] | + + + | Address | Unknown | + + + | Phone | Unavailable | + + + Support + + + + + | Name | Relationship | Address | Phone | + + + + + | Blossom Rose | ECON | [address] | | | | | [place] | | | | | [address] | | + + + + + | Message,Detailed | ECON | Unknown | | + + + + + Care Team Providers + +------+ + | Care Forensic Artist Name | Role | Phone | + +------+ + | Neslon Laird MD | PCP | | + [...] + + | 10/23/ | Hospital | [facility] | See, Medical | Pain | | 2018 | Encounter | [facility] | Record | | | | | RADIOLOGY [address] | | | | | | [address] | | | | | | [place] [address] | | | | | | [phone] | | | +--------+ + + + [...] by | | | | | | [id number] | mouth daily. | | | | [...] Dr | | | | | | [place] [address] | | | | | | [phone] | | | | | | | | +--------+ + + + + | 12/04/ | Office | Cardiology | Cristian Mccoy, | | | 2017 | Visit | | MD [address] | | | | | | Dr [place], | | | | | | [place] [address] | | | | | | [phone] | | | | | | | | +--------+ + + + + | 01/08/ | Office | Cardiology | Cristian Mccoy, | | | 2017 | Visit | | MD [address] | | | | | | [address] [place], | | | | | | [place] [address] | | | | | | [phone] | | | | | | | [...] [place] | | | | | | [address] | | | | | | | [...] RADIOLOGY | [address] | [place] [address] | | + + + + + in this encounter Visit Diagnoses + + | Diagnosis | + + | Pain | + + | Generalized pain | + +"
--- OUTSIDE RECORDS SUMMARY | ~2017-11-13 | XMS | Encounter Summary ---
Demographics + + + | Address | [address] | | | [place] [address] | + + + | Home Phone | | + + + | Preferred Language | Unknown | + + + | Marital Status | | + + + | Hoahaoism Affiliation | 1028 | + + + | Race | Unknown | + + + | Ethnic Group | Unknown | + + + Author + + + | Author | [facility] [employer] | + + + | Organization | [facility] [employer] [facility] | + + + | Address | Unknown | + + + | Phone | Unavailable | + + + Support + + + + + | Name | Relationship | Address | Phone | + + + + + | Blossom Rose | ECON | [address] | | | | | [place] | | | | | [address] | | + + + + + | Message,Detailed | ECON | Unknown | | + + + + + Care Team Providers + +------+ + | Care Narrow Gauge Operator Name | Role | Phone | [...] + | 10/08/ | Documentati | [facility] [place] | [place], | Labs Only | | 2018 | on Only | Cardiology [place] | [place] | | | | | [address] | | | | | | [place] | | | | | | [address] | | | | | | [phone] | | | +--------+ + + + [...] | | | | | | [place] [address] | | | | | | [phone] | | | | | | | | +--------+ + + + + | 12/04/ | Office | Cardiology | Cristian Mccoy, | | | 2017 | Visit | | MD [address] | | | | | | [address] [place], | | | | | | [place] [address] | | | | | | [phone] | | | | | | | | +--------+ + + + + | 01/08/ | Office | Cardiology | Cristian Mccoy, | | | 2017 | Visit | | MD [address] | | | | | | [address] [place], | | | | | | [place] [address] | | | | | | [phone] | | | | | | | [...]
--- OUTSIDE RECORDS SUMMARY | ~2017-11-13 | XMS | Encounter Summary ---
Demographics + + + | Address | [address] | | | [place] [address] | + + + | Home Phone | | + + + | Preferred Language | Unknown | + + + | Marital Status | | + + + | Oriental Orthodox Affiliation | 1028 | + + + | Race | Unknown | + + + | Ethnic Group | Unknown | + + + Author + + + | Author | [facility] [employer] | + + + | Organization | [facility] [employer] [facility] | + + + | Address | Unknown | + + + | Phone | Unavailable | + + + Support + + + + + | Name | Relationship | Address | Phone | + + + + + | Blossom Rose | ECON | [address] | | | | | [place] | | | | | [address] | | + + + + + | Message,Detailed | ECON | Unknown | | + + + + + Care Team Providers + +------+ + | Care Building Custodian Name | Role | Phone | + [...] [place] | | | | | | [address] | | | | | | [phone] | | | +--------+ + + + [...] | | 2017 | Visit | | [place], | | | | | | [address] | | | | | | [place] [address] | | | | | | [phone] | | | | | | | | +--------+ + + + + | 12/04/ | Office | Cardiology | Cristian Mccoy, | | | 2017 | Visit | | [address] | | | | | | [address], | | | | | | [place] [address] | | | | | | [phone] | | | | | | | | +--------+ + + + + | 01/08/ | Office | Cardiology | Cristian Mccoy, | | | 2017 | Visit | | MD [address] | | | | | | [address] [place], | | | | | | [place] [address] | | | | | | [phone] | | | | | | | [...] [place] | | | | | | [address] | | | | | | | | +--------+ + + + + as of this encounter Visit Diagnoses Not on filein this encounter"
--- OUTSIDE RECORDS SUMMARY | ~2017-11-13 | XMS | Encounter Summary ---
Demographics + + + | Address | [address] | | | [place] [address] | + + + | Home Phone | | + + + | Preferred Language | Unknown | + + + | Marital Status | | + + + | Church Affiliation | 1028 | + + + | Race | Unknown | + + + | Ethnic Group | Unknown | + + + Author + + + | Author | [facility] | + + + | Organization | [facility] [employer] | + + + | Address | Unknown | + + + | Phone | Unavailable | + + + Support + + + + + | Name | Relationship | Address | Phone | + + + + + | Blossom Rose | ECON | [address] | | | | | [place] | | | | | [address] | | + + + + + | Message,Detailed | ECON | Unknown | | + + + + + Care Team Providers + +------+ + | Care Heat Regulator Name | Role | Phone | + +------+ + | Nelson Laird MD | PCP | | + +------+ + Encounter Details +--------+ + + + + | Date | Type | Department | Care Team | Description | +--------+ + + + + | 10/24/ | Procedure | [facility] | | | | 2018 | [facility] | [facility] | | | | | | Floor [place] | | | | | | [address] | | | | | | [place] [address] | | | | | | [phone] | | | +--------+ + + + [...] | | | | | [place] [address] | | | | | | [phone] | | | | | | | | +--------+ + + + + | 12/04/ | Office | Cardiology | Cristian Mccoy, | | | 2017 | Visit | | MD [address] | | | | | | [address] [place], | | | | | | [place] [address] | | | | | | [phone] | | | | | | | | +--------+ + + + + | 01/08/ | Office | Cardiology | Cristian Mccoy, | | | 2017 | Visit | | MD [address] | | | | | | [address] [place], | | | | | | [place] [address] | | | | | | [phone] | | | | | | | [...]
--- OUTSIDE RECORDS SUMMARY | ~2017-11-13 | XMS | Encounter Summary ---
Demographics + + + | Address | [address] | | | [place] [address] | + + + | Home Phone | | + + + | Preferred Language | Unknown | + + + | Marital Status | | + + + | Baptism Affiliation | 1028 | + + + | Race | Unknown | + + + | Ethnic Group | Unknown | + + + Author + + + | Author | [facility] | + + + | Organization | [facility] [employer] | + + + | Address | Unknown | + + + | Phone | Unavailable | + + + Support + + + + + | Name | Relationship | Address | Phone | + + + + + | Blossom Rose | ECON | [address] | | | | | [place] | | | | | [address] | | + + + + + | Message,Detailed | ECON | Unknown | | + + + + + Care Team Providers + +------+ + | Care Sand Bobber Name | Role | Phone | + [...] + + | 10/23/ | Ancillary | [facility] | See, Medical | Pain | | 2018 | [facility] | [facility] [address] | Record | | | | | [address] [facility] [address] | | | | | | [place] [address] | | | | | | [phone] | | | +--------+ + + + [...] | | | | | [place] [address] | | | | | | [phone] | | | | | | | | +--------+ + + + + | 12/04/ | Office | Cardiology | Cristian Mccoy, | | | 2017 | Visit | | MD [address] | | | | | | Dr [place], | | | | | | [place] [address] | | | | | | [phone] | | | | | | | | +--------+ + + + + | 01/08/ | Office | Cardiology | Cristian Mccoy, | | | 2017 | Visit | | MD [address] | | | | | | [address] [place], | | | | | | [place] [address] | | | | | | [phone] | | | | | | | [...] [place] | | | | | | [address] | | | | | | | [...] [facility] | [address] | [facility] [place] [address] | | + + + + + in this encounter Visit Diagnoses + + | Diagnosis | + + | Pain | + + | Generalized pain | + +"
--- OUTSIDE RECORDS SUMMARY | ~2017-11-13 | XMS | Encounter Summary ---
Demographics + + + | Address | [address] | | | [place] [address] | + + + | Home Phone | | + + + | Preferred Language | Unknown | + + + | Marital Status | | + + + | Cheondoism Affiliation | 1028 | + + + | Race | Unknown | + + + | Ethnic Group | Unknown | + + + Author + + + | Author | [facility] | + + + | Organization | [facility] [employer] [facility] | + + + | Address | Unknown | + + + | Phone | Unavailable | + + + Support + + + + + | Name | Relationship | Address | Phone | + + + + + | Blossom Rose | ECON | [address] | | | | | [place] | | | | | [address] | | + + + + + | Message,Detailed | ECON | Unknown | | + + + + + Care Team Providers + +------+ + | Care Tack Coverer Name | Role | Phone | + +------+ + | Nelson Laird MD | PCP | | + +------+ + Reason for Visit Nuclear Medicine (Routine) + +--------+ + + [...] + + + + | 10/16/ | Hospital | [facility] | See, Medical | Pain | | 2018 | Encounter | [facility] | Record | | | | | RADIOLOGY [address] | | | | | | [address] | | | | | | [place] [address] | | | | | | [phone] | | | +--------+ + + + [...] | + + +--------+---------+ + + | alendronate | Take 70 [...] | + + +--------+---------+ + + | azaTHIOprine | Take 50 [...] by | | | | | | [id number] | mouth daily. | | | | [...] | + + +--------+---------+ + + | famotidine | Take 40 [...] + +--------+---------+ + + | mupirocin | 1 g [...] Dr | | | | | | [place] [address] | | | | | | [phone] | | | | | | | | +--------+ + + + + | 12/04/ | Office | Cardiology | Cristian Mccoy, | | | 2017 | Visit | | MD [address] | | | | | | Dr [place], | | | | | | [place] [address] | | | | | | [phone] | | | | | | | | +--------+ + + + + | 01/08/ | Office | Cardiology | HectorCristian wiggins, | | | 2017 | Visit | | MD [address] | | | | | | [address] [place], | | | | | | [place] [address] | | | | | | [phone] | | | | | | | [...] [place] | | | | | | [address] | | | | | | | | +--------+ + + + + as of this encounter Procedures + +--------+ + + + | Procedure Name | Priori | Date/Time | Associated Diagnosis | Comments | | | ty | | | | + +--------+ + + + | NM MYOCARDIAL | Routin | 10/14/2017 | Pain | Results for this | | PERFUSION SPECT - | e | 1:12 AM | | procedure are in the | | STRESS ONLY | | PDT | | results section. | + +--------+ + + + in this encounter Results NM myocardial perfus SPECT [...] RADIOLOGY | [address] | [place] [address] | | + + + + + in this encounter Visit Diagnoses + + | Diagnosis | + + | Pain | + + | Generalized pain | + +"
--- OUTSIDE RECORDS SUMMARY | ~2017-11-13 | XMS | Encounter Summary ---
Demographics + + + | Address | [address] | | | [place] [address] | + + + | Home Phone | | + + + | Preferred Language | Unknown | + + + | Marital Status | | + + + | Religion Affiliation | 1028 | + + + | Race | Unknown | + + + | Ethnic Group | Unknown | + + + Author + + + | Author | [facility] [employer] | + + + | Organization | [facility] [employer] [facility] | + + + | Address | Unknown | + + + | Phone | Unavailable | + + + Support + + + + + | Name | Relationship | Address | Phone | + + + + + | Blossom Rose | ECON | [address] | | | | | [place] | | | | | [address] | | + + + + + | Message,Detailed | ECON | Unknown | | + + + + + Care Team Providers + +------+ + | Care Assembler Final Name | Role | Phone | + [...] [address] | | | | | | [place] [address] | | | | | | [phone] | | | +--------+ + + + [...] | | | | | [place] [address] | | | | | | [phone] | | | | | | | | +--------+ + + + + | 12/04/ | Office | Cardiology | Cristian Mccoy, | | | 2017 | Visit | | [address] | | | | | | [address] [place], | | | | | | [place] [address] | | | | | | [phone] | | | | | | | | +--------+ + + + + | 01/08/ | Office | Cardiology | Cristian Mccoy, | | | 2017 | Visit | | MD [address] | | | | | | [address], | | | | | | [place] [address] | | | | | | [phone] | | | | | | | [...] [place] | | | | | | [address] | | | | | | | [...] [facility] | [address] | [place] [address] | | + + + + + in this encounter Visit Diagnoses + + | Diagnosis | + + | Pain | + + | Generalized pain | + +"
--- OUTSIDE RECORDS SUMMARY | ~2017-11-13 | XMS | Encounter Summary ---
Demographics + + + | Address | [address] | | | [place] [address] | + + + | Home Phone | | + + + | Preferred Language | Unknown | + + + | Marital Status | | + + + | Hoahaoism Affiliation | 1028 | + + + | Race | Unknown | + + + | Ethnic Group | Unknown | + + + Author + + + | Author | [facility] | + + + | Organization | [facility] [employer] [facility] | + + + | Address | Unknown | + + + | Phone | Unavailable | + + + Support + + + + + | Name | Relationship | Address | Phone | + + + + + | Blossom Rose | ECON | [address] | | | | | [place] | | | | | [address] | | + + + + + | Message,Detailed | ECON | Unknown | | + + + + + Care Team Providers + +------+ + | Care Hand Candy Dipper Name | Role | Phone | + [...] | | | | | artery, | [place], [place] | [address] | | | | | angina | [address] | Phone: | | | | | presence | Phone: | [phone] | | | | | unspecified, | [phone] | Fax: | | | | | unspecified | Fax: | [phone] | | | | | vessel or | [phone] | | | | | | lesion type, | | | | | | | unspecified | | | | | | | whether | | | | | | | takotna or | | | | | | [...] [place] | | | | | takotna | [place], | [address] Phone: | | | | | coronary | [place] [address] | [phone] | | | | | artery | Phone: | Fax: | | | | | without | [phone] | [phone] | | | | | angina | Fax: | | | | | | pectoris | [phone] | | | | | | Procedures | | | | | | | Consult | | | +--------+--------+ + + + + Encounter Details +--------+ + + + + | Date | Type | Department | Care Team | Description | +--------+ + + + + | 10/07/ | Initial | [facility] [place] | Cristian Mccoy, | Encounter for annual | | 2018 | consult | Cardiology [place] | [address] | health examination | | | | [address] | [address], | (Primary Dx); | | | | [place], [place] | [place] [address] | Atherosclerosis of | | | | [address] | [phone] | coronary artery, | | | | [phone] | | angina presence | | | | | | unspecified, | | | | | | unspecified vessel | | | | | | or lesion type, | | | | | | unspecified whether | | | | | | takotna or | | | | | | [...] been controlled. Used to follow-up with an [place] [facility] last time seen was in 2004, [...] r) times daily before meals and nightly. [id number]-[id number]-ZXPI PO Take 1 tablet by mouth daily. [...] Anaphylaxis Diltiazem Edema Gabapentin Other (See Comments) TEST TECH Imipramine Other (See Comments) Urinary retention Metoprolol [...] Dr | | | | | | [place] [address] | | | | | | [phone] | | | | | | | | +--------+ + + + + | 12/04/ | Office | Cardiology | Cristian Mccoy, | | | 2017 | Visit | | MD [address] | | | | | | Dr [place], | | | | | | [place] [address] | | | | | | [phone] | | | | | | | | +--------+ + + + + | 01/08/ | Office | Cardiology | Cristian Mccoy, | | | 2017 | Visit | | MD [address] | | | | | | Dr [address], | | | | | | [place] [address] | | | | | | [phone] | | | | | | | [...] [place] | | | | | | [address] | | | | | | | [...] unspecified whether | | | | | takotna or | | | | | transplanted [...] whether | | | | | | takotna or | | | | | | transplanted heart | | + +--------+ + + + in this encounter Results [facility] STANDARD 12 LEAD (10/07/2017 1:13 PM) + [...] + + + + | Calculated R [place] | -77 | degrees | [facility] | + + + + + | Calculated T [place] | 38 | degrees | [facility] [...] | | | | | by [facility] [place] Read Only, | | | | | [facility] [address] ([id number]), | | | | | slot editor Elbert Portillo | | | | | (253) on 10/07/2017 | | | | | 1:52:40 PM | | | + + + + + + + + + + | Performing | Address | City/State/Zipcode | Phone Number | | Organization | | | | + + + + + | [facility] | [address] | [place] [address] | | + + + + + in this encounter Visit Diagnoses + + | Diagnosis | + + | Encounter for annual health examination - Primary | + + | Routine general medical examination at a health care facility | + + | Atherosclerosis of coronary artery, angina presence unspecified, unspecified vessel or | | lesion type, unspecified whether takotna or transplanted heart | + + | [...]
--- OUTSIDE RECORDS SUMMARY | ~2017-11-13 | XMS | Encounter Summary ---
Demographics + + + | Address | [address] | | | [place] [address] | + + + | Home Phone | | + + + | Preferred Language | Unknown | + + + | Marital Status | | + + + | Gnosticism Affiliation | 1028 | + + + | Race | Unknown | + + + | Ethnic Group | Unknown | + + + Author + + + | Author | [facility] | + + + | Organization | [facility] [employer] [facility] | + + + | Address | Unknown | + + + | Phone | Unavailable | + + + Support + + + + + | Name | Relationship | Address | Phone | + + + + + | Blossom Rose | ECON | [address] | | | | | [place] | | | | | [address] | | + + + + + | Message,Detailed | ECON | Unknown | | + + + + + Care Team Providers + +------+ + | Care Senior Office Assistant Name | Role | Phone | + +------+ + | Nelson Laird MD | PCP | | + +------+ + Encounter Details +--------+ + + + + | Date | Type | Department | Care Team | Description | +--------+ + + + + | 10/24/ | Procedure | [facility] | | | | 2018 | [facility] | [facility]th | | | | | | Floor [place] | | | | | | [address] | | | | | | [place] [address] | | | | | | [phone] | | | +--------+ + + + [...] | | | | | [place] [address] | | | | | | [phone] | | | | | | | | +--------+ + + + + | 12/04/ | Office | Cardiology | Cristian Mccoy, | | | 2017 | Visit | | MD [address] | | | | | | Dr [address], | | | | | | [place] [address] | | | | | | [phone] | | | | | | | | +--------+ + + + + | 01/08/ | Office | Cardiology | Cristian Mccoy, | | | 2017 | Visit | | MD [address] | | | | | | Dr [address], | | | | | | [place] [address] | | | | | | [phone] | | | | | | | [...]
--- OUTSIDE RECORDS SUMMARY | ~2017-11-13 | XMS | Clinical Summary ---
Demographics + + + | Address | [address] | | | [place] [address] | + + + | Home Phone | | + + + | Preferred Language | Unknown | + + + | Marital Status | | + + + | Yazidism Affiliation | Unknown | + + + | Race | Unknown | + + + | Ethnic Group | Unknown | + + + Author + + + | Author | [facility] | | | and [place] | + + + | Organization | [facility] | | | and E[place] | + + + | Address | Unknown | + + + | Phone | Unavailable | + + + Support + + + + + | Name | Relationship | Address | Phone | + + + + + | Blossmo Rose | ECON | [address] | | | | | [place] | | | | | [address] | | + + + + + Care Team Providers + +------+ + | Care Treatment Counselor Name | Role | Phone | + +------+ + | Maycol Knutson MD | PP | | + +------+ + Allergies + + + +--------+ + | Active Allergy | Reactions | Severity | Noted | Comments | | | | | Date | | + + + +--------+ + | Diltiazem Hcl | | | | | + + + +--------+ + | Lipitor | | | | | + + + +--------+ + | Propranolol Hcl | | | | | + + + +--------+ + Current Medications + + +-------+---------+------+------+-------+ | Prescription | Sig. | Disp. | Refills | Star | End | Statu | | | | | | t | Date | s | | | | | | Date | | | + + +-------+---------+------+------+-------+ | Cholecalciferol | Take 2,000 Units by | | | 11/16 | | Activ | | (VITAMIN D3) 2000 | mouth Daily. | | | 07/05 | | e | | UNITS CAPS | | | | 12 | | | + + +-------+---------+------+------+-------+ | fluticasone | one spray in each | | | 11/16 | | Activ | | (FLONASE) 50 | nostril daily as | | | 20 | | e | | mcg/nasal spray | needed | | | 12 | | | + + +-------+---------+------+------+-------+ | sertraline | 2 tablets daily | | | 11/16 | | Activ | | (ZOLOFT) 100 mg | | | | 07/05 | | e | | tablet | | | | 12 | | | + + +-------+---------+------+------+-------+ | ferrous sulfate | Take 325 mg by mouth | | | 11/16 | | Activ | | 325 mg tablet | 3 times daily. | | | 07/05 | | e | | | | | | 12 | | | + + +-------+---------+------+------+-------+ | levothyroxine | Take 75 mcg by mouth | | | 11/16 | | Activ | | (LEVOTHROID) 75 MCG | Daily. | | | 20 | | e | | tablet | | | | 12 | | | + + +-------+---------+------+------+-------+ | omeprazole | Take 20 mg by mouth | | | 09/1 | | Activ | | (PRILOSEC) 20 mg | 2 times daily. | | | 420 | | e | | capsule | | | | 12 | | | + + +-------+---------+------+------+-------+ | cyanocobalamin | injected | | | 11/16 | | Activ | | (VITAMIN B-12) 1,000 | intramuscularly once | | | 4/20 | | e | | mcg/mL injection | a month | | | 12 | | | + + +-------+---------+------+------+-------+ | acyclovir | Take 400 mg by mouth | | | 091 | | Activ | | (ZOVIRAX) 400 MG | 3 times daily as | | | 4/20 | | e | | tablet | needed. | | | 12 | | | + + +-------+---------+------+------+-------+ | metoclopramide | Take 10 mg by mouth | | | 09/1 | | Activ | | (REGLAN) 10 mg | 4 times daily as | | | 4/20 | | e | | tablet | needed. | | | 12 | | | + + +-------+---------+------+------+-------+ | guaiFENesin | Take 1,200 mg by | | | | | Activ | | (MUCINEX) 600 mg 12 | mouth 2 times daily. | | | | | e | | hr tablet | | | | | | | + + +-------+---------+------+------+-------+ | methotrexate 2.5 | Take 15 mg by mouth | | | | | Activ | | mg tablet | Once a week. | | | | | e | + + +-------+---------+------+------+-------+ | rivaroxaban | Take 20 mg by mouth | | | | | Activ | | (XARELTO) 20 mg | Daily (with dinner). | | | | | e | | tablet | | | | | | | + + +-------+---------+------+------+-------+ | losartan (COZAAR) | Take 100 mg by mouth | | | | | Activ | | 100 MG tablet | Daily. 1/2 daily | | | | | e | + + +-------+---------+------+------+-------+ | diltiazem | Take 120 mg by mouth | | | | | Activ | | (DILT-XR) 120 mg 24 | Daily. | | | | | e | | hr capsule | | | | | | | + + +-------+---------+------+------+-------+ | furosemide (LASIX) | Take 40 mg by mouth | | | | | Activ | | 40 mg tablet | Daily. | | | | | e | + + +-------+---------+------+------+-------+ | folic acid 1 mg | Take 1 mg by mouth | | | | | Activ | | tablet | Daily. | | | | | e | + + +-------+---------+------+------+-------+ | tamsulosin | Take 0.4 mg by mouth | | | 11/16 | | Activ | | (FLOMAX) 0.4 mg CAPS | 2 times daily. | | | 4/20 | | e | | | | | | 12 | | | + + +-------+---------+------+------+-------+ | | Apply topically 2 | | | | | Activ | | nystatin-triamcinolo | times daily. | | | | | e | | ne (MYCOLOG II) | | | | | | | | cream | | | | | | | + + +-------+---------+------+------+-------+ | loratadine | Take 10 mg by mouth | | | | | Activ | | (CLARITIN) 10 mg | Daily. | | | | | e | | tablet | | | | | | | + + +-------+---------+------+------+-------+ | potassium citrate | Take 10 mEq by mouth | | | | | Activ | | (UROCIT-K) 10 mEq SR | 2 times daily. | | | | | e | | tablet | | | | | | | + + +-------+---------+------+------+-------+ | albuterol (PROAIR | Inhale 2 puffs into | | | | | Activ | | HFA) 90 mcg/puff | the lungs every 6 | | | | | e | | inhaler | hours as needed for | | | | | | | | Wheezing. | | | | | | + + +-------+---------+------+------+-------+ | predniSONE | Take 10 mg by mouth | | | | | Activ | | (DELTASONE) 5 mg | Daily. | | | | | e | | tablet | | | | | | | + + +-------+---------+------+------+-------+ | acyclovir | Apply topically | | | | | Activ | | (ZOVIRAX) 5% | every 3 hours. | | | | | e | | ointment | | | | | | | + + +-------+---------+------+------+-------+ | pseudoePHEDrine | Take 30 mg by mouth | | | | | Activ | | (SUDOGEST) 30 mg | every 4 hours as | | | | | e | | tablet | needed for | | | | | | | | Congestion. | | | | | | + + +-------+---------+------+------+-------+ | | Take 1 tablet by | | | | | Activ | | oxyCODONE-acetaminop | mouth every 4 hours | | | | | e | | hen (PERCOCET) 5-325 | as needed for Pain. | | | | | | | mg per tablet | | | | | | | + + +-------+---------+------+------+-------+ | | Inhale 1 puff into | | | | | Activ | | fluticasone-salmeter | the lungs Twice | | | | | e | | ol (ADVAIR) 500-50 | Daily. | | | | | | | mcg/puff diskus | | | | | | | | inhaler | | | | | | | + + +-------+---------+------+------+-------+ | digoxin (LANOXIN) | Take 250 mcg by | | | | | Activ | | 250 mcg tablet | mouth Daily. 1/2 | | | | | e | | | capsule daily | | | | | | + + +-------+---------+------+------+-------+ Active Problems + + + | Problem | Noted Date | + + + | CARPAL TUNNEL SYNDROME | | + + + | HBP (high blood pressure) | | + + + | Atrial fibrillation (HCC) | | + + + | Heart failure (HCC) | | + + + | Raynaud disease | | + + + | Fibromyalgia | | + + + | ASCVD (arteriosclerotic cardiovascular disease) | | + + + | Aortic aneurysm (HCC) | | + + + | NOLA (obstructive sleep apnea) | | + + + | Cancer of vocal cord (HCC) | | + + + + + | Overview: Treated with surgery and radiation | + + + +---+ | Parasomnia | | + +---+ | 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 | | + +---+ Family History + + +------+ + | Medical History | Relation | Name | Comments | + + +------+ + | High blood pressure | Father | | | + + +------+ + + +------+ + + | Relation | Name | Status | Comments | + +------+ + + | Brother | | Alive | | + +------+ + + | Daughter | | Alive | | + +------+ + + | Father | | | Aortic Aneurysm, snore | | | | (Age | | | | | 61) | | + +------+ + + | Mother | | | Alzheimer's | | | | (Age | | | | | 83) | | + +------+ + + | Son | | Alive | | + +------+ + + Social History + + + [...] + | Blood Pressure | 130/78 | 01/18/2015850 PST | + + + + | Pulse | 88 | 01/18/2015850 PST | + + + + | Temperature | - | - | + + + + | Respiratory Rate | 16 | 01/18/2015850 PST | + + + + | Oxygen Saturation | 95% | 01/18/2015850 PST | + + + + | Inhaled Oxygen | - | - | | Concentration | | | + + + + | Weight | 81.6 kg (179 lb 14.4 | 01/18/2015850 PST | | | oz) | | + + + + | Height | 172.7 cm (5' 8") | 11/18/2013 1000 PDT | + + + + | Body Mass Index | 27.35 | 01/18/2015850 PST | + + + + Plan of [...] | + + + + + | Statin Therapy | | | | | (optimal intensity) | 5 | | | + + + + + | Colorectal Cancer | | 03/18/2007 | | | Screening | 8 | | | | (Colonoscopy) | | | | + + + + + | Vaccine: Influenza | | | | | (#1) | 8 | | | + + + + + Results Not on filefrom Last 3 Months Insurance + +--------+ +--------+ +---------+ | Payer | Benefi | Subscriber | Type | Phone | Address | | | t Plan | ID | | | | | | / | | | | | | | Group | | | | | + +--------+ +--------+ +---------+ | MEDICARE | MEDICA | [id number] | Medica | [phone] | | | RE | | re | [phone] | | | | PART A | | | | | | | AND B | | | | | + +--------+ +--------+ +---------+ | AARP | AARP | [id number] | Indemn | [phone] | | | MDCR | | ity | [phone] | | | | SUPPL | | | | | + +--------+ +--------+ +---------+ + +--------+ +--------+ + + | Guarantor Name | Accoun | Relation to | Date | Phone | Billing Address | | | t Type | Patient | of | | | | | | | | | | + +--------+ +--------+ + + | GERMAN ROSE | Person | Self [birth year] Home: | [address] | | | al/Arvind | | 1945 | [phone] | [place] | | | irish | | | [phone] | [address] | + +--------+ +--------+ + +
--- OUTSIDE RECORDS SUMMARY | ~2017-11-13 | XMS | Encounter Summary ---
Demographics + + + | Address | [address] | | | [place] [address] | + + + | Home Phone | | + + + | Preferred Language | Unknown | + + + | Marital Status | | + + + | Gnosticism Affiliation | 1028 | + + + | Race | Unknown | + + + | Ethnic Group | Unknown | + + + Author + + + | Author | [facility] | + + + | Organization | [facility] [employer] [facility] | + + + | Address | Unknown | + + + | Phone | Unavailable | + + + Support + + + + + | Name | Relationship | Address | Phone | + + + + + | Blossom Rose | ECON | [address] | | | | | [place] | | | | | [address] | | + + + + + | Message,Detailed | ECON | Unknown | | + + + + + Care Team Providers + +------+ + | Care Family Service Aide Name | Role | Phone | + [...] + + | 10/16/ | Ancillary | [facility] | See, Medical | Pain | | 2018 | [facility] | [facility] | Record | | | | | Nuclear Medicine | | | | | | [address] | | | | | | [place] [address] | | | | | | [phone] | | | +--------+ + + [...] Dr | | | | | | [place] [address] | | | | | | [phone] | | | | | | | | +--------+ + + + + | 12/04/ | Office | Cardiology | Cristian Mccoy, | | | 2017 | Visit | | MD [address] | | | | | | Dr [address], | | | | | | [place] [address] | | | | | | [phone] | | | | | | | | +--------+ + + + + | 01/08/ | Office | Cardiology | Paul Mccoyvirgilio, | | | 2017 | Visit | | MD [address] | | | | | | [address], | | | | | | [place] [address] | | | | | | [phone] | | | | | | | [...] [place] | | | | | | [address] | | | | | | | [...] | [address] | [place] [address] | | + + + + + in this encounter Visit Diagnoses + + | Diagnosis | + + | Pain | + + | Generalized pain | + +"
--- OUTSIDE RECORDS SUMMARY | ~2017-11-13 | XMS | Encounter Summary ---
Demographics + + + | Address | [address] | | | [place] [address] | + + + | Home Phone | | + + + | Preferred Language | Unknown | + + + | Marital Status | | + + + | Jehovah'S Witness Affiliation | 1028 | + + + | Race | Unknown | + + + | Ethnic Group | Unknown | + + + Author + + + | Author | [facility] | + + + | Organization | [facility] | + + + | Address | Unknown | + + + | Phone | Unavailable | + + + Support + + + + + | Name | Relationship | Address | Phone | + + + + + | Blossom oRse | ECON | [address] | | | | | [place] | | | | | [address] | | + + + + + | Message,Detailed | ECON | Unknown | | + + + + + Care Team Providers + +------+ + | Care Floral Arranger Name | Role | Phone | + [...] + | 10/30/ | Telephone | [facility] | Bhavesh Huggins, | Epistaxis | | 2018 | | Cardiology [place] | [address] | | | | | [address] | [place], | | | | | [place], [place] | [place] [address] | | | | | [address] | [phone] | | | | | [phone] | | | +--------+ + + + [...] | | | | | | [place] [address] | | | | | | [phone] | | | | | | | | +--------+ + + + + | 12/04/ | Office | Cardiology | Cristian Mccoy, | | | 2017 | Visit | | [address] | | | | | | [address], | | | | | | [place] [address] | | | | | | [phone] | | | | | | | | +--------+ + + + + | 01/08/ | Office | Cardiology | Cristian Mccoy, | | | 2017 | Visit | | MD [address] | | | | | | [address], | | | | | | [place] [address] | | | | | | [phone] | | | | | | | [...] [place] | | | | | | [address] | | | | | | | | +--------+ + + + + as of this encounter Visit Diagnoses Not on filein this encounter"
--- OUTSIDE RECORDS SUMMARY | ~2017-11-13 | XMS | Encounter Summary ---
Demographics + + + | Address | [address] | | | [place] [address] | + + + | Home Phone | | + + + | Preferred Language | Unknown | + + + | Marital Status | | + + + | Orthodox Affiliation | 1028 | + + + | Race | Unknown | + + + | Ethnic Group | Unknown | + + + Author + + + | Author | [facility] | + + + | Organization | [facility] [employer] [facility] | + + + | Address | Unknown | + + + | Phone | Unavailable | + + + Support + + + + + | Name | Relationship | Address | Phone | + + + + + | Blossom Rose | ECON | [address] | | | | | [place] | | | | | [address] | | + + + + + | Message,Detailed | ECON | Unknown | | + + + + + Care Team Providers + +------+ + | Care Toll Operator Name | Role | Phone | [...] | | | | | artery, | [place], [place] | [address] | | | | | angina | [address] | Phone: | | | | | presence | Phone: | [phone] | | | | | unspecified, | [phone] | Fax: | | | | | unspecified | Fax: | [phone] | | | | | vessel or | [phone] | | | | | | lesion type, | | | | | | | unspecified | | | | | | | whether | | | | | | | [place] or | | | | | | [...] [place] | | | | | [place] | [place], | [address] Phone: | | | | | coronary | [place] [address] | [phone] | | | | | artery | Phone: | Fax: | | | | | without | [phone] | [phone] | | | | | angina | Fax: | | | | | | pectoris | [phone] | | | | | | Procedures | | | | | | | Consult | | | +--------+--------+ + + + + Encounter Details +--------+ + + + + | Date | Type | Department | Care Team | Description | +--------+ + + + + | 10/07/ | Initial | [facility] [employer] | Cristian Mccoy, | Encounter for annual | | 2018 | consult | Cardiology [place] | [address] | health examination | | | | [address] | [address], | (Primary Dx); | | | | [place], [place] | [place] [address] | Atherosclerosis of | | | | [address] | [phone] | coronary artery, | | | | [phone] | | angina presence | | | | | | unspecified, | | | | | | unspecified vessel | | | | | | or lesion type, | | | | | | unspecified whether | | | | | | [place] or | | | | | | [...] been controlled. Used to follow-up with an [facility] last time seen was in 2004, [...] r) times daily before meals and nightly. [id number]-[id number] PO Take 1 tablet by mouth daily. 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 Imipramine Other (See Comments) Urinary retention Metoprolol [...] | | | | | [place] [address] | | | | | | [phone] | | | | | | | | +--------+ + + + + | 12/04/ | Office | Cardiology | Cristian Mccoy, | | | 2017 | Visit | | MD [address] | | | | | | Dr [address], | | | | | | [place] [address] | | | | | | [phone] | | | | | | | | +--------+ + + + + | 01/08/ | Office | Cardiology | Cristian Mccoy, | | | 2017 | Visit | | MD [address] | | | | | | [address], | | | | | | [place] [address] | | | | | | [phone] | | | | | | | [...] [place] | | | | | | [address] | | | | | | | [...] unspecified whether | | | | | [place] or | | | | | transplanted [...] whether | | | | | | [place] or | | | | | | transplanted heart | | + +--------+ + + + in this encounter Results [facility] STANDARD 12 LEAD (10/07/2017 1:13 PM) + [...] + + + + | Calculated R [place] | -77 | degrees | [facility] | + + + + + | Calculated T [place] | 38 | degrees | [facility] E[facility] [...] | | | | | by [facility] [place] Read Only, | | | | | [facility] [address]ini ([id number]), | | | | | scientific publications editor Elbert Portillo | | | | | (253) on 10/07/2017 | | | | | 1:52:40 PM | | | + + + + + + + + + + | Performing | Address | City/State/Zipcode | Phone Number | | Organization | | | | + + + + + | [facility] | [address] | [place] [address] | | + + + + + in this encounter Visit Diagnoses + + | Diagnosis | + + | Encounter for annual health examination - Primary | + + | Routine general medical examination at a health care facility | + + | Atherosclerosis of coronary artery, angina presence unspecified, unspecified vessel or | | lesion type, unspecified whether [place] or transplanted heart | + + | [...]
--- OUTSIDE RECORDS SUMMARY | ~2017-11-13 | XMS | Clinical Summary ---
Demographics + + + | Address | [address] | | | [place] [address] | + + + | Home Phone | | + + + | Preferred Language | Unknown | + + + | Marital Status | | + + + | Confucianist Affiliation | 1028 | + + + | Race | Unknown | + + + | Ethnic Group | Unknown | + + + Author + + + | Author | [facility] | + + + | Organization | [facility] | + + + | Address | Unknown | + + + | Phone | Unavailable | + + + Support + + + + + | Name | Relationship | Address | Phone | + + + + + | Blossom Rose | ECON | [address] | | | | | [place] | | | | | [id number] | | + + + + + | Message,Detailed | ECON | Unknown | | + + + + + Care Team Providers + +------+ + | Care Glassware Verifier Name | Role | Phone | + [...] (See Comments) | Medium | 09/14/19 | MANAGER RESEARCH AND DEVELOPMENT | | | | | 15 | [...] (See Comments) | Medium | 09/14/19 | cdoy's | | | | | 15 | [...] | | + + + +---------+------+------+-------+ | rivaroxaban | Take 20 mg by mouth | | | | | Activ | | (XARELTO) 20 MG | daily with dinner. | | | | | e [...] | Activ | | HYDROcodone-acetamin | mouth every 6 (six) | | | | | e | | ophen (NORCO) | hours as [...] e | + + + +---------+------+------+-------+ | azelastine | 1 spray by Nasal | 30 mL | 12 | 04/1 | | Activ | | (ASTELIN) 0.1 % | route 2 (two) times | | | 1/20 | | e | | nasal spray | daily. Use in each | | | 17 | | | | | nostril as directed | | | | | | + + + +---------+------+------+-------+ | fluticasone | one spray in each | | | 09/1 | | Activ | | (FLONASE) 50 MCG/ACT | nostril daily as | | | 4/20 | | e | | nasal | needed | | | 12 | | | + + + +---------+------+------+-------+ | ofloxacin | | | | 04/0 | | Activ | | (OCUFLOX) 0.3 % | | | | 9/20 | | [...] + +---------+------+------+-------+ | | Apply to eye every | | | | | Activ | | bacitracin-polymyxin | 12 (twelve) hours. | | | | | e | | b (POLYSPORIN) | | | | | | | | ophthalmic ointment | | | | | | | + + + +---------+------+------+-------+ | | Take 1 tablet by | | | | | Activ | | [id number] | mouth daily. | | | | [...] + + +---------+------+------+-------+ | azaTHIOprine | Take 50 mg by [...] + + +---------+------+------+-------+ | atorvastatin | Take 1 tablet by | 30 | 2 | 08/1 | 08/1 | Activ | | (LIPITOR) 40 MG | mouth nightly. | tablet | | 1/20 | 1/20 | e | | tablet | | | | 18 | 19 | | + + + +---------+------+------+-------+ | predniSONE | Take 4 tablets by | 30 | | 08/1 | | Activ | | (DELTASONE) 2.5 MG | mouth daily. Takes | tablet | | 1/20 | | e | | tabletIndications: | [...] | | + + + +---------+------+------+-------+ | clopidogrel | Take 1 tablet by | 90 | 0 | 08/1 | 08/1 | Activ | | (PLAVIX) 75 MG | mouth daily. | tablet | | 2/20 | 2/20 | e | | tablet | | | | 18 | 19 | | + + + +---------+------+------+-------+ | | Inhale 2 puffs into | 1 | 0 | 08/1 | 08/1 | Activ | | budesonide-formotero | the lungs 2 (two) | Inhaler | | 1/20 | 1/20 | e | | l (SYMBICORT) | times daily. | | | 18 | 19 | | | 160-4.5 MCG/ACT | | | | | | | | inhaler | | | | | | | + + + +---------+------+------+-------+ | | Take 1 tablet by | 10 | 0 | 08/1 | | Activ | | amoxicillin-clavulan | mouth every 12 | tablet | | 1/20 | | e | | ate (AUGMENTIN) | (twelve) hours. | | | 18 | | | | 875-125 MG per | | | | | | | | tabletIndications: | | | | | | | | Aspiration Pneumonia | | | | | | | + + + +---------+------+------+-------+ | diltiazem | Take 60 mg by mouth | | | | 08/1 | Disco | | (CARDIZEM) 120 MG | daily. | | | | 1/20 | ntinu | | tablet | | | | | 18 | ed | + + + +---------+------+------+-------+ | | Apply topically 2 | | | | 08/1 | Disco | | nystatin-triamcinolo | (two) times daily. | | | | 1/20 | ntinu | | ne (MYCOLOG) | | | | | 18 | ed | | ointment | | | | | | | + + + +---------+------+------+-------+ | omeprazole | Take 20 mg by mouth | | | | 08/1 | Disco | | (PRILOSEC) 20 MG | every morning before | | | | 1/20 | ntinu | | capsule | breakfast. | | | | 18 | ed | + + + +---------+------+------+-------+ | pseudoephedrine | Take 30 mg by mouth | | | | 08/1 | Disco | | (SUDAFED) 30 MG | daily. | | | | 1/20 | ntinu | | tablet | | | | | 18 | ed | + + + +---------+------+------+-------+ | nystatin | Apply topically 2 | | | | 08/1 | Disco | | (MYCOSTATIN) cream | (two) times daily. | | | | 1/20 | ntinu | | | | | | | 18 | ed | + + + +---------+------+------+-------+ | predniSONE | Take 10 mg by mouth | | | | 08/1 | Disco | | (DELTASONE) 2.5 MG | daily. Takes 2 5mg | | | | 1/20 | ntinu | | tabletIndications: | tablets every other | | | | 18 | ed | | Patient takes 10mg | day | | | | | | | daily | | | | | | | + + + +---------+------+------+-------+ | clopidogrel | Take 1 tablet by | 30 | 2 | 08/1 | 081 | Disco | | (PLAVIX) 75 MG | mouth daily. | tablet | | 2/20 | 1/20 | ntinu | | tablet | | | | 18 | 18 | ed | + + + +---------+------+------+-------+ | clopidogrel | Take 1 tablet by | 30 | 0 | 08/1 | 08/1 | Disco | | (PLAVIX) 75 MG | mouth daily. | tablet | | 2/20 | 1/20 | ntinu | | tablet | | | | 18 | 18 | ed | + + + +---------+------+------+-------+ | | Inhale 2 puffs into | 1 | 0 | 08/1 | 08/1 | Disco | | budesonide-formotero | the lungs 2 (two) | Inhaler | | / | 04/06 | ntinu | | l (SYMBICORT) | times daily. | | | 18 | 18 | ed | | 160-4.5 MCG/ACT | | | | | | | | inhaler | | | | | | | + + + +---------+------+------+-------+ Active Problems + + + | Problem | Noted Date | + + + | Moderate protein-calorie malnutrition (HCC) | 10/24/2017 | + + + | Severe protein-calorie malnutrition (HCC) | 10/24/2017 | + + + | Dysphagia | 10/24/2017 | + + + | Aspiration pneumonia (HCC) | 10/24/2017 | + + + | Precordial pain | 10/23/2017 | + + + | Hemoptysis | 10/23/2017 | + + + | Multifocal pneumonia | 10/23/2017 | + + + | NSTEMI (non-ST elevated myocardial infarction) (HCC) | 10/23/2017 | + + + | Chronic bronchitis (HCC) | 10/23/2017 | + + + | Chronic maxillary sinusitis | 10/23/2017 | + + + | Obstructive sleep apnea | 10/23/2017 | + + + | Peptic ulcer disease | 10/23/2017 | + + + | Aortic aneurysm (HCC) | 10/07/2017 | + + + | ASCVD (arteriosclerotic cardiovascular disease) | 10/07/2017 | + + + | Chronic atrial fibrillation (HCC) | 10/07/2017 | + + + | Cancer of vocal cord (HCC) | 10/07/2017 | + + + + + | Overview: Overview: | | Treated with surgery and radiation | + + + + + | Essential hypertension | 10/07/2017 | + + + Encounters +--------+ + + + + | Date | Type | Specialty | Care Team | Description | +--------+ + + + + | 10/30/ Telephone | | Bhavesh Huggins, | Epistaxis | | 2017 | | | MD | | +--------+ + + + + | 10/27/ | Telephone | | Bhavesh Huggins, | Diarrhea | | 2017 | | | MD | | +--------+ + + + + | 10/24/ | Procedure | | | | | 2017 | Pass | | | | +--------+ + + + + | 10/24/ | Procedure | | | | | 2018 | Pass | | | | +--------+ + + + + | 10/23/ | Hospital | | [facility] | Dysphagia, | | 2018 - | Encounter | | MD Audie Umaña, | unspecified type | | | | | MD Junie | (Primary Dx); | | 10/26/ | | | | Thoracic aortic | | 2018 | | | | aneurysm without | | | | | | rupture (HCC); ASCVD | | | | | | (arteriosclerotic | | | | | | cardiovascular | | | | | | disease); Chronic | | | | | | atrial fibrillation | | | | | | (HCC); Essential | | | | | | hypertension; | | | | | | Precordial pain | +--------+ + + + + +---+ + | | Discharge | | | Summaries | | | - Audie, | | | MD Junie | | | - | | | 10/26/2017 | | | 10:43 AM | | | PDT | | | Formatting | | | of this | | | note may be | | | different | | | from the | | | original.Pa | | | tient | | | ID:German Sidhu | | | [id number] | | | [phone] | | | y.o. | | | [phone] | | | date: | | | 10/23/2017Dis | | | charge date | | | and time: | | | | | | 10/26/17Admi | | | tting | | | Physician: | | | Tameka Umaña | | | Hephingcaridad, | | | MD | | | Discharge | | | Physician: | | | Dr.Joshi | | | MDConsults: | | | | | | | | | Primary | | | Discharge | | | Diagnoses: | | | Precordial | | | pain | | | [R07.2]ASCV | | | D | | | (arterioscl | | | erotic | | | cardiovascu | | | lar | | | disease) | | | [I25.10]Ess | | | ential | | | hypertensio | | | n | | | [I10]Chroni | | | c atrial | | | fibrillatio | | | n (HCC) | | | [I48.2]Thor | | | acic aortic | | | aneurysm | | | without | | | rupture | | | (HCC) | | | [I71.2]Hemo | | | ptysisAspir | | | ation | | | PNAIron def | | | | | | anemiaDisch | | | arged | | | Condition: | | | goodSignifi | | | cant | | | Diagnostic | | | Studies: | | | Lab Results | | | Component | | | Value Date | | | WBC 5.20 | | | 10/26/2017 | | | HGB 9.6 | | | (L) | | | 10/26/2017 | | | HCT 28.4 | | | (L) | | | 10/26/2017 | | | MCV 76.7 | | | (L) | | | 10/26/2017 | | | PLT 132 | | | (L) | | | 10/26/2017 | | | GLUCOSE | | | Date Value | | | Ref Range | | | Status | | | 10/26/2017 | | | 101 (H) 65 | | | - 99 mg/dL | | | Final BUN | | | Date Value | | | Ref Range | | | Status | | | 10/26/2017 | | | 12 8 - 25 | | | mg/dL Final | | | CREATININE | | | Date Value | | | Ref Range | | | Status | | | 10/26/2017 | | | 1.1 0.70 - | | | 1.30 mg/dL | | | Final | | | BUN/CREAT | | | Date Value | | | Ref Range | | | Status | | | 10/26/2017 | | | 11 Final | | | TOTAL | | | PROTEIN | | | Date Value | | | Ref Range | | | Status | | | 10/26/2017 | | | 5.5 (L) 6.3 | | | - 8.2 g/dL | | | Final | | | GLOBULIN | | | Date Value | | | Ref Range | | | Status | | | 10/26/2017 | | | 3.0 1.3 - | | | 4.9 g/dL | | | Final TBIL | | | Date Value | | | Ref Range | | | Status | | | 10/26/2017 | | | 0.7 0.1 - | | | 1.5 mg/dL | | | Final ALT | | | Date Value | | | Ref Range | | | Status | | | 10/26/2017 | | | 14 10 - 65 | | | U/L Final | | | AST Date | | | Value Ref | | | Range | | | Status | | | 10/26/2017 | | | 16 10 - 45 | | | U/L Final | | | SODIUM Date | | | Value Ref | | | Range | | | Status | | | 10/26/2017 | | | 143 135 - | | | 145 mmol/L | | | Final | | | POTASSIUM | | | Date Value | | | Ref Range | | | Status | | | 10/26/2017 | | | 3.3 (L) 3.5 | | | - 4.9 | | | mmol/L | | | Final | | | CHLORIDE | | | Date Value | | | Ref Range | | | Status | | | 10/26/2017 | | | 108 99 - | | | 109 mmol/L | | | Final CO2 | | | Date Value | | | Ref Range | | | Status | | | 10/26/2017 | | | 26 23 - 32 | | | mmol/L | | | Final ANION | | | GAP AGAP | | | Date Value | | | Ref Range | | | Status | | | 10/26/2017 | | | 12 5 - 20 | | | mmol/L | | | Final Xr | | | Chest 2 | | | ViewResult | | | Date: | | | 10/26/2017GA | | | RY D ROSE | | | 1945 | | | 72 years | | | Male XR | | | CHEST 2 | | | VIEW | | | FRONTAL AND | | | LATERAL | | | 10/26/2017 | | | 9:52 AM | | | INDICATION: | | | Shortness | | | of breath | | | with chest | | | pain | | | COMPARISON: | | | 10/24/2017 | | | TECHNIQUE: | | | Two view | | | chest, PA | | | and lateral | | | views | | | FINDINGS: | | | Median | | | sternotomy | | | wires are | | | maintained. | | | The | | | cardiac | | | silhouette | | | is | | | borderline | | | enlarged. | | | There is no | | | | | | mediastinal | | | widening | | | or shift. | | | Mild | | | calcificati | | | on of the | | | aortic arch | | | is | | | present. | | | There is | | | improving | | | aeration of | | | the left | | | upper lobe. | | | Some | | | residual | | | opacities | | | remain | | | along the | | | lower lobes | | | | | | bilaterally | | | . The | | | pulmonary | | | markings | | | are normal | | | in caliber. | | | There is | | | mild | | | degenerativ | | | e disc | | | disease of | | | the | | | thoracic | | | spine. 1. | | | There is | | | improved | | | aeration of | | | the left | | | upper lobe. | | | 2. Hazy | | | opacities | | | throughout | | | the lung | | | may reflect | | | some | | | residual | | | acute | | | pneumonitis | | | . | | | Electronica | | | lly signed | | | by Sharan | | | P Reeves, | | | MD on | | | 10/26/2017 | | | 10:02 AMXr | | | Chest 2 | | | ViewResult | | | Date: | | | 10/24/2017HIS | | | TORY: | | | Precordial | | | chest pain. | | | Question | | | pneumonia. | | | COMPARISON: | | | 10/23/17. | | | TECHNIQUE: | | | PA and | | | lateral | | | films of | | | the chest. | | | FINDINGS: | | | Median | | | sternotomy. | | | Heart size | | | is upper | | | normal. | | | Pulmonary | | | venous | | | congestion. | | | Bilateral | | | perihilar | | | mixed | | | interstitia | | | l and | | | airspace | | | infiltrates | | | again | | | noted, | | | essentially | | | unchanged. | | | No | | | effusions. | | | Subtle | | | thickening | | | of the | | | major and | | | minor | | | fissures. | | | Mild | | | degenerativ | | | e changes | | | of the | | | spine. | | | Osteopenia. | | | 1. | | | Borderline | | | cardiac | | | enlargement | | | , with | | | probable | | | pulmonary | | | edema. | | | Atypical | | | pneumonitis | | | seems less | | | likely. | | | Electronica | | | lly signed | | | by Harish R | | | Castillo, MD | | | on 10/24/2017 | | | 11:34 | | | AMX-ray | | | Chest 2 | | | View | | | Frontal & | | | LateralResu | | | lt Date: | | | 10/23/2017Thi | | | s is a | | | non-reporta | | | ble | | | procedure | | | without a | | | radiologist | | | report and | | | is used | | | for image | | | storage | | | onlyCt Head | | | Without | | | ContrastRes | | | ult Date: | | | 10/23/2017Thi | | | s is a | | | non-reporta | | | ble | | | procedure | | | without a | | | radiologist | | | report and | | | is used | | | for image | | | storage | | | onlyCt | | | Chest | | | Without | | | ContrastRes | | | ult Date: | | | 10/24/2017HIS | | | TORY: 72 | | | years | | | year-old | | | Male, | | | hemoptysis. | | | TECHNIQUE: | | | CT through | | | the chest. | | | | | | Noncontrast | | | | | | examination | | | . Automatic | | | dose | | | adjustment | | | to minimize | | | patient | | | exposure. | | | PRIOR | | | EXAMINATION | | | : Earlier | | | chest | | | radiograph. | | | FINDINGS: | | | [employer] | | | demonstrate | | | s | | | cardiomegal | | | y, sternal | | | wires and | | | dense | | | reticular | | | interstitia | | | l lung | | | disease | | | throughout | | | the left | | | mid chest. | | | Lung | | | windows | | | demonstrate | | | bilateral | | | reticular | | | and | | | confluent | | | infiltrates | | | throughout | | | mid lower | | | lung | | | pack. In | | | the | | | posterior | | | medial left | | | lung on | | | image 81 | | | series 3 in | | | underlying | | | mass would | | | be | | | difficult | | | to exclude, | | | but this | | | is simply a | | | larger | | | multiple | | | similar | | | findings | | | throughout | | | both lungs. | | | | | | Inflammator | | | y nodules | | | and/or | | | inflammator | | | y masses | | | are very | | | plausibly | | | superimpose | | | d In the | | | mid central | | | superior | | | left lung | | | the lung | | | disease is | | | more cystic | | | in | | | appearance, | | | asymmetric | | | | | | centrilobul | | | ar | | | emphysema/C | | | OPD and | | | superimpose | | | d edema | | | edema Bone | | | windows | | | demonstrate | | | | | | degenerativ | | | e and | | | postprocedu | | | ral | | | changes, | | | without | | | acute | | | appearing | | | lesion or | | | active | | | fracture. | | | The | | | sternotomy | | | is healed. | | | Nonaggressi | | | ve and | | | degenerativ | | | e changes | | | not | | | uncommon | | | for age. | | | What is | | | seen of the | | | upper | | | abdomen | | | demonstrate | | | s fatty | | | liver. | | | Splenomegal | | | y. No | | | adenopathy | | | or fluid | | | collection | | | discernible | | | . Large | | | hiatus | | | hernia. | | | Within the | | | chest dense | | | coronary | | | calcificati | | | on, | | | interventio | | | nal | | | changes, | | | diffuse | | | cardiac | | | megaly and | | | hilar | | | vascular | | | congestion | | | symmetrical | | | ly | | | distributed | | | in midlung | | | pack. | | | Changes | | | post CABG. | | | 1. At the | | | very least | | | there is | | | pulmonary | | | vascular | | | congestion, | | | edema-and | | | centrilobul | | | ar | | | emphysema | | | is | | | superimpose | | | d 2. | | | Pulmonary | | | infiltrates | | | are | | | asymmetric | | | and | | | throughout | | | the left | | | hemithorax. | | | This could | | | be due to | | | superimpose | | | d infection | | | of the | | | left upper | | | lung and | | | there is a | | | small | | | effusion | | | also 3. | | | Lastly, | | | there are | | | inflammator | | | y appearing | | | airspace | | | or | | | infiltrativ | | | e nodules | | | superimpose | | | d | | | throughout | | | Will be | | | important | | | to repeat | | | this | | | examination | | | when the | | | patient's | | | acute | | | issues are | | | resolved to | | | evaluate | | | for | | | underlying | | | lesion/mass | | | | | | Electronica | | | lly signed | | | by Shubham | | | S Andrea, | | | MD on | | | 10/24/2017 | | | 12:01 | | | PMX-ray | | | Swallowing | | | Function | | | VideoResult | | | Date: | | | 10/24/2017Thi | | | s is a | | | non-reporta | | | ble | | | procedure | | | without a | | | radiologist | | | report and | | | is used | | | for image | | | storage | | | onlyCl | | | Coronary | | | Angio With | | | GraftsResul | | | t Date: | | | 10/25/2017Ac | | | cession: | | | [id number] | | | | | | | | | | | | | | | | | | | | | __ DATE OF | | | : | | | 1945. | | | PROCEDURE: | | | 1. Right | | | femoral | | | access with | | | ultrasound | | | guidance. | | | 2. Left | | | heart | | | catheteriza | | | tion. 3. | | | Coronary | | | angiogram. | | | 4. SVG | | | angiogram | | | to the RCA. | | | 5. SVG | | | angiogram | | | to the left | | | | | | circumflex. | | | 6. GRIER to | | | LAD | | | angiogram. | | | INDICATION: | | | This is a | | | | | | 72-year-old | | | male who | | | presented | | | to the | | | hospital | | | because of | | | shortness | | | of breath, | | | pulmonary | | | edema, and | | | elevation | | | of cardiac | | | enzymes. | | | For further | | | details, | | | refer to my | | | | | | consultatio | | | n note. | | | Given the | | | above | | | findings, | | | left heart | | | catheteriza | | | tion was | | | recommended | | | . The | | | patient had | | | previous | | | history of | | | CABG times | | | 4 in 1995. | | | PROCEDURE | | | NOTE: The | | | patient was | | | brought | | | electively | | | to the | | | heart | | | catheteriza | | | tion lab. | | | Consent was | | | obtained | | | after | | | reviewing | | | risks and | | | benefits. | | | Timeout was | | | done at | | | the | | | bedside. | | | The patient | | | was | | | prepped in | | | the usual | | | sterile | | | manner, | | | received IV | | | fentanyl | | | via | | | independent | | | observer. | | | Right | | | groin was | | | anesthetize | | | d with 1 | | | percent | | | lidocaine. | | | Using | | | ultrasound | | | and a | | | micropunctu | | | re needle, | | | right | | | femoral | | | access was | | | obtained. | | | A 5-Marshallese | | | sheath was | | | introduced | | | without any | | | | | | difficulty. | | | A 0.035 | | | wire was | | | used and | | | advanced | | | under | | | fluoroscopi | | | c guidance | | | into the | | | ascending | | | aorta. A | | | 5-Marshallese | | | JL4 | | | catheter | | | was used | | | and | | | advanced | | | over the | | | wire and | | | placed | | | selectively | | | in the | | | left | | | coronary | | | cusp. Wire | | | was | | | removed. | | | Catheter | | | was | | | flushed. | | | Selectively | | | engaged | | | the left | | | coronary | | | system. | | | Contrast | | | was | | | injected. | | | Multiple | | | views were | | | obtained. | | | Exchange | | | over the | | | wire was | | | done with | | | JR4 | | | catheter | | | that was | | | placed | | | selectively | | | in the | | | right | | | coronary | | | cusp, | | | selectively | | | engaged | | | the right | | | coronary | | | artery, and | | | multiple | | | views were | | | obtained. | | | Attempted | | | to engage | | | the SVG to | | | RCA and the | | | obtuse | | | marginal | | | with the | | | JR4 | | | catheter; | | | however, | | | was | | | unsuccessfu | | | l. Then | | | JR4 | | | catheter | | | was used to | | | cannulate | | | the left | | | subclavian | | | artery and | | | then a long | | | 0.035 wire | | | was used | | | to exchange | | | with a | | | GRIER | | | catheter | | | that | | | selectively | | | engaged | | | the GRIER | | | graft and | | | multiple | | | views were | | | obtained. | | | Exchange | | | over the | | | wire was | | | done with a | | | 5-Marshallese | | | multipurpos | | | e catheter | | | that | | | selectively | | | engaged | | | the right | | | SVG to RCA | | | graft. | | | Multiple | | | views were | | | obtained. | | | Exchange | | | over the | | | wire was | | | done with | | | 5-Marshallese | | | AL1 | | | catheter | | | that | | | selectively | | | engaged | | | the SVG to | | | left | | | circumflex | | | system | | | graft. | | | Multiple | | | views were | | | obtained. | | | Finally, | | | the | | | catheter | | | was removed | | | over the | | | wire. | | | Hemostasis | | | was | | | achieved by | | | TR band. | | | CONTRAST | | | USED: 100 | | | mL. BLOOD | | | LOSS: Less | | | than 10. | | | COMPLICATIO | | | NS: None. | | | HEMOSTASIS: | | | By manual | | | pressure. | | | ANGIOGRAPHI | | | C FINDINGS: | | | 1. Left | | | main is | | | large | | | caliber | | | vessel with | | | normal | | | origin. | | | Bifurcates | | | to LAD and | | | left | | | circumflex | | | with mild | | | diffuse | | | disease. 2. | | | LAD is 100 | | | percent | | | proximally | | | occluded. | | | 3. Left | | | circumflex | | | is a small | | | to moderate | | | vessel | | | that is | | | severely | | | calcified, | | | has | | | multiple | | | lesions and | | | diffusely | | | diseased. | | | Distally it | | | is very | | | small and | | | severely | | | calcified. | | | Has 90 | | | percent | | | proximal | | | and | | | subtotal | | | occlusion | | | distal. | | | However | | | again | | | smaller and | | | severely | | | calcified. | | | No | | | competitive | | | flow was | | | seen. 4. | | | RCA has 100 | | | percent | | | ostial | | | occlusion. | | | 5. SVG to | | | RCA is | | | widely | | | patent with | | | mildly | | | diffuse | | | disease. 6. | | | SVG to | | | left | | | circumflex | | | system is | | | diffusely | | | diseased | | | with severe | | | | | | degenerativ | | | e disease; | | | however, | | | occluded at | | | the | | | insertion | | | site. The | | | jump graft | | | of the 2nd | | | obtuse | | | marginal is | | | occluded. | | | GRIER to | | | LAD is | | | widely | | | patent. | | | CONCLUSION: | | | 1. Severe | | | 3-vessel | | | coronary | | | artery | | | disease. 2. | | | Patent SVG | | | to RCA and | | | GRIER to | | | LAD. 3. | | | Occluded | | | SVG to the | | | left | | | circumflex | | | system, | | | which is a | | | jump graft. | | | 4. | | | Severely | | | calcified | | | left | | | circumflex, | | | which is | | | small | | | caliber | | | severely | | | calcified. | | | However, | | | not | | | amenable to | | | any PCI. | | | RECOMMENDAT | | | IONS: | | | Given the | | | above | | | findings, | | | the patient | | | will | | | continue | | | medical | | | therapy for | | | coronary | | | artery | | | disease. | | | Will be | | | restarted | | | on | | | antiplatele | | | t therapy | | | and will be | | | on | | | optimizatio | | | n of blood | | | pressure | | | control, | | | statin | | | therapy, | | | and will be | | | re-started | | | on | | | anticoagula | | | tion for | | | atrial | | | fibrillatio | | | n. Further | | | | | | recommendat | | | ions to | | | follow. | | | Read by | | | MERSHED | | | ALSAMARA, | | | MD | | | 10/24/2017 | | | 07:56 P | | | [employer] | | | lly signed | | | by Mershed | | | Alsamara MD | | | on | | | 10/25/2017 | | | 6:24 AMEcho | | | Cardiac | | | Adult | | | CompleteRes | | | ult Date: | | | 10/24/2017Pat | | | ient Name: | | | AILYN GERMAN | | | Date of | | | : | | | 1945 | | | Accession: | | | [id number] | | | Performing | | | Physician: | | | Mershed | | | Alsamara | | | | | | | | | | | | | | | | | | | | | INDICATIONS | | | | | | | | | sob,h/o 4 | | | cabg | | | CONCLUSIONS | | | | | | | | | 1. The | | | left | | | ventricle | | | cavity is | | | normal in | | | size, mild | | | concentric | | | hypertrophy | | | and | | | normal | | | systolic | | | function EF | | | 55%. Mild | | | inferior | | | and | | | inferolater | | | al | | | hypokinetic | | | segments. | | | 2. Mild | | | degenerativ | | | e changes | | | in the | | | aortic and | | | mitral | | | valves. 3. | | | There is no | | | | | | pericardial | | | effusion. | | | FINDINGS | | | -------- | | | ECG rhythm: | | | Atrial | | | fibrillatio | | | n. Study: A | | | | | | 2-dimension | | | al | | | transthorac | | | ic | | | echocardiog | | | alina with | | | m-mode, | | | spectral | | | and color | | | flow | | | Doppler was | | | perfomed. | | | Study: This | | | was a | | | technically | | | adequate | | | study. Left | | | Ventricle: | | | Overall | | | left | | | ventricular | | | systolic | | | function is | | | low-normal | | | with, an | | | EF 55 %. | | | Left | | | Ventricle: | | | The left | | | ventricle | | | cavity size | | | is normal. | | | Left | | | Ventricle: | | | There is | | | mild | | | concentric | | | left | | | ventricular | | | | | | hypertrophy | | | . Right | | | Ventricle: | | | The RV was | | | not well | | | visualized. | | | Left | | | Atrium: The | | | left | | | atrium is | | | mildly | | | dilated. | | | Right | | | Atrium: The | | | right | | | atrial size | | | is normal. | | | Aortic | | | Valve: The | | | aortic | | | valve is | | | trileaflet. | | | Aortic | | | Valve: The | | | aortic | | | valve is | | | mildly | | | calcified. | | | Aortic | | | Valve: | | | There is | | | mild aortic | | | | | | regurgitati | | | on. Mitral | | | Valve: | | | There is | | | trace | | | mitral | | | regurgitati | | | on. Mitral | | | Valve: Mild | | | mitral | | | annular | | | calcificati | | | on present. | | | Tricuspid | | | Valve: The | | | tricuspid | | | valve | | | appears | | | structurall | | | y normal. | | | Tricuspid | | | Valve: | | | Trace | | | tricuspid | | | regurgitati | | | on present. | | | Tricuspid | | | Valve: | | | There is no | | | evidence | | | of | | | pulmonary | | | hypertensio | | | n. Pulmonic | | | Valve: The | | | pulmonic | | | valve is | | | normal. | | | Pulmonic | | | Valve: Mild | | | pulmonic | | | regurgitati | | | on. | | | Pulmonic | | | Valve: Mild | | | | | | degenerativ | | | e changes | | | in the | | | aortic and | | | mitral | | | valves. | | | Pericardium | | | : There is | | | no | | | pericardial | | | effusion. | | | Pericardium | | | : No | | | pleural | | | effusion | | | seen. | | | IVC/Hepatic | | | Veins: The | | | inferior | | | vena cava | | | is normal | | | in size and | | | collapses | | | > 50 % with | | | sniff, | | | indicating | | | normal | | | central | | | venous | | | pressures. | | | MEASUREMENT | | | S | | | | | | -- Ao asc: | | | 4.19 cm | | | Ao sinus: | | | 3.71 cm Ao | | | st junct: | | | 3.01 cm | | | IVC: 1.42 | | | cm LA | | | Diam: | | | 5.50 cm LA | | | Major: | | | 5.97 cm | | | EDV(Teich): | | | 106.74 | | | ml IVSd: | | | 1.19 cm | | | LVIDd: | | | 4.78 cm | | | LVPWd: | | | 1.21 cm | | | LVOT Diam: | | | 2.25 cm | | | %FS: | | | 26.84 % | | | EF(Teich): | | | 52.32 % | | | ESV(Teich): | | | 50.89 ml | | | IVSs: | | | 1.81 cm | | | LVIDs: | | | 3.50 cm | | | LVPWs: | | | 1.71 cm | | | SV(Teich): | | | 55.85 ml | | | RA Major: | | | 5.04 cm | | | LVEF MOD | | | A4C: | | | 55.16 % SV | | | MOD A4C: | | | 49.58 ml | | | LVEDV MOD | | | A4C: | | | 89.88 ml | | | LVLd A4C: | | | 7.50 cm | | | LVESV MOD | | | A4C: | | | 40.30 ml | | | LVLs A4C: | | | 5.87 cm | | | LAESV(A-L): | | | 76.74 ml | | | LAESV | | | Index | | | (A-L): | | | 41.48 ml/m2 | | | LAAs A2C: | | | 17.05 cm2 | | | LAESV A-L | | | A2C: | | | 48.56 ml | | | LALs A2C: | | | 5.08 cm | | | LAAs A4C: | | | 26.95 cm2 | | | LAESV A-L | | | A4C: | | | 95.07 ml | | | LALs A4C: | | | 6.48 cm Ao | | | Diam: | | | 4.03 cm AV | | | Cusp: | | | 1.91 cm LA | | | Diam: | | | 4.92 cm | | | LA/Ao: | | | 1.22 D-E | | | Excursion: | | | 2.29 cm | | | E-F Doddridge: | | | 0.09 m/s | | | AV maxPG: | | | 10.18 mmHg | | | AV meanPG: | | | 6.51 | | | mmHg AV | | | Vmax: | | | 1.59 m/s AV | | | Vmean: | | | 1.23 m/s AV | | | VTI: | | | 28.06 cm | | | FRANKY Vmax: | | | 3.26 cm2 | | | FRANKY (VTI): | | | 3.35 cm2 | | | AVAI Vmax: | | | 0.00 | | | cm2/m2 AVAI | | | (VTI): | | | 0.00 cm2/m2 | | | LVOT | | | maxPG: | | | 6.86 mmHg | | | LVOT | | | meanPG: | | | 3.16 mmHg | | | LVSI Dopp: | | | 50.95 | | | ml/m2 LVSV | | | Dopp: | | | 94.27 ml | | | LVOT Vmax: | | | 1.31 m/s | | | LVOT Vmean: | | | 0.84 m/s | | | LVOT VTI: | | | 23.69 cm | | | MV E Ed: | | | 0.93 m/s | | | E' Lat: | | | 0.12 m/s E' | | | Sept: | | | 0.06 m/s | | | PRend PG: | | | 8.85 mmHg | | | PRend Vmax: | | | 1.48 m/s | | | HR: | | | 77.27 BPM | | | PV maxPG: | | | 3.37 mmHg | | | PV meanPG: | | | 1.56 mmHg | | | PV Vmax: | | | 0.91 m/s | | | PV Vmean: | | | 0.56 m/s | | | PV VTI: | | | 12.48 cm RV | | | S': 0.08 | | | m/s TR | | | maxPG: | | | 37.05 mmHg | | | TR Vmax: | | | 3.04 m/s TV | | | A Ed: | | | 0.00 m/s TV | | | Dec Doddridge: | | | 3.93 | | | m/s2 TV Dec | | | Time: | | | 207.73 ms | | | TV E Ed: | | | 0.56 m/s | | | TV E/A | | | Ratio: | | | 69.55 | | | 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 | | | The left | | | ventricle | | | cavity is | | | normal in | | | size, mild | | | concentric | | | hypertrophy | | | and | | | normal | | | systolic | | | function EF | | | 55%. Mild | | | inferior | | | and | | | inferolater | | | al | | | hypokinetic | | | segments. | | | 2. Mild | | | degenerativ | | | e changes | | | in the | | | aortic and | | | mitral | | | valves. 3. | | | There is no | | | | | | pericardial | | | | | | effusion.Cl | | | Guidance | | | Vascular | | | Access | | | UsResult | | | Date: | | | 10/24/2017Thi | | | s Point of | | | Care (POC) | | | ultrasound | | | image has | | | been | | | reviewed | | | and | | | interpreted | | | by the | | | physician | | | identified | | | as the | | | performing | | | physician | | | in the | | | associated | | | interpretat | | | ion and | | | report. 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 | | | with | | | productive | | | cough, | | | shortness | | | of breath | | | and | | | hemoptysis | | | secondary | | | to | | | aspiration | | | pneumonia | | | and found | | | to have | | | positive | | | troponin | | | around 1 | | | hence he | | | was | | | transferred | | | to [facility] | | | Hospital | | | for further | | | workup and | | | treatment. | | | Hospital | | | course by | | | issues:#1 | | | non-ST | | | elevation | | | PA: Status | | | post | | | cardiac | | | cath which | | | showed | | | triple-vess | | | el disease | | | and | | | recommend | | | medical | | | management | | | only. | | | Patient | | | started on | | | Plavix, | | | atorvastati | | | n, patient | | | allergic to | | | beta | | | barbara has | | | not | | | initiated | | | and patient | | | currently | | | asymptomati | | | c. Patient | | | is being | | | discharged | | | home with | | | follow-up | | | with his | | | cardiologis | | | t#2 | | | aspiration | | | pneumonia | | | for which | | | patient was | | | started on | | | Unasyn and | | | doing | | | better and | | | being | | | discharged | | | home on | | | Augmentin | | | twice a day | | | for | | | another 5 | | | days#3 | | | dysphagia | | | likely | | | secondary | | | to history | | | of vocal | | | cord cancer | | | and speech | | | | | | recommended | | | mechanical | | | soft diet. | | | Patient | | | referred to | | | speech | | | therapy as | | | an | | | outpatient# | | | 4 | | | Hemoptysis | | | likely | | | secondary | | | to | | | underlying | | | pneumonia | | | and being | | | on aspirin | | | as well as | | | on | | | Xarelleto | | | which was | | | held on | | | admission | | | and Plavix | | | restarted | | | yesterday. | | | Patient | | | will be | | | restarted | | | on | | | Xarelleto | | | as he is | | | not | | | spitting up | | | any blood | | | and he was | | | advised to | | | hold any | | | blood | | | thinner if | | | he has | | | recurrence | | | of | | | hemoptysis | | | and seek | | | medical | | | attention#5 | | | .Iron | | | deficiency | | | anemia | | | secondary | | | to ongoing | | | hemoptysis | | | and patient | | | was given | | | IV iron now | | | being | | | discharged | | | home on | | | iron | | | supplement | | | hemoglobin | | | stable | | | around 9#6 | | | acute COPD | | | exacerbatio | | | n secondary | | | to | | | pneumonia | | | resolved | | | nowI have | | | spent more | | | than 35 | | | minutes on | | | dischargeBP | | | 139/67 (BP | | | Location: | | | Left upper | | | arm) | | | | Pulse 66 | | | | Temp 97.8 | | | F (36.6 | | | C) (Oral) | | | | Resp 18 | | | | Ht | | | 1.727 m (5' | | | 8") | Wt | | | 71.9 kg | | | (158 lb 8 | | | oz) | SpO2 | | | 98% | BMI | | | 24.10 | | | kg/m | | | Intake/Outp | | | ut Summary | | | (Last 24 | | | hours) at | | | 10/26/17 | | | 1221Last | | | data filed | | | at 10/26/17 | | | 0616 Gross | | | per 24 | | | hour Intake | | | | | | 1191.23 ml | | | Output | | | | | | 825 ml Net | | | | | | 366.23 ml | | | Discharge | | | Exam:Consti | | | tutional: | | | Alert and | | | oriented to | | | person, | | | place, and | | | time. | | | Appears | | | well-develo | | | ped and | | | well-nouris | | | hed. | | | Cardiovascu | | | lar: Normal | | | rate, | | | regular | | | rhythm, | | | normal | | | heart | | | sounds and | | | intact | | | distal | | | pulses. | | | Exam | | | reveals no | | | gallop and | | | no friction | | | rub. No | | | murmur | | | heard.Pulmo | | | nary/Chest: | | | Effort | | | normal and | | | breath | | | sounds | | | normal. No | | | stridor. No | | | | | | respiratory | | | distress. | | | no | | | wheezes. no | | | rales. | | | exhibits no | | | | | | tenderness. | | | Except | | | bibasilar | | | cracklesAbd | | | ominal: | | | Soft. Bowel | | | sounds are | | | normal. | | | exhibits no | | | distension | | | and no | | | mass. There | | | is no | | | tenderness. | | | There is | | | no rebound | | | and no | | | guarding. | | | Musculoskel | | | etal: | | | Normal | | | range of | | | motion.exhi | | | bits no | | | tenderness. | | | exhibits | | | no edema. | | | | | | Neurologica | | | l: Alert | | | and | | | oriented to | | | person, | | | place, and | | | time. Has | | | normal | | | reflexes. | | | displays | | | normal | | | reflexes. | | | No cranial | | | nerve | | | deficit. | | | Exhibits | | | normal | | | muscle | | | tone. | | | Coordinatio | | | n | | | normal.Skin | | | : Skin is | | | warm and | | | dry. No | | | rash noted. | | | No | | | erythema. | | | No pallor. | | | Psychiatric | | | : Has a | | | normal mood | | | and | | | affect. | | | Behavior is | | | normal. | | | Judgment | | | normal. | | | Disposition | | | : Home or | | | Self | | | CarePatient | | | | | | Instruction | | | s: | | | Medication | | | List START | | | taking | | | these | | | medications | | | | | | amoxicillin | | | -clavulanat | | | e [phone] | | | MG per | | | tabletQTY: | | | 10 | | | tabletRefil | | | ls: | | | 0Commonly | | | known as: | | | AUGMENTINTa | | | ke 1 tablet | | | by mouth | | | every 12 | | | (twelve) | | | hours. | | | atorvastati | | | n 40 MG | | | tabletQTY: | | | 30 | | | tabletRefil | | | ls: | | | 2Commonly | | | known as: | | | LIPITORTake | | | 1 tablet | | | by mouth | | | nightly. | | | budesonide- | | | formoterol | | | 160-4.5 | | | MCG/ACT | | | inhalerQTY: | | | 1 | | | InhalerRefi | | | lls: | | | 0Commonly | | | known as: | | | SYMBICORTIn | | | steinberg 2 | | | puffs into | | | the lungs 2 | | | (two) | | | times | | | daily. | | | clopidogrel | | | 75 MG | | | tabletQTY: | | | 90 | | | tabletRefil | | | ls: | | | 0Commonly | | | known as: | | | PLAVIXTake | | | 1 tablet by | | | mouth | | | daily. | | | ipratropium | | | -albuterol | | | 0.5-2.5 | | | mg/3mLQTY: | | | 360 | | | mLRefills: | | | 0Commonly | | | known as: | | | DUO-NEBTake | | | 3 mLs by | | | nebulizatio | | | n every 6 | | | (six) hours | | | as needed. | | | CHANGE | | | how you | | | take these | | | medications | | | mupirocin | | | 2 % | | | ointmentQTY | | | : 22 | | | gRefills: | | | 2Commonly | | | known as: | | | BACTROBANAp | | | ply | | | topically 3 | | | (three) | | | times | | | daily.What | | | changed: | | | when to | | | take this | | | reasons to | | | take this | | | predniSONE | | | 2.5 MG | | | tabletQTY: | | | 30 | | | tabletRefil | | | ls: | | | 0Commonly | | | known as: | | | DELTASONETa | | | ke 4 | | | tablets by | | | mouth | | | daily. | | | Takes 7.5 | | | mg | | | dailyWhat | | | changed: | | | additional | | | instruction | | | s CONTINUE | | | taking | | | these | | | medications | | | acyclovir | | | 400 MG | | | tabletRefil | | | ls: | | | 0Commonly | | | known as: | | | ZOVIRAX | | | Albuterol | | | Sulfate 108 | | | (90 Base) | | | MCG/ACT | | | AepbRefills | | | : 0 | | | alendronate | | | 70 MG | | | tabletRefil | | | ls: | | | 0Commonly | | | known as: | | | FOSAMAX | | | azaTHIOprin | | | e 50 MG | | | tabletRefil | | | ls: | | | 0Commonly | | | known as: | | | IMURAN | | | azelastine | | | 0.1 % nasal | | | sprayQTY: | | | 30 | | | mLRefills: | | | 121 spray | | | by Nasal | | | route 2 | | | (two) times | | | daily. Use | | | in each | | | nostril as | | | directed | | | bacitracin- | | | polymyxin b | | | ophthalmic | | | | | | ointmentRef | | | ills: | | | 0Commonly | | | known as: | | | POLYSPORIN | | | bismuth | | | subsalicyla | | | te 262 MG | | | chewable | | | tabletRefil | | | ls: | | | 0Commonly | | | known as: | | | PEPTO | | | BISMOL | | | CALCIUM-MAG | | | NESIUM-ZINC | | | PORefills: | | | 0 | | | cholecalcif | | | lisa 1000 | | | units | | | tabletRefil | | | ls: | | | 0Commonly | | | known as: | | | VITAMIN D-3 | | | | | | cyanocobala | | | min 1000 | | | MCG | | | tabletRefil | | | ls: | | | 0Commonly | | | known as: | | | VITAMIN | | | B-12 | | | famotidine | | | 40 MG | | | tabletRefil | | | ls: | | | 0Commonly | | | known as: | | | PEPCID | | | ferrous | | | sulfate (65 | | | FE) 325 | | | (65 FE) MG | | | tabletRefil | | | ls: 0 | | | FLOMAX 0.4 | | | MG | | | capsuleRefi | | | lls: | | | 0Generic | | | drug: | | | tamsulosin | | | fluticasone | | | 50 MCG/ACT | | | | | | nasalRefill | | | s: | | | 0Commonly | | | known as: | | | FLONASE | | | fluticasone | | | -salmeterol | | | 500-50 | | | MCG/DOSE | | | diskus | | | inhalerRefi | | | lls: | | | 0Commonly | | | known as: | | | ADVAIR | | | folic acid | | | 1 MG | | | tabletRefil | | | ls: | | | 0Commonly | | | known as: | | | FOLVITE | | | furosemide | | | 40 MG | | | tabletRefil | | | ls: | | | 0Commonly | | | known as: | | | LASIX | | | guaiFENesin | | | 600 MG 12 | | | hr | | | tabletRefil | | | ls: | | | 0Commonly | | | known as: | | | MUCINEX | | | HYDROcodone | | | -acetaminop | | | hen 7.5-325 | | | MG per | | | tabletRefil | | | ls: | | | 0Commonly | | | known as: | | | NORCO Krill | | | Oil 500 MG | | | | | | CapsRefills | | | : 0 | | | LANOXIN | | | 0.25 MG | | | tabletRefil | | | ls: | | | 0Generic | | | drug: | | | digoxin | | | levothyroxi | | | ne 75 MCG | | | tabletRefil | | | ls: | | | 0Commonly | | | known as: | | | SYNTHROID | | | loratadine | | | 10 MG | | | tabletRefil | | | ls: | | | 0Commonly | | | known as: | | | CLARITIN | | | losartan 50 | | | MG | | | tabletRefil | | | ls: | | | 0Commonly | | | known as: | | | COZAAR | | | mupirocin 2 | | | % nasal | | | ointmentRef | | | ills: | | | 0Commonly | | | known as: | | | BACTROBAN | | | ofloxacin | | | 0.3 % | | | ophthalmic | | | solutionRef | | | ills: | | | 0Commonly | | | known as: | | | OCUFLOX | | | oxyCODONE-a | | | cetaminophe | | | n 5-325 MG | | | per | | | tabletRefil | | | ls: | | | 0Commonly | | | known as: | | | PERCOCET | | | potassium | | | chloride 10 | | | MEQ | | | tabletRefil | | | ls: | | | 0Commonly | | | known as: | | | K-DUR | | | sertraline | | | 100 MG | | | tabletRefil | | | ls: | | | 0Commonly | | | known as: | | | ZOLOFT | | | trolamine | | | salicylate | | | 10 % | | | creamRefill | | | s: | | | 0Commonly | | | known as: | | | ASPERCREME | | | VOLTAREN 1 | | | %Refills: | | | 0Generic | | | drug: | | | diclofenac | | | XARELTO 20 | | | MG | | | tabletRefil | | | ls: | | | 0Generic | | | drug: | | | rivaroxaban | | | You might | | | also be | | | taking | | | other | | | medications | | | not listed | | | above. If | | | you have | | | questions | | | about any | | | of your | | | other | | | medications | | | , talk to | | | the person | | | who | | | prescribed | | | them or | | | your | | | Primary | | | Care | | | Provider. | | | STOP | | | taking | | | these | | | medications | | | diltiazem | | | 120 MG | | | tabletCommo | | | nly known | | | as: | | | CARDIZEM | | | nystatin | | | creamCommon | | | ly known | | | as: | | | MYCOSTATIN | | | nystatin-tr | | | iamcinolone | | | | | | ointmentCom | | | monly known | | | as: | | | MYCOLOG | | | omeprazole | | | 20 MG | | | capsuleComm | | | only known | | | as: | | | PRILOSEC | | | pseudoephed | | | rine 30 MG | | | tabletCommo | | | nly known | | | as: | | | SUDAFED | | | Where to | | | Get Your | | | Medications | | | You can | | | get these | | | medications | | | from any | | | pharmacy | | | Bring a | | | paper | | | prescriptio | | | n for each | | | of these | | | medications | | | | | | amoxicillin | | | -clavulanat | | | e 875-125 | | | MG per | | | tablet | | | atorvastati | | | n 40 MG | | | tablet | | | budesonide- | | | formoterol | | | 160-4.5 | | | MCG/ACT | | | inhaler | | | clopidogrel | | | 75 MG | | | tablet | | | ipratropium | | | -albuterol | | | 0.5-2.5 | | | mg/3mL | | | Information | | | about | | | where to | | | get these | | | medications | | | is not yet | | | available | | | Ask your | | | nurse or | | | doctor | | | about these | | | | | | medications | | | | | | predniSONE | | | 2.5 MG | | | tablet | | | Activity: | | | activity as | | | | | | toleratedDi | | | et: cardiac | | | dietWound | | | Care: not | | | applicableT | | | here are no | | | outpatient | | | Patient | | | Instruction | | | s on file | | | for this | | | admission. | | | Nelson | | | [place], | | | [id number] | | [address], [place] | | | [address] | | | n [place] | | | [phone] | | | [phone] | | | lm | | | [place], | | | [id number] | | | [address], [address] | | | [address] | | | n [place] | | | [phone] | | | [phone] | | | weekMershed | | | [place], | | | [id number] | | | [address] | | | [place] | | | [place] | | | [place] | | | [phone] | | | [phone] | | | weekSigned: | | | JUNIE | | | JOSHI | | | [phone] PM | +---+ + +--------+ +---+ + + | 10/23/ | Hospital | | See, Medical | Pain | | 2017 | Encounter | | Record | | +--------+ +---+ + + | 10/23/ | Hospital | | See, Medical | Pain | | 2017 | Encounter | | Record | | +--------+ +---+ + + | 10/23/ | Ancillary | | See, Medical | Pain | | 2018 | Orders | | Record | | +--------+ +---+ + + | 10/23/ | Ancillary | | See, Medical | Pain | | 2018 | Orders | | Record | | +--------+ +---+ + + | 10/16/ | Hospital | | See, Medical | Pain | | 2018 | Encounter | | Record | | +--------+ +---+ + + | 10/16/ | Ancillary | | See, Medical | Pain | | 2018 | Orders | | Record | | +--------+ +---+ + + | 10/15/ | Documentati | | [facility] | Other (Stress test | | 2018 | on Only | | BRY Umaña | 10/14/17) | +--------+ +---+ + + | 10/08/ | Documentati | | [place], | Labs Only | | 2018 | on Only | | ELINOR Doran | | +--------+ +---+ + + | 10/07/ | Initial | | Cecilia Mccoy, | Encounter for annual | | 2018 | consult | | MD | health examination | | | | | | (Primary Dx); | | | | | | Atherosclerosis of | | | | | | coronary artery, | | | | | | angina presence | | | | | | unspecified, | | | | | | unspecified vessel | | | | | | or lesion type, | | | | | | unspecified whether | | | | | | tuolumne or | | | | | | [...] | | | rupture (HCC) | +--------+ +---+ + + from Last 3 Months Family [...] + +------+--------+ + Social History + +-------+ +--------+------+ | [...] + + + + Plan of Treatment +--------+ + + + + | Date | Type | Specialty | Care Team | Description | +--------+ + + + + | 11/28/ | Office | | Elia, | | | 2017 | Visit | | Marycarla Pinto, | | | | | | [address] | | | | | | [place] [address] | | | | | | [phone] | | | | | | | | +--------+ + + + + | 12/04/ | Office | | Cecilia Mccoy, | | | 2017 | Visit | | [address] | | | | | | [address], | | | | | | [place] [address] | | | | | | [phone] | | | | | | | | +--------+ + + + + | 01/08/ | Office | | Cecilia Mccoy, | | | 2017 | Visit | | MD [address] | | | | | | [address], | | | | | | [place] [address] | | | | | | [phone] | | | | | | | | +--------+ + + + + | 01/30/ | Appointment | | | | | 2017 | | | | | +--------+ + + + + | 01/30/ | Appointment | | | | | 2017 | | | | | +--------+ + + + + | 01/30/ | Office | | Bridget Milian DNP | | | 2017 | Visit | | [address] | | | | | | [place] | | | | | | [address] | | | | | | | | +--------+ + + + + + + + [...] XR CHEST 2 VIEW | Routin | 10/23/2017 | Pain | Results for this | | FRONTAL AND LATERAL | e | 5:05 PM | | [...] EKG STANDARD 12 LEAD | Routin | 10/07/2017 [...] whether | | | | | | tuolumne or | | | | | | transplanted heart | | + +--------+ + + + from Last 3 Months Results XR chest 2 view (10/26/2017 9:52 AM)Only the most recent of 3 results within the time yolette od is included. + + + | Impressions | Performed [...] | + + + | GERMAN ROSE 1945 72 years Male XR CHEST [...] Rad Results In - 10/26/2017 10:07 AM TIMOTHY ROSE89 years MaleXR | | CHEST 2 [...] [facility] | [address] | [place] [address] | | + + + + + CBC W/Auto Diff (Reflex to Manual) (10/26/2017 5:35 AM)Only the most recent of 3 results w mercyin the time period is included. + + + + + | Component [...] | | | | | performed at [facility], [facility] [address] | | | | | [facility], | | | | | [place] [address] | | | | |MICRO | | | | |NORMAL PLT MORPH | | | | |Testing performed at [facility], [facility] [place] [address] | | | | | | | | + + + + + + + | Specimen | + + | Blood | + + + + + + + | Performing | Address | City/State/Zipcode | Phone Number | | Organization | | | | + + + + + | [facility] | [address] | [place] [address] | [phone] | | LABORATORY | [address] | | | + + + + + Comprehensive metabolic panel (10/26/2017 5:35 AM)Only the most recent of 2 results within the time period is included. + + + + + | Component [...] 8.5 | 8.5 - 10.5 mg/dL | [facility] | | | | | LABORATORY | + + + + + | TOTAL PROTEIN | 5.5 (L) | 6.3 - 8.2 g/dL | [facility] | | | | | LABORATORY | [...] the | | | | | [facility] traceable | | | | | equation.Testing | | | | | performed at [facility], [address] | | | | | [facility], | | | | | [place] [address] | | | + + + + + + + | Specimen | + + | Blood | + + + + + + + | Performing | Address | City/State/Zipcode | Phone Number | | Organization | | | | + + + + + | [facility] | [address] | [place] [address] | [phone] | | LABORATORY | Blvd[address] | | | + + + + + Iron panel (10/25/2017 2:43 PM) + + + [...] | [facility] | | | performed at [facility], [address] | | LABORATORY | | | [address], | | | | | [place] [address] | | | + + + + + + + | Specimen | + + | Blood | + + + + + + + | Performing | Address | City/State/Zipcode | Phone Number | | Organization | | | | + + + + + | [facility] | [address] [place] [address] | [place] [address] | [phone] | | LABORATORY | [place] | | | + + + + + Folate (10/25/2017 2:43 PM) + + + + + | Component | Value | Ref Range | Performed At | + + + + + | FOLATE | 18.6Comment: Testing | >5.4 ng/mL | [facility] | | | performed at [facility], [address] | | LABORATORY | | | [address], | | | | | [place] [address] | | | + + + + + + + | Specimen | + + | Blood | + + + + + + + | Performing | Address | City/State/Zipcode | Phone Number | | Organization | | | | + + + + + | [facility] | [address] | [place] [address] | [phone] | | LABORATORY | [address]vd[address] | | | + + + + + Ferritin (10/25/2017 2:43 PM) + + + + + | Component | Value | Ref Range | Performed At | + + + + + | FERRITIN | 156Comment: Testing | 11 - 450 ng/mL | [facility] | | | performed at [facility], [address] | | LABORATORY | | | [facility], | | | | | [place] [address] | | | + + + + + + + | Specimen | + + | Blood | + + + + + + + | Performing | Address | City/State/Zipcode | Phone Number | | Organization | | | | + + + + + | [facility] | [address] | [place] [address] | [phone] | | LABORATORY | Blvd[address] | | | + + + + + Vitamin B12 (10/25/2017 2:43 PM) + + + + + | Component | Value | Ref Range | Performed At | + + + + + | VITAMIN B12 | 292Comment: Testing | 254 - 1,320 pg/mL | [facility] | | | performed at [facility], [address] | | LABORATORY | | | [facility], | | | | | [place] [address] | | | + + + + + + + | Specimen | + + | Blood | + + + + + + + | Performing | Address | City/State/Zipcode | Phone Number | | Organization | | | | + + + + + | [facility] | [address] | [place] [address] | [phone] | | LABORATORY | Blvd[address] | | | + + + + + CL guidance vascular access (10/24/2017 8:12 PM) + + + | [...] | + + + + + | [facility] | [address] | [place] [address] | | + + + + + CL coronary angio with grafts (10/24/2017 8:09 PM) + + + | Narrative | Performed At | + + + | | [facility] | | | RADIOLOGY | | DATE [...] needle, right femoral access was obtained. A 5-Marshallese | | | sheath was introduced without any difficulty. A 0.035 wire was | | | used and advanced under fluoroscopic guidance into the ascending | | | aorta. A 5-Marshallese JL4 catheter was used and advanced over [...] over the wire was done with a 5-Marshallese | | | multipurpose catheter that selectively engaged the right SVG to RCA | | | graft. Multiple views were obtained. Exchange over the wire was | | | done with 5-Marshallese AL1 catheter that selectively engaged the SVG [...] needle, right femoral access was obtained. A 5-Marshallese sheath | | was introduced without any difficulty. A 0.035 wire was used and advanced | | under fluoroscopic guidance into the ascending aorta. A 5-Marshallese JL4 | | catheter was used and [...] over the wire was done with a 5-Marshallese | | multipurpose catheter that selectively engaged the right SVG to RCA graft. | | Multiple views were obtained. Exchange over the wire was done with | | 5-Marshallese AL1 catheter that selectively engaged the SVG [...] + + | Performing | Address | City/State/[facility] | Phone Number | | Organization | | | | + + + + + | [facility] | [address] | [place] [address] | | + + + + + X-ray swallowing function video (10/24/2017 4:50 PM) + + + | Narrative | Performed At | + + + | This is a non-reportable procedure without a radiologist report and | [facility] | | is used for image storage only | RADIOLOGY | + + + + + + + + | Performing | Address | City/State/Zipcode | Phone Number | | Organization | | | | + + + + + | [facility] | [address] | [place] [address] | | + + + + + CT chest without contrast (10/24/2017 11:22 AM) + + + | Impressions | Performed At | + + + | 1. At the very least there is pulmonary vascular congestion, | [facility] | | edema-and centrilobular emphysema is superimposed [...] Earlier chest | | | radiograph. FINDINGS: Master Automotive Glass Technician demonstrates cardiomegaly, sternal | | | wires [...] | Diogo Harris Results In - 10/24/2017 12:06 PM PDT HISTORY: 72 years year-old Male, | | hemoptysis.TECHNIQUE: CT through the chest. Noncontrast examination. Automatic dose | | adjustment to minimize patient exposure.PRIOR EXAMINATION: Earlier chest | | radiograph.FINDINGS:Master Automotive Glass Technician demonstrates cardiomegaly, sternal wires and dense reticular [...] | + + + + + | [facility] | [address] | [place] [address] | | + + + + + Echo cardiac adult complete (10/24/2017 7:00 AM) + +-------+ + + | Component | Value | Ref Range | Performed At | + +-------+ + + | LV EF | 55 | 50 - 70 % | [facility] | | | | | RADIOLOGY | [...] | + + + | Patient Name: GERMAN ROSE Date of : 1945 | [facility] | | Performing Physician: Cecilia Mccoy | [...] LA/Ao: 1.22 D-E Excursion: 2.29 cm E-F Doddridge: 0.09 | | | m/s AV maxP.18 [...] 0.00 | | | m/s TV Dec Doddridge: 3.93 m/s2 TV Dec Time: 207.73 ms TV E | | | Ed: 0.56 m/s TV E/A Ratio: 69.55 Sales Office Assistant: CM | | | Authenticated by: Cecilia Nadine Report Date/Time: 10-24-2017 13:7:33 | | | | | + + + + + | Procedure Note | + + | Steven, Rad Results In - 10/24/2017 1:10 PM PDT Patient Name: Raegan ROSE of : | | 4Accession: [id number] Physician: Cecilia | | Hectoramara INDICATIONS------ | | -----sob,h/o 4 cabgCONCLUSIONS 1. [...] mlLAESV Index (A-L): 41.48 ml/m2LAAs A2C: 17.05 [id number] A-L A2C: 48.56 | | mlLALs A2C: 5.08 cmLAAs A4C: 26.95 [id number] A-L A4C: 95.07 mlLALs A4C: 6.48 cmAo | | Diam: 4.03 cmAV Cusp: 1.91 cmLA Diam: 4.92 cmLA/Ao: 1.22 D-E Excursion: 2.29 | | cmE-F Doddridge: 0.09 m/Leigha maxP.18 mmHgAV meanP.51 mmHgAV Vmax: 1.59 m/Leigha | | Vmean: 1.23 m/Leigha VTI: 28.06 cmAVA Vmax: 3.26 cm2AVA (VTI): 3.35 [id number] Vmax: | | 0.00 cm2/m2AVAI (VTI): 0.00 [...] 3.04 m/sTV A Ed: 0.00 m/sTV Dec Doddridge: 3.93 m/s2TV | | Dec Time: 207.73 msTV E Ed: 0.56 m/sTV E/A Ratio: 69.55 Sales Office Assistant: | | CMAuthenticated by: Cecilia [facility] CenterReport Date/Time: 10-24-2017 13:7:33IMPRESSION:1. The | [...] | |D-E Excursion: 2.29 cm | |E-F Doddridge: 0.09 m/s | |AV maxP.18 mmHg | [...] A Ed: 0.00 m/s | |TV Dec Doddridge: 3.93 m/s2 | |TV Dec Time: 207.73 ms | |TV E Ed: 0.56 m/s | |TV E/A Ratio: 69.55 | | | |Sales Office Assistant: CM | |Authenticated by: Cecilia Mccoy | [...] | + + + + + | [facility] | [address] | [place] [address] | | + + + + + EKG STANDARD 12 LEAD (10/24/2017 6:28 AM)Only the most recent of 2 results within the time period is included. + + + + + | Component [...] QTC Calculation | 451 | ms | [facility] | | (Bezet) | | | | + + + + + | Calculated R [place] | -81 | degrees | [facility] | + + + + + | Calculated T [place] | 5 | degrees | [facility] | + + + + + | Diagnosis | Atrial fibrillationRight | | [facility] | | | bundle branch blockLeft [...] | + + + + + | [facility] | [address] | [place] [address] | | + + + + + Troponin I (10/24/2017 5:51 AM)Only the most recent of 3 results within the time period is included. + + + + + | Component | Value | Ref Range | Performed At | + + + + + | TROPONIN I | 1.28 ()Comment: 0.00 | 0.00 - 0.10 ng/mL | [facility] | | | to 0.10 CONSISTENT [...] | | | | CRITERIA FOR ACUTE PA | | | | | CALLED NURSING UNITREAD | | | | | BACK RESULTS | | | | | VERIFIEDJEJEREMIAH W IN 8RP | | | | | AT 0658 BY TDTesting | | | | | performed at [facility];[address] | | | | | [facility];[place], [place] | | | | | [address] | | | + + + + + + + | Specimen | + + | Blood | + + + + + + + | Performing | Address | City/State/Zipcode | Phone Number | | Organization | | | | + + + + + | [facility] | [address] | [place] [address] | | + + + + + [...] + + + + | [facility] | [address] | [place] [address] | [phone] | | LABORATORY | [address] | | | + + + + + Protime-INR (10/24/2017 1:57 AM) + + + + + | Component | Value | Ref Range | Performed At | + + + + + | INR | 1.2Comment: REFERENCE | | [facility] | | | RANGE:0.9 - | [...] | | | | | performed at [facility] | | | | | [facility];[place], [place] | | | | | [address] | | | + + + + + + + | Specimen | + + | Blood | + + + + + + + | Performing | Address | City/State/Zipcode | Phone Number | | Organization | | | | + + + + + | [facility] | [address] | [place] [address] | | + + + + + TSH (10/24/2017 1:57 AM) + + + + + | Component | Value | Ref Range | Performed At | + + + + + | TSH | 4.150Comment: Testing | 0.450 - 5.100 uIU/mL | [facility] | | | performed at [facility], [address] | | LABORATORY | | | [address], | | | | | [place] [address] | | | + + + + + + + | Specimen | + + | Blood | + + + + + + + | Performing | Address | City/State/Zipcode | Phone Number | | Organization | | | | + + + + + | [facility] | [address] | [place] [address] | [phone] | | LABORATORY | [place]. | | | + + + + + Phosphorus (10/24/2017 1:57 AM) + + + + + | Component | Value | Ref Range | Performed At | + + + + + | PHOSPHORUS | 3.4Comment: Testing | 2.3 - 4.8 mg/dL | [facility] | | | performed at [facility], [address] | | LABORATORY | | | [address], | | | | | [place] [address] | | | + + + + + + + | Specimen | + + | Blood | + + + + + + + | Performing | Address | City/State/Zipcode | Phone Number | | Organization | | | | + + + + + | [facility] | [address] | [place] [address] | [phone] | | LABORATORY | [address]vd[address] | | | + + + + + Magnesium (10/24/2017 1:57 AM) + + + + + | Component | Value | Ref Range | Performed At | + + + + + | MAGNESIUM | 1.8Comment: Testing | 1.7 - 2.4 mg/dL | [facility] | | | performed at [facility], [address] | | LABORATORY | | | [facility], | | | | | [place] [address] | | | + + + + + + + | Specimen | + + | Blood | + + + + + + + | Performing | Address | City/State/Zipcode | Phone Number | | Organization | | | | + + + + + | [facility] | [address] | [place] [address] | [phone] | | LABORATORY | [address] | | [...] | [facility] | | | performed at [facility], [address] | | LABORATORY | | | [facility], | | | | | [place] [address] | | | + + + + + + + | Specimen | + + | Blood | + + + + + + + | Performing | Address | City/State/Zipcode | Phone Number | | Organization | | | | + + + + + | [facility] | [address] | [place] [address] | [phone] | | LABORATORY | [address] | | [...] 1.3 | 0.70 - 1.30 mg/dL | [facility] | | | | | LABORATORY | + + + + + | BUN/CREAT | 11 | | [facility] | | | | | LABORATORY | + + + + + | CALCIUM | 8.6 | 8.5 - 10.5 mg/dL | [facility] | | | | | LABORATORY | + + + + + | EGFR | 54 (L)Comment: GFR <60: | >60 mL/min/1.73m2 | [facility] | | | CHRONIC KIDNEY DISEASE, | [...] | | | | | performed at [facility], [address] | | | | | [facility], | | | | | [place] [address] | | | + + + + + + + | Specimen | + + | Blood | + + + + + + + | Performing | Address | City/State/Zipcode | Phone Number | | Organization | | | | + + + + + | [facility] | [address] | [place] [address] | [phone] | | LABORATORY | [place]. | | | + + + + + Septic Lactic Acid (10/23/2017 11:50 PM) + + + + + | Component | Value | Ref Range | Performed At | + + + + + | LACTIC ACID | 1.1Comment: Testing | 0.4 - 2.0 mmol/L | [facility] | | | performed at [facility];[address] | | | | | [address];[place] | | | | | [address] | | | + + + + + + + + + + | Performing | Address | City/State/Zipcode | Phone Number | | Organization | | | | + + + + + | [facility] | [address] | [place] [address] | | + + + + + CT head without contrast (10/23/2017 5:05 PM) [...] + + | [facility] | [address] | [place] [address] | | + + + + + NM myocardial perfus SPECT (stress only) (10/14/2017 1:12 AM) + + + | Narrative | Performed At | + + + | This is a non-reportable procedure without a radiologist report and | [facility] | | is used for image storage only | RADIOLOGY | + + + + + + + + | Performing | Address | City/State/Zipcode | Phone Number | | Organization | | | | + + + + + | [facility] | [address] | [place] [address] | | + + + + + from Last 3 Months Insurance + +--------+ +------+-------+ + | Payer | Benefi | Subscriber | Type | Phone | Address | | | t Plan | ID | | | | | | / | | | | | | | Group | | | | | + +--------+ +------+-------+ + | MEDICARE | MEDICA | [id number] | | | [address] | | | RE | | | | [place] [address] | | | IP-OP | | | | | + +--------+ +------+-------+ + | [facility] | [place] | [id number] | | | | | | | [...] | Person | Self | [birth year] Work: | [address] | | | marci/Arvind | | 1945 | [phone] | [place] | | | irish | | | [address]: | [address] | | | | | | | | | | | | | [phone] | | | | | | | [address]65 | | + +--------+ +--------+ + +
--- OUTSIDE RECORDS SUMMARY | ~2017-11-13 | XMS | Encounter Summary ---
Demographics + + + | Address | [address] | | | [place] [address] | + + + | Home Phone | | + + + | Preferred Language | Unknown | + + + | Marital Status | | + + + | Voodoo Affiliation | 1028 | + + + | Race | Unknown | + + + | Ethnic Group | Unknown | + + + Author + + + | Author | [facility] | + + + | Organization | [facility] | + + + | Address | Unknown | + + + | Phone | Unavailable | + + + Support + + + + + | Name | Relationship | Address | Phone | + + + + + | Blossom Rose | ECON | [address] | | | | | [place] | | | | | [address] | | + + + + + | Message,Detailed | ECON | Unknown | | + + + + + Care Team Providers + +------+ + | Care Sourcing Manager Name | Role | Phone | [...] [address] | | | | | | [address] [facility] | | | | | | [place] [address] | | | | | | [phone] | | | +--------+ + + + [...] by | | | | | | [id number] | mouth daily. | | | | [...] by | 360 mL | 0 | 08//20 | | | ipratropium-albutero | nebulization every [...] Dr | | | | | | [place] [address] | | | | | | [phone] | | | | | | | | +--------+ + + + + | 12/04/ | Office | Cardiology | Cristian Mccoy, | | | 2017 | Visit | | MD [address] | | | | | | [address] [place], | | | | | | [place] [address] | | | | | | [phone] | | | | | | | | +--------+ + + + + | 01/08/ | Office | Cardiology | Cristian Mccoy, | | | 2017 | Visit | | MD [address] | | | | | | [address] [place], | | | | | | [place] [address] | | | | | | [phone] | | | | | | | [...] [place] | | | | | | [address] | | | | | | | [...] + + + in this encounter Results X-ray chest 2 view [...] | + + + + + | [facility] | [address] | [place] [address] | | + + + + + in this encounter Visit Diagnoses + + | Diagnosis | + + | Pain | + + | Generalized pain | + +"
--- OUTSIDE RECORDS SUMMARY | ~2017-11-13 | XMS | Encounter Summary ---
Demographics + + + | Address | [address] | | | [place] [address] | + + + | Home Phone | | + + + | Preferred Language | Unknown | + + + | Marital Status | | + + + | Scientologist Affiliation | 1028 | + + + | Race | Unknown | + + + | Ethnic Group | Unknown | + + + Author + + + | Author | [facility] | + + + | Organization | [facility] | + + + | Address | Unknown | + + + | Phone | Unavailable | + + + Support + + + + + | Name | Relationship | Address | Phone | + + + + + | Blossom Rose | ECON | [address] | | | | | [place] | | | | | [address] | | + + + + + | Message,Detailed | ECON | Unknown | | + + + + + Care Team Providers + +------+ + | Care Cartographic Aide Name | Role | Phone | [...] + + | 10/23/ | Hospital | [facility] | See, Medical | Pain | | 2018 | Encounter | [facility] | Record | | | | | RADIOLOGY [address] | | | | [address] | | | | | | [place] [address] | | | | | | [phone] | | | +--------+ + + + [...] by | | | | | | [id number] | mouth daily. | | | | [...] Dr | | | | | | [place] [address] | | | | | | [phone] | | | | | | | | +--------+ + + + + | 12/04/ | Office | Cardiology | Cristian Mccoy, | | | 2017 | Visit | | MD [address] | | | | | | Dr [address], | | | | | | [place] [address] | | | | | | [phone] | | | | | | | | +--------+ + + + + | 01/08/ | Office | Cardiology | Cristian Mccoy, | | | 2017 | Visit | | MD [address] | | | | | | [address], | | | | | | [place] [address] | | | | | | [phone] | | | | | | | [...] [place] | | | | | | [address] | | | | | | | [...] RADIOLOGY | [address] | [place] [address] | | + + + + + in this encounter Visit Diagnoses + + | Diagnosis | + + | Pain | + + | Generalized pain | + +"
--- OUTSIDE RECORDS SUMMARY | ~2017-11-13 | XMS | Encounter Summary ---
Demographics + + + | Address | [address] | | | [place] [address] | + + + | Home Phone | | + + + | Preferred Language | Unknown | + + + | Marital Status | | + + + | Restorationist Affiliation | 1028 | + + + | Race | Unknown | + + + | Ethnic Group | Unknown | + + + Author + + + | Author | [facility] | + + + | Organization | [facility] | + + + | Address | Unknown | + + + | Phone | Unavailable | + + + Support + + + + + | Name | Relationship | Address | Phone | + + + + + | Blossom Rose | ECON | [address] | | | | | [place] | | | | | [address] | | + + + + + | Message,Detailed | ECON | Unknown | | + + + + + Care Team Providers + +------+ + | Care Roll Over Loader Name | Role | Phone | + +------+ + | Nelson Laird MD | PCP | | + +------+ + Encounter Details +--------+ + + + + | Date | Type | Department | Care Team | Description | +--------+ + + + + | 10/24/ | Procedure | [facility] | | | | 2018 | [facility] | [facility] [address] | | | | | | Floor [address] | | | | | | [address] | | | | | | [place] [address] | | | | | | [phone] | | | +--------+ + + + [...] | | | | | [place] [address] | | | | | | [phone] | | | | | | | | +--------+ + + + + | 12/04/ | Office | Cardiology | Cristian Mccoy, | | | 2017 | Visit | | MD [address] | | | | | | [address] [place], | | | | | | [place] [address] | | | | | | [phone] | | | | | | | | +--------+ + + + + | 01/08/ | Office | Cardiology | Cristian Mccoy, | | | 2017 | Visit | | MD [address] | | | | | | [address] [place], | | | | | | [place] [address] | | | | | | [phone] | | | | | | | [...]
--- OUTSIDE RECORDS SUMMARY | ~2017-11-13 | XMS | Clinical Summary ---
Demographics + + + | Address | [address] | | | [place] [address] | + + + | Home Phone | | + + + | Preferred Language | Unknown | + + + | Marital Status | | + + + | Buddhist Affiliation | 1028 | + + + | Race | Unknown | + + + | Ethnic Group | Unknown | + + + Author + + + | Author | [facility] | + + + | Organization | [facility] | + + + | Address | Unknown | + + + | Phone | Unavailable | + + + Support + + + + + | Name | Relationship | Address | Phone | + + + + + | Blossom Rose | ECON | [address] | | | | | [place] | | | | | [address] | | + + + + + | Message,Detailed | ECON | Unknown | | + + + + + Care Team Providers + +------+ + | Care Pyrometallurgical Engineer Name | Role | Phone | [...] (See Comments) | Medium | 09/14/19 | FRAME CHANGER | | | | | 15 | [...] | | | | Activ | | [id number] | mouth daily. | | | | [...] | | ID:German Sidhu | | | [id number] | | | [id number] | | | [...] | | | FINDINGS: | | | Presidential Helicopter Crew Chief | | | demonstrate | | | [...] | | | cession: | | | [id number] | | | | | | | [...] | | obtained. | | | A 5-Mauritanian | | | sheath was | | [...] | | aorta. A | | | 5-Mauritanian | | | JL4 | | | [...] | done with a | | | 5-Mauritanian | | | multipurpos | | | [...] | | done with | | | 5-Mauritanian | | | AL1 | | | [...] | | | Accession: | | | [id number] | | | Performing | | | [...] | 2.29 cm | | | E-F Cayey: | | | 0.09 m/s | | [...] 0.00 m/s TV | | | Dec Cayey: | | | 3.93 | | | m/s2 TV Dec | | | Time: | | | 207.73 ms | | | TV E Ed: | | | 0.56 m/s | | | TV E/A | | | Ratio: | | | 69.55 | | | Marketing Research Analyst | | | : CM | | [...] | | transferred | | | to [facility] | | | Hospital | | | for further | | | workup and | | | treatment. | | | Hospital | | | course by | | | issues:#1 | | | non-ST | | | elevation | | | ID: Status | | | post | | [...] | | | SYMBICORTIn | | | steinbegr 2 | | | puffs into | [...] | | | [place], | | | [id number] | | | COURT, RM | | | [address] | | | n [place] | | | [phone] | | | [phone] | | | lm | | | [place], | | | [id number] | | | COURT, RM | | | [address] | | | n [place] | | | [phone] | | | [phone] | | | weekMershed | | | [place], | | | [id number] | | | [address] | | | [place] | | | [place] | | | [place] | | | [phone] | | | [phone] 1 | | | weekSigned: | | | JUNIE | | | JOSHI | | | 70969:21 PM | +---+ + +--------+ +---+ + [...] whether | | | | | | kiana or | | | | | | [...] | | | | | [place] [address] | | | | | | [phone] | | | | | | | | +--------+ + + + + | 12/04/ | Office | | Cecilia Mccoy, | | | 2017 | Visit | | [address] | | | | | | [address] [place], | | | | | | [place] [address] | | | | | | [phone] | | | | | | | | +--------+ + + + + | 01/08/ | Office | | Cecilia Mccoy, | | | 2017 | Visit | | MD [address] | | | | | | [address] [place], | | | | | | [place] [address] | | | | | | [phone] | | | | | | | [...] [place] | | | | | | [address] | | | | | | | [...] whether | | | | | | kiana or | | | | | | [...] + + | [facility] | [address] | [place] [address] | | + + + + + [...] | | | | | performed at [facility], [facility] W | | | | | [facility], | | | | | [place] [address] | | | | |MICRO | | | | |NORMAL PLT MORPH | | | | |Testing performed at [facility], [facility] [place] [address] | | | | | | | | + + + + + + + | Specimen | + + | Blood | + + + + + + + | Performing | Address | City/State/Zipcode | Phone Number | | Organization | | | | + + + + + | [facility] | [address] | [place] [address] | [phone] | | LABORATORY | Blvd. | | [...] (L) | 6.3 - 8.2 g/dL | [facility] | | | | | LABORATORY | [...] the | | | | | MDRD [facility] traceable | | | | | equation.Testing | | | | | performed at [facility], [address] | | | | | [facility], | | | | | [place] [address] | | | + + + + + + + | Specimen | + + | Blood | + + + + + + + | Performing | Address | City/State/Zipcode | Phone Number | | Organization | | | | + + + + + | [facility] | [address] | [place] [address] | [phone] | | LABORATORY | Blvd. | | [...] [address], | | | | | [place] [address] | | | + + + + + + + | Specimen | + + | Blood | + + + + + + + | Performing | Address | City/State/Zipcode | Phone Number | | Organization | | | | + + + + + | [facility] | [address] [place] [address] | [place] [address] | [phone] | | LABORATORY | [place] | | | + + + + + Folate (10/25/2017 2:43 PM) + + + + + | Component | Value | Ref Range | Performed At | + + + + + | FOLATE | 18.6Comment: Testing | >5.4 ng/mL | [facility] | | | performed at [facility], [address] | | LABORATORY | | | [address], | | | | | [place] [address] | | | + + + + + + + | Specimen | + + | Blood | + + + + + + + | Performing | Address | City/State/Zipcode | Phone Number | | Organization | | | | + + + + + | [facility] | [address] | [place] [address] | [phone] | | LABORATORY | Blvd. | | | + + + + + Ferritin (10/25/2017 2:43 PM) + + + + + | Component | Value | Ref Range | Performed At | + + + + + | FERRITIN | 156Comment: Testing | 11 - 450 ng/mL | [facility] | | | performed at [facility], [address] | | LABORATORY | | | [facility], | | | | | [place] [address] | | | + + + + + + + | Specimen | + + | Blood | + + + + + + + | Performing | Address | City/State/Zipcode | Phone Number | | Organization | | | | + + + + + | [facility] | [address] | [place] [address] | [phone] | | LABORATORY | Blvd. | | | + + + + + Vitamin B12 (10/25/2017 2:43 PM) + + + + + | Component | Value | Ref Range | Performed At | + + + + + | VITAMIN B12 | 292Comment: Testing | 254 - 1,320 pg/mL | [facility] | | | performed at [facility], [address] | | LABORATORY | | | [facility], | | | | | [place] [address] | | | + + + + + + + | Specimen | + + | Blood | + + + + + + + | Performing | Address | City/State/Zipcode | Phone Number | | Organization | | | | + + + + + | [facility] | [address] | [place] [address] | [phone] | | LABORATORY | Blvd. | | [...] | + + + + + | [facility] | [address] | [place] [address] | | + + + + + CL coronary angio with grafts (10/24/2017 8:09 PM) + + + | Narrative | Performed At | + + + | | [facility] | | | RADIOLOGY | | DATE [...] needle, right femoral access was obtained. A 5-Mauritanian | | | sheath was introduced without any difficulty. A 0.035 wire was | | | used and advanced under fluoroscopic guidance into the ascending | | | aorta. A 5-Mauritanian JL4 catheter was used and advanced over [...] over the wire was done with a 5-Mauritanian | | | multipurpose catheter that selectively engaged the right SVG to RCA | | | graft. Multiple views were obtained. Exchange over the wire was | | | done with 5-Mauritanian AL1 catheter that selectively engaged the SVG [...] needle, right femoral access was obtained. A 5-Mauritanian sheath | | was introduced without any difficulty. A 0.035 wire was used and advanced | | under fluoroscopic guidance into the ascending aorta. A 5-Mauritanian JL4 | | catheter was used and [...] over the wire was done with a 5-Mauritanian | | multipurpose catheter that selectively engaged the right SVG to RCA graft. | | Multiple views were obtained. Exchange over the wire was done with | | 5-Mauritanian AL1 catheter that selectively engaged the SVG [...] + + | Performing | Address | City/State/[facility] | Phone Number | | Organization | | | | + + + + + | [facility] | [address] | [place] [address] | | + + + + + [...] | + + + + + | [facility] | [address] | [place] [address] | | + + + + + CT chest without contrast (10/24/2017 11:22 AM) + + + | Impressions | Performed At | + + + | 1. At the very least there is pulmonary vascular congestion, | [facility] | | edema-and centrilobular emphysema is [...] Earlier chest | | | radiograph. FINDINGS: Presidential Helicopter Crew Chief demonstrates cardiomegaly, sternal | | | wires [...] patient exposure.PRIOR EXAMINATION: Earlier chest | | radiograph.FINDINGS:Presidential Helicopter Crew Chief demonstrates cardiomegaly, sternal wires and dense reticular [...] | + + + + + | [facility] | [address] | [place] [address] | | + + + + + [...] GERMAN ROSE Date of : 1945 | [facility] | | Performing Physician: Cecilia Mccoy [...] LA/Ao: 1.22 D-E Excursion: 2.29 cm E-F Cayey: 0.09 | | | m/s AV maxP.18 [...] 0.00 | | | m/s TV Dec Cayey: 3.93 m/s2 TV Dec Time: 207.73 ms TV E | | | Ed: 0.56 m/s TV E/A Ratio: 69.55 Marketing Research Analyst: CM | | | Authenticated by: Cecilia Nadine Report Date/Time: 10-24-2017 13:7:33 | | | | | + + + + + | Procedure Note | + + | Steven, Rad Results In - 10/24/2017 1:10 PM PDT Patient Name: Raegan ROSE of : | | 4Accession: [id number] Physician: Cecilia | | Hectoramara INDICATIONS------ | [...] mlLAESV Index (A-L): 41.48 ml/m2LAAs A2C: 17.05 [id number] A-L A2C: 48.56 | | mlLALs A2C: 5.08 cmLAAs A4C: 26.95 [id number] A-L A4C: 95.07 mlLALs A4C: 6.48 cmAo | | Diam: 4.03 cmAV Cusp: 1.91 cmLA Diam: 4.92 cmLA/Ao: 1.22 D-E Excursion: 2.29 | | cmE-F Cayey: 0.09 m/Leigha maxP.18 mmHgAV meanP.51 mmHgAV Vmax: 1.59 m/Leigha | | Vmean: 1.23 m/Leigha VTI: 28.06 cmAVA Vmax: 3.26 cm2AVA (VTI): 3.35 as4EDHA Vmax: | | 0.00 cm2/m2AVAI (VTI): 0.00 [...] 3.04 m/sTV A Ed: 0.00 m/sTV Dec Cayey: 3.93 m/s2TV | | Dec Time: 207.73 msTV E Ed: 0.56 m/sTV E/A Ratio: 69.55 Marketing Research Analyst: | | CMAuthenticated by: Cecilia [facility] CenterReport Date/Time: 10-24-2017 13:7:33IMPRESSION:1. The [...] | |D-E Excursion: 2.29 cm | |E-F Cayey: 0.09 m/s | |AV maxP.18 mmHg | [...] A Ed: 0.00 m/s | |TV Dec Cayey: 3.93 m/s2 | |TV Dec Time: 207.73 ms | |TV E Ed: 0.56 m/s | |TV E/A Ratio: 69.55 | | | |Marketing Research Analyst: CM | |Authenticated by: Cecilia Mccoy | [...] | + + + + + | [facility] | [address] | [place] [address] | | + + + + + [...] + + + + | Calculated R [place] | -81 | degrees | [facility] E[facility] | + + + + + | Calculated T [place] | 5 | degrees | [facility] EKG | + + + + + | Diagnosis | Atrial fibrillationRight | | [facility] E[facility] | | | bundle branch blockLeft [...] | + + + + + | [facility] | [address] | [place] [address] | | + + + + + Troponin I (10/24/2017 5:51 AM)Only the most recent of 3 results within the time period is included. + + + + + | Component | Value | Ref Range | Performed At | + + + + + | TROPONIN I | 1.28 ()Comment: 0.00 | 0.00 - 0.10 ng/mL | [facility] | | | to 0.10 CONSISTENT [...] | | | | CRITERIA FOR ACUTE ID | | | | | CALLED NURSING UNITREAD | | | | | BACK RESULTS | | | | | VERIFIEDJEJEREMIAH W IN 8RP | | | | | AT 0658 BY TDTesting | | | | | performed at [facility];8 | | | | | [facility];[place], [place] | | | | | [address] | | | + + + + + + + | Specimen | + + | Blood | + + + + + + + | Performing | Address | City/State/Zipcode | Phone Number | | Organization | | | | + + + + + | [facility] | [address] | [place] [address] | | + + + + + [...] + + + + | [facility] | [address] | [place] [address] | [phone] | | LABORATORY | Blvd. | | | + + + + + Protime-INR (10/24/2017 1:57 AM) + + + + + | Component | Value | Ref Range | Performed At | + + + + + | INR | 1.2Comment: REFERENCE | | [facility] | | | RANGE:0.9 - | [...] | | | | | performed at [facility] | | | | | [facility];[place], [place] | | | | | [address] | | | + + + + + + + | Specimen | + + | Blood | + + + + + + + | Performing | Address | City/State/Zipcode | Phone Number | | Organization | | | | + + + + + | [facility] | [address] | [facility] [place] [place] [facility] [place] [address] | | + + + + + TSH (10/24/2017 1:57 AM) + + + + + | Component | Value | Ref Range | Performed At | + + + + + | TSH | 4.150Comment: Testing | 0.450 - 5.100 uIU/mL | [facility] | | | performed at [facility], [address] | | LABORATORY | | | [address], | | | | | [place] [address] | | | + + + + + + + | Specimen | + + | Blood | + + + + + + + | Performing | Address | City/State/Zipcode | Phone Number | | Organization | | | | + + + + + | [facility] | [address] | [place] [address] | [phone] | | LABORATORY | [place]. | | | + + + + + Phosphorus (10/24/2017 1:57 AM) + + + + + | Component | Value | Ref Range | Performed At | + + + + + | PHOSPHORUS | 3.4Comment: Testing | 2.3 - 4.8 mg/dL | [facility] | | | performed at [facility], [address] | | LABORATORY | | | [address], | | | | | [place] [address] | | | + + + + + + + | Specimen | + + | Blood | + + + + + + + | Performing | Address | City/State/Zipcode | Phone Number | | Organization | | | | + + + + + | [facility] | [address] | [place] [address] | [phone] | | LABORATORY | Blvd. | | [...] W | | LABORATORY | | | [facility], | | | | | [place] [address] | | | + + + + + + + | Specimen | + + | Blood | + + + + + + + | Performing | Address | City/State/Zipcode | Phone Number | | Organization | | | | + + + + + | [facility] | [address] | [place] [address] | [phone] | | LABORATORY | Blvd. | | [...] | [facility] | | | performed at [facility], [address] | | LABORATORY | | | [facility], | | | | | [place] [address] | | | + + + + + + + | Specimen | + + | Blood | + + + + + + + | Performing | Address | City/State/Zipcode | Phone Number | | Organization | | | | + + + + + | [facility] | [address] | [place] [address] | [phone] | | LABORATORY | Blvd. | | [...] 1.3 | 0.70 - 1.30 mg/dL | [facility] | | | | | LABORATORY | + + + + + | BUN/CREAT | 11 | | [facility] | | | | | LABORATORY | + + + + + | CALCIUM | 8.6 | 8.5 - 10.5 mg/dL | [facility] | | | | | LABORATORY | + + + + + | EGFR | 54 (L)Comment: GFR <60: | >60 mL/min/1.73m2 | [facility] | | | CHRONIC KIDNEY [...] | | | | | performed at [facility], [address] | | | | | [facility] [address], | | | | | [place] [address] | | | + + + + + + + | Specimen | + + | Blood | + + + + + + + | Performing | Address | City/State/Zipcode | Phone Number | | Organization | | | | + + + + + | [facility] | [address] | [place] [address] | [phone] | | LABORATORY | [place]. | | | + + + + + Septic Lactic Acid (10/23/2017 11:50 PM) + + + + + | Component | Value | Ref Range | Performed At | + + + + + | LACTIC ACID | 1.1Comment: Testing | 0.4 - 2.0 mmol/L | [facility] | | | performed at [facility];[address] | | | | | [address];[place] | | | | | [address] | | | + + + + + + + + + + | Performing | Address | City/State/Zipcode | Phone Number | | Organization | | | | + + + + + | [facility] | [address] | [place] [address] | | + + + + + [...] [facility] | [address] | [place] [address] | | + + + + + [...] [facility] | [address] | [place] [address] | | + + + + + [...] +------+-------+ + | MEDICARE | MEDICA | [id number] | | | [address] | | | RE | | | | [place] [address] | | | IP-OP | | | | | + +--------+ +------+-------+ + | [facility] | [place] | [id number] | | | | | | | [...] | | marci/Arvind | | 1945 | [phone] | [place] | | | irish | | | [address]: | [address] | | | | | | | | | | | | | [phone] | | | | | | 5865 | | + +--------+ +--------+ + +
--- OUTSIDE RECORDS SUMMARY | ~2017-11-13 | XMS | Encounter Summary ---
Demographics + + + | Address | [address] | | | [place] [address] | + + + | Home Phone | | + + + | Preferred Language | Unknown | + + + | Marital Status | | + + + | Sikhism Affiliation | 1028 | + + + | Race | Unknown | + + + | Ethnic Group | Unknown | + + + Author + + + | Author | [facility] | + + + | Organization | [facility] | + + + | Address | Unknown | + + + | Phone | Unavailable | + + + Support + + + + + | Name | Relationship | Address | Phone | + + + + + | Blossom Rose | ECON | [address] | | | | | [place] | | | | | [address] | | + + + + + | Message,Detailed | ECON | Unknown | | + + + + + Care Team Providers + +------+ + | Care Reactor Service Operator Name | Role | Phone | + +------+ + | Nelson Laird MD | PCP | | + +------+ + Encounter Details +--------+ + + + + | Date | Type | Department | Care Team | Description | +--------+ + + + + | 10/24/ | Procedure | [facility] | | | [facility] | [facility] | [facility] 8th | | | | | | Floor [place] | | | | | | [address] | | | | | | [place] [address] | | | | | | [phone] | | | +--------+ + + + [...] | | | | | [place] [address] | | | | | | [phone] | | | | | | | | +--------+ + + + + | 12/04/ | Office | Cardiology | Cristian Mccoy, | | | 2017 | Visit | | MD [address] | | | | | | [address] [place], | | | | | | [place] [address] | | | | | | [phone] | | | | | | | | +--------+ + + + + | 01/08/ | Office | Cardiology | Cristian Mccoy, | | | 2017 | Visit | | MD [address] | | | | | | [address] [place], | | | | | | [place] [address] | | | | | | [phone] | | | | | | | [...]
--- OUTSIDE RECORDS SUMMARY | ~2017-11-13 | XMS | Encounter Summary ---
Demographics + + + | Address | [address] | | | [place] [address] | + + + | Home Phone | | + + + | Preferred Language | Unknown | + + + | Marital Status | | + + + | Nondenominational Affiliation | 1028 | + + + | Race | Unknown | + + + | Ethnic Group | Unknown | + + + Author + + + | Author | [facility] | + + + | Organization | [facility] | + + + | Address | Unknown | + + + | Phone | Unavailable | + + + Support + + + + + | Name | Relationship | Address | Phone | + + + + + | Blossom Rose | ECON | [address] | | | | | [place] | | | | | [address] | | + + + + + | Message,Detailed | ECON | Unknown | | + + + + + Care Team Providers + +------+ + | Care Typewriter Aligner Name | Role | Phone | + [...] + | 10/23/ | Ancillary | [facility] | See, Medical | Pain | | 2018 | [facility] | [facility] [address] | Record | | | | | [address] | | | | | | [place] [address] | | | | | | [phone] | | | +--------+ + + + [...] | | | | | [place] [address] | | | | | | [phone] | | | | | | | | +--------+ + + + + | 12/04/ | Office | Cardiology | Cristian Mccoy, | | | 2017 | Visit | | MD [address] | | | | | | Dr [place], | | | | | | [place] [address] | | | | | | [phone] | | | | | | | | +--------+ + + + + | 01/08/ | Office | Cardiology | Cristian Mccoy, | | | 2017 | Visit | | MD [address] | | | | | | [address] [place], | | | | | | [place] [address] | | | | | | [phone] | | | | | | | [...] [place] | | | | | | [address] | | | | | | | [...] [facility] | [address] | [place] [address] | | + + + + + in this encounter Visit Diagnoses + + | Diagnosis | + + | Pain | + + | Generalized pain | + +"
--- OUTSIDE RECORDS SUMMARY | ~2017-11-13 | XMS | Encounter Summary ---
Demographics + + + | Address | [address] | | | [place] [address] | + + + | Home Phone | | + + + | Preferred Language | Unknown | + + + | Marital Status | | + + + | Mormonism Affiliation | 1028 | + + + | Race | Unknown | + + + | Ethnic Group | Unknown | + + + Author + + + | Author | [facility] | + + + | Organization | [facility] [employer] [facility] | + + + | Address | Unknown | + + + | Phone | Unavailable | + + + Support + + + + + | Name | Relationship | Address | Phone | + + + + + | Blossom Rose | ECON | [address] | | | | | [place] | | | | | [address] | | + + + + + | Message,Detailed | ECON | Unknown | | + + + + + Care Team Providers + +------+ + | Care Commercial Lending Vice President Name | Role | Phone | + [...] + + | 10/16/ | Hospital | [facility] | See, Medical | Pain | | 2018 | Encounter | [facility] | Record | | | | | RADIOLOGY [address] | | | | | [address] | | | | | | [place] [address] | | | | | | [phone] | | | +--------+ + + + [...] by | | | | | | [id number] | mouth daily. | | | | [...] | | | | | | [place] [id number] | | | | | | [phone] | | | | | | | | +--------+ + + + + | 12/04/ | Office | Cardiology | Cristian Mccoy, | | | 2017 | Visit | | MD [address] | | | | | | Dr [place], | | | | | | [place] [address] | | | | | | [phone] | | | | | | | | +--------+ + + + + | 01/08/ | Office | Cardiology | HectorCristian wiggins, | | | 2017 | Visit | | MD [address] | | | | | | [address] [place], | | | | | | [place] [address] | | | | | | [phone] | | | | | | | [...] [place] | | | | | | [address] | | | | | | | [...] RADIOLOGY | [address] | [place] [address] | | + + + + + in this encounter Visit Diagnoses + + | Diagnosis | + + | Pain | + + | Generalized pain | + +"
--- OUTSIDE RECORDS SUMMARY | ~2017-11-13 | XMS | Encounter Summary ---
Demographics + + + | Address | [address] | | | [place] [address] | + + + | Home Phone | | + + + | Preferred Language | Unknown | + + + | Marital Status | | + + + | Mandaen Affiliation | 1028 | + + + | Race | Unknown | + + + | Ethnic Group | Unknown | + + + Author + + + | Author | [facility] | + + + | Organization | [facility] | + + + | Address | Unknown | + + + | Phone | Unavailable | + + + Support + + + + + | Name | Relationship | Address | Phone | + + + + + | Blossom Rose | ECON | [address] | | | | | [place] | | | | | [address] | | + + + + + | Message,Detailed | ECON | Unknown | | + + + + + Care Team Providers + +------+ + | Care Callisthenics Instructor Name | Role | Phone | [...] | | | | | | | [address] | | | | | | | Phone: | | | | | | | [phone] | | | | | | | Fax: | | | | | | | [phone] | | + + + + + [...] | | | | cardiovascul | | [address] Phone: | | | | | ar disease) | | [phone] | | | | | Essential | [...] + + | 10/23/ | Hospital | [facility] | Tameka Duke | Dysphagia, | | 2018 - | Encounter | [facility] 8th | MD Leeroy [address] | unspecified type | | | | Floor [facility] | [address] [place] | (Primary Dx); | | 10/26/ | | [address] | [address] | Thoracic aortic | | 2018 | | [place] [address] | | aneurysm without | | | | [phone] | Junie Delvalle MD | rupture ([facility]); ASCVD | | | | | [address] | (arteriosclerotic | | | | | [place] [address] | cardiovascular | | | | | [phone] | disease); Chronic | | | | | | atrial fibrillation | | | | | | ([facility]); Essential | | | | | [...] from lali jacobo. Patient ID: Pavithra Rose [id number] 72 y.o. 1945 Admit date: 10/23/2017 Discharge [...] radiologist report and is used for image Silka NUVETA only Ct Head Without Contrast Result Date: 10/23/2017 This is a non-reportable procedure without a radiologist report and is used for image Silka NUVETA only Ct Chest Without Contrast Result Date: 10/24/2017 HISTORY: 72 years year-old Male, hemoptysis. TECHNIQUE: CT through the chest. Noncontrast e xamination. Automatic dose adjustment to minimize patient exposure. PRIOR EXAMINATION: Loletai er chest radiograph. FINDINGS: Tubing Supervisor demonstrates cardiomegaly, sternal wires and dense reti [...] radiologist report and is used for image [place] only Cl Coronary Angio With Grafts Result [...] needle, right femoral access was obtained. A 5-Tuvaluan sheath was introduced without any difficulty. A 0.035 wire was used and advanced under fluoroscopic gu idance into the ascending aorta. A 5-Tuvaluan JL4 catheter was used and advanced over [...] the wire was don e with a 5-Tuvaluan multipurpose catheter that selectively engaged the right SVG to RCA graft. Multiple views were obtained. Exchange over the wire was done with 5-Tuvaluan AL1 catheter t hat selectively engaged the [...] 0.56 m/s TV E /A Ratio: 69.55 Electoral Officer: ADAM Authenticated by: Cecilia Mccoy Report Date/Time: [...] and GI bleed who we nt to [facility] with productive cough, shortness of breath and hemoptysis seconda ry to aspiration pneumonia and found to have positive troponin around 1 hence he was transf erred to [facility] for further workup and treatment. Hospital course by issues: #1 non-ST elevation [place]: Status post cardiac cath which showed triple-vessel disease and rec ommend medical management only. Patient started on Plavix, atorvastatin, patient allergic t o beta barbara has not initiated and patient currently asymptomatic. Patient is being disch arged home with follow-up with his shank pinner #2 aspiration pneumonia for which patient was [...] Refills: 0 Commonly known as: PEPTO BISMOL [id number] PO Refills: 0 cholecalciferol 1000 units tablet [...] for this admission. Nelson Laird MD [address] [facility], [address] [place] [address] Nelson Laird MD [address] [facility], [address] [place] [address] In 1 week Cecilia Mccoy MD [address] [place] [address] In 1 week Signed: JUNIE DELVALLE 10/26/2017 12:21 PMin this encounter Discharge Instructions The following attachments cannot be sent through Care Everywhere.Amoxicillin; Clavulanic Ac id tablets (Maori)Clopidogrel tablets (Maori)in this encounter Medications at Time of Discharge [...] by | | | | | | [id number]-[id number]-ZN | mouth daily. | | | | [...] may be different fro m the original. [facility] Service: Cardiology Progress Note Name of Paper Cone Maker: Cecilia Mccoy MD I have seen [...] not amenable to PCI. 2. Non-ST elevation [place]. 3. Dysphagia. 4. Hemoptysis minimal, improved. 5. Chronic atrial fibrillation. On rate control strategy and anticoagulation. CHADSVASc sco re of 4. 6. AAA. 7. Coronary artery disease S/[place] [address]. 8. RBBB. 9. Hypertension blood pressures controlled. [...] Hospitalist Progress Note Pavithra Rose 72 y.o. [id number] 8108/8108-1 male [facility] Day: LOS: 2 days Patient Summary: [...] cardiac stress test study who went to [facility] with ongoing productive cough, shortness of breath and hemoptysis, where he was found to hav e positive troponin and chest x-ray showed pneumonia and patient was transferred to [facility] for further workup and treatment. The [...] Anaphylaxis Diltiazem Edema Gabapentin Other (See Comments) CLINIC LICENSED PRACTICAL NURSE Imipramine Other (See Comments) Urinary retention Metoprolol [...] Procedure Component Value Units Date/Time Iron panel [[id number]] Collected: 10/25/171442 Specimen: Blood Updated: 10/25/171449 Vitamin B12 [[id number]] Collected: 10/25/171442 Specimen: Blood Updated: 08/10/18 1450 Ferritin [[id number]] Collected: 10/25/17 1443 Specimen: Blood Updated: 10/25/17 1450 Folate [[id number]] Collected: 10/25/17 1443 Specimen: Blood Updated: 10/25/17 1450 CBC W/Auto Diff (Reflex to Manual) [[id number]] (Abnormal) Collected: 10/25/17 1000 Specimen: Blood Updated: [...] 0.04 K/uL MORPHOLOGY 2+ Comprehensive metabolic panel [[id number]] (Abnormal) Collected: 10/25/17 1000 Specimen: Blood Updated: [...] U/L EGFR 59 (L) mL/min/1.73m2 Sputum culture [[id number]] Collected: 10/24/17 0400 Specimen: Sputum from Sputum [...] WILL BE HELD 48 HOURS. Troponin I [[id number]] (Abnormal) Collected: 10/24/17550 Specimen: Blood Updated: 10/24/17657 TROPONIN I 1.28 (HH) ng/mL CBC W/Auto Diff (Reflex to Manual) [[id number]] (Abnormal) Collected: 10/24/17156 Specimen: Blood Updated: 10/24/17436 [...] K/uL Platelet Estimate ADEQUATE MORPHOLOGY 2+ Magnesium [[id number]] Collected: 10/24/17156 Specimen: Blood Updated: 10/24/17433 MAGNESIUM 1.8 mg/dL Phosphorus [[id number]] Collected: 10/24/17156 Specimen: Blood Updated: 10/24/17433 PHOSPHORUS 3.4 mg/dL TSH [[id number]] Collected: 10/24/17156 Specimen: Blood Updated: 10/24/17433 TSH 4.150 uIU/mL Basic metabolic panel [[id number]] (Abnormal) Collected: 10/24/17156 Specimen: Blood Updated: 10/24/17433 SODIUM 138 mmol/L POTASSIUM 4.3 mmol/L CHLORIDE 104 mmol/L CO2 24 mmol/L ANION GAP AGAP 14 mmol/L GLUCOSE 75 mg/dL BUN 14 mg/dL CREATININE 1.3 mg/dL BUN/CREAT 11 CALCIUM 8.6 mg/dL EGFR 54 (L) mL/min/1.73m2 Lipid panel [[id number]] (Abnormal) Collected: 10/24/17156 Specimen: Blood Updated: 10/24/17 0434 CHOLESTEROL 103 mg/dL Triglycerides 116 mg/dL HDL CHOL 24 (L) mg/dL LDL CALC 56 mg/dL Troponin I [[id number]] (Abnormal) Collected: 10/24/17156 Specimen: Blood Updated: 10/24/17 0251 TROPONIN I 1.72 (HH) ng/mL Protime-INR [[id number]] Collected: 10/24/17156 Specimen: Blood Updated: 10/24/17 022 INR 1.2 Septic Lactic Acid [[id number]] Collected: 10/23/172349 Updated: 10/24/17 0023 LACTIC ACID 1.1 mmol/L Troponin I [[id number]] (Abnormal) Collected: 10/23/172211 Specimen: Blood Updated: 10/23/172253 [...] radiologist report and is used for image [place] NUVETA only Ct Head Without Contrast Result Date: 10/23/2017 This is a non-reportable procedure without a radiologist report and is used for image [place] NUVETA only Ct Chest Without Contrast Result Date: 10/24/2017 HISTORY: 72 years year-old Male, hemoptysis. TECHNIQUE: CT through the chest. Noncontrast e xamination. Automatic dose adjustment to minimize patient exposure. PRIOR EXAMINATION: Earli er chest radiograph. FINDINGS: Tubing Supervisor demonstrates cardiomegaly, sternal wires and dense reti [...] radiologist report and is used for image [place] only Cl Coronary Angio With Grafts Result [...] needle, right femoral access was obtained. A 5-Tuvaluan sheath was introduced without any difficulty. A 0.035 wire was used and advanced under fluoroscopic gu idance into the ascending aorta. A 5-Tuvaluan JL4 catheter was used and advanced over [...] the wire was don e with a 5-Tuvaluan multipurpose catheter that selectively engaged the right SVG to RCA graft. Multiple views were obtained. Exchange over the wire was done with 5-Tuvaluan AL1 catheter t hat selectively engaged the [...] 0.56 m/s TV E /A Ratio: 69.55 Electoral Officer: ADAM Authenticated by: Cecilia [place] Report Date/Time: 018 13:7:33 1. The left [...] minutes. JUNIE DELVALLE MD 10/25/2017 Ariadne El CCC-CAMERA REPAIR TECHNICIAN - 10/25/2017 2:22 PM PDTBEDSIDE SWALLOW CAMERA REPAIR TECHNICIAN Last Visit CAMERA REPAIR TECHNICIAN Received On: 10/25/17 Requires CAMERA REPAIR TECHNICIAN Follow Up: Yes Recommendations Liquids Consistency Recommendations: [...] evidence of learning [] Refused Ariadne El CCC-CAMERA REPAIR TECHNICIAN Cecilia Mccoy MD - 10/25/2017 5:46 AM PDTFormatting of th is note may be different from the original. [facility] Service: Cardiology Progress Note Name of Paper Cone Maker: Cecilia Mccoy MD I have seen [...] not amenable to PCI. 2. Non-ST elevation VT. 3. Dysphagia. 4. Hemoptysis minimal, improved. 5. Chronic atrial fibrillation. On rate control strategy and anticoagulation. CHADSVASc sco re of 4. 6. AAA. 7. Coronary artery disease S/[place] CABG x 72289. 8. RBBB. 9. Hypertension blood pressures controlled. [...] Code Mershed AlSamara, MD 10/25/2017 Luca Toussaint, [facility] - 10/24/2017 8:30 PM PDTNote ccl 49ml/min meds reviewed pharmacy will follow [facility] 2030AlsCecilia wiggins MD - 10/24/2017 6:11 PM [facility]iology Pre-Operative History & [...] more than one vascular access site, , [place], CVA, bleedin g (including the need for [...] Hospitalist Progress Note Pavithra Rose 72 y.o. [id number] 8108/8108-1 male [facility] Day: LOS: 1 day Patient Summary: [...] cardiac stress test study who went to [facility] with ongoing productive cough, shortness of breath and hemoptysis, where he was found to hav e positive troponin and chest x-ray showed pneumonia and patient was transferred to [facility] for further workup and treatment. The [...] Anaphylaxis Diltiazem Edema Gabapentin Other (See Comments) CLINIC LICENSED PRACTICAL NURSE Imipramine Other (See Comments) Urinary retention Metoprolol [...] Procedure Component Value Units Date/Time Sputum culture [[id number]] Collected: 10/24/17 0400 Specimen: Sputum from Sputum Updated: 10/24/17 0705 Troponin I [[id number]] (Abnormal) Collected: 10/24/17 0551 Specimen: Blood Updated: 10/24/17 0658 TROPONIN I 1.28 (HH) ng/mL CBC W/Auto Diff (Reflex to Manual) [[id number]] (Abnormal) Collected: 10/24/17156 Specimen: Blood Updated: 10/24/17436 [...] K/uL Platelet Estimate ADEQUATE MORPHOLOGY 2+ Magnesium [[id number]] Collected: 10/24/17156 Specimen: Blood Updated: 10/24/17433 MAGNESIUM 1.8 mg/dL Phosphorus [[id number]] Collected: 10/24/17156 Specimen: Blood Updated: 10/24/17433 PHOSPHORUS 3.4 mg/dL TSH [[id number]] Collected: 10/24/17156 Specimen: Blood Updated: 10/24/17433 TSH 4.150 uIU/mL Basic metabolic panel [[id number]] (Abnormal) Collected: 10/24/17156 Specimen: Blood Updated: 10/24/17433 SODIUM 138 mmol/L POTASSIUM 4.3 mmol/L CHLORIDE 104 mmol/L CO2 24 mmol/L ANION GAP AGAP 14 mmol/L GLUCOSE 75 mg/dL BUN 14 mg/dL CREATININE 1.3 mg/dL BUN/CREAT 11 CALCIUM 8.6 mg/dL EGFR 54 (L) mL/min/1.73m2 Lipid panel [[id number]] (Abnormal) Collected: 10/24/17156 Specimen: Blood Updated: 10/24/17433 CHOLESTEROL 103 mg/dL Triglycerides 116 mg/dL HDL CHOL 24 (L) mg/dL LDL CALC 56 mg/dL Troponin I [[id number]] (Abnormal) Collected: 10/24/17156 Specimen: Blood Updated: 10/24/17 025 TROPONIN I 1.72 (HH) ng/mL Protime-INR [[id number]] Collected: 08/09/18 0157 Specimen: Blood Updated: 10/24/17 0221 INR 1.2 Septic Lactic Acid [[id number]] Collected: 10/23/17 2350 Updated: 10/24/17 0023 LACTIC ACID 1.1 mmol/L Troponin I [[id number]] (Abnormal) Collected: 10/23/172 Specimen: Blood Updated: 10/23/17 [...] radiologist report and is used for image [place] NUVET[facility] only Ct Head Without Contrast Result Date: 10/23/2017 This is a non-reportable procedure without a radiologist report and is used for image [place] NUVETA only Ct Chest Without Contrast Result Date: 10/24/2017 HISTORY: 72 years year-old Male, hemoptysis. TECHNIQUE: CT through the chest. Noncontrast e xamination. Automatic dose adjustment to minimize patient exposure. PRIOR EXAMINATION: Earli er chest radiograph. FINDINGS: Tubing Supervisor demonstrates cardiomegaly, sternal wires and dense reti [...] 0.56 m/s TV E /A Ratio: 69.55 Electoral Officer: ADAM Authenticated by: Cecilia Mccoy Report Date/Time: [...] worse and case discussed with Dr. Mccoy, shank pinner, who is in agreement and will ke [...] hasn't eaten in two days. Is currently INSPECTOR MISSILE O prior to swallow study. Type of Food / Meals NPO Nutrition-Focused Physical Findings Overall Appearance Reports he appears much thinner and clothes have not been fitting him as well. Body Language Pt very pleasant. Extremities, Muscles and Bones Bruising Digestive System (Mouth to Rectum) CAMERA REPAIR TECHNICIAN following. Anthropometrics Weight change Admit wt: 71.8 [...] Estimated Energy Needs Total Energy Estimated Needs 2119-7623 kcal/day Method for Estimating Needs 25-30 kcal/kg at 71.8 kg admit wt Estimated Protein Needs Total Protein Estimated Needs 86-108 g/day Method for Estimating Needs 1.2-1.5 g/kg Recommendations Recommended energy needs ADAT to cardiac with textures/consistencies per CAMERA REPAIR TECHNICIAN. Upon diet adv ancement, encourage increased energy [...] Moderate Lucy Doshi, RD 10/24/2017 Helen Soto [facility] - 10/23/2017 10:07 PM PDTFormatting of this [...] | | | | | [place] [address] | | | | | | [phone] | | | | | | | | +--------+ + + + + | 12/04/ | Office | Cardiology | Cecilia Mccoy, | | | 2017 | Visit | | MD Alayna Rajan | | | | | | Dr [address], | | | | | | [place] [address] | | | | | | [phone] | | | | | | | | +--------+ + + + + | 01/08/ | Office | Cardiology | Cecilia Mccoy, | | | 2017 | Visit | | MD [address] | | | | | | [address], | | | | | | [place] [address] | | | | | | [phone] | | | | | | | [...] [place] | | | | | | [address] | | | | | | | [...] | + + + + + | [facility] | [address] [facility] | [place] [address] | | + + + + + [...] 8.5 | 8.5 - 10.5 mg/dL | [facility] | | | | | LABORATORY | + + + + + | TOTAL PROTEIN | 5.5 (L) | 6.3 - 8.2 g/dL | [facility] | | | | | LABORATORY | [...] the | | | | | MDRD IDNE traceable | | | | | equation.Testing | | | | | performed at [facility], [address] | | | | | [facility], | | | | | [place] [address] | | | + + + + + + + | Specimen | + + | Blood | + + + + + + + | Performing | Address | City/State/Zipcode | Phone Number | | Organization | | | | + + + + + | [facility] | [address] | [place] [address] | [phone] | | LABORATORY | [address] | | [...] [address] | | | | | [facility], | | | | | [place] [address] | | | | |MICRO | | | | |NORMAL PLT MORPH | | | | |Testing performed at [facility], [address] [place] [address] | | | | | | | | + + + + + + + | Specimen | + + | Blood | + + + + + + + | Performing | Address | City/State/Zipcode | Phone Number | | Organization | | | | + + + + + | [facility] | [address] | [place] [address] | [phone] | | LABORATORY | [address]vd[address] | | | + + + + + Folate (10/25/2017 2:43 PM) + + + + + | Component | Value | Ref Range | Performed At | + + + + + | FOLATE | 18.6Comment: Testing | >5.4 ng/mL | [facility] | | | performed at [facility], [address] | | LABORATORY | | | [facility], | | | | | [place] [address] | | | + + + + + + + | Specimen | + + | Blood | + + + + + + + | Performing | Address | City/State/Zipcode | Phone Number | | Organization | | | | + + + + + | [facility] | [address] | [place] [address] | [phone] | | LABORATORY | [address]vd[address] | | | + + + + + Ferritin (10/25/2017 2:43 PM) + + + + + | Component | Value | Ref Range | Performed At | + + + + + | FERRITIN | 156Comment: Testing | 11 - 450 ng/mL | [facility] | | | performed at [facility], [address] | | LABORATORY | | | [address] [facility], | | | | | [place] [address] | | | + + + + + + + | Specimen | + + | Blood | + + + + + + + | Performing | Address | City/State/Zipcode | Phone Number | | Organization | | | | + + + + + | [facility] | [address] | [place] [address] | [phone] | | LABORATORY | [address] | | | + + + + + Vitamin B12 (10/25/2017 2:43 PM) + + + + + | Component | Value | Ref Range | Performed At | + + + + + | VITAMIN B12 | 292Comment: Testing | 254 - 1,320 pg/mL | [facility] | | | performed at [facility], [address] | | LABORATORY | | | [facility], | | | | | [place] [address] | | | + + + + + + + | Specimen | + + | Blood | + + + + + + + | Performing | Address | City/State/Zipcode | Phone Number | | Organization | | | | + + + + + | [facility] | [address] | [place] [address] | [phone] | | LABORATORY | [address]. | | [...] | [facility] | | | performed at [facility], [address] | | LABORATORY | | | [address], | | | | | [place] [address] | | | + + + + + + + | Specimen | + + | Blood | + + + + + + + | Performing | Address | City/State/Zipcode | Phone Number | | Organization | | | | + + + + + | [facility] | [address] | [place] [address] | [phone] | | LABORATORY | [address] | | [...] [address] | | | | | [facility], | | | | | [place] [address] | | | + + + + + + + | Specimen | + + | Blood | + + + + + + + | Performing | Address | City/State/Zipcode | Phone Number | | Organization | | | | + + + + + | [facility] | [address] | [place] [address] | [phone] | | LABORATORY | [address] | | [...] [address] | | | | | [facility], | | | | | [place] [address] | | | | |ANISO | | | | |NORMAL PLT MORPH | | | | |Testing performed at [facility], [facility] [place] [address] | | | | | | | | + + + + + + + | Specimen | + + | Blood | + + + + + + + | Performing | Address | City/State/Zipcode | Phone Number | | Organization | | | | + + + + + | [facility] | [address] | [place] [address] | [phone] | | LABORATORY | [address]vd[address] | | [...] | + + + + + | [facility] | [address] | [place] [address] | | + + + + + CL coronary angio with grafts (10/24/2017 8:09 PM) + + + | Narrative | Performed At | + + + | | [facility] | | | RADIOLOGY | | DATE [...] needle, right femoral access was obtained. A 5-Tuvaluan | | | sheath was introduced without any difficulty. A 0.035 wire was | | | used and advanced under fluoroscopic guidance into the ascending | | | aorta. A 5-Tuvaluan JL4 catheter was used and advanced over [...] over the wire was done with a 5-Tuvaluan | | | multipurpose catheter that selectively engaged the right SVG to RCA | | | graft. Multiple views were obtained. Exchange over the wire was | | | done with 5-Tuvaluan AL1 catheter that selectively engaged the SVG [...] needle, right femoral access was obtained. A 5-Tuvaluan sheath | | was introduced without any difficulty. A 0.035 wire was used and advanced | | under fluoroscopic guidance into the ascending aorta. A 5-Tuvaluan JL4 | | catheter was used and [...] over the wire was done with a 5-Tuvaluan | | multipurpose catheter that selectively engaged the right SVG to RCA graft. | | Multiple views were obtained. Exchange over the wire was done with | | 5-Tuvaluan AL1 catheter that selectively engaged the SVG [...] NATHAN | [address] | [place] [address] | | + + + + + [...] | + + + + + | [facility] | [address] | [place] [address] | | + + + + + [...] Earlier chest | | | radiograph. FINDINGS: Tubing Supervisor demonstrates cardiomegaly, sternal | | | wires [...] patient exposure.PRIOR EXAMINATION: Earlier chest | | radiograph.FINDINGS:Tubing Supervisor demonstrates cardiomegaly, sternal wires and dense reticular [...] [facility] | [address] | [place] [address] | | + + + + + [...] [facility] | [address] | [facility] [address] | | + + + + + [...] PAVITHRA ROSE Date of : 1945 | [facility] | | Performing Physician: Cecilia Mccoy [...] Ed: 0.56 m/s TV E/A Ratio: 69.55 Electoral Officer: CM | | | Authenticated by: Cecilia [facility] Report Date/Time: 10-24-2017 13:7:33 | | | | | + + + + + | Procedure Note | + + | Diogo Harris Results In - 10/24/2017 1:10 PM PDT Patient Name: Raegan ROSE of : | | 1945ccession: [id number] Physician: Cecilia | | Alsamara INDICATIONS------ | [...] mlLAESV Index (A-L): 41.48 ml/m2LAAs A2C: 17.05 hk2BXHCJ A-L A2C: 48.56 | | mlLALs A2C: 5.08 cmLAAs A4C: 26.95 xp3CQHLC A-L A4C: 95.07 mlLALs A4C: 6.48 cmAo | | Diam: 4.03 cmAV Cusp: 1.91 cmLA Diam: 4.92 cmLA/Ao: 1.22 D-E Excursion: 2.29 | | cmE-F Fergus: 0.09 m/Leigha maxP.18 mmHgAV meanP.51 mmHgAV Vmax: 1.59 m/Leigha | | Vmean: 1.23 m/Leigha VTI: 28.06 cmAVA Vmax: 3.26 cm2AVA (VTI): 3.35 rk4LOWR Vmax: | | 0.00 cm2/m2AVAI (VTI): 0.00 [...] E Ed: 0.56 m/sTV E/A Ratio: 69.55 Electoral Officer: | | CMAuthenticated by: Cecilia [facility] CenterReport Date/Time: 10-24-2017 13:7:33IMPRESSION:1. The | [...] |TV E/A Ratio: 69.55 | | | |Electoral Officer: CM | |Authenticated by: Cecilia Mccoy | [...] | + + + + + | [facility] | [address] | [place] [address] | | + + + + + [...] QTC Calculation | 451 | ms | [facility] | | (Bezet) | | | | + + + + + | Calculated R [place] | -81 | degrees | [facility] | + + + + + | Calculated T [place] | 5 | degrees | [facility] [...] | + + + + + | [facility] | [address] | [place] [address] | | + + + + + Troponin I (10/24/2017 5:51 AM) + + + + + | Component | Value | Ref Range | Performed At | + + + + + | TROPONIN I | 1.28 ()Comment: 0.00 | 0.00 - 0.10 ng/mL | [facility] | | | to 0.10 CONSISTENT [...] | | | | CRITERIA FOR ACUTE [place] | | | | | CALLED NURSING UNITREAD | | | | | BACK RESULTS | | | | | VERIFIEDFABRICIO Lynch IN 8RP | | | | | AT 0658 BY TDTesting | | | | | performed at [facility];[address] | | | | [address];[place], [place] | | | | | [address] | | | + + + + + + + | Specimen | + + | Blood | + + + + + + + | Performing | Address | City/State/Zipcode | Phone Number | | Organization | | | | + + + + + | [facility] | [address] [facility] [address] | [place] [address] | | + + + + + [...] + + + | [facility] | [address] | [place] [address] | [phone] | | LABORATORY | Blvd. | | [...] | | | | | performed at [facility];[address] | | | | | [address];[place] | | | | | [address] | | | + + + + + + + | Specimen | + + | Blood | + + + + + + + | Performing | Address | City/State/Zipcode | Phone Number | | Organization | | | | + + + + + | [facility] | [address] [facility] | [place] [address] | | + + + + + Troponin I (10/24/2017 1:57 AM) + + + + + | Component | Value | Ref Range | Performed At | + + + + + | TROPONIN I | 1.72 ()Comment: 0.00 | 0.00 - 0.10 ng/mL | [facility] | | | to 0.10 CONSISTENT [...] | | | | CRITERIA FOR ACUTE [place] | | | | | CALLED NURSING UNITREAD | | | | | BACK RESULTS | | | | | REENA Rodríguez IN 8RP | | | | | AT 0250Testing performed | | | | | at [facility];[address] [facility] | | | | | [facility];[place] [address] | | | + + + + + + + | Specimen | + + | Blood | + + + + + + + | Performing | Address | City/State/Zipcode | Phone Number | | Organization | | | | + + + + + | [facility] | [address] | [facility] [address] | | + + + + + TSH (10/24/2017 1:57 AM) + + + + + | Component | Value | Ref Range | Performed At | + + + + + | TSH | 4.150Comment: Testing | 0.450 - 5.100 uIU/mL | [facility] | | | performed at [facility], [address] | | LABORATORY | | | [address], | | | | | [place] [address] | | | + + + + + + + | Specimen | + + | Blood | + + + + + + + | Performing | Address | City/State/Zipcode | Phone Number | | Organization | | | | + + + + + | [facility] | [address] | [place] [address] | [phone] | | LABORATORY | [address] | | [...] | [facility] | | | performed at [facility], [address] | | LABORATORY | | | [address], | | | | | [place] [address] | | | + + + + + + + | Specimen | + + | Blood | + + + + + + + | Performing | Address | City/State/Zipcode | Phone Number | | Organization | | | | + + + + + | [facility] | [address] | [place] [address] | [phone] | | LABORATORY | Blvd. | | | + + + + + Phosphorus (10/24/2017 1:57 AM) + + + + + | Component | Value | Ref Range | Performed At | + + + + + | PHOSPHORUS | 3.4Comment: Testing | 2.3 - 4.8 mg/dL | [facility] | | | performed at [facility], [address] | | LABORATORY | | | [facility] | | | | | [place] [address] | | | + + + + + + + | Specimen | + + | Blood | + + + + + + + | Performing | Address | City/State/Zipcode | Phone Number | | Organization | | | | + + + + + | [facility] | [address] | [place] [address] | [phone] | | LABORATORY | Blvd. | | | + + + + + Magnesium (10/24/2017 1:57 AM) + + + + + | Component | Value | Ref Range | Performed At | + + + + + | MAGNESIUM | 1.8Comment: Testing | 1.7 - 2.4 mg/dL | [facility] | | | performed at [facility], [address] | | LABORATORY | | | [address], | | | | | [place] [address] | | | + + + + + + + | Specimen | + + | Blood | + + + + + + + | Performing | Address | City/State/Zipcode | Phone Number | | Organization | | | | + + + + + | [facility] | [address] | [place] [address] | [phone] | | LABORATORY | Blvd. | | [...] 14 | 5 - 20 mmol/L | [facility] | | | | | LABORATORY | [...] 1.3 | 0.70 - 1.30 mg/dL | [facility] | | | | | LABORATORY | + + + + + | BUN/CREAT | 11 | | [facility] | | | | | LABORATORY | + + + + + | CALCIUM | 8.6 | 8.5 - 10.5 mg/dL | [facility] | | | | | LABORATORY | + + + + + | EGFR | 54 (L)Comment: GFR <60: | >60 mL/min/1.73m2 | [facility] | | | CHRONIC KIDNEY DISEASE, [...] [address] | | | | | [facility], | | | | | [place] [address] | | | + + + + + + + | Specimen | + + | Blood | + + + + + + + | Performing | Address | City/State/Zipcode | Phone Number | | Organization | | | | + + + + + | [facility] | [address] | [place] [address] | [phone] | | LABORATORY | [address] | | [...] [address], | | | | | [place] [address] | | | | |TEARDROP | | | | |NORMAL PLT MORPH | | | | |Testing performed at [facility], [address] [facility], [place], [place] [address] | | | | | | | | + + -----+ + + + + | Specimen | + + | Blood | + + + + + + + | Performing | Address | City/State/Zipcode | Phone Number | | Organization | | | | + + + + + | [facility] | [address] [place] [address] | [place] [address] | [phone] | | LABORATORY | [address]d. | | | + + + + + Septic Lactic Acid (10/23/2017 11:50 PM) + + + + + | Component | Value | Ref Range | Performed At | + + + + + | LACTIC ACID | 1.1Comment: Testing | 0.4 - 2.0 mmol/L | [facility] | | | performed at [facility];[address] | | | | | [address];[place] | | | | | [address] | | | + + + + + + + + + + | Performing | Address | City/State/Zipcode | Phone Number | | Organization | | | | + + + + + | [facility] | [address] | [place] [address] | | + + + + + Troponin I (10/23/2017 10:12 PM) + + + + + | Component | Value | Ref Range | Performed At | + + + + + | TROPONIN I | 1.76 ()Comment: 0.00 | 0.00 - 0.10 ng/mL | [facility] | | | to 0.10 CONSISTENT [...] | | | | CRITERIA FOR ACUTE [place] | | | | | CALLED TO KIMBERLEE Rodríguez ON | | | | | 8RP AT 2255 BY CD, READ | | | | | BACKTesting performed at | | | | | [facility];[address] | | | | | [facility];[place] [address] | | | + + + + + + + | Specimen | + + | Blood | + + + + + + + | Performing | Address | City/State/Zipcode | Phone Number | | Organization | | | | + + + + + | [facility] | [address] | [place] [address] | | + + + + + [...] | | | | | dose on [facility] 10/24/17 at 1030, | | | [...] | | | | | Other, Starting [facility] 10/24/17 at | | | | [...] | | | | First dose on [facility] 10/24/17 at 0000 | | | [...] | | | | First dose on [facility] 10/24/17 at 0630 | | | [...] | | | | Pain (7-10), Starting [facility] 10/24/17 | | | | | [...] | | | | | dose on [facility] 10/24/17 at 0000 | | | [...] PDT | | | | | Starting [facility] 10/24/17 at 1912 | | | [...]
--- OUTSIDE RECORDS SUMMARY | ~2017-11-13 | XMS | Encounter Summary ---
Demographics + + + | Address | [address] | | | [place] [address] | + + + | Home Phone | | + + + | Preferred Language | Unknown | + + + | Marital Status | | + + + | Alevism Affiliation | 1028 | + + + | Race | Unknown | + + + | Ethnic Group | Unknown | + + + Author + + + | Author | [facility] | + + + | Organization | [facility] | + + + | Address | Unknown | + + + | Phone | Unavailable | + + + Support + + + + + | Name | Relationship | Address | Phone | + + + + + | Blossom Rose | ECON | [address] | | | | | [place] | | | | | [address] | | + + + + + | Message,Detailed | ECON | Unknown | | + + + + + Care Team Providers + +------+ + | Care Generalist Name | Role | Phone | + +------+ + | Nelson Laird MD | PCP | | + +------+ + Encounter Details +--------+ + + + + | Date | Type | Department | Care Team | Description | +--------+ + + + + | 10/23/ | Hospital | [facility] | See, Medical | Pain | | 2018 | Encounter | [facility] | Record | | | | | RADIOLOGY [address] | | | | | | [address] [facility] [place] [facility] | | | | | | [place] [address] | | | | | | [phone] | | | +--------+ + + + [...] by | | | | | | [id number] | mouth daily. | | | | [...] Dr | | | | | | [place] [address] | | | | | | [phone] | | | | | | | | +--------+ + + + + | 12/04/ | Office | Cardiology | Cristian Mccoy, | | | 2017 | Visit | | MD [address] | | | | | | [address] [place], | | | | | | [place] [address] | | | | | | [phone] | | | | | | | | +--------+ + + + + | 01/08/ | Office | Cardiology | Cristian Mccoy, | | | 2017 | Visit | | MD [address] | | | | | | [address] [place], | | | | | | [place] [address] | | | | | | [phone] | | | | | | | [...] [place] | | | | | | [address] | | | | | | | [...] | + + + + + | [facility] | [address] | [place] [address] | | + + + + + in this encounter Visit Diagnoses + + | Diagnosis | + + | Pain | + + | Generalized pain | + +"
--- OUTSIDE RECORDS SUMMARY | ~2017-11-13 | XMS | Encounter Summary ---
Demographics + + + | Address | [address] | | | [place] [address] | + + + | Home Phone | | + + + | Preferred Language | Unknown | + + + | Marital Status | | + + + | Jainism Affiliation | 1028 | + + + | Race | Unknown | + + + | Ethnic Group | Unknown | + + + Author + + + | Author | [facility] | + + + | Organization | [facility] | + + + | Address | Unknown | + + + | Phone | Unavailable | + + + Support + + + + + | Name | Relationship | Address | Phone | + + + + + | Blossom Rose | ECON | [address] | | | | | [place] | | | | | [address] | | + + + + + | Message,Detailed | ECON | Unknown | | + + + + + Care Team Providers + +------+ + | Care Felting Machine Operator Name | Role | Phone [...] + + | 10/16/ | Ancillary | [facility] | See, Medical | Pain | | 2018 | [facility] | [facility] | Record | | | | | Nuclear Medicine | | | | | | [address] [facility] | | | | | | [place] [address] | | | | | | [phone] | | | +--------+ + + [...] Dr | | | | | | [place] [address] | | | | | | [phone] | | | | | | | | +--------+ + + + + | 12/04/ | Office | Cardiology | Cristian Mccoy, | | | 2017 | Visit | | MD [address] | | | | | | Dr [address], | | | | | | [place] [address] | | | | | | [phone] | | | | | | | | +--------+ + + + + | 01/08/ | Office | Cardiology | Paul Mccoyvirgilio, | | | 2017 | Visit | | MD [address] | | | | | | [address] [place], | | | | | | [place] [address] | | | | | | [phone] | | | | | | | [...] [place] | | | | | | [address] | | | | | | | [...] | [address] | [place] [address] | | + + + + + in this encounter Visit Diagnoses + + | Diagnosis | + + | Pain | + + | Generalized pain | + +"
--- OUTSIDE RECORDS SUMMARY | ~2017-11-13 | XMS | Encounter Summary ---
Demographics + + + | Address | [address] | | | [place] [address] | + + + | Home Phone | | + + + | Preferred Language | Unknown | + + + | Marital Status | | + + + | Adventist Affiliation | 1028 | + + + | Race | Unknown | + + + | Ethnic Group | Unknown | + + + Author + + + | Author | [facility] | + + + | Organization | [facility] | + + + | Address | Unknown | + + + | Phone | Unavailable | + + + Support + + + + + | Name | Relationship | Address | Phone | + + + + + | Blossom Rose | ECON | [address] | | | | | [place] | | | | | [address] | | + + + + + | Message,Detailed | ECON | Unknown | | + + + + + Care Team Providers + +------+ + | Care Farm Crew Leader Name | Role | Phone | + [...] | | | | | | | [address] | | | | | | | Phone: | | | | | | | [phone] | | | | | | | Fax: | | | | | | | [phone] | | + + + + + [...] | | | | cardiovascul | | [address] Phone: | | | | | ar disease) | | [phone] | | | | | Essential | [...] + + | 10/23/ | Hospital | [facility] | Tameka Duke | Dysphagia, | | 2018 - | Encounter | [facility] | MD Leeroy [address] | unspecified type | | | | Floor [facility] | Blvd [place] | (Primary Dx); | | 10/26/ | | [address] | [address] | Thoracic aortic | | 2018 | | [place] [address] | | aneurysm without | | | | [phone] | Junie Delvalle MD | rupture ([facility]); ASCVD | | | | | [address] | (arteriosclerotic | | | | | [place] [address] | cardiovascular | | | | | [phone] | disease); Chronic | | | | | | atrial fibrillation | | | | | | ([facility]); Essential | | | | [...] from lali jacobo. Patient ID: Pavithra Rose [id number] 72 y.o. 1945 Admit date: 10/23/2017 Discharge [...] radiologist report and is used for image [employer] Ch[employer] only Ct Head Without Contrast Result Date: 10/23/2017 This is a non-reportable procedure without a radiologist report and is used for image [employer] only Ct Chest Without Contrast Result Date: 10/24/2017 HISTORY: 72 years year-old Male, hemoptysis. TECHNIQUE: CT through the chest. Noncontrast e xamination. Automatic dose adjustment to minimize patient exposure. PRIOR EXAMINATION: [place] er chest radiograph. FINDINGS: Vocational Counselor demonstrates cardiomegaly, sternal wires and dense reti [...] radiologist report and is used for image Free[employer] Tag only Cl Coronary Angio With Grafts Result [...] needle, right femoral access was obtained. A 5-Indian sheath was introduced without any difficulty. A 0.035 wire was used and advanced under fluoroscopic gu idance into the ascending aorta. A 5-Indian JL4 catheter was used and advanced over [...] the wire was don e with a 5-Indian multipurpose catheter that selectively engaged the right SVG to RCA graft. Multiple views were obtained. Exchange over the wire was done with 5-Indian AL1 catheter t hat selectively engaged the [...] LA/Ao: 1.22 D-E Excursion: 2.29 cm E-F [place]: 0.09 m/s AV maxP.18 mmHg AV meanP.51 [...] TV A Ed: 0.00 m/s TV Dec [place]: 3.93 m/s2 TV Dec Time: 207.73 ms TV E Ed: 0.56 m/s TV E /A Ratio: 69.55 Material Requirements Planning Manager: ADAM Authenticated by: Cecilia Mccoy Report Date/Time: [...] and GI bleed who we nt to [facility] with productive cough, shortness of breath and hemoptysis seconda ry to aspiration pneumonia and found to have positive troponin around 1 hence he was transf erred to [facility] for further workup and treatment. Hospital course by issues: #1 non-ST elevation ME: Status post cardiac cath which showed triple-vessel disease and rec ommend medical management only. Patient started on Plavix, atorvastatin, patient allergic t o beta barbara has not initiated and patient currently asymptomatic. 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 Nelson Laird MD [address] [facility], [address] [place] [address] Nelson Laird MD [address] [facility], [address] [place] [address] In 1 week Cecilia Mccoy MD [address] [place] [address] In 1 week Signed: JUNIE DELVALLE 10/26/2017 12:21 PMin this encounter Discharge Instructions The following attachments cannot be sent through Care Everywhere.Amoxicillin; Clavulanic Ac id tablets (Greenlandic)Clopidogrel tablets (Greenlandic)in this encounter Medications at Time of Discharge [...] by | | | | | | [id number] | mouth daily. | | | | [...] may be different fro m the original. [facility] Service: Cardiology Progress Note Name of Wood Patternmaker Apprentice: Cecilia Mccoy MD I have seen the [...] not amenable to PCI. 2. Non-ST elevation ME. 3. Dysphagia. 4. Hemoptysis minimal, improved. 5. Chronic atrial fibrillation. On rate control strategy and anticoagulation. CHADSVASc sco re of 4. 6. AAA. 7. Coronary artery disease S/[place] [address]. 8. RBBB. 9. Hypertension blood pressures controlled. [...] Hospitalist Progress Note Pavithra Rose 72 y.o. [id number] 8108/8108-1 male [facility] Day: LOS: 2 days Patient [...] cardiac stress test study who went to [facility] with ongoing productive cough, shortness of breath and hemoptysis, where he was found to hav e positive troponin and chest x-ray showed pneumonia and patient was [facility] further workup and treatment. The [...] Anaphylaxis Diltiazem Edema Gabapentin Other (See Comments) NURSING AIDE Imipramine Other (See Comments) Urinary retention Metoprolol [...] Procedure Component Value Units Date/Time Iron panel [[id number]] Collected: 10/25/171442 Specimen: Blood Updated: 10/25/171449 Vitamin B12 [[id number]] Collected: 10/25/171442 Specimen: Blood Updated: 08/10/18 1450 Ferritin [[id number]] Collected: 10/25/17 1443 Specimen: Blood Updated: 10/25/17 1450 Folate [[id number]] Collected: 10/25/17 1443 Specimen: Blood Updated: 10/25/17 1450 CBC W/Auto Diff (Reflex to Manual) [[id number]] (Abnormal) Collected: 10/25/17 1000 Specimen: Blood Updated: [...] 0.04 K/uL MORPHOLOGY 2+ Comprehensive metabolic panel [[id number]] (Abnormal) Collected: 10/25/17 1000 Specimen: Blood Updated: [...] U/L EGFR 59 (L) mL/min/1.73m2 Sputum culture [[id number]] Collected: 10/24/17 0400 Specimen: Sputum from Sputum [...] WILL BE HELD 48 HOURS. Troponin I [[id number]] (Abnormal) Collected: 10/24/17550 Specimen: Blood Updated: 10/24/17657 TROPONIN I 1.28 (HH) ng/mL CBC W/Auto Diff (Reflex to Manual) [[id number]] (Abnormal) Collected: 10/24/17156 Specimen: Blood Updated: 10/24/17436 [...] K/uL Platelet Estimate ADEQUATE MORPHOLOGY 2+ Magnesium [[id number]] Collected: 10/24/17156 Specimen: Blood Updated: 10/24/17433 MAGNESIUM 1.8 mg/dL Phosphorus [[id number]] Collected: 10/24/17156 Specimen: Blood Updated: 10/24/17433 PHOSPHORUS 3.4 mg/dL TSH [[id number]] Collected: 10/24/17156 Specimen: Blood Updated: 10/24/17433 TSH 4.150 uIU/mL Basic metabolic panel [[id number]] (Abnormal) Collected: 10/24/17156 Specimen: Blood Updated: 10/24/17433 SODIUM 138 mmol/L POTASSIUM 4.3 mmol/L CHLORIDE 104 mmol/L CO2 24 mmol/L ANION GAP AGAP 14 mmol/L GLUCOSE 75 mg/dL BUN 14 mg/dL CREATININE 1.3 mg/dL BUN/CREAT 11 CALCIUM 8.6 mg/dL EGFR 54 (L) mL/min/1.73m2 Lipid panel [[id number]] (Abnormal) Collected: 10/24/17156 Specimen: Blood Updated: 10/24/17 0434 CHOLESTEROL 103 mg/dL Triglycerides 116 mg/dL HDL CHOL 24 (L) mg/dL LDL CALC 56 mg/dL Troponin I [[id number]] (Abnormal) Collected: 10/24/17156 Specimen: Blood Updated: 10/24/17 0251 TROPONIN I 1.72 (HH) ng/mL Protime-INR [[id number]] Collected: 10/24/17156 Specimen: Blood Updated: 10/24/17 022 INR 1.2 Septic Lactic Acid [[id number]] Collected: 10/23/172349 Updated: 10/24/17 0023 LACTIC ACID 1.1 mmol/L Troponin I [[id number]] (Abnormal) Collected: 10/23/172211 Specimen: Blood Updated: 10/23/172253 [...] radiologist report and is used for image [employer] only Ct Head Without Contrast Result Date: 10/23/2017 This is a non-reportable procedure without a radiologist report and is used for image [employer] only Ct Chest Without Contrast Result Date: 10/24/2017 HISTORY: 72 years year-old Male, hemoptysis. TECHNIQUE: CT through the chest. Noncontrast e xamination. Automatic dose adjustment to minimize patient exposure. PRIOR EXAMINATION: Earli er chest radiograph. FINDINGS: Vocational Counselor demonstrates cardiomegaly, sternal wires and dense reti [...] radiologist report and is used for image Freeze Tag only Cl Coronary Angio With Grafts Result [...] needle, right femoral access was obtained. A 5-Indian sheath was introduced without any difficulty. A 0.035 wire was used and advanced under fluoroscopic gu idance into the ascending aorta. A 5-Indian JL4 catheter was used and advanced over [...] the wire was don e with a 5-Indian multipurpose catheter that selectively engaged the right SVG to RCA graft. Multiple views were obtained. Exchange over the wire was done with 5-Indian AL1 catheter t hat selectively engaged the [...] LA/Ao: 1.22 D-E Excursion: 2.29 cm E-F [place]: 0.09 m/s AV maxP.18 mmHg AV meanP.51 [...] TV A Ed: 0.00 m/s TV Dec [place]: 3.93 m/s2 TV Dec Time: 207.73 ms TV E Ed: 0.56 m/s TV E /A Ratio: 69.55 Material Requirements Planning Manager: ADAM Authenticated by: Cecilia Younggreat barrington Report Date/Time: 018 13:7:33 1. The left [...] the patient is allerg ic to BETA BARBRAA hence we will avoid it and avoid [...] minutes. JUNIE DELVALLE MD 10/25/2017 Ariadne El [facility] - 10/25/2017 2:22 PM PDTBEDSIDE SWALLOW [employer] Last Visit [employer] Received On: 10/25/17 Requires [employer] Follow Up: Yes Recommendations Liquids Consistency Recommendations: [...] are progressing unless otherwise indicated. Dysphagia Goals Longterm Goals: Safe/efficient oral intake Pt will have [...] evidence of learning [] Refused Ariadne El [employer] Cecilia Mccoy MD - 10/25/2017 5:46 AM PDTFormatting of th is note may be different from the original. [facility] Service: Cardiology Progress Note Name of Wood Patternmaker Apprentice: Cecilia Mccoy MD I have seen the [...] puff, 2 puff, Inhalation, 2 times daily, Tamkea Duke MD, 2 puff at 10/24/17 2253 [...] not amenable to PCI. 2. Non-ST elevation ME. 3. Dysphagia. 4. Hemoptysis minimal, improved. 5. Chronic atrial fibrillation. On rate control strategy and anticoagulation. CHADSVASc sco re of 4. 6. AAA. 7. Coronary artery disease [place] 6[address]. 8. RBBB. 9. Hypertension blood pressures controlled. [...] Code Mershed AlSamara, MD 10/25/2017 Luca Toussaint, [facility] - 10/24/2017 8:30 PM PDTNote ccl 49ml/min meds reviewed pharmacy will follow [facility] 2030AlsCecilia wiggins MD - 10/24/2017 6:11 PM PDTFranciscan Health [facility]: Cardiology Pre-Operative History & Physical Interval [...] more than one vascular access site, , ME, CVA, bleedin g (including the need for [...] this note may be different from t kuldepe original. Hospitalist Progress Note Pavithra Rose 72 y.o. [id number] 8108/8108-1 male [facility] Day: LOS: 1 day Patient [...] cardiac stress test study who went to [facility] with ongoing productive cough, shortness of breath and hemoptysis, where he was found to hav e positive troponin and chest x-ray showed pneumonia and patient was transferred to [facility] for further workup and treatment. The [...] Anaphylaxis Diltiazem Edema Gabapentin Other (See Comments) NURSING AIDE Imipramine Other (See Comments) Urinary retention Metoprolol [...] Procedure Component Value Units Date/Time Sputum culture [[id number]] Collected: 10/24/17 0400 Specimen: Sputum from Sputum Updated: 10/24/17 0705 Troponin I [[id number]] (Abnormal) Collected: 10/24/17 0551 Specimen: Blood Updated: 10/24/17 0658 TROPONIN I 1.28 (HH) ng/mL CBC W/Auto Diff (Reflex to Manual) [[id number]] (Abnormal) Collected: 10/24/17156 Specimen: Blood Updated: 10/24/17436 [...] K/uL Platelet Estimate ADEQUATE MORPHOLOGY 2+ Magnesium [[id number]] Collected: 10/24/17156 Specimen: Blood Updated: 10/24/17433 MAGNESIUM 1.8 mg/dL Phosphorus [[id number]] Collected: 10/24/17156 Specimen: Blood Updated: 10/24/17433 PHOSPHORUS 3.4 mg/dL TSH [[id number]] Collected: 10/24/17156 Specimen: Blood Updated: 10/24/17433 TSH 4.150 uIU/mL Basic metabolic panel [[id number]] (Abnormal) Collected: 10/24/17156 Specimen: Blood Updated: 10/24/17433 SODIUM 138 mmol/L POTASSIUM 4.3 mmol/L CHLORIDE 104 mmol/L CO2 24 mmol/L ANION GAP AGAP 14 mmol/L GLUCOSE 75 mg/dL BUN 14 mg/dL CREATININE 1.3 mg/dL BUN/CREAT 11 CALCIUM 8.6 mg/dL EGFR 54 (L) mL/min/1.73m2 Lipid panel [[id number]] (Abnormal) Collected: 10/24/17156 Specimen: Blood Updated: 10/24/17433 CHOLESTEROL 103 mg/dL Triglycerides 116 mg/dL HDL CHOL 24 (L) mg/dL LDL CALC 56 mg/dL Troponin I [[id number]] (Abnormal) Collected: 10/24/17156 Specimen: Blood Updated: 10/24/17 025 TROPONIN I 1.72 (HH) ng/mL Protime-INR [[id number]] Collected: 08/09/18 0157 Specimen: Blood Updated: 10/24/17 0221 INR 1.2 Septic Lactic Acid [[id number]] Collected: 10/23/17 2350 Updated: 10/24/17 0023 LACTIC ACID 1.1 mmol/L Troponin I [[id number]] (Abnormal) Collected: 10/23/172 Specimen: Blood Updated: 10/23/17 [...] radiologist report and is used for image [employer] only Ct Head Without Contrast Result Date: 10/23/2017 This is a non-reportable procedure without a radiologist report and is used for image [employer] Ch[employer] only Ct Chest Without Contrast Result Date: 10/24/2017 HISTORY: 72 years year-old Male, hemoptysis. TECHNIQUE: CT through the chest. Noncontrast e xamination. Automatic dose adjustment to minimize patient exposure. PRIOR EXAMINATION: Earli er chest radiograph. FINDINGS: Vocational Counselor demonstrates cardiomegaly, sternal wires and dense reti [...] LA/Ao: 1.22 D-E Excursion: 2.29 cm E-F [place]: 0.09 m/s AV maxP.18 mmHg AV meanP.51 [...] TV A Ed: 0.00 m/s TV Dec [place]: 3.93 m/s2 TV Dec Time: 207.73 ms TV E Ed: 0.56 m/s TV E /A Ratio: 69.55 Material Requirements Planning Manager: ADAM Authenticated by: Cecilia Mccoy Report Date/Time: [...] worse and case discussed with Dr. Mccoy, principal consulting engineer, who is in agreement and will ke [...] hasn't eaten in two days. 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 Type of Food / Meals NPO Nutrition-Focused Physical Findings Overall Appearance Reports he appears much thinner and clothes have not been fitting him as well. Body Language Pt very pleasant. Extremities, Muscles and Bones Bruising Digestive System (Mouth to Rectum) [employer] following. Anthropometrics Weight change Admit wt: 71.8 [...] Estimated Energy Needs Total Energy Estimated Needs 1983-0477 kcal/day Method for Estimating Needs 25-30 kcal/kg at 71.8 kg admit wt Estimated Protein Needs Total Protein Estimated Needs 86-108 g/day Method for Estimating Needs 1.2-1.5 g/kg Recommendations Recommended energy needs ADAT to cardiac with textures/consistencies per [employer]. Upon diet adv ancement, encourage increased energy [...] Moderate Lucy Doshi, RD 10/24/2017 Helen Soto [facility] - 10/23/2017 10:07 PM PDTFormatting of [...] | | | | | [place] [address] | | | | | | [phone] | | | | | | | | +--------+ + + + + | 12/04/ | Office | Cardiology | Cecilia Mccoy, | | | 2017 | Visit | | MD Alayna Rajan | | | | | | Dr [address], | | | | | | [place] [address] | | | | | | [phone] | | | | | | | | +--------+ + + + + | 01/08/ | Office | Cardiology | Cecilia Mccoy, | | | 2017 | Visit | | MD [address] | | | | | | [address], | | | | | | [place] [address] | | | | | | [phone] | | | | | | | [...] [place] | | | | | | [address] | | | | | | | [...] | + + + + + | [facility] | [address] | [place] [address] | | + + + + + [...] 8.5 | 8.5 - 10.5 mg/dL | [facility] | | | | | LABORATORY | + + + + + | TOTAL PROTEIN | 5.5 (L) | 6.3 - 8.2 g/dL | [facility] | | | | | LABORATORY [...] the | | | | | MDRD IDMD traceable | | | | | equation.Testing | | | | | performed at [facility], [address] | | | | | [facility], | | | | | [place] [address] | | | + + + + + + + | Specimen | + + | Blood | + + + + + + + | Performing | Address | City/State/Zipcode | Phone Number | | Organization | | | | + + + + + | [facility] | [address] | [place] [address] | [phone] | | LABORATORY | [address] | | [...] | | | | | performed at [facility], [address] | | | | | [facility], | | | | | [place] [address] | | | | |MICRO | | | | |NORMAL PLT MORPH | | | | |Testing performed at [facility], [address] [place] [address] | | | | | | | | + + + + + + + | Specimen | + + | Blood | + + + + + + + | Performing | Address | City/State/Zipcode | Phone Number | | Organization | | | | + + + + + | [facility] | [address] | [place] [address] | [phone] | | LABORATORY | [address]vd[address] | | | + + + + + Folate (10/25/2017 2:43 PM) + + + + + | Component | Value | Ref Range | Performed At | + + + + + | FOLATE | 18.6Comment: Testing | >5.4 ng/mL | [facility] | | | performed at [facility], [address] | | LABORATORY | | | [facility], | | | | | [place] [address] | | | + + + + + + + | Specimen | + + | Blood | + + + + + + + | Performing | Address | City/State/Zipcode | Phone Number | | Organization | | | | + + + + + | [facility] | [address] | [place] [address] | [phone] | | LABORATORY | [address] | | | + + + + + Ferritin (10/25/2017 2:43 PM) + + + + + | Component | Value | Ref Range | Performed At | + + + + + | FERRITIN | 156Comment: Testing | 11 - 450 ng/mL | [facility] | | | performed at [facility], [address] | | LABORATORY | | | [facility], | | | | | [place] [address] | | | + + + + + + + | Specimen | + + | Blood | + + + + + + + | Performing | Address | City/State/Zipcode | Phone Number | | Organization | | | | + + + + + | [facility] | [address] | [place] [address] | [phone] | | LABORATORY | [address] | | | + + + + + Vitamin B12 (10/25/2017 2:43 PM) + + + + + | Component | Value | Ref Range | Performed At | + + + + + | VITAMIN B12 | 292Comment: Testing | 254 - 1,320 pg/mL | [facility] | | | performed at [facility], [address] | | LABORATORY | | | [facility], | | | | | [place] [address] | | | + + + + + + + | Specimen | + + | Blood | + + + + + + + | Performing | Address | City/State/Zipcode | Phone Number | | Organization | | | | + + + + + | [facility] | [address] | [place] [address] | [phone] | | LABORATORY | [address] | | [...] | [facility] | | | performed at [facility], [address] | | LABORATORY | | | [address], | | | | | [place] [address] | | | + + + + + + + | Specimen | + + | Blood | + + + + + + + | Performing | Address | City/State/Zipcode | Phone Number | | Organization | | | | + + + + + | [facility] | [address] | [place] [address] | [phone] | | LABORATORY | [address] | | [...] | | | | | performed at [facility], [address] | | | | | [facility], | | | | | [place] [address] | | | + + + + + + + | Specimen | + + | Blood | + + + + + + + | Performing | Address | City/State/Zipcode | Phone Number | | Organization | | | | + + + + + | [facility] | [address] | [place] [address] | [phone] | | LABORATORY | [address] | | [...] | | | | | performed at [facility], [address] | | | | | [facility], | | | | | [place] [address] | | | | |ANISO | | | | |NORMAL PLT MORPH | | | | |Testing performed at [facility], [facility] [place] [address] | | | | | | | | + + + + + + + | Specimen | + + | Blood | + + + + + + + | Performing | Address | City/State/Zipcode | Phone Number | | Organization | | | | + + + + + | [facility] | [address] | [place] [address] | [phone] | | LABORATORY | [address] | | [...] + + + + + | [facility] | [address] | [place] [address] | | + + + + + CL coronary angio with grafts (10/24/2017 8:09 PM) + + + | Narrative | Performed At | + + + | | [facility] | | | RADIOLOGY | | [...] needle, right femoral access was obtained. A 5-Indian | | | sheath was introduced without any difficulty. A 0.035 wire was | | | used and advanced under fluoroscopic guidance into the ascending | | | aorta. A 5-Indian JL4 catheter was used and advanced over [...] over the wire was done with a 5-Indian | | | multipurpose catheter that selectively engaged the right SVG to RCA | | | graft. Multiple views were obtained. Exchange over the wire was | | | done with 5-Indian AL1 catheter that selectively engaged the SVG [...] needle, right femoral access was obtained. A 5-Indian sheath | | was introduced without any difficulty. A 0.035 wire was used and advanced | | under fluoroscopic guidance into the ascending aorta. A 5-Indian JL4 | | catheter was used and [...] over the wire was done with a 5-Indian | | multipurpose catheter that selectively engaged the right SVG to RCA graft. | | Multiple views were obtained. Exchange over the wire was done with | | 5-Indian AL1 catheter that selectively engaged the SVG [...] [facility] | [address] | [place] [address] | | + + + + + [...] | + + + + + | [facility] | [address] | [place] [address] | | + + + + + [...] Earlier chest | | | radiograph. FINDINGS: Vocational Counselor demonstrates cardiomegaly, sternal | | | wires [...] patient exposure.PRIOR EXAMINATION: Earlier chest | | radiograph.FINDINGS:Vocational Counselor demonstrates cardiomegaly, sternal wires and dense reticular [...] [facility] | [address] | [place] [address] | | + + + + + [...] [facility] | [address] | [facility] [address] | | + + + + + [...] PAVITHRA ROSE Date of : 1945 | [facility] | | Performing Physician: Cecilia Mccoy | [...] LA/Ao: 1.22 D-E Excursion: 2.29 cm E-F [place]: 0.09 | | | m/s AV maxP.18 [...] 0.00 | | | m/s TV Dec [place]: 3.93 m/s2 TV Dec Time: 207.73 ms TV E | | | Ed: 0.56 m/s TV E/A Ratio: 69.55 Material Requirements Planning Manager: CM | | | Authenticated by: Cecilia [facility] Report Date/Time: 10-24-2017 13:7:33 | | | | | + + + + + | Procedure Note | + + | Diogo Harris Results In - 10/24/2017 1:10 PM PDT Patient Name: Raegan ROSE of : | | 1945ccession: [id number] Physician: Cecilia | | Alsamara INDICATIONS------ | [...] mlLAESV Index (A-L): 41.48 ml/m2LAAs A2C: 17.05 [id number] A-L A2C: 48.56 | | mlLALs A2C: 5.08 cmLAAs A4C: 26.95 [id number] A-L A4C: 95.07 mlLALs A4C: 6.48 cmAo | | Diam: 4.03 cmAV Cusp: 1.91 cmLA Diam: 4.92 cmLA/Ao: 1.22 D-E Excursion: 2.29 | | cmE-F [place]: 0.09 m/Leigha maxP.18 mmHgAV meanP.51 mmHgAV Vmax: 1.59 m/Leigha | | Vmean: 1.23 m/Leigha VTI: 28.06 cmAVA Vmax: 3.26 cm2AVA (VTI): 3.35 [id number] Vmax: | | 0.00 cm2/m2AVAI (VTI): 0.00 [...] 3.04 m/sTV A Ed: 0.00 m/sTV Dec [place]: 3.93 m/s2TV | | Dec Time: 207.73 msTV E Ed: 0.56 m/sTV E/A Ratio: 69.55 Material Requirements Planning Manager: | | CMAuthenticated by: Cecilia [facility] CenterReport Date/Time: 10-24-2017 13:7:33IMPRESSION:1. The | | [...] | |D-E Excursion: 2.29 cm | |E-F [place]: 0.09 m/s | |AV maxP.18 mmHg | [...] A Ed: 0.00 m/s | |TV Dec [place]: 3.93 m/s2 | |TV Dec Time: 207.73 ms | |TV E De: 0.56 m/s | |TV E/A Ratio: 69.55 | | | |Material Requirements Planning Manager: CM | |Authenticated by: Cecilia Mccoy | [...] | + + + + + | [facility] | [address] | [place] [address] | | + + + + + [...] QTC Calculation | 451 | ms | [facility] | | (Bezet) | | | | + + + + + | Calculated R [place] | -81 | degrees | [facility] | + + + + + | Calculated T [place] | 5 | degrees | [facility] [...] | + + + + + | [facility] | [address] | [place] [address] | | + + + + + Troponin I (10/24/2017 5:51 AM) + + + + + | Component | Value | Ref Range | Performed At | + + + + + | TROPONIN I | 1.28 ()Comment: 0.00 | 0.00 - 0.10 ng/mL | [facility] | | | to 0.10 CONSISTENT [...] | | | | CRITERIA FOR ACUTE ME | | | | | CALLED NURSING UNITREAD | | | | | BACK RESULTS | | | | | VERIFIEDFABRICIO Lynch IN 8RP | | | | | AT 0658 BY TDTesting | | | | | performed at [facility];[address] | | | | | [address];[place], [place] | | | | | [address] | | | + + + + + + + | Specimen | + + | Blood | + + + + + + + | Performing | Address | City/State/Zipcode | Phone Number | | Organization | | | | + + + + + | [facility] | [address] | [place] [address] | | + + + + + [...] + + + | [facility] | [address] | [place] [address] | [phone] | | LABORATORY | [address]vd[address] | | [...] | | | | performed at [facility];[address] | | | | | [address];[place] | | | | | [address] | | | + + + + + + + | Specimen | + + | Blood | + + + + + + + | Performing | Address | City/State/Zipcode | Phone Number | | Organization | | | | + + + + + | [facility] | [address] | [place] [address] | | + + + + + Troponin I (10/24/2017 1:57 AM) + + + + + | Component | Value | Ref Range | Performed At | + + + + + | TROPONIN I | 1.72 ()Comment: 0.00 | 0.00 - 0.10 ng/mL | [facility] | | | to 0.10 CONSISTENT [...] | | | | CRITERIA FOR ACUTE ME | | | | | CALLED NURSING UNITREAD | | | | | BACK RESULTS | | | | | REENA Rodríguez IN 8RP | | | | | AT 0250Testing performed | | | | | at [facility];[address] | | | | | [facility];[place] [address] | | | + + + + + + + | Specimen | + + | Blood | + + + + + + + | Performing | Address | City/State/Zipcode | Phone Number | | Organization | | | | + + + + + | [facility] | [address] | [facility] [address] | | + + + + + TSH (10/24/2017 1:57 AM) + + + + + | Component | Value | Ref Range | Performed At | + + + + + | TSH | 4.150Comment: Testing | 0.450 - 5.100 uIU/mL | [facility] | | | performed at [facility], [address] | | LABORATORY | | | [address], | | | | | [place] [address] | | | + + + + + + + | Specimen | + + | Blood | + + + + + + + | Performing | Address | City/State/Zipcode | Phone Number | | Organization | | | | + + + + + | [facility] | [address] | [place] [address] | [phone] | | LABORATORY | [address] | | [...] | [facility] | | | performed at [facility], [address] | | LABORATORY | | | [address], | | | | | [place] [address] | | | + + + + + + + | Specimen | + + | Blood | + + + + + + + | Performing | Address | City/State/Zipcode | Phone Number | | Organization | | | | + + + + + | [facility] | [address] | [place] [address] | [phone] | | LABORATORY | [address]vd[address] | | | + + + + + Phosphorus (10/24/2017 1:57 AM) + + + + + | Component | Value | Ref Range | Performed At | + + + + + | PHOSPHORUS | 3.4Comment: Testing | 2.3 - 4.8 mg/dL | [facility] | | | performed at [facility], [address] | | LABORATORY | | | [facility], | | | | | [place] [address] | | | + + + + + + + | Specimen | + + | Blood | + + + + + + + | Performing | Address | City/State/Zipcode | Phone Number | | Organization | | | | + + + + + | [facility] | [address] | [place] [address] | [phone] | | LABORATORY | [address] | | | + + + + + Magnesium (10/24/2017 1:57 AM) + + + + + | Component | Value | Ref Range | Performed At | + + + + + | MAGNESIUM | 1.8Comment: Testing | 1.7 - 2.4 mg/dL | [facility] | | | performed at [facility], [address] | | LABORATORY | | | [address], | | | | | [place] [address] | | | + + + + + + + | Specimen | + + | Blood | + + + + + + + | Performing | Address | City/State/Zipcode | Phone Number | | Organization | | | | + + + + + | [facility] | [address] | [place] [address] | [phone] | | LABORATORY | [address]vd. | | [...] 14 | 5 - 20 mmol/L | [facility] | | | | | LABORATORY | [...] 1.3 | 0.70 - 1.30 mg/dL | [facility] | | | | | LABORATORY | + + + + + | BUN/CREAT | 11 | | [facility] | | | | | LABORATORY | + + + + + | CALCIUM | 8.6 | 8.5 - 10.5 mg/dL | [facility] | | | | | LABORATORY | + + + + + | EGFR | 54 (L)Comment: GFR <60: | >60 mL/min/1.73m2 | [facility] | | | CHRONIC KIDNEY [...] | | | | | performed at [facility], [address] | | | | | [facility], | | | | | [place] [address] | | | + + + + + + + | Specimen | + + | Blood | + + + + + + + | Performing | Address | City/State/Zipcode | Phone Number | | Organization | | | | + + + + + | [facility] | [address] | [place] [address] | [phone] | | LABORATORY | [address] | | [...] [address], | | | | | [place] [address] | | | | |TEARDROP | | | | |NORMAL PLT MORPH | | | | |Testing performed at [facility], [address] [facility], [place], [place] [address] | | | | | | | | + + -----+ + + + + | Specimen | + + | Blood | + + + + + + + | Performing | Address | City/State/Zipcode | Phone Number | | Organization | | | | + + + + + | [facility] | [address] [place] [address] | [place] [address] | [phone] | | LABORATORY | [address] | | | + + + + + Septic Lactic Acid (10/23/2017 11:50 PM) + + + + + | Component | Value | Ref Range | Performed At | + + + + + | LACTIC ACID | 1.1Comment: Testing | 0.4 - 2.0 mmol/L | [facility] | | | performed at [facility];[address] | | | | | [address];[place] | | | | | [address] | | | + + + + + + + + + + | Performing | Address | City/State/Zipcode | Phone Number | | Organization | | | | + + + + + | [facility] | [address] | [place] [address] | | + + + + + Troponin I (10/23/2017 10:12 PM) + + + + + | Component | Value | Ref Range | Performed At | + + + + + | TROPONIN I | 1.76 ()Comment: 0.00 | 0.00 - 0.10 ng/mL | [facility] | | | to 0.10 CONSISTENT [...] | | | | CRITERIA FOR ACUTE ME | | | | | CALLED TO KIMBERLEE Rodríguez ON | | | | | 8RP AT 2255 BY CD, READ | | | | | BACKTesting performed at | | | | | [facility];[address] | | | | | [facility];[place] [address] | | | + + + + + + + | Specimen | + + | Blood | + + + + + + + | Performing | Address | City/State/Zipcode | Phone Number | | Organization | | | | + + + + + | [facility] | [address] | [place] [address] | | + + + + + [...] | | | | | dose on [facility] 10/24/17 at 1030, | | | [...] | | | | | Other, Starting [facility] 10/24/17 at | | | | [...] | | | | First dose on [facility] 10/24/17 at 0000 | | | [...] | | | | First dose on [facility] 10/24/17 at 0630 | | | [...] | | | | Pain (7-10), Starting [facility] 10/24/17 | | | | | [...] | | | | | dose on [facility] 10/24/17 at 0000 | | | [...] PDT | | | | | Starting [facility] 10/24/17 at 1912 | | | [...]
--- OUTSIDE RECORDS SUMMARY | ~2017-11-13 | XMS | Clinical Summary ---
Demographics + + + | Address | [address] | | | [place] [address] | + + + | Home Phone | | + + + | Preferred Language | Unknown | + + + | Marital Status | | + + + | Jehovah'S Witness Affiliation | Unknown | + + + | Race | Unknown | + + + | Ethnic Group | Unknown | + + + Author + + + | Author | [facility] | | | and [place] | + + + | Organization | [facility] | | | and [place] [...] [place] | | | | | [address] | | + + + + + Care Team Providers + +------+ + | Care Purse Seiner Name | Role | Phone | + [...] +--------+ +---------+ | MEDICARE | MEDICA | [id number] | Medica | [phone] | | | RE | | re | [phone] | | | | PART A | | | | | | | AND B | | | | | + +--------+ +--------+ +---------+ | AARP | AARP | [id number] | Indemn | [phone] | | [...] | irish | | | [phone] | + +--------+ +--------+ + +
[~2017-11-13 05:32] MED LIST changes: +ALENDRONATE SOD70 MG PO; +PLAVIX75 MG PO; +SYMBICORT 16010.2 GM INH
[2017-11-13] MEDS ORDERED: XARELTO20 MG PO ×2 (05:44)
[2017-11-13] MEDS ORDERED: IPRAT-ALBUT 0.5-3 ML INH (05:48)
== END 2017-11-13 07:04 | disposition home or self-care (01) ==
LOC: ED 05:32
PROC: 0W3Q7ZZ Control Bleeding in Respiratory Tract, Via Natural or Artificial Opening (ICD-10-PCS; principal; 2017-11-13)
DX: R04.0 Epistaxis (principal); J44.9 Chronic obstructive pulmonary disease, unspecified; I48.91 Unspecified atrial fibrillation; K21.9 Gastro-esophageal reflux disease without esophagitis; I25.2 Old myocardial infarction; E03.9 Hypothyroidism, unspecified; N18.9 Chronic kidney disease, unspecified; Z88.8 Allergy status to other drugs, medicaments and biological substances; Z79.899 Other long term (current) drug therapy; Z79.52 Long term (current) use of systemic steroids
CPT/HCPCS: 30903; 99283

== ENCOUNTER 2018-03-20 20:08 | Emergency (ER) | payer MEDICARE ==
[~2018-03-20] VITALS: Ht 172.7 cm; Wt 70.3 kg
[~2018-03-20 20:08] MED LIST changes: +IPRAT-ALBUT 0.5-3 ML INH
--- OUTSIDE RECORDS SUMMARY | 2018-03-20 20:12 | XMS ---
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 Care History Medical/Surgical 09/17/2017 [facility] - Patient is currently established with [facility]. If patient is seen in the ED during business hours. Please contact CHWs at [facility] at Ext [phone]. Care Recommendation: This patient has had 5 or more Emergency Department visits in the last 12 months.\T\nbsp; Patient requires education on the scope and purpose of the ED as an acute care provider not a Primary Care Provider and should not be utilized for chronic conditions.\T\nbsp; If patient returns to ED please contact Community Health Worker Deidre at [phone]. These are guidelines and the provider should exercise clinical judgment when providing care. E.D. VISIT COUNT (12 MO.) 8 ROCHELLE Ull[facility] TOTAL 8 NOTE: Visits indicate total known visits. 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 block assembler (current) drug therapy - Major depressive disorder, single episode, unspecified - Age-related osteoporosis without current pathological fracture - FDC (current) use of anticoagulants - Epistaxis - Radiographic dye allergy status 11/13/2017 05:32 [facility] [place] TYPE: Emergency COMPLAINT: - NOSE BLEED,NON INJURY DIAGNOSES: - Chronic obstructive pulmonary disease, unspecified - Other mcfp (current) drug therapy - Hypothyroidism, unspecified - Allergy status to other drugs, medicaments and biological substances status - Epistaxis - Unspecified atrial fibrillation - Gastro-esophageal reflux disease without esophagitis - Old myocardial infarction - Chronic kidney disease, unspecified - long term (current) use of systemic steroids 10/28/2017 22:59 [facility] [place] TYPE: Emergency COMPLAINT: - NOSE BLEED DIAGNOSES: - Unspecified atrial fibrillation - Old myocardial infarction - FDC (current) use of antibiotics - Chronic kidney disease, unspecified - Major depressive disorder, single episode, unspecified - Allergy status to other drugs, medicaments and biological substances status - Anemia, unspecified - Adverse effect of anticoagulants, initial encounter - Chronic obstructive pulmonary disease, unspecified - Hypothyroidism, unspecified - Other mcfp (current) drug therapy - Gastro-esophageal reflux disease without esophagitis - Personal history of nicotine dependence - Epistaxis 10/23/2017 12:58 [facility] [place] TYPE: Emergency COMPLAINT: - HEPATIC ENCEPHALOPATHY DIAGNOSES: - Unspecified atrial fibrillation - Gastro-esophageal reflux disease without esophagitis - Hypothyroidism, unspecified - Chronic kidney disease, unspecified - Hemoptysis - Other mcfp (current) drug therapy - Chronic obstructive pulmonary disease, unspecified - Personal history of nicotine dependence - Major depressive disorder, single episode, unspecified - Old myocardial infarction - Chronic sinusitis, unspecified - Pneumonia, unspecified organism - Acute ischemic heart disease, unspecified - long term (current) use of systemic steroids - Headache 09/16/2017 13:58 [facility] [place] TYPE: Emergency COMPLAINT: - REMOVAL OF STITCHES DIAGNOSES: - Chronic obstructive pulmonary disease, unspecified - Chronic kidney disease, unspecified - Gastro-esophageal reflux disease without esophagitis - Personal history of pneumonia (recurrent) - Other terminal block assembler (current) drug therapy - Bitten by dog, subsequent encounter - Major depressive disorder, single episode, unspecified - Allergy status to other drugs, medicaments and biological substances status - Open bite of right forearm, subsequent encounter - FDC (current) use of antibiotics - Personal history of nicotine dependence 09/09/2017 10:41 [facility] [place] TYPE: Emergency COMPLAINT: - WOUND CHECK DIAGNOSES: - Personal history of nicotine dependence - Other terminal block assembler (current) drug therapy - Allergy status to other drugs, medicaments and biological substances status - Chronic obstructive pulmonary disease, unspecified - Bitten by dog, subsequent encounter - Open bite of right forearm, subsequent encounter 09/07/2017 16:24 [facility] [place] TYPE: Emergency COMPLAINT: - DOG BITE DIAGNOSES: - Personal history of nicotine dependence - Open bite of right forearm, initial encounter - Allergy status to other drugs, medicaments and biological substances status - Major depressive disorder, single episode, unspecified - Other mcfp (current) drug therapy - Hypothyroidism, unspecified - Bitten by dog, initial encounter - Chronic obstructive pulmonary disease, unspecified INPATIENT VISIT TRACKING (12 MO.) 10/23/2017 21:20 [facility] Sonia Pillai [place] TYPE: General Medicine DIAGNOSES: - Precordial pain - Thoracic aortic aneurysm, without rupture - Dysphagia, unspecified - Essential (primary) hypertension - Atherosclerotic heart disease of [place] coronary artery without angina pectoris - Acute ischemic heart disease - Chronic atrial fibrillation [email or web address]
[2018-03-20] MEDS ORDERED: KEFLEX500 MG PO (23:09)
== END 2018-03-20 23:45 | disposition home or self-care (01) ==
LOC: ED 20:08
PROC: 093K7ZZ Control Bleeding in Nasal Mucosa and Soft Tissue, Via Natural or Artificial Opening (ICD-10-PCS; principal; 2018-03-20)
DX: R04.0 Epistaxis (principal); J44.9 Chronic obstructive pulmonary disease, unspecified; I48.91 Unspecified atrial fibrillation; K21.9 Gastro-esophageal reflux disease without esophagitis; E78.2 Mixed hyperlipidemia; I25.2 Old myocardial infarction; E03.9 Hypothyroidism, unspecified; G47.33 Obstructive sleep apnea (adult) (pediatric); F32.9 Major depressive disorder, single episode, unspecified; I73.9 Peripheral vascular disease, unspecified; D63.1 Anemia in chronic kidney disease; N18.9 Chronic kidney disease, unspecified; M06.9 Rheumatoid arthritis, unspecified; M81.0 Age-related osteoporosis without current pathological fracture; Z87.01 Personal history of pneumonia (recurrent); Z85.828 Personal history of other malignant neoplasm of skin; Z95.1 Presence of aortocoronary bypass graft; Z88.8 Allergy status to other drugs, medicaments and biological substances; Z88.5 Allergy status to narcotic agent; Z79.52 Long term (current) use of systemic steroids; Z79.01 Long term (current) use of anticoagulants; Z79.899 Other long term (current) drug therapy
CPT/HCPCS: 30903; 36415; 85025; 85610; 85730; 99283-25

== ENCOUNTER 2019-02-20 12:19 | Emergency (ER) | payer MEDICARE ==
[~2019-02-20] VITALS: Ht 172.7 cm; Wt 70.3 kg
--- OUTSIDE RECORDS SUMMARY | ~2019-02-20 | XMS | Encounter Summary ---
Demographics + + + | Address | [address] | | | [place] [address] | + + + | Home Phone | | + + + | Preferred Language | Unknown | + + + | Marital Status | | + + + | [employer] Affiliation | LUT | + + + | Race | White | + + + | Ethnic Group | Not or | + + + Author + + + | Organization | Unknown | + + + | Address | Unknown | + + + | Phone | Unavailable | + + + Support + + +---------+ + | Name | Relationship | Address | Phone | + + +---------+ + | Blossom Rose | ECON | Unknown | | + + +---------+ + Care Team Providers + +------+ + | Care Inspector Fibrous Wallboard Name | Role | Phone | + +------+ + | Maycol Knutson MD | PCP | | + +------+ + Encounter Details +--------+ + + + + | Date | Type | Department | Care Team | Description | +--------+ + + + + | 03/03/ | Procedure - | | Record, Operation | Operative Report | | 1997 | | | | | | | Transcribed | | | | +--------+ + + + + Social History + +-------+ +--------+------+ | Tobacco Use | Types | Packs/Day | Years | Date | | | | | Used | | + +-------+ +--------+------+ | Never Assessed | | | | | + +-------+ +--------+------+ + + + | Sex Assigned at | Date Recorded | | | | + + + | Not on file | | + + + + + + + | Job Start Date | Occupation | Industry | + + + + | Not on file | Not on file | Not on file | + + + + + + + + | Travel History | Travel Start | Travel End | + + + + + + | No recent travel history available. | + + documented as of this encounter Plan of Treatment Not on filedocumented as of this encounter Procedures + +--------+ + + + | Procedure Name | Priori | Date/Time | Associated Diagnosis | Comments | | | ty | | | | + +--------+ + + + | OPERATION RECORD | | 03/03/1998 | | Results for this | | | | | | procedure are in the | | | | | | results section. | + +--------+ + + + documented in this encounter Results OPERATION RECORD (03/03/1998) + + | Transcriptions | + + | Interface, Ecg Technician In - 03/22/2006 5:11 AM PST | | [facility] [facility] | | [place], [place] [address] [place] | | [facility] Center[facility] RECORDMed Rec No.: [id number] Date: | | 03/03/1998Name: Jose Martin Rose SURGEON: Dylan Arthur M.D. | | Mail Distribution Clerk, Otolaryngology | | Head and Neck SurgeryASSISTANTS: Cami Webster, | | Priyanka Resident, Otolaryngology | | Head and Neck Surgery Rashel Escalera M.D. 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 Right vertical hemilaryngectomy.2. | | Tracheostomy.SPECIMEN(S) REMOVED:1. Right hemilaryngectomy specimen for permanent | | sectioning.2. Frozen section of left anterior portion of vocal cord.3. Full section | | thickness of left cord.ESTIMATED BLOOD LOSS:Less than 50 cc.INDICATIONS:The patient is a | | 52-year-old gentleman who has had panendoscopy and workupfor hoarseness. He was noted | | to have a right-sided T2N0M0 squamous cellcarcinoma of the larynx. He was taken to | | the Operating Room for the aboveprocedure.FINDINGS:The patient had a right-sided | | laryngeal tumor which seemed to center in thefalse vocal cord. It extended slightly | | onto the left cord anteriorly. Thefrozen section on the left cord was positive for | | squamous cell carcinoma,and deep resection was taken and sent for permanent sectioning. | | The rightperichondrium was brought into the larynx as a neocord.PROCEDURE:The patient | | was identified in the preoperative area and brought to theOperating Room and | | placed in the supine position. General endotrachealanesthesia was administered. The | | table was turned. The neck was preppedby marking the incision and injecting it | | with 1% lidocaine with 1:100,000epinephrine. The patient was then prepped and draped | | in the usual sterilefashion.An incision was made in the skin and subplatysmal skin | | flaps elevatedsuperiorly and inferiorly. An incision was made midline between the | | strapmuscles, the sternohyoid and sternothyroid from midline. Thethyroid | | isthmus was also split down the midline. The perichondrium wasincised superiorly | | along the border of the thyroid cartilage, as well asinferiorly along the cartilage | | border. The planned cartilage cuts werealso incised after injecting | | perichondrially with 1% lidocaine with1:100,000 epinephrine. The perichondrium was | | then peeled posteriorly offthe right side. The cuts in the cartilage were then | | planned, keeping inmind the location of the tumor.A tracheostomy was performed by | | incising onto the second tracheal ring andinserting the Grambling tube. The cartilage | | cuts were then made just left ofthe midline and right in front of the oblique line on | | the right side. TheStryker oscillating saw was used to create these cuts, and care | | was takennot to penetrate the perichondrium. The inferior margin of resection wasjust | | above the cricoid cartilage. The mucosal cut on the left side wasthen created, the | | larynx opened, and the tumor visualized. The superiorcuts of the mucosa were made | | along the superior edge of the thyroidcartilage. Posteriorly, dissection | | continued using Metzenbaum scissorsacross the mucosa just through the arytenoid | | cartilage. The specimen wasremoved and sent to Pathology for sectioning. The | | perichondrium that hadbeen previously elevated was then tacked down to the posterior | | laryngealmucosa using interrupted 4-0 chromic. The wound was irrigated. | | Thetracheotomy tube was changed over to a #8 cuffed Shiley tube. The Dobbhofffeeding | | tube was then placed.The wound was closed in layers using 3-0 Vicryl for the | | platysma, 4-0Vicryl for the subcutaneous layers, and 5-0 nylon running for the | | skin.The wound was then dressed with fluffs and a Noah. Bacitracin had | | beenapplied.The patient was awakened and taken to the Post Anesthesia Care Unit | | instable condition.NOTE: Dr. Dylan Arthur was present for all spicer portions of the | | case.Cami Webster M.D. Dylan Arthur M.D.Resident, Otolaryngology | | Mail Distribution Clerk, OtolaryngologyHead and Neck Surgery Head and | | Neck SurgeryCYY/bwD: 03/03/1998T: 03/03/1998 10:50 Acc: | |epinephrine. The patient was then prepped and draped in the usual sterile | |fashion. | | | |An incision was made in the skin and subplatysmal skin flaps elevated | |superiorly and inferiorly. An incision was made midline between the strap | |muscles, the sternohyoid and sternothyroid from midline. The | |thyroid isthmus was also split down the midline. The perichondrium was | |incised superiorly along the border of the thyroid cartilage, as well as | |inferiorly along the cartilage border. The planned cartilage cuts were | |also incised after injecting perichondrially with 1% lidocaine with | |1:100,000 epinephrine. The perichondrium was then peeled posteriorly off | |the right side. The cuts in the cartilage were then planned, keeping in | |mind the location of the tumor. | | | |A tracheostomy was performed by incising onto the second tracheal ring and | |inserting the Grambling tube. The cartilage cuts were then made just left of | |the midline and right in front of the oblique line on the right side. The | |[employer] oscillating saw was used to create these cuts, and care was taken | |not to penetrate the perichondrium. The inferior margin of resection was | |just above the cricoid cartilage. The mucosal cut on the left side was | |then created, the larynx opened, and the tumor visualized. The superior | |cuts of the mucosa were made along the superior edge of the thyroid | |cartilage. Posteriorly, dissection continued using Metzenbaum scissors | |across the mucosa just through the arytenoid cartilage. The specimen was | |removed and sent to Pathology for sectioning. The perichondrium that had | |been previously elevated was then tacked down to the posterior laryngeal | |mucosa using interrupted 4-0 chromic. The wound was irrigated. The | |tracheotomy tube was changed over to a #8 cuffed Shiley tube. The Dobbhoff | |feeding tube was then placed. | | | |The wound was closed in layers using 3-0 Vicryl for the platysma, 4-0 | |Vicryl for the subcutaneous layers, and 5-0 nylon running for the skin. | |The wound was then dressed with fluffs and a Noah. Bacitracin had been | |applied. | | | |The patient was awakened and taken to the Post Anesthesia Care Unit in | |stable condition. | | | |NOTE: Dr. Dylan Arthur was present for all spicer portions of the case. | | | | | | | |Cami Webster M.D. Dylan Arthur M.D. | |Resident, Otolaryngology Mail Distribution Clerk, Otolaryngology | |Head and Neck Surgery Head and Neck Surgery | | | |RAMIREZ/judy | | | | A | | | |cc: | + + documented in this encounter Visit Diagnoses Not on filedocumented in this encounter"
--- OUTSIDE RECORDS SUMMARY | ~2019-02-20 | XMS | Encounter Summary ---
Demographics + + + | Address | [address] | | | [place] [address] | + + + | Home Phone | | + + + | Preferred Language | Unknown | + + + | Marital Status | | + + + | Denominational Affiliation | LUT | + + + | Race | White | + + + | Ethnic Group | Not or | + + + Author + + + | Author | [facility] | + + + | Organization | [facility] | + + + | Address | Unknown | + + + | Phone | Unavailable | + + + Support + + +---------+ + | Name | Relationship | Address | Phone | + + +---------+ + | Blossom Rose | ECON | Unknown | | + + +---------+ + Care Team Providers + +------+ + | Care Hammerer Tab Name | Role | Phone | + +------+ + | Maycol Callahan MD | PCP | | + +------+ + Encounter Details +--------+ + + + + | Date | Type | Department | Care Team | Description | +--------+ + + + + | 05/19/ | Office | [facility] | Note, Outpatient | Progress Note | | 1998 | Visit-Trans | MEDICINE | Clinic | | | | cribed | | | | +--------+ + + [...] + + documented as of this encounter Progress 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 Rose is seen back ahead of his scheduled visit because of some concerns on his part and his treating oncologist, Dr. Andre Puga, with his overall airway. Although he has only had approximately 12 treatments, he is noticing that he becomes dyspneic with minimal exertion, although he is comfortable at rest. He also has a significant amount of pain in his throat. It sounds as if, at night, he also has episodes of choking when his secretions get caught in his throat. ON EXAMINATION TODAY: He has really minimal skin reaction from the radiation therapy. There are no palpable masses in his neck. All of his incisions are well healed. Flexible fiberoptic laryngoscopy was done. He has significant erythema and edema of his supraglottic larynx, particularly his false cords. When one looks beyond this, however, the glottic area itself, although foreshortened in the AP dimension, appears to be adequate, with good mobility of his contralateral vocal cord and his right adenoid. There is some eschar on his vocal cord itself. The surrounding pharynx handles secretions well, although there is erythema. ASSESSMENT: Status post hemilaryngectomy, with airway edema. PLAN: I have discussed with him the fact that Zantac is probably not managing his reflux, for which he is fairly symptomatic. He, however, is intolerant of Prilosec. I am going to place him on Prevacid and see whether or not that works for him, in addition to his Prilosec. We will also try a short course of steroids. They will call me next week if there is no improvement. I had a long talk with them about the alternative of tracheotomy at this point, which would certainly deal with the problem, but this is not an acceptable option to him at present. I will check in with them next week. Dylan Arthur M.D. KRIS:cak1 cc: MAYCOL CALLAHAN MD [address] [facility] [address] [place] [address] AGUSTINA FERNANDEZ MD [address] [place] [address] ANDRE PUAG MD [facility] [address] [place] [address] STdocumented in this encounter Plan of Treatment Not on filedocumented as of this encounter Visit Diagnoses Not on filedocumented in this encounter"
--- OUTSIDE RECORDS SUMMARY | ~2019-02-20 | XMS | Encounter Summary ---
Demographics + + + | Address | [address] | | | [place] [address] | + + + | Home Phone | | + + + | Preferred Language | Unknown | + + + | Marital Status | | + + + | Adventist Affiliation | LUT | + + + | Race | White | + + + | Ethnic Group | Not or | + + + Author + + + | Author | [facility] | + + + | Organization | [facility] | + + + | Address | Unknown | + + + | Phone | Unavailable | + + + Support + + +---------+ + | Name | Relationship | Address | Phone | + + +---------+ + | Blossom Rose | ECON | Unknown | | + + +---------+ + Care Team Providers + +------+ + | Care Sales And Service Consultant Name | Role | Phone | + +------+ + | Maycol Knutson MD | PCP | | + +------+ + Reason for Visit + + + | Reason | Comments | + + + | Follow-up visit | | + + + Office Visit - E/M Services (Routine) +--------+--------+ + + + + | Status | Reason | Specialty | Diagnoses / | Referred By | Referred To | | | | | Procedures | Contact | Contact | +--------+--------+ + + + + | Closed | | Otolaryngolog | | Jerson, | Ent | | | | y | | MD Rickey | Laryngology | | | | | | [address] | [facility] [address] | | | | | | [address] | | | | | | [address] | [address] | | | | | | [place], [place] | Mailcode: | | | | | | [address] | [address] | | | | | | | Physician's | | | | | | | Pavilion | | | | | | | [place], [place] | | | | | | | [address] | | | | | | | Phone: | | | | | | | [phone] | | | | | | | Fax: | | | | | | | [phone] | +--------+--------+ + + + + Encounter Details +--------+---------+ + + + | Date | Type | Department | Care Team | Description | +--------+---------+ + + + | 07/31/ | Office | Otolaryngology | Alexei De | Pharyngeal dysphagia | | 2010 | Visit | Laryngology Services | MD Timbo [address] | (Primary Dx); | | | | at [facility] [address] | [address] | Glottic stenosis; | | | | [address] | [place], [place] | 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: [address] | [address] | ventricularis; | | | | Phys[facility]'s [facility] | [phone] | History of laryngeal | | | | [place], [place] | | cancer | | | | [address] | | | | | | [phone] | | | +--------+---------+ + + + Social History + + + +--------+ + | Tobacco Use | Types | Packs/Day | Years | Date | | | | | Used | | + + + +--------+ + | Former Smoker | Cigarettes | 1 | 30 | Quit: 03/18/1995 | + + + +--------+ + + + +---------+ + | Alcohol Use | Drinks/Week | oz/Week | Comments | + + +---------+ + | No [...] + + documented as of this encounter Last Filed Vital Signs + + + + + | Vital Sign | Reading | Time Taken | Comments | + + + + + | Blood Pressure | 135/77 | 07/31/2010 11:13 AM | | | | | PDT | | + + + + + | Pulse | 78 | 07/31/2010 11:13 AM | | | | | PDT | | + + + + + | Temperature | - | - | | + + + + + | Respiratory Rate | - | - | | + + + + + | Oxygen Saturation | - | - | | + + + + + | Inhaled Oxygen | - | - | | | Concentration | | | | + + + + + | Weight | 92.5 kg (204 lb) | 07/31/2010 11:13 AM | | | | | PDT | | + + + + + | Height | 172.7 cm (5' 8") | 07/31/2010 11:13 AM | | | | | PDT | | + + + + + | Body Mass Index | 31.02 | 07/31/2010 11:13 AM | | | | | PDT | | + + + + + documented in this encounter Progress Notes Alexei De MD - 07/31/2010 11:55 AM PDT PATIENT NAME: German Rose MR#: [id number] : 1945 REFERRING PROVIDER: RICKEY ARTHUR Otolaryngology [facility] [place] [address] PRIMARY CARE PROVIDER: Maycol Knutson MD CLINIC: [facility] REASON FOR FOLLOW-UP:Chief Complaint Patient presents with Follow-up visit TUMOR 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 male who was last seen at the [facility] for follow up of swallowing complaints. He has a history of hemilaryngecto my with neoglottic stenosis and laryngotracheal reconstruction with anterior and posterior c ostal cartilage grafting by Dr. Arthur in 1999. He returns today noting that he feels that his swallowing is similar or maybe a little wors e. He is still able to take all consistencies, but is careful with bulky items and particul ates. He will avoid bread at times, but will eat steak and even raw vegetables. He does co ugh on liquids and particulates occasionally . He thinks that his voice is "more hoarse". Specific difficulties with voicing include: poor vocal quality, effortful voicing and diffic ulty being heard in noise. He has not noted any otalgia. He denies odynophagia. He has n ot noted any hemoptysis. He does have some dyspnea on exertion. He has noted noisy breathi ng on deep inspiration, but only with exertion. This has not changed and is only noted with vigorous activity. He denies any recent episodes of pneumonia or bronchitis. He does not e problems with nasal allergy symptoms, including itchy eyes, rhinorrhea and sneezing. He u ses Claritin and Sudafed for this. He is not smoking. He is maintained on a proton-pump inhibitor. He notes no symptoms of reflux, including hea rtburn, indigestion, acidic taste or belching while on proton pump inhibitor therapy. He blanco s had a Sudarshan fundoplication. VOCAL DEMANDS: Unchanged from previous visit. 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 Hx stenosis dilation Sudarshan fundoplication Hx dml bx 09/1997 cCIS--pT2N0 SCCa right vocal fold Hx laryngotracheoplasty 1999 ALLERGIES: No Known Allergies MEDICATIONS:Current outpatient prescriptions Medication Sig ACYCLOVIR ORAL Take by mouth as needed. Amlodipine-Atorvastatin (CADUET) 10-10 mg Oral Tablet Take by mouth. atorvastatin (LIPITOR) 10 mg Oral Tablet Take 10 mg by mouth once daily. CYANOCOBALAMIN (VITAMIN B-12 INJ) by Injection route every thirty days. gabapentin 300 mg Oral Tablet Take 300 mg by mouth three times daily. LANSOPRAZOLE (PREVACID ORAL) Take by mouth. LORATADINE (CLARITIN ORAL) Take by mouth. metoclopramide (REGLAN) 5 mg Oral Tablet Take 5 mg by mouth every six hours as needed. NAPROXEN SODIUM/P-EPHED HCL (SUDAFED 12 HR SINUS-PAIN ORAL) Take by mouth. omeprazole (PRILOSEC) 40 mg Oral Capsule, Delayed Release(E.C.) Take 40 mg by mouth onc e daily. sertraline (ZOLOFT) 50 mg Oral Tablet Take 50 mg by mouth once daily. tamsulosin (FLOMAX) 0.4 mg Oral Capsule, Sust. Release 24 hr Take 0.4 mg by mouth once daily. TESTOSTERONE IM Inject into the muscle (IM). VICODIN ORAL None Entered LAST WEIGHTS: Wt Readings from Last 3 Encounters: 07/31/2010 92.534 kg (204 lb) 11/30/2009 97.523 kg (215 lb) 09/14/2009 85.503 kg (188 lb 8 oz) EXAMINATION: BP 135/77 | Pulse 78 | Ht 1.727 m (5' 8") | Wt 92.534 kg (204 lb) | BMI 31.02 kg/(m^2) Gen: He is a 65 y.o. male. He is awake, alert and comfortable with the examination. H is weight is elevated. Ears: The pinnae are normal. External auditory canals show minimal cerumen bilaterally. The tympanic membranes are clear with normal anatomic landmarks and an aerated middle ear space. Nose: The nasal dorsum is straight and the nares are widely patent. The mucosa is pink an d there are no lesions or masses noted. There is no significant nasal obstruction noted. Face: There are no worrisome lesions of the face or head noted. Oropharynx: Normal lips and oral competence are noted. The dentition is fair. The muc max is dry and pale, but shows no lesions or masses. The tonsils are small or absent and t he fossae show no lesions. Neck: The neck has well healed anterior transverse neck incision and tracheotomy tube scar. There is no lymphadenopathy noted in the anterior, posterior, digastric or submental tria ngles. The thyroid is palpable, but not enlarged or tender. I cannot appreciate any nodu les. The larynx is no longer anatomic and has cartilage loss along the right side. He has tenderness along the right anterior strap muscles in the region of the omohyoid muscles bilaterally. Chest: Chest rise is symmetric and there is no audible wheezing, stridor or wet vocal maximiliano lity. There is very mild stridor with deep inspiration. Neuro: Extraoccular movements are grossly intact. There is symmetric sensation and move ment noted of the upper and midface. Marginal mandibular nerve function is normal. Heari ng is grossly intact. Palatal elevation is symmetric and full. Trapezius function is nor mal. Tongue protrusion is midline. VOICE EVALUATION: Perceptual voice evaluation demonstrates severe dysphonia. The pitch is low for a male and shows limited range. Vocal intensity is acceptable and shows limited u pper range. There is 3+ roughness, 1+ breathiness, and 3+ tightness appreciated. T here is no tremor noted with sustained vowel phonation. I am unable to detect voice breaks. Glottal beth is not detected and there is no diplophonia noted. Articulation is normal. LARYNGOSCOPY: Indirect laryngoscopy was performed using a P3 Olympus flexible fiberoptic laryngoscope following the topical nasal application of oxymetazoline and pontocaine. This was performed because the patient's gag reflex precluded adequate transoral indirect laryngo scopy. This demonstrates a clear vallecula and crisp epiglottis. The right arytenoid is pa rtially present and mobile with mucosal redundancy. There is soft tissue where the right h emilarynx would be. This is benign and mucosalized. The true vocal folds are absent. The left false vocal fold is at least partially present. The left arytenoid is present, but f ixed. Both aryepiglottic folds are shortened. The base of tongue is clear. The subglot tic airway is slightly narrowed, but adequate. It is scarred anteriorly without mass. ------- ASSESSMENT: Mr. Rose appears to suffer from dysphonia, dysphagia and dyspnea associated wi th prior vertical hemilaryngectomy with reconstruction and radiation therapy which has not c hanged significantly since I last saw. 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 I don't think that his swallowing has changed substa ntially and I don't think that he would benefit from dilation at this time. PLAN: Continued periodic observation. I will see him back in approximately 12 months, or sooner if symptoms worsen. If his swallowing worsens or he notes more specific difficultie s with bulky solids, I would be happy to consider esophageal dilation. He understands and a grees. Alexei De M.D. [facility] Lawrence Kenny - 07/31/2010 11:17 AM PDTAdditional staff support provided to the patient d margarita this encounter included: Assisted patient in exam room getting on exam chair. documented in this encou nter Plan of Treatment Not on filedocumented as of this encounter Procedures + +--------+ + + + | Procedure Name | Priori | Date/Time | Associated Diagnosis | Comments | | | ty | | | | + +--------+ + + + | [place] | Routin | 07/31/2010 | Glottic stenosis | | | LARYNGOSCOPY,FLEXIBL | e | 11:56 AM | Pharyngeal dysphagia | | | E, DIAGNOSTIC | | PDT | Dysphonia plicae | | | | | | ventricularis | | | | | | History of laryngeal | | | | | | cancer | | + +--------+ + + + documented in this encounter Visit Diagnoses + + | Diagnosis | + + | Pharyngeal dysphagia - Primary Dysphagia, pharyngeal phase | + + | Glottic stenosis Stenosis of larynx | + + | Dysphonia plicae ventricularis Dysphonia | + + | History of laryngeal cancer Personal history of malignant neoplasm of larynx | + + documented in this encounter
--- OUTSIDE RECORDS SUMMARY | ~2019-02-20 | XMS | Encounter Summary ---
Demographics + + + | Address | [address] | | | [place] [address] | + + + | Home Phone | | + + + | Preferred Language | Unknown | + + + | Marital Status | | + + + | Jainism Affiliation | LUT | + + + | Race | White | + + + | Ethnic Group | Not or | + + + Author + + + | Author | [facility] | + + + | Organization | [facility] | + + + | Address | Unknown | + + + | Phone | Unavailable | + + + Support + + +---------+ + | Name | Relationship | Address | Phone | + + +---------+ + | Blsosom Rose | ECON | Unknown | | + + +---------+ + Care Team Providers + +------+ + | Care Electronic Console Display Operator Name | Role | Phone | [...] as of this encounter Progress Notes Interface, Green Meat Packer In - 03/13/2006 5:13 AM [facility]: [facility] OT[facility] Mr. Rose [...] M.D. KRIS:cak1 cc: MAYCOL CALLAHAN MD [address] [facility] [address] [place] [address] AGUSTINA FERNANDEZ MD [address] [place] [address] ANDRE PUGA MD [facility] [address] [place] [address] STdocumented in this encounter Plan of Treatment Not on filedocumented as of this encounter Visit Diagnoses Not on filedocumented in this encounter"
--- OUTSIDE RECORDS SUMMARY | ~2019-02-20 | XMS | Encounter Summary ---
Demographics + + + | Address | [address] | | | [place] [address] | + + + | Home Phone | | + + + | Preferred Language | Unknown | + + + | Marital Status | | + + + | Buddhist Affiliation | LUT | + + + | Race | White | + + + | Ethnic Group | Not or | + + + Author + + + | Author | [facility] | + + + | Organization | [facility] | + + + | Address | Unknown | + + + | Phone | Unavailable | + + + Support + + +---------+ + | Name | Relationship | Address | Phone | + + +---------+ + | Blossom Rose | ECON | Unknown | | + + +---------+ + Care Team Providers + +------+ + | Care Chicken Boner Name | Role | Phone | + +------+ + | Maycol Knutson MD | PCP | | + +------+ + Encounter Details +--------+ + + + + | Date | Type | Department | Care Team | Description | +--------+ + + + + | 09/21/ | Office | [facility] | Note, [...] as of this encounter Progress Notes Interface, Enterprise Resource Analyst In - 02/26/2006 5:02 AM PSTCLINIC DATE: 09/21/1998 GENERAL SURGERY CLINIC PRIMARY PHYSICIAN: Dr. Myacol Knutson. CHIEF COMPLAINT: Gastroesophageal reflux disease. HISTORY OF PRESENT ILLNESS: The staff physician for this patient's case was Dr. Rohan Barragan. Mr. German Rose is a 54-year-old gentleman with a history of laryngeal stenosis, after undergoing a partial laryngectomy for squamous cell cancer in 1997. He had initial improvement of his laryngeal stenosis with dilation procedures, but he had recurrent stenosis. During one of his follow-up visits with the Otolaryngology Clinic, the physician in that clinic noted that the patient was having significant reflux symptoms and possible aspirations. A pH probe study was performed, revealing significant reflux distally in the esophagus. He visits us now for an evaluation for possible surgical intervention and treatment of his gastroesophageal reflux disease. PAST MEDICAL HISTORY: The patient's past medical history is significant for a myocardial infarction in November of 1995. He underwent a quadruple bypass surgery in 1997. 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 The patient also has the history of kidney stones, with a subsequently scarred ureter. PAST SURGICAL HISTORY: The patient's previous surgical procedures include the coronary artery bypass graft procedure x four, the previously mentioned ear, nose, and throat surgeries, as well as radiation therapy for his vocal cord cancer. CURRENT MEDICATIONS: 1. Prilosec, 40 mg p.o.b.i.d. 2. Norvasc, 10 mg q. day. 3. Baby aspirin, one tablet q. day. 4. Lipitor, 10 mg p.o.q. day. 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 HE DENIES ANY PROBLEMS WITH BLEEDING. SOCIAL HISTORY/PERSONAL HEALTH HABITS: The patient lives with his in [place], [place]. REVIEW OF SYSTEMS: On the review of systems, neurologically the patient denies any loss of consciousness or syncopal episodes. With regard to the pulmonary system, the patient notes shortness of breath with dyspnea on exertion on approximately eight steps. He denies any history of asthma. With regard to the cardiovascular review of systems, the patient denies chest pain or palpitations. Regarding the genitourinary system, the patient denies dysuria. With regard to the gastrointestinal system, the patient denies melena. OBJECTIVE: VITAL SIGNS: On the physical examination, the patient's blood pressure is 138/78, his heart rate is 88, and his respiratory rate is 18. GENERAL APPEARANCE: In general, the patient is in no acute distress, although he does have raspy vocalization. HEENT: The head, eyes, ears, nose, and throat examination reveals that the pupils are equally round and reactive to light. The extraocular movements are intact. The teeth appear to be intact. NECK: The neck examination reveals that the patient has a healed neck incision. LUNGS: On examination of the lungs, the patient has a midline skin incision from his previous coronary artery bypass graft procedure. This is well healed. The lungs are otherwise clear to auscultation bilaterally. CARDIOVASCULAR: On the cardiovascular examination, the patient's heart has a regular rate and rhythm, with no murmurs, rubs, or gallops noted. ABDOMEN: The abdomen is obese, nondistended, and nontender. It is soft, with no palpable masses. The patient does have an umbilical hernia, which is easily reducible. BACK/EXTREMITIES: The back and extremities examinations are within normal limits. NEUROLOGICAL EXAMINATION: MENTAL STATUS: The patient appears to be alert and oriented x three, with a nonfocal neurological examination otherwise. ASSESSMENT: 1. Gastroesophageal reflux disease, unresponsive to medical therapy. 2. Laryngeal stenosis, status post partial laryngectomy. 3. Umbilical hernia. PLAN: We will plan to have the patient undergo manometry studies with Dr. Kelby Zuñiga or one of his associates on September 29, 1998. Depending upon the results of these studies, we will plan to proceed with a partial versus complete fundoplication procedure on September 30, 1998. We will attempt to perform the fundoplication laparoscopically. However, the patient is aware of the possibility of converting to an open procedure, if necessary. Additionally, we will plan to repair the umbilical hernia, possibly with mesh if we are able to do so. Concurrently with these procedures, Dr. Dylan Arthur of the Otolaryngology Clinic desires to evaluate the patient intraoperatively, with a possible laryngeal dilation procedure. The patient understands the risks and benefits of the procedure, including but not exclusive to the risk of bleeding, infection, anesthesia including stroke, heart attack, or , and the possibilities gas bloating, with esophageal or gastric perforation. The patient and his signed the informed consent forms, and desire to proceed with surgery. Aleksandar Blount M.D. Rohan Barragan M.D. PAOLO/deirdre/frances cc: Deandra Zuñiga M.D., F.A.C.P., F.A.C.Priyanka Parrish MD [address] [place] [address] [place] [id number] signed by Interface, Enterprise Resource Analyst In at 02/26/2006 5:02 AM PSTdocumented in this encounter Plan of Treatment Not on filedocumented as of this encounter Visit Diagnoses Not on filedocumented in this encounter"
--- OUTSIDE RECORDS SUMMARY | ~2019-02-20 | XMS | Encounter Summary ---
Demographics + + + | Address | [address] | | | [place] [address] | + + + | Home Phone | | + + + | Preferred Language | Unknown | + + + | Marital Status | | + + + | Caodaism Affiliation | LUT | + + + [...] Team Providers + +------+ + | Care Oil Furnace Installer Name | Role | Phone | + +------+ + | Maycol Knutson MD | PCP | | + +------+ + Encounter Details +--------+ + + + + | Date | Type | Department | Care Team | Description | +--------+ + + + + | 09/21/ | Office | [facility] | Note, Outpatient | Progress Note | | 2000 | Visit-Trans | MEDICINE | Clinic | [...] as of this encounter Progress Notes Interface, Collar Stitcher In - 02/01/2006 1:04 AM PSTCLINIC DATE: 09/22/1999 OTOLARYNGOLOGY/HEAD AND NECK SURGERY SUBJECTIVE: Mr. Rose is seen back today in followup with respect to his laryngotracheoplasty following hemilaryngectomy. He feels that his airway is back to normal. He is back working and is quite pleased with things overall. He has no pain. He still occasional thick drainage which gets caught. OBJECTIVE: Today, his ears are normal bilaterally. Nose normal to anterior rhinoscopy. Flexible fiberoptic laryngoscopy to the nasopharynx, oropharynx, hypopharynx is done. He has good glottic airway and the expected post-radiation supraglottic mild edema. One can still see some area of cartilaginous sequestra just below the anterior commissure, but the total area measures less than 5 mm by 3 mm. ASSESSMENT: Status post laryngotracheoplasty, doing well. PLAN: I will see him back in three months. Dylan Arthur M.D. KRIS / [id number] / [id number] / [id number] / [id number] C: 09/28/1999 lance cc: MAYCOL JETT MD [address] [place] [address] [address] [place] [id number] signed by Interface, Collar Stitcher In at 02/01/2006 1:04 AM PSTdocumented in this encounter Plan of Treatment Not on filedocumented as of this encounter Visit Diagnoses Not on filedocumented in this encounter"
--- OUTSIDE RECORDS SUMMARY | ~2019-02-20 | XMS | Encounter Summary ---
Demographics + + + | Address | [address] | | | [place] [address] | + + + | Home Phone | | + + + | Preferred Language | Unknown | + + + | Marital Status | | + + + | Latter Day Affiliation | LUT | + + + | Race | White | + + + | Ethnic Group | Not or | + + + Author + + + | Author | [facility] | + + + | Organization | [facility] | + + + | Address | Unknown | + + + | Phone | Unavailable | + + + Support + + +---------+ + | Name | Relationship | Address | Phone | + + +---------+ + | Blossom Rose | ECON | Unknown | | + + +---------+ + Care Team Providers + +------+ + | Care Catering Cook Name | Role | Phone | + +------+ + | Maycol Callahan MD | PCP | | + +------+ + Reason for Visit + + + | Reason | Comments | + + + | New patient | | | consultation | | + + + | Dysphagia | | + + + | Hoarseness | | + + + | Cancer | larynx | + + + Consultation (Routine) +--------+ + + + + + | Status | Reason | Specialty | Diagnoses / | Referred By | Referred To | | | | | Procedures | Contact | Contact | +--------+ + + + + + | Closed | Specialty | Otolaryngolog | Diagnoses | Jerson, | Kenisha, | | | Services | y | Malignant | MD Rickey | Alexei Izquierdo MD | | | Required | | neoplasm of | [address] | [address] | | | | | glottis | [facility] | [facility] | | | | | (HCC) | Rd | Rd [place], | | | | | Procedures | [place], [place] | [place] | | | | | NEW PATIENT | [address] | [phone] | | | | | [address] | | Phone: | | | | | LARYNGOSCOPY | | [phone] | | | | | ,FLEX | | Fax: | | | | | FIBER,DIAGNO | | [phone] | | | | | STIC | | | +--------+ + + + + + Encounter Details +--------+---------+ + + + | Date | Type | Department | Care Team | Description | +--------+---------+ + + + | 12/18/ | Office | Otolaryngology | Alexei De | Pharyngeal Dysphagia | | 2006 | Visit | Laryngology Services | MD Timbo [address] | (Primary Dx); | | | | at [facility] [address] | [facility] [address] | Allergic Rhinitis, | | | | [facility] [address] | [place], [place] | Cause Unspecified; | | | | Mailcode: PV01 | [address] | Laryngeal Cancer | | | | [facility] | [phone] | ([facility]); Glottic | | | | [place], [place] | | Stenosis | | | | [address] | | | | | | [phone] | | | +--------+---------+ + + + [...] + + + | Blood Pressure | - | - | | + + + + + | Pulse | - | - | | + [...] Weight | 92.5 kg (204 lb) | 12/18/2006 2:28 PM | | | | | PDT | | + + + + + | Height | - | - | | + + + + + | Body Mass Index | - | - | | + + + + + documented in this encounter Progress Notes Alexei De S - 12/19/2006 3:11 PM PDTFormatting of this note might be different fro m the original. 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 EXAM: PA and lateral chest. INDICATION: Preop, and head and neck malignancy COMPARISON: None. FINDINGS: The cardiac and mediastinal contours are normal. The patient has had a prior CABG procedure. The lungs are clear without evidence for suspicious pulmonary nodules. There is no pleural effusion. Osseous structures are unremarkable. IMPRESSION: Prior CABG procedure. No evidence for acute pulmonary disease. LAST LFTs: No results found for this basename: tbili,ap,tp,dirbili,alb,ast,alt LAST TSH: No results found for this basename: tsh RADIATION THERAPY COMPLETED: Fall 1997 RADIATION THERAPIST: Unknown RADIATION DOSE: Unknown HPI: German Rose is a 61 y.o. male who returns today for routine follow-up examination not ing that he has had recent trouble with throat discomfort. this came on acutely about 3 wee ks ago and improved since then. He has not noted any otalgia. He denies dyspnea or noisy br eathing. He has not noted worsening of his voice. He feels that his swallowing is back to b aseline. He notes no consistency restrictions or diet modifications. He is not smoking. He has been followed by Dr. Arthur for many years, but is transferring his care to the [facility] because Dr. Arthur will be moving to the [facility] . 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 Hx stenosis dilation Hx jacqueline fundoplication Hx dml bx 09/1997 cCIS--pT2N0 SCCa right vocal fold Hx laryngotracheoplasty 1999 ALLERGIES: Allergies Allergen Reactions Penicillins MEDICATIONS:Current outpatient prescriptions Medication Sig NEXIUM ORAL None Entered BABY ASPIRIN ORAL None Entered VICODIN ORAL None Entered GABAPENTIN ORAL None Entered Fexofenadine HCl (FRANCESCO) 180 mg Oral Tablet take 1 tablet (180 mg) by oral route once daily Fluticasone Propionate (FLONASE) 50 mcg/Actuation Nasal Aerosol, [place] 2 sprays in each nostril by nasal route twice daily EXAMINATION: Wt 92.534 kg (204 lbs) Gen: He is a 61 y.o. male. He is awake, alert and comfortable with the examination. His weight is appropriate. Ears: The pinnae are normal. External auditory canals show minimal cerumen bilaterally. The tympanic membranes are clear with normal anatomic landmarks and an aerated middle ear sp anatoly. Nose: The nasal dorsum is straight and the nares are widely patent. The mucosa is pink and there are no lesions or masses noted. There is no significant nasal obstruction noted. Face: There are no worrisome lesions of the face or head noted. Salivary Glands: The salivary glands are soft and show no lesions or masses within the par otid or submandibular glands bilaterally. There is no obvious obstruction of Stensen's or W samuel's ducts bilaterally. Oropharynx: Normal lips and oral competence are noted. The dentition is fair. The mucosa is dry and pale, but shows no lesions or masses. The tonsils are small or absent and the f ossae show no lesions. Bimanual palpation of the gigivolabial sulcus, lingual sulcus, tonsi llar pillars, palate and base of tongue did not demonstrate any concerning lesions or masses . Neck: The neck has well healed anterior transverse neck incisions and tracheotomy tube scar . There is no lymphadenopathy noted in the anterior, posterior, digastric or submental tria ngles. The thyroid is palpable, but not enlarged or tender. I cannot appreciate any nodule s. The larynx is no longer anatomic and has cartilage loss along the right side. Chest: Chest rise is symmetric and there is no audible wheezing, stridor or wet vocal qual ity. There is very mild stridor with deep inspiration. Neuro: Extraoccular movements are grossly intact. There is symmetric sensation and moveme nt noted of the upper and midface. Marginal mandibular nerve function is normal. Hearing i s grossly intact. Palatal elevation is symmetric and full. Trapezius function is normal. Tongue protrusion is midline. VOICE EVALUATION: Perceptual voice evaluation demonstrates moderate-severe dysphonia. The pitch is low for a male and shows limited range. Vocal intensity is acceptable and shows li mited upper range. There is 2-3+ roughness, 1+ breathiness, and 2+ tightness appreciated . There is no tremor noted with sustained vowel phonation. I am unable to detect voice elvis aks. Glottal beth is not detected and there is no diplophonia noted. Articulation is normal . LARYNGOSCOPY: Indirect laryngoscopy was performed using a 90 degree Mejia kavitha telescope. This demonstrates a clear vallecula and crisp epiglottis. The right .arytenoid is partiall y present and mobile. There is soft tissue where the right hemilarynx would be. This is be nign and mucosalized. The true vocal folds are absent. The left false vocal fold is at adams st partially present. The left arytenoid is present, but fixed. Both aryepiglottic folds a re shortened. The base of tongue is clear. The subglottic airway is slightly narrowed, but adequate. ASSESSMENT: Mr. Rose appears to be doing well and should be cured of his previous squamous cell carcinoma. He may have had a upper respiratory tract infection, but seems better now . He may be having some progressive changes from radiation, but these are slow at this time . PLAN: I have recommended that he return immediately should his symptoms return. I have re commended that I see him annually or if he should have any new problems. Alexei De M.D. Auto Accessories Installer Laryngology and Head & Neck Surgery documented in this en counter Plan of Treatment + + +--------+ + + | Name | Type | Priori | Associated Diagnoses | Order Schedule | | | | ty | | | + + +--------+ + + | DE LARYNGOSCOPY,FLEX | Procedures | Routin | Laryngeal Cancer | Ordered: 12/19/2006 | | FIBER,DIAGNOSTIC | | e | ([facility]) Glottic | | | | | | Stenosis Pharyngeal | | | | | | Dysphagia | | + + +--------+ + + documented as of this encounter Visit Diagnoses + + | Diagnosis | + + | Pharyngeal dysphagia - Primary Dysphagia, pharyngeal phase | + + | Allergic rhinitis, cause unspecified | + + | Laryngeal cancer (HCC) Malignant neoplasm of larynx, unspecified site | + + | Glottic stenosis Stenosis of larynx | + + documented in this encounter"
--- OUTSIDE RECORDS SUMMARY | ~2019-02-20 | XMS | Encounter Summary ---
Demographics + + + | Address | [address] | | | [place] [address] | + + + | Home Phone | | + + + | Preferred Language | Unknown | + + + | Marital Status | | + + + | Anglican Affiliation | LUT | + + + [...] Team Providers + +------+ + | Care Process Control Manager Name | Role | Phone | + +------+ + | Maycol Knutson MD | PCP | | + +------+ + Encounter Details +--------+ + + + + | Date | Type | Department | Care Team | Description | +--------+ + + + + | 10/01/ | Procedure - | | Documentation, | OP REPORT-TEACHING | | 1998 | | | Teaching Physician | | | | Transcribed | | [...] | + +--------+ + + + | TEACHING PHYSICIAN | | 10/01/1998 | | | + +--------+ + + + documented in this encounter Visit Diagnoses Not on filedocumented in this encounter"
--- OUTSIDE RECORDS SUMMARY | ~2019-02-20 | XMS | Encounter Summary ---
Demographics + + + | Address | [address] | | | [place] [address] | + + + | Home Phone | | + + + | Preferred Language | Unknown | + + + | Marital Status | | + + + | Faith Affiliation | [id number] | + + + | Race | Unknown | + + + | Ethnic Group | Unknown | + + + Author + + + | Author | [facility] | | | and [place] | + + + | Organization | [facility] | | | and [place] | + + + | Address | Unknown | + + + | Phone | Unavailable | + + + Support + + + + + | Name | Relationship | Address | Phone | + + + + + | Blossom Rose | ECON | [address] | | | | | [place] | | | | | [address] | | + + + + + Care Team Providers + +------+ + | Care French Binding Folder Name | Role | Phone | + +------+ + | Nelson Laird MD | PCP | | + +------+ + Reason for Visit + + + | Reason | Comments | + + + | Medication Refill | | + + + Encounter Details +--------+--------+ + + + | Date | Type | Department | Care Team | Description | +--------+--------+ + + + | 12/31/ | Refill | [facility] | Cristian Mccoy, | Medication Refill | | 2019 | | CARDIOLOGY DIONICIO | [address] | | | | | [address] | [place], [place] | | | | | [address] [place] [address] | [address] | | | | | [place] | | | | | | [address] | | | | | | [phone] | | | +--------+--------+ + + + Social History + + + +--------+ + | Tobacco Use | Types | Packs/Day | Years | Date | | | | | Used | | + + + +--------+ + | Former Smoker | Cigarettes | 1 | 35 | Quit: 12/16/1995 | + + + +--------+ + + +---+---+---+ | Smokeless Tobacco: | | [...] as of this encounter Plan of Treatment +--------+---------+ + + + | Date | Type | Specialty | Care Team | Description | +--------+---------+ + + + | 03/05/ | Office | Pulmonology | Elia, | | | 2019 | Visit | | Mary [place], | | | | | | [address] | | | | | | [place], | | | | | | [place] [address] | | | | | | [phone] | | | | | | | | +--------+---------+ + + + | 05/19/ | Office | Cardiology | Cristian Mccoy, | | | 2019 | Visit | | [address] | | | | | | [place] | | | | | | [address] | | | | | | | | +--------+---------+ + + + documented as of this encounter Visit Diagnoses Not on filedocumented in this encounter"
--- OUTSIDE RECORDS SUMMARY | ~2019-02-20 | XMS | Clinical Summary ---
Demographics + + + | Address | [address] | | | [place] [address] | + + + | Home Phone | | + + + | Preferred Language | Unknown | + + + | Marital Status | | + + + | Druze Affiliation | 1028 | + + + | Race | Unknown | + + + | Ethnic Group | Unknown | + + + Author + + + | Author | [facility] | | | and [place] | + + + | Organization | [facility] | | | [...] [place] | | | | | [id number] | | + + + + + Care Team Providers + +------+ + | Care End Stapler Name | Role | Phone | + +------+ + | Nelson Laird MD | PCP | | + +------+ + Allergies + + + + + + | Active Allergy | Reactions | Severity | Noted | Comments | | | | | Date | | + + + + + + | Beta Adrenergic | Anaphylaxis | High | 09/14/19 | | | Blockers | | | 15 | | + + + + + + | Diltiazem | Other (See Comments) | Medium | 09/14/19 | | | | | | 15 | | + + + + + + | Diltiazem Hcl | | | | | + + + + + + | Gabapentin | Other (See Comments) | Medium | 09/14/19 | 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 | | | | | 15 | | + + + + + + | Imipramine | Other (See Comments) | Medium | 09/14/19 | Urinary retention | | | | | 15 | | + + + + + + | Lipitor | | | | | + + + + + + | Metoprolol | Swelling | Medium | 09/14/19 | | | | | | 15 | | + + + + + + | Propranolol | Other (See Comments) | Medium | 09/14/19 | cody's | | | | | 15 | | + + + + + + | Propranolol Hcl | | | | | + + + + + + Medications + + + +---------+------+------+-------+ | Medication | Sig | Dispensed | Refills | Star | End | Statu | | | | | | t | Date | s | | | | | | Date | | | + + + +---------+------+------+-------+ | fluticasone | one spray in each | | 0 | 09/1 | | Activ | | (FLONASE) 50 | nostril daily as | | | 4/20 | | e | | mcg/nasal spray | needed | | | 12 | | | + + + +---------+------+------+-------+ | ferrous sulfate | Take 325 mg by mouth | | 0 | 09/1 | | Activ | | 325 mg tablet | 3 times daily. | | | 4/20 | | e | | | | | | 12 | | | + + + +---------+------+------+-------+ | levothyroxine | Take 75 mcg by mouth | | 0 | 09/1 | | Activ | | (LEVOTHROID) 75 MCG | Daily. | | | 4/20 | | e | | tablet | | | | 12 | | | + + + +---------+------+------+-------+ | omeprazole | Take 20 mg by mouth | | 0 | 1 | | Activ | | (PRILOSEC) 20 mg | 2 times daily. | | | 07/05 | | e | | capsule | | | | 12 | | | + + + +---------+------+------+-------+ | metoclopramide | Take 10 mg by mouth | | 0 | /1 | | Activ | | (REGLAN) 10 mg | 4 times daily as | | | 420 | | e | | tablet | needed. | | | 12 | | | + + + +---------+------+------+-------+ | guaiFENesin | Take 1,200 mg by | | 0 | | | Activ | | (MUCINEX) 600 mg 12 | mouth 2 times daily. | | | | | e | | hr tablet | | | | | | | + + + +---------+------+------+-------+ | furosemide (LASIX) | Take 40 mg by mouth | | 0 | | | Activ | | 40 mg tablet | Daily. | | | | | e | + + + +---------+------+------+-------+ | folic acid 1 mg | Take 1 mg by mouth | | 0 | | | Activ | | tablet | Daily. | | | | | e | + + + +---------+------+------+-------+ | tamsulosin | Take 0.4 mg by mouth | | 0 | 09/1 | | Activ | | (FLOMAX) 0.4 mg CAPS | 2 times daily. | | | 4/20 | | e | | | | | | 12 | | | + + + +---------+------+------+-------+ | | Apply topically 2 | | 0 | | | Activ | | nystatin-triamcinolo | times daily. | | | | | e | | ne (MYCOLOG II) | | | | | | | | cream | | | | | | | + + + +---------+------+------+-------+ | potassium citrate | Take 10 mEq by mouth | | 0 | | | Activ | | (UROCIT-K) 10 mEq SR | 2 times daily. | | | | | e | | tablet | | | | | | | + + + +---------+------+------+-------+ | albuterol (PROAIR | Inhale 2 puffs into | | 0 | | | Activ | | HFA) 90 mcg/puff | the lungs every 6 | | | | | e | | inhaler | hours as needed for | | | | | | | | Wheezing. | | | | | | + + + +---------+------+------+-------+ | predniSONE | Take 10 mg by mouth | | 0 | | | Activ | | (DELTASONE) 5 mg | Daily. | | | | | e | | tablet | | | | | | | + + + +---------+------+------+-------+ | acyclovir | Apply topically | | 0 | | | Activ | | (ZOVIRAX) 5% | every 3 hours. | | | | | e | | ointment | | | | | | | + + + +---------+------+------+-------+ | | Inhale 1 puff into | | 0 | | | Activ | | fluticasone-salmeter | the lungs Twice | | | | | e | | ol (ADVAIR) 500-50 | Daily. | | | | | | | mcg/puff diskus | | | | | | | | inhaler | | | | | | | + + + +---------+------+------+-------+ | digoxin (LANOXIN) | Take 125 mcg by | | 0 | | | Activ | | 250 mcg tablet | mouth Daily. 1/2 | | | | | e | | | capsule daily | | | | | | + + + +---------+------+------+-------+ | atorvaSTATin | TAKE 1 TABLET BY | | 0 | 03/2 | 03/2 | Activ | | (LIPITOR) 40 mg | MOUTH NIGHTLY | | | 10/04 | 09/04 | e | | tablet | | | | 19 | 20 | | + + + +---------+------+------+-------+ | azaTHIOprine | Take 150 mg by mouth | | 0 | | | Activ | | (IMURAN) 50 mg | daily. | | | | | e | | tablet | | | | | | | + + + +---------+------+------+-------+ | | Apply to eye as | | 0 | | | Activ | | bacitracin-polymyxin | needed. | | | | | e | | b (POLYSPORIN) | | | | | | | | ophthalmic ointment | | | | | | | + + + +---------+------+------+-------+ | bismuth | Take 262 mg by mouth | | 0 | | | Activ | | subsalicylate (PEPTO | 4 (four) times | | | | | e | | BISMOL) 262 mg | daily before meals | | | | | | | chewable tablet | and nightly. | | | | | | + + + +---------+------+------+-------+ | diclofenac | Apply 2 g topically | | 0 | | | Activ | | (VOLTAREN) 1% GEL | 4 (four) times | | | | | e | | | daily. PRN | | | | | | + + + +---------+------+------+-------+ | famotidine | Take 40 mg by mouth | | 0 | | | Activ | | (PEPCID) 40 MG | daily. | | | | | e | | tablet | | | | | | | + + + +---------+------+------+-------+ | | Take 3 mLs by | | 0 | 08/1 | | Activ | | albuterol-ipratropiu | nebulization every 6 | | | 1/20 | | e | | m 2.5-0.5 mg/3 mL | (six) hours as | | | 18 | | | | SOLN | needed. | | | | | | + + + +---------+------+------+-------+ | levocetirizine | Take 5 mg by mouth | | 0 | | | Activ | | (XYZAL) 5 MG tablet | as needed. | | | | | e | + + + +---------+------+------+-------+ | mupirocin | 1 g by Nasal route | | 0 | | | Activ | | (BACTROBAN) 2% | as needed. Use pea | | | | | e | | ointment | sized amount in each | | | | | | | | nostril twice daily | | | | | | | | for 5 days. After | | | | | | | | applications, press | | | | | | | | sides of nose | | | | | | | | together, gently | | | | | | | | massage for 1 min. | | | | | | + + + +---------+------+------+-------+ | ofloxacin | | | 0 | 04/0 | | Activ | | (OCUFLOX) 0.3% | | | | 9/20 | | e | | ophthalmic solution | | | | 18 | | | + + + +---------+------+------+-------+ | trolamine | Apply topically as | | 0 | | | Activ | | salicylate | needed. | | | | | e | | (ASPERCREME) 10% | | | | | | | | cream | | | | | | | + + + +---------+------+------+-------+ | acyclovir | Take 400 mg by mouth | | 0 | | | Activ | | (ZOVIRAX) 400 MG | 5 (five) times | | | | | e | | tablet | daily. PRN | | | | | | + + + +---------+------+------+-------+ | albuterol (PROAIR | Inhale into the | | 0 | | | Activ | | RESPICLICK) 90 | lungs. | | | | | e | | mcg/puff inhaler | | | | | | | + + + +---------+------+------+-------+ | sertraline | Take 100 mg by mouth | | 0 | | | Activ | | (ZOLOFT) 100 mg | daily. | | | | | e | | tablet | | | | | | | + + + +---------+------+------+-------+ | losartan (COZAAR) | Take 50 mg by mouth | | 0 | | | Activ | | 50 mg tablet | daily. | | | | | e | + + + +---------+------+------+-------+ | cyanocobalamin | Take 1,000 mcg by | | 0 | | | Activ | | (VITAMIN B-12) 1000 | mouth daily. | | | | | e | | MCG tablet | | | | | | | + + + +---------+------+------+-------+ | cholecalciferol | Take 1,000 Units by | | 0 | | | Activ | | (CHOLECALCIFEROL) | mouth daily. | | | | | e | | 1000 units TABS | | | | | | | + + + +---------+------+------+-------+ | XARELTO 10 MG | TAKE ONE TABLET BY | 90 | 2 | 10/ | | Activ | | tablet | MOUTH EVERY DAY | tablet | | 10/04 | | e | | | | | | 19 | | | + + + +---------+------+------+-------+ Active Problems + + + | Problem | Noted Date | + + + | Stable angina | 12/04/2017 | + + + | COPD, moderate | 11/28/2017 | + + + | Personal history of tobacco use, presenting hazards to health | 11/28/2017 | + + + | Rheumatoid arthritis | 11/28/2017 | + + + | Moderate protein-calorie malnutrition | 10/24/2017 | + + + | Dysphagia | 10/24/2017 | + + + | Severe protein-calorie malnutrition | 10/24/2017 | + + + | Chronic bronchitis | 10/23/2017 | + + + | Chronic maxillary sinusitis | 10/23/2017 | + + + | Multifocal lung consolidation | 10/23/2017 | + + + | Peptic ulcer disease | 10/23/2017 | + + + | CARPAL TUNNEL SYNDROME | | + + + | Essential hypertension | | + + + | Chronic atrial fibrillation | | + + + | Raynaud disease | | + + + | Fibromyalgia | | + + + | 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 | | | stable angina pectoris | | + + + | Aortic aneurysm | | + + + | NOLA (obstructive sleep apnea) | | + + + | Cancer of vocal cord | | + + + + + | Overview: Treated with surgery and radiation | + + + +---+ | Parasomnia | | + +---+ | 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 | | + +---+ Resolved Problems + +--------+ + | Problem | Noted | Resolved | | | Date | Date | + +--------+ + | Heart failure | | | | | | 9 | + +--------+ + Encounters +--------+ + + + + | Date | Type | Specialty | Care Team | Description | +--------+ + + + + | 01/19/ | Office | Vascular Surgery | Bridget Milian DNP | Abdominal aortic | | 2018 | Visit | | | aneurysm (AAA) | | | | | | without rupture | | | | | | (HCC) (Primary Dx); | | | | | | Carotid stenosis, | | | | | | bilateral | +--------+ + + + + | 01/19/ | Hospital | Radiology | | Carotid stenosis, | | 2018 | Encounter | | | bilateral | +--------+ + + + + | 01/19/ | Hospital | Radiology | | Abdominal aortic | | 2019 | Encounter | | | aneurysm (AAA) | | | | | | without rupture | | | | | | (HCC) | +--------+ + + + + | 01/16/ | Telephone | Vascular Surgery | Bridget Milian DNP | Follow-up | | 2018 | | | | | +--------+ + + + + | 01/12/ | Telephone | Pulmonology | Elia, | Other (03/05 | | 2018 | | | Mary Pinto, | appointment) | | | | | MD | | +--------+ + + + + | 12/31/ | Refill | Cardiology | Cristian Mccoy, | Medication Refill | | 2018 | | | MD | | +--------+ + + + + | 12/02/ | Telephone | Vascular Surgery | Bridget Milian DNP | Follow-up | | 2019 | | | | | +--------+ + + + + from Last 3 Months Family History + + +------+ + | Medical History | Relation | Name | Comments | + + +------+ + | High blood pressure | Father | | | + + +------+ + | Hypertension | Father | | | + + +------+ + | Cancer | Mother | | breast cancer | + + +------+ + + +------+--------+ + | Relation | Name | Status | Comments | + +------+--------+ + | Brother | | Alive | | + +------+--------+ + | Daughter | | Alive | | + +------+--------+ + | Father | | | | + +------+--------+ + | Mother | | | | + +------+--------+ + | Son | | Alive | | + +------+--------+ + Social History + + + +--------+ [...] recent travel history available. | + + Last Filed Vital Signs + + + + + | Vital Sign | Reading | Time Taken | Comments | + + + + + | Blood Pressure | 171/73 | 01/19/2019 11:03 AM | | | | | PST | | + + + + + | Pulse | 56 | 01/19/2019 11:03 AM | | | | | PST | | + + + + + | Temperature | 36.3 C (97.4 F) | 11/03/2018 1:47 PM | | | | | PDT | | + + + + + | Respiratory Rate | 14 | 01/30/2018 10:48 AM | | | | | PST | | + + + + + | Oxygen Saturation | 98% | 01/19/2019 11:03 AM | | | | | PST | | + + + + + | Inhaled Oxygen | - | - | | | Concentration | | | | + + + + + | Weight | 72.9 kg (160 lb 11.2 | 11/12/2018 1:03 PM | | | | oz) | PDT | | + + + + + | Height | 172.7 cm (5' 8") | 11/12/2018 1:03 PM | | | | | PDT | | + + + + + | Body Mass Index | 24.43 | 11/12/2018 1:03 PM | | | | | PDT | | + + + + + Plan of Treatment +--------+---------+ + + + | Date | Type | Specialty | Care Team | Description | +--------+---------+ + + + | 03/05/ | Office | Pulmonology | Elia, | | | 2018 | Visit | | Mary Millie, | | | | | | MD [address] | | | | | | [place], | | | | | | [place] [address] | | | | | | [phone] | | | | | | | | +--------+---------+ + + + | 05/19/ | Office | Cardiology | Cristian Mccoy, | | | 2019 | Visit | | [address] | | | | | | [place] | | | | | | [address] | | | | | | | | +--------+---------+ + + + + + + + + | Health Maintenance | Due Date | Last Done | Comments | + + + + + | Vaccine: | | | | | Pneumococcal 65+ (1 | 9 | | | | of 2 - PCV13) | | | | + + + + + | Colorectal Cancer | | 03/18/2007 | | | Screening | 8 | | | | (Colonoscopy) | | | | + + + + + | Vaccine: Zoster (2 | | 11/29/2017 | | | of 2) | 8 | | | + + + + + | Adult Annual | | | | | Wellness Visit | 9 | | | + + + + + | Vaccine: | | 08/18/2018 | | | Dtap/Tdap/Td (2 - | 9 | | | | Td) | | | | + + + + + | Vaccine: Influenza | Completed | 12/02/2018, 11/21/2017, | | | | | 12/31/2016, Additional history | | | | | exists | | + + + + + | AAA Screening | Completed | 01/19/2019, 01/30/2018, | | | | | 07/31/2017, Additional history | | | | | exists | | + + + + + Procedures + +--------+ + + + | Procedure Name | Priori | Date/Time | Associated Diagnosis | Comments | | | ty | | | | + +--------+ + + + | VAS CAROTID DUPLEX | Routin | 01/19/2019 | Carotid stenosis, | Results for this | | BILATERAL | e | 11:15 AM | bilateral | procedure are in the | | | | PST | | results section. | + +--------+ + + + | VAS AORTA ILIAC | Routin | 01/19/2019 | Abdominal aortic | Results for this | | DUPLEX COMPLETE | e | 11:11 AM | aneurysm (AAA) | procedure are in the | | | | PST | without rupture | results section. | | | | | (HCC) | | + +--------+ + + + | LABS - EXTERNAL SCAN | | 11/24/2018 | | Results for this | | | | 12:00 AM | | procedure are in the | | | | PDT | | results section. | + +--------+ + + + from Last 3 Months Results VAS Carotid Duplex Bilateral (01/19/2019 11:15 AM PST) + + | Specimen | + + | | + + + + + | Impressions | Performed At | + + + | Extensive calcific plaque bilaterally without high-grade stenosis, | [facility] | | similar to prior examination In the left common carotid artery | | | there is dense calcific plaque versus an intimal flap which is not | | | flow limiting. The left vertebral artery is not visualized on | | | today's examination. Internal Carotid Artery Diagnostic Grades | | | Grade 1: Stenosis = 01-50% / PSV <125 cm/sec / EDV (cm/s)<40 cm/sec | | | (mild plaque) Grade 2: Stenosis = 01-50% / PSV <125 cm/sec / EDV | | | (cm/s)<40 cm/sec (moderate plaque) Grade 3: Stenosis = 50-69% / PSV | | | >125 cm/sec / EDV (cm/s)>40 cm/sec Grade 4: Stenosis = 70-95% / PSV | | | >230 cm/sec / EDV (cm/s)>100 cm/sec Grade 5: Stenosis = 90-95% / PSV | | | <125 cm/sec / EDV (cm/s)<40 cm/sec Grade 6: Stenosis Occluded | | | Society of Radiologists in Ultrasound (SRU) criteria applied for | | | internal carotid stenosis determination. Signed by: Yasmeen | | | Petar Mathew Sign Date/Time: 01/19/2019 1:36 PM | | + + + + + + | Narrative | Performed At | + + + | CAROTID DUPLEX ULTRASOUND CLINICAL INFORMATION: Carotid | [facility] | | artery stenosis. COMPARISON: US CAROTID DOPPLER BILATERAL | | | (07/04/2017); PROCEDURE: Evaluation of the extracranial carotid | | | and vertebral arteries with production of real-time images | | | integrating B-mode two-dimensional vascular structure, Doppler | | | spectral analysis and color-flow Doppler imaging. FINDINGS: Peak | | | systolic and diastolic velocities measured in the common and | | | internal carotid arteries. All velocities recorded in cm/sec: | | | Anterior Circulation: Right CCA: 65/10 ICA: 65/9 ECA: 78/9 | | | ICA/CCA: 1.0 Left CCA: 86/15 ICA: 90 /7 ECA: 133/0 ICA/CCA: | | | 1.0 Posterior Circulation: Right: Vertebral: 121/21 Antegrade | | | Left: Vertebral: Not visualized Ching scale images: There is | | | extensive calcified plaque with a possible intimal flap of the left | | | common carotid artery. | | + + + + + | Procedure Note | + + | Steven, Rad Results In - 01/19/2019 1:40 PM PST | | CAROTID DUPLEX ULTRASOUND | | | | CLINICAL INFORMATION: | | Carotid artery stenosis. | | | | COMPARISON: | | US CAROTID DOPPLER BILATERAL (07/04/2017); | | | | PROCEDURE: | | Evaluation of the extracranial carotid and vertebral arteries with | | production of real-time images integrating B-mode two-dimensional | | vascular structure, Doppler spectral analysis and color-flow Doppler | | imaging. | | | | FINDINGS: | | Peak systolic and diastolic velocities measured in the common and | | internal carotid arteries. All velocities recorded in cm/sec: | | | | Anterior Circulation: | | | | Right | | CCA: 65/10 | | ICA: 65/9 | | ECA: 78/9 | | ICA/CCA: 1.0 | | | | Left | | CCA: 86/15 | | ICA: 90 /7 | | ECA: 133/0 | | ICA/CCA: 1.0 | | | | Posterior Circulation: | | | | Right: | | Vertebral: 121/21 Antegrade | | | | Left: | | Vertebral: Not visualized | | | | Ching scale images: There is extensive calcified plaque with a possible | | intimal flap of the left common carotid artery. | | | | IMPRESSION: | | Extensive calcific plaque bilaterally without high-grade stenosis, | | similar to prior examination | | | | In the left common carotid artery there is dense calcific plaque versus | | an intimal flap which is not flow limiting. | | | | The left vertebral artery is not visualized on today's examination. | | | | Internal Carotid Artery Diagnostic Grades | | | | Grade 1: Stenosis = 01-50% / PSV <125 cm/sec / EDV (cm/s)<40 cm/sec | | (mild plaque) | | Grade 2: Stenosis = 01-50% / PSV <125 cm/sec / EDV (cm/s)<40 cm/sec | | (moderate plaque) | | Grade 3: Stenosis = 50-69% / PSV >125 cm/sec / EDV (cm/s)>40 cm/sec | | Grade 4: Stenosis = 70-95% / PSV >230 cm/sec / EDV (cm/s)>100 cm/sec | | Grade 5: Stenosis = 90-95% / PSV <125 cm/sec / EDV (cm/s)<40 cm/sec | | Grade 6: Stenosis Occluded | | | | Society of Radiologists in Ultrasound (SRU) criteria applied for | | internal carotid stenosis determination. | | | | | | | | Signed by: Priyanka Arana Matthew | | Sign Date/Time: 01/19/2019 1:36 PM | + + + +---------+ + + | Performing | Address | City/State/Zipcode | Phone Number | | Organization | | | | + +---------+ + + | [facility] | | | | + +---------+ + + VAS Aorta Iliac Duplex Complete (01/19/2019 11:11 AM PST) + + | Specimen | + + | | + + + + + | Impressions | Performed At | + + + | 4.9 cm infrarenal abdominal aortic aneurysm unchanged when compared | [facility] | | to the CT angiogram of 07/31/2017. Signed by: Priyanka Arana, | | | Petar Sign Date/Time: 01/19/2019 1:07 PM | | + + + + + + | Narrative | Performed At | + + + | ABDOMINAL AORTA DUPLEX SCAN CLINICAL INFORMATION: Abdominal | [facility] | | aorta aneurysm surveillance. COMPARISON: CL US GUIDANCE VASCULAR | | | ACCESS (10/24/2017); CL CORONARY ANGIO WITH GRAFTS (10/24/2017); CTA | | | ABDOMEN AND PELVIS W WO CONTRAST (07/31/2017); ECHO CARDIAC ADULT | | | COMPLETE (10/24/2017); XR SWALLOWING FUNCTION VIDEO (10/24/2017); CT | | | CHEST WO CONTRAST (10/24/2017); XR CHEST 2 VIEW (10/24/2017); XR CHEST 2 | | | VIEW (10/23/2017); CT HEAD WO CONTRAST (10/23/2017); NM MYOCARDIAL | | | PERFUSION SPECT - STRESS ONLY (10/14/2017); US CAROTID DOPPLER | | | BILATERAL (07/04/2017); MRI CERVICAL SPINE WO CONTRAST (04/12/2017); | | | PROCEDURE: Evaluation of the aorta and iliac vessels. FINDINGS: | | | The study is technically difficult due to overlying bowel gas. | | | There is an infrarenal abdominal aortic aneurysm Proximal aorta: | | | 2.8 cm AP x 2.7 cm transverse Mid aorta: 3.4 cm AP x 3.3 cm | | | transverse Distal aorta: 4.9 cm AP x 4.7 cm transverse Right common | | | iliac artery: 1.3 cm AP x 1.4 cm transverse Left common iliac artery: | | | 1.4 cm AP x 1.3 cm transverse | | + + + + + | Procedure Note | + + | Steven, Rad Results In - 01/19/2019 1:10 PM PST | | ABDOMINAL AORTA DUPLEX SCAN | | | | CLINICAL INFORMATION: | | Abdominal aorta aneurysm surveillance. | | | | COMPARISON: | | CL US GUIDANCE VASCULAR ACCESS (10/24/2017); CL CORONARY ANGIO WITH | | GRAFTS (10/24/2017); CTA ABDOMEN AND PELVIS W WO CONTRAST (07/31/2017); | | ECHO CARDIAC ADULT COMPLETE (10/24/2017); XR SWALLOWING FUNCTION VIDEO | | (10/24/2017); CT CHEST WO CONTRAST (10/24/2017); XR CHEST 2 VIEW | | (10/24/2017); XR CHEST 2 VIEW (10/23/2017); CT HEAD WO CONTRAST (10/23/2017); | | NM MYOCARDIAL PERFUSION SPECT - STRESS ONLY (10/14/2017); US CAROTID | | DOPPLER BILATERAL (07/04/2017); MRI CERVICAL SPINE WO CONTRAST | | (04/12/2017); | | | | PROCEDURE: | | Evaluation of the aorta and iliac vessels. | | | | FINDINGS: | | The study is technically difficult due to overlying bowel gas. There | | is an infrarenal abdominal aortic aneurysm | | Proximal aorta: 2.8 cm AP x 2.7 cm transverse | | Mid aorta: 3.4 cm AP x 3.3 cm transverse | | Distal aorta: 4.9 cm AP x 4.7 cm transverse | | Right common iliac artery: 1.3 cm AP x 1.4 cm transverse | | Left common iliac artery: 1.4 cm AP x 1.3 cm transverse | | | | | | IMPRESSION: | | 4.9 cm infrarenal abdominal aortic aneurysm unchanged when compared to | | the CT angiogram of 07/31/2017. | | | | | | | | Signed by: Priyanka Arana Matthew | | Sign Date/Time: 01/19/2019 1:07 PM | + + + +---------+ + + | Performing | Address | City/State/Zipcode | Phone Number | | Organization | | | | + +---------+ + + | [facility] | | | | + +---------+ + + LABS - EXTERNAL SCAN (11/24/2018 12:00 AM PDT) + + + | Narrative | Performed At | + + + | Ordered by an | | | unspecified provider. | | + + + from Last 3 Months Insurance + +--------+ +--------+ +---------+--------+ | Payer | Benefi | Subscriber | Effect | Phone | Address | Type | | | t Plan | ID | nafisa | | | | | | / | | Dates | | | | | | Group | | | | | | + +--------+ +--------+ +---------+--------+ | MEDICARE | MEDICA | [id number] | | [phone] | | Medica | | | RE | | 009-Pr | 5 | | re | | | PART A | | esent | | | | | | AND B | | | | | | + +--------+ +--------+ +---------+--------+ | MEDICARE | MEDICA | [id number] | | [phone] | | Medica | | | RE | | 009-Pr | 5 | | re | | | PART A | | esent | | | | | | AND B | | | | | | + +--------+ +--------+ +---------+--------+ | AARP | AARP | [id number] | 06/17/19 | [phone] | | Indemn | | | MDCR | | 12-Pre | 0 | | ity | | | SUPPL | | sent | | | | + +--------+ +--------+ +---------+--------+ | AARP | AARP | [id number] | 03/18/19 | [phone] | | Indemn | | | MDCR | | 19-Pre | 0 | | ity | | | SUPPL | | sent | | | | + +--------+ +--------+ +---------+--------+ + +--------+ +--------+ + + | Guarantor Name | Accoun | Relation to | Date | Phone | Billing Address | | | t Type | Patient | of | | | | | | | | | | + +--------+ +--------+ + + | German Rose | Person | Self [birth year] | [address] | | | al/Fam | | 1945 | [phone] | [place], [place] | | | [place] | | | [place] (Home) | [phone] | + +--------+ +--------+ + + | German Rose | Person | Self [birth year] | [address] | | | al/Fam | | 1945 | [phone] | [place], [place] | | | [place] | | | 5 (Home) | [phone] | + +--------+ +--------+ + + Advance Directives + + + + + | Type | Date Recorded | Patient | Explanation | | | | Brass Burnisher | | + + + + + | Power of | | | | | Analysis Engineer | | | | + + + + + | Advance | 08/12/2014 8:35 | | | | Directive | AM | | | + + + + +
--- OUTSIDE RECORDS SUMMARY | ~2019-02-20 | XMS | Encounter Summary ---
Demographics + + + | Address | [address] | | | [place] [address] | + + + | Home Phone | | + + + | Preferred Language | Unknown | + + + | Marital Status | | + + + | Lutheran Affiliation | LUT | + + + | Race | White | + + + | Ethnic Group | Not or | + + + Author + + + | Author | [facility] | + + + | Organization | [facility] | + + + | Address | Unknown | + + + | Phone | Unavailable | + + + Support + + +---------+ + | Name | Relationship | Address | Phone | + + +---------+ + | Blossom Rose | ECON | Unknown | | + + +---------+ + Care Team Providers + +------+ + | Care Tug Master Name | Role | Phone | + [...] [facility] | | | | | | [place], [place] | Mailcode: | | | | | | [address] | [address] | | | | | | | [facility] | | | | | | | [facility] | | | | | | | [place], [place] | | | | | | | [address] | | | | | | | Phone: | | | | | | | [phone] | | | | | | | Fax: | | | | | | | [phone] | +--------+--------+ + + + + Encounter Details +--------+---------+ + + + | Date | Type | Department | Care Team | Description | +--------+---------+ + + + | 11/30/ | Office | Otolaryngology | Alexei De | Pharyngeal dysphagia | | 2009 | Visit | Laryngology Services | MD Timbo [address] | (Primary Dx); | | | | at [facility] [address] | [address] | Glottic stenosis; | | | | [address] | [place], [place] | Esophageal stenosis; | | | | Mailcode: [address] | [address] | Larynx edema | | | | [facility] | [phone] | | | | | [place], [place] | | | | | | [address] | | | | | | [phone] | | | +--------+---------+ + + + [...] + + + + | Weight | 97.5 kg (215 lb) | 11/30/2009 11:54 AM | | | | | PDT | | + + + + + | Height | - | - | | + + + + + | Body Mass Index | - | - | | + + + + + documented in this encounter Progress Notes Alexei De MD - 12/01/2009 2:34 PM PDT PATIENT NAME: German Rose MR#: [id number] : 1945 REFERRING PROVIDER: RICKEY GAGNON Otolaryngology [address] [place] [address] PRIMARY CARE PROVIDER: Maycol Knutson MD CLINIC: [facility] REASON FOR FOLLOW-UP:Chief Complaint Patient presents with Follow-up visit HPI: German Rose is a 64 y.o. male who was last seen at the [facility] for follow up of swallowing complaints. I recommended a modified barium sw allow. He returns today noting that he feels that his swallowing is about the same. He is still v karlie careful with particulates and avoids them often. He does cough on liquids occasionally and particulates. He thinks that his voice is about the same. He has not noted any otalgia . He denies odynophagia. He has not noted any hemoptysis. He does have some dyspnea on ex ertion. He has noted noisy breathing on deep inspiration. This has not worsened and is onl y noted with vigorous activity. He does note problems with nasal allergy symptoms, includi ng itchy eyes, rhinorrhea and sneezing. He uses Claritin and Sudafed for this. He is not sm oking. He is maintained on a proton-pump inhibitor. He notes no symptoms of reflux, including hea rtburn, indigestion, acidic taste or belching while on proton pump inhibitor therapy. VOCAL DEMANDS: Unchanged from previous visit. 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 CYANOCOBALAMIN (VITAMIN B-12 INJ) by Injection route every thirty days. gabapentin 300 mg Oral Tablet Take 300 mg by mouth three times daily. LANSOPRAZOLE (PREVACID ORAL) Take by mouth. LORATADINE (CLARITIN ORAL) Take by mouth. metoclopramide (REGLAN) 5 mg Oral Tablet Take 5 mg by mouth every six hours as needed. NAPROXEN SODIUM/P-EPHED HCL (SUDAFED 12 HR SINUS-PAIN ORAL) Take by mouth. sertraline (ZOLOFT) 50 mg Oral Tablet Take 50 mg by mouth once daily. tamsulosin (FLOMAX) 0.4 mg Oral Capsule, Sust. Release 24 hr Take 0.4 mg by mouth once daily. TESTOSTERONE IM Inject into the muscle (IM). VICODIN ORAL None Entered LAST WEIGHTS: Wt Readings from Last 3 Encounters: 11/30/2009 97.523 kg (215 lb) 09/14/2009 85.503 kg (188 lb 8 oz) 12/18/2006 92.534 kg (204 lb) EXAMINATION: Wt 97.523 kg (215 lb) Gen: He is a 64 y.o. male. He is awake, alert and comfortable with the examination. H is weight is appropriate. Ears: The pinnae are [...] show no lesions or masses within the pa rotid or submandibular glands bilaterally. There is no obvious obstruction of Stensen's or [place]'s ducts bilaterally. Oropharynx: Normal lips and oral competence are noted. The dentition is fair. The muc max is dry and pale, but shows no lesions or masses. The tonsils are small or absent and t he fossae show no lesions. Bimanual palpation of the gigivolabial sulcus, lingual sulcus, tonsillar pillars, palate and base of tongue did not demonstrate any concerning lesions or m asses. Neck: The neck has well healed anterior [...] There is 3+ roughness, 1+ breathiness, and 2+ tightness appreciated. T here is no tremor noted with sustained vowel phonation. I am unable to detect voice breaks. Glottal beth is not detected and there is no diplophonia noted. Articulation is normal. LARYNGOSCOPY: Indirect laryngoscopy was performed using a 90 degree Mejia kavitha telescope and distal-chip Olympus flexible videolaryngoscope following the topical nasal application of oxymetazoline and pontocaine. This was performed because the patient's gag reflex preclu ded adequate transoral indirect laryngoscopy. This demonstrates a clear vallecula and paulino p epiglottis. The right arytenoid is partially present and mobile with mucosal redundancy. There is soft tissue where the right hemilarynx would be. This is benign and mucosalized. The true vocal folds are absent. The left false vocal fold is at least partially present. The left arytenoid is present, but fixed. Both aryepiglottic folds are shortened. The base of tongue is clear. The subglottic airway is slightly narrowed, but adequate. It is scarred anteriorly without mass. MODIFIED BARIUM SWALLOW: a modified barium swallow demonstrates: Examination: Modified barium swallowing study. Technique and findings: The study was performed in conjunction with the [facility] speech pathologist. The patient drank a variety of barium impregnated liquids and solids and swallowed a barium tablet using fluoroscopic observation. There was no delay in initiating the primary propulsive wave on swallowing. The patient swallowed thin barium without difficulty with no obstruction of flow. With thicker texture barium liquids, there was mild partial delay and about the C6 level associated with a mild short segment of circumferential narrowing of the proximal esophagus at this level but no sign of extravasation. There is no evidence for obstruction of flow of solid materials. The ingested barium tablet passed through the oropharynx, hypopharynx and thoracic esophagus but there was delay in passage at the gastroesophageal junction. See formal esophagram report. Impression: No sign of extravasation or aspiration. Short segment of narrowing of the proximal esophagus at the C6 level perhaps accounting for some retropulsion of thicker barium liquids through this segment. Delay in passage of barium tablet at the gastroesophageal junction. I have personally viewed this procedure/exam and reviewed this report. Author: HETAL HUSSEIN M.D. Reviewer: HETAL HUSSEIN M.D. I have reviewed these images and agree with the radiologist's findings. Minimal cervical e sophageal narrowing. --JSS ------- ASSESSMENT: Mr. Rose appears to suffer from dysphonia, dysphagia and dyspnea associated wi th prior vertical hemilaryngectomy with reconstruction and radiation therapy which has not c hanged significantly since I last saw him or since his last modified barium swallow. 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 It appears safe an d effective. I don't think that his esophageal stenosis requires dilation at this time, but may in the future. His airway certainly appears adequate and I do not think that his dyspn ea on exertion is secondary to laryngeal stenosis. Finally, his voice is not great, but I d on't think that there is anything I can do to improve this. He understands and agrees. PLAN: Continued periodic observation. I will see him back in approximately 6 months, or sooner if symptoms worsen. I recommended transnasal esophagoscopy at that time to look at t he cervical esophagus. He understands and agrees. Alexei De M.D. Power Superintendent Laryngology and Head & Neck Surgery BrittanyCece - 11/30/2009 11:59 AM PDT Additional staff support provided to the patient during this encounter included: Health maintanance reviewed and documented. Medication(s) reviewed this encounter: Outpatient encounter prescriptions as of 11/30/2009 Medication Sig Dispense Refill ACYCLOVIR ORAL Take by mouth as needed. Amlodipine-Atorvastatin (CADUET) 10-10 mg Oral Tablet Take by mouth. CYANOCOBALAMIN (VITAMIN B-12 INJ) by Injection route every thirty days. gabapentin 300 mg Oral Tablet Take 300 mg by mouth three times daily. LANSOPRAZOLE (PREVACID ORAL) Take by mouth. LORATADINE (CLARITIN ORAL) Take by mouth. metoclopramide (REGLAN) 5 mg Oral Tablet Take 5 mg by mouth every six hours as needed. NAPROXEN SODIUM/P-EPHED HCL (SUDAFED 12 HR SINUS-PAIN ORAL) Take by mouth. DISCONTD: pregabalin (LYRICA) 50 mg Oral Capsule Take by mouth three times daily. Max: 600 mg/day sertraline (ZOLOFT) 50 mg Oral Tablet Take 50 mg by mouth once daily. tamsulosin (FLOMAX) 0.4 mg Oral Capsule, Sust. Release 24 hr Take 0.4 mg by mouth once daily. TESTOSTERONE IM Inject into the muscle (IM). VICODIN ORAL None Entered documented in this encoun ter Plan of Treatment Not on filedocumented as of this encounter Procedures + +--------+ + + + | Procedure Name | Priori | Date/Time | Associated Diagnosis | Comments | | | ty | | | | + +--------+ + + + | OK | Routin | 12/01/2009 | Glottic stenosis | | | LARYNGOSCOPY,FLEXIBL | e | 2:33 PM | Pharyngeal dysphagia | | | E, DIAGNOSTIC | | PDT | Larynx edema | | + +--------+ + + + documented in this encounter Visit Diagnoses + + | Diagnosis | + + | Pharyngeal dysphagia - Primary Dysphagia, pharyngeal phase | + + | Glottic stenosis Stenosis of larynx | + + | Esophageal stenosis Stricture and stenosis of esophagus | + + | Larynx edema Edema of larynx | + + documented in this encounter"
--- OUTSIDE RECORDS SUMMARY | ~2019-02-20 | XMS | Encounter Summary ---
Demographics + + + | Address | [address] | | | [place] [address] | + + + | Home Phone | | + + + | Preferred Language | Unknown | + + + | Marital Status | | + + + | Holiness Affiliation | 1028 | + + + | Race | Unknown | + + + | Ethnic Group | Unknown | + + + Author + + + | Author | [facility] | | | and [place] | + + + | Organization | [facility] | | | and [...] [place] | | | | | [address] | | + + + + + Care Team Providers + +------+ + | Care Piano Refinisher Name | Role | Phone | + +------+ + PCP | Unavailable | + +------+ + Encounter Details +--------+ + + + + | Date | Type | Department | Care Team | Description | +--------+ + + + + | 09/26/ | Hospital | [facility] | Zaheer Webster MD | GASTROINTEST HEMORR | | 2003 - | Encounter | [facility] | [address] | NOS | | | | CLINICAL DECISION | [place] [address] | | | 09/29/ | | [address] | [phone] | | | 2003 | | [place], [place] | | | | | | [address] | | | | | | [phone] | | | +--------+ + + + [...] | | 2018 | Visit | | Maryvi Pinto, | | | | | | [address] | | | | | | [place], | | | | | | [place] [address] | | | | | | [phone] | | | | | | | | +--------+---------+ + + + | 05/19/ | Office | Cardiology | Cristian Mccoy, | | | 2019 | Visit | | [address] | | | | | | [place] | | | | | | [address] | | | | | | | | +--------+---------+ + + + documented as of this encounter Visit Diagnoses + + | Diagnosis | + + | Hemorrhage of gastrointestinal tract, unspecified | + + documented in this encounter"
--- OUTSIDE RECORDS SUMMARY | ~2019-02-20 | XMS | Encounter Summary ---
Demographics + + + | Address | [address] | | | [place] [address] | + + + | Home Phone [...] Team Providers + +------+ + | Care Corporate Security Officer Name | Role | Phone | + +------+ + | Maycol Knutson MD | PCP | | + +------+ + Encounter Details +--------+ + + + + | Date | Type | Department | Care Team | Description | +--------+ + + + + | // | Procedure - | | Record, Operation | Operative Report | | 1998 | | | | | | | [...] + + | OPERATION RECORD | | 08/03/1998 | | Results for this | | | | | | procedure are in the | | | | | | results section. | + +--------+ + + + documented in this encounter Results OPERATION RECORD (08/03/1998) + + | Transcriptions | + + | Interface, Card Tape Converter Operator In - 03/08/2006 5:03 AM PST | | [place] [address] | | [place], [place] [address] | | [facility] RECORDMed Rec No.: | | [id number] Date: 08/03/1998Name: Jose Martin Rose SURGEON:Dylan Arthur, | | PriyankaRFID DEVELOPER(S): Carlos Butler M.D.PREOPERATIVE DIAGNOSIS(ES):Laryngeal | | stenosis.POSTOPERATIVE DIAGNOSIS(ES):Laryngeal stenosis.OPERATIONS | | PERFORMED:Laryngoscopy with laryngeal dilation.SPECIMEN(S) | | REMOVED:None.ANESTHESIA:General.COMPLICATIONS:None.INDICATIONS:The patient is status | | post right vertical hemilaryngectomy for laryngealcancer. He underwent postoperative | | radiation therapy and has developeddifficulty breathing secondary to laryngeal | | stenosis.FINDINGS:PROCEDURE:The patient was brought to the Operating Room and placed | | on the operatingroom table in a supine position. After adequate IV sedation was | | given adirect laryngoscopy was performed and the patient was placed in suspension.The | | patient was then jet ventilated. At that point serial laryngealdilation was | | performed. The largest dilator was 32 [place] and this waseasily passed. An | | endoscope was then passed subglottically and the patientwas seen to be widely patent. | | At this point the patient was taken out ofsuspension and endotracheally intubated. | | The patient was then awakened,extubated, and brought to the Recovery Room in | | satisfactory condition.Dr. Dylan Arthur was present for the entire procedure.Carlos Chun. | | Teodoro Butler M.D.DMK:xt7D: 08/03/1998T: 08/04/1998#[id number]: | |Laryngeal stenosis. | | | |OPERATIONS PERFORMED: | |Laryngoscopy with laryngeal dilation. | | | |SPECIMEN(S) REMOVED: | |None. | | | |ANESTHESIA: | |General. | | | |COMPLICATIONS: | |None. | | | |INDICATIONS: | |The patient is status post right vertical hemilaryngectomy for laryngeal | |cancer. He underwent postoperative radiation therapy and has developed | |difficulty breathing secondary to laryngeal stenosis. | | | |FINDINGS: | | | |PROCEDURE: | |The patient was brought to the Operating Room and placed on the operating | |room table in a supine position. After adequate IV sedation was given a | |direct laryngoscopy was performed and the patient was placed in suspension. | |The patient was then jet ventilated. At that point serial laryngeal | |dilation was performed. The largest dilator was 32 [place] and this was | |easily passed. An endoscope was then passed subglottically and the patient | |was seen to be widely patent. At this point the patient was taken out of | |suspension and endotracheally intubated. The patient was then awakened, | |extubated, and brought to the Recovery Room in satisfactory condition. | | | |Dr. Dylan Arthur was present for the entire procedure. | | | | | | | |Carlos Butler M.D. | | | | | | | |Dylan Arthur M.D. | | | |DMK:[id number] | | | | | | | |#[id number] | | | | | |[id number] | |CC: | + + documented in this encounter Visit Diagnoses Not on filedocumented in this encounter"
--- OUTSIDE RECORDS SUMMARY | ~2019-02-20 | XMS | Encounter Summary ---
Demographics + + + | Address | [address] | | | [place] [address] | + + + | Home Phone | | + + + | Preferred Language | Unknown | + + + | Marital Status | | + + + | Episcopalian Affiliation | 1028 | + + + | Race | Unknown | + + + | Ethnic Group | Unknown | + + + Author + + + | Author | [facility] | | | and [place] | + + + | Organization | [facility] | | | and [...] [place] | | | | | [address] | | + + + + + Care Team Providers + +------+ + | Care Recreation Instructor Name | Role | Phone | + +------+ + | Maycol Knutson MD | PCP | | + +------+ + Encounter Details +--------+ + + + + | Date | Type | Department | Care Team | Description | +--------+ + + + + | 05/16/ | Hospital | [facility] | Conversion | Pain | | 2018 | Encounter | CONVERSION [address] | Transaction, | | | | | [address] | Provider Unknown | | | | | [place], [place] | [phone] | | | | | [address] | | | | | | [phone] | | | +--------+ + + + + Social History + + + +--------+ + | Tobacco Use | Types | Packs/Day | Years | Date | | | | | Used | | + + + +--------+ + | Former Smoker | Cigarettes | 1.3 | 35 | Quit: 12/16/1995 | + [...] + + documented as of this encounter Medications at Time of Discharge + + + +---------+ + + | Medication | Sig | Dispensed | Refills | Start | End Date | | | | | | Date | | + + + +---------+ + + | acyclovir | Apply topically | | 0 | | | | (ZOVIRAX) 5% | every 3 hours. | | | | | | ointment | | | | | | + + + +---------+ + + | albuterol (PROAIR | Inhale 2 puffs into | | 0 | | | | HFA) 90 mcg/puff | the lungs every 6 | | | | | | inhaler | hours as needed for | | | | | | | Wheezing. | | | | | + + + +---------+ + + | digoxin (LANOXIN) | Take 125 mcg by | | 0 | | | | 250 mcg tablet | mouth Daily. 03/19 | | | | | | | capsule daily | | | | | + + + +---------+ + + | ferrous sulfate | Take 325 mg by mouth | | 0 | 11/30/19 | | | 325 mg tablet | 3 times daily. | | | 12 | | + + + +---------+ + + | fluticasone | one spray in each | | 0 | 11/30/19 | | | (FLONASE) 50 | nostril daily as | | | 12 | | | mcg/nasal spray | needed | | | | | + + + +---------+ + + | | Inhale 1 puff into | | 0 | | | | fluticasone-salmeter | the lungs Twice | | | | | | ol (ADVAIR) 500-50 | Daily. | | | | | | mcg/puff diskus | | | | | | | inhaler | | | | | | + + + +---------+ + + | folic acid 1 mg | Take 1 mg by mouth | | 0 | | | | tablet | Daily. | | | | | + + + +---------+ + + | furosemide (LASIX) | Take 40 mg by mouth | | 0 | | | | 40 mg tablet | Daily. | | | | | + + + +---------+ + + | guaiFENesin | Take 1,200 mg by | | 0 | | | | (MUCINEX) 600 mg 12 | mouth 2 times daily. | | | | | | hr tablet | | | | | | + + + +---------+ + + | levothyroxine | Take 75 mcg by mouth | | 0 | 11/30/19 | | | (LEVOTHROID) 75 MCG | Daily. | | | 12 | | | tablet | | | | | | + + + +---------+ + + | metoclopramide | Take 10 mg by mouth | | 0 | 11/30/19 | | | (REGLAN) 10 mg | 4 times daily as | | | 12 | | | tablet | needed. | | | | | + + + +---------+ + + | | Apply topically 2 | | 0 | | | | nystatin-triamcinolo | times daily. | | | | | | ne (MYCOLOG II) | | | | | | | cream | | | | | | + + + +---------+ + + | ofloxacin | | | 0 | 06/25/19 | | | (OCUFLOX) 0.3% | | | | 18 | | | ophthalmic solution | | | | | | + + + +---------+ + + | omeprazole | Take 20 mg by mouth | | 0 | 11/30/19 | | | (PRILOSEC) 20 mg | 2 times daily. | | | 12 | | | capsule | | | | | | + + + +---------+ + + | potassium citrate | Take 10 mEq by mouth | | 0 | | | | (UROCIT-K) 10 mEq SR | 2 times daily. | | | | | | tablet | | | | | | + + + +---------+ + + | predniSONE | Take 10 mg by mouth | | 0 | | | | (DELTASONE) 5 mg | Daily. | | | | | | tablet | | | | | | + + + +---------+ + + | tamsulosin | Take 0.4 mg by mouth | | 0 | 11/30/19 | | | (FLOMAX) 0.4 mg CAPS | 2 times daily. | | | 12 | | + + + +---------+ + + | acyclovir | Take 400 mg by mouth | | 0 | 11/30/19 | | | (ZOVIRAX) 400 MG | 3 times daily as | | | 12 | 9 | | tablet | needed. | | | | | + + + +---------+ + + | Cholecalciferol | Take 2,000 Units by | | 0 | 11/30/19 | | | (VITAMIN D3) 2000 | mouth Daily. | | | 12 | 9 | | UNITS CAPS | | | | | | + + + +---------+ + + | cyanocobalamin | injected | | 0 | 11/30/19 | | | (VITAMIN B-12) 1,000 | intramuscularly once | | | 12 | 9 | | mcg/mL injection | a month | | | | | + + + +---------+ + + | diltiazem | Take 120 mg by mouth | | 0 | | | | (DILT-XR) 120 mg 24 | Daily. | | | | 9 | | hr capsule | | | | | | + + + +---------+ + + | loratadine | Take 10 mg by mouth | | 0 | | | | (CLARITIN) 10 mg | Daily. | | | | 9 | | tablet | | | | | | + + + +---------+ + + | losartan (COZAAR) | Take 100 mg by mouth | | 0 | | | | 100 MG tablet | Daily. 1/2 daily | | | | 9 | + + + +---------+ + + | methotrexate 2.5 | Take 15 mg by mouth | | 0 | | | | mg tablet | Once a week. | | | | 9 | + + + +---------+ + + | | Take 1 tablet by | | 0 | | | | oxyCODONE-acetaminop | mouth every 4 hours | | | | 9 | | hen (PERCOCET) 5-325 | as needed for Pain. | | | | | | mg per tablet | | | | | | + + + +---------+ + + | pseudoePHEDrine | Take 30 mg by mouth | | 0 | | | | (SUDOGEST) 30 mg | every 4 hours as | | | | 9 | | tablet | needed for | | | | | | | Congestion. | | | | | + + + +---------+ + + | rivaroxaban | Take 20 mg by mouth | | 0 | | | | (XARELTO) 20 mg | Daily (with dinner). | | | | 9 | | tablet | | | | | | + + + +---------+ + + | sertraline | 2 tablets daily | | 0 | 11/30/19 | | | (ZOLOFT) 100 mg | | | | 12 | 9 | | tablet | | | | | | + + + +---------+ + + documented as of this encounter Plan of Treatment +--------+---------+ + + + | Date | Type | Specialty | Care Team | Description | +--------+---------+ + + + | 03/05/ | Office | Pulmonology | Elia, | | | 2019 | Visit | | Mary Pinto, | | | | | | MD [address] | | | | | | [place], | | | | | | [place] [address] | | | | | | [phone] | | | | | | | | +--------+---------+ + + + | 05/19/ | Office | Cardiology | Cristian Mccoy, | | | 2019 | Visit | | MD [address] | | | | | | [place] | | | | | | [address] | | | | | | | | +--------+---------+ + + + documented as of this encounter Procedures + +--------+ + + + | Procedure Name | Priori | Date/Time | Associated Diagnosis | Comments | | | ty | | | | + +--------+ + + + | CT ANGIOGRAM ABDOMEN | Routin | 07/31/2017 | | Results for this | | PELVIS W CONTRAST | e | 9:20 AM | | procedure are in the | | | | PDT | | results section. | + +--------+ + + + documented in this encounter Results CT Angiogram Abdomen Pelvis w Contrast (07/31/2017 9:20 AM PDT) + + | Specimen | + + | | + + + + + | Narrative | Performed At | + + + | This is a non-reportable procedure without a radiologist report and | | | is used for image storage only | | + + + + + | Procedure Note | + + | Diogo Harris - 10/29/2018 4:21 AM PDT This is a non-reportable procedure | | without a radiologist report and isused for image storage only | + + documented in this encounter Visit Diagnoses + + | Diagnosis | + + | Pain Generalized pain | + + documented in this encounter"
--- OUTSIDE RECORDS SUMMARY | ~2019-02-20 | XMS | Encounter Summary ---
Demographics + + + | Address | [address] | | | [place] [address] | + + + | Home Phone | | + + + | Preferred Language | Unknown | + + + | Marital Status | | + + + | Baptism Affiliation | LUT | + + + | Race | White | + + + | Ethnic Group | Not or | + + + Author + + + | Author | [facility] | + + + | Organization | [facility] | + + + | Address | Unknown | + + + | Phone | Unavailable | + + + Support + + +---------+ + | Name | Relationship | Address | Phone | + + +---------+ + | Blossom Rose | ECON | Unknown | | + + +---------+ + Care Team Providers + +------+ + | Care Dynamometer Repairer Name | Role | Phone | + +------+ + PCP | Unavailable | + +------+ + Encounter Details +--------+ + + + + | Date | Type | Department | Care Team | Description | +--------+ + + + + | 04/25/ | Results | Otolaryngology | Dylan Arthur MD | | | 1999 | Only | Head and Neck | | | | | | Surgery Services at | | | | | | [facility] [address] [facility] | | | | | | [address] | | | | | | Mailcode: PV01 | | | | | | [facility] | | | | | | [place], [place] | | | | | | [address] | | | | | | [phone] | | | +--------+ + + + [...] | + +--------+ + + + | X-RAY CHEST 2 VIEW | Priori | 04/25/1999 | | Results for this | | | ty | 4:00 PM | | procedure are in the | | | | PST | | results section. | + +--------+ + + + | URINE, MICROSCOPIC | Routin | 04/25/1999 | | Results for this | | EXAM | e | 3:15 PM | | procedure are in the | | | | PST | | results section. | + +--------+ + + + documented in this encounter Results CHEST 2 VIEW (04/25/1999 4:00 PM PST) + + + + + + | Component | Value | Ref Range | Performed | Pathologist | | | | | At | Signature | + + + + + + | CHEST, 2 | Radiologist 1: [facility], | | | | | VIEWS [place] | Aurea LYNN M.D.TWO | | | | | STEREO | VIEWS OF THE CHEST: | | | | | | 04/25/99 at 1600 | | | | | | hours. Dictated | | | | | | 04/25/99. FINDINGS: | | | | | | The patient has had a | | | | | | median sternotomy. | | | | | | Thelungs are clear. | | | | | | The aorta is tortuous | | | | | | and ectatic. The heart | | | | | | ismildly enlarged. | | | | | | There is degenerative | | | | | | disease of the thoracic | | | | | | spine. IMPRESSION: No | | | | | | change from 07/23/98 in | | | | | | cardiomegaly. The | | | | | | lungs are clear. END | | | | | | OF IMPRESSION: | | | | + + + + + + + + | Specimen | + + | | + + + +---------+ + + | Performing | Address | City/State/Zipcode | Phone Number | | Organization | | | | + +---------+ + + | [facility] DEPARTMENT OF | | | | | RADIOLOGY | | | | + +---------+ + + URINE, MICROSCOPIC EXAM (04/25/1999 3:15 PM PST) + +-------+ + + + | Component | Value | Ref Range | Performed | Pathologist | | | | | At | Signature | + +-------+ + + + | RED CELLS | None | 0 - 3 /hpf | [facility] | | | | | | DEPARTMENT | | | | | | OF | | | | | | PATHOLOGY | | + +-------+ + + + | WHITE CELLS | 0-1 | 0 - 5 /hpf | [facility] | | | | | | DEPARTMENT | | | | | | OF | | | | | | PATHOLOGY | | + +-------+ + + + | BACTERIA | None | /hpf | [facility] | | | | | | DEPARTMENT | | | | | | OF | | | | | | PATHOLOGY | | + +-------+ + + + | HYALINE | None | 0 - 1 /lpf | [facility] | | | [facility] | | | DEPARTMENT | | | | | | OF | | | | | | PATHOLOGY | | + +-------+ + + + | GRANULAR | None | /lpf | [facility] | | | CASTS | | | DEPARTMENT | | | | | | OF | | | | | | PATHOLOGY | | + +-------+ + + + | CELLULAR | None | /lpf | [facility] | | | CASTS | | | DEPARTMENT | | | | | | OF | | | | | | PATHOLOGY | | + +-------+ + + + + + | Specimen | + + | | + + + + + + + | Performing | Address | City/State/Zipcode | Phone Number | | Organization | | | | + + + + + | [facility] DEPARTMENT OF | [address] | [place] [address] | | | PATHOLOGY | [address] | | | + + + + + | [facility] | [address] | [place] [address] | | | PATHOLOGY | DENISE CONNELLY | | | + + + + + documented in this encounter Visit Diagnoses Not on filedocumented in this encounter"
--- OUTSIDE RECORDS SUMMARY | ~2019-02-20 | XMS | Encounter Summary ---
Demographics + + + | Address | [address] | | | [place] [address] | + + + | Home Phone | | + + + | Preferred Language | Unknown | + + + | Marital Status | | + + + | Advent Affiliation | LUT | + + + | Race | White | + + + | Ethnic Group | Not or | + + + Author + + + | Author | [facility] | + + + | Organization | [facility] | + + + | Address | Unknown | + + + | Phone | Unavailable | + + + Support + + +---------+ + | Name | Relationship | Address | Phone | + + +---------+ + | Blossom Rose | ECON | Unknown | | + + +---------+ + Care Team Providers + +------+ + | Care Drum Sander Offbearer Name | Role | Phone | + +------+ + | Maycol Knutson MD | PCP | | + +------+ + Encounter Details +--------+ + + + + | Date | Type | Department | Care Team | Description | +--------+ + + + + | 12/04/ | Office | [facility] | Note, [...] as of this encounter Progress Notes Interface, Sound Ranging Crewmember In - 02/26/2006 5:02 AM PSTCLINIC DATE: 12/04/1998 OTOLARYNGOLOGY CLINIC SUBJECTIVE: German is seen back in followup. He is breathing better than he was before his nisin fundoplication and dilatation but still feels there is some limitation in his exercise tolerance which has precluded him from returning to work on a full-time basis. His voice remains stable. His swallowing remains stable and he really feels that overall his reflux situation has improved. PHYSICAL EXAMINATION: A flexible fiberoptic laryngoscopy is done. The previous inflammation of his larynx has more or less resolved itself. With this being gone, there is only a mild edema and one can now see that he has a mild posterior glottic stenosis with a webbed scar band in the posterior commissure that prevents his cords from fully abducting. The configuration of his anterior neocord is actually pretty good. There is some fullness of the false cord as one sees after vertical hemilaryngectomy but nothing that is suspicious for recurrence of disease. ASSESSMENT: Post pharynglottic stenosis. PLAN: He will continue to heal for another month from resolution of his gastroesophageal reflux. If he does not feel any better from an airway standpoint in a month, he will call and we will set him up for dilation possibly with laser lysis of his posterior commissure band at the same time. I will see him back in six weeks. Dylan Arthur M.D. Coal Washer Tender, Otolaryngology Head and Neck Surgery [facility] Cc: Rohan Barragan M.D. Coal Washer Tender General Surgery [id number] signed by Interface, Sound Ranging Crewmember In at 02/26/2006 5:02 AM PSTdocume nted in this encounter Plan of Treatment Not on filedocumented as of this encounter Visit Diagnoses Not on filedocumented in this encounter"
--- OUTSIDE RECORDS SUMMARY | ~2019-02-20 | XMS | Encounter Summary ---
Demographics + + + | Address | [address] | | | [place] [address] | + + + | Home Phone | | + + + | Preferred Language | Unknown | + + + | Marital Status | | + + + | Jehovah'S Witness Affiliation | LUT | + + + | Race | White | + + + | Ethnic Group | Not or | + + + Author + + + | Author | [facility] | + + + | Organization | [facility] | + + + | Address | Unknown | + + + | Phone | Unavailable | + + + Support + + +---------+ + | Name | Relationship | Address | Phone | + + +---------+ + | Blossom Rose | ECON | Unknown | | + + +---------+ + Care Team Providers + +------+ + | Care Formulation Scientist Name | Role | Phone | + [...] | | | | | [facility] [address] [facility] | | | | | | [address] | | | | | | Mailcode: [address] | | | | | | [facility] | | | | | | [place], [place] | | | | | | [address] | | | | | | [phone] | | | +--------+ + + + [...] | | + +---------+ + + | [facility] DEPARTMENT OF | | | | [...] DEPARTMENT OF | [address] | [place] [address] | | | PATHOLOGY | [address] | | | + + + + + | [facility] | [address] | [place] [address] | | | PATHOLOGY | DNEISE CONNELLY | | | + + + + + documented in this encounter Visit Diagnoses Not on filedocumented in this encounter"
--- OUTSIDE RECORDS SUMMARY | ~2019-02-20 | XMS | Encounter Summary ---
Demographics + + + | Address | [address] | | | [place] [address] | + + + | Home Phone | | + + + | Preferred Language | Unknown | + + + | Marital Status | | + + + | Buddhism Affiliation | 1028 | + + + | Race | Unknown | + + + | Ethnic Group | Unknown | + + + Author + + + | Author | [facility] | | | and [place] | + + + | Organization | [facility] | | [...] [place] | | | | | [address] | | + + + + + Care Team Providers + +------+ + | Care Legal Support Manager Name | Role | Phone | + +------+ + | Maycol Knutson MD | PCP | | + +------+ + Reason for Visit Evaluate & Treat (Routine) +--------+ + + + + + | Status | Reason | Specialty | Diagnoses / | Referred By | Referred To | | | | | Procedures | Contact | Contact | +--------+ + + + + + | Closed | Specialty | Sleep | Diagnoses | [place], | [facility] | | | Services | Medicine | [place] | Sharan Sidhu | [place] [address] | | | Required | | sleep apnea | MD [address] | [place] | | | | | Procedures | [place] | [place], | | | | | DE POLYSOM | [facility] | [place] [address] | | | | | 6/>YRS SLEEP | [place], [place] | Phone: | | | | | 4/> ADDL | [address] | [phone] | | | | | SARAH ATTND | Phone: | Fax: | | | | | [address] | [phone] | [phone] | | | | | | Fax: | | | | | | | [phone] | | +--------+ + + + + + Encounter Details +--------+ + + + + | Date | Type | Department | Care Team | Description | +--------+ + + + + | 08/30/ | Hospital | [facility] | Sharan Bruno | Central sleep apnea | | 2015 | Encounter | MED CTR SLEEP | MD [address] | (Primary Dx); | | | | CENTER [address] [place] [address] | [place] [facility] | Central sleep apnea | | | | [place], [place] | [facility] [address] | due to Victoriano-Tomas | | | | [address] | [phone] | respiration; [place] | | | | [phone] | | (obstructive sleep | | | | | | apnea) | +--------+ + + + + Social [...] + + | digoxin (LANOXIN) | Take 250 mcg by | | 0 | | | | 250 mcg tablet | mouth Daily. 03/19 | | | | 5 | | | tablet daily | | | | | + [...] | | 100 MG tablet | Daily. 1/ daily | | | | 9 | [...] | | | | | | [place] [address] | | | | | | [phone] | | | | | | | | +--------+---------+ + + + | 05/19/ | Office | Cardiology | Cristian Mcocy, | | | 2019 | Visit | | [address] | | | | | | [place] | | | | | | [address] | | | | | | | | +--------+---------+ + + + documented as of this encounter Procedures + +--------+ + + + | Procedure Name | Priori | Date/Time | Associated Diagnosis | Comments | | | ty | | | | + +--------+ + + + | DIAGNOSTIC REPORT - | | 08/30/2014 | | | | EXTERNAL SCAN | | 12:00 AM | | | | | | PDT | | | + +--------+ + + + documented in this encounter Visit Diagnoses + + | Diagnosis | + + | Central sleep apnea - Primary Unspecified sleep apnea | + + | 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
--- OUTSIDE RECORDS SUMMARY | ~2019-02-20 | XMS | Encounter Summary ---
Demographics + + + | Address | [address] | | | [place] [address] | + + + | Home Phone | | + + + | Preferred Language | Unknown | + + + | Marital Status | | + + + | Christian Affiliation | 1028 | + + + | Race | Unknown | + + + | Ethnic Group | Unknown | + + + Author + + + | Author | [facility] | | | and [place] | + + + | Organization | [facility] | | [...] [place] | | | | | [address] | | + + + + + Care Team Providers + +------+ + | Care Security Shift Supervisor Name | Role | Phone | + +------+ + | Maycol Knutson MD | PCP | | + +------+ + Reason for Visit +--------+ + | Reason | Comments | +--------+ + | Apnea | | +--------+ + Encounter Details +--------+---------+ + + + | Date | Type | Department | Care Team | Description | +--------+---------+ + + + | 12/22/ | Office | [facility] | Sharan Bruno | Central sleep apnea | | 2013 | Visit | SLEEP DISORDER [address] | MD [address] | due to Victoriano-Tomas | | | | [address] | [address] [place] | respiration | | | | [place] [address] | [place] [address] | (Primary Dx) | | | | [phone] | [phone] | | | | | | | [...] + + + | Blood Pressure | 138/76 | 12/22/2013 10:12 AM | | | | | PDT | | + + + + + | Pulse | 81 | 12/22/2013 10:12 AM | | | | | PDT | | + + + + + | Temperature | - | - | | + + + + + | Respiratory Rate | 16 | 12/22/2013 10:12 AM | | | | | PDT | | + + + + + | Oxygen Saturation | 98% | 12/22/2013 10:12 AM | | | | | PDT | | + + + + + | Inhaled Oxygen | - | - | | | Concentration | | | | + + + + + | Weight | 81.1 kg (178 lb 14.4 | 12/22/2013 10:12 AM | | | | oz) | PDT | | + + + + + | Height | - | - | | + + + + + | Body Mass Index | 27.2 | 11/18/2013 10:00 AM | | | | | PDT | | + + + + + documented in this encounter Progress Notes Sharan Bruno Jr., MD - 12/22/2013 10:38 AM PDTThe patient comes in for f/u on his Centr al Sleep Apnea secondary to Victoriano-Tomas Respiration diagnosed on PSG performed on 3 (AHI 77.4, AI 56.2 - with the majority of apneas being CSA-REPATCHER). He recently, because of n snehal/sinus dryness, has received a new ASV unit and he is doing much better than when he las t saw Aleksandar KUO in our P[facility] Compliance [facility] (11/18/2013). He is on a Resmed ASV BiPAP: E PAP 4cm; PSmin 0cm; PS max 20cm; Backup auto. The mean Vt has been 400 ml. He has worn the A SV-BiPAP for 34 out of the last 34 days with an AHI of 0!. He averages 5 hours 19 minutes of use per night (100% of the time he sleeps). He and bedpartner both note that he is sleeping well and is alert in the daytime. He does sometimes still not some mild nasal/sinus dryness . BP 138/76 | Pulse 81 | Resp 16 | Wt 81.149 kg (178 lb 14.4 oz) | SpO2 98% A: CSA-REPATCHER: Doing well on ASV-BiPAP. I have increased the heat from 4.5 to 5 and the hose t emperature from 75 to 80 degrees today. P: RTC ([facility] Compliance Clinic) in 6 months, sooner prn. Today, 15 minutes was spent face to face with the patient; the majority of time was spent c giuliana regarding ASV BiPAP treatment of CSA-SCR.. documented in th is encounter Plan of Treatment +--------+---------+ + + [...] [place], | | | | | | [place] [address] | | | | | | [phone] | | | | | | | | +--------+---------+ + + + | 05/19/ | Office | Cardiology | Cristian Mccoy, | | | 2019 | Visit | | MD [address] | | | | | | [place] | | | | | | [address] | | | | | | | | +--------+---------+ + + + documented as of this encounter Visit Diagnoses + + | Diagnosis | + + | 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 - Primary Victoriano-Tomas | | respiration | + + documented in this encounter"
--- OUTSIDE RECORDS SUMMARY | ~2019-02-20 | XMS | Encounter Summary ---
Demographics + + + | Address | [address] | | | [place] [address] | + + + | Home Phone | | + + + | Preferred Language | Unknown | + + + | Marital Status | | + + + | Orthodoxy Affiliation | 1028 | + + + | Race | Unknown | + + + | Ethnic Group | Unknown | + + + Author + + + | Author | [facility] | | | and [place] | + + + | Organization | [facility] | | | [...] [place] | | | | | [address] | | + + + + + Care Team Providers + +------+ + | Care Hand Almond Blancher Name | Role | Phone | + +------+ + | Maycol Knutson MD | PCP | | + +------+ + Reason for Visit +--------+ + | Reason | Comments | +--------+ + | Apnea | | +--------+ + Encounter Details +--------+---------+ + + + | Date | Type | Department | Care Team | Description | +--------+---------+ + + + | 02/03/ | Office | [facility] | Aleksandar Tejeda PA | [place] (obstructive | | 2012 | Visit | SLEEP DISORDER [address] | [address] | sleep apnea) | | | | [address] | [facility] [place] | (Primary Dx); | | | | [place] [address] | [address] | Victoriano-Wallace | | | | [phone] | | respiration | +--------+---------+ + + + Social History [...] + + + | Blood Pressure | 110/62 | 02/03/2013 10:04 AM | | | | | PST | | + + + + + | Pulse | 70 | 02/03/2013 10:04 AM | | | | | PST | | + + + + + | Temperature | - | - | | + + + + + | Respiratory Rate | 16 | 02/03/2013 10:04 AM | | | | | PST | | + + + + + | Oxygen Saturation | - | - | | + + + + + | Inhaled Oxygen | - | - | | | Concentration | | | | + + + + + | Weight | 87.1 kg (192 lb 1.6 | 02/03/2013 10:04 AM | | | | oz) | PST | | + + + + + | Height | - | - | | + + + + + | Body Mass Index | 31.01 | 12/15/2012 1:28 PM | | | | | PDT | | + + + + + documented in this encounter Progress Notes Aleksandar Tejeda PA - 02/03/2013 10:08 AM PST Subjective: Patient ID: German Rose is a 67 y.o. male. HPI last office visit was: 01/27/2013 date of polysomnography: 12/22/2012 AHI: 77.4 RDI: 77.4 O2%: 86% with 15.8 minutes below 88% Machine type: Respironics ASV BiPAP with nasal mask ([place]) obtained from: [facility] pressure: EPAP = 4cm;PSmin=0cm;PSmax=25cm;backup rate=auto Nights using BiPAP: 10/23 average usage (all nights): 4:57 average usage (nights used): 4:57 AHI: 10.6 German comes in for BiPAP compliance. He has used his BiPAP each of the first eight nights. He did very well during the first four nights, but has struggled with a few of the nights s nikia with getting into a comfortable rhythm with the BiPAP. He has started the night doing fine and is able to fall asleep without difficult, but is waking in the supervisor decorating and st rugg[place] with his breathing. He says that he feels like he is working against the BiPAP and that it is trying to make him breathe too fast. This is a common problem for many people t hat are trying to adjust to the IPAP and EPAP. It is often difficult to get into a rhythm w ith the change of the pressures, especially when someone is focusing on their breathing. As he continues using his BiPAP, he will get more comfortable with it. I have discussed the download in detail. This shows that his sleep apnea is controlled, wi th an AHI of 10.1. This will likely improve as he continues to use the BiPAP. It also show s that his leaks are well controlled. Review of Systems Objective: Physical Exam Assessment: Problem #1: OBSTRUCTIVE SLEEP APNEA (ICD 9-327.23) This is controlled with BiPAP. He is doing well with his compliance, but has struggled a l ittle with getting into a breathing rhythm with the BiPAP pressures. He is also not sure if his current mask is the correct mask for him. 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 Plan: He is to continue with his BiPAP indefinitely. I recommended that he wear his BiPAP while watching television to help desensitize him to the pressures. This should allow him to lisa the more naturally and possibly help him forget about the BiPAP. I also recommended that he go to [facility] to try a different mask. I will follow up again in 1 month, sooner prn. Thirty minutes were spent rudj-bx-fvne, wit h the majority of time spent in counseling. Aleksandar Tejeda PA-C cc: Dr. Maycol Torrez documented in this enco unter Plan of Treatment +--------+---------+ + + + | Date | Type | Specialty | Care Team | Description | +--------+---------+ + + + | 03/05/ | Office | Pulmonology | Elia, | | | 2018 | Visit | | Mary Pinto, | | | | | | MD [address] | | | | | | [place] | | | | | | [place] [address] | | | | | | [phone] | | | | | | | | +--------+---------+ + + + | 05/19/ | Office | Cardiology | Cristian Mccoy, | | | 2019 | Visit | | MD [address] | | | | | | [place] | | | | | | [id number] | | | | | | | | +--------+---------+ + + + documented as of this encounter Visit Diagnoses + + | Diagnosis | + + | [place] (obstructive sleep apnea) - Primary Obstructive sleep apnea (adult) (pediatric) | + + | Victoriano-Wallace respiration | + + documented in this encounter"
--- OUTSIDE RECORDS SUMMARY | ~2019-02-20 | XMS | Encounter Summary ---
Demographics + + + | Address | [address] | | | [place] [address] | + + + | Home Phone | | + + + | Preferred Language | Unknown | + + + | Marital Status | | + + + | Sikh Affiliation | 1028 | + + + | Race | Unknown | + + + | Ethnic Group | Unknown | + + + Author + + + | Author | [facility] | | | and [place] | + + + | Organization | [facility] | | | and [...] [place] | | | | | [address] | | + + + + + Care Team Providers + +------+ + | Care Microstrategy Bi Developer Name | Role | Phone | + [...] | | | Services | Medicine | [place] | Sharan Sidhu | [place] [address] | | | Required | | sleep apnea | MD [address] | [place] | | | | | due to | [place] | [place], | | | | | Victoriano-Stoke | [place] | [place] [address] | | | | | s | [place] | Phone: | | | | | respiration | [address] | [phone] | | | | | [place] | Phone: | Fax: | | | | | (obstructive | [phone] | [phone] | | | | | sleep | Fax: | | | | | | apnea) | [phone] | | | | | | Procedures | | | | | | | [place] POLYSOM | | | | | | | 6/>YRS SLEEP | | | | | | | 4/> ADDL | | | | | | | SARAH ATTND | | | | | | | NPSG | | | +--------+ + + + + + Encounter Details +--------+ + + + + | Date | Type | Department | Care Team | Description | +--------+ + + + + | 01/03/ | Hospital | [facility] | Sharan Bruno | Central sleep apnea | | 2015 | Encounter | MED CTR SLEEP | MD [address] | due to Victoriano-Tomas | | | | CENTER [address] | [address] [facility] | respiration | | | | [place], [place] | [facility] [address] | (Primary Dx); [place] | | | | [address] | [phone] | (obstructive sleep | | | | [phone] | | apnea) | +--------+ + + [...] | | | | | | [address] | | | | | | [place], | | | | | | [place] [address] | | | | | | [phone] | | | | | | | | +--------+---------+ + + + | 05/19/ | Office | Cardiology | Cristian Mccoy, | | | 2020 | Visit | | [address] | | | | | | [place], [place] | | | | | | [address] | | | | | | | | +--------+---------+ + + + documented as of this encounter Procedures + +--------+ + + + | Procedure Name | Priori | Date/Time | Associated Diagnosis | Comments | | | ty | | | | + +--------+ + + + | DIAGNOSTIC REPORT - | | 01/03/2015 | | | | EXTERNAL SCAN | | 12:00 AM | | | | | | PDT | | | + +--------+ + + + documented in this encounter Visit Diagnoses + + | Diagnosis | + + | 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 - Primary Victoriano-Tomas | | respiration | + + | [place] (obstructive sleep apnea) Obstructive sleep apnea (adult) (pediatric) | + + documented in this encounter"
--- OUTSIDE RECORDS SUMMARY | ~2019-02-20 | XMS | Encounter Summary ---
Demographics + + + | Address | [address] | | | [place] [address] | + + + | Home Phone | | + + + | Preferred Language | Unknown | + + + | Marital Status | | + + + | Jew Affiliation | 1028 | + + + | Race | Unknown | + + + | Ethnic Group | Unknown | + + + Author + + + | Author | [facility] | | | and [place] | + + + | Organization | [facility] | | | [...] [place] | | | | | [address] | | + + + + + Care Team Providers + +------+ + | Care Rate Clerk Name | Role | Phone | + +------+ + | Maycol Knutson MD | PCP | | + +------+ + Encounter Details +--------+ + + + + | Date | Type | Department | Care Team | Description | +--------+ + + + + | 08/08/ | Hospital | [facility] | Conversion | Pain | | 2018 | Encounter | CONVERSION [address] | Transaction, | | | | | [address] | Provider Unknown | | | | | [place], [place] | [phone] | | | | | [address] | | | | | | [phone] | | | +--------+ + + + [...] | | | | | | [place] [address] | | | | | | [phone] | | | | | | | | +--------+---------+ + + + | 05/19/ | Office | Cardiology | Cristian Mccoy, | | | 2019 | Visit | | [address] | | | | | | [place] | | | | | | [address] | | | | | | | | +--------+---------+ + + + documented as of this encounter Procedures + +--------+ + + + | Procedure Name | Priori | Date/Time | Associated Diagnosis | Comments | | | ty | | | | + +--------+ + + + | XR CHEST 2 VIEWS | Routin | 10/23/2017 | | Results for this | | | e | 5:05 PM | | procedure are in the | | | | PDT | | results section. | + +--------+ + + + documented in this encounter Results XR Chest 2 Vws (10/23/2017 5:05 PM PDT) + + | Specimen | + + | | + + + + + | Narrative | Performed At | + + + | This is a non-reportable procedure without a radiologist report and | | | is used for image storage only | | + + + + + | Procedure Note | + + | Diogo Harris Keyonna - 10/29/2018 4:21 AM PDT This is a non-reportable procedure | | without a radiologist report and isused for image storage only | + + documented in this encounter Visit Diagnoses + + | Diagnosis | + + | Pain Generalized pain | + + documented in this encounter"
--- OUTSIDE RECORDS SUMMARY | ~2019-02-20 | XMS | Encounter Summary ---
Demographics + + + | Address | [address] | | | [place] [address] | + + + | Home Phone | | + + + | Preferred Language | Unknown | + + + | Marital Status | | + + + | Bahai Affiliation | LUT | + + + [...] Team Providers + +------+ + | Care Mechatronics Engineer Name | Role | Phone | + +------+ + | Maycol Knutson MD | PCP | | + +------+ + Encounter Details +--------+ + + + + | Date | Type | Department | Care Team | Description | +--------+ + + + + | 04/25/ | H&P-Transcr | | Physical, History | Hstry & Physical | | 2000 | ibed | | & | | +--------+ + + + + [...]
--- OUTSIDE RECORDS SUMMARY | ~2019-02-20 | XMS | Encounter Summary ---
Demographics + + + | Address | [address] | | | [place] [address] | + + + | Home Phone | | + + + | Preferred Language | Unknown | + + + | Marital Status | | + + + | Evangelical Affiliation | 1028 | + + + | Race | Unknown | + + + | Ethnic Group | Unknown | + + + Author + + + | Author | [facility] | | | and [place] | + + + | Organization | [facility] | | [...] [place] | | | | | [address] | | + + + + + Care Team Providers + +------+ + | Care Melter Clerk Name | Role | Phone | + +------+ + | Nelson Laird MD | PCP | | + +------+ + Reason for Visit + + + | Reason | Comments | + + + | Follow-up | 5 mo f/u | + + + Encounter Details +--------+---------+ + + + | Date | Type | Department | Care Team | Description | +--------+---------+ + + + | 11/12/ | Office | [facility] | Nadine Cristian, | Coronary artery | | 2019 | Visit | CARDIOLOGY DIONICIO | [address] | disease of bypass | | | | [address] | [place], [place] | graft of [place] | | | | [address] [place] [address] | [address] | heart with stable | | | | [place] | | angina pectoris | | | | [address] | | (HCC); Essential | | | | [phone] | | hypertension; Stable | | | | | | angina ([facility]); | | | | | | Chronic atrial | | | | | | fibrillation ([facility]) | +--------+---------+ + + + Social History [...] + + + | Blood Pressure | 108/48 | 11/12/2018 1:03 PM | | | | | PDT | | + + + + + | Pulse | 61 | 11/12/2018 1:03 PM | | | | | PDT | | + + + + + | Temperature | - | - | | + + + + + | Respiratory Rate | - | - | | + + + + + | Oxygen Saturation | 95% | 11/12/2018 1:03 PM | | | [...] + + documented in this encounter Progress Cristian South MD - 11/12/2018 1:00 PM PDTFormatting of this note might be different f rom the original. Date of visit: 11/12/2018 Primary Care Physician: Nelson Laird MD CHIEF COMPLAINT: Chief Complaint Patient presents with Follow-up 5 mo f/u HISTORY OF PRESENT ILLNESS: German is 73 y.o. here for follow up visit. Since prior evaluation no cardiac events. Chronic shortness of breath due to chronic obstructive pulmonary disease. Weight has been stable. Left lower extremity has increased swelling no swelling in the leg. No significant episodes of epistaxis after decreasing the dose of Rivaroxaban to 10 mg rossy y. Previously had multiple episodes where he had to go to emergency room with epistaxis. Continues to be on Rivaroxaban, couldn't tolerate Aspirin or clopidogrel due to recurrent e pistaxis. Was hospitalized in October 2017 secondary to non-ST elevation MO in the setting of COPD exa cerbation. Coronary angiogram was performed and was found to have occluded saphenous vein graft to lef t circumflex system however left circumflex is small and not amenable to PCI. Denies any chest pain, continued to have shortness of breath which is chronic due to chroni c obstructive pulmonary disease. S/P CABG x 4 in 1995. Had a vocal cord cancer in 1997. Diagnosed with atrial fibrillation m any years ago. Had peptic ulcer disease and aspirin had to be stopped, patient had to have blood transfusi on. [facility] last time seen was in 2004, after that he was e valuated by Dr. Torrez in 2012. Past medical history, SH, FH, and medications were reviewed in the chart. Medications: Outpatient Encounter Medications as of 11/12/2018 Medication Sig Dispense Refill acyclovir (ZOVIRAX) 400 MG tablet Take 400 mg by mouth 5 (five) times daily. PRN acyclovir (ZOVIRAX) 5% ointment Apply topically every 3 hours. albuterol (PROAIR HFA) 90 mcg/puff inhaler Inhale 2 puffs into the lungs every 6 hours as needed for Wheezing. albuterol (PROAIR RESPICLICK) 90 mcg/puff inhaler Inhale into the lungs. albuterol-ipratropium 2.5-0.5 mg/3 mL SOLN Take 3 mLs by nebulization every 6 (six) yair rs as needed. atorvaSTATin (LIPITOR) 40 mg tablet TAKE 1 TABLET BY MOUTH NIGHTLY azaTHIOprine (IMURAN) 50 mg tablet Take 150 mg by mouth daily. bacitracin-polymyxin b (POLYSPORIN) ophthalmic ointment Apply to eye as needed. bismuth subsalicylate (PEPTO BISMOL) 262 mg chewable tablet Take 262 mg by mouth 4 (fou r) times daily before meals and nightly. cholecalciferol (CHOLECALCIFEROL) 1000 units TABS Take 1,000 Units by mouth daily. Cholecalciferol (VITAMIN D3) 2000 UNITS CAPS Take 2,000 Units by mouth Daily. cyanocobalamin (VITAMIN B-12) 1000 MCG tablet Take 1,000 mcg by mouth daily. diclofenac (VOLTAREN) 1% GEL Apply 2 g topically 4 (four) times daily. PRN digoxin (LANOXIN) 250 mcg tablet Take 250 mcg by mouth Daily. 1/2 capsule daily diltiazem (DILT-XR) 120 mg 24 hr capsule Take 120 mg by mouth Daily. famotidine (PEPCID) 40 MG tablet Take 40 mg by mouth daily. ferrous sulfate 325 mg tablet Take 325 mg by mouth 3 times daily. fluticasone (FLONASE) 50 mcg/nasal spray one spray in each nostril daily as needed fluticasone-salmeterol (ADVAIR) 500-50 mcg/puff diskus inhaler Inhale 1 puff into the l ungs Twice Daily. folic acid 1 mg tablet Take 1 mg by mouth Daily. furosemide (LASIX) 40 mg tablet Take 40 mg by mouth Daily. guaiFENesin (MUCINEX) 600 mg 12 hr tablet Take 1,200 mg by mouth 2 times daily. HYDROcodone-acetaminophen (NORCO) 7.5-325 mg per tablet Take 1 tablet by mouth as neede d for Pain. levocetirizine (XYZAL) 5 MG tablet Take 5 mg by mouth as needed. levothyroxine (LEVOTHROID) 75 MCG tablet Take 75 mcg by mouth Daily. levothyroxine (SYNTHROID) 75 MCG tablet Take 75 mcg by mouth every morning before break fast. losartan (COZAAR) 50 mg tablet Take 50 mg by mouth daily. methotrexate 2.5 mg tablet Take 15 mg by mouth Once a week. metoclopramide (REGLAN) 10 mg tablet Take 10 mg by mouth 4 times daily as needed. mupirocin (BACTROBAN) 2% ointment 1 g by Nasal route as needed. Use pea sized amount in each nostril twice daily for 5 days. After applications, press sides of nose together, gent ly massage for 1 min. nystatin-triamcinolone (MYCOLOG II) cream Apply topically 2 times daily. ofloxacin (OCUFLOX) 0.3% ophthalmic solution omeprazole (PRILOSEC) 20 mg capsule Take 20 mg by mouth 2 times daily. potassium chloride (KLOR-CON) 10 MEQ ER tablet Take 10 mEq by mouth 2 (two) times daily with meals. potassium citrate (UROCIT-K) 10 mEq SR tablet Take 10 mEq by mouth 2 times daily. predniSONE (DELTASONE) 5 mg tablet Take 10 mg by mouth Daily. pseudoePHEDrine (SUDOGEST) 30 mg tablet Take 30 mg by mouth every 4 hours as needed for Congestion. rivaroxaban (XARELTO) 10 mg tablet Take 1 tablet by mouth daily. sertraline (ZOLOFT) 100 mg tablet Take 100 mg by mouth daily. tamsulosin (FLOMAX) 0.4 mg CAPS Take 0.4 mg by mouth 2 times daily. trolamine salicylate (ASPERCREME) 10% cream Apply topically as needed. No facility-administered encounter medications on file as of 11/12/2018. Allergies Allergies Allergen Reactions Beta Adrenergic Blockers Anaphylaxis Diltiazem Other (See Comments) Gabapentin Other (See Comments) COLOR TELEVISION CONSOLE MONITOR Imipramine Other (See Comments) Urinary retention Metoprolol Swelling Propranolol Other (See Comments) raynaud's Diltiazem Hcl Lipitor Propranolol Hcl REVIEW OF SYSTEMS: Constitutional: Positive for fatigue. No fever, chills, and rigors. Weight has been stable . HEENT: Negative for nosebleeds, ear discharge, nasal congestion or soar throat. Eyes: Negative for visual disturbance, redness, or secretion. Respiratory: Negative for cough, sputum production, hemoptysis, wheezing. Cardiovascular: Negative for orthopnea. No chest pain or tightness. No LE edema. Gastrointestinal: Negative for nausea, vomiting, diarrhea, abdominal pain and blood in stoo l. Genitourinary: Negative for dysuria or hematuria. Musculoskeletal: Arthritic pain. Skin: Negative for rash. Neurological: Negative for dizziness. No numbness. No recent falls. No slurred speech. Hematological: No significant bruising. Psychiatric/Behavioral: No depression or anxiety. PHYSICAL EXAM Vital Signs: BP 108/48 | Pulse 61 | Ht 1.727 m (5' 8") | Wt 72.9 kg (160 lb 11.2 oz) | SpO2 95% | B MO 24.43 kg/m GENERAL APPEARANCE: Alert, oriented, cooperative, no distress, appears stated age. HEENT: Bleeding of the right eye. Extraocular movements were intact. No jaundice. Pupiles round and reactive. NECK: No JVD, lymphadenopathy. Carotid upstrokes normal. No carotid bruit heard. CARDIAC: Regular rhythm and rate. There is normal S1 and S2. No galop. No murmur. CHEST: Diminished air exchange. No wheezing. ABDOMEN: Soft.No tenderness or guarding. No palpable organs. Active bowel sounds. EXTREMITIES: No lower extremities edema, cyanosis or clubbing. NEURO: Alert and oriented times three with no focal deficit. Cranial nerves are grossly no rmal. SKIN: Warm and dry. No rash. Ecchymosis noted in bilateral arms. Psych: Normal affect and mood. DATA 08/18/2018 WBC 7.1, hemoglobin 10.0, platelets 188, MCV 88. Sodium 139, potassium 3.8, chloride 105, bicarb 24, BUN 22, creatinine 1.25, GFR 56. AST 9, AST 5, alk phos 73. Troponin 1.6 7. Total iron 47.4, saturation 12.6%. TSH 3.2. TIBC 377. Lab Results Component Value Date/Time NA 143 10/26/2017 05:35 NA 139 10/25/2017 10:00 NA 138 10/24/2017 01:57 K 3.3 (L) 10/26/2017 05:35 K 3.8 10/25/2017 10:00 K 4.3 10/24/2017 01:57 CO2 26 10/26/2017 05:35 CO2 24 10/25/2017 10:00 CO2 24 10/24/2017 01:57 BUN 12 10/26/2017 05:35 BUN 15 10/25/2017 10:00 BUN 14 10/24/2017 01:57 LABCREA 1.1 10/26/2017 05:35 LABCREA 1.2 10/25/2017 10:00 LABCREA 1.3 10/24/2017 01:57 CALCIUM 8.5 10/26/2017 05:35 CALCIUM 8.4 (L) 10/25/2017 10:00 CALCIUM 8.6 10/24/2017 01:57 MG 1.8 10/24/2017 01:57 Lab Results Component Value Date/Time WBC 5.20 10/26/2017 05:35 WBC 7.51 10/25/2017 10:00 WBC 11.05 (H) 10/24/2017 01:57 HGB 9.6 (L) 10/26/2017 05:35 HGB 9.4 (L) 10/25/2017 10:00 HGB 11.5 (L) 10/24/2017 01:57 MCV 76.7 (L) 10/26/2017 05:35 MCV 77.0 (L) 10/25/2017 10:00 MCV 77.5 (L) 10/24/2017 01:57 Lab Results Component Value Date CHOL 103 10/24/2017 TRIG 116 10/24/2017 HDL 24 (L) 10/24/2017 GLUF 101 (H) 10/26/2017 GLUF 137 (H) 10/25/2017 EK11/12/2018 Ordered and reviewed that showed atrial fibrillation with controlled ventricular rate and r ight bundle branch block. 10/24/2017 Reviewed by myself showed atrial fibrillation with RBBB. Last Echo: 10/24/2017 Normal LV size and function EF 55%. Inferior and inferolateral hypokinetic segments. 06/30/2012 Reported with normal LV size and function EF 56%. RV is normal in size and function. Last Stress test: 10/14/2017 Lexiscan Cardiolite stress test with evidence of ischemia inferior segment and small revers ible defect as well as in the anterior segment. Last Cath: 10/24/2017 LM mild disease, LAD 100% occluded. LCX small caliber calcified with severe disease proxima l and distal not amenable to PCI. RCA 100% occluded. SVG to distal RCA patent, GRIER to LAD patent. SVG to LCX system is occluded at the insertion site. Last US carotid: ASSESSMENT: Patient is 73 y.o.with the following medical problems: 1. Coronary artery disease, occluded SVG to LCX system, LCX is not amenable to PCI. No ang inal symptoms. 2. Recurrent epistaxis, couldn't tolerate aspirin neither clopidogrel. Currently on low-dos e Rivaroxaban. 3. History of Non-ST elevation MO. 4. Dysphagia. 5. Chronic atrial fibrillation. On rate control strategy with digoxin and anticoagulation. CHADSVASc score of 4. 6. AAA. 7. History of CABG 4 in 1995. 8. Chronic right bundle branch block. 9. Hypertension blood pressures controlled. 10. Chronic obstructive pulmonary disease. 11. History of upper GI bleed due to peptic ulcer was off any antiplatelet therapy. 12. History of vocal cord cancer. 13. Normocytic anemia likely of chronic disease. Recommendations: Finished cardiac rehabilitation soon. No cardiac events since prior evaluation. Could not tolerate any dual antiplatelet therapy secondary to significant epistaxis that re quired ER evaluation. Could not tolerate even aspirin. Continue with anticoagulation with Rivaroxaban 10 mg po q day. If epistaxis becomes again of significance will discuss possible left atrial appendage occl usion, Watchman device placement. Continue to monitor H and H and any sign of increased hemoptysis. Continue with Losartan 50 mg p.o. daily, statin. Digoxin 0.125 mg daily. Not a candidate for BB. HR is controlled ratewith atrial fibrillation. We will continue to follow-up with pulmonary. We will call with any change in status. *This report has been prepared using a voice recognition system. The report was reviewed fo r accuracy, however, sound-alike word errors, addition and/or deletions may occur. If there is any question about this report please contact me. Cristian Lazar MD, MPH documented in this encounter Plan of Treatment +--------+---------+ + + + | Date | Type | Specialty | Care Team | Description | +--------+---------+ + + + | 03/05/ | Office | Pulmonology | Elia, | | | 2019 | Visit | | Mary Pinto, | | | | | | MD [address] | | | | | | [place], | | | | | | [place] [address] | | | | | | [phone] | | | | | | | | +--------+---------+ + + + | 05/19/ | Office | Cardiology | Cristian Lazar, | | | 2020 | Visit | | MD [address] | | | | | | [place] | | | | | | [address] | | | | | | | [...] | + +--------+ + + + | ECG 12 LEAD | Routin | 11/12/2018 | Coronary artery | Results for this | | | e | 1:31 PM | disease of bypass | procedure are in the | | | | PDT | graft of [place] | results section. | | | | | heart with stable | | | | | | angina pectoris | | | | | | (HCC) Essential | | | | | | hypertension Stable | | | | | | angina (HCC) | | | | | | Chronic atrial | | | | | | fibrillation (HCC) | | + +--------+ + + + documented in this encounter Results LABS - EXTERNAL SCAN (11/24/2018 12:00 AM PDT) + + + | Narrative | Performed At | + + + | Ordered by an | | | unspecified provider. | | + + + ECG 12 lead (11/12/2018 1:31 PM PDT) + + + + + + | Component | Value | Ref Range | Performed | Pathologist | | | | | At | Signature | + + + + + + | VENTRICULAR | 50 | BPM | [facility] | | | RATE EKG | | | | | + + + + + + | ATRIAL RATE | 178 | BPM | [facility] | | + + + + + + | QRS | 132 | ms | [facility] | | | DURATION | | | | | + + + + + + | Q-T | 436 | ms | [facility] | | | INTERVAL | | | | | + + + + + + | Q-T | 397 | ms | [facility] | | | INTERVAL | | | | | | (CORRECTED) | | | | | + + + + + + | QRS AXIS | -68 | degrees | [facility] | | + + + + + + | T AXIS | 55 | degrees | [facility] | | + + + + + + | INTERPRETAT | Atrial fibrillation with | | [facility] | | | ION TEXT | slow ventricular | | | | | | responseRight bundle | | | | | | branch blockLeft | | | | | | anterior fascicular | | | | | | block Bifascicular | | | | | | block Abnormal | | | | | | ECGWhen compared with | | | | | | ECG of 24-OCT-2017 | | | | | | 06:28,QT has | | | | | | shortenedPlease refer to | | | | | | Providers office visit | | | | | | note for Providers | | | | | | Interpretation.Confirmed | | | | | | by [facility] Read Only, | | | | | | [facility]arie ([id number]), | | | | | | clinical editor Elbert Portillo | | | | | | ([id number]) on 11/12/2018 | | | | | | 5:21:34 PM | | | | + + + + + + + + | Specimen | + + | | + + + + + | Narrative | Performed At | + + + | | | + + + + +---------+ + + | Performing | Address | City/State/Zipcode | Phone Number | | Organization | | | | + +---------+ + + | [facility] | | | | + +---------+ + + documented in this encounter Visit Diagnoses + + | Diagnosis | + + | Coronary artery disease of bypass graft of [place] heart with stable angina pectoris | | (HCC) | + + | Essential hypertension Unspecified essential hypertension | + + | Stable angina (HCC) Other and unspecified angina pectoris | + + | Chronic atrial fibrillation Atrial fibrillation | + + documented in this encounter
--- OUTSIDE RECORDS SUMMARY | ~2019-02-20 | XMS | Encounter Summary ---
Demographics + + + | Address | [address] | | | [place] [address] | + + + | Home Phone | | + + + | Preferred Language | Unknown | + + + | Marital Status | | + + + | Protestant Affiliation | 1028 | + + + [...] [place] | | | | | [address] | | + + + + + Care Team Providers + +------+ + | Care [place] Assistant Name | Role | Phone | + +------+ + PCP | Unavailable | + +------+ + Encounter Details +--------+ + + + + | Date | Type | Department | Care Team | Description | +--------+ + + + + | 11/16/ | Hospital | [facility] | | | | 1998 | Encounter | MED CTR GENERIC OP | | | | | | CONV DEPT [address] | | | | | | [place], | | | | | | [place] [address] | | | | | | [phone] | | | +--------+ + + + [...] | | | | | | [place] [address] | | | | | | [phone] | | | | | | | | +--------+---------+ + + + | 05/19/ | Office | Cardiology | Cristian Mccoy, | | | 2020 | Visit | | MD [address] | | | | | | [place] | | | | | | [address] | | | | | | | | +--------+---------+ + + + documented as of this encounter Visit Diagnoses Not on filedocumented in this encounter"
--- OUTSIDE RECORDS SUMMARY | ~2019-02-20 | XMS | Encounter Summary ---
Demographics + + + | Address | [address] | | | [place] [address] | + + + | Home Phone | | + + + | Preferred Language | Unknown | + + + | Marital Status | | + + + | Taoism Affiliation | 1028 | + + + | Race | Unknown | + + + | Ethnic Group | Unknown | + + + Author + + + | Author | [facility] | | | and [place] | + + + | Organization | [facility] | | | [...] [place] | | | | | [address] | | + + + + + Care Team Providers + +------+ + | Care Outpatient Coder Name | Role | Phone | + [...] + + | 12/22/ | Office | [facility] | Sharan Bruno | Central sleep apnea | | 2013 | Visit | SLEEP DISORDER [address] | MD [address] | due to Victoriano-Tomas | | | | [address] | [address] | respiration | | | | [place] [address] | [place] [address] | (Primary Dx) | | | | [phone] | [phone] | | | | | | | [...] - with 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
--- OUTSIDE RECORDS SUMMARY | ~2019-02-20 | XMS | Encounter Summary ---
Demographics + + + | Address | [address] | | | [place] [address] | + + + | Home Phone | | + + + | Preferred Language | Unknown | + + + | Marital Status | | + + + | Mormonism Affiliation | LUT | + + + [...] Providers + +------+ + | Care Director Investor Relations Name | Role | Phone | + +------+ + | Maycol Callahan MD | PCP | | + +------+ + Encounter Details +--------+ + + + + | Date | Type | Department | Care Team | Description | +--------+ + + + + | 09/01/ | Office | [facility] | Note, [...] as of this encounter Progress Notes Interface, Wire Hanger In - 03/06/2006 1:03 AM PSTCLINIC DATE: 09/01/1998 OTOLARYNGOLOGY CLINIC SUBJECTIVE: Mr. 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 He has not yet made an appointment with Dr. Barragan and that is going to be facilitated today. I saw the patient with my senior Resident, Dr. Jose Juan Rodriguez, and details of my interaction with the patient are outlined in his note. In brief, however, although better than he was prior to his dilation, he has had some regression again and is once again having mild difficulty with breathing with exertion. OBJECTIVE: Flexible fiberoptic laryngoscopy shows a significant amount of glottic edema and subglottic edema consistent with his ongoing symptomatology of reflux. I have told that although we probably will need to re-dilate this, we are going to have to deal with the reflux before anything improves and he understands that. ASSESSMENT AND PLAN: I will see him back in conjunction with his visit with Dr. Barragan. I will dilate him before that if he has trouble. Dylan Arthur M.D. KRIS/sue cc: Rohan Barragan M.D. [facility] AGUSTINA FERNANDEZ MD [address] [facility] [place] [address] MAYCOL CALLAHAN MD [address] [address] [place] [id number] signed by Interface, Wire Hanger In at 03/06/2006 1:03 AM PSTInterface, Wire Hanger In - 03/06/2006 1:03 AM PSTCLINIC DATE: 09/01/1998 OTOLARYNGOLOGY CLINIC SUBJECTIVE: The patient returns to the clinic today regarding his laryngeal stenosis and reflux issues. He is status post a vertical hemilaryngectomy several months ago. He has had difficulty with laryngeal stenosis and stridor on exertion. He underwent dilation one month ago. He reports that he initially had fairly good improvement but has since returned to almost baseline. He also underwent a pH probe study that showed significant gastroesophageal reflux including reflux at the proximal probe. He has been unable to see Dr. Barragan because of work conflicts. In the meantime, he continues on his Prilosec 20 mg po twice daily. OBJECTIVE: Flexible nasopharyngoscopy reveals prominent inflammation about the supraglottics and glottis with collapse of the glottis and scarring on the right consistent with his hemilaryngectomy. Overall, the stenosis is slightly better than prior to dilation but still significantly narrowed. ASSESSMENT: Transient improvement in laryngeal airway status post dilation, now returned almost to baseline. The patient will be seeing Dr. Barragan regarding a Sudarshan procedure some time soon. We would repeat his dilation at the time of the Sudarshan. PLAN: The patient will telephone and set up an appointment with Dr. Barragan. We will coordinate the dilation at the same time as the Sudarshan. The patient was interviewed and examined by Dr. Dylan Arthur in clinic today. Jose Juan Rodriguez M.D. Dylan Arthur M.D. AL/sue Tdocumented in this encounter Plan of Treatment Not on filedocumented as of this encounter Visit Diagnoses Not on filedocumented in this encounter"
--- OUTSIDE RECORDS SUMMARY | ~2019-02-20 | XMS | Clinical Summary ---
Demographics + + + | Address | [address] | | | [place] [address] | + + + | Home Phone [...] Team Providers + +------+ + | Care Manuscripts Curator Name | Role | Phone | + +------+ + | Maycol Knutson MD | PCP | | + +------+ + Source Comments ARIANNA is fully live on both [facility] Ambulatory and [facility] InPatient.[facility] Allergies No Known Allergies Medications + + + +---------+------+------+-------+ | Medication | Sig | Dispensed | Refills | Star | End | Statu | | | | | | t | Date | s | | | | | | Date | | | + + + +---------+------+------+-------+ | VICODIN ORAL | None Entered | | 0 | | | Activ | | | | | | | | e | + + + +---------+------+------+-------+ | LANSOPRAZOLE | Take by mouth. | | 0 | | | Activ | | (PREVACID ORAL) | | | | | | e | + + + +---------+------+------+-------+ | metoclopramide | Take 5 mg by mouth | | 0 | | | Activ | | (REGLAN) 5 mg Oral | every six hours as | | | | | e | | Tablet | needed. | | | | | | + + + +---------+------+------+-------+ | sertraline | Take 50 mg by mouth | | 0 | | | Activ | | (ZOLOFT) 50 mg Oral | once daily. | | | | | e | | Tablet | | | | | | | + + + +---------+------+------+-------+ | tamsulosin | Take 0.4 mg by mouth | | 0 | | | Activ | | (FLOMAX) 0.4 mg Oral | once daily. | | | | | e | | Capsule, Sust. | | | | | | | | Release 24 hr | | | | | | | + + + +---------+------+------+-------+ | TESTOSTERONE IM | Inject into the | | 0 | | | Activ | | | muscle (IM). | | | | | e | + + + +---------+------+------+-------+ | | Take by mouth. | | 0 | | | Activ | | Amlodipine-Atorvasta | | | | | | e | | tin (CADUET) 10-10 | | | | | | | | mg Oral Tablet | | | | | | | + + + +---------+------+------+-------+ | ACYCLOVIR ORAL | Take by mouth as | | 0 | 06/3 | | Activ | | | needed. | | | 0/20 | | e | | | | | | 10 | | | + + + +---------+------+------+-------+ | CYANOCOBALAMIN | by Injection route | | 0 | 06/3 | | Activ | | (VITAMIN B-12 INJ) | every thirty days. | | | 0/20 | | e | | | | | | 10 | | | + + + +---------+------+------+-------+ | gabapentin 300 mg | Take 300 mg by mouth | | 0 | | | Activ | | Oral Tablet | three times daily. | | | | | e | + + + +---------+------+------+-------+ | LORATADINE | Take by mouth. | | 0 | | | Activ | | (CLARITIN ORAL) | | | | | | e | + + + +---------+------+------+-------+ | NAPROXEN | Take by mouth. | | 0 | | | Activ | | SODIUM/P-EPHED HCL | | | | | | e | | (SUDAFED 12 HR | | | | | | | | SINUS-PAIN ORAL) | | | | | | | + + + +---------+------+------+-------+ | atorvastatin | Take 10 mg by mouth | | 0 | | | Activ | | (LIPITOR) 10 mg Oral | once daily. | | | | | e | | Tablet | | | | | | | + + + +---------+------+------+-------+ | omeprazole | Take 40 mg by mouth | | 0 | | | Activ | | (PRILOSEC) [...] + + + + | Laryngeal cancer | 12/19/19 | | | | 07 | | + + + + Family History + + +------+ + | Medical History | Relation | Name | Comments | + + +------+ + | Cancer | Mother | | breast | + + +------+ + | Movement Disorder | Neg Hx | | | + + +------+ + | Thyroid | Neg Hx | | | + + +------+ + | Tremor | Neg Hx | | | + + +------+ + + +------+--------+ [...] | + + + + + | Pneumococcal | | | | | vaccination (1 of 2 | 9 | | | | - PCV13) | | | | + + + + + | Influenza (Flu) | | | | | vaccination (#1) | 9 | | | + + + + + Results Not on filefrom Last 3 Months Insurance + +--------+ +--------+ + +--------+ | Payer | Benefi | Subscriber | Effect | Phone | Address | Type | | | t Plan | ID | nafisa | | | | | | / | | Dates | | | | | | Group | | | | | | + +--------+ +--------+ + +--------+ | MEDICARE | MEDICA | xxxxxxxxxx | | [phone] | [address] | [address] | | | [address] & | | [phone] | | | [address] | | esent | | [place], [place] | | | | | | | | [address] | | + +--------+ +--------+ + +--------+ | COMMERCIAL GROUP | COMMER | xxxxxxxxx | Effect | | | Indemn | | | CIAL | | nafisa | | | ity | | | GROUP | | for | | | | | | | | all | | | | | | | | dates | | | | + +--------+ +--------+ + +--------+ + +--------+ +--------+ + + | Guarantor Name | Accoun | Relation to | Date | Phone | Billing Address | | | t Type | Patient | of | | | | | | | | | | + +--------+ +--------+ + + | German Rose | Person | Self [birth year] [address] | | | al/Fam | | 1945 | [phone] | [place], [place] | | | [place] | | | [address] (Home) | [phone] | + +--------+ +--------+ + + Advance Directives + + + + + | Type | Date Recorded | Patient | Explanation | | | | Machine Inker | | + + + + + | Advance | | | | | Directives and | | | | | Living Will | | | | + + + + + | Power of | | | | | Mechanical Specialist | | | | + + + + +
--- OUTSIDE RECORDS SUMMARY | ~2019-02-20 | XMS | Encounter Summary ---
Demographics + + + | Address | [address] | | | [place] [address] | + + + | Home Phone | | + + + | Preferred Language | Unknown | + + + | Marital Status | | + + + | Congregation Affiliation | 1028 | + + + | Race | Unknown | + + + | Ethnic Group | Unknown | + + + Author + + + | Author | [facility] | | | and [place] | + + + | Organization | [facility] | | | and [...] [place] | | | | | [address] | | + + + + + Care Team Providers + +------+ + | Care Traveling Sales Executive Name | Role | Phone | + +------+ + | Maycol Knutson MD | PCP | | + +------+ + Encounter Details +--------+ + + + + | Date | Type | Department | Care Team | Description | +--------+ + + + + | 10/07/ | Orders Only | [facility] | Provider, | | | 2019 | | SYSTEM GENERIC OP | MD [address] | | | | | [address] | [address] | | | | | [address] [place], [place] | [place] [address] | | | | | [address] | | | | | | [phone] | | | +--------+ + + + [...] | | | | | | [place] [address] | | | | | | [phone] | | | | | | | | +--------+---------+ + + + | 05/19/ | Office | Cardiology | Cristian Mccoy, | | | 2020 | Visit | | MD [address] | | | | | | [place] | | | | | | [address] | | | | | | | | +--------+---------+ + + + documented as of this encounter Visit Diagnoses Not on filedocumented in this encounter"
--- OUTSIDE RECORDS SUMMARY | ~2019-02-20 | XMS | Encounter Summary ---
Demographics + + + | Address | [address] | | | [place] [address] | + + + | Home Phone | | + + + | Preferred Language | Unknown | + + + | Marital Status | | + + + | Congregational Affiliation | 1028 | + + + | Race | Unknown | + + + | Ethnic Group | Unknown | + + + Author + + + | Author | [facility] | | | and [place] | + + + | Organization | [facility] | | [...] [place] | | | | | [id number] | | + + + + + Care Team Providers + +------+ + | Care Optic Fibre Drawer Name | Role | Phone | + +------+ + | Maycol Knutson MD | PCP | | + +------+ + Reason for Visit +---------+ + | Reason | Comments | +---------+ + | Consult | | +---------+ + | Snoring | | +---------+ + Encounter Details +--------+---------+ + + + | Date | Type | Department | Care Team | Description | +--------+---------+ + + + | 12/15/ | Office | [facility] | Sharan Bruno | NOLA (obstructive | | 2012 | Visit | SLEEP DISORDER [address] | MD [address] | sleep apnea) | | | | [address] [place] | [address] [place] | (Primary Dx); | | | | [place] [address] | [place] [address] | Parasomnia; Heart | | | | [phone] | [phone] | failure (HCC); | | | | | | Atrial fibrillation | | | | | | (HCC); HBP (high | | | | | | blood pressure); | | | | | | ASCVD | | | | | | (arteriosclerotic | | | | | | cardiovascular | | | | | | disease); Raynaud | | | | | | disease; | | | | | | Fibromyalgia; Aortic | | | | | | aneurysm (HCC); | | | | | | Cancer of vocal cord | | | | | | (HCC) | +--------+---------+ + + + Social History [...] + + + | Blood Pressure | 106/66 | 12/15/2012 1:28 PM | | | | | PDT | | + + + + + | Pulse | 78 | 12/15/2012 1:28 PM | | | | | PDT | | + + + + + | Temperature | - | - | | + + + + + | Respiratory Rate | 16 | 12/15/2012 1:28 PM | | | | | PDT | | + + + + + | Oxygen Saturation | - | - | | + + + + + | Inhaled Oxygen | - | - | | | Concentration | | | | + + + + + | Weight | 91.9 kg (202 lb 11.2 | 12/15/2012 1:28 PM | | | | oz) | PDT | | + + + + + | Height | 167.6 cm (5' 6") | 12/15/2012 1:28 PM | | | | | PDT | | + + + + + | Body Mass Index | 32.72 | 12/15/2012 1:28 PM | | | | | PDT | | + + + + + documented in this encounter Patient Instructions Patient Instructions Sharan Bruno Jr., MD - 12/15/2012 2:27 PM PDTI think you have Obs tructive Sleep Apnea for which we need to do a sleep study. documented in this encounter Progress Notes Aylin Galeas - 12/15/2012 1:42 PM PDT 12/15/12 1300 Schmidt Depression Inventory-II Depression Score 4 - Minimal depression Insomnia Severity Index Insomnia Severity Index 17 [place] Sleepiness Scale Sitting and reading 2 Watching TV 3 Sitting, inactive in a public place (e.g. a theatre or a meeting) 2 As a passenger in a car for an hour without a break 3 Lying down to rest in the afternoon when circumstances permit 3 Sitting and talking to someone 1 Sitting quietly after a lunch without alcohol 2 In a car, while stopped for a few minutes in traffic 1 Total score 17 SF-36v2 Score PF 40.2 RP 37.26 BP 32.96 GH 43.4 VT 33.36 SF 24.13 RE 24.78 MH 33.11 PCS 42.6 MCS 25.57 haran Bruno Jr., MD - 12/15/2012 1:41 PM PDTFormatting of this note might be different from the origi nal. [facility] [place] [address] Ref: Maycol Knutson CC: Chief Complaint Patient presents with Consult Snoring History of the Present Illness:This is a 67 year old male who is referred for sleep medicin e consultation by Dr. Aurea Knutson because of possible NOLA. Other significant medical issues in clude Atrial Fibrillation and heart failure, HBP, hypothyroidism, aortic aneurysm (3.3cm in June 2012). The patient's records (Dr. Knutson's note of 11/18/2012) are reviewed. The patient is interviewed and examined. Dr. Torrez has advised a sleep study be performed. 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 Bedtime is usually 10pm and rise time is usually about 9am-10am. He estim ates a latency to sleep onset of under a minute. He has nocturia 3-4 times a night and he ge ts back to sleep easily afterwards. He has night sweats but he denies nocturnal heartburn. Anne martinez awakens every morning with a dry mouth and nasal/sinus congestion. He dreams occasionally. He isn't a sleep walker. He did have some apparent dream enactment during sleep but he was taking gabapentin at the time. This was last winter. The gabapentin has been discontinued and his says that the dream enactment has improved. Occasionally he will lift his arms at night during his sleep. He might be talking then too. She has never awakened him to see if he dreams. He denies sleep paralysis. She doesn't think the activiti es are seizures. Usually this is the right arm. His doesn't know what time of night thi s occurs. He denies restlessness in his legs or arms at night. His has not noted that his legs o r arms kick or twitch rhythmically at night after he falls asleep although she has noted dilcia t his right arm will occasionally shake at night after he falls asleep. His says that he snores every night. She has noted that he frequently stops breathing at night. She says that sometimes the breathing will get more and more shallow and then he w ill stop and then start up again. He also can snore and stop breathing and then snort to sta rt up again. In the daytime he feels fatigued and tired. "I just don't have a lot of energy." He naps ab out 3 days a week usually from 2-3:3pm. He doesn't fall asleep driving but his says dilcia t his eyes will close when he drives - "but it seems like I'm not asleep, in my mind." He dr inks about 4 - 5 cups of coffee a day. Occasionally he will also take a "5-Hour Energy Drink ." He does eat a lot of chocolate. He denies cataplexy. Past Medical History: has a past medical history of HBP (high blood pressure); Atrial fibr illation; Heart failure; Hyperlipidemia; Raynaud disease; Fibromyalgia; ASCVD (arteriosclero tic cardiovascular disease); Aortic aneurysm; NOLA (obstructive sleep apnea); and Cancer of v ocal cord (1997). has past surgical history that includes Coronary artery bypass graft (1995); Esophagus allegra marta (1998); Knee arthroscopy (1976); hernia repair (2005); laryngectomy (1997); Kidney ston e surgery; Tracheal surgery (1999); Carpal tunnel release (2011); and basal cell cancer rese ction left year (2011). Allergies Allergen Reactions Diltiazem Hcl Lipitor Propranolol Hcl Current Outpatient Prescriptions Medication Status Sig Dispense Refill acyclovir (ZOVIRAX) 400 MG tablet Active Take 400 mg by mouth 3 times daily as needed. Cholecalciferol (VITAMIN D3) 2000 UNITS CAPS Active Take 2,000 Units by mouth Daily. cyanocobalamin (VITAMIN B-12) 1,000 mcg/mL injection Active injected intramuscularly on ce a month digoxin (LANOXIN) 250 mcg tablet Active Take 250 mcg by mouth Daily. diltiazem (DILT-XR) 120 mg 24 hr capsule Active Take 120 mg by mouth Daily. ferrous sulfate 325 mg tablet Active Take 325 mg by mouth 3 times daily. fluticasone (FLONASE) 50 mcg/nasal spray Active one spray in each nostril daily as need ed guaiFENesin (MUCINEX) 600 mg 12 hr tablet Active Take 1,200 mg by mouth 2 times daily. hydrocodone-acetaminophen (VICODIN ES) 7.5-750 MG per tablet Active 1/2 to 1 tablet fou r times daily levothyroxine (LEVOTHROID) 75 MCG tablet Active Take 75 mcg by mouth Daily. losartan (COZAAR) 100 MG tablet Active Take 100 mg by mouth Daily. methotrexate 2.5 mg tablet Active Take 7.5 mg by mouth Once a week. metoclopramide (REGLAN) 10 mg tablet Active Take 10 mg by mouth 4 times daily as needed . omeprazole (PRILOSEC) 20 mg capsule Active Take 20 mg by mouth 2 times daily. potassium chloride (MICRO-K) 10 mEq CR capsule Active predniSONE (DELTASONE) 5 mg tablet Active Take 2.5 mg by mouth Daily. pregabalin (LYRICA) 50 MG capsule Active Take 50 mg by mouth 3 times daily. rivaroxaban (XARELTO) 20 mg tablet Active Take 20 mg by mouth Daily (with dinner). sertraline (ZOLOFT) 100 mg tablet Active 2 tablets daily tamsulosin (FLOMAX) 0.4 mg CAPS Active Take 0.4 mg by mouth Daily. testosterone cypionate (DEPO-TESTOSTERONE) 200 mg/mL injection Active 200 mg injected i ntramuscularly every 3 weeks Family Medical History: family history includes High blood pressure in his father. indicated that his mother is . He indicated that his father is . He indicat ed that his brother is alive. He indicated that his daughter is alive. He indicated that his son is alive. 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 Review of Systems: Constitutional: Denies unexplained fevers, chills, sweats, significant recent weight rubio ge. Eyes:Denies sudden loss of vision, diplopia, blurred vision. ENT: Denies loss of hearing, vertigo,bleeding gums or poor dental repair. Mild tinnitus Card:Has exertional dyspnea and chest heaviness. Resp: BLANKENSHIP: less than 1 flight GI: Denies nausea, vomiting, abdominal pain, constipation, hematochezia. Occasional diarr hea. : Denies dysuria, pyuria, hematuria, frequency, incontinence MS: Diffuse myalgias and arthralgias Neuro: Denies seizures, strokes, loss of consciousness, dysesthesias or paresthesias, syn cope, concussions. Psych: Mild depression. Endocrine: Denies heat or cold intolerance Heme: Denies easy bruising or prolonged bleeding. Allergic/Immunologic: Denies seasonal allergies PE: BP 106/66 | Pulse 78 | Resp 16 | Ht 1.676 m (5' 6") | Wt 91.944 kg (202 lb 11.2 oz) | B GA 32.72 kg/m2 Gen: obese, alert and not in acute distress HEENT:Head: Normocephalic, no lesions, without obvious abnormality. Eye: Normal external eye, conjunctiva, lids cornea, RHONA. Nose: Normal external nose, mucus membranes and septum. Pharynx: Dental Hygiene adequate. Normal buccal mucosa. Tonsillar grade 0; Mallampati 2-3. Neck / Thyroid: Supple, no masses, nodes, nodules or enlargement. Scars from previous trach eal surgery noted. Pulm: Decreased excursion and expansion bilaterally. Breath sounds are distant. Rhonchi cl ear with coughing. Card: Irregular rate. S1, S2 wnl. 2/6 BRIELLE LLSB. I did not hear diastolic murmurs nor did I hear S3 or S4. GI: soft and normal bowel sounds : Not examined Rectal: Not Examined Ext: peripheral pulses normal, no pedal edema, no clubbing or cyanosis Skin:Not examined Neuro:Grossly normal Psych:age appropriate and casually dressedoriented to time, place and person, mood and aff ect are within normal limits, pt is a good historian; no memory problems were noted Heme: No cervical LN Assessment: NOLA: I suspect that the patient has clinically significant NOLA and that this is likely making his cardiac issues more difficult to manage. I have discussed in detail the p athophysiology of Obstructive Sleep Apnea with the patient. I've discussed that during NREM sleep the skeletal muscles relax and in REM sleep the skeletal muscles are paralyzed. The mu scles that support the back of the throat (the tongue in particular) also relax during NREM sleep and are paralyzed in REM sleep and when this occurs, the back of the throat collapses some. In some patients with a smaller back of the throat, this can result in obstruction to the flow of air. This is fundamentally what occurs in NOLA. This can cause repetitive obstruc tion to the flow of air all night long cause a person with NOLA to awaken repeatedly at night to "open" the back of the throat. If airflow is significantly restricted, blood oxygen leve ls can fall. The combination of the repetitive awakenings at night and low oxygen levels adams d to numerous other physiologic abnormalities which can result in nocturia, nocturnal heartb urn, night sweats, morning dry mouth, morning headache, and daytime fatigue/sleepiness. Sahil tionally, NOLA can cause hypertension and it dramatically increases the risk of heart disease , heart attack, and stroke. It may play a causative role in obesity and AODM. Untreated NOLA also dramatically increases the risk of fall asleep car accidents. Treatment can help with a ll of these issues. The various forms of treatment of NOLA were discussed with the patient in cluding 1) Conservative therapy which typically includes weight loss, avoidance of sleep dep rivation, avoidance of alcohol, avoidance of sedative medications, avoidance of smoking, and positional therapy (non-supine sleeping); 2) Positive Airway Pressure therapy (which is eff ective in the vast majority of patients but compliance can be an issue); 3) Dental Appliance Therapy (which is effective for some patients, typically with mild NOLA, but compliance is t ypically good); 4) Expiratory Positive Airway Pressure - which involves passively increasing EPAP pressures applying a "one-way" valve type device (that looks like a "bandaid") over th e nares at night which can be effective for very mild NOLA; and 5) Surgical intervention - in cluding Phase I surgery (which typically involves T&A, UPPP, Genioglossus Advancement, Hyoid Suspension) and Phase II surgery (Bimandibular-Maxillary Facial Advancement). The surgical solution to NOLA is complicated and typically involves several operations. Central Sleep Apnea: It is also possible that the patient might have Central Sleep Apnea (of the Victoriano-Tomas variety) which can be caused by heart failure but at the same time can make heart failure more difficult to manage. If present, treatment is usually with an "auto -servo" BiPAP device. Atrial Fibrillation: Treating NOLA/CSA, if present, can help. CHF: Treating NOLA/CSA, if present can help. ASCVD: Treating NOLA, if present, can reduce the risk of GA. HBP: Treating NOLA, if present can help. Obesity: Weight loss could be beneficial for most of his medical issues. Parasomnia: The patient does have mild arm movement at night. I suspect his may be second kenneth to an NOLA induced partial arousal. We will observe for abnormal movements during the sle ep study. Plan: PSG as soon as we can arrange it. We will attempt a split-night protocol (unless cent ral apnea is found - in which case a diagnostic PSG will be done). F/u afterwards. Today, 60 minutes was spent face to face with the patient; the majority of time was spent c ounseling. CC: Dr. Knutson, Dr. Torrez documented in is encounter Plan of Treatment +--------+---------+ + [...] | | | | | | [place] [address] | | | | | | [phone] | | | | | | | | +--------+---------+ + + + | 05/19/ | Office | Cardiology | Cristian Mccoy, | | | 2019 | Visit | | MD [address] | | | | | | [place] | | | | | | [address] | | | | | | | | +--------+---------+ + + + documented as of this encounter Visit Diagnoses + + | Diagnosis | + + | NOLA (obstructive sleep apnea) - Primary Obstructive sleep apnea (adult) (pediatric) | + + | Parasomnia Other dysfunctions of sleep stages or arousal from sleep | + + | Heart failure (HCC) Heart failure, unspecified | + + | Atrial fibrillation (HCC) Atrial fibrillation | + + | HBP (high blood pressure) Unspecified essential hypertension | + + | ASCVD (arteriosclerotic cardiovascular disease) Unspecified cardiovascular disease | + + | Raynaud disease Raynaud's syndrome | + + | Fibromyalgia Mylagia and myositis, unspecified | + + | Aortic aneurysm (HCC) Aortic aneurysm of unspecified site without mention of rupture | + + | 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
--- OUTSIDE RECORDS SUMMARY | ~2019-02-20 | XMS | Encounter Summary ---
Demographics + + + | Address | [address] | | | [place] [address] | + + + | Home Phone | | + + + | Preferred Language | Unknown | + + + | Marital Status | | + + + | Sabianism Affiliation | 1028 | + + + | Race | Unknown | + + + | Ethnic Group | Unknown | + + + Author + + + | Author | [facility] | | | and [place] | + + + | Organization | [facility] | | | and [place] | + + + | Address | Unknown | + + + | Phone | Unavailable | + + + Support + + + + + | Name | Relationship | Address | Phone | + + + + + | Blossom Robertson | ECON | [address] | | | | | [place] | | | | | [address] | | + + + + + Care Team Providers + +------+ + | Care Occupational Physician Name | Role | Phone | + +------+ + | Maycol Knutson MD | PCP | | + +------+ + Encounter Details +--------+ + + + + | Date | Type | Department | Care Team | Description | +--------+ + + + + | 12/11/ | Hospital | [facility] | Conversion | Multifocal lung | | 2018 | Encounter | [facility] [address] | Transaction, | consolidation (HCC) | | | | [address] | Provider Unknown | | | | | [place], [place] | [phone] | | | | | [address] | | | | | | [phone] | Mary Rodrigez | | | | | | MD [address] | | | | | | [address] | | | | | | [place] [address] | | | | | | [phone] | | | | | | | [...] 3 mLs by | | 0 | 10/27/19 | | | albuterol-ipratropiu | nebulization every 6 | | | 18 | | | m 2.5-0.5 mg/3 mL | (six) hours as | | | | | | SOLN | needed. [...] predniSONE | Take 4 tablets by | | 0 | 10/27/19 | | | (DELTASONE) 2.5 MG | mouth daily. Takes | | | 18 | 9 | | tablet | 7.5 mg daily | | | | | + [...] | | | | | | [place] [address] | | | | | | [phone] | | | | | | | | +--------+---------+ + + + | 05/19/ | Office | Cardiology | Cristian Mccoy, | | | 2019 | Visit | | [address] | | | | | | [place] [facility] [place] [place] | | | | | | [address] | | | | | | | | +--------+---------+ + + + documented as of this encounter Procedures + +--------+ + + + | Procedure Name | Priori | Date/Time | Associated Diagnosis | Comments | | | ty | | | | + +--------+ + + + | CT CHEST WO CONTRAST | Routin | 12/11/2017 | | Results for this | | | e | 10:56 AM | | procedure are in the | | | | PDT | | results section. | + +--------+ + + + documented in this encounter Results CT Chest wo Contrast (12/11/2017 10:56 AM PDT) + + | Specimen | + + | | + + + + + | Impressions | Performed At | + + + | 1. Scattered residual nodularity of the lungs. There is tree in | | | bud opacity of the left lung base which may represent inflammatory | | | process. The largest nodule of the right middle lobe measuring 0.6 x | | | 0.4 cm. Follow-up CT scan could be obtained in 3-6 months. 2. | | | There is significant improvement of the consolidation from the prior | | | exam dated October 24, 2017 particularly at the left upper lobe and | | | right lung. | | | 12:34 PM | | + + + + + + | Narrative | Performed At | + + + | [facility] 1945 [address] CHEST WO CONTRAST | | | 12/11/2017 10:56 AM HISTORY: Multifocal consolidation and nodules. | | | History of cancer. COMPARISON: October 24, 2017 TECHNIQUE: CT | | | scan of the chest without contrast. 5-mm thick helically acquired | | | axial images were obtained in soft tissue and lung algorithm. | | | Automated exposure control done to minimize dose. FINDINGS: | | | Bilateral centrilobular emphysema. Residual innumerable small | | | tree-in-bud opacity/nodules of the left lower lobe, may represent | | | resolving inflammatory process. The bilateral lung consolidation | | | is significantly improved as compared to the prior examination | | | particularly at the left upper lobe and right lung. There is a | | | persistent nodule of the right middle lobe (2/) measuring 0.6 x 0.4 | | | cm. Pulmonary nodule of the right middle lobe (2/73) measuring 0.5 cm. | | | There are other scattered pulmonary lung nodules of the left upper | | | lobe. Mild atelectasis of the medial aspect of the right lower | | | lobe. Prior Sudarshan fundoplication. No acute abnormality of the | | | visualized portions of the upper abdomen. No acute osseous | | | abnormality. | | + + + + + | Procedure Note | + + | Steven, Rad Conversion - 10/29/2018 4:21 AM PDT [facility] | | CHEST WO CONTRAST12/11/2017 10:56 AM HISTORY: Multifocal consolidation and nodules. | | History of cancer. COMPARISON: October 24, 2017 TECHNIQUE: CT scan of the chest without | | contrast. 5-mm thick helically acquired axial images were obtained in soft tissue and | | lung algorithm. Automated exposure control done to minimize dose. FINDINGS:Bilateral | | centrilobular emphysema. Residual innumerable small tree-in-bud opacity/nodules of the | | left lower lobe, may represent resolving inflammatory process. The bilateral lung | | consolidation is significantly improved as compared to the prior examination | | particularly at the left upper lobe and right lung. There is a persistent nodule of the | | right middle lobe (2/87) measuring 0.6 x 0.4 cm. Pulmonary nodule of the right middle | | lobe (2/73) measuring 0.5 cm. There are other scattered pulmonary lung nodules of the | | left upper lobe. Mild atelectasis of the medial aspect of the right lower lobe. Prior | | Sudarshan fundoplication. No acute abnormality of the visualized portions of the upper | | abdomen. No acute osseous abnormality. IMPRESSION: 1. Scattered residual nodularity of | | the lungs. There is tree in bud opacity of the left lung base which may represent | | inflammatory process. The largest nodule of the right middle lobe measuring 0.6 x 0.4 | | cm. Follow-up CT scan could be obtained in 3-6 months.2. There is significant | | improvement of the consolidation from the prior exam dated October 24, 2017 particularly | | at the left upper lobe and right lung. Electronically signed by Harman Calle MD on | | 12/11/2017 12:34 PM | | | |Mild atelectasis of the medial aspect of the right lower lobe. | | | |Prior Sudarshan fundoplication. | | | |No acute abnormality of the visualized portions of the upper abdomen. | | | |No acute osseous abnormality. | | | |IMPRESSION: | |1. Scattered residual nodularity of the lungs. There is tree in bud opacity of the left jose eduardo ng base which may represent inflammatory process. The largest nodule of the right middle lob e measuring 0.6 x 0.4 cm. Follow-up CT scan could be obtained in 3-6 | |months. | |2. There is significant improvement of the consolidation from the prior exam dated October 24, 2017 particularly at the left upper lobe and right lung. | | | | | + + documented in this encounter Visit Diagnoses + + | Diagnosis | + + | Multifocal lung consolidation (HCC) Pneumococcal pneumonia (streptococcus pneumoniae | | pneumonia) | + + documented in this encounter"
--- OUTSIDE RECORDS SUMMARY | ~2019-02-20 | XMS | Encounter Summary ---
Demographics + + + | Address | [address] | | | [place] [address] | + + + | Home Phone | | + + + | Preferred Language | Unknown | + + + | Marital Status | | + + + | Jewish Affiliation | LUT | + + + | Race | White | + + + | Ethnic Group | Not or | + + + Author + + + | Author | [facility] | + + + | Organization | [facility] | + + + | Address | Unknown | + + + | Phone | Unavailable | + + + Support + + +---------+ + | Name | Relationship | Address | Phone | + + +---------+ + | Blossom Rose | ECON | Unknown | | + + +---------+ + Care Team Providers + +------+ + | Care Fire Extinguisher Sprinkler Inspector Name | Role | Phone | + [...] as of this encounter Progress Notes Interface, Plant Anatomist In - 02/26/2006 5:02 AM PSTCLINIC DATE: [...] back in six weeks. Dylan Arthur M.D. Recreation Therapy Aides Teacher, Otolaryngology Head and Neck Surgery [facility] Cc: Rohan Barragan M.D. Recreation Therapy Aides Teacher General Surgery [id number] signed by Interface, Plant Anatomist In at 02/26/2006 5:02 AM PSTdocume nted in this encounter Plan of Treatment Not on filedocumented as of this encounter Visit Diagnoses Not on filedocumented in this encounter"
--- OUTSIDE RECORDS SUMMARY | ~2019-02-20 | XMS | Encounter Summary ---
Demographics + + + | Address | [address] | | | [place] [address] | + + + | Home Phone | | + + + | Preferred Language | Unknown | + + + | Marital Status | | + + + | Quaker Affiliation | 1028 | + + + | Race | Unknown | + + + | Ethnic Group | Unknown | + + + Author + + + | Author | [facility] | | | and [place] | + + + | Organization | [facility] | | | [...] [place] | | | | | [address] | | + + + + + Care Team Providers + +------+ + | Care User Experience Designer Name | Role | Phone | + +------+ + | Maycol Knutson MD | PCP | | + +------+ + Reason for Visit +--------+ + | Reason | Comments | +--------+ + | Apnea | | +--------+ + Encounter Details +--------+---------+ + + + | Date | Type | Department | Care Team | Description | +--------+---------+ + + + | 04/22/ | Office | [facility] | Aleksandar Tejeda PA | NOLA on CPAP (Primary | | 2014 | Visit | SLEEP DISORDER [address] | [address] | Dx); Victoriano-Wallace | | | | [address] | [place] | respiration | | | | [place] [address] | [address] | | | | | [phone] | | | +--------+---------+ + + + [...] + + + | Blood Pressure | 122/58 | 04/22/2013 11:23 AM | | | | | PST | | + + + + + | Pulse | 64 | 04/22/2013 11:23 AM | | | | | PST | | + + + + + | Temperature | - | - | | + + + + + | Respiratory Rate | 16 | 04/22/2013 11:23 AM | | | | | PST | | + + + + + | Oxygen Saturation | 96% | 04/22/2013 11:23 AM | | | | | PST | | + + + + + | Inhaled Oxygen | - | - | | | Concentration | | | | + + + + + | Weight | 85.7 kg (188 lb 14.4 | 04/22/2013 11:23 AM | | | | oz) | PST | | + + + + + | Height | - | - | | + + + + + | Body Mass Index | 30.49 | 12/15/2012 1:28 PM | | | | | PDT | | + + + + + documented in this encounter Progress Notes Aleksandar Tejeda PA - 04/22/2013 11:22 AM PST Subjective: Patient ID: German Rose is a 68 y.o. male. HPI last office visit was: 03/17/2013 date of polysomnography: 12/22/2012 AHI: 77.4 RDI: 77.4 O2%: 86% with 15.8 minutes below 88% Machine type: Respironics ASV BiPAP with nasal mask ([place]) obtained from: [facility] pressure: EPAP = 4cm;PSmin=0cm;PSmax=25cm;backup rate=auto Nights using BiPAP: 32/36 average usage (all nights): 2:59 average usage (nights used): 3:21 AHI: 2.1 German comes in for BiPAP compliance. He continues to wear his BiPAP on a regular basis, but he has struggled with wearing it for the duration of the night. He has had problems with c ongestion, which makes it very difficult to breathe through his nose. The nasal mask does n ot allow him to breathe through his mouth. He has had to lower his humidity from 4.0 to 2.0 because he has had condensation buildup in his hose. It appears that lowering his humidity has made the congestion problem worse. I have discussed the download in detail. This shows that his sleep apnea is controlled, wi th an AHI of 2.1. It also shows that his leaks are well controlled. Review of Systems Objective: Physical Exam Assessment: Problem #1: OBSTRUCTIVE SLEEP APNEA (ICD 9-327.23) This is controlled with BiPAP. He is wearing his BiPAP regularly, but continues to struggl e with wearing it for the duration of the night. He has had problems with congestion and co ndensation in his hose. 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 Plan: He is to continue with his BiPAP indefinitely. I recommended that he go to [facility] to have hi s heated hose checked/replaced, which should stop his problems with condensation. If his co ngestion continues, he should consider using a full face mask. He is to work toward wearing his BiPAP 100% of the time he is asleep. I will follow up again in 1 month, sooner prn. Fifteen minutes were spent [id number], wi th the majority of time spent in counseling. [...] | | | | | | [place] [address] | | | | | | [phone] | | | | | | | | +--------+---------+ + + + | 05/19/ | Office | Cardiology | Cristian Mccoy, | | | 2019 | Visit | | MD [address] | | | | | | [place] | | | | | | [address] | | | | | | | | +--------+---------+ + + + documented as of this encounter Visit Diagnoses + + | Diagnosis | + + | NOLA on CPAP - Primary Obstructive sleep apnea (adult) (pediatric) | + + | Victoriano-Wallace respiration | + + documented in this encounter"
--- OUTSIDE RECORDS SUMMARY | ~2019-02-20 | XMS | Encounter Summary ---
Demographics + + + | Address | [address] | | | [place] [address] | + + + | Home Phone | | + + + | Preferred Language | Unknown | + + + | Marital Status | | + + + | Episcopal Affiliation | 1028 | + + + | Race | Unknown | + + + | Ethnic Group | Unknown | + + + Author + + + | Author | [facility] | | | and [place] | + + + | Organization | [facility] | | | [...] [place] | | | | | [address] | | + + + + + Care Team Providers + +------+ + | Care Senior Teradata Developer Name | Role | Phone | + +------+ + | Maycol Knutson MD | PCP | | + +------+ + Encounter Details +--------+ + + + + | Date | Type | Department | Care Team | Description | +--------+ + + + + | 04/03/ | Hospital | [facility] | Conversion | Pain | | 2018 | Encounter | CONVERSION [address] | Transaction, | | | | | [address] | Provider Unknown | | | | | [place], [place] | [phone] | | | | | [address] | | | | | | [phone] | | | +--------+ + + + [...] | 03/05/ | Office | Pulmonology | [facility], | | | 2018 | Visit | | Mary Pinto, | | | | | | MD [address] | | | | | | [place], | | | | | | [place] [address] | | | | | | [phone] | | | | | | | | +--------+---------+ + + + | 05/19/ | Office | Cardiology | [place], [place], | | | 2020 | Visit | | [address] | | | | | | [place] | | | | | | [address] | | | | | | | | +--------+---------+ + + + documented as of this encounter Procedures + +--------+ + + + | Procedure Name | Priori | Date/Time | Associated Diagnosis | Comments | | | ty | | | | + +--------+ + + + | MRI CERVICAL SPINE | Routin | 06/18/2017 | | Results for this | | WO CONTRAST | e | 4:45 AM | | procedure are in the | | | | PDT | | results section. | + +--------+ + + + documented in this encounter Results MRI Cervical Spine wo Contrast (06/18/2017 4:45 AM PDT) + + | Specimen | [...]
--- OUTSIDE RECORDS SUMMARY | ~2019-02-20 | XMS | Encounter Summary ---
Demographics + + + | Address | [address] | | | [place] [address] | + + + | Home Phone | | + + + | Preferred Language | Unknown | + + + | Marital Status | | + + + | Amish Affiliation | LUT | + + + [...] Team Providers + +------+ + | Care Friction Paint Machine Tender Name | Role | Phone | + +------+ + | Maycol Knutson MD | PCP | | + +------+ + Encounter Details +--------+ + + + + | Date | Type | Department | Care Team | Description | +--------+ + + + + | 02/16/ | Results | Registration [id number] | | | | 1997 | Only | [address] | | | | | | Leonardo Mailcode: [id number] | | | | | | [place], [place] | | | | | | [address] | | | | | | [phone] | | | +--------+ + + + [...] | + +--------+ + + + | CHEMISTRY TESTS 4 | Routin | 03/04/1998 | | Results for this | | | e | 7:02 AM | | procedure are in the | | | | PST | | results section. | + +--------+ + + + | CBC TESTS 2 | Routin | 03/04/1998 | | Results for this | | | e | 7:02 AM | | procedure are in the | | | | PST | | results section. | + +--------+ + + + | CBC TESTS 2 | Routin | 03/02/1998 | | Results for this | | | e | 4:00 PM | | procedure are in the | | | | PST | | results section. | + +--------+ + + + | CHEMISTRY TESTS 4 | Routin | 02/16/1998 | | Results for this | | | e | 2:41 PM | | procedure are in the | | | | PST | | results section. | + +--------+ + + + documented in this encounter Results CBC TESTS 2 (03/04/1998 7:02 AM PST) + + + + + + | Component | Value | Ref Range | Performed | Pathologist | | | | | At | Signature | + + + + + + | WHITE CELL | 15.6 (H) | K/CU MM | | | | COUNT | | | | | + + + + + + | RED CELL | 4.36 | M/CU MM | | | | COUNT | | | | | + + + + + + | HEMOGLOBIN | 13.8 | GM/DL | | | + + + + + + | HEMATOCRIT | 40.9 | % | | | + + + + + + | MCV | 93.8 | FL | | | + + + + + + | MCH | 31.5 | PG | | | + + + + + + | MCHC | 33.6 | GM/DL | | | + + + + + + | RDW | 12.2 | % | | | + + + + + + | PLATELET | 188. | K/CU MM | | | | COUNT | | | | | + + + + + + | MPV | 9.6 | FL | | | + + + + + + + + | Specimen | + + | | + + + + + + + | Performing | Address | City/State/Zipcode | Phone Number | | Organization | | | | + + + + + | [facility] | [address] | [place] [address] | | | PATHOLOGY | [address] | | | + + + + + CHEMISTRY TESTS 4 (03/04/1998 7:02 AM PST) + + + + + + | Component | Value | Ref Range | Performed | Pathologist | | | | | At | Signature | + + + + + + | SODIUM, | 140. | mmol/l | | | | PLASMA | | | | | | (LAB) | | | | | + + + + + + | POTASSIUM, | 3.9 | mmol/l | | | | PLASMA | | | | | | (LAB) | | | | | + + + + + + | CHLORIDE, | 100. | mmol/l | | | | PLASMA | | | | | | (LAB) | | | | | + + + + + + | TOTAL CO2, | 26. | mmol/l | | | | PLASMA | | | | | | (LAB) | | | | | + + + + + + | BUN, PLASMA | 11. | mg/dL | | | | (LAB) | | | | | + + + + + + | CREATININE | 0.9 | mg/dL | | | | PLASMA | | | | | | (LAB) | | | | | + + + + + + | GLUCOSE, | 147. (H) | mg/dL | | | | PLASMA | | | | | | (LAB) | | | | | + + + + + + + + | Specimen | + + | | + + + + + + + | Performing | Address | City/State/Zipcode | Phone Number | | Organization | | | | + + + + + | [facility] | [address] | [place] [address] | | | PATHOLOGY | [address] | | | + + + + + CBC TESTS 2 (03/02/1998 4:00 PM PST) + + + + + + | Component | Value | Ref Range | Performed | Pathologist | | | | | At | Signature | + + + + + + | WHITE CELL | 8. | K/CU MM | | | | COUNT | | | | | + + + + + + | RED CELL | 4.54 | M/CU MM | | | | COUNT | | | | | + + + + + + | HEMOGLOBIN | 14.4 | GM/DL | | | + + + + + + | HEMATOCRIT | 41.4 | % | | | + + + + + + | MCV | 91.3 | FL | | | + + + + + + | MCH | 31.8 | PG | | | + + + + + + | MCHC | 34.8 (H) | GM/DL | | | + + + + + + | RDW | 12.2 | % | | | + + + + + + | PLATELET | 226. | K/CU MM | | | | COUNT | | | | | + + + + + + | MPV | 9.6 | FL | | | + + + + + + + + | Specimen | + + | | + + + + + + + | Performing | Address | City/State/Zipcode | Phone Number | | Organization | | | | + + + + + | [facility] | [address] | [place] [address] | | | PATHOLOGY | [address] | | | + + + + + CHEMISTRY TESTS 4 (02/16/1998 2:41 PM PST) + + + + + + | Component | Value | Ref Range | Performed | Pathologist | | | | | At | Signature | + + + + + + | SODIUM, | 141. | mmol/l | | | | PLASMA | | | | | | (LAB) | | | | | + + + + + + | POTASSIUM, | 3.8 | mmol/l | | | | PLASMA | | | | | | (LAB) | | | | | + + + + + + | CHLORIDE, | 105. | mmol/l | | | | PLASMA | | | | | | (LAB) | | | | | + + + + + + | TOTAL CO2, | 31. (H) | mmol/l | | | | PLASMA | | | | | | (LAB) | | | | | + + + + + + + + | Specimen | + + | | + + + + + + + | Performing | Address | City/State/Zipcode | Phone Number | | Organization | | | | + + + + + | [facility] | [address] | [place] [address] | | | PATHOLOGY | [address] | | | + + + + + documented in this encounter Visit Diagnoses Not on filedocumented in this encounter"
--- OUTSIDE RECORDS SUMMARY | ~2019-02-20 | XMS | Encounter Summary ---
Demographics + + + | Address | [address] | | | [place] [address] | + + + | Home Phone | | + + + | Preferred Language | Unknown | + + + | Marital Status | | + + + | Gnosticism Affiliation | 1028 | + + + | Race | Unknown | + + + | Ethnic Group | Unknown | + + + Author + + + | Author | [facility] | | | and [place] | + + + | Organization | [facility] | | | and [...] [place] | | | | | [address] | | + + + + + Care Team Providers + +------+ + | Care Wellness Director Name | Role | Phone | + +------+ + | Nelson Laird MD | PCP | | + +------+ + Reason for Visit Diagnostic/Screening (Routine) +--------+--------+ + + + + | Status | Reason | Specialty | Diagnoses / | Referred By | Referred To | | | | | Procedures | Contact | Contact | +--------+--------+ + + + + | Closed | | | Diagnoses | Elia, | [facility] | | | | | Chronic | Mary | Pulmonary | | | | | obstructive | MD Millie | Function Lab | | | | | pulmonary | [address] | | | | | disease, | [address] | [address] | | | | | unspecified | [place] | [place], [place] | | | | | (HCC) | [place], [place] | [address] | | | | | Procedures | [address] | Phone: | | | | | PULM FULL | Phone: | [phone] | | | | | PFT | [phone] | Fax: | | | | | | Fax: | [phone] | | | | | | [phone] | | +--------+--------+ + + + + Encounter Details +--------+ + + + + | Date | Type | Department | Care Team | Description | +--------+ + + + + | 11/20/ | Hospital | [facility] | Elia, | COPD, moderate (HCC) | | 2019 | Encounter | PULMONARY FUNCTION | Mary Pinto, | | | | | LAB [address] | MD [address] | | | | | [facility] | [place], | | | | | [address] | [place] [address] | | | | | [phone] | [phone] | | | | | | | [...] | 0 | | | | (ZOVIRAX) 400 MG [...] + + | albuterol (PROAIR | Inhale into the | | 0 | | | | RESPICLICK) 90 | lungs. | | | | | | mcg/puff inhaler | | | | | | + + + +---------+ + + | | Take 3 mLs by | | 0 | 08/11/20 | | | albuterol-ipratropiu | nebulization every 6 | | | 18 | | | m 2.5-0.5 mg/3 mL | (six) hours as | | | | | | SOLN | needed. | | | | | + + + +---------+ + + | atorvaSTATin | TAKE 1 TABLET BY | | 0 | 06/12/19 | | | (LIPITOR) 40 mg | MOUTH NIGHTLY | | | 19 | 0 | | tablet | | | | | | + + + +---------+ + + | azaTHIOprine | Take 150 mg by mouth | | 0 | | | | (IMURAN) 50 mg | daily. | | | | | | tablet | | | | | | + + + +---------+ + + | | Apply to eye as | | 0 | | | | bacitracin-polymyxin | needed. | | | | | | b (POLYSPORIN) | | | | | | | ophthalmic ointment | | | | | | + + + +---------+ + + | bismuth | Take 262 mg by mouth | | 0 | | | | subsalicylate (PEPTO | 4 (four) times | | | | | | BISMOL) 262 mg | daily before meals | | | | | | chewable tablet | and nightly. | | | | | + + + +---------+ + + | cholecalciferol | Take 1,000 Units by | | 0 | | | | (CHOLECALCIFEROL) | mouth daily. | | | | | | 1000 units TABS | | | | | | + + + +---------+ + + | cyanocobalamin | Take 1,000 mcg by | | 0 | | | | (VITAMIN B-12) 1000 | mouth daily. | | | | | | MCG tablet | | | | | | + + + +---------+ + + | diclofenac | Apply 2 g topically | | 0 | | | | (VOLTAREN) 1% GEL | 4 [...] | | 0 | | | | (PEPCID) 40 MG [...] + + + +---------+ + + | levocetirizine | Take 5 mg by mouth | | 0 | | | | (XYZAL) 5 MG tablet | as needed. | | | | | + [...] | | 0 | | | | 50 mg tablet | daily. [...] route | | 0 | | | | (BACTROBAN) 2% | as needed. Use pea | | | | | | ointment | sized amount in [...] | | 0 | | | | (ZOLOFT) 100 mg | daily. [...] as | | 0 | | | | salicylate | needed. | | | | | | (ASPERCREME) 10% | | | | | | | cream | | | | | | + + + +---------+ + + | rivaroxaban | Take 1 tablet by | | 0 | 03/24/19 | | | (XARELTO) 10 mg | mouth daily. | | | 19 | 9 | | tablet | | [...] | | | | | | [place] [address] | | | | | | [phone] | | | | | | | | +--------+---------+ + + + | 05/19/ | Office | Cardiology | Cristian Mccoy, | | | 2020 | Visit | | MD [address] | | | | | | [place] | | | | | | [address] | | | | | | | | +--------+---------+ + + + documented as of this encounter Procedures + +--------+ + + + | Procedure Name | Priori | Date/Time | Associated Diagnosis | Comments | | | ty | | | | + +--------+ + + + | PFT PULMONARY | Routin | 11/20/2018 | COPD, moderate | Results for this | | FUNCTION TESTING | e | 2:04 PM | ([facility]) | procedure are in the | | ORDERS | | PDT | | results section. | + +--------+ + + + documented in this encounter Results Pulmonary function test full PFT (11/20/2018 2:04 PM PDT) + + + | Narrative | Performed At | + + + | Mary Rodrigez MD 11/20/2018 14:07 PULMONARY | | | FUNCTION TEST NAME: German Rose : 1945 MRN: | | | [id number] REASON FOR TESTING: COPD FINDINGS | | | SPIROMETRY: 1. FEV-1/FVC is 64 2. FEV-1 is 1.97 L or 75% 3. FVC | | | is 3.06L or 84%. 4.There is no significant bronchodilator response. | | | LUNG VOLUMES: 1. TLC is 5.54L or 89%. 2. RV/TLC is 44. | | | DIFFUSING CAPACITY: 1. Diffusing capacity is 10.7mL/mmHg/min or 46% | | | INTERPRETATION: There is a moderate obstruction without | | | significant bronchodilator change. Lung volumes are within normal. | | | Diffusion capacity is severely reduced. There has been some | | | improvement in his TLC but all the other parameters have shown | | | decline compared to a study done in May 2017. Mary | | | Millie Rodrigez MD Pulmonary and Critical Care Medicine [facility] | | | [facility] [address], [address] | | | [place] [address] | | + + + documented in this encounter Visit Diagnoses + + | Diagnosis | + + | COPD, moderate (HCC) Chronic airway obstruction, not elsewhere classified | + + documented in this encounter Administered Medications + +--------+ +--------+------+------+ | Medication Order | MAR | Action | Dose | Rate | Site | | | Action | Date | | | | + +--------+ +--------+------+------+ | albuterol 2.5 mg/3 mL nebulizer | Given | 11/21/19 | 2.5 mg | | | | solution 2.5 mg 2.5 mg, | | 19 1:27 | | | | | Nebulization, RT Once, Fabiola 11/20/18 | | PM PDT | | | | | at 1345, For 1 dose, Dose for | | | | | | | outpatient testing., | | | | | | + +--------+ +--------+------+------+ +---+---+ | | | +---+---+ documented in this encounter"
--- OUTSIDE RECORDS SUMMARY | ~2019-02-20 | XMS | Encounter Summary ---
Demographics + + + | Address | [address] | | | [place] [address] | + + + | Home Phone | | + + + | Preferred Language | Unknown | + + + | Marital Status | | + + + | Mandaeism Affiliation | LUT | + + + | Race | White | + + + | Ethnic Group | Not or | + + + Author + + + | Author | [facility] | + + + | Organization | [facility] | + + + | Address | Unknown | + + + | Phone | Unavailable | + + + Support + + +---------+ + | Name | Relationship | Address | Phone | + + +---------+ + | Blossom Rose | ECON | Unknown | | + + +---------+ + Care Team Providers + +------+ + | Care Veterinary Surgery Technician Name | Role | Phone | + +------+ + | Maycol Knutson MD | PCP | | + +------+ + Encounter Details +--------+ + + + + | Date | Type | Department | Care Team | Description | +--------+ + + + + | 04/25/ | Office | [facility] | Note, [...] as of this encounter Progress Notes Interface, Rfid Strategist In - 02/13/2006 1:10 AM PSTCLINIC DATE: 04/25/1999 SPEECH PATHOLOGY CLINIC Mr. Rose is a 54-year-old male who comes in for preoperative evaluation as he is to undergo a laryngotracheoplasty with rib graft, laryngeal stent, and tracheostomy. He is the patient of Dr. Dylan Arthur. He is accompanied by his today. PREOPERATIVE VOICE: The patient's vocal quality is persistently hoarse and strained. He is, however, 100% intelligible. PREOPERATIVE SWALLOW: The patient does not complain of any swallowing difficulty. He does note that he has an occasional reaction to vinegar-like substances. He states that he feels like his throat is closing off in response to certain acidity. Otherwise, he has a regular diet with thin liquids. He has also been maintaining his weight. The patient seems to have a good understanding of what the surgery involves, discussed with him and his the effects that the surgery might have on his voice quality, and swallowing. The patient asked appropriate questions, and these were addressed at this time. PLAN: We will follow up with Mr. Rose for postoperative rehabilitation of voice and swallowing as medically appropriate. Yuliana Rich M.A. Speech Pathology Fellow [place] / [place] [id number] / [id number] / [id number] / [id number] C: 05/03/1999 ds nterface, Rfid Strategist In - 02/13/2006 1:10 AM PSTCLINIC DATE: 04/25/1999 OTOLARYNGOLOGY HEAD NECK SURGERY CLINIC Mr. Rose is seen back today for preoperative discussion regarding laryngotracheoplasty. He seems to have good understanding of the issues involved. Full PAR was held, and consent was signed. Dylan Arthur M.D. [facility] / [id number] / [id number] / [id number] / [id number] Tdocumented in this encounter Plan of Treatment Not on filedocumented as of this encounter Visit Diagnoses Not on filedocumented in this encounter"
--- OUTSIDE RECORDS SUMMARY | ~2019-02-20 | XMS | Encounter Summary ---
Demographics + + + | Address | [address] | | | [place] [address] | + + + | Home Phone | | + + + | Preferred Language | Unknown | + + + | Marital Status | | + + + | Druze Affiliation | LUT | + + + | Race | White | + + + | Ethnic Group | Not or | + + + Author + + + | Author | [facility] | + + + | Organization | [facility] | + + + | Address | Unknown | + + + | Phone | Unavailable | + + + Support + + +---------+ + | Name | Relationship | Address | Phone | + + +---------+ + | Blossom Rose | ECON | Unknown | | + + +---------+ + Care Team Providers + +------+ + | Care Rivet Machine Operator Name | Role | Phone | + +------+ + | Maycol Callahan MD | PCP | | + +------+ + Encounter Details +--------+ + + + + | Date | Type | Department | Care Team | Description | +--------+ + + + + | 07/07/ | Office | [facility] | Note, [...] as of this encounter Progress Notes Interface, Photogrammetric Engineer In - 03/11/2006 2:31 AM PSTCLINIC DATE: 07/07/1998 OTOLARYNGOLOGY/HEAD AND NECK SURGERY CLINIC SUBJECTIVE: Mr. 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 It has been a month since he completed his radiation. He continues to be troubled by difficulty breathing if he does not take prednisone. He is also significantly troubled by gastroesophageal (GE) symptomatology. PHYSICAL EXAMINATION: On examination today flexible fiberoptic laryngoscopy is done and reveals that his larynx is quite red today over its posterior half, and subglottically he is narrowed approximately 60% in terms of his airway with a band just at the inferior aspect of the cricoid. There is no evidence of recurrent disease. ASSESSMENT: Subglottic stenosis, status post hemilaryngectomy. PLAN: We need to get his reflux under control and do a pH probe test to ensure that this is not an ongoing factor. I have encouraged him to get back on his Prilosec, as he is only taking Zantac, and hopefully he will do this. We will have him come down for a pH probe test and do laryngeal subglottic dilation at that time. He understands the potential need for a tracheotomy at the time of surgery. He also understands that if his symptomatology worsens in the interim, he is to come down and we will perform this more electively. ADDENDUM: A pH probe test will be arranged as soon as possible. The patient will call my private secretary and we will coordinate the surgery around this event. Dylan Arthur M.D. Patrol Supervisor, Otolaryngology Head and Neck Surgery KRIS/susanna cc: AGUSTINA FERNANDEZ MD [address] [facility] [address] MAYCOL CALLAHAN MD [address] [facility] [facility] [address] ANDRE PUGA MD [address] [id number] signed by Interface, Photogrammetric Engineer In at 03/11 2:31 AM PSTdocumented in this encounter Plan of Treatment Not on filedocumented as of this encounter Visit Diagnoses Not on filedocumented in this encounter"
--- OUTSIDE RECORDS SUMMARY | ~2019-02-20 | XMS | Encounter Summary ---
Demographics + + + | Address | [address] | | | [place] [address] | + + + | Home Phone | | + + + | Preferred Language | Unknown | + + + | Marital Status | | + + + | Evangelical Affiliation | LUT | + + + | Race | White | + + + | Ethnic Group | Not or | + + + Author + + + | Author | [facility] | + + + | Organization | [facility] | + + + | Address | Unknown | + + + | Phone | Unavailable | + + + Support + + +---------+ + | Name | Relationship | Address | Phone | + + +---------+ + | Blossom Rose | ECON | Unknown | | + + +---------+ + Care Team Providers + +------+ + | Care Site Physician Name | Role | Phone | [...] as of this encounter Progress Notes Interface, Music Historian In - 02/13/2006 1:10 AM PSTCLINIC DATE: [...] M.A. Speech Pathology Fellow CLIFFORD / [place] [id number] / [id number] / [id number] / [id number] C: 05/03/1999 ds nterface, Music Historian In - 02/13/2006 1:10 AM PSTCLINIC DATE: 04/25/1999 OTOLARYNGOLOGY HEAD NECK SURGERY CLINIC Mr. Rose is seen back today for preoperative discussion regarding laryngotracheoplasty. He seems to have good understanding of the issues involved. Full PAR was held, and consent was signed. Dylan Arthur M.D. [facility] / [id number] / [id number] / [id number] / [id number] Tdocumented in this encounter Plan of Treatment Not on filedocumented as of this encounter Visit Diagnoses Not on filedocumented in this encounter"
--- OUTSIDE RECORDS SUMMARY | ~2019-02-20 | XMS | Encounter Summary ---
Demographics + + + | Address | [address] | | | [place] [address] | + + + | Home Phone | | + + + | Preferred Language | Unknown | + + + | Marital Status | | + + + | Methodist Affiliation | LUT | + + + | Race | White | + + + | Ethnic Group | Not or | + + + Author + + + | Author | [facility] | + + + | Organization | [facility] | + + + | Address | Unknown | + + + | Phone | Unavailable | + + + Support + + +---------+ + | Name | Relationship | Address | Phone | + + +---------+ + | Blossom Rose | ECON | Unknown | | + + +---------+ + Care Team Providers + +------+ + | Care One Piece Expansion Maker Hand Name | Role | Phone | + +------+ + | Maycol Knutson MD | PCP | | + +------+ + Encounter Details +--------+ + + + + | Date | Type | Department | Care Team | Description | +--------+ + + + + | 02/16/ | Office | [facility] | Note, Outpatient | Progress Note | | 1997 | Visit-Trans | MEDICINE | Clinic | [...] as of this encounter Progress Notes Interface, Funeral Director/Embalmer In - 03/22/2006 5:11 AM PSTCLINIC DATE: 02/16/1998 OTOLARYNGOLOGY/HEAD AND NECK SURGERY CLINIC Mr. Rose is seen back preoperatively with respect to the proposed panendoscopy and has a full MS regarding the proposed procedure and consent was signed. I will see him back tomorrow for surgery. Dylan Arthur M.D. Flash Welder, Otolaryngology Head and Neck Surgery KRIS:tania d ocumented in this encounter Plan of Treatment Not on filedocumented as of this encounter Visit Diagnoses Not on filedocumented in this encounter"
--- OUTSIDE RECORDS SUMMARY | ~2019-02-20 | XMS | Encounter Summary ---
Demographics + + + | Address | [address] | | | [place] [address] | + + + | Home Phone | | + + + | Preferred Language | Unknown | + + + | Marital Status | | + + + | Hindu Affiliation | 1028 | + + + | Race | Unknown | + + + | Ethnic Group | Unknown | + + + Author + + + | Author | [facility] | | | and [place] | + + + | Organization | [facility] | | | [...] [place] | | | | | [address] | | + + + + + Care Team Providers + +------+ + | Care Top Screw Name | Role | Phone | + +------+ + | Maycol Knutson MD | PCP | | + +------+ + Reason for Referral Evaluate & Treat (Routine) +--------+ + + + + + | Status | Reason | Specialty | Diagnoses / | Referred By | Referred To | | | | | Procedures | Contact | Contact | +--------+ + + + + + | Closed | Specialty | Sleep | Diagnoses | [place], | [facility] | | | Services | Medicine | [place] | Sharan Sidhu | [place] [address] | | | Required | | sleep apnea | MD [address] | | | | | due to | [address] | [place], | | | | | [place] | [place] | [place] [address] | | | | | s | [place] | Phone: | | | | | respiration | [address] | [phone] | | | | | [place] | Phone: | Fax: | | | | | (obstructive | [phone] | [phone] | | | | | sleep | Fax: | | | | | | apnea) | [phone] | | | | | | Procedures | | | | | | | AK POLYSOM | | | | | | | 6/>YRS SLEEP | | | | | | | 4/> ADDL | | | | | | | SARAH ATTND | | | | | | | NPSG | | | +--------+ + + + + + Reason for Visit +--------+ + | Reason | Comments | +--------+ + | Apnea | | +--------+ + Encounter Details +--------+---------+ + + + | Date | Type | Department | Care Team | Description | +--------+---------+ + + + | 12/02/ | Office | [facility] | Sharan Bruno | Central sleep apnea | | 2014 | Visit | SLEEP DISORDER [address] | MD [address] | due to Victoriano[place]Tomas | | | | [address] [place] | [address] [place] | respiration | | | | [place] [address] | [place] [address] | (Primary Dx); [place] | | | | [phone] | [phone] | (obstructive sleep | | | | | | apnea) | +--------+---------+ + + + Social History [...] + + + | Blood Pressure | 132/64 | 12/02/2014 8:09 AM | | | | | PDT | | + + + + + | Pulse | 68 | 12/02/2014 8:09 AM | | | | | PDT | | + + + + + | Temperature | - | - | | + + + + + | Respiratory Rate | 16 | 12/02/2014 8:09 AM | | | | | PDT | | + + + + + | Oxygen Saturation | 97% | 12/02/2014 8:09 AM | | | | | PDT | | + + + + + | Inhaled Oxygen | - | - | | | Concentration | | | | + + + + + | Weight | 81.9 kg (180 lb 8 | 12/02/2014 8:09 AM | | | | oz) | PDT | | + + + + + | Height | - | - | | + + + + + | Body Mass Index | 27.44 | 11/18/2013 10:00 AM | | | | | PDT | | + + + + + documented in this encounter Progress Notes Sharan Bruno Jr., MD - 12/02/2014 8:17 AM PDTFormatting of this note might be differen t from the original. He had his sinus surgery done on November 04. He isn't wearing his ASVBPAP. He has noted that he feels more alert when he wears his ASVPAP though. Since his surgery he has noted significant improvement in his nasal stuffiness although it hasn't resolved completely. His has noted that his breathing during sleep has improved but she still notices some snoring (not very loud though) and apneas at night. He is sleepin g in the right lateral decubitus position with his head elevated. He states that he still gets some nasal stuffiness when he wears the ASV-PAP which isn't mu ch (only 3 times since the surgery). Past Medical History: has a past medical history of HBP (high blood pressure); Atrial fibr illation (HCC); Heart failure (HCC); Hyperlipidemia; Raynaud disease; Fibromyalgia; ASCVD (a rteriosclerotic cardiovascular disease); Aortic aneurysm (); NOLA (obstructive sleep apnea ); Cancer of vocal cord (HCC) (1997); Parasomnia; and Central sleep apnea due to Victoriano-Stok es respiration. has past surgical history that includes Coronary artery bypass graft (1995); Esophagus allegra marta (1998); Knee arthroscopy (1976); hernia repair (2005); laryngectomy (1997); Kidney ston e surgery; Tracheal surgery (1999); Carpal tunnel release (2011); basal cell cancer resectio n left year (2011); and Nasal sinus surgery (2014). Allergies Allergen Reactions Diltiazem Hcl Lipitor Propranolol Hcl Current Outpatient Prescriptions Medication Sig Dispense Refill acyclovir (ZOVIRAX) 400 MG tablet Take 400 mg by mouth 3 times daily as needed. acyclovir (ZOVIRAX) 5% ointment Apply topically every 3 hours. albuterol (PROAIR HFA) 90 mcg/puff inhaler Inhale 2 puffs into the lungs every 6 hours as needed for Wheezing. Cholecalciferol (VITAMIN D3) 2000 UNITS CAPS Take 2,000 Units by mouth Daily. cyanocobalamin (VITAMIN B-12) 1,000 mcg/mL injection injected intramuscularly once a mo [facility] digoxin (LANOXIN) 250 mcg tablet Take 250 mcg by mouth Daily. 1/2 capsule daily diltiazem (DILT-XR) 120 mg 24 hr capsule Take 120 mg by mouth Daily. ferrous sulfate 325 mg tablet Take 325 [...] 1,200 mg by mouth 2 times daily. levothyroxine (LEVOTHROID) 75 MCG tablet Take 75 mcg by mouth Daily. loratadine (CLARITIN) 10 mg tablet Take 10 mg by mouth Daily. losartan (COZAAR) 100 MG tablet Take 100 mg by mouth Daily. 1/2 daily methotrexate 2.5 mg tablet Take 15 mg by mouth Once a week. metoclopramide (REGLAN) 10 mg tablet Take 10 mg by mouth 4 times daily as needed. nystatin-triamcinolone (MYCOLOG II) cream Apply topically 2 times daily. omeprazole (PRILOSEC) 20 mg capsule Take 20 mg by mouth 2 times daily. oxyCODONE-acetaminophen (PERCOCET) 5-325 mg per tablet Take 1 tablet by mouth every 4 h ours as needed for Pain. potassium citrate (UROCIT-K) 10 mEq SR tablet Take 10 mEq by mouth 2 times daily. predniSONE (DELTASONE) 5 mg tablet Take 5 mg by mouth Daily. pseudoePHEDrine (SUDOGEST) 30 mg tablet Take 30 mg by mouth every 4 hours as needed for Congestion. rivaroxaban (XARELTO) 20 mg tablet Take 20 mg by mouth Daily (with dinner). sertraline (ZOLOFT) 100 mg tablet 2 tablets daily tamsulosin (FLOMAX) 0.4 mg CAPS Take 0.4 mg by mouth 2 times daily. No current facility-administered medications for this visit. Past Surgical History Procedure Laterality Date Coronary artery bypass graft 1995 4 vessel Esophageal surgery 1998 Nas Knee arthroscopy 1977 right knee Hernia repair 2006 Laryngectomy 1998 right vocal cord cancer Kidney stone surgery Tracheal surgery 2000 Reconstruction Carpal tunnel release 2011 bilateral Basal cell cancer resection left year 2012 Nasal sinus surgery 2014 BP 132/64 mmHg | Pulse 68 | Resp 16 | Wt 81.874 kg (180 lb 8 oz) | SpO2 97% A: Central Sleep Apnea + NOLA: I suspect apnea is still present, but I suspect it may have i mproved since surgery. I am suggesting that his PSG be repeated in 4-5 weeks. By then he case uld have recovered nearly fully from surgery. If the apnea is mild, we may well decide not t o treat or perhaps to see if low pressures of CPAP might be helpful rather than ASV-BPAP. He is on [place] for pain and I have encouraged him to minimize the use of this as much as possi ble because this can exacerbate his complex apnea. P: PSG in 4-5 weeks with f/u in 6 weeks. Patient Active Problem List Diagnosis CARPAL TUNNEL SYNDROME HBP (high blood pressure) Atrial fibrillation Heart failure Raynaud disease Fibromyalgia ASCVD (arteriosclerotic cardiovascular disease) Aortic aneurysm NOLA (obstructive sleep apnea) Cancer of vocal cord Parasomnia 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 Today, 15 minutes was spent face to face with the patient; the majority of time was spent c giuliana regarding Complex Apnea. documented in th is encounter Plan of [...] | | | | | | [place] [address] | | | | | | [phone] | | | | | | | | +--------+---------+ + + + | 05/19/ | Office | Cardiology | Cristian Mccoy, | | | 2019 | Visit | | MD [address] | | | | | | [place] | | | | | | [address] | | | | | | | | +--------+---------+ + + + + + +--------+ + + | Name | Type | Priori | Associated Diagnoses | Order Schedule | | | | ty | | | + + +--------+ + + | Ambulatory Referral | Outpatient | Routin | Central sleep | Ordered: 12/02/2014 | | to Sleep Studies | Referral | e | apnea due to | | | | | | Victoriano-Tomas | | | | | | respiration NOLA | | | | | | (obstructive sleep | | | | | | apnea) | | + + +--------+ + + documented as of this encounter Visit Diagnoses + + | Diagnosis | + + | 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 - Primary Victoriano-Tomas | | respiration | + + | NOLA (obstructive sleep apnea) Obstructive sleep apnea (adult) (pediatric) | + + documented in this encounter"
--- OUTSIDE RECORDS SUMMARY | ~2019-02-20 | XMS | Encounter Summary ---
Demographics + + + | Address | [address] | | | [place] [address] | + + + | Home Phone | | + + + | Preferred Language | Unknown | + + + | Marital Status | | + + + | Taoism Affiliation | 1028 | + + + | Race | Unknown | + + + | Ethnic Group | Unknown | + + + Author + + + | Author | [facility] | | | and [place] | + + + | Organization | [facility] | | [...] [place] | | | | | [address] | | + + + + + Care Team Providers + +------+ + | Care Croze Machine Operator Name | Role | Phone | + +------+ + | Maycol Knutson MD | PCP | | + +------+ + Reason for Visit +--------+ + | Reason | Comments | +--------+ + | Apnea | | +--------+ + Encounter Details +--------+---------+ + + + | Date | Type | Department | Care Team | Description | +--------+---------+ + + + | 09/15/ | Office | [facility] | Aleksandar Tejeda PA | [place] | | 2014 | Visit | SLEEP DISORDER [address] | [address] | respiration (Primary | | | | [address] [place] | [place], [place] | Dx); Obstructive | | | | [place] [address] | [id number] | sleep apnea (adult) | | | | [phone] | | (pediatric) | +--------+---------+ + + + Social History [...] + + + | Blood Pressure | 102/66 | 09/15/2013 2:02 PM | | | | | PDT | | + + + + + | Pulse | 68 | 09/15/2013 2:02 PM | | | | | PDT | | + + + + + | Temperature | - | - | | + + + + + | Respiratory Rate | 16 | 09/15/2013 2:02 PM | | | | | PDT | | + + + + + | Oxygen Saturation | 97% | 09/15/2013 2:02 PM | | | | | PDT | | + + + + + | Inhaled Oxygen | - | - | | | Concentration | | | | + + + + + | Weight | 82.2 kg (181 lb 3.2 | 09/15/2013 2:02 PM | | | | oz) | PDT | | + + + + + | Height | - | - | | + + + + + | Body Mass Index | 29.25 | 12/15/2012 1:28 PM | | | | | PDT | | + + + + + documented in this encounter Progress Notes Aleksandar Tejeda PA - 09/15/2013 1:57 PM PDT Subjective: Patient ID: German Rose is a 68 y.o. male. HPI last office visit was: 05/28/2013 date of polysomnography: 12/22/2012 AHI: 77.4 RDI: 77.4 O2%: 86% with 15.8 minutes below 88% Machine type: Respironics ASV BiPAP with nasal mask ([place]) obtained from: [facility] pressure: EPAP = 4cm;PSmin=0cm;PSmax=25cm;backup rate=auto Nights using BiPAP: average usage (all nights): 0:27 average usage (nights used): 2:34 AHI: 1.5 German comes in for BiPAP compliance. He continues to have problems with congestion. He has increased his humidity to the maximum of 5.0, but this has not been helpful. [facility] he is only using a small amount of water, which often indicates that it is not working p roperly. He continues to have dried blood in his nose in the morning when using his BiPAP. He has not been using his BiPAP on most nights. He understands the severity of his apnea a nd the importance of treating it. He did very well during the first few months with his BiP AP. He and his noticed a significant improvement in his sleep quality and his daytime sleepiness and energy. During this time, he was not having congestion problems and he was u sing more water each night. I have discussed the download in detail. This shows that his sleep apnea is controlled, wi th an AHI of 1.5. It also shows that his leaks are well controlled. He has not met the com pliance standard of wearing his BiPAP for >4 hours for 70% or more nights during at least a thirty day period. Review of Systems Objective: Physical Exam Assessment: Problem #1: OBSTRUCTIVE SLEEP APNEA (ICD 9-327.23) This is controlled with BiPAP. He is wearing his BiPAP regularly, but continues to struggl e with wearing it for the duration of the night because of problems with congestion. 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 Plan: He is to continue with his BiPAP indefinitely. I recommended that he take his BiPAP to [facility] [place] to have his humidifier checked and repaired or replaced, if necessary. He would also benefit from seeing an ENT specialist. I will follow up again in 1 month, sooner prn. Fifteen minutes were spent [id number], wi th the majority of time spent [...] | | | | | | [place] [address] | | | | | | [phone] | | | | | | | | +--------+---------+ + + + | 05/19/ | Office | Cardiology | Cristian Mccoy, | | | 2019 | Visit | | MD [address] | | | | | | [place] | | | | | | [address] | | | | | | | | +--------+---------+ + + + documented as of this encounter Visit Diagnoses + + | Diagnosis | + + | Victoriano-Wallace respiration - Primary | + + | Obstructive sleep apnea (adult) (pediatric) | + + documented in this encounter"
--- OUTSIDE RECORDS SUMMARY | ~2019-02-20 | XMS | Encounter Summary ---
Demographics + + + | Address | [address] | | | [place] [address] | + + + | Home Phone [...] Team Providers + +------+ + | Care Unbundler Name | Role | Phone | + +------+ + | Maycol Knutson MD | PCP | | + +------+ + Encounter Details +--------+ + + + + | Date | Type | Department | Care Team | Description | +--------+ + + + + | 04/26/ | Procedure - | | Record, Operation | Operative Report | | 2000 | | | | | | | [...] + + | OPERATION RECORD | | 04/26/1999 | | Results for this | | | | | | procedure are in the | | | | | | results section. | + +--------+ + + + documented in this encounter Results OPERATION RECORD (04/26/1999) + + | Transcriptions | + + | Interface, Beamer Operator In - 02/13/2006 1:10 AM PST | | [place] [address] | | [place], [place] [address] | | [facility] HealthcareOPERATION RECORDMed Rec No.: | | [id number] Date: 04/26/1999Name: Jose Martin Rose SURGEON: | | Dylan Arthur M.D.ASSISTANTS: Cami | | Priyanka Webster, | | PriyankaPREOPERATIVE DIAGNOSIS(ES):Laryngeal stenosis.POSTOPERATIVE DIAGNOSIS(ES):Laryngeal | | stenosis.OPERATIONS PERFORMED:1. Laryngotracheoplasty with costal cartilage graft.2. | | Tracheotomy.SPECIMEN(S) REMOVED:None dictated.INDICATIONS:The patient is a | | 54-year-old gentleman who has a history of squamous cellcarcinoma of the larynx. He | | has had a vertical hemilaryngectomy. He alsohas bad reflux laryngitis. He developed | | a stenosis of his larynx as aresult. He has had multiple dilations with no | | resolution of his symptoms.He is taken to the Operating Room for the above | | procedures.FINDINGS:Autologous rib graft was harvested. He had a posterior as well as | | anteriorgraft placed. Tracheostomy tube 14 size was used for the | | tracheostomy.PROCEDURE:After the patient was correctly identified he was taken to the | | OperatingRoom and placed in the supine position. General anesthesia | | wasadministered and the patient intubated. The table was then turned. Theprior neck | | incision was injected with 1 percent lidocaine with 1:100,000epinephrine. The | | patient was then prepped and draped in the usual sterilefashion.The skin incision | | was made and the subplatysmal skin flap elevatedsuperiorly and inferiorly. The | | strap muscles were identified and they weredivided in the midline. The midline thyroid | | nodule was identified. Thestrap muscles were fairly scarred. These were taken | | off in the midlinelaterally on both sides. The cricoid cartilage was identified and | | split.The Metzenbaum scissors were used to enter the larynx. The cartilage cutsand | | mucosa cuts were then made under direct vision. This was made in amidline fashion. | | The thyroid cartilage was then retracted laterally onboth sides. The posterior | | wall of the larynx was then well-visualized andinjected with 1 percent lidocaine | | with 1:100,000 epinephrine. Theposterior larynx was sectioned sharply through the | | mucosa in the midline.The cricoid cartilage was cut in the midline posteriorly.The | | tracheotomy was then performed. The midline strap incision wascontinued | | inferiorly. The anterior face of the trachea was wellidentified. This was | | retracted superiorly. Tracheotomy was performed justunder approximately the third | | trachea ring. The 2-0 silk stitch was placedthrough this inferior ring. The | | endotracheal tube was then placed in thetrachea and sewed down.The rib cartilage was | | then harvested. An incision was made over the thirdrib. The electrocautery was used | | to dissect the soft tissue and muscleuntil the rib was identified. The periosteal | | elevator was used to elevatein a supraperiosteal plane over the rib. The rib | | guillotine was then usedto section the rib proximally and distally and the rib removed. | | Hemostasiswas assured. This wound was then closed in layers using a 3-0 Vicryl | | forthe deep tissue and 4-0 subcuticular stitch for the skin.The posterior graft was then | | carved out of the rib cartilage. A smallledge was used on both sides. The | | perichondrium was placed to face intoward the mucosal edge. It was placed between | | the posterior edges of thecricoid. It fit well. The anterior rib graft was then | | carved in a taperedfashion. Again the mucosal edge was faced inward and ledges were | | made onboth sides. It was seated into the larynx and three 2-0 Prolene on eachside | | were placed and the graft parachuted down a tied. Before the graftwas tied down, a | | tracheostomy tube was inserted through the tracheotomysite and the T-portion brought | | out through a separate skin incision.The strap muscles were then closed along the | | midline. The platysmal layerwas then closed. The skin was closed with 5-0 nylon. | | The wound was thendressed with a fluff and a Noah wrap. The patient was taken to the | | PostAnesthesia Care Unit after he was awake and in good condition.COUNTS:The final | | count was correct.ATTENDING SURGEON'S ATTESTATION:Pursuant to Federal Medicare | | guidelines, Dr. Dylan Arthur was present forall spicer portions of the case.Cami | | Priyanka Webster M.D.CY:xt4D: 04/26/1999T: 04/26/[id number]: | |The Metzenbaum scissors were used to enter the larynx. The cartilage cuts | |and mucosa cuts were then made under direct vision. This was made in a | |midline fashion. The thyroid cartilage was then retracted laterally on | |both sides. The posterior wall of the larynx was then well-visualized and | |injected with 1 percent lidocaine with 1:100,000 epinephrine. The | |posterior larynx was sectioned sharply through the mucosa in the midline. | |The cricoid cartilage was cut in the midline posteriorly. | | | |The tracheotomy was then performed. The midline strap incision was | |continued inferiorly. The anterior face of the trachea was well | |identified. This was retracted superiorly. Tracheotomy was performed just | |under approximately the third trachea ring. The 2-0 silk stitch was placed | |through this inferior ring. The endotracheal tube was then placed in the | |trachea and sewed down. | | | |The rib cartilage was then harvested. An incision was made over the third | |rib. The electrocautery was used to dissect the soft tissue and muscle | |until the rib was identified. The periosteal elevator was used to elevate | |in a supraperiosteal plane over the rib. The rib guillotine was then used | |to section the rib proximally and distally and the rib removed. Hemostasis | |was assured. This wound was then closed in layers using a 3-0 Vicryl for | |the deep tissue and 4-0 subcuticular stitch for the skin. | | | |The posterior graft was then carved out of the rib cartilage. A small | |ledge was used on both sides. The perichondrium was placed to face in | |toward the mucosal edge. It was placed between the posterior edges of the | |cricoid. It fit well. The anterior rib graft was then carved in a tapered | |fashion. Again the mucosal edge was faced inward and ledges were made on | |both sides. It was seated into the larynx and three 2-0 Prolene on each | |side were placed and the graft parachuted down a tied. Before the graft | |was tied down, a tracheostomy tube was inserted through the tracheotomy | |site and the T-portion brought out through a separate skin incision. | | | |The strap muscles were then closed along the midline. The platysmal layer | |was then closed. The skin was closed with 5-0 nylon. The wound was then | |dressed with a fluff and a Noah wrap. The patient was taken to the Post | |Anesthesia Care Unit after he was awake and in good condition. | | | |COUNTS: | |The final count was correct. | | | |ATTENDING SURGEON'S ATTESTATION: | |Pursuant to Federal Medicare guidelines, Dr. Dylan Arthur was present for | |all spicer portions of the case. | | | | | | | |Cami Webster M.D. Dylan Arthur M.D. | | | |CY:xt4 | | | | | | | | | | | | | |[id number] | | | |CC: | + + documented in this encounter Visit Diagnoses Not on filedocumented in this encounter"
--- OUTSIDE RECORDS SUMMARY | ~2019-02-20 | XMS | Encounter Summary ---
Demographics + + + | Address | [address] | | | [place] [address] | + + + | Home Phone | | + + + | Preferred Language | Unknown | + + + | Marital Status | | + + + | Church Affiliation | 1028 | + + + | Race | Unknown | + + + | Ethnic Group | Unknown | + + + Author + + + | Author | [facility] | | | and [place] | + + + | Organization | [facility] | | | [...] [place] | | | | | [address] | | + + + + + Care Team Providers + +------+ + | Care Kiln Charger Name | Role | Phone | + +------+ + | Maycol Knutson MD | PCP | | + +------+ + Encounter Details +--------+ + + + + | Date | Type | Department | Care Team | Description | +--------+ + + + + | 11/04/ | Hospital | [facility] | Adal Corrales, | Chronic maxillary | | 2015 | Encounter [facility] | DO | sinusitis; Chronic | | | | [address] | | frontal sinusitis | | | | [place], [place] | | | | | | [address] | | | | | | [phone] | | | +--------+ + + + [...] documented as of this encounter Progress Notes Keyonna Lopez, Provider Unknown - 11/04/2014 1:55 PM PDTFormatting of this note m ight be different from the original. Progress Notes by Dina Cisneros RN at 11/04/14 2703 Author: Dina Cisneros RN Service: (none) Author Type: Registered Nurse Filed: 11/04/14 3367 Date of Service: 11/04/14 8070 Status: Signed Pantograph Setter: Dina Cisneros RN (Registered Nurse) Noted 3 small skin tears on patient's right upper arm. I put an eye patch over it per patie nts request. Asked if he wanted to have it looked at and he declined, "stating it happens ." docume nted in this encounter Plan of Treatment +--------+---------+ + + + | Date | Type | Specialty | Care Team | Description | +--------+---------+ + + + | 03/05/ | Office | Pulmonology | Elia, | | | 2018 | Visit | | Mary Raose, | | | | | | [address] | | | | | | [place], | | | | | | [place] [address] | | | | | | [phone] | | | | | | | | +--------+---------+ + + + | 05/19/ | Office | Cardiology | Cristian Mccoy, | | | 2019 | Visit | | [address] | | | | | | [place] | | | | | | [address] | | | | | | | | +--------+---------+ + + + documented as of this encounter Visit Diagnoses + + | Diagnosis | + + | Chronic maxillary sinusitis | + + | Chronic frontal sinusitis | + + documented in this encounter
--- OUTSIDE RECORDS SUMMARY | ~2019-02-20 | XMS | Encounter Summary ---
Demographics + + + | Address | [address] | | | [place] [address] | + + + | Home Phone | | + + + | Preferred Language | Unknown | + + + | Marital Status | | + + + | Roman Catholic Affiliation | LUT | + + + [...] Team Providers + +------+ + | Care Technical Communicator Name | Role | Phone | + +------+ + | Maycol Callahan MD | PCP | | + +------+ + Encounter Details +--------+ + + + + | Date | Type | Department | Care Team | Description | +--------+ + + + + | 03/08/ | Discharge | | Summary, Discharge | D/C Summary ODDS | | 1998 | Summary-Tra | | | | | | nscribed | | | | +--------+ + + [...] + + documented as of this encounter Discharge Summaries Interface, Assistant Statistician In - 03/22/2006 5:[address] [address] [facility] MEDICAL SUMMARY OF HOSPITALIZATION Med Rec No: [id number] Admission Date: 03/03/1998 Name: German Rose Discharge Date: 03/08/1998 STAFF PHYSICIAN: Dylan Arthur M.D. 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 ADDITIONAL DIAGNOSES: 1. Hypertension. 2. Arthritis. 3. Nephrolithiasis. 4. Hyperlipidemia. 5. Coronary artery disease, status post coronary artery bypass graft x 4 in December of 1995. PRINCIPAL PROCEDURE: Right hemilaryngectomy. ADDITIONAL PROCEDURES: 1. Trach placed 03/03/98, removed 03/06/98. 2. Dobbhoff placed and removed. 3. Speech, Occupational Therapy, Physical Therapy and Nutrition consults. REASON FOR ADMISSION: Mr. Roes is a 52-year-old gentleman with complaint of twelve months of hoarseness. He has been followed for the past year for a true vocal cord lesion with treatments, including laser surgery x 2. He was referred to Dr. Arthur in January of 1998 for further evaluation. 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 He is being admitted for right vertical hemilaryngectomy. HOSPITAL COURSE: The patient was admitted to the hospital on 03/03/98 where he underwent a right hemilaryngectomy, tracheostomy and Dobbhoff placement. The patient tolerated the procedure well without complication. Postoperatively, he was transferred to the surgical peng where he had an unremarkable hospital course. The final pathology on frozen section intraoperatively showed negative margins for squamous cell carcinoma. The patient was rapidly advanced from trach to metal trach to decannulation by postoperative day five. Speech Therapy noted no difficulty in swallowing. A Dobbhoff was taken out on postoperative day number five. The patient was discharged from the hospital on postoperative day five, ambulating without difficulty, with good p.o. intake, without aspiration. He was controlled on p.o. medications. Incisions were clean, dry and intact. Sutures were removed. CONDITION ON DISCHARGE: Stable to home in [place], [place] with . DISCHARGE MEDICATION(S): 1. Augmentin 875 mg p.o. b.i.d. x seven days. 2. Zantac 150 mg p.o. b.i.d. 3. Lipitor 10 mg q.d. 4. Multivitamin p.o. q.d. 5. Vicodin 1-2 tabs p.o. q.4h. p.r.n. 6. Norvasc 10 mg p.o. q.d. DISCHARGE INSTRUCTION(S): DIET: Regular. ACTIVITY: Ad ayla. FOLLOWUP: With Dr. Arthur in two weeks in the ENT Clinic with speech evaluation and swallowing at that time as well. Kelby Borjas M.D. Dylan Arthur M.D. Resident, Pediatric Surgery Graphic Designer, Otolaryngology Head and Neck Surgery AKILAH/gurinder A cc: MAYCOL CALLAHAN MD [address] [place] [id number] signed by Interface, Assistant Statistician In at 03/22/2006 5:11 AM PSTdocumented in this encounter Plan of Treatment Not on filedocumented as of this encounter Visit Diagnoses Not on filedocumented in this encounter"
--- OUTSIDE RECORDS SUMMARY | ~2019-02-20 | XMS | Encounter Summary ---
Demographics + + + | Address | [address] | | | [place] [address] | + + + | Home Phone | | + + + | Preferred Language | Unknown | + + + | Marital Status | | + + + | Yazidism Affiliation | LUT | + + + [...] Team Providers + +------+ + | Care Emergency Department Physician Name | Role | Phone | + +------+ + | Maycol Knutson MD | PCP | | + +------+ + Encounter Details +--------+ + + + + | Date | Type | Department | Care Team | Description | +--------+ + + + + | 03/23/ | Office | [facility] | Note, [...] as of this encounter Progress Notes Interface, Operator Assistant I Cementing In - 02/15/2006 5:09 AM PSTCLINIC DATE: 03/23/1999 OTOLARYNGOLOGY HEAD AND NECK SURGERY SUBJECTIVE: Mr. Rose is seen back for followup of pH probe monitoring prior to otolaryngotracheoplasty. I placed a pH probe using flexible fiberoptic laryngoscopic control, securing the upper probe at the cricopharyngeus and answered a series of questions relating to proposed surgery. They will call me next week for the results of the pH probe. Dylan Arthur M.D. KRIS / [id number] / [id number] / [id number] / [id number] Tdocumented in this encounter Plan of Treatment Not on filedocumented as of this encounter Visit Diagnoses Not on filedocumented in this encounter"
--- OUTSIDE RECORDS SUMMARY | ~2019-02-20 | XMS | Encounter Summary ---
Demographics + + + | Address | [address] | | | [place] [address] | + + + | Home Phone | | + + + | Preferred Language | Unknown | + + + | Marital Status | | + + + | Sikh Affiliation | 1028 | + + + | Race | Unknown | + + + | Ethnic Group | Unknown | + + + Author + + + | Author | [facility] | | | and [place] | + + + | Organization | [facility] | | | and [...] [place] | | | | | [address] | | + + + + + Care Team Providers + +------+ + | Care Plumbing Manager Name | Role | Phone | + +------+ + | Maycol Knutson MD | PCP | | + +------+ + Encounter Details +--------+ + + + + | Date | Type | Department | Care Team | Description | +--------+ + + + + | 06/09/ | Hospital | [facility] | Conversion | 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 | [facility] [address] | Transaction, | consolidation (HCC); | | | | [address] | Provider Unknown | Incidental | | | | [place], [place] | [phone] | pulmonary nodule, > | | | | [address] | | 3mm and < 8mm | | | | [phone] | Mary Rodrigez | | | | | | MD Millie [address] | | | | | | [address] | | | | | | [place] [address] | | | | | | [phone] | | | | | | | [...] Daily. 1/2 | | | | | | | [...] Raose, | | | | | | MD [address] | | | | | | [place], | | | | | | [place] [address] | | | | | | [phone] | | | | | | | | +--------+---------+ + + + | 05/19/ | Office | Cardiology | Cristian Mccoy, | | | 2019 | Visit | | MD [address] | | | | | | [place] | | | | | | [address] | | | | | | | | +--------+---------+ + + + documented as of this encounter Procedures + +--------+ + + + | Procedure Name | Priori | Date/Time | Associated Diagnosis | Comments | | | ty | | | | + +--------+ + + + | CT CHEST WO CONTRAST | Routin | 06/09/2018 | | Results for this | | | e | 10:27 AM | | procedure are in the | | | | PDT | | results section. | + +--------+ + + + documented in this encounter Results CT Chest wo Contrast (06/09/2018 10:27 AM PDT) + + | Specimen | + + | | + + + + + | Impressions | Performed At | + + + | 1. Stable right middle lobe nodule, as above. This document | | | stability for 6 months. Six-month follow-up chest CT recommended. | | | 2. Other chronic findings, as above. Signed by: Roel Lerma Sign | | | Date/Time: 06/09/2018 2:39 PM | | + + + + + + | Narrative | Performed At | + + + | CT CHEST WITHOUT CONTRAST CLINICAL INFORMATION: Pulmonary nodule | | | in the right middle lobe L in a patient who has high risk for lung | | | cancer. Please are no comparison COMPARISON: CT CHEST WO CONTRAST | | | (12/11/2017); CT CHEST WO CONTRAST (10/24/2017); PROCEDURE: Axial | | | images through the chest. Multiplanar reconstructions. At least one | | | of the following CT dose optimization techniques were used: Automated | | | exposure control; Adjustment of mA and/or kV according to patient | | | size; Use of iterative reconstruction technique. FINDINGS: Lungs, | | | Pleura and Airways: A right middle lobe parenchymal lung nodule is | | | seen measuring 13 x 6 mm, on image 90, series 3, previously and | | | retrospectively measured at 13 x 5 mm, relatively unchanged. | | | Centrilobular emphysematous disease is seen, somewhat diffuse greatest | | | in the upper lobes, moderate in degree. Mediastinum: Moderate | | | cardiac enlargement. Moderate to severe coronary artery | | | calcifications, with median sternotomy wires. No thoracic aortic | | | aneurysm, with moderate thoracic aortic calcification and proximal | | | great branch vessel calcification. Mild pulmonary arterial trunk | | | dilatation to 33 mm, suggesting underlying pulmonary arterial | | | hypertension. Lymph Nodes: No adenopathy. Upper Abdomen: A small | | | hiatal hernia is seen. BODY WALL Soft Tissues: The soft tissues of | | | the chest wall are unremarkable. Bones: No acute fracture or | | | vertebral end plate destruction. No lytic or blastic lesion. | | + + + + + | Procedure Note | + + | Steven, Rad Conversion - 10/28/2018 4:[address]ST WITHOUT CONTRAST | | CLINICAL INFORMATION: | | Pulmonary nodule in the right middle lobe L in a patient who has high | | risk for lung cancer. Please are no comparison | | COMPARISON: | | CT CHEST WO CONTRAST (12/11/2017); CT CHEST WO CONTRAST (10/24/2017); | | PROCEDURE: | | Axial images through the chest. Multiplanar reconstructions. | | At least one of the following CT dose optimization techniques were | | used: Automated exposure control; Adjustment of mA and/or kV according | | to patient size; Use of iterative reconstruction technique. | | FINDINGS: | | Lungs, Pleura and Airways: A right middle lobe parenchymal lung nodule | | is seen measuring 13 x 6 mm, on image 90, series 3, previously and | | retrospectively measured at 13 x 5 mm, relatively unchanged. | | Centrilobular emphysematous disease is seen, somewhat diffuse greatest | | in the upper lobes, moderate in degree. | | Mediastinum: Moderate cardiac enlargement. Moderate to severe coronary | | artery calcifications, with median sternotomy wires. No thoracic | | aortic aneurysm, with moderate thoracic aortic calcification and | | proximal great branch vessel calcification. Mild pulmonary arterial | | trunk dilatation to 33 mm, suggesting underlying pulmonary arterial | | hypertension. | | Lymph Nodes: No adenopathy. | | Upper Abdomen: A small hiatal hernia is seen. | | BODY WALL | | Soft Tissues: The soft tissues of the chest wall are unremarkable. | | Bones: No acute fracture or vertebral end plate destruction. No lytic | | or blastic lesion. | | IMPRESSION: | | 1. Stable right middle lobe nodule, as above. This document stability | | for 6 months. Six-month follow-up chest CT recommended. | | 2. Other chronic findings, as above. | | Signed by: Roel Lerma | | Sign Date/Time: 06/09/2018 2:39 PM | + + documented in this encounter Visit Diagnoses + + | Diagnosis | + + | Multifocal lung consolidation (HCC) Pneumococcal pneumonia (streptococcus pneumoniae | | pneumonia) | + + | Incidental pulmonary nodule, > 3mm and < 8mm Solitary pulmonary nodule | + + documented in this encounter"
--- OUTSIDE RECORDS SUMMARY | ~2019-02-20 | XMS | Encounter Summary ---
Demographics + + + | Address | [address] | | | [place] [address] | + + + | Home Phone | | + + + | Preferred Language | Unknown | + + + | Marital Status | | + + + | Mosque Affiliation | LUT | + + + | Race | White | + + + | Ethnic Group | Not or | + + + Author + + + | Author | [facility] | + + + | Organization | [facility] | + + + | Address | Unknown | + + + | Phone | Unavailable | + + + Support + + +---------+ + | Name | Relationship | Address | Phone | + + +---------+ + | Blossom Rose | ECON | Unknown | | + + +---------+ + Care Team Providers + +------+ + | Care Benzene Operator Name | Role | Phone | + +------+ + | Maycol Knutson MD | PCP | | + +------+ + Encounter Details +--------+ + + + + | Date | Type | Department | Care Team | Description | +--------+ + + + + | 01/28/ | Office | [facility] | Note, [...] as of this encounter Progress Notes Interface, Revenue Collector In - 03/25/2006 3:15 AM PSTCLINIC DATE: 01/28/1998 OTOLARYNGOLOGY CLINIC SUMMARY: Mr. Rose's slides were reviewed with Dr. Cole. There was not sufficient tissue to establish a diagnosis of malignancy. This is in contradistinction of the CT scan which suggests a rather deep mass. While it is possible this is inflammatory postbiopsy, I am highly suspicious that there may be further tissue underneath the surface and we will need to re-biopsy unless all the changes resolve clinically. I will discuss this with Mr. Rose. Dylan Arthur M.D. Loom Repairer, Otolaryngology Head and Neck Surgery [facility]/dat SSA Perez, Revenue Collector In - 03/16/2006 3:04 AM PSTCLINIC DATE: 01/28/1998 OTOLARYNGOLOGY CLINIC I have reviewed Mr. Rose's films with Dr. Fisher, and there does appear to be a mass lesion within the vocal cord itself, and although this certainly could be due to edema, I am very worried about the possibility of carcinoma. A final review of his pathology is still pending here, and if there is any question of invasion, then I think he will need to come back for re-biopsy after he has had the chance to heal from the edema of this one. Dylan Arthur M.D. Loom Repairer, Otolaryngology Head and Neck Surgery [facility] /karen do cumented in this encounter Plan of Treatment Not on filedocumented as of this encounter Visit Diagnoses Not on filedocumented in this encounter"
--- OUTSIDE RECORDS SUMMARY | ~2019-02-20 | XMS | Encounter Summary ---
Demographics + + + | Address | [address] | | | [place] [address] | + + + | Home Phone [...] Team Providers + +------+ + | Care Manager Labor Delivery Name | Role | Phone | + +------+ + | Maycol Knutson MD | PCP | | + +------+ + Encounter Details +--------+ + + + + | Date | Type | Department | Care Team | Description | +--------+ + + + + | 01/21/ | Office | [facility] | Note, [...] as of this encounter Progress Notes Interface, Umbrella Repairer In - 03/25/2006 3:15 AM PSTCLINIC DATE: 01/21/1998 OTOLARYNGOLOGY CLINIC CHIEF COMPLAINT: Hoarseness. HISTORY OF PRESENT ILLNESS: The patient is a 52-year-old gentleman who has noted the onset of hoarseness since February. He states that he was treated with some antibiotics but this did not improve the situation. He denies any weight loss. He does complain of occasional soreness in the mornings but this usually resolves on its own, especially on the right side. He denies any problems swallowing. He denies any ear pain. He does describe some occasional difficulty with breathing because of some thick secretions. He has had a vocal cord scraping on 10/29/97 which showed dysplasia. He was seen by Dr. Damien sexton and two months later underwent a laser treatment of this area. He was sent here for further evaluation and treatment. The second laser biopsy showed carcinoma in situ on the right side. The patient denies any acid reflux symptoms though he has a history of ulcers and has been on Zantac for approximately five years. REVIEW OF SYSTEMS: Review of systems is positive for occasional shortness of breath; otherwise as per history of illness. PAST MEDICAL HISTORY: Past medical history is significant for: 1. Hypertension. 2. Arthritis. 3. Renal stones. 4. Hyperlipidemia. Surgeries include a quadruple bypass in December 1995. CURRENT MEDICATIONS: 1. Zantac 150 twice a day. 2. Norvasc 10 mg once a day. 3. Lipitor 10 mg one a day. 4. Baby aspirin one a day. 5. Vitamins one q.d. 6. He is currently on a prescription for Zithromax as well as prednisone. ALLERGIES: Beta-blockers. SOCIAL HISTORY: The patient is and lives in [place], [place]. He has three children with one still living at home. 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 He has a history of smoking, approximately a 30 pack year though he quit after his bypass surgery. He has occasional alcohol. FAMILY HISTORY: Significant for breast cancer in his mother. OBJECTIVE: On exam, in general, he is a well-developed, well-nourished white male in no acute distress. VITALS: Height 5 feet 8 inches, weight 134. EYES: Pupils equal, round, and reactive to light. Extraocular motions are intact. NOSE: Mucosa is pink. No mucal pus. ORAL CAVITY/OROPHARYNX: He has his own teeth. No oral mucosa lesions are noted. NECK: No lymphadenopathy. EARS: External canals are normal. Tympanic membranes are visible and no fluid behind them. Nasal cavity was sprayed with Phenylephrine and Lidocaine and a nasopharyngoscopy was performed. The cords are mobile bilaterally. The right side has an erythematous mucosa just over the false cord. 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 Pathology reports were reviewed and again moderate dysplasia to severe dysplasia was noted with some carcinoma in situ on his last biopsy and dysplasia noted and also with some carcinoma in situ noted in the October biopsy. 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 He currently has a very edematous and erythematous right true and false cord. There is a question whether there is some submucosal process under this. He also has evidence of some reflux. We will start him on Prilosec 20 mg twice a day. We will get a CT scan of his neck and larynx. This will be done today. We will have him call back next week for the CT results and have him return in three to four weeks to re-examine the cords. Dr. Dylan Arthur, attending, was present for the history and physical. Cami Webster M.D. Resident, Otolaryngology Head and Neck Surgery Dylan Arthur M.D. Vpk Teacher, Otolaryngology Head and Neck Surgery CY/rel C: 01/28/98 ds P STIntwilliam, Umbrella Repairer In - 03/25/2006 3:[address] [facility] DATE: 01/21/1998 OTOLARYNGOLOGY CLINIC: SUBJECTIVE: Mr. Rose is seen in consultation from Dr. Moisés Quezada. I first saw this patient with my senior resident, Dr. Cami Webster and the details of my interaction with the patient are outlined in her note as well as my conclusions and plans, history of present illness, past medical history, personal and social history, family history, review of systems, and complete examination of the head and neck including flexible fiberoptic laryngoscopy. I have his slides here, which I will review with the pathologist personally so that we can determine the depth of invasion. SUMMARY: A summary of my findings: This is a healthy 53-year-old gentleman with a lesion on his right true vocal cord which is recurrent and now, questionably, shows squamous cell carcinoma with in situ disease. He has a chronic history of hoarseness and probably has gastroesophageal reflux in association with this. He used to smoke, but quit almost two years ago before this lesion really became problematic. There really are no other contributing factors except, perhaps some vocal abuse. He is otherwise in reasonable health except for a history of coronary artery disease. PHYSICAL EXAMINATION: The significant findings are limited to the larynx on flexible fiberoptic laryngoscopy. There is significant swelling of the right true vocal cord with overlying erythema and some leukoplakia anteriorly. This is effacing the right ventricle but does not appear to significantly interfere in any way with the movement of the vocal cord itself. He, however, is hoarse because the mass effect of the cord prevents the contralateral cord from opposing it along its full extent. PLAN: Get a CT scan to determine whether or not there could be a lesion deeper within the cord, to review the slides here to determine whether or not there is a true risk of squamous cell carcinoma here, and to recheck him in three to four weeks, after he is healed, on a regimen of Prilosec. He does have significant hyperkeratosis in his posterior commissure, suggesting that this may an etiologic factor and probably is contributing to his symptoms of postnasal discharge as well. I will see him back in three weeks. Dylan Arthur M.D. Vpk Teacher, Otolaryngology Head and Neck Surgery [facility]/josette d ocumented in this encounter Plan of Treatment Not on filedocumented as of this encounter Visit Diagnoses Not on filedocumented in this encounter"
--- OUTSIDE RECORDS SUMMARY | ~2019-02-20 | XMS | Encounter Summary ---
Demographics + + + | Address | [address] | | | [place] [address] | + + + | Home Phone | | + + + | Preferred Language | Unknown | + + + | Marital Status | | + + + | Anabaptism Affiliation | 1028 | + + + | Race | Unknown | + + + | Ethnic Group | Unknown | + + + Author + + + | Author | [facility] | | | and [place] | + + + | Organization | [facility] | | | [...] [place] | | | | | [address] | | + + + + + Care Team Providers + +------+ + | Care Cisco Network Engineer Name | Role | Phone | + +------+ + | Maycol Knutosn MD | PCP | | + +------+ + Encounter Details +--------+ + + + + | Date | Type | Department | Care Team | Description | +--------+ + + + + | 08/01/ | Hospital | [facility] | Conversion | Pain | | 2018 | Encounter | CONVERSION [address] | Transaction, | | | | | [address] | Provider Unknown | | | | | [place], [place] | [phone] | | | | | [address] | | | | | | [phone] | | | +--------+ + + + [...] | | | | | | [place] [address] | | | | | | [phone] | | | | | | | | +--------+---------+ + + + | 05/19/ | Office | Cardiology | Nadine Paulvirgilio, | | | 2019 | Visit | | [address] | | | | | | [place] | | | | | | [address] | | | | | | | | +--------+---------+ + + + documented as of this encounter Procedures + +--------+ + + + | Procedure Name | Priori | Date/Time | Associated Diagnosis | Comments | | | ty | | | | + +--------+ + + + | NM MYOCARDIAL | Routin | 10/14/2017 | | Results for this | | PERFUSION SPECT | e | 1:12 AM | | procedure are in the | | STRESS | | PDT | | results section. | + +--------+ + + + documented in this encounter Results NM Myocardial Perfusion SPECT Stress (10/14/2017 1:12 AM PDT) + + | Specimen | [...]
--- OUTSIDE RECORDS SUMMARY | ~2019-02-20 | XMS | Encounter Summary ---
Demographics + + + | Address | [address] | | | [place] [address] | + + + | Home Phone | | + + + | Preferred Language | Unknown | + + + | Marital Status | | + + + | Islam Affiliation | 1028 | + + + | Race | Unknown | + + + | Ethnic Group | Unknown | + + + Author + + + | Author | [facility] | | | and [place] | + + + | Organization | [facility] | | | and [...] [place] | | | | | [address] | | + + + + + Care Team Providers + +------+ + | Care Laborer Aquatic Life Name | Role | Phone | + +------+ + PCP | Unavailable | + +------+ + Encounter Details +--------+ + + + + | Date | Type | Department | Care Team | Description | +--------+ + + + + | 04/20/ | Hospital | [facility] | | | | 1998 - | Encounter | [facility] | | | | | | ÁNGEL Murillo | | | | 02/25/ | | [place] | | | | 1998 | | [address] | | | | | | [phone] | | | +--------+ + + + [...] | | | | | | [place] [address] | | | | | | [phone] | | | | | | | | +--------+---------+ + + + | 05/19/ | Office | Cardiology | Cristian Mccoy, | | | 2020 | Visit | | MD [address]ayna [address] | | | | | | [place] | | | | | | [phone] | | | | | | | | +--------+---------+ + + + documented as of this encounter Visit Diagnoses Not on filedocumented in this encounter"
--- OUTSIDE RECORDS SUMMARY | ~2019-02-20 | XMS | Encounter Summary ---
Demographics + + + | Address | [address] | | | [place] [address] | + + + | Home Phone | | + + + | Preferred Language | Unknown | + + + | Marital Status | | + + + | Shinto Affiliation | LUT | + + + | Race | White | + + + | Ethnic Group | Not or | + + + Author + + + | Author | [facility] | + + + | Organization | [facility] | + + + | Address | Unknown | + + + | Phone | Unavailable | + + + Support + + +---------+ + | Name | Relationship | Address | Phone | + + +---------+ + | Blossom Rose | ECON | Unknown | | + + +---------+ + Care Team Providers + +------+ + | Care Electromagnet Crane Operator Name | Role | Phone | + +------+ + | Maycol Knutson MD | PCP | | + +------+ + Encounter Details +--------+ + + + + | Date | Type | Department | Care Team | Description | +--------+ + + + + | 02/17/ | Results | LAB CORE [address] | Billy, Faculty | | | 1997 | Only | [address] | [phone] | | | | | [place], [place] | | | | | | [address] | | | | | | [phone] | | | +--------+ + + + [...] | + +--------+ + + + | SURGICAL PATHOLOGY | Routin | 02/17/1998 | | Results for this | | | e | | | procedure are in the | | | | | | results section. | + +--------+ + + + documented in this encounter Results SURGICAL PATHOLOGY (02/17/1998) + + + + + + | Component | Value | Ref Range | Performed | Pathologist | | | | | At | Signature | + + + + + + | SURGICAL | SOURCE OF SPECIMEN: SEE | | [facility] | | | PATHOLOGY | RESULTS | | DEPARTMENT | | | | Preliminary | | OF | | | | History:CLINICAL HISTORY | | PATHOLOGY | | | | Patient Age: 52 | | | | | | year old male. | | | | | | Patient History: Prior | | | | | | biopsy showed squamous | | | | | | cell carcinoma in | | | | | | situ,now for deeper | | | | | | biopsy. GROSS | | | | | | DESCRIPTION | | | | | | Specimens received: 1 | | | | | | in formalin. #1 | | | | | | RIGHT TRUE VOCAL CORD | | | | | | BIOPSY: The specimen | | | | | | consists of multiple | | | | | | softpale pink to dark | | | | | | purple tissues, | | | | | | measuring 0.8 x 0.7 x | | | | | | 0.5 cm inaggregate. The | | | | | | specimen is filtered. | | | | | | CASSETTE INDEX:#1 | | | | | | RIGHT TRUE VOCAL CORD | | | | | | BIOPSY:one cassette, TS. | | | | | | All tissue | | | | | | sections taken are | | | | | | submitted for | | | | | | microscopic | | | | | | evaluation.LeeroyK:KB:CM:tm | | | | | | FINAL DIAGNOSIS#1 | | | | | | RIGHT TRUE VOCAL CORD | | | | | | BIOPSY: INVASIVE, | | | | | | MODERATELY | | | | | | DIFFERENTIATED SQUAMOUS | | | | | | CELL CARCINOMA | | | | | | Case reviewed by: Mayte | | | | | | Glenda, Student | | | | | | FellowCase staffed by: | | | | | | Anselmo Cole, | | | | | | MSivanT:02/21/98:tg | | | | | | My electronic signature | | | | | | indicates that I have | | | | | | personally reviewed | | | | | | alldiagnostic slides, | | | | | | the gross and/or | | | | | | microscopic portion of | | | | | | thisreport and | | | | | | formulated the final | | | | | | diagnosis. | | | | + + + + + + + + | Specimen | + + | Other | + + + + + + + | Performing | Address | City/State/Zipcode | Phone Number | | Organization | | | | + + + + + | [facility] | [address] | [place] [address] | | | PATHOLOGY | DENISE CONNELLY | | | + + + + + documented in this encounter Visit Diagnoses Not on filedocumented in this encounter"
--- OUTSIDE RECORDS SUMMARY | ~2019-02-20 | XMS | Encounter Summary ---
Demographics + + + | Address | [address] | | | [place] [address] | + + + | Home Phone | | + + + | Preferred Language | Unknown | + + + | Marital Status | | + + + | Nondenominational Affiliation | 1028 | + + + | Race | Unknown | + + + | Ethnic Group | Unknown | + + + Author + + + | Author | [facility] | | | and [place] | + + + | Organization | [facility] | | [...] [place] | | | | | [address] | | + + + + + Care Team Providers + +------+ + | Care Grommet Worker Name | Role | Phone | + [...] | | | Services | Medicine | [place] | Sharan Sidhu | [place] [address] | | | Required | | sleep apnea | MD [address] | [address] | | | | | Procedures | [address] | [place], | | | | | [place] | [facility] | [place] [address] | | | | | 6/>YRS SLEEP | [place], [place] | Phone: | | | | | 4/> ADDL | [address] | [phone] | | | | | SARAH ATTND | Phone: | Fax: | | | | | [address] | [phone] | [phone] | | | | | | Fax: | | | | | | | [phone] | | +--------+ + + + + + Diagnostic/Screening (Routine) +--------+--------+ + + + + | Status | Reason | Specialty | Diagnoses / | Referred By | Referred To | | | | | Procedures | Contact | Contact | +--------+--------+ + + + + | Closed | | Radiology | Diagnoses | [place], | [facility] | | | | | Chronic | Sharan D | [address] | | | | | systolic | MD [address] | [place], | | | | | heart | [place] | [place] | | | | | failure | [place] | [address] | | | | | (HCC) | [place], [place] | Phone: | | | | | Unspecified | [address] | [phone] | | | | | sleep apnea | Phone: | Fax: | | | | | Procedures | [phone] | [phone] | | | | | ECHO | Fax: | | | | | | Complete [place] | [phone] | | | | | | ECHO HEART | | | | | | | XTHORACIC,CO | | | | | | | MPLETE W | | | | | | | DOPPLER [place] | | | | | | | ECHO HEART | | | | | | | XTHORACIC,CO | | | | | | | MPLETE, W/O | | | | | | | DOPPLER | | | +--------+--------+ + + + + Reason for Visit +--------+ + | Reason | Comments | +--------+ + | Apnea | | +--------+ + Encounter Details +--------+---------+ + + + | Date | Type | Department | Care Team | Description | +--------+---------+ + + + | 08/06/ | Office | [facility] | Sharan Bruno | Central sleep apnea | | 2015 | Visit | SLEEP DISORDER [address] | MD [address] | (Primary Dx); | | | | [address] [place] | [address] [place] | Chronic systolic | | | | [place] [address] | [place] [address] | heart failure (HCC) | | | | [phone] | [phone] | | | | | | | [...] + + + | Blood Pressure | 142/82 | 08/06/2014 8:17 AM | | | | | PDT | | + + + + + | Pulse | 77 | 08/06/2014 8:17 AM | | | | | PDT | | + + + + + | Temperature | - | - | | + + + + + | Respiratory Rate | 16 | 08/06/2014 8:17 AM | | | | | PDT | | + + + + + | Oxygen Saturation | 96% | 08/06/2014 8:17 AM | | | | | PDT | | + + + + + | Inhaled Oxygen | - | - | | | Concentration | | | | + + + + + | Weight | 82.6 kg (182 lb 3.2 | 08/06/2014 8:17 AM | | | | oz) | PDT | | + + + + + | Height | - | - | | + + + + + | Body Mass Index | 27.7 | 11/18/2013 10:00 AM | | | | | PDT | | + + + + + documented in this encounter Progress Notes Sharan Bruno Jr., MD - 08/06/2014 9:36 AM PDTFormatting of this note might be differen t from the original. I've called German back into the sleep center because of the recent preliminary SERVE-HF stud y results. The SERVE-HF study compared Maximum Medical Treatment of Heart Failure vs Maximum Medical Treatment of Heart Failure + ASV-PAP for Central Sleep Apnea in patients with heart failure (EF <45%) and Central Sleep Apnea (more than 50% apneas were Central). Preliminary results: AHI s were < 10 on ASV. No difference between control and treatment groups in All -Cause Mortality. However, 7.5% of Control Group had sudden and 10% of ASV group had s udden (33% difference statistically significant). It is recommended that ASV-PAP n ot be used in these patients. I've discussed this with him. PSG performed on 12/22/2012 demonstrated an AHI of 56.2 (29 obstructive apneas, 10 mixed country singer eas, 380 central apneas (most Victoriano-Tomas) and 158 hypopneas with a staci oxygen saturatio n of 86%. PSG guided PAP titration was performed on 01/21/2013 using ASV-PAP where EPAP 4cm, PSmin0; PSmax25, backup rate auto was done resulting in an RDI of 1. PLMS were also present. He has a history of atrial fibrillation and at the time he also gave a past history of hear t failure. He has been on ASV-PAP since then but recently hasn't been able to wear it for mo re than about 2 hours a night because of sinus issues. Interestingly, his states that his breathing off of the ASV-PAP is much more "normal" than it was two years ago. He feels that he is sleeping well and doesn't feel too fatigued in the daytime. He has had sinus issues for the last couple of months but they are improving. He does have RA which is rather stable. Past Medical History: has a past medical [...] mcg/mL injection injected intramuscularly once a mo nt digoxin (LANOXIN) 250 mcg tablet Take 250 mcg by mouth Daily. 1/2 tablet daily diltiazem (DILT-XR) 120 mg 24 hr capsule Take 120 mg by mouth Daily. ferrous sulfate 325 mg tablet Take 325 mg by mouth 3 times daily. fluticasone (FLONASE) 50 mcg/nasal spray one spray in each nostril daily as needed folic acid 1 mg tablet Take 1 [...] mg by mouth 2 times daily. potassium citrate (UROCIT-K) 10 mEq SR tablet Take 10 mEq by mouth 2 times daily. predniSONE (DELTASONE) 5 mg tablet Take 5 mg by mouth 2 times daily. rivaroxaban (XARELTO) 20 mg tablet Take 20 mg by mouth Daily (with dinner). sertraline (ZOLOFT) 100 mg tablet 2 tablets daily tamsulosin (FLOMAX) 0.4 mg CAPS Take 0.4 mg by mouth 2 times daily. No current facility-administered medications for this visit. 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 Ears: Normal TM's bilaterally. Normal auditory canals and external ears. Non-tender. Nose: Normal external nose, mucus membranes and septum. Pharynx: Dental Hygiene adequate. Normal buccal mucosa. Mallampati 3. Neck / Thyroid: Supple, no masses, nodes, nodules or enlargement. Pulm:Rhonchi are heard bilaterally but clear with coughing. Card: Heart rate is irregularly irregular. S1, S2 were normal. I heard a 1/6 BRIELLE LLSB. 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 I am recommended that for the present that he stop using ASV-P AP. We will repeat a diagnostic PSG off of PAP to reassess. History of Heart Failure: I can find no evidence of heart failure on exam today nor ca n I find evidence of a recent quantitative determination of EF (no recent Echo) and he can't recall a recent Echo. I am suggesting that Echo be done. If the EF is less than 45% and he has on PSG CSA, then medical management is warranted for his heart but ASV-PAP is not curren tly indicated. P: 2-D Echo PSG He will stop ASV-PAP Today, 30 minutes was spent face to face with the patient; the majority of time was spent c ounseling regarding CSA and ASV-PAP. documented in th is encounter Plan of [...] | | | | | | [place] [address] | | | | | | [phone] | | | | | | | | +--------+---------+ + + + | 05/19/ | Office | Cardiology | Cristian Mccoy, | | | 2019 | Visit | | MD [address] | | | | | | [place] | | | | | | [address] | | | | | | | | +--------+---------+ + + + + + +--------+ + + | Name | Type | Priori | Associated Diagnoses | Order Schedule | | | | ty | | | + + +--------+ + + | Ambulatory Referral | Outpatient | Routin | Central sleep | Ordered: 08/06/2014 | | to Sleep Studies | Referral | e | apnea | | + + +--------+ + + documented as of this encounter Results ECHO Complete (08/12/2014 9:20 AM PDT) + + | Specimen | + + | | + + + + + | Narrative | Performed At | + + + | [facility] ECHOCARDIOGRAM REPORT | [place] | | STUDY DATE: 08/12/2014 PATIENT NAME: German Rose : | [facility] | | 1945 PCP: Maycol Knutson MD | [facility] | | CLINICAL HISTORY/DIAGNOSIS: A-fib, heart failure, ef A | - IMAGING | | transthoracic echocardiogram with M-mode, pulsed-wave and color | | | Doppler was performed with standard views obtained. The technical | | | quality of this examination is adequate. The heart rhythm during | | | the echo is atrial fibrillation. The M-mode, two-dimensional, | | | color flow and spectral Doppler data were reviewed and support the | | | following interpretation: Interpretation: Left Atrium: Left | | | atrial size is mildly dilated. Left ventricle: Left ventricular | | | size is normal with [id number] concentric left ventricular | | | hypertrophy, and normal left ventricular systolic function. The | | | estimated ejection fraction is 60-65 %. Undetermined diastolic | | | function. Aortic root: Aortic root is normal. Right Atrium: Right | | | atrial sizes normal. Right ventricle: Right ventricular size is | | | normal with normal wall thickness and normal right ventricular | | | systolic function. Pericardium: Pericardium is normal. Pulmonary | | | artery: Pulmonary artery is normal. mild pulmonary hypertension | | | with a peak systolic pressure of 35-40 mmHg. Aortic valve: Aortic | | | valve is trileaflet with mild thickening and opens adequately. | | | There is a mild to moderate aortic valve insufficiency. Mitral | | | valve: Mitral valve is normal. mild mitral regurgitation. Pulmonic | | | valve: Pulmonic valve is normal. Tricuspid valve: Tricuspid valve | | | is normal. mild tricuspid valve regurgitation. Vena cava: The | | | inferior vena cava is normal. There is greater than 50% | | | inspiratory collapse of the IVC. IMPRESSIONS: 1. Mild left | | | atrial dilatation. 2. Yvjz-jx-kpukpisk concentric left ventricular | | | hypertrophy. No LVOT obstruction noted. Left ventricular | | | systolic dysfunction is preserved. LVEF is 60-65%. 3. Mildly | | | thickened trileaflet aortic valve with adequate opening. There is | | | a mild to moderate aortic valve insufficiency. 4. Mild mitral valve | | | regurgitation. 5. Mild tricuspid valve regurgitation. 6. Mild | | | pulmonary hypertension with a peak systolic pressure of 35-40 mmHg. | | | 7. Normal IVC with normal respiratory collapse. | | | Measurements: Height: 5'8'' Weight: 182lbs Aortic root: 31 mm | | | Aortic cusp sep: 20 mm LA: 2d 51 mm IVS-diastole: 22 mm | | | IVS-systole: 19 mm LVPW diastole: 14 mm LVPW systole: 16 mm | | | LV diameter-diastole: 47 mm LV diameter-systole: 29 mm | | | Fractional shortenin % PFV aortic valve: m/s MPG mitral | | | valve: mmHg PFV TR jet: 2.84 m/s RA/RV PP mmHg LA | | | volume: 135 mL LA index: 38 mL/m2 Mitral Inflow DT: ms IVRT: | | | ms Valsalva: PWDTI S wave: cm/s PWDTI E wave: cm/s | | | PWDTI A wave: cm/s E/A Ratio: E/E Ratio: | | | Signed by: Kaitlynn Small MD [facility] 08/12/2014 9:20 | | | Buyer Assistant: Neris Scott, GOWDINCS, RDMS, RT | | + + + + + + + + | Performing | Address | City/State/Zipcode | Phone Number | | Organization | | | | + + + + + | [facility] | [address] | [place], [place] | [phone] | | [facility] | | [address] | | | - IMAGING | | | | + + + + + documented in this encounter Visit Diagnoses + + | Diagnosis | + + | Central sleep apnea - Primary Unspecified sleep apnea | + + | Chronic systolic heart failure (HCC) Chronic systolic heart failure | + + documented in this encounter
--- OUTSIDE RECORDS SUMMARY | ~2019-02-20 | XMS | Encounter Summary ---
Demographics + + + | Address | [address] | | | [place] [address] | + + + | Home Phone | | + + + | Preferred Language | Unknown | + + + | Marital Status | | + + + | Tenriism Affiliation | 1028 | + + + | Race | Unknown | + + + | Ethnic Group | Unknown | + + + Author + + + | Author | [facility] | | | and [place] | + + + | Organization | [facility] | | | [...] [place] | | | | | [address] | | + + + + + Care Team Providers + +------+ + | Care Lathe Turner Name | Role | Phone | + +------+ + | Maycol Knutson MD | PCP | | + +------+ + Encounter Details +--------+ + + + + | Date | Type | Department | Care Team | Description | +--------+ + + + + | 04/03/ | Hospital | [facility] | Conversion | Pain | | 2018 | Encounter | CONVERSION [address] | Transaction, | | | | | [address] | Provider Unknown | | | | | [place], [place] | [phone] | | | | | [address] | | | | | | [phone] | | | +--------+ + + + [...] | 03/05/ | Office | Pulmonology | [facility], | | | 2018 | Visit | | Mary Pinto, | | | | | | MD [address] | | | | | | [place], | | | | | | [place] [address] | | | | | | [phone] | | | | | | | | +--------+---------+ + + + | 05/19/ | Office | Cardiology | [place], [place], | | | 2020 | Visit | | [address] | | | | | | [place] | | | | | | [address] | | | | | | | [...]
--- OUTSIDE RECORDS SUMMARY | ~2019-02-20 | XMS | Encounter Summary ---
Demographics + + + | Address | [address] | | | [place] [address] | + + + | Home Phone | | + + + | Preferred Language | Unknown | + + + | Marital Status | | + + + | Confucianism Affiliation | LUT | + + + [...] Team Providers + +------+ + | Care Sports Equipment Supervisor Name | Role | Phone | + +------+ + | Maycol Knutson MD | PCP | | + +------+ + Encounter Details +--------+ + + + + | Date | Type | Department | Care Team | Description | +--------+ + + + + | 04/27/ | DELETED | Preoperative | Consult, | ANESTHESIA/SEDATION | | 1999 | TRANSCRIPTI | Medicine Clinic at | Anesthesia [address] | | | | ON | [facility] 4th Floor [address] [facility] | | | | | [place] | [address] [place], [place] | | | | | Mailcode: [facility] | [id number] | | | | | [facility] | | | | | | and Healing, | | | | | | Building [address],4th Floor | | | | | | [facility] [place] | | | | | | [address] | | | | | | [phone] | | | +--------+ + + + [...] | + +--------+ + + + | ANESTHESIA/SEDATION | | 04/27/1999 | | Results for this | | | | 11:24 AM | | procedure are in the | | | | PST | | results section. | + +--------+ + + + documented in this encounter Visit Diagnoses Not on filedocumented in this encounter"
--- OUTSIDE RECORDS SUMMARY | ~2019-02-20 | XMS | Encounter Summary ---
Demographics + + + | Address | [address] | | | [place] [address] | + + + | Home Phone | | + + + | Preferred Language | Unknown | + + + | Marital Status | | + + + | Mu-Ism Affiliation | LUT | + + + [...] Team Providers + +------+ + | Care Severity Of Illness Coordinator Name | Role | Phone | + +------+ + | Maycol Knutson MD | PCP | | + +------+ + Encounter Details +--------+ + + + + | Date | Type | Department | Care Team | Description | +--------+ + + + + | 04/26/ | Procedure - | | Documentation, | OP REPORT-TEACHING | | 2000 | | | Teaching Physician | | [...] + + | TEACHING PHYSICIAN | | 04/26/1999 | | | + +--------+ + + + documented in this encounter Visit Diagnoses Not on filedocumented in this encounter"
--- OUTSIDE RECORDS SUMMARY | ~2019-02-20 | XMS | Encounter Summary ---
Demographics + + + | Address | [address] | | | [place] [address] | + + + | Home Phone | | + + + | Preferred Language | Unknown | + + + | Marital Status | | + + + | Scientology Affiliation | LUT | + + + [...] Team Providers + +------+ + | Care First Aid Nurse Name | Role | Phone | + +------+ + | Maycol Knutson MD | PCP | | + +------+ + Encounter Details +--------+ + + + + | Date | Type | Department | Care Team | Description | +--------+ + + + + | 02/17/ | Procedure - | | Record, Operation [...] + + | OPERATION RECORD | | 02/17/1998 | | Results for this | | | | | | procedure are in the | | | | | | results section. | + +--------+ + + + documented in this encounter Results OPERATION RECORD (02/17/1998) + + | Transcriptions | + + | Interface, Video Production Intern In - 03/22/2006 5:11 AM PST | | [facility] [facility] | | [place], [place] [address] [place] | | [facility] CenterOPERATION RECORDMed Rec No.: [id number] Date: | | 02/17/1998Name: Jose Martin Rose SURGEON: Dylan Arthur M.D. 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 Direct laryngoscopy. | | 2. Biopsy of laryngeal mass.SPECIMEN(S) REMOVED: | | Multiple biopsies taken from the right true vocal | | cord and false vocal fold.ANESTHESIA: General endotracheal | | anesthesia.COMPLICATIONS: None.ESTIMATED BLOOD LOSS: | | Minimal.INDICATIONS: This patient is a 52-year-old male witha | | history of hoarseness. He has undergone a superficial biopsy x two inthe past and | | laser treatment to the affected area. The first biopsy showedsevere dysplasia. The | | second biopsy showed carcinoma in situ.FINDINGS: There is | | diffuse erythema and edemaover the right true vocal cord and vocal fold. A small | | incision was madeusing the microlaryngeal scissors. A deeper biopsy was then taken in | | thesubmucosal plane.PROCEDURE: The patient was correctly | | identifiedand brought to the operation where general anesthesia was induced | | viaendotracheal intubation without difficulty. The patient was placed in asupine | | position. The microlaryngoscope was inserted and the true vocalcords were exposed. | | The patient was then placed in suspension.The area of concern was examined and showed | | diffuse erythema and edema overthe right true vocal cord and extending out to the | | vocal fold. There isalso a suspicious-looking area which appeared to be squamous cell | | carcinomaat the lateral aspect of the cord. Multiple biopsies were taken. | | Anapproximately 2 cm incision was made through the mucosa to obtain deeptissue | | specimens. The remainder of the supraglottic larynx wasnormal-appearing. | | There were no lesions seen in the hypopharynx, vallecula,piriform sinuses.Next, the | | rigid esophagoscope was passed to 30 cm. Although the esophaguswas quite tight, there | | were no lesions seen. The mucosa was normal inappearance. The 0 degree rigid | | scope was used to examine the mucosa as theesophagoscope was removed.The patient | | tolerated the procedure well . There were no intraoperativecomplications. Dr. Richardson | | Jerson, the attending surgeon, was present for thekey portions of the procedure which | | were direct laryngoscopy and biopsy ofthe lesion.Cheryl Mcgrath M.D. | | Dylan Arthur M.D.Resident, Otolaryngology Rubber Calender Helper, | | OtolaryngologyHead and Neck Surgery Head and Neck SurgeryMM/clarkmD: | | 02/17/1998T: 02/17/1998 10:54 Acc: | |using the microlaryngeal scissors. A deeper biopsy was then taken in the | |submucosal plane. | | | |PROCEDURE: The patient was correctly identified | |and brought to the operation where general anesthesia was induced via | |endotracheal intubation without difficulty. The patient was placed in a | |supine position. The microlaryngoscope was inserted and the true vocal | |cords were exposed. The patient was then placed in suspension. | | | |The area of concern was examined and showed diffuse erythema and edema over | |the right true vocal cord and extending out to the vocal fold. There is | |also a suspicious-looking area which appeared to be squamous cell carcinoma | |at the lateral aspect of the cord. Multiple biopsies were taken. An | |approximately 2 cm incision was made through the mucosa to obtain deep | |tissue specimens. The remainder of the supraglottic larynx was | |normal-appearing. There were no lesions seen in the hypopharynx, vallecula, | |piriform sinuses. | | | |Next, the rigid esophagoscope was passed to 30 cm. Although the esophagus | |was quite tight, there were no lesions seen. The mucosa was normal in | |appearance. The 0 degree rigid scope was used to examine the mucosa as the | |esophagoscope was removed. | | | |The patient tolerated the procedure well . There were no intraoperative | |complications. Dr. Dylan Arthur, the attending surgeon, was present for the | |spicer portions of the procedure which were direct laryngoscopy and biopsy of | |the lesion. | | | | | | | | | |Cheryl Mcgrath M.D. Dylan Arthur M.D. | |Resident, Otolaryngology Rubber Calender Helper, Otolaryngology | |Head and Neck Surgery Head and Neck Surgery | | | |[place] | | | | A | | | |cc: | + + documented in this encounter Visit Diagnoses Not on filedocumented in this encounter"
--- OUTSIDE RECORDS SUMMARY | ~2019-02-20 | XMS | Encounter Summary ---
Demographics + + + | Address | [address] | | | [place] [address] | + + + | Home Phone [...] + + + | Author | [facility] | | | and [place] | + + + | Organization | [facility] | | [...] [place] | | | | | [address] | | + + + + + Care Team Providers + +------+ + | Care Residential Pest Control Technician Name | Role | Phone | + +------+ + | Maycol Knutson MD | PCP | | + +------+ + Reason for Visit +--------+ + | Reason | Comments | +--------+ + | Apnea | | +--------+ + Encounter Details +--------+---------+ + + + | Date | Type | Department | Care Team | Description | +--------+---------+ + + + | 01/27/ | Office | [facility] | Aleksandar Tejeda PA | NOLA (obstructive | | 2012 | Visit | SLEEP DISORDER [address] | [address] | sleep apnea) | | | | [address] | [place], [place] | (Primary Dx); | | | | [place] [address] | [address] | Victoriano-Wallace | | | | [phone] | | breathing | +--------+---------+ + + + Social History [...] + + + | Blood Pressure | 122/68 | 01/27/2013 9:51 AM | | | | | PST | | + + + + + | Pulse | 74 | 01/27/2013 9:51 AM | | | | | PST | | + + + + + | Temperature | - | - | | + + + + + | Respiratory Rate | 16 | 01/27/2013 9:51 AM | | | | | PST | | + + + + + | Oxygen Saturation | - | - | | + + + + + | Inhaled Oxygen | - | - | | | Concentration | | | | + + + + + | Weight | 87.9 kg (193 lb 12.8 | 01/27/2013 9:51 AM | | | | oz) | PST | | + + + + + | Height | - | - | | + + + + + | Body Mass Index | 31.28 | 12/15/2012 1:28 PM | | | | | PDT | | + + + + + documented in this encounter Progress Notes Aleksandar Tejeda PA - 01/27/2013 10:03 AM PST Subjective: Patient ID: German Rose is a 67 y.o. male. HPI last office visit was: 01/22/2013 date of polysomnography: 12/22/2012 AHI: 77.4 RDI: 77.4 O2%: 86% with 15.8 minutes below 88% Machine type: Respironics ASV BiPAP with nasal mask ([place]) obtained from: [facility] pressure: EPAP = 4cm;PSmin=0cm;PSmax=25cm;backup rate=auto Nights using BiPAP: 0/0 average usage (all nights): average usage (nights used): AHI: German comes in for BiPAP compliance. He has not used the BiPAP yet because he didn't feel t hat he was properly trained on how to use it. On the first night that he had it, he tried w earing it briefly, but had problems with leaks and he chose not to wear it any longer. As w juan were reviewing how to use his BiPAP, I noticed that he has an AVAPS BiPAP, which is not us ed for treating Victoriano-Wallace breathing. The prescription was written for ASV BiPAP. This was some sort of confusion with [facility] in [place]. German and his were not in formed of any delay in getting the ASV and assumed they were getting the correct machine. T kuldeeproseanne were very frustrated by this. [facility] did not answer their phones before German guevara nd his left our office, so we were not able to get an answer from them. German decided t hat it would be best for him to go to [facility]. German was also concerned about his mask fit because of noise from the machine and leaks. He had a very good fit while sitting. There were no leaks, but the BiPAP was making noise in the rhythm of his breathing, which is common with Respironics machines. We also checked his mask fit while lying in bed. He again had no leak problems. Review of Systems Objective: Physical Exam Assessment: Problem #1: OBSTRUCTIVE SLEEP APNEA (ICD 9-327.23) This is well controlled with BiPAP. He has not started using his BIPAP and was given an AV APS BiPAP instead of ASV BiPAP, as prescribed. 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 Plan: He and his have decided to change from [facility] [place] to [facility]. We have faxed [facility] a copy of his polysomnogram with the Rx for the ASV BiPAP. I will follow up again in 1 week, sooner prn. Thirty minutes were spent [id number], with the majority of time spent in counseling. [...] | | | | | | [place] [address] | | | | | | [phone] | | | | | | | | +--------+---------+ + + + | 05/19/ | Office | Cardiology | Cristian Mccoy, | | | 2019 | Visit | | MD [address] | | | | | | [place] | | | | | | [id number] | | | | | | | | +--------+---------+ + + + documented as of this encounter Visit Diagnoses + + | Diagnosis | + + | NOLA (obstructive sleep apnea) - Primary Obstructive sleep apnea (adult) (pediatric) | + + | Victoriano-Wallace breathing Victoriano-Wallace respiration | + + documented in this encounter"
--- OUTSIDE RECORDS SUMMARY | ~2019-02-20 | XMS | Encounter Summary ---
Demographics + + + | Address | [address] | | | [place] [address] | + + + | Home Phone | | + + + | Preferred Language | Unknown | + + + | Marital Status | | + + + | Orthodox Affiliation | LUT | + + + | Race | White | + + + | Ethnic Group | Not or | + + + Author + + + | Author | [facility] | + + + | Organization | [facility] | + + + | Address | Unknown | + + + | Phone | Unavailable | + + + Support + + +---------+ + | Name | Relationship | Address | Phone | + + +---------+ + | Blossom Rose | ECON | Unknown | | + + +---------+ + Care Team Providers + +------+ + | Care Music Minister Name | Role | Phone | + +------+ + | Maycol Knutson MD | PCP | | + +------+ + Reason for Visit + + + | Reason | Comments | + + + | Follow-up visit | | + + + Encounter Details +--------+---------+ + + + | Date | Type | Department | Care Team | Description | +--------+---------+ + + + | 05/18/ | Office | Otolaryngology | Dylan Arthur MD | MALIGNANT NEOPLASM | | 2005 | Visit | Head and Neck | | OF GLOTTIS (HCC) | | | | Surgery Services at | | (Primary Dx) | | | | [facility] [address] [facility] | | | | | | [address] | | | | | | Mailcode: [address] | | | | | | [place] | | | | | | [place], [place] | | | | | | [address] | | | | | | [phone] | | | +--------+---------+ + + + Social History + +-------+ [...] documented as of this encounter Progress Notes Jerson Hui Phd, Dylan - 05/18/2005 1:09 PM PSTHere for general check up- with his history of cancer wants to be sure nothing serious following recent episode of bronchitis. Rx with an tibiotics- now improving ROS: No new skin lesions. No otalgia or otorrhea. No dysphagia/odynophagia. No change in voice. No mouth or throat pain No epistaxix or nasal obstruction. No new masses or pain No chest pain on exertion. No abdominal pain, change in bowel habits. No urinary symptoms. No new or unusual musculoskeletal symptoms. No weight loss or fatigue. Skin- no evidence of lesions Ears- pinnae, ear canals, typmanic membranes- normal. Nose-normal to anterior rhinoscopy, mucosa normal, septum midline Oral cavity/Orophaynx- Mucosa of the oral cavity, tongue, pharynx and palate has no inflamm ation or suspicious lesions. Dentition normal. Salivary Glands- no evidence of masses, normal salivary flow from Lilia's/Ken's ducts Thyroid- normal size, no nodules Neck- No adenopathy or masses Levels I-V. Cranial Nerves- II-XII normal Transnasal flexible fiberoptic laryngoscopy was performed under topical anesthesia (psuedoe phedrine/lidocaine). The nasal cavity, nasopharynx, oropharynx, hypopharynx and larynx were all well seen. All mucosal surfaces are without any visible abnormality. Laryngeal config uration unchanged from before. Mild erythema only. There is no evidence of any pooled secret ions. 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
--- OUTSIDE RECORDS SUMMARY | ~2019-02-20 | XMS | Encounter Summary ---
Demographics + + + | Address | [address] | | | [place] [address] | + + + | Home Phone | | + + + | Preferred Language | Unknown | + + + | Marital Status | | + + + | Restoration Affiliation | 1028 | + + + | Race | Unknown | + + + | Ethnic Group | Unknown | + + + Author + + + | Author | [facility] | | | and [place] | + + + | Organization | [facility] | | | [...] [place] | | | | | [address] | | + + + + + Care Team Providers + +------+ + | Care Post Office Clerk Name | Role | Phone | + +------+ + | Maycol Knutson MD | PCP | | + +------+ + Encounter Details +--------+ + + + + | Date | Type | Department | Care Team | Description | +--------+ + + + + | 04/03/ | Hospital | [facility] | Conversion | Pain | | 2018 | Encounter | CONVERSION [address] | Transaction, | | | | | [address] | Provider Unknown | | | | | [place], [place] | [phone] | | | | | [address] | | | | | | [phone] | | | +--------+ + + + [...] | 03/05/ | Office | Pulmonology | [facility], | | | 2018 | Visit | | Mary iPnto, | | | | | | MD [address] | | | | | | [place], | | | | | | [place] [address] | | | | | | [phone] | | | | | | | | +--------+---------+ + + + | 05/19/ | Office | Cardiology | [place], [place], | | | 2020 | Visit | | [address] | | | | | | [place] | | | | | | [address] | | | | | | | | +--------+---------+ + + + documented as of this encounter Procedures + +--------+ + + + | Procedure Name | Priori | Date/Time | Associated Diagnosis | Comments | | | ty | | | | + +--------+ + + + | CT CERVICAL SPINE WO | Routin | 04/05/2016 | | Results for this | | CONTRAST | e | 4:46 AM | | procedure are in the | | | | PST | | results section. | + +--------+ + + + documented in this encounter Results CT Cervical Spine wo Contrast (04/05/2016 4:46 AM PST) + + | Specimen | [...]
--- OUTSIDE RECORDS SUMMARY | ~2019-02-20 | XMS | Encounter Summary ---
Demographics + + + | Address | [address] | | | [place] [address] | + + + | Home Phone | | + + + | Preferred Language | Unknown | + + + | Marital Status | | + + + | Christianity Affiliation | LUT | + + + | Race | White | + + + | Ethnic Group | Not or | + + + Author + + + | Author | [facility] | + + + | Organization | [facility] | + + + | Address | Unknown | + + + | Phone | Unavailable | + + + Support + + +---------+ + | Name | Relationship | Address | Phone | + + +---------+ + | Blossom Rose | ECON | Unknown | | + + +---------+ + Care Team Providers + +------+ + | Care Screen Maker Name | Role | Phone | + +------+ + | Maycol Knutson MD | PCP | | + +------+ + Encounter Details +--------+ + + + + | Date | Type | Department | Care Team | Description | +--------+ + + + + | 09/29/ | Office | [facility] | Note, [...] as of this encounter Progress Notes Interface, Medical Records Auditor In - 03/03/2006 3:11 AM PSTCLINIC DATE: 09/29/1998 OTOLARYNGOLOGY CLINIC Mr. Rose is seen back today for a preoperative discussion and repeat dilation. He has a full understanding of the procedure from his previous experience, and we will proceed. Consent was signed. Dylan Arthur M.D. Churn Driller, Otolaryngology Head and Neck Surgery KRIS/klaus Tdocumented in this encounter Plan of Treatment Not on filedocumented as of this encounter Visit Diagnoses Not on filedocumented in this encounter"
--- OUTSIDE RECORDS SUMMARY | ~2019-02-20 | XMS | Encounter Summary ---
Demographics + + + | Address | [address] | | | [place] [address] | + + + | Home Phone | | + + + | Preferred Language | Unknown | + + + | Marital Status | | + + + | Uatsdin Affiliation | 1028 | + + + | Race | Unknown | + + + | Ethnic Group | Unknown | + + + Author + + + | Author | [facility] | | | and [place] | + + + | Organization | [facility] | | | and [...] [place] | | | | | [address] | | + + + + + Care Team Providers + +------+ + | Care Return Clerk Name | Role | Phone | + +------+ + | Maycol Knutson MD | PCP | | + +------+ + Encounter Details +--------+ + + + + | Date | Type | Department | Care Team | Description | +--------+ + + + + | 02/15/ | Hospital | [facility] | Conversion | | | 2016 | Encounter | [facility] [address] | Transaction, | | | | | [address] | Provider Unknown | | | | | [place], [place] | [phone] | | | | | [address] | | | | | | [phone] | | | +--------+ + + + [...] | | | | | | [place] [address] | | | | | | [phone] | | | | | | | | +--------+---------+ + + + | 05/19/ | Office | Cardiology | Cristian Mccoy, | | | 2020 | Visit | | MD [address] | | | | | | [place] | | | | | | [address] | | | | | | | | +--------+---------+ + + + documented as of this encounter Visit Diagnoses Not on filedocumented in this encounter"
--- OUTSIDE RECORDS SUMMARY | ~2019-02-20 | XMS | Encounter Summary ---
Demographics + + + | Address | [address] | | | [place] [address] | + + + | Home Phone [...] [place] | | | | | [address] | | + + + + + Care Team Providers + +------+ + | Care Drosophere Operator Name | Role | Phone | + +------+ + | Maycol Knutson MD | PCP | | + +------+ + Encounter Details +--------+ + + + + | Date | Type | Department | Care Team | Description | +--------+ + + + + | 10/17/ | Imaging | [facility] | Provider, | | | 2017 | Exam | [facility] | MD [address] | | | | | IMAGING | [address] | | | | | [phone] | [place] [address] | | +--------+ + + + + [...] | | | | | | [place] [address] | | | | | | [phone] | | | | | | | | +--------+---------+ + + + | 05/19/ | Office | Cardiology | Cristian Mccoy, | | | 2019 | Visit | | MD [address] | | | | | | [place] | | | | | | [address] | | | | | | | | +--------+---------+ + + + documented as of this encounter Procedures + +--------+ + + + | Procedure Name | Priori | Date/Time | Associated Diagnosis | Comments | | | ty | | | | + +--------+ + + + | MRI LUMBAR SPINE WO | Routin | 07/06/2013 | | Results for this | | CONTRAST | e | 10:25 AM | | procedure are in the | | | | PDT | | results section. | + +--------+ + + + documented in this encounter Results MRI Lumbar Spine wo Contrast (07/06/2013 10:25 AM PDT) + + | Specimen | + + | | + + + + + | Narrative | Performed At | + + + | External films for comparison only - no result from Pablo. | [facility] | + + + + +---------+ + + | Performing | Address | City/State/Zipcode | Phone Number | | Organization | | | | + +---------+ + + | [facility] | | | | + +---------+ + + documented in this encounter Visit Diagnoses Not on filedocumented in this encounter"
--- OUTSIDE RECORDS SUMMARY | ~2019-02-20 | XMS | Encounter Summary ---
Demographics + + + | Address | [address] | | | [place] [address] | + + + | Home Phone [...] Team Providers + +------+ + | Care Weaver Apprentice Name | Role | Phone | + +------+ + | Maycol Knutson MD | PCP | | + +------+ + Encounter Details +--------+ + + + + | Date | Type | Department | Care Team | Description | +--------+ + + + + | 03/03/ | Results | LAB CORE [address] | Billy, Faculty | | | 1997 | Only | [address] | [phone] | | | | | [place], [place] | | | | | | [address] | | | | | | [phone] | | | +--------+ + + + [...] + | SURGICAL PATHOLOGY | Routin | 03/03/1998 | | Results for this | | | e | | | procedure are in the | | | | | | results section. | + +--------+ + + + documented in this encounter Results SURGICAL PATHOLOGY (03/03/1998) + + + + + + | Component | Value | Ref Range | Performed | Pathologist | | | | | At | Signature | + + + + + + | SURGICAL | SOURCE OF SPECIMEN: SEE | | [facility] | | | PATHOLOGY | RESULTS | | DEPARTMENT | | | | Preliminary | | OF | | | | History:FROZEN SECTION | | PATHOLOGY | | | | DIAGNOSISMUCOSA LEFT | | | | | | TRUE VOCAL CORD | | | | | | (SPECIMEN #2) - INVASIVE | | | | | | SQUAMOUS CELL | | | | | | CARCINOMARIGHT | | | | | | HEMILARYNGECTOMY | | | | | | VERTICAL (SPECIMEN #3) - | | | | | | RIGHT HEMILARYNGECTOMY | | | | | | MARGINS NO TUMORLEFT | | | | | | TRUE VOCAL CORD | | | | | | (SPECIMEN #4) - NO | | | | | | TUMOR Confirmed | | | | | | by: Adriel Cruz M.D. | | | | | | CLINICAL HISTORY | | | | | | Patient age: 53 | | | | | | year old male. | | | | | | Patient History: NO | | | | | | HISTORY PROVIDED | | | | | | GROSS DESCRIPTION | | | | | | Specimens Received: | | | | | | Three fresh, one in | | | | | | formalin #1 | | | | | | DELPHIAN LYMPH NODE: The | | | | | | specimen is received in | | | | | | formalin andconsists of | | | | | | a 3.5 x 1.8 x 0.9 cm | | | | | | yellow, lobular, fatty | | | | | | tissue which | | | | | | onsectioning reveals | | | | | | three possible lymph | | | | | | nodes ranging from 0.6 x | | | | | | 0.5 x0.4 cm to 1.5 x | | | | | | 0.6 x 0.5 cm. #2 | | | | | | MUCOSA LEFT TRUE VOCAL | | | | | | CORD-FS: The specimen is | | | | | | received fresh | | | | | | andconsists of two | | | | | | irregular, red-brown | | | | | | tissues measuring 0.5 x | | | | | | 0.3 x 0.2cm and 0.8 x | | | | | | 0.2 x 0.1 cm. The frozen | | | | | | section residue which | | | | | | consists ofthe entire | | | | | | specimen is wrapped. | | | | | | #3 RIGHT | | | | | | HEMILARYNGECTOMY | | | | | | VERTICAL-FS: The | | | | | | specimen is received | | | | | | freshand consists of a | | | | | | 4.2 x 2.5 x 2.2 cm | | | | | | product of a right | | | | | | hemilaryngectomyconsisti | | | | | | ng of the anterior half | | | | | | of the thyroid cartilage | | | | | | with remnantsof the | | | | | | superior thyroid notch. | | | | | | Along the posterior | | | | | | aspect of thecartilage | | | | | | is an attached remnant | | | | | | of mucosa measuring 2.5 | | | | | | x 1.8 cm with araised, | | | | | | focally granular, dahl to | | | | | | red-purple lesion | | | | | | involving the truecord | | | | | | and intraglottic mucosa | | | | | | measuring 2.2 x 1.3 cm | | | | | | and extending 0.3 | | | | | | cmabove the mucosal | | | | | | surface. The tumor does | | | | | | not grossly appear to | | | | | | involvethe false cord. | | | | | | A frozen | | | | | | section from the | | | | | | medioanterior margin is | | | | | | prepared by thesurgeon. | | | | | | The area of this frozen | | | | | | is inked yellow and the | | | | | | remainingmargin is inked | | | | | | black. Remnant of | | | | | | thyroid cartilage is | | | | | | calcified. Onsectioning | | | | | | the mass grossly extends | | | | | | up to the deep | | | | | | anteroinferior | | | | | | inkedmargin and within | | | | | | less than 0.1 cm of the | | | | | | lateral inked margin. | | | | | | Thetumor grossly extends | | | | | | up to but not through | | | | | | the thyroid cartilage | | | | | | andexamination of the | | | | | | medial margin reveals | | | | | | tumor to grossly extend | | | | | | up tofocal mucosal | | | | | | margins. The tumor has a | | | | | | well circumscribed, | | | | | | granular tanappearance | | | | | | and averages 1.2 cm | | | | | | thick. The tumor is | | | | | | grossly free of | | | | | | theinferior margin of | | | | | | resection and is within | | | | | | 0.3 cm of the superior | | | | | | inkedmargin. #4 | | | | | | LEFT TRUE VOCAL CORD-FS: | | | | | | The specimen is | | | | | | received fresh and | | | | | | consistsof a 0.9 x 0.7 x | | | | | | 0.3 cm rubbery, | | | | | | predominantly | | | | | | hemorrhagic purple. | | | | | | Thefrozen section | | | | | | residue consists of the | | | | | | entire specimen. | | | | | | CASSETTE INDEX:#1 | | | | | | DELPHIAN LYMPH NODE:1, | | | | | | three nodes, TS#2 | | | | | | MUCOSA LEFT TRUE VOCAL | | | | | | CORD-FS:2, wrapped, | | | | | | TS#3 RIGHT | | | | | | HEMILARYNGECTOMY | | | | | | VERTICAL-FS:3A, frozen | | | | | | section residue of | | | | | | medioanterior margin and | | | | | | section of tumor for | | | | | | comparison, TS3B, | | | | | | sections of lateral | | | | | | margin taken | | | | | | transversely, following | | | | | | decalcification, | | | | | | RS3C-D, longitudinal | | | | | | sections of entire | | | | | | specimen following | | | | | | decalcification, RS3E, | | | | | | sections of most medial | | | | | | margin taken | | | | | | transversely, following | | | | | | decalcification, RS#4 | | | | | | LEFT TRUE VOCAL | | | | | | CORD-FS:4, TS All | | | | | | tissue sections taken | | | | | | are submitted for | | | | | | microscopic | | | | | | evaluation.T:VALERIA/KIANNA/RAYMOND:dj | | | | | | FINAL | | | | | | DIAGNOSIS#1 DELPHIAN | | | | | | LYMPH NODE: ONE | | | | | | REGIONAL LYMPH NODE WITH | | | | | | NO EVIDENCE OF | | | | | | MALIGNANCY (0/1)#2 | | | | | | MUCOSA LEFT TRUE VOCAL | | | | | | CORD: INVASIVE | | | | | | SQUAMOUS CELL | | | | | | CARCINOMA#3 RIGHT | | | | | | HEMILARYNGECTOMY | | | | | | VERTICAL: INVASIVE | | | | | | SQUAMOUS CELL CARCINOMA, | | | | | | WELL DIFFERENTIATED, | | | | | | 1.5 CM IN GREATEST | | | | | | DIMENSION, INVADING INTO | | | | | | BUT NOT THROUGH THE | | | | | | THYROID CARTILAGE. | | | | | | ANTEROINFERIOR SURGICAL | | | | | | MARGIN POSITIVE FOR | | | | | | TUMOR.#4 LEFT TRUE VOCAL | | | | | | CORD: NO EVIDENCE OF | | | | | | MALIGNANCY Note: | | | | | | In the absence of | | | | | | clinical history, the | | | | | | diagnosis is based | | | | | | ongross and/or | | | | | | histologic findings | | | | | | only. Case | | | | | | reviewed by: Carlos Rainey | | | | | | Priyanka LuaCase staffed | | | | | | by: Angelika Lopez | | | | | PriyankaT:03/08/98:tg | | | | | | My [...] | + + + + + | [facility] | [address] | [place] [address] | | | PATHOLOGY | [address] | | | + + + + + documented in this encounter Visit Diagnoses Not on filedocumented in this encounter"
--- OUTSIDE RECORDS SUMMARY | ~2019-02-20 | XMS | Encounter Summary ---
Demographics + + + | Address | [address] | | | [place] [address] | + + + | Home Phone | | + + + | Preferred Language | Unknown | + + + | Marital Status | | + + + | Adventist Affiliation | LUT | + + + | Race | White | + + + | Ethnic Group | Not or | + + + Author + + + | Author | [facility] | + + + | Organization | [facility] | + + + | Address | Unknown | + + + | Phone | Unavailable | + + + Support + + +---------+ + | Name | Relationship | Address | Phone | + + +---------+ + | Blossom Rose | ECON | Unknown | | + + +---------+ + Care Team Providers + +------+ + | Care Biofuels Production Technician Name | Role | Phone | + +------+ + | Maycol Knutson MD | PCP | | + +------+ + Reason for Referral Diagnostic Testing (Routine) +--------+--------+ + + + + | Status | Reason | Specialty | Diagnoses / | Referred By | Referred To | | | | | Procedures | Contact | Contact | +--------+--------+ + + + + | Closed | | Radiology | Diagnoses | Kenisha, | Rad General | | | | | Esophageal | Alexei S, | [address] | | | | | stenosis | MD [address] | [address] | | | | | Procedures | [address] | Mailcode: | | | | | X-RAY | [facility] | [facility] | | | | | ESOPHAGRAM | [facility] [place] | for Health | | | | | | [address] | and Healing, | | | | | | Phone: | [facility], | | | | | | [phone] | 3rd Floor | | | | | | Fax: | [place], [place] | | | | | | [phone] | [address] | | | | | | | Phone: | | | | | | | [phone] | | | | | | | Fax: | | | | | | | [phone] | +--------+--------+ + + + + Speech Therapy (Routine) +--------+--------+ + + + + | Status | Reason | Specialty | Diagnoses / | Referred By | Referred To | | | | | Procedures | Contact | Contact | +--------+--------+ + + + + | Closed | | Speech | Diagnoses | Kenisha, | Ent Speech | | | | Therapy | Pharyngeal | Alexei S, | [facility] [address] | | | | | dysphagia | MD [address] | [address] | | | | | Procedures | [address] | [facility] | | | | | CONSULT TO | [address] [address] | Mailcode: | | | | | ENT SPEECH | [place], [place] | [address] | | | | | THERAPY | [address] | Physician's | | | | | | Phone: | Pavilion | | | | | | [phone] | [place], [place] | | | | | | Fax: | [address] | | | | | | [phone] | Phone: | | | | | | | [phone] | | | | | | | Fax: | | | | | | | [phone] | +--------+--------+ + + + + Reason for Visit + + + | Reason | Comments | + + + | New patient | | | consultation | | + + + Office Visit [...] Love | | | | | | Leonardo | [address] | | | | | | [place], [place] | Mailcode: | | | | | | [address] | [address] | | | | | | | Physician's | | | | | | | Pavilion | | | | | | | [place], [place] | | | | | | | [address] | | | | | | | Phone: | | | | | | | [phone] | | | | | | | Fax: | | | | | | | [phone] | +--------+--------+ + + + + Encounter Details +--------+---------+ + + + | Date | Type | Department | Care Team | Description | +--------+---------+ + + + | 09/14/ | Office | Otolaryngology | Alexei De | Glottic stenosis | | 2009 | Visit | Laryngology Services | MD Timbo [address] | (Primary Dx); | | | | at [facility] [address] | [address] | Pharyngeal | | | | [address] | [facility] [place] | dysphagia; | | | | Mailcode: [address] | [address] | Esophageal stenosis; | | | | [facility] | [phone] | Larynx edema | | | | [place], [place] | | | | | | [address] | | | | | | [phone] | | | +--------+---------+ + + + [...] + + + + | Weight | 85.5 kg (188 lb 8 | 09/14/2009 12:53 PM | | | | oz) | PDT | | + + + + + | Height | - | - | | + + + + + | Body Mass Index | - | - | | + + + + + documented in this encounter Progress Notes Alexei De MD - 09/14/2009 2:05 PM PDT PATIENT NAME: German Rose ALJOSE MR#: [id number] : 1945 REFERRING PROVIDER: RICKEY GAGNON Otolaryngology [address] [place] [address] PRIMARY CARE PROVIDER: Maycol Knutson MD CLINIC: [facility] REASON FOR FOLLOW-UP:Chief Complaint Patient presents with New patient consultation HPI: German Rose is a 64 y.o. male who was last seen at the [facility] for acute throat discomfort and found to have a resolving upper respiratory tract infection. It was recommended that he return as needed. He returns today noting that he feels that his voice is worse and his swallowing is giving him more trouble. He thinks that this has occurred over the past few months and he associat es it with tightness in the bilateral anterior neck. He does cough on liquids occasionally and particulates. He is very careful with both. He thinks that swallowing is more effortfu l recently. He has not noted any otalgia. He denies odynophagia. He has not noted any hem optysis. He does have some dyspnea on exertion. He has noted noisy breathing on deep inspi ration. He does note problems with nasal allergy symptoms, including itchy eyes, rhinorrhea and sneezing. He uses [...] right glottis Radiation fibrosis larynx Glottic stenosis MA (myocardial infarction) PUD (peptic ulcer disease) Fibromyalgia Depression Nephrolithiasis SURGHx:Past Surgical History Procedure Date Hx extended vertical hemilaryngectomy right posterior arytenoid retained. Hx stenosis dilation Hx jacqueline fundoplication Hx dml bx 09/1997 cCIS--pT2N0 SCCa right vocal fold Hx laryngotracheoplasty 1999 ALLERGIES: No Active Allergies MEDICATIONS:Current outpatient prescriptions Medication Sig ACYCLOVIR ORAL Take by mouth as needed. Amlodipine-Atorvastatin (CADUET) 10-10 mg Oral Tablet Take by mouth. CYANOCOBALAMIN (VITAMIN B-12 INJ) by Injection route every thirty days. LANSOPRAZOLE (PREVACID ORAL) Take by mouth. metoclopramide (REGLAN) 5 mg Oral Tablet Take 5 mg by mouth every six hours as needed. pregabalin (LYRICA) 50 mg Oral Capsule Take by mouth three times daily. Max: 600 mg/da y sertraline (ZOLOFT) 50 mg Oral Tablet Take 50 mg by mouth once daily. tamsulosin (FLOMAX) 0.4 mg Oral Capsule, Sust. Release 24 hr Take 0.4 mg by mouth once daily. TESTOSTERONE IM Inject into the muscle (IM). VICODIN ORAL None Entered LAST WEIGHTS: Wt Readings from Last 3 Encounters: 09/14/2009 85.503 kg (188 lb 8 oz) 12/18/2006 92.534 kg (204 lb) EXAMINATION: Wt 85.503 kg (188 lb 8 oz) Gen: He is a 64 y.o. male. [...] is no obvious obstruction of Stensen's or Ken's ducts bilaterally. Oropharynx: Normal lips and oral [...] adequate. It is scarred anteriorly without mass. VIDEOSTROBOSCOPY: Laryngovideostroboscopy was performed today. Review of laryngovideostro boscopy demonstrates laryngeal anatomy and motion as noted above. There laryngeal hyperfunc tion is severe and most notable in the anterior-posterior and lateral dimension. There is no t noted to be increased thick laryngeal mucous. The mucosal wave comes from the right aryte noid mound pressed into the epiglottis and left false vocal fold. The tissue appears very pl iable and has no mucosal irregularity. ASSESSMENT: Mr. Rose appears to suffer from dysphonia associated with prior partial laryng ectomy with reconstruction which has not changed significantly since I last saw him. He has more laryngeal hyperfunction and increased effort of voicing compared to that time, but I d o not have a laryngovideostroboscopy from then to compare to. I certainly don't see any wor risome lesions and his voice is quite good for not having any true vocal folds. Mr. Rose's pharyngeal dysphagia may be due to radiation fibrosis and esophageal/pharyngeal stenosis. I am concerned about the increased reports of aspiration and avoidance of most p articulates. PLAN: Today I have recommended obtaining a modified barium swallow with barium esophagram. I don't think that this is emergent, but would be helpful. I recommended observation of h is voice. I don't think that there is much I can do to facilitate this at this time. I will see him back following the completion of the modified barium swallow, or sooner if symptoms worsen. Alexei De M.D. Residential Construction Instructor Laryngology and Head & Neck Surgery documented in this encounter Plan of Treatment + + +--------+ + + | Name | Type | Priori | Associated Diagnoses | Order Schedule | | | | ty | | | + + +--------+ + + | ENT MODIFIED BARIUM | Procedures | Routin | Pharyngeal | Expected: 11/15/2009 | | SWALLOW | | e | dysphagia | | + + +--------+ + + | [place] | Procedures | Routin | Glottic stenosis | Ordered: 09/14/2009 | | LARYNGOSCOPY,FLEX/RI | | e | Larynx edema | | | GID+STROBOSCOPY | | | | | + + +--------+ + + documented as of this encounter Results X-RAY ESOPHAGRAM (11/30/2009 10:14 AM PDT) + + + + + + | Component | Value | Ref Range | Performed | Pathologist | | | | | At | Signature | + + + + + + | ESOPHAGUS | Exam: Single contrast | | | | | | barium esophagram | | | | | | Findings: The cervical | | | | | | segment is discussed in | | | | | | the modified | | | | | | bariumswallowing study. | | | | | | No mucosal | | | | | | abnormalities are seen. | | | | | | Multipletertiary | | | | | | contractions are seen in | | | | | | the distal esophagus | | | | | | with evidencefor | | | | | | previous fundoplication. | | | | | | There is evidence for | | | | | | small axial andsmall | | | | | | paraesophageal hernia | | | | | | but no evidence for | | | | | | reflux. Survey ofthe | | | | | | stomach and proximal | | | | | | duodenum is | | | | | | unremarkable. | | | | | | Impression: Distal | | | | | | esophageal dysmotility | | | | | | characterized by | | | | | | multipletertiary | | | | | | contractions. Small | | | | | | and presumably recurrent | | | | | | axial andparaesophageal | | | | | | hernia with no | | | | | | demonstrable reflux. I | | | | | | have personally viewed | | | | | | this procedure/exam and | | | | | | reviewed this report. | | | | | | Author: HETAL CAREY | | | | | | Priyanka HUSSEINReviewer: | | | | | | HETAL HUSSEIN M.D. | | | | | | STATUS FINAL / Dr. | | | | | | HETAL HUSSEIN | | | | + + + + + + + + | Specimen | + + | | + + + +---------+ + + | Performing | Address | City/State/Zipcode | Phone Number | | Organization | | | | + +---------+ + + | [facility] | | | | | RADIOLOGY | | | | + +---------+ + + documented in this encounter Visit Diagnoses + + | Diagnosis | + + | Glottic stenosis - Primary Stenosis of larynx | + + | Pharyngeal dysphagia Dysphagia, pharyngeal phase | + + | Esophageal stenosis Stricture and stenosis of esophagus | + + | Larynx edema Edema of larynx | + + documented in this encounter"
--- OUTSIDE RECORDS SUMMARY | ~2019-02-20 | XMS | Encounter Summary ---
Demographics + + + | Address | [address] | | | [place] [address] | + + + | Home Phone | | + + + | Preferred Language | Unknown | + + + | Marital Status | | + + + | Pentecostal Affiliation | LUT | + + + [...] Team Providers + +------+ + | Care C Engineer Name | Role | Phone | + +------+ + | Maycol Knutson MD | PCP | | + +------+ + Encounter Details +--------+ + + + + | Date | Type | Department | Care Team | Description | +--------+ + + + + | 01/11/ | Procedure - | | Record, Operation [...] + + | OPERATION RECORD | | 01/11/1999 | | Results for this | | | | | | procedure are in the | | | | | | results section. | + +--------+ + + + documented in this encounter Results OPERATION RECORD (01/11/1999) + + | Transcriptions | + + | Interface, Knot Borer In - 02/21/2006 3:03 AM PST | | [place] [address] | | [place], [place] [address] | | [facility] Center[facility]ATION RECORDMed Rec No.: | | [id number] Date: 01/11/1999Name: Jose Martin Rose SURGEON:Dylan Arthur, | | Sonia.ASSISTANTS: Priyanka Lennon, | | PriyankaPREOPERATIVE DIAGNOSIS(ES):Laryngeal stenosis.POSTOPERATIVE DIAGNOSIS(ES):Laryngeal | | stenosis.OPERATIONS PERFORMED:Direct laryngoscopy with dilation and application of | | Mitomycin-C.SPECIMEN(S) REMOVED:Posterior glottic lesion.ANESTHESIA:General with jet | | ventilation.ESTIMATED BLOOD | | LOSS:Negligible.DRAINS:None.COMPLICATIONS:None.INDICATIONS:Patient is a 54-year-old | | male who underwent a right verticalhemilaryngectomy in February 1998. He has | | subsequently developed laryngealstenosis and presented today for dilation.FINDINGS:1. | | Glottic stenosis with dimensions equivalent to a #16 laryngeal dilator.2. Subglottis | | without stenosis.3. Posterior glottic mucosal irregularity, biopsied.PROCEDURE:After | | consent was obtained, the patient was identified and brought to theoperating room. | | Patient was placed in the supine position and generalanesthesia administered | | without difficulty. The laryngoscope was insertedand the glottis visualized. The | | patient was placed in suspension. Thestylette was inserted into the laryngoscope | | and attached to the jetventilator. Jet ventilation was established and | | good ventilationconfirmed. Epinephrine saturated pledgets were placed on the | | laryngealmucosa. The glottis and subglottis were examined with a telescope. | | Theglottis was then serially dilated beginning with the smallest and endingwith the | | largest (#32) dilator. 5 mg of Mitomycin-C was reconstituted in12.5 cc of normal | | saline. This mixture was placed on pledgets which wereserially applied to the glottic | | mucosa. Using the abutting biopsy forceps,the posterior glottic region was biopsied. | | Epinephrine-saturated pledgetswere again placed on the mucosa.The patient was taken out | | of suspension and the laryngoscope was removed.Tooth guard was used throughout the | | procedure. Patient emerged fromanesthesia without difficulty and was brought to | | the Post Anesthesia CareUnit in good condition.ATTENDING SURGEON'S ATTESTATION:Pursuant | | to Federal Medicare billing regulations, I certify that Dr. Winter was present and | | participating for the entire procedure.Jose Juan Rodriguez M.D. | | Dylan Arthur M.D.JRA:x17D: 01/11/1999T: 01/11/[id number]: | |ESTIMATED BLOOD LOSS: | |Negligible. | | | |DRAINS: | |None. | | | |COMPLICATIONS: | |None. | | | |INDICATIONS: | |Patient is a 54-year-old male who underwent a right vertical | |hemilaryngectomy in February 1998. He has subsequently developed laryngeal | |stenosis and presented today for dilation. | | | |FINDINGS: | |1. Glottic stenosis with dimensions equivalent to a #16 laryngeal dilator. | |2. Subglottis without stenosis. | |3. Posterior glottic mucosal irregularity, biopsied. | | | |PROCEDURE: | |After consent was obtained, the patient was identified and brought to the | |operating room. Patient was placed in the supine position and general | |anesthesia administered without difficulty. The laryngoscope was inserted | |and the glottis visualized. The patient was placed in suspension. The | |stylette was inserted into the laryngoscope and attached to the jet | |ventilator. Jet ventilation was established and good ventilation | |confirmed. Epinephrine saturated pledgets were placed on the laryngeal | |mucosa. The glottis and subglottis were examined with a telescope. The | |glottis was then serially dilated beginning with the smallest and ending | |with the largest (#32) dilator. 5 mg of Mitomycin-C was reconstituted in | |12.5 cc of normal saline. This mixture was placed on pledgets which were | |serially applied to the glottic mucosa. Using the abutting biopsy forceps, | |the posterior glottic region was biopsied. Epinephrine-saturated pledgets | |were again placed on the mucosa. | | | |The patient was taken out of suspension and the laryngoscope was removed. | |Tooth guard was used throughout the procedure. Patient emerged from | |anesthesia without difficulty and was brought to the Post Anesthesia Care | |Unit in good condition. | | | |ATTENDING SURGEON'S ATTESTATION: | |Pursuant to Federal Medicare billing regulations, I certify that Dr. Richardson | |Jerson was present and participating for the entire procedure. | | | | | | | |Jose Juan Rodriguez M.D. Dylan Arthur M.D. | | | |JRA:x17 | | | | | | | | | |[id number] | | | |CC: | + + documented in this encounter Visit Diagnoses Not on filedocumented in this encounter"
--- OUTSIDE RECORDS SUMMARY | ~2019-02-20 | XMS | Encounter Summary ---
Demographics + + + | Address | [address] | | | [place] [address] | + + + | Home Phone | | + + + | Preferred Language | Unknown | + + + | Marital Status | | + + + | Bahai Affiliation | 1028 | + + + [...] [place] | | | | | [address] | | + + + + + Care Team Providers + +------+ + | Care Operations Support Manager Name | Role | Phone | + +------+ + | Maycol Knutson MD | PCP | | + +------+ + Encounter Details +--------+ + + + + | Date | Type | Department | Care Team | Description | +--------+ + + + + | 08/08/ | Hospital | [facility] | Conversion | Pain | | 2018 | Encounter | CONVERSION [address] | Transaction, | | | | | [address] | Provider Unknown | | | | | [place], [place] | [phone] | | | | | [address] | | | | | | [phone] | | | +--------+ + + + [...] | | | | | | [place] [address] | | | | | | [phone] | | | | | | | | +--------+---------+ + + + | 05/19/ | Office | Cardiology | Cristian Mccoy, | | | 2019 | Visit | | [address] | | | | | | [place] | | | | | | [address] | | | | | | | [...]
--- OUTSIDE RECORDS SUMMARY | ~2019-02-20 | XMS | Encounter Summary ---
Demographics + + + | Address | [address] | | | [place] [address] | + + + | Home Phone | | + + + | Preferred Language | Unknown | + + + | Marital Status | | + + + | Sabianist Affiliation | LUT | + + + [...] Team Providers + +------+ + | Care Lab Director Name | Role | Phone | + +------+ + PCP | Unavailable | + +------+ + Encounter Details +--------+ + + + + | Date | Type | Department | Care Team | Description | +--------+ + + + + | 01/11/ | Results | Otolaryngology | Dylan Arthur MD | | | 1998 | Only | Head and Neck | | | | | | Surgery Services at | | | | | | [facility] [address] | | | | | | [address] | | | | | | Mailcode: [address] | | | | | | [facility] | | | | | | [place], [place] | | | | | | [address] | | | | | | [phone] | | | +--------+ + + + [...] + | SURGICAL PATHOLOGY | Routin | 01/11/1999 | | Results for this | | | e | | | procedure are in the | | | | | | results section. | + +--------+ + + + | COA MASTER PANEL | Routin | 01/10/1999 | | Results for this | | | e | 1:30 PM | | procedure are in the | | | | PDT | | results section. | + +--------+ + + + | INR | Routin | 01/10/1999 | | Results for this | | | e | 1:30 PM | | procedure are in the | | | | PDT | | results section. | + +--------+ + + + | APTT (ACT. PART. | Routin | 01/10/1999 | | Results for this | | THROMBO TIME) | e | 1:30 PM | | procedure are in the | | | | PDT | | results section. 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 | | | | | | There is prominent | | | | | | atypia of fibroblasts in | | | | | | theunderlying stroma. | | | | | | No definite invasion is | | | | | | seen. These probably | | | | | | representchanges related | | | | | | to previous | | | | | | irradiation, however | | | | | | clinical follow-up | | | | | | isrecommended. Clinical | | | | | | History:Posterior | | | | | | glottic lesion, Status | | | | | | post right vertical | | | | | | hemilaryngectomy,Decembe | | | | | | r 1997 ([id number]). | | | | | | Gross | | | | | | Description:Received in | | | | | | formalin, labeled | | | | | | "posterior commissure", | | | | | | is a 1.0 x 0.5 x 0.4cm | | | | | | irregular piece of | | | | | | rubbery dahl tissue. | | | | | | Cassette Index:One | | | | | | cassette, | | | | | | .JK:DT:TH:tdRendering | | | | | | Diagnostician: Rosa M | | | | | | Valentina | | | | | | PriyankaPathologistElectroni | | | | | | monika Signed | | | | | | 01/16/1999Comment: | | | | | | SOURCE OF SPECIMEN: | | | | | | Posterior commisure | | | | + + + + + + + + | Specimen | + + | | + + + + + + + | Performing | Address | City/State/Zipcode | Phone Number | | Organization | | | | + + + + + | [facility] | [address] | [place] [address] | | | PATHOLOGY | [address] | | | + + + + + | [facility] | [address] | [place] [address] | | | PATHOLOGY | [address] | | | + + + + + PROTHROMBIN TIME (01/10/1999 1:30 PM PDT) + + + + + + | Component | Value | Ref Range | Performed | Pathologist | | | | | At | Signature | + + + + + + | INR | 0.88 (L)Comment: | 0.98 - 1.08 INR | [facility] | | | | PT INR Therapeutic | | DEPARTMENT | | | | ranges for full | | OF | | | | anticoagulation: | | PATHOLOGY | | | | INR for | | | | | | Venous Thromboembolism | | | | | | | | | | | | (2.0-3.0)INR | | | | | | INR for most | | | | | | patients with mech. | | | | | | valves (2.5-3.5)INR | | | | + + + + + + + + | Specimen | + + | | + + + + + + + | Performing | Address | City/State/Zipcode | Phone Number | | Organization | | | | + + + + + | [facility] | [address] | [place] [address] | | | PATHOLOGY | [address] | | | + + + + + | [facility] | [address] [facility] | [place] [address] | | | PATHOLOGY | [address] | | | + + + + + APTT (ACT. PART. THROMBO TIME) (01/10/1999 1:30 PM PDT) + + + + + + | Component | Value | Ref Range | Performed | Pathologist | | | | | At | Signature | + + + + + + | APTT | 31.5Comment: | 27.0 - 35.0 | [facility] | | | | APTT Therapeutic Range | seconds | DEPARTMENT | | | | | | OF | | | | | | PATHOLOGY | | | | (70-110)sec | | | | | | Heparin levels | | | | | | of 0.35-0.7 U/mL | | | | + + + + + + + + | Specimen | + + | | + + + + + + + | Performing | Address | City/State/Zipcode | Phone Number | | Organization | | | | + + + + + | [facility] | [address] | [place] [address] | | | PATHOLOGY | [address] | | | + + + + + | [facility] | [address] | [place] [address] | | | PATHOLOGY | [address] | | | + + + + + COA MASTER PANEL (01/10/1999 1:30 PM PDT) + + + + + + | Component | Value | Ref Range | Performed | Pathologist | | | | | At | Signature | + + + + + + | INR | 0.88 (L)Comment: | 0.98 - 1.08 INR | [facility] | | | | PT INR Therapeutic | | DEPARTMENT | | | | ranges for full | | OF | | | | anticoagulation: | | PATHOLOGY | | | | INR for | | | | | | Venous Thromboembolism | | | | | | | | | | | | (2.0-3.0)INR | | | | | | INR for most | | | | | | patients with mech. | | | | | | valves (2.5-3.5)INR | | | | + + + + + + | APTT | 31.5Comment: | 27.0 - 35.0 | [facility] | | | | APTT Therapeutic Range | seconds | DEPARTMENT | | | | | | OF | | | | | | PATHOLOGY | | | | (70-110)sec | | | | | | Heparin levels | | | | | | of 0.35-0.7 U/mL | | | | + + + + + + + + | Specimen | + + | | + + + + + + + | Performing | Address | City/State/Zipcode | Phone Number | | Organization | | | | + + + + + | [facility] | [address] | [place] [address] | | | PATHOLOGY | [address] | | | + + + + + | [facility] | [address] | [place] [address] | | | PATHOLOGY | [address] | | | + + + + + documented in this encounter Visit Diagnoses Not on filedocumented in this encounter
--- OUTSIDE RECORDS SUMMARY | ~2019-02-20 | XMS | Encounter Summary ---
Demographics + + + | Address | [address] | | | [place] [address] | + + + | Home Phone | | + + + | Preferred Language | Unknown | + + + | Marital Status | | + + + | Taoist Affiliation | 1028 | + + + | Race | Unknown | + + + | Ethnic Group | Unknown | + + + Author + + + | Author | [facility] | | | and [place] | + + + | Organization | [facility] | | | [...] [place] | | | | | [address] | | + + + + + Care Team Providers + +------+ + | Care Electronics Engineering Technician Name | Role | Phone | + +------+ + | Maycol Knutson MD | PCP | | + +------+ + Encounter Details +--------+ + + + + | Date | Type | Department | Care Team | Description | +--------+ + + + + | 10/23/ | Hospital | [facility] | Tameka Duke | Thoracic aortic | | 2018 - | Encounter | [facility] | MD Leeroy [address] | aneurysm without | | | | CARE FLOOR [address] [place], [place] | rupture (HCC); ASCVD | | 10/26/ | | [address] | [id number] | (arteriosclerotic | | 2018 | | [place], [place] | | cardiovascular | | | | [address] | | disease); Chronic | | | | [phone] | | atrial fibrillation | | | | | | ([facility]); Essential | | | | | | hypertension; | | | | | | Precordial pain; | | | | | | Dysphagia, | | | | | | unspecified type | +--------+ + + + + Social [...] documented as of this encounter Discharge Summaries Junie Delvalle MD - 10/26/2017 10:43 AM PDT Discharge Summaries by Junie Delvalle MD at 10/26/17 1043 Author: Junie Delvalle MD Service: Hospitalist Author Type: Physician Filed: 10/26/17 1221 Date of Service: 10/26/17 104 Status: Signed Ic Designer Custom: Junie Delvalle MD (Physician) Patient ID: Pavithra Rose [id number] 72 y.o. 1945 Admit date: 10/23/2017 Discharge [...] radiologist report and is used for image [facility] [employer] only Ct Head Without Contrast Result Date: 10/23/2017 This is a non-reportable procedure without a radiologist report and is used for image [facility] [employer] only Ct Chest Without Contrast Result Date: 10/24/2017 HISTORY: 72 years year-old Male, hemoptysis. TECHNIQUE: CT through the chest. Noncontrast e xamination. Automatic dose adjustment to minimize patient exposure. PRIOR EXAMINATION: Earli er chest radiograph. FINDINGS: Aromatherapist demonstrates cardiomegaly, sternal wires and dense reti [...] radiologist report and is used for image [employer] only Cl Coronary Angio With Grafts Result [...] needle, right femoral access was obtained. A 5-Icelandic sheath was introduced without any difficulty. A 0.035 wire was used and advanced under fluoroscopic gu idance into the ascending aorta. A 5-Icelandic JL4 catheter was used and advanced over [...] the wire was don e with a 5-Icelandic multipurpose catheter that selectively engaged the right SVG to RCA graft. Multiple views were obtained. Exchange over the wire was done with 5-Icelandic AL1 catheter t hat selectively engaged the [...] LA/Ao: 1.22 D-E Excursion: 2.29 cm E-F Desoto: 0.09 m/s AV maxP.18 mmHg AV meanP.51 [...] TV A Ed: 0.00 m/s TV Dec Desoto: 3.93 m/s2 TV Dec Time: 207.73 ms TV E Ed: 0.56 m/s TV E /A Ratio: 69.55 Master Ocean Yacht: ADAM Authenticated by: Cecilia Youngdayton Report Date/Time: 018 13:7:33 1. The left [...] has been reviewed and interpreted by the physicketan meyers as the performing physician in the [...] and GI bleed who we nt to [facility] with productive cough, shortness of breath and hemoptysis seconda ry to aspiration pneumonia and found to have positive troponin around 1 hence he was transf erred to [facility] for further workup and treatment. Hospital course by issues: #1 non-ST elevation [place]: Status post cardiac cath which showed triple-vessel disease and rec ommend medical management only. Patient started on Plavix, atorvastatin, patient allergic t o beta barbara has not initiated and patient currently asymptomatic. 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 Nelson Laird MD [address], [address] [place] [address] Nelson Laird MD [address], [address] [place] [id number] In 1 week Cecilia Mccoy MD [address] [place] [address] In 1 week Signed: JUNIE DELVALLE 10/26/2017 12:21 PM documented in this en counter Medications at Time of Discharge + + [...] documented as of this encounter Progress Notes Conversion Transaction, Provider Unknown - 10/26/2017 2:34 PM PDTFormatting of this note m ight be different from the original. Nurse Progress Note by Socorro Guo RN at 10/26/17 1434 Author: Socorro Guo RN Service: (none) Author Type: Registered Nurse Filed: 10/26/17 1701 Date of Service: 10/26/17 1434 Status: Signed Ic Designer Custom: Socorro Guo RN (Registered Nurse) Pt given discharge instructions with present. No questions or concerns at this time. I V removed, wound dressing changed, and pt ready. [facility] Guo RN ecilia Borges ra, MD - 10/26/2017 9:37 AM PDT Progress Notes by Cecilia Mccoy MD at 10/26/17 0937 Author: Cecilia Mccoy MD Service: Cardiology Author Type: Physician Filed: 10/26/17 0955 Date of Service: 10/26/17936 Status: Signed Ic Designer Custom: Cecilia Mccoy MD (Physician) [facility] Service: Cardiology Progress Note Name of Geology Instructor: Cecilia Mccoy MD I have seen the [...] Q6H, Junie Delvalle MD, 3 g at 10/26/17 0442 [...] PRN, Cecilia Mccoy MD, 50 mcg at 10/24/17 191 ferric gluconate (FERRLECIT) 250 mg in sodium chloride (IV) 0.9 % 100 mL IVPB, 250 mg, Intravenous, Q24H, Junie Delvalle MD furosemide (LASIX) tablet 20 mg, 20 mg, Oral, Daily, Tameka Duke MD, 20 mg at 0 10/26/17 09 guaiFENesin (MUCINEX) 12 hr tablet 600 mg, 600 mg, Oral, TID, Cecilia Mccoy MD, 60 0 mg at 10/26/17 09 ipratropium-albuterol (DUO-NEB) 0.5-2.5 mg/3mL nebulizer solution 3 mL, 3 mL, Nebuliza tion, Q6H, Tameka Duke MD, 3 mL at 10/26/17 0315 levothyroxine (SYNTHROID) tablet 75 mcg, 75 mcg, Oral, QAM AC, Tameka Duke MD, 75 mcg at 10/26/17 09 lidocaine 1 % injection, , , Once PRN, Cecilia Mccoy MD, 10 mL at 10/24/17 191 losartan (COZAAR) tablet 50 mg, 50 mg, Oral, Daily, Tameka Duke MD, 50 mg at 09 morphine (PF) injection 2 mg, 2 mg, Intravenous, Q4H PRN, Junie Delvalle MD, 2 mg at 0 10/24/172054 nitroGLYCERIN (NITRO-BID) 2 % ointment 0.5 inch, 0.5 inch, Topical, Q6H, Tameka reynolds MD, 0.5 inch at 10/24/17 06 nitroGLYCERIN (NITROSTAT) SL tablet 0.4 mg, 0.4 [...] Tameka Duke MD, 100 mg at 10/26/17 09 sodium bicarbonate buffer (NEUT) injection, , , Once PRN, Cecilia Mccoy MD, 5 mL a t 10/24/171911 saline lock IV, , , Continuous AND [...] not amenable to PCI. 2. Non-ST elevation [place]. 3. Dysphagia. 4. Hemoptysis minimal, improved. 5. Chronic atrial fibrillation. On rate control strategy and anticoagulation. CHADSVASc sco re of 4. 6. AAA. 7. Coronary artery disease [place] [address]. 8. RBBB. 9. Hypertension blood pressures controlled. [...] Status: Full Code Cecilia Mccoy MD 10/26/2017 onversion Transac tion, Provider Unknown - 10/26/2017 6:22 AM PDTFormatting of this note might be different f rom the original. Nurse Progress Note by Andrea Douglass RN at 10/26/17621 Author: Andrea Douglass RN Service: (none) Author Type: Registered Nurse Filed: 10/26/17621 Date of Service: 10/26/17621 Status: Signed Ic Designer Custom: Andrea Douglass RN (Registered Nurse) VSS and pt afebrile. SpO2 maintained > 90% on RA. Pt reported feeling SOB. RT at bedside f or neb treatment, improvement noted. Pt continues to refuse nitrobid, stating "it gives me too big of a headache". Pt ambulating in room, tolerating well. No acute changes from previous assessment. Chart check completed by this RN. Andrea Douglass RN onver ernesto Transaction, Provider Unknown - 10/25/2017 6:44 PM PDT Nurse Progress Note by Socorro Guo RN at 10/25/171843 Author: Socorro Guo RN Service: (none) Author Type: Registered Nurse Filed: 10/25/171853 Date of Service: 10/25/171843 Status: Signed Ic Designer Custom: Socorro Guo RN (Registered Nurse) VSS this shift. Pt continued on IV ABX. Plavix started. Speech consulted with patient and p ts about plan for diet at home. Pt resting this shift, no questions or concerns at this time. Chart check complete. Socorro Guo RN onver ernesto Transaction, Provider Unknown - 10/25/2017 3:28 PM PDT Case Management by Lelo Barrera RN at 10/25/17 1528 Author: Lelo Barrera RN Service: (none) Author Type: Registered Nurse Filed: 10/25/17 1529 Date of Service: 10/25/17 1528 Status: Signed Ic Designer Custom: Lelo Barrera RN (Registered Nurse) Discharge Planning: no change at this time to ADC plan of home with spouse. Junie Brody MD - 10/25/2017 3:16 PM PDTFormatting of this note might be different from the or iginal. Progress Notes by Junie Delvalle MD at 10/25/17 6156 Author: Junie Delvalle MD Service: Hospitalist Author Type: Physician Filed: 10/25/17 1610 Date of Service: 10/25/17 1516 Status: Signed Ic Designer Custom: Junie Delvalle MD (Physician) Hospitalist Progress Note Pavithra Rose 72 y.o. [id number] 8108/8108-1 male [facility] Day: LOS: 2 days Patient Summary: 72-year-old [...] cardiac stress test study who went to [facility] with ongoing productive cough, shortness of breath and hemoptysis, where he was found to hav e positive troponin and chest x-ray showed pneumonia and patient was [facility] work[facility] and treatment. The patient [...] Anaphylaxis Diltiazem Edema Gabapentin Other (See Comments) BREAD DUMPER Imipramine Other (See Comments) Urinary retention Metoprolol [...] Procedure Component Value Units Date/Time Iron panel [[id number]] Collected: 10/25/171442 Specimen: Blood Updated: 10/25/171449 Vitamin B12 [[id number]] Collected: 10/25/171442 Specimen: Blood Updated: 10/25/17 1450 Ferritin [[id number]] Collected: 10/25/171442 Specimen: Blood Updated: 10/25/17 1450 Folate [[id number]] Collected: 10/25/171442 Specimen: Blood Updated: 10/25/17 1450 CBC W/Auto Diff (Reflex to Manual) [[id number]] (Abnormal) Collected: 10/25/17 1000 Specimen: Blood Updated: [...] 0.04 K/uL MORPHOLOGY 2+ Comprehensive metabolic panel [[id number]] (Abnormal) Collected: 10/25/17 1000 Specimen: Blood Updated: [...] U/L EGFR 59 (L) mL/min/1.73m2 Sputum culture [[id number]] Collected: 10/24/17 0400 Specimen: Sputum from Sputum [...] WILL BE HELD 48 HOURS. Troponin I [[id number]] (Abnormal) Collected: 10/24/17 0551 Specimen: Blood Updated: 10/24/17 0658 TROPONIN I 1.28 (HH) ng/mL CBC W/Auto Diff (Reflex to Manual) [[id number]] (Abnormal) Collected: 10/24/17 0157 Specimen: Blood Updated: 10/24/17 0437 WBC 11.05 (H) K/uL RBC 4.56 M/uL [...] K/uL Platelet Estimate ADEQUATE MORPHOLOGY 2+ Magnesium [[id number]] Collected: 10/24/17156 Specimen: Blood Updated: 10/24/17433 MAGNESIUM 1.8 mg/dL Phosphorus [[id number]] Collected: 10/24/17156 Specimen: Blood Updated: 10/24/17433 PHOSPHORUS 3.4 mg/dL TSH [[id number]] Collected: 10/24/17156 Specimen: Blood Updated: 10/24/17433 TSH 4.150 uIU/mL Basic metabolic panel [[id number]] (Abnormal) Collected: 10/24/17156 Specimen: Blood Updated: 10/24/17433 SODIUM 138 mmol/L POTASSIUM 4.3 mmol/L CHLORIDE 104 mmol/L CO2 24 mmol/L ANION GAP AGAP 14 mmol/L GLUCOSE 75 mg/dL BUN 14 mg/dL CREATININE 1.3 mg/dL BUN/CREAT 11 CALCIUM 8.6 mg/dL EGFR 54 (L) mL/min/1.73m2 Lipid panel [[id number]] (Abnormal) Collected: 10/24/17156 Specimen: Blood Updated: 10/24/17433 CHOLESTEROL 103 mg/dL Triglycerides 116 mg/dL HDL CHOL 24 (L) mg/dL LDL CALC 56 mg/dL Troponin I [[id number]] (Abnormal) Collected: 10/24/17156 Specimen: Blood Updated: 10/24/17 0251 TROPONIN I 1.72 (HH) ng/mL Protime-INR [[id number]] Collected: 10/24/17156 Specimen: Blood Updated: 10/24/17 0221 INR 1.2 Septic Lactic Acid [[id number]] Collected: 10/23/17 2350 Updated: 10/24/17 0023 LACTIC ACID 1.1 mmol/L Troponin I [[id number]] (Abnormal) Collected: 10/23/17 2212 Specimen: Blood Updated: 10/23/17 225 TROPONIN I 1.76 (HH) ng/mL CBC: Lab [...] radiologist report and is used for image stora ge only Ct Head Without Contrast Result Date: 10/23/2017 This is a non-reportable procedure without a radiologist report and is used for image stora ge only Ct Chest Without Contrast Result Date: 10/24/2017 HISTORY: 72 years year-old Male, hemoptysis. TECHNIQUE: CT through the chest. Noncontrast e xamination. Automatic dose adjustment to minimize patient exposure. PRIOR EXAMINATION: [facility] chest radiograph. FINDINGS: Aromatherapist demonstrates cardiomegaly, sternal wires and dense reti [...] radiologist report and is used for image [employer] only Cl Coronary Angio With Grafts Result [...] needle, right femoral access was obtained. A 5-Icelandic sheath was introduced without any difficulty. A 0.035 wire was used and advanced under fluoroscopic gu idance into the ascending aorta. A 5-Icelandic JL4 catheter was used and advanced over [...] the wire was don e with a 5-Icelandic multipurpose catheter that selectively engaged the right SVG to RCA graft. Multiple views were obtained. Exchange over the wire was done with 5-Icelandic AL1 catheter t hat selectively engaged the [...] LA/Ao: 1.22 D-E Excursion: 2.29 cm E-F Desoto: 0.09 m/s AV maxP.18 mmHg AV meanP.51 [...] TV A Ed: 0.00 m/s TV Dec Desoto: 3.93 m/s2 TV Dec Time: 207.73 ms TV E Ed: 0.56 m/s TV E /A Ratio: 69.55 Master Ocean Yacht: ADAM Authenticated by: Cecilia Mccoy Report Date/Time: 018 13:7:33 1. The left [...] than 35 minutes. JUNIE DELVALLE MD 10/25/2017 onversion Transactio n, Provider Unknown - 10/25/2017 2:22 PM PDT Progress Notes by Ariadne El CCC-GAME DEVELOPER at 10/25/17 1422 Author: ABEL CampbellGAME DEVELOPER Service: (none) Author Type: Speech and Imaging Nurse ologist Filed: 10/25/17 1423 Date of Service: 10/25/171421 Status: Signed Ic Designer Custom: Ariadne El CCC-GAME DEVELOPER (Speech and Language Pathologist) BEDSIDE SWALLOW GAME DEVELOPER Last Visit GAME DEVELOPER Received On: 10/25/17 Requires GAME DEVELOPER Follow Up: Yes Recommendations Liquids Consistency Recommendations: [...] dysphagia follow-up treatment to ensure understanding of MB SS results and recommendations. Provided and reviewed [...] if family/pt with additional questions. Staff Notified: MD RN Plan of Care Treatment Plan: ST to follow, Dysphagia treatment Treatment Frequency: Followup x 1 Care Duration (Days): 2 Days Follow up treatments: Patient/Family education, Diet tolerance monitoring Swallowing Treatment: Yes Patient Assessment Respiratory Status: O2 via nasual cannula History of Intubation: No Behavior/Cognition: Alert, Cooperative Dentition: Adequate Goals are progressing unless otherwise indicated. Dysphagia Goals Veterinary Assistant Goals: Safe/efficient oral intake Pt will have [...] evidence of learning [] Refused Ariadne El CCC-GAME DEVELOPER onver ernesto Transaction, Provider Unknown - 10/25/2017 5:58 AM PDT Nurse Progress Note by Andrea Douglass RN at 10/25/17 0558 Author: Andrea Douglass RN Service: (none) Author Type: Registered Nurse Filed: 10/25/1759 Date of Service: 10/25/17557 Status: Signed Ic Designer Custom: Andrea Douglass RN (Registered Nurse) Pt arrived on unit from IR at [address] at 40 mmHg. Post op VSS and pt af ebrile. SpO2 maintained > 88% on 1-2L NC. FemoStop removed, site remains soft and dry. Pt ambulating in room, tolerating well. Clear liquids tolerated well, advanced to Full liqu id for breakfast. No acute changes from previous assessment. Chart check completed by this RN. Andrea Douglass RN Cecilia Cleveland ra, MD - 10/25/2017 5:46 AM PDT Progress Notes by Cecilia Mccoy MD at 10/25/17545 Author: Cecilia Mccoy MD Service: Cardiology Author Type: Physician Filed: 10/25/17710 Date of Service: 10/25/17545 Status: Signed Ic Designer Custom: Cecilia Mccoy MD (Physician) [facility] Service: Cardiology Progress Note Name of Geology Instructor: Cecilia Mccoy MD I have seen the patient on 10/25/2017. Had C showed severe disease in LCX and occluded [...] Delvalle MD, 8 1 mg at 10/24/17 8519 atorvastatin (LIPITOR) tablet 40 mg, 40 mg, [...] Daily, Tameka Duke MD, Stopp ed at 10/23/17 224 famotidine (PEPCID) tablet 40 mg, 40 mg, Oral, Daily, Tameka Duke MD, Stopped a t 10/23/172248 fentaNYL (SUBLIMAZE) injection, , , Once PRN, Cecilia Mccoy MD, 50 mcg at 10/24/171918 furosemide (LASIX) tablet 20 mg, 20 mg, Oral, Daily, Tameka Duke MD, Stopped at 10/23/17 224 ipratropium-albuterol (DUO-NEB) 0.5-2.5 mg/3mL nebulizer solution 3 mL, 3 mL, Nebuliza tion, Q6H, Tameka Duke MD, 3 mL at 10/25/17 0632 levothyroxine (SYNTHROID) tablet 75 mcg, 75 mcg, Oral, QAM AC, Tameka Duke MD, 75 mcg at 10/25/17 0543 lidocaine 1 % injection, , , Once PRN, Cecilia Mccoy MD, 10 mL at 10/24/17 1912 losartan (COZAAR) tablet 50 mg, 50 mg, Oral, Daily, Tameka Duke MD, Stopped at 10/23/17 2248 morphine (PF) injection 2 mg, 2 mg, [...] Oral, Daily, Tameka Duke MD, Stopped at 10/23/17 2248 sodium bicarbonate buffer (NEUT) injection, , , Once PRN, Cecilia Mccoy MD, 5 mL a t 10/24/17 191 sodium chloride (bolus) 0.9 % 500 mL, 500 mL, Intravenous, Once PRN, Cecilia Mccoy MD saline lock IV, , , Continuous AND sodium chloride (PF) 0.9 % flush 10 mL, 10 mL, Intravenous, Q8H, Tameka Duke MD, 10 mL at 10/25/17 0410 tamsulosin (FLOMAX) capsule 0.4 mg, 0.4 mg, Oral, after dinner, Tameka Duke MD, 0.4 mg at 10/23/17 2254 zolpidem (AMBIEN) tablet 5 mg, 5 mg, [...] and dry. DATA Recent Labs Lab 10/24/17 0157 NA 138 K 4.3 CO2 24 BUN 14 CREATININE 1.3 EGFR 54* MG 1.8 Recent Labs Lab 10/24/17 0157 WBC 11.05* HGB 11.5* HCT 35.3* MCV [...] not amenable to PCI. 2. Non-ST elevation [place]Y. 3. Dysphagia. 4. Hemoptysis minimal, improved. 5. Chronic atrial fibrillation. On rate control strategy and anticoagulation. CHADSVASc sco re of 4. 6. AAA. 7. Coronary artery disease [place] [address]. 8. RBBB. 9. Hypertension blood pressures controlled. [...] Code Status: Full Code Cecilia Mccoy MD 10/25/2017 onversion Transac tion, Provider Unknown - 10/24/2017 8:30 PM PDTFormatting of this note might be different f rom the original. Progress Notes by Luca Toussaint RPH at 10/24/172029 Author: Luca Toussaint RPH Service: Pharmacy Author Type: Pharmacist Filed: 10/24/172029 Date of Service: 10/24/172029 Status: Signed Ic Designer Custom: Luca Toussaint RPH (Pharmacist) Note ccl 49ml/min meds reviewed pharmacy will follow [facility] 2029 ecilia Borges ra, MD - 10/24/2017 6:11 PM PDT Progress Notes by Cecilia Mccoy MD at 10/24/171810 Author: Cecilia Mccoy MD Service: Cardiology Author Type: Physician Filed: 10/24/171814 Date of Service: 10/24/171810 Status: Signed Ic Designer Custom: Cecilia Mccoy MD (Physician) [facility] Service: Cardiology Pre-Operative History & Physical Interval [...] more than one vascular access site, , [place], CVA, bleedin g (including the need for [...] to the problem list (consider: Infection 136.9). onversion Transac tion, Provider Unknown - 10/24/2017 5:40 PM PDTFormatting of this note might be different f rom the original. Nurse Progress Note by Jimmy Agarwal RN at 10/24/171739 Author: Jimmy Agarwal RN Service: (none) Author Type: Registered Nurse Filed: 10/24/171741 Date of Service: 10/24/171739 Status: Addendum Ic Designer Custom: Jimmy Agarwal RN (Registered Nurse) Related Notes: Original Note by Jimmy Agarwal RN (Registered Nurse) filed at 10/24/17 1 741 Patient NPO, aware of angiogram, all questions answered, new IV placed, femoral site preppe d. Patient resting in bed comfortably. Femoral +2, radial +2, Pedal +1, popliteal +2. JIMMY AGARWAL RN onver ernesto Transaction, Provider Unknown - 10/24/2017 4:01 PM PDT Case Management by Niya Maldonado RN at 10/24/17 1601 Author: Niya Maldonado RN Service: (none) Author Type: Registered Nurse Filed: 10/24/17 1617 Date of Service: 10/24/17 1601 Status: Signed Ic Designer Custom: Niya Maldonado, RN (Registered Nurse) 10/24/17 1500 Discharge Planning Evaluation Admitting Diagnosis NSTEMI Readmission No Living Arrangements Spouse/significant other Support Systems Spouse/significant other Type of Residence Private residence House type House-1 story Steps to enter Other (comment) (zero) Independent with ADL's Yes Independent with Mobility Yes Home Care Services No Caregiver after Discharge No Mental Status Oriented Prior functional status independent from home with spouse, Pt has no DME, no Dialysis, no h ome O2, does take Xarelto for Afib. Pt drives and uses no outside services at this time Anticipated Discharge Plan Post Acute Care Needs None at this time Plan communicated to patient/family Yes Resources Financial concerns No Transportation issues No Patient/Family concerns No Prescription Plan Yes Previous home health equipment No Vascular access device No Ostomy/Drains/Appliances No Anticipated Disposition Facility Type Home Met with Pt and Spouse and discussed discharge planning, Pt is a 72 y.o., male admitted for NSTEMI. Pt is independent at home with spouse, uses no DME, and per spouse prior to admissi on had no needs. CM to follow for discharge needs pending clinical outcomes Patient's PCP is:Nelson Laird Patient's insurance:Medicare/[employer] Coverage concerns: no concerns Medication coverage/concerns:No concerns Community resources utilized / needed: none currently, pt recently finished respiratory the [facility] outpatient that included PT Assistance in transportation: Spouse to transport Identification of any specific education / training: TBD Pending clinical outcomes Barriers to Discharge / Alternative housing needed: none Anticipated DCP: home with spouse NIYA MALDONADO RN Junie Brody MD - 10/24/2017 3:10 PM PDTFormatting of this note might be different from the or iginal. Progress Notes by Junie Delvalle MD at 10/24/17 1510 Author: Junie Delvalle MD Service: Hospitalist Author Type: Physician Filed: 10/25/17 1252 Date of Service: 10/24/17 1510 Status: Addendum Ic Designer Custom: Junie Delvalle MD (Physician) Related Notes: Original Note by Junie Delvalle MD (Physician) filed at 10/25/17 1251 Hospitalist Progress Note Pavithraroseanne Rose 72 y.o. [id number]/8108-1 male [facility] Day: LOS: 1 day Patient Summary: 72-year-old [...] cardiac stress test study who went to [facility] with ongoing productive cough, shortness of breath and hemoptysis, where he was found to hav e positive troponin and chest x-ray showed pneumonia and patient was transferred to [facility] for further workup and treatment. The patient [...] Anaphylaxis Diltiazem Edema Gabapentin Other (See Comments) BREAD DUMPER Imipramine Other (See Comments) Urinary retention Metoprolol [...] (37 C)] 98.6 F (37 C) (10/24 1121) BP: (127-164)/(61-74) 131/72 (10/24 1121) Heart Rate: [...] Procedure Component Value Units Date/Time Sputum culture [[id number]] Collected: 10/24/17 0400 Specimen: Sputum from Sputum Updated: 10/24/17704 Troponin I [[id number]] (Abnormal) Collected: 10/24/17550 Specimen: Blood Updated: 10/24/17657 TROPONIN I 1.28 (HH) ng/mL CBC W/Auto Diff (Reflex to Manual) [[id number]] (Abnormal) Collected: 10/24/17156 Specimen: Blood Updated: 10/24/17436 [...] K/uL Platelet Estimate ADEQUATE MORPHOLOGY 2+ Magnesium [[id number]] Collected: 10/24/17156 Specimen: Blood Updated: 10/24/17433 MAGNESIUM 1.8 mg/dL Phosphorus [[id number]] Collected: 10/24/17156 Specimen: Blood Updated: 10/24/17433 PHOSPHORUS 3.4 mg/dL TSH [[id number]] Collected: 10/24/17156 Specimen: Blood Updated: 10/24/17433 TSH 4.150 uIU/mL Basic metabolic panel [[id number]] (Abnormal) Collected: 10/24/17156 Specimen: Blood Updated: 10/24/17433 SODIUM 138 mmol/L POTASSIUM 4.3 mmol/L CHLORIDE 104 mmol/L CO2 24 mmol/L ANION GAP AGAP 14 mmol/L GLUCOSE 75 mg/dL BUN 14 mg/dL CREATININE 1.3 mg/dL BUN/CREAT 11 CALCIUM 8.6 mg/dL EGFR 54 (L) mL/min/1.73m2 Lipid panel [[id number]] (Abnormal) Collected: 10/24/17156 Specimen: Blood Updated: 10/24/17 0434 CHOLESTEROL 103 mg/dL Triglycerides 116 mg/dL HDL CHOL 24 (L) mg/dL LDL CALC 56 mg/dL Troponin I [[id number]] (Abnormal) Collected: 10/24/17156 Specimen: Blood Updated: 10/24/17 025 TROPONIN I 1.72 (HH) ng/mL Protime-INR [[id number]] Collected: 10/24/17156 Specimen: Blood Updated: 10/24/17 022 INR 1.2 Septic Lactic Acid [[id number]] Collected: 10/23/172349 Updated: 10/24/17 0023 LACTIC ACID 1.1 mmol/L Troponin I [[id number]] (Abnormal) Collected: 10/23/172211 Specimen: Blood Updated: 10/23/172253 [...] radiologist report and is used for image [facility] only Ct Head Without Contrast Result Date: 10/23/2017 This is a non-reportable procedure without a radiologist report and is used for image [facility] only Ct Chest Without Contrast Result Date: 10/24/2017 HISTORY: 72 years year-old Male, hemoptysis. TECHNIQUE: CT through the chest. Noncontrast e xamination. Automatic dose adjustment to minimize patient exposure. PRIOR EXAMINATION: [facility] er chest radiograph. FINDINGS: Aromatherapist demonstrates cardiomegaly, sternal wires and dense reti [...] LA/Ao: 1.22 D-E Excursion: 2.29 cm E-F Desoto: 0.09 m/s AV maxP.18 mmHg AV meanP.51 [...] TV A Ed: 0.00 m/s TV Dec Desoto: 3.93 m/s2 TV Dec Time: 207.73 ms TV E Ed: 0.56 m/s TV E /A Ratio: 69.55 Master Ocean Yacht: ADAM Authenticated by: Cecilia Mccoy Report Date/Time: 018 13:7:33 1. The left ventricle cavity is normal in size, mild concentric hypertrophy and normal sys tolic function EF 55%. Mild inferior and inferolateral hypokinetic segments. 2. Mild degener ative changes in the aortic and mitral valves. 3. There is no pericardial effusion. PROBLEM LIST Principal Problem: NSTEMI (non-ST elevated myocardial infarction) ([facility]) Active Problems: Aortic aneurysm (HCC) ASCVD (arteriosclerotic [...] worse and case discussed with Dr. Mccoy, asphalt spreader operator, who is in agreement and will ke [...] stable on symbicort JUNIE DELVALLE MD 10/24/2017 onversion Transactio n, Provider Unknown - 10/24/2017 3:05 PM PDT Progress Notes by Mary Baldwin RD at 10/24/17 1500 Author: Mary Baldwin RD Service: (none) Author Type: Registered Dietitian Filed: 10/24/17 8253 Date of Service: 10/24/17 6464 Status: Signed Ic Designer Custom: Mary Baldwin RD (Registered Dietitian) 10/24/17 1400 Subjective Timepoint Admit Pt c/o [...] hasn't eaten in two days. Is currently [employer] O prior to swallow study. Type of Food / Meals NPO Nutrition-Focused Physical Findings Overall Appearance Reports he appears much thinner and clothes have not been fitting him as well. Body Language Pt very pleasant. Extremities, Muscles and Bones Bruising Digestive System (Mouth to Rectum) GAME DEVELOPER following. Anthropometrics Weight change Admit wt: 71.8 [...] Estimated Energy Needs Total Energy Estimated Needs 0480-7863 kcal/day Method for Estimating Needs 25-30 kcal/kg at 71.8 kg admit wt Estimated Protein Needs Total Protein Estimated Needs 86-108 g/day Method for Estimating Needs 1.2-1.5 g/kg Recommendations Recommended energy needs ADAT to cardiac with textures/consistencies per GAME DEVELOPER. Upon diet adv ancement, encourage increased energy [...] Type (!) Moderate Lucy Doshi, RD 10/24/2017 onver ernesto Transaction, Provider Unknown - 10/24/2017 1:54 PM PDT Nurse Progress Note by Leia Saldana RN at 10/24/17 1354 Author: Leia Saldana RN Service: (none) Author Type: Registered Nurse Filed: 10/24/17 1359 Date of Service: 10/24/17 135 Status: Signed Ic Designer Custom: Leia Saldana RN (Registered Nurse) Patient's spouse advised of patient's sensitive skin when removing tape products and would like caregivers to be aware. Leia Saldana RN onver ernesto Transaction, Provider Unknown - 10/24/2017 11:04 AM PDT Nurse Progress Note by Jimmy Agarwal RN at 10/24/17 110 Author: Jimmy Agarwal RN Service: (none) Author Type: Registered Nurse Filed: 10/24/17 1104 Date of Service: 10/24/17 110 Status: Signed Ic Designer Custom: Jimmy Agarwal RN (Registered Nurse) [facility] med list complete. JIMMY AGARWAL RN onver ernesto Transaction, Provider Unknown - 10/24/2017 4:47 AM PDT Nurse Progress Note by Karen Estrada RN at 10/24/17 7595 Author: Karen Estrada RN Service: (none) Author Type: Registered Nurse Filed: 10/24/17 0451 Date of Service: 10/24/17 520 Status: Signed Ic Designer Custom: Karen Estrada RN (Registered Nurse) Pt. A&Ox4. VSS. Afebrile. Pt now on 2L satting 96%. Denies SOB or chest pain. 1mg morphine IV for 10/25 headache. Pt has been NPO since midnight. No acute changes from initial shift as sessment. Chart review completed by this RN. Karen Estrada RN onver ernesto Transaction, Provider Unknown - 10/23/2017 11:32 PM PDT Nurse Progress Note by Karen Estrada RN at 10/23/172331 Author: Karen Estrada RN Service: (none) Author Type: Registered Nurse Filed: 10/23/172335 Date of Service: 10/23/172331 Status: Signed Ic Designer Custom: Karen Estrada RN (Registered Nurse) Pt arrived to unit via EMS 2129. Pt on 3 liters Nasal cannula satting 92-95%. Denies SOB or chest pain. VSS. On tele. Md in to see pt. Pt in bed resting. No other needs at this time. Karen Estrada RN onver ernesto Transaction, Provider Unknown - 10/23/2017 10:07 PM PDT Progress Notes by Helen Soto RPH at 10/23/172206 Author: Helen Soto RPH Service: Pharmacy Author Type: Pharmacist Filed: 10/23/172206 Date of Service: 10/23/172206 Status: Signed Ic Designer Custom: Helen Soto RPH (Pharmacist) Renal Dosing Monitoring: Pavithra Rose 72 y.o. [...] function. Pharmacist: Helen Soto 10/23/2017 10:06 PM Calin moellered in this encounter Plan of Treatment +--------+---------+ [...] | | | | | | [place] [address] | | | | | | [phone] | | | | | | | | +--------+---------+ + + + | 05/19/ | Office | Cardiology | Cecilia Mccoy, | | | 2019 | Visit | | MD Alayna SHEPPARD | | | | | | [place] | | | | | | [id number] | | | | | | | | +--------+---------+ + + + documented as of this encounter Procedures + +--------+ + + + | Procedure Name | Priori | Date/Time | Associated Diagnosis | Comments | | | ty | | | | + +--------+ + + + | XR CHEST 2 VIEWS | Routin | 10/26/2017 | | Results for this | | | e | 9:52 AM | | procedure are in the | | | | PDT | | results section. | + +--------+ + + + | EXTERNAL LAB: CBC | Routin | 10/26/2017 | | Results for this | | | e | 5:35 AM | | [...] +--------+ + + + | IRON AND IRON | Routin | 10/25/2017 | | Results for this | | BINDING CAPACITY | e | 2:43 PM | | procedure are in the | | | | PDT | | results section. | + +--------+ + + + | VITAMIN B-12 | Routin | 10/25/2017 | | Results [...] | + +--------+ + + + | EXTERNAL LAB: CBC | Routin | 10/25/2017 | | Results for this | | | e | 10:00 AM | | [...] | + +--------+ + + + | CV VASCULAR | Routin | 10/24/2017 | | Results for this | | PROCEDURE | e | 8:12 PM | | procedure are in the | | | | PDT | | results section. | + +--------+ + + + | CV CARDIAC PROCEDURE | Routin | 10/24/2017 | | Results for this | | | e | 8:09 PM | | procedure are in the | | | | PDT | | results section. | + +--------+ + + + | FL VIDEO SWALLOW W | Routin | 10/24/2017 | | Results for this | | SPEECH | e | 4:50 PM | | [...] XR CHEST 2 VIEWS | Routin | 10/24/2017 | | Results for this | | | e | 11:03 AM | | procedure are in the | | | | PDT | | results section. | + +--------+ + + + | ECHO COMPLETE | Routin | 10/24/2017 | | Results for this | | | e | 7:00 AM | | procedure are in the | | | | PDT | | results section. | + +--------+ + + + | TROPONIN I | Routin | 10/24/2017 | | Results for this | | | e | 5:51 AM | | procedure are in the | | | | PDT | | results section. | + +--------+ + + + | GRAM STAIN, REFLEX | Timed | 10/24/2017 | | Results for this | | SPUTUM CULTURE | | 4:00 AM | | procedure are in the | | | | PDT | | results section. | + +--------+ + + + | EXTERNAL LAB: CBC | Routin | 10/24/2017 | | Results for this | | | e | 1:57 AM | | procedure are in the | | | | PDT | | results section. | + +--------+ + + + | LIPID PANEL | Routin | 10/24/2017 | | Results for this | | | e | 1:57 AM | | procedure are in the | | | | PDT | | results section. | + +--------+ + + + | TROPONIN I | Routin | 10/24/2017 | | Results for this | | | e | 1:57 AM | | procedure are in the | | | | PDT | | results section. | + +--------+ + + + | PROTIME INR | Routin | 10/24/2017 | | Results for this | | | e | 1:57 AM | | procedure are in the | | | | PDT | | results section. | + +--------+ + + + | TSH | Routin | 10/24/2017 | | Results for this | | | e | 1:57 AM | | procedure are in the | | | | PDT | | results section. | + +--------+ + + + | PHOSPHORUS | Routin | 10/24/2017 | | Results for this | | | e | 1:57 AM | | procedure are in the | | | | PDT | | results section. | + +--------+ + + + | MAGNESIUM | Routin | 10/24/2017 | | Results for this | | | e | 1:57 AM | | procedure are in the | | | | PDT | | results section. | + +--------+ + + + | BASIC METABOLIC | Routin | 10/24/2017 | | Results for this | | PANEL | e | 1:57 AM | | procedure are in the | | | | PDT | | results section. | + +--------+ + + + | LACTIC ACID | Routin | 10/23/2017 | | Results for this | | | e | 11:50 PM | | procedure are in the | | | | PDT | | results section. | + +--------+ + + + | TROPONIN I | Routin | 10/23/2017 | | Results for this | | | e | 10:12 PM | | procedure are in the | | | | PDT | | results section. | + +--------+ + + + documented in this encounter Results XR Chest 2 Vws (10/26/2017 9:52 AM PDT) + + | Specimen | + + | | + + + + + | Impressions | Performed At | + + + | 1. There is improved aeration of the left upper lobe. 2. Hazy | | | opacities throughout the lung may reflect some residual acute | | | pneumonitis. Electronically signed by Sharan Reeves MD on | | | 10/26/2017 10:02 AM | | + + + + + + | Narrative | Performed At | + + + | [facility] 1945 72 years Male XR CHEST 2 VIEW FRONTAL AND | | | LATERAL 10/26/2017 9:52 AM INDICATION: Shortness of breath with | | | chest pain COMPARISON: 10/24/2017 TECHNIQUE: [...] Rad Conversion - 10/29/2018 4:21 AM PDT [facility] The[facility] ROSE89 years MaleXR | | CHEST 2 VIEW FRONTAL AND LATERAL10/26/2017 9:52 AM INDICATION: Shortness of breath with | | chest pain COMPARISON: 10/24/2017 TECHNIQUE: Two view chest, PA and lateral views | | FINDINGS: Median sternotomy wires are maintained. The cardiac silhouette is borderline | | enlarged. There is no mediastinal widening or shift. Mild calcification of the aortic | | arch is present. There is improving aeration of the left upper lobe. Some residual | | opacities remain along the lower lobes bilaterally. The pulmonary markings are normal in | | caliber. There is mild degenerative disc disease of the thoracic spine. IMPRESSION: 1. | | There is improved aeration of the left upper lobe.2. Hazy opacities throughout the | | lung may reflect some residual acute pneumonitis. | | | |FINDINGS: Median sternotomy wires are maintained. The cardiac silhouette is borderline enla rged. There is no mediastinal widening or shift. Mild calcification of the aortic arch is pr esent. There is improving aeration of the left upper lobe. Some | |residual opacities remain along the lower lobes bilaterally. The pulmonary markings are nor mal in caliber. There is mild degenerative disc disease of the thoracic spine. | | | |IMPRESSION: | |1. There is improved aeration of the left upper lobe. | |2. Hazy opacities throughout the lung may reflect some residual acute pneumonitis. | | | | | + + External Lab: CBC (10/26/2017 5:35 AM PDT) + + +---- + + + | Component | Value | Ref Range | Performed | Pathologist | | | | | At | Signature | + + +---- + + + | WBC | 5.20 | 3.8 0 - 11.00 | EXTERNAL | | | | | K/u L | LAB | | + + +---- + + + | RED CELL | 3.71 (L) | 4.2 0 - 5.70 | EXTERNAL | | | COUNT | | M/u L | LAB | | + + +---- + + + | Hgb | 9.6 (L) | 13. 2 - 17.0 | EXTERNAL | | | | | g/d L | LAB | | + + +---- + + + | Hematocrit, | 28.4 (L) | 39. 0 - 50.0 % | EXTERNAL | | | POC | | | LAB | | + + +---- + + + | MCV | 76.7 (L) | 80. 0 - 100.0 fl | EXTERNAL | | | | | | LAB | | + + +---- + + + | MCH | 25.9 (L) | 27. 0 - 34.0 pg | EXTERNAL | | | | | | LAB | | + + +---- + + + | MCHC | 33.8 | 32. 0 - 35.5 | EXTERNAL | | | | | g/d L | LAB | | + + +---- + + + | RDW-CV | 57.3 (H) | 37 - 53 fl | EXTERNAL | | | | | | LAB | | + + +---- + + + | Platelet | 132 (L) | 150 - 400 K/uL | EXTERNAL | | | Count | | | LAB | | | Plasma | | | | | + + +---- + + + | MPV | 9.9 | fl | EXTERNAL | | | | | | LAB | | + + +---- + + + | Differentia | AUTOMATED | | EXTERNAL | | | l Type | | | LAB | | + + +---- + + + | % Segmented | 76.04 | % | EXTERNAL | | | | | | LAB | | | Neutrophils | | | | | + + +---- + + + | % | 11.53 | % | EXTERNAL | | | Lymphocytes | | | LAB | | + + +---- + + + | % Monocytes | 6.09 | % | EXTERNAL | | | | | | LAB | | + + +---- + + + | % | 5.65 | % | EXTERNAL | | | Eosinophils | | | LAB | | + + +---- + + + | % Basophils | 0.69 | % | EXTERNAL | | | | | | LAB | | + + +---- + + + | Absolute | 3.95 | 1.9 0 - 7.40 | EXTERNAL | | | Segmented | | K/u L | LAB | | | Neutrophils | | | | | + + +---- + + + | Absolute | 0.60 (L) | 1.0 0 - 3.90 | EXTERNAL | | | Lymphocytes | | K/u L | LAB | | + + +---- + + + | Absolute | 0.32 | 0.0 0 - 0.80 | EXTERNAL | | | Monocytes | | K/u L | LAB | | + + +---- + + + | Absolute | 0.29 | 0.0 0 - 0.50 | EXTERNAL | | | Eosinophils | | K/u L | LAB | | + + +---- + + + | Absolute | 0.04 | 0.0 0 - 0.10 | EXTERNAL | | | Basophils | | K/u L | LAB | | + + +---- + + + | RBC | 2+Comment: | | EXTERNAL | | | Morphology | OVALO2+ANISO1+MICRONORMA | | LAB | | | | L PLT MORPHTesting | | | | | | performed at [facility], [address] | | | | | | [facility], | | | | | | [place] [address] | | | | | |MICRO | | | | | |NORMAL PLT MORPH | | | | | |Testing performed at [facility], [address] [facility], [place] [address] | | | | | | | | | | + + +---- + + + + + | Specimen | + + | Blood specimen | | (specimen) | + + + +---------+ + + | Performing | Address | City/State/Zipcode | Phone Number | | Organization | | | | + +---------+ + + | EXTERNAL LAB | | | | + +---------+ + + Comprehensive Metabolic Panel (10/26/2017 5:35 AM PDT) + + + + + + | Component | Value | Ref Range | Performed | Pathologist | | | | | At | Signature | + + + + + + | Na | 143 | 135 - 145 | EXTERNAL | | | | | mmol/L | LAB | | + + + + + + | K | 3.3 (L) | 3.5 - 4.9 | EXTERNAL | | | | | mmol/L | LAB | | + + + + + + | Cl | 108 | 99 - 109 mmol/L | EXTERNAL | | | | | | LAB | | + + + + + + | CO2 | 26 | 23 - 32 mmol/L | EXTERNAL | | | | | | LAB | | + + + + + + | Anion Gap | 12 | 5 - 20 mmol/L | EXTERNAL | | | | | | LAB | | + + + + + + | Glucose, | 101 (H) | 65 - 99 mg/dL | EXTERNAL | | | Fasting | | | LAB | | + + + + + + | BUN | 12 | 8 - 25 mg/dL | EXTERNAL | | | | | | LAB | | + + + + + + | Creatinine | 1.1 | 0.70 - 1.30 | EXTERNAL | | | | | mg/dL | LAB | | + + + + + + | BUN/Creatin | 11 | | EXTERNAL | | | ine Ratio | | | LAB | | + + + + + + | Calcium | 8.5 | 8.5 - 10.5 | EXTERNAL | | | | | mg/dL | LAB | | + + + + + + | Protein, | 5.5 (L) | 6.3 - 8.2 g/dL | EXTERNAL | | | Total | | | LAB | | + + + + + + | Albumin | 2.5 (L) | 3.3 - 4.8 g/dL | EXTERNAL | | | | | | LAB | | + + + + + + | Globulin | 3.0 | 1.3 - 4.9 g/dL | EXTERNAL | | | | | | LAB | | + + + + + + | A/G Ratio | 0.8 (L) | 1.0 - 2.4 | EXTERNAL | | | | | | LAB | | + + + + + + | Bilirubin | 0.7 | 0.1 - 1.5 mg/dL | EXTERNAL | | | Total | | | LAB | | + + + + + + | ALP, | 99 | 35 - 115 U/L | EXTERNAL | | | External | | | LAB | | + + + + + + | AST | 16 | 10 - 45 U/L | EXTERNAL | | | | | | LAB | | + + + + + + | ALT | 14 | 10 - 65 U/L | EXTERNAL | | | | | | LAB | | + + + + + + | Estimated | >60Comment: GFR <60: | mL/min/1.73m2 | EXTERNAL | | | GFR | CHRONIC KIDNEY DISEASE, | | LAB | | | | IF FOUND OVER A 3 MONTH | | | | | | PERIOD.GFR <15: KIDNEY | | | | | | FAILURE.FOR | | | | | | AMERICANS, MULTIPLY THE | | | | | | CALCULATED GFR BY | | | | | | 1.210.This eGFR is | | | | | | calculated using the | | | | | | MDRD IDMS traceable | | | | | | equation.Testing | | | | | | performed at [facility], [address] | | | | | | [address], | | | | | | [place] [address] | | | | + + + + + + + + | Specimen | + + | Blood specimen | | (specimen) | + + + +---------+ + + | Performing | Address | City/State/Zipcode | Phone Number | | Organization | | | | + +---------+ + + | EXTERNAL LAB | | | | + +---------+ + + Iron and Iron Binding Capacity (10/25/2017 2:43 PM PDT) + + + + + + | Component | Value | Ref Range | Performed | Pathologist | | | | | At | Signature | + + + + + + | Iron | 27 (L) | 45 - 190 ug/dL | EXTERNAL | | | | | | LAB | | + + + + + + | TIBC | 229 (L) | 250 - 450 ug/dL | EXTERNAL | | | | | | LAB | | + + + + + + | Iron | 12 (L)Comment: Testing | 20 - 50 % | EXTERNAL | | | Saturation | performed at [facility], [address] | | LAB | | | | [address], | | | | | | [place] [address] | | | | + + + + + + + + | Specimen | + + | Blood specimen | | (specimen) | + + + +---------+ + + | Performing | Address | City/State/Zipcode | Phone Number | | Organization | | | | + +---------+ + + | EXTERNAL LAB | | | | + +---------+ + + Folate (10/25/2017 2:43 PM PDT) + + + + + + | Component | Value | Ref Range | Performed | Pathologist | | | | | At | Signature | + + + + + + | Folate | 18.6Comment: Testing | ng/mL | EXTERNAL | | | | performed at [facility], [address] | | LAB | | | | [address], | | | | | | [place] [address] | | | | + + + + + + + + | Specimen | + + | Blood specimen | | (specimen) | + + + +---------+ + + | Performing | Address | City/State/Zipcode | Phone Number | | Organization | | | | + +---------+ + + | EXTERNAL LAB | | | | + +---------+ + + Ferritin (10/25/2017 2:43 PM PDT) + + + + + + | Component | Value | Ref Range | Performed | Pathologist | | | | | At | Signature | + + + + + + | Ferritin, | 156Comment: Testing | 11 - 450 ng/mL | EXTERNAL | | | External | performed at [facility], [address] | | LAB | | | | [address], | | | | | | [place] [address] | | | | + + + + + + + + | Specimen | + + | Blood specimen | | (specimen) | + + + +---------+ + + | Performing | Address | City/State/Zipcode | Phone Number | | Organization | | | | + +---------+ + + | EXTERNAL LAB | | | | + +---------+ + + Vitamin B-12 (10/25/2017 2:43 PM PDT) + + + + + + | Component | Value | Ref Range | Performed | Pathologist | | | | | At | Signature | + + + + + + | VITAMIN | 292Comment: Testing | 254 - 1,320 | EXTERNAL | | | B-12 | performed at [facility], [address] | pg/mL | LAB | | | | [address], | | | | | | [place] [address] | | | | + + + + + + + + | Specimen | + + | Blood specimen | | (specimen) | + + + +---------+ + + | Performing | Address | City/State/Zipcode | Phone Number | | Organization | | | | + +---------+ + + | EXTERNAL LAB | | | | + +---------+ + + External Lab: CBC (10/25/2017 10:00 AM PDT) + + +---- + + + | Component | Value | Ref Range | Performed | Pathologist | | | | | At | Signature | + + +---- + + + | WBC | 7.51 | 3.8 0 - 11.00 | EXTERNAL | | | | | K/u L | LAB | | + + +---- + + + | RED CELL | 3.63 (L) | 4.2 0 - 5.70 | EXTERNAL | | | COUNT | | M/u L | LAB | | + + +---- + + + | Hgb | 9.4 (L) | 13. 2 - 17.0 | EXTERNAL | | | | | g/d L | LAB | | + + +---- + + + | Hematocrit, | 27.9 (L) | 39. 0 - 50.0 % | EXTERNAL | | | POC | | | LAB | | + + +---- + + + | MCV | 77.0 (L) | 80. 0 - 100.0 fl | EXTERNAL | | | | | | LAB | | + + +---- + + + | MCH | 26.1 (L) | 27. 0 - 34.0 pg | EXTERNAL | | | | | | LAB | | + + +---- + + + | MCHC | 33.8 | 32. 0 - 35.5 | EXTERNAL | | | | | g/d L | LAB | | + + +---- + + + | RDW-CV | 58.2 (H) | 37 - 53 fl | EXTERNAL | | | | | | LAB | | + + +---- + + + | Platelet | PLATELETS CLUMPED, | 150 - 400 K/uL | EXTERNAL | | | Count | APPEAR ADEQUATE | | LAB | | | Plasma | | | | | + + +---- + + + | Differentia | AUTOMATED | | EXTERNAL | | | l Type | | | LAB | | + + +---- + + + | % Segmented | 82.55 | % | EXTERNAL | | | | | | LAB | | | Neutrophils | | | | | + + +---- + + + | % | 8.04 | % | EXTERNAL | | | Lymphocytes | | | LAB | | + + +---- + + + | % Monocytes | 5.49 | % | EXTERNAL | | | | | | LAB | | + + +---- + + + | % | 3.36 | % | EXTERNAL | | | Eosinophils | | | LAB | | + + +---- + + + | % Basophils | 0.56 | % | EXTERNAL | | | | | | LAB | | + + +---- + + + | Absolute | 6.20 | 1.9 0 - 7.40 | EXTERNAL | | | Segmented | | K/u L | LAB | | | Neutrophils | | | | | + + +---- + + + | Absolute | 0.60 (L) | 1.0 0 - 3.90 | EXTERNAL | | | Lymphocytes | | K/u L | LAB | | + + +---- + + + | Absolute | 0.41 | 0.0 0 - 0.80 | EXTERNAL | | | Monocytes | | K/u L | LAB | | + + +---- + + + | Absolute | 0.25 | 0.0 0 - 0.50 | EXTERNAL | | | Eosinophils | | K/u L | LAB | | + + +---- + + + | Absolute | 0.04 | 0.0 0 - 0.10 | EXTERNAL | | | Basophils | | K/u L | LAB | | + + +---- + + + | RBC | 2+Comment: | | EXTERNAL | | | Morphology | OVALO1+TEARDROP2+ANISONO | | LAB | | | | RMAL PLT MORPHTesting | | | | | | performed at [facility], [facility] [address] | | | | | | [facility], | | | | | | [place] [address] | | | | | |ANISO | | | | | |NORMAL PLT MORPH | | | | | |Testing performed at [facility], [facility] [place] [address] | | | | | | | | | | + + +---- + + + + + | Specimen | + + | Blood specimen | | (specimen) | + + + +---------+ + + | Performing | Address | City/State/Zipcode | Phone Number | | Organization | | | | + +---------+ + + | EXTERNAL LAB | | | | + +---------+ + + Comprehensive Metabolic Panel (10/25/2017 10:00 AM PDT) + + + + + + | Component | Value | Ref Range | Performed | Pathologist | | | | | At | Signature | + + + + + + | Na | 139 | 135 - 145 | EXTERNAL | | | | | mmol/L | LAB | | + + + + + + | K | 3.8 | 3.5 - 4.9 | EXTERNAL | | | | | mmol/L | LAB | | + + + + + + | Cl | 105 | 99 - 109 mmol/L | EXTERNAL | | | | | | LAB | | + + + + + + | CO2 | 24 | 23 - 32 mmol/L | EXTERNAL | | | | | | LAB | | + + + + + + | Anion Gap | 14 | 5 - 20 mmol/L | EXTERNAL | | | | | | LAB | | + + + + + + | Glucose, | 137 (H) | 65 - 99 mg/dL | EXTERNAL | | | Fasting | | | LAB | | + + + + + + | BUN | 15 | 8 - 25 mg/dL | EXTERNAL | | | | | | LAB | | + + + + + + | Creatinine | 1.2 | 0.70 - 1.30 | EXTERNAL | | | | | mg/dL | LAB | | + + + + + + | BUN/Creatin | 13 | | EXTERNAL | | | ine Ratio | | | LAB | | + + + + + + | Calcium | 8.4 (L) | 8.5 - 10.5 | EXTERNAL | | | | | mg/dL | LAB | | + + + + + + | Protein, | 5.5 (L) | 6.3 - 8.2 g/dL | EXTERNAL | | | Total | | | LAB | | + + + + + + | Albumin | 2.4 (L) | 3.3 - 4.8 g/dL | EXTERNAL | | | | | | LAB | | + + + + + + | Globulin | 3.1 | 1.3 - 4.9 g/dL | EXTERNAL | | | | | | LAB | | + + + + + + | A/G Ratio | 0.8 (L) | 1.0 - 2.4 | EXTERNAL | | | | | | LAB | | + + + + + + | Bilirubin | 0.8 | 0.1 - 1.5 mg/dL | EXTERNAL | | | Total | | | LAB | | + + + + + + | ALP, | 87 | 35 - 115 U/L | EXTERNAL | | | External | | | LAB | | + + + + + + | AST | 20 | 10 - 45 U/L | EXTERNAL | | | | | | LAB | | + + + + + + | ALT | 16 | 10 - 65 U/L | EXTERNAL | | | | | | LAB | | + + + + + + | Estimated | 59 (L)Comment: GFR <60: | mL/min/1.73m2 | EXTERNAL | | | GFR | CHRONIC KIDNEY DISEASE, | | LAB | | | | IF FOUND OVER A 3 MONTH | | | | | | PERIOD.GFR <15: KIDNEY | | | | | | FAILURE.FOR | | | | | | AMERICANS, MULTIPLY THE | | | | | | CALCULATED GFR BY | | | | | | 1.210.This eGFR is | | | | | | calculated using the | | | | | | MDRD IDMS traceable | | | | | | equation.Testing | | | | | | performed at [facility], [address] | | | | | [facility], | | | | | | [place] [address] | | | | + + + + + + + + | Specimen | + + | Blood specimen | | (specimen) | + + + +---------+ + + | Performing | Address | City/State/Zipcode | Phone Number | | Organization | | | | + +---------+ + + | EXTERNAL LAB | | | | + +---------+ + + CV VASCULAR PROCEDURE (10/24/2017 8:12 PM PDT) + + | Specimen | + + | | + + + + + | Narrative | Performed At | + + + | This Point of Care (POC) ultrasound image has been reviewed and | | | interpreted by the physician identified as the performing physician in | | | the associated interpretation and report. | | + + + + + | Procedure Note | + + | Steven Rad Conversion - 11/05/2018 3:41 PM PDT This Point of Care (POC) ultrasound | | image has been reviewed andinterpreted by the physician identified as the performing | | physician in theassociated interpretation and report. | | | + + CV CARDIAC PROCEDURE (10/24/2017 8:09 PM PDT) + + | Specimen | + + | | + + + + + | Narrative | Performed At | + + + | | | | | | | DATE OF : 1945. PROCEDURE: 1. Right femoral | | | access with ultrasound guidance. 2. Left heart catheterization. 3. | | | Coronary angiogram. 4. SVG angiogram to the RCA. 5. SVG angiogram to | | | the left circumflex. 6. GRIER to LAD angiogram. INDICATION: | | | This is a 72-year-old male who presented to the hospital because of | | | shortness of breath, pulmonary edema, and elevation of cardiac | | | enzymes. For further details, refer to my consultation note. Given | | | the above findings, left heart catheterization was recommended. | | | The patient had previous history of CABG times 4 in 1995. | | | PROCEDURE NOTE: The patient was brought electively to the heart | | | catheterization lab. Consent was obtained after reviewing risks and | | | benefits. Timeout was done at the bedside. The patient was | | | prepped in the usual sterile manner, received IV fentanyl via | | | independent observer. Right groin was anesthetized with 1 percent | | | lidocaine. Using ultrasound and a micropuncture needle, right | | | femoral access was obtained. A 5-Icelandic sheath was introduced | | | without any difficulty. A 0.035 wire was used and advanced under | | | fluoroscopic guidance into the ascending aorta. A 5-Icelandic JL4 | | | catheter was used and advanced over the wire and placed selectively in | | | the left coronary cusp. Wire was removed. Catheter was flushed. | | | Selectively engaged the left coronary system. Contrast was | | | injected. Multiple views were obtained. Exchange over the wire | | | was done with JR4 catheter that was placed selectively in the right | | | coronary cusp, selectively engaged the right coronary artery, and | | | multiple views were obtained. Attempted to engage the SVG to RCA | | | and the obtuse marginal with the JR4 catheter; however, was | | | unsuccessful. Then JR4 catheter was used to cannulate the left | | | subclavian artery and then a long 0.035 wire was used to exchange with | | | a GRIER catheter that selectively engaged the GRIER graft and multiple | | | views were obtained. Exchange over the wire was done with a | | | 5-Icelandic multipurpose catheter that selectively engaged the right SVG | | | to RCA graft. Multiple views were obtained. Exchange over the wire | | | was done with 5-Icelandic AL1 catheter that selectively engaged the SVG | | | to left circumflex system graft. Multiple views were obtained. | | | Finally, the catheter was removed over the wire. Hemostasis was | | | achieved by TR band. CONTRAST USED: 100 mL. BLOOD LOSS: | | | Less than 10. COMPLICATIONS: None. HEMOSTASIS: By manual | | | pressure. ANGIOGRAPHIC FINDINGS: 1. Left main is large caliber | | | vessel with normal origin. Bifurcates to LAD and left circumflex | | | with mild diffuse disease. 2. LAD is 100 percent proximally occluded. | | | 3. Left circumflex is a small to moderate vessel that is severely | | | calcified, has multiple lesions and diffusely diseased. Distally it | | | is very small and severely calcified. Has 90 percent proximal and | | | subtotal occlusion distal. However again smaller and severely | | | calcified. No competitive flow was seen. 4. RCA has 100 percent | | | ostial occlusion. 5. SVG to RCA is widely patent with mildly diffuse | | | disease. 6. SVG to left circumflex system is diffusely diseased with | | | severe degenerative disease; however, occluded at the insertion site. | | | The jump graft of the 2nd obtuse marginal is occluded. GRIER to | | | LAD is widely patent. CONCLUSION: 1. Severe 3-vessel coronary | | | artery disease. 2. Patent SVG to RCA and GRIER to LAD. 3. Occluded | | | SVG to the left circumflex system, which [...] Further recommendations to follow. Read by CECILIA Carney | Angelika MCCOY MD 10/24/2017 07:56 P | | + + + + + | Procedure Note | + + | Diogo Harris Conversion - 11/05/2018 3:41 PM PDT | | | | | | [...] needle, right femoral access was obtained. A 5-Icelandic sheath | | was introduced without any difficulty. A 0.035 wire was used and advanced | | under fluoroscopic guidance into the ascending aorta. A 5-Icelandic JL4 | | catheter was used and [...] over the wire was done with a 5-Icelandic | | multipurpose catheter that selectively engaged the right SVG to RCA graft. | | Multiple views were obtained. Exchange over the wire was done with | | 5-Icelandic AL1 catheter that selectively engaged the SVG [...] | | | | | + + FL Video Swallow w Speech (10/24/2017 4:50 PM PDT) + + | Specimen | + + | | + + + + + | Narrative | Performed At | + + + | This is a non-reportable procedure without a radiologist report and | | | is used for image storage only | | + + + + + | Procedure Note | + + | Diogo Harris Conversion - 10/29/2018 4:21 AM PDT This is a non-reportable procedure | | without a radiologist report and isused for image storage only | + + CT Chest wo Contrast (10/24/2017 11:22 AM PDT) + + | Specimen | + + | | + + + + + | Impressions | Performed At | + + + | 1. At the very least there is pulmonary vascular congestion, | | | edema-and centrilobular emphysema is superimposed 2. Pulmonary | | | infiltrates are asymmetric and throughout [...] years year-old Male, hemoptysis. TECHNIQUE: CT | | | through the chest. Noncontrast examination. Automatic dose adjustment | | | to minimize patient exposure. PRIOR EXAMINATION: Earlier chest | | | radiograph. FINDINGS: Aromatherapist demonstrates cardiomegaly, sternal | | | wires [...] Rad Conversion - 10/29/2018 4:21 AM PDT HISTORY: 72 years year-old Male, | | hemoptysis. TECHNIQUE: CT through the chest. Noncontrast examination. Automatic dose | | adjustment to minimize patient exposure. PRIOR EXAMINATION: Earlier chest radiograph. | | FINDINGS: Aromatherapist demonstrates cardiomegaly, sternal wires and dense reticular | | interstitial lung disease throughout the left mid chest. Lung windows demonstrate | | bilateral reticular and confluent infiltrates throughout mid lower lung pack. In the | | posterior medial left lung on image 81 series 3 in underlying mass would be difficult to | | exclude, but this is simply a larger multiple similar findings throughout both lungs. | | Inflammatory nodules and/or inflammatory masses are very plausibly superimposed In the | | mid central superior left lung the lung disease is more cystic in appearance, asymmetric | | centrilobular emphysema/COPD and superimposed edema edema Bone windows demonstrate | | degenerative and postprocedural changes, without acute appearing lesion or active | | fracture. The sternotomy is healed. Nonaggressive and degenerative changes not uncommon | | for age. What is seen of the upper abdomen demonstrates fatty liver. Splenomegaly. No | | adenopathy or fluid collection discernible. Large hiatus hernia. Within the chest dense | | coronary calcification, interventional changes, diffuse cardiac megaly and hilar | | vascular congestion symmetrically distributed in midlung pack. Changes post CABG. | | IMPRESSION: 1. At the very least there is pulmonary vascular congestion, edema-and | | centrilobular emphysema is superimposed 2. Pulmonary infiltrates are asymmetric and | | throughout the left hemithorax. This could be due to superimposed infection of the left | | upper lung and there is a small effusion also 3. Lastly, there are inflammatory | | appearing airspace or infiltrative nodules superimposed throughout Will be important to | | repeat this examination when the patient's acute issues are resolved to evaluate for | | underlying lesion/mass | | PM | | | |2. Pulmonary infiltrates are [...] | | | | | + + XR Chest 2 Vws (10/24/2017 11:03 AM PDT) + + | Specimen | + + | | + + + + + | Impressions | Performed At | + + + | 1. Borderline cardiac enlargement, with probable pulmonary edema. | | | Atypical pneumonitis seems less likely. | | + + + + + + | Narrative | Performed At | + + + | HISTORY: Precordial chest pain. Question pneumonia. COMPARISON: | | | 10/23/17. TECHNIQUE: PA and lateral films of the chest. | | | FINDINGS: Median sternotomy. Heart size is upper normal. Pulmonary | | | venous congestion. Bilateral perihilar mixed interstitial and airspace | | | infiltrates again noted, essentially unchanged. No effusions. Subtle | | | thickening of the major and minor fissures. Mild degenerative | | | changes of the spine. Osteopenia. | | + + + + + | Procedure Note | + + | Steven, Rad Conversion - 10/29/2018 4:21 AM PDT HISTORY:Precordial chest pain. Question | | pneumonia. COMPARISON:10/23/17. TECHNIQUE:PA and lateral films of the chest. | | FINDINGS:Median sternotomy. Heart size is upper normal. Pulmonary venous congestion. | | Bilateral perihilar mixed interstitial and airspace infiltrates again noted, essentially | | unchanged. No effusions. Subtle thickening of the major and minor fissures. Mild | | degenerative changes of the spine. Osteopenia. IMPRESSION: 1. Borderline cardiac | | enlargement, with probable pulmonary edema. Atypical pneumonitis seems less likely. | | | | | |FINDINGS: | |Median sternotomy. Heart size is upper normal. Pulmonary venous congestion. Bilateral perih ilar mixed interstitial and airspace infiltrates again noted, essentially unchanged. No effu sions. Subtle thickening of the major and minor fissures. Mild | |degenerative changes of the spine. Osteopenia. | | | |IMPRESSION: | |1. Borderline cardiac enlargement, with probable pulmonary edema. Atypical pneumonitis see ms less likely. | | | | | + + ECHO Complete (10/24/2017 7:00 AM PDT) + + | Specimen | [...] PAVITHRA ROSE Date of : 1945 | | | Performing Physician: Cecilia Mccoy | | | | | | INDICATIONS sob,h/o [...] Aortic Valve: There is mild aortic regurgitation. Mitral | | | Valve: There is trace mitral regurgitation. Mitral Valve: Mild mitral | | | annular calcification present. Tricuspid Valve: The tricuspid valve | | | appears structurally normal. Tricuspid Valve: Trace tricuspid | | | regurgitation present. Tricuspid Valve: There is no evidence of | | | pulmonary hypertension. Pulmonic Valve: The pulmonic valve is normal. | | | Pulmonic Valve: Mild pulmonic regurgitation. Pulmonic Valve: Mild | | | degenerative changes in the aortic and mitral valves. Pericardium: | | | There is no pericardial effusion. Pericardium: No pleural effusion | | | seen. IVC/Hepatic Veins: The inferior vena cava is normal in size and | | | collapses > 50 % with sniff, indicating normal central venous | | | pressures. MEASUREMENTS Ao asc: 4.19 cm Ao | | | sinus: 3.[address] junct: 3.01 cm IVC: 1.42 cm LA Diam: | | | 5.50 cm LA Major: 5.97 cm EDV(Teich): 106.74 ml IVSd: | | | 1.19 cm LVIDd: 4.78 cm LVPWd: 1.21 cm LVOT Diam: 2.25 cm | | | %FS: 26.84 % EF(Teich): 52.32 % ESV(Teich): 50.89 ml IVSs: | | | 1.81 cm LVIDs: 3.50 cm LVPWs: 1.71 cm SV(Teich): 55.85 | | | ml RA Major: 5.04 cm LVEF MOD A4C: 55.16 % SV MOD A4C: | | | 49.58 ml LVEDV MOD A4C: 89.88 ml LVLd A4C: 7.50 cm LVESV MOD | | | A4C: 40.30 ml LVLs A4C: 5.87 cm LAESV(A-L): 76.74 ml LAESV | | | Index (A-L): 41.48 ml/m2 LAAs A2C: 17.05 cm2 LAESV A-L A2C: | | | 48.56 ml LALs A2C: 5.08 cm LAAs A4C: 26.95 cm2 LAESV A-L | | | A4C: 95.07 ml LALs A4C: 6.48 cm Ao Diam: 4.03 cm AV Cusp: | | | 1.91 cm LA Diam: 4.92 cm LA/Ao: 1.22 D-E Excursion: | | | 2.29 cm E-F Desoto: 0.09 m/s AV maxP.18 mmHg AV meanPG: | | | 6.51 mmHg AV Vmax: 1.59 m/s AV Vmean: 1.23 m/s AV VTI: | | | 28.06 cm FRANKY Vmax: 3.26 cm2 FRANKY (VTI): 3.35 cm2 AVAI Vmax: | | | 0.00 cm2/m2 AVAI (VTI): 0.00 cm2/m2 LVOT maxP.86 mmHg | | | LVOT meanP.16 mmHg LVSI Dopp: 50.95 ml/m2 LVSV Dopp: | | | 94.27 ml LVOT Vmax: 1.31 m/s LVOT Vmean: 0.84 m/s LVOT VTI: | | | 23.69 cm MV E Ed: 0.93 m/s E' Lat: 0.12 m/s E' Sept: | | | 0.06 m/s PRend P.85 mmHg PRend Vmax: 1.48 m/s HR: | | | 77.27 BPM PV maxP.37 mmHg PV meanP.56 mmHg PV Vmax: | | | 0.91 m/s PV Vmean: 0.56 m/s PV VTI: 12.48 cm RV S': | | | 0.08 m/s TR maxP.05 mmHg TR Vmax: 3.04 m/s TV A De: | | | 0.00 m/s TV Dec Desoto: 3.93 m/s2 TV Dec Time: 207.73 ms TV E | | | Ed: 0.56 m/s TV E/A Ratio: 69.55 [employer]: CM | | | Authenticated by: Cecilia Youngdayton Report Date/Time: 10-24-2017 13:7:33 | | | | | + + + + + | Procedure Note | + + | Diogo Harris Conversion - 10/29/2018 4:21 AM PDT Patient Name: Raegan ROSE of | | : 1945 Performing Physician: Cecilia | | H[place] INDICATIONS------ | | -----sob,h/o 4 cabg CONCLUSIONS 1. The left ventricle cavity is normal in | | size, mild concentric hypertrophy and normal systolic function EF 55%. Mild inferior | | and inferolateral hypokinetic segments.2. Mild degenerative changes in the aortic and | | mitral valves.3. There is no pericardial effusion. FINDINGS--------ECG rhythm: Atrial | | fibrillation.Study: A 2-dimensional transthoracic echocardiogram with m-mode, spectral | | and color flow Doppler was perfomed.Study: This was a technically adequate study.Left | | Ventricle: Overall left ventricular systolic function is low-normal with, an EF 55 | | %.Left Ventricle: The left ventricle cavity size is normal.Left Ventricle: There is mild | | concentric left ventricular hypertrophy.Right Ventricle: The RV was not well | | visualized.Left Atrium: The left atrium is mildly dilated.Right Atrium: The right atrial | | size is normal.Aortic Valve: The aortic valve is trileaflet.Aortic Valve: The aortic | | valve is mildly calcified.Aortic Valve: There is mild aortic regurgitation.Mitral Valve: | | There is trace mitral regurgitation.Mitral Valve: Mild mitral annular calcification | | present.Tricuspid Valve: The tricuspid valve appears structurally normal.Tricuspid | | Valve: Trace tricuspid regurgitation present.Tricuspid Valve: There is no evidence of | | pulmonary hypertension.Pulmonic Valve: The pulmonic valve is normal.Pulmonic Valve: Mild | | pulmonic regurgitation.Pulmonic Valve: Mild degenerative changes in the aortic and | | mitral valves.Pericardium: There is no pericardial effusion.Pericardium: No pleural | | effusion seen.IVC/Hepatic Veins: The inferior vena cava is normal in size and collapses | | > 50 % with sniff, indicating normal central venous pressures. | | MEASUREMENTS Ao asc: 4.19 cmAo sinus: 3.[address] junct: 3.01 cmIVC: | | 1.42 cmLA Diam: 5.50 cmLA Major: 5.97 cmEDV(Teich): 106.74 mlIVSd: 1.19 | | cmLVIDd: 4.78 cmLVPWd: 1.21 cmLVOT Diam: 2.25 cm%FS: 26.84 %EF(Teich): 52.32 | | %ESV(Teich): 50.89 mlIVSs: 1.81 cmLVIDs: 3.50 cmLVPWs: 1.71 cmSV(Teich): 55.85 | | mlRA Major: 5.04 cmLVEF MOD A4C: 55.16 %SV MOD A4C: 49.58 mlLVEDV MOD A4C: | | 89.88 mlLVLd A4C: 7.50 cmLVESV MOD A4C: 40.30 mlLVLs A4C: 5.87 cmLAESV(A-L): | | 76.74 mlLAESV Index (A-L): 41.48 ml/m2LAAs A2C: 17.05 [id number] A-L A2C: 48.56 | | mlLALs A2C: 5.08 cmLAAs A4C: 26.95 [id number] A-L A4C: 95.07 mlLALs A4C: 6.48 cmAo | | Diam: 4.03 cmAV Cusp: 1.91 cmLA Diam: 4.92 cmLA/Ao: 1.22D-E Excursion: 2.29 | | cmE-F Desoto: 0.09 m/Leigha maxP.18 mmHgAV meanP.51 mmHgAV Vmax: 1.59 m/Leigha | | Vmean: 1.23 m/Leigha VTI: 28.06 cmAVA Vmax: 3.26 cm2AVA (VTI): 3.35 [id number] Vmax: | | 0.00 cm2/m2AVAI (VTI): 0.00 [...] 3.04 m/sTV A Ed: 0.00 m/sTV Dec Desoto: 3.93 m/s2TV | | Dec Time: 207.73 msTV E Ed: 0.56 m/sTV E/A Ratio: 69.55 [employer]: | | CMAuthenticated by: PaulStillman Infirmaryort Date/Time: 10-24-2017 13:7:33 IMPRESSION: 1. | | The left ventricle cavity is normal in size, mild concentric hypertrophy and normal | | systolic function EF 55%. Mild inferior and inferolateral hypokinetic segments.2. Mild | | degenerative changes in the aortic and mitral valves.3. There is no pericardial | | effusion. [...] | |D-E Excursion: 2.29 cm | |E-F Desoto: 0.09 m/s | |AV maxP.18 mmHg | [...] A Ed: 0.00 m/s | |TV Dec Desoto: 3.93 m/s2 | |TV Dec Time: 207.73 ms | |TV E Ed: 0.56 m/s | |TV E/A Ratio: 69.55 | | | |[employer]: CM | |Authenticated by: Cecilia Mccoy | |Report Date/Time: 10-24-2017 13:7:33 | | | |IMPRESSION: | |1. The left ventricle cavity is normal in size, mild concentric hypertrophy and normal sys tolic function EF 55%. Mild inferior and inferolateral hypokinetic segments. | |2. Mild degenerative changes in the aortic and mitral valves. | |3. There is no pericardial effusion. | + + Troponin I (10/24/2017 5:51 AM PDT) + + + + + + | Component | Value | Ref Range | Performed | Pathologist | | | | | At | Signature | + + + + + + | Troponin I, | 1.28 ()Comment: 0.00 | 0.00 - 0.10 | EXTERNAL | | | Qual | to 0.10 CONSISTENT | ng/mL | LAB | | | | WITH NORMAL | | | | | | POPULATION0.11 to 0.60 | | | | | | CONSISTENT WITH | | | | | | INCREASED RISK FOR | | | | | | ADVERSE OUTCOMES> 0.60 | | | | | | CONSISTENT | | | | | | WITH WHO CRITERIA FOR | | | | | | ACUTE [place] CALLED NURSING | | | | | | UNITREAD BACK RESULTS | | | | | | VERIFIEDJESSICA W IN 8RP | | | | | | AT 0658 BY TDTesting | | | | | | performed at [facility] [place];[place], [place] | | | | | | [address] | | | | + + + + + + + + | Specimen | + + | Blood specimen | | (specimen) | + + + +---------+ + + | Performing | Address | City/State/Zipcode | Phone Number | | Organization | | | | + +---------+ + + | EXTERNAL LAB | | | | + +---------+ + + Gram Stain, reflex Sputum Culture (10/24/2017 4:00 AM PDT) + + | Specimen | + + | Body fluid sample | | (specimen) | + + + + + | Narrative | Performed At | + + + | Specimen Description SPUTUM GRAM STAIN | EXTERNAL LAB | | GREATER THAN 10 WBCS/LPF | | | GREATER THAN 10 SEC/LPF | | | 4+ | | | GRAM POSITIVE COCCI | | | 1+ | | | GRAM NEGATIVE RODS | | | 3+ | | | GRAM POSITIVE RODS | | | 2+ | | | YEAST | | | CULTURE SMEAR CONTAINS | | | GREATER THAN 10 SEC/LPF SUGGESTIVE OF POOR QUALITY SPECIMEN. | | | SPECIMEN WILL NOT BE CULTURED OR WILL BE CULTURED BY SPECIAL REQUEST | | | ONLY. PLEASE RECOLLECT IF CLINICALLY INDICATED. SPECIMEN WILL BE | | | HELD 48 HOURS. | | + + + + +---------+ + + | Performing | Address | City/State/Zipcode | Phone Number | | Organization | | | | + +---------+ + + | EXTERNAL LAB | | | | + +---------+ + + Troponin I (10/24/2017 1:57 AM PDT) + + + + + + | Component | Value | Ref Range | Performed | Pathologist | | | | | At | Signature | + + + + + + | Troponin I, | 1.72 ()Comment: 0.00 | 0.00 - 0.10 | EXTERNAL | | | Qual | to 0.10 CONSISTENT | ng/mL | LAB | | | | WITH NORMAL | | | | | | POPULATION0.11 to 0.60 | | | | | | CONSISTENT WITH | | | | | | INCREASED RISK FOR | | | | | | ADVERSE OUTCOMES> 0.60 | | | | | | CONSISTENT | | | | | | WITH WHO CRITERIA FOR | | | | | | ACUTE [place] CALLED NURSING | | | | | | UNITREAD BACK RESULTS | | | | | | REENA Rodríguez IN 8RP | | | | | | AT [address]Testing performed | | | | | | at [facility] [place];[place] [address] | | | | + + + + + + + + | Specimen | + + | Blood specimen | | (specimen) | + + + +---------+ + + | Performing | Address | City/State/Zipcode | Phone Number | | Organization | | | | + +---------+ + + | EXTERNAL LAB | | | | + +---------+ + + Protime INR (10/24/2017 1:57 AM PDT) + + + + + + | Component | Value | Ref Range | Performed | Pathologist | | | | | At | Signature | + + + + + + | INR | 1.2Comment: REFERENCE | | EXTERNAL | | | | RANGE:0.9 - 1.2 | | LAB | | | | NON-ANTICOAGULATED2.0 | | | | | | - 3.0 ALL OTHER | | | | | | THERAPEUTIC | | | | | | INDICATIONS2.5 - 3.5 | | | | | | MECHANICAL HEART VALVES, | | | | | | RECURRENT OR SYSTEMIC | | | | | | EMBOLISMTesting | | | | | | performed at [facility] [place] | [facility];[place], [place] | | | | | | [address] | | | | + + + + + + + + | Specimen | + + | Blood specimen | | (specimen) | + + + +---------+ + + | Performing | Address | City/State/Zipcode | Phone Number | | Organization | | | | + +---------+ + + | EXTERNAL LAB | | | | + +---------+ + + External Lab: ANTHONY (10/24/2017 1:57 AM PDT) + + +---- + + + | Component | Value | Ref Range | Performed | Pathologist | | | | | At | Signature | + + +---- + + + | WBC | 11.05 (H) | 3.8 0 - 11.00 | EXTERNAL | | | | | K/u L | LAB | | + + +---- + + + | RED CELL | 4.56 | 4.2 0 - 5.70 | EXTERNAL | | | COUNT | | M/u L | LAB | | + + +---- + + + | Hgb | 11.5 (L) | 13. 2 - 17.0 | EXTERNAL | | | | | g/d L | LAB | | + + +---- + + + | Hematocrit, | 35.3 (L) | 39. 0 - 50.0 % | EXTERNAL | | | POC | | | LAB | | + + +---- + + + | MCV | 77.5 (L) | 80. 0 - 100.0 fl | EXTERNAL | | | | | | LAB | | + + +---- + + + | MCH | 25.1 (L) | 27. 0 - 34.0 pg | EXTERNAL | | | | | | LAB | | + + +---- + + + | MCHC | 32.4 | 32. 0 - 35.5 | EXTERNAL | | | | | g/d L | LAB | | + + +---- + + + | RDW-CV | 57.3 (H) | 37 - 53 fl | EXTERNAL | | | | | | LAB | | + + +---- + + + | Platelet | 160 | 150 - 400 K/uL | EXTERNAL | | | Count | | | LAB | | | Plasma | | | | | + + +---- + + + | MPV | 10.1 | fl | EXTERNAL | | | | | | LAB | | + + +---- + + + | Differentia | MANUAL | | EXTERNAL | | | l Type | | | LAB | | + + +---- + + + | Segmented | 85 | % | EXTERNAL | | | Neutrophils | | | LAB | | | Manual | | | | | + + +---- + + + | Lymphocytes | 8 | % | EXTERNAL | | | Manual | | | LAB | | + + +---- + + + | Monocytes | 6 | % | EXTERNAL | | | Manual | | | LAB | | + + +---- + + + | Eosinophils | 1 | % | EXTERNAL | | | Manual | | | LAB | | + + +---- + + + | Absolute | 9.40 (H) | 1.9 0 - 7.40 | EXTERNAL | | | Neutrophils | | K/u L | LAB | | + + +---- + + + | Absolute | 0.88 (L) | 1.0 0 - 3.90 | EXTERNAL | | | Lymphocytes | | K/u L | LAB | | + + +---- + + + | Absolute | 0.66 | 0.0 0 - 0.80 | EXTERNAL | | | Monocytes | | K/u L | LAB | | + + +---- + + + | Absolute | 0.11 | 0.0 0 - 0.50 | EXTERNAL | | | Eosinophils | | K/u L | LAB | | + + +---- + + + | Platelet | ADEQUATE | | EXTERNAL | | | Estimate | | | LAB | | + + +---- + + + | RBC | 2+Comment: | | EXTERNAL | | | Morphology | [id number] | | LAB | | | | RMAL PLT MORPHTesting | | | | | | performed at [facility], [address] | | | | | [facility], | | | | | | [place] [address] | | | | | |TEARDROP | | | | | |NORMAL PLT MORPH | | | | | |Testing performed at [facility], [address] [facility], [place] [address] | | | | | | | | | | + + +---- + + + + + | Specimen | + + | Blood specimen | | (specimen) | + + + +---------+ + + | Performing | Address | City/State/Zipcode | Phone Number | | Organization | | | | + +---------+ + + | EXTERNAL LAB | | | | + +---------+ + + TSH (10/24/2017 1:57 AM PDT) + + + + + + | Component | Value | Ref Range | Performed | Pathologist | | | | | At | Signature | + + + + + + | TSH | 4.150Comment: Testing | 0.450 - 5.100 | EXTERNAL | | | | performed at [facility], [address] | uIU/mL | LAB | | | | [address], | | | | | | [place] [address] | | | | + + + + + + + + | Specimen | + + | Blood specimen | | (specimen) | + + + +---------+ + + | Performing | Address | City/State/Zipcode | Phone Number | | Organization | | | | + +---------+ + + | EXTERNAL LAB | | | | + +---------+ + + Phosphorus (10/24/2017 1:57 AM PDT) + + + + + + | Component | Value | Ref Range | Performed | Pathologist | | | | | At | Signature | + + + + + + | PHOSPHORUS | 3.4Comment: Testing | 2.3 - 4.8 mg/dL | EXTERNAL | | | | performed at [facility], [address] | | LAB | | | | [address], | | | | | | [place] [address] | | | | + + + + + + + + | Specimen | + + | Blood specimen | | (specimen) | + + + +---------+ + + | Performing | Address | City/State/Zipcode | Phone Number | | Organization | | | | + +---------+ + + | EXTERNAL LAB | | | | + +---------+ + + Magnesium (10/24/2017 1:57 AM PDT) + + + + + + | Component | Value | Ref Range | Performed | Pathologist | | | | | At | Signature | + + + + + + | Magnesium | 1.8Comment: Testing | 1.7 - 2.4 mg/dL | EXTERNAL | | | | performed at [facility], [address] | | LAB | | | | [address], | | | | | | [place] [address] | | | | + + + + + + + + | Specimen | + + | Blood specimen | | (specimen) | + + + +---------+ + + | Performing | Address | City/State/Zipcode | Phone Number | | Organization | | | | + +---------+ + + | EXTERNAL LAB | | | | + +---------+ + + Lipid Panel (10/24/2017 1:57 AM PDT) + + + + + + | Component | Value | Ref Range | Performed | Pathologist | | | | | At | Signature | + + + + + + | Cholesterol | 103 | mg/dL | EXTERNAL | | | | | | LAB | | + + + + + + | Triglycerid | 116 | mg/dL | EXTERNAL | | | es | | | LAB | | + + + + + + | HDL | 24 (L) | mg/dL | EXTERNAL | | | | | | LAB | | + + + + + + | LDL | 56Comment: Testing | mg/dL | EXTERNAL | | | Cholesterol | performed at [facility], [address] | | LAB | | | , | [address], | | | | | Calculated, | [place] [address] | | | | | External | | | | | + + + + + + + + | Specimen | + + | Blood specimen | | (specimen) | + + + +---------+ + + | Performing | Address | City/State/Zipcode | Phone Number | | Organization | | | | + +---------+ + + | EXTERNAL LAB | | | | + +---------+ + + Basic Metabolic Panel (10/24/2017 1:57 AM PDT) + + + + + + | Component | Value | Ref Range | Performed | Pathologist | | | | | At | Signature | + + + + + + | Na | 138 | 135 - 145 | EXTERNAL | | | | | mmol/L | LAB | | + + + + + + | K | 4.3 | 3.5 - 4.9 | EXTERNAL | | | | | mmol/L | LAB | | + + + + + + | Cl | 104 | 99 - 109 mmol/L | EXTERNAL | | | | | | LAB | | + + + + + + | CO2 | 24 | 23 - 32 mmol/L | EXTERNAL | | | | | | LAB | | + + + + + + | Anion Gap | 14 | 5 - 20 mmol/L | EXTERNAL | | | | | | LAB | | + + + + + + | Glucose, | 75 | 65 - 99 mg/dL | EXTERNAL | | | Fasting | | | LAB | | + + + + + + | BUN | 14 | 8 - 25 mg/dL | EXTERNAL | | | | | | LAB | | + + + + + + | Creatinine | 1.3 | 0.70 - 1.30 | EXTERNAL | | | | | mg/dL | LAB | | + + + + + + | BUN/Creatin | 11 | | EXTERNAL | | | ine Ratio | | | LAB | | + + + + + + | Calcium | 8.6 | 8.5 - 10.5 | EXTERNAL | | | | | mg/dL | LAB | | + + + + + + | Estimated | 54 (L)Comment: GFR <60: | mL/min/1.73m2 | EXTERNAL | | | GFR | CHRONIC KIDNEY DISEASE, | | LAB | | | | IF FOUND OVER A 3 MONTH | | | | | | PERIOD.GFR <15: KIDNEY | | | | | | FAILURE.FOR | | | | | | AMERICANS, MULTIPLY THE | | | | | | CALCULATED GFR BY | | | | | | 1.210.This eGFR is | | | | | | calculated using the | | | | | | MDRD IDMS traceable | | | | | | equation.Testing | | | | | | performed at [facility], [address] | | | | | | [facility], | | | | | | [place] [address] | | | | + + + + + + + + | Specimen | + + | Blood specimen | | (specimen) | + + + +---------+ + + | Performing | Address | City/State/Zipcode | Phone Number | | Organization | | | | + +---------+ + + | EXTERNAL LAB | | | | + +---------+ + + Lactic Acid (10/23/2017 11:50 PM PDT) + + + + + + | Component | Value | Ref Range | Performed | Pathologist | | | | | At | Signature | + + + + + + | Lactate | 1.1Comment: Testing | 0.4 - 2.0 | EXTERNAL | | | | performed at [facility] | mmol/L | LAB | | | | [address];[place] | | | | | | [address] | | | | + + + + + + + + | Specimen | + + | | + + + +---------+ + + | Performing | Address | City/State/Zipcode | Phone Number | | Organization | | | | + +---------+ + + | EXTERNAL LAB | | | | + +---------+ + + Troponin I (10/23/2017 10:12 PM PDT) + + + + + + | Component | Value | Ref Range | Performed | Pathologist | | | | | At | Signature | + + + + + + | Troponin I, | 1.76 ()Comment: 0.00 | 0.00 - 0.10 | EXTERNAL | | | Qual | to 0.10 CONSISTENT | ng/mL | LAB | | | | WITH NORMAL | | | | | | POPULATION0.11 to 0.60 | | | | | | CONSISTENT WITH | | | | | | INCREASED RISK FOR | | | | | | ADVERSE OUTCOMES> 0.60 | | | | | | CONSISTENT | | | | | | WITH WHO CRITERIA FOR | | | | | | ACUTE [place] CALLED TO | | | | | | KIMBERLEE Rodríguez ON 8RP AT 2255 | | | | | | BY CD, READ BACKTesting | | | | | | performed at [facility];[address] | | | | | | [address];[place], [place] | | | | | | [address] | | | | + + + + + + + + | Specimen | + + | Blood specimen | | (specimen) | + + + +---------+ + + | Performing | Address | City/State/Zipcode | Phone Number | | Organization | | | | + +---------+ + + | EXTERNAL LAB | | | | + +---------+ + + documented in this encounter Visit Diagnoses + + | Diagnosis | + + | Thoracic aortic aneurysm without rupture (HCC) Thoracic aneurysm without mention of | | rupture | + + | ASCVD (arteriosclerotic cardiovascular disease) Unspecified cardiovascular disease | + + | Chronic atrial fibrillation Atrial fibrillation | + + | Essential hypertension Unspecified essential hypertension | + + | Precordial pain | + + | Dysphagia, unspecified type | + + documented in this encounter
--- OUTSIDE RECORDS SUMMARY | ~2019-02-20 | XMS | Encounter Summary ---
Demographics + + + | Address | [address] | | | [place] [address] | + + + | Home Phone | | + + + | Preferred Language | Unknown | + + + | Marital Status | | + + + | Faith Affiliation | LUT | + + + [...] Team Providers + +------+ + | Care Appliance Fixer Name | Role | Phone | + +------+ + | Maycol Knutson MD | PCP | | + +------+ + Encounter Details +--------+ + + + + | Date | Type | Department | Care Team | Description | +--------+ + + + + | 10/03/ | Transcribed | | Dictation, Other | Transcribed | | 1999 | | | | | +--------+ + [...] as of this encounter Progress Notes Interface, Credit Advisor In - 03/03/2006 3:[address] [facility] OR [facility] and [place] [address] [place], [place] [address] or October 03, 1998 RICKEY GAGNON MD [facility] DEPT OTOLARYNGOLOGY [address] [facility] [address] RE: German Rose MR#: [id number] Dear Willie: As you know, Mr. Rose underwent a laparoscopic Sudarshan fundoplication on the 30 of September. His procedure was uneventful. He had a 2 cm floppy fundoplication calibrated over a 60-Fr bougie. Postoperatively, he did well in the Post Anesthesia Care Unit, had no problem with his airway. I was able do discharge him Saturday, the , after he tolerated a standard Sudarshan diet. I will see German back in approximately two weeks and let you know how he is doing at that time. By the way, I also owe some thanks to Dr. Zuñiga, who really bent over backwards to get Mr. Rose's motility done so that we could continue as scheduled. Thank you, again, for the opportunity to help care for Mr. Rose. I wish you the best on your October sojourn. Yours sincerely, Rohan Barragan M.D. BCS:x17 cc: Deandra Zuñiga M.D., F.A.C.P., F.A.CJeannette Finish Carpenter, Medicine [facility] [id number] signed by Interface, Credit Advisor In at 03/03/2006 3:11 AM PSTdocume nted in this encounter Plan of Treatment Not on filedocumented as of this encounter Visit Diagnoses Not on filedocumented in this encounter"
--- OUTSIDE RECORDS SUMMARY | ~2019-02-20 | XMS | Encounter Summary ---
Demographics + + + | Address | [address] | | | [place] [address] | + + + | Home Phone | | + + + | Preferred Language | Unknown | + + + | Marital Status | | + + + | Hinduism Affiliation | 1028 | + + + | Race | Unknown | + + + | Ethnic Group | Unknown | + + + Author + + + | Author | [facility] | | | and [place] | + + + | Organization | [facility] | | | [...] [place] | | | | | [address] | | + + + + + Care Team Providers + +------+ + | Care Web Services Professional Name | Role | Phone | + +------+ + | Maycol Knutson MD | PCP | | + +------+ + Encounter Details +--------+ + + + + | Date | Type | Department | Care Team | Description | +--------+ + + + + | 05/16/ | Hospital | [facility] | Conversion | Pain | | 2018 | Encounter | CONVERSION [address] | Transaction, | | | | | [address] | Provider Unknown | | | | | [place], [place] | [phone] | | | | | [address] | | | | | | [phone] | | | +--------+ + + + [...] | | | | | | [place] [address] | | | | | | [phone] | | | | | | | | +--------+---------+ + + + | 05/19/ | Office | Cardiology | Cristian Mccoy, | | | 2019 | Visit | | MD [address] | | | | | | [place] | | | | | | [address] | | | | | | | [...]
--- OUTSIDE RECORDS SUMMARY | ~2019-02-20 | XMS | Encounter Summary ---
Demographics + + + | Address | [address] | | | [place] [address] | + + + | Home Phone [...] Team Providers + +------+ + | Care State Inspector Name | Role | Phone | + +------+ + PCP | Unavailable | + +------+ + Encounter Details +--------+ + + + + | Date | Type | Department | Care Team | Description | +--------+ + + + + | 10/18/ | Results | General Surgery | Rohan Barragan, | | | 1998 | Only | [address] | [address] | | | | | Kimberly Patterson Mailcode: | [address] | | | | | [address] Physician's | [place], [place] | | | | | [address] | [address] | | | | | [place], [place] | [phone] | | | | | [address] | | | | | | [phone] | | | +--------+ + + + [...] | + +--------+ + + + | ESOPHAGRAM | Urgent | 10/18/1998 | | Results for this | | | | 10:33 AM | | procedure are in the | | | | PDT | | results section. | + +--------+ + + + documented in this encounter Results ESOPHAGRAM (10/18/1998 10:33 AM PDT) + + + + + + | Component | Value | Ref Range | Performed | Pathologist | | | | | At | Signature | + + + + + + | ESOPHAGUS, | Radiologist 1: CHITO, | | | | | W/BARIUM | Aurea LYNN | | | | | | PriyankaESOPHAGRAM: | | | | | | 10/18/98. Dictated | | | | | | 10/19/98 FINDINGS: The | | | | | | esophageal motility was | | | | | | normal. The distal | | | | | | most 5 cmof the | | | | | | esophagus is | | | | | | persistently narrowed. | | | | | | The narrowing is | | | | | | smoothwith no mucosal | | | | | | abnormality. The | | | | | | maximum diameter of the | | | | | | narrowingis | | | | | | approximately 5 mm. No | | | | | | other esophageal | | | | | | abnormality was seen. | | | | | | Theright vocal cord | | | | | | appeared to be | | | | | | paralyzed. IMPRESSION: | | | | | | The persistent narrowing | | | | | | of the distal esophagus | | | | | | is thought to be dueto | | | | | | the recent Sudarshan | | | | | | fundoplication. It is | | | | | | thought to be | | | | | | intact.There is apparent | | | | | | paralysis of the right | | | | | | vocal cord. The | | | | | | examinationis otherwise | | | | | | negative. END OF | | | | | | IMPRESSION: | | | | + + + + + + + + | Specimen | + + | | + + + +---------+ + + | Performing | Address | City/State/Zipcode | Phone Number | | Organization | | | | + +---------+ + + | [facility] DEPARTMENT OF | | | | | RADIOLOGY | | | | + +---------+ + + documented in this encounter Visit Diagnoses Not on filedocumented in this encounter"
--- OUTSIDE RECORDS SUMMARY | ~2019-02-20 | XMS | Encounter Summary ---
Demographics + + + | Address | [address] | | | [place] [address] | + + + | Home Phone [...] Team Providers + +------+ + | Care Wall Covering Contractor Name | Role | Phone | + +------+ + PCP | Unavailable | + +------+ + Encounter Details +--------+ + + + + | Date | Type | Department | Care Team | Description | +--------+ + + + + | 05/07/ | [facility] | | Letter, Clinic | Letters | | 2004 | scribed | | | | +--------+ + + [...] as of this encounter Progress Notes Interface, Health Science Specialist In - 10/14/2004 6:15 PM PDT [facility] [address], [place] [address] or Department of Otolaryngology - [address] May 07, 2003 Moisés Quezada M.D. [address] [place] [address] RE: GERMAN ROSE MR #: [id number] Dear Dr. Quezada: Just a brief note to let you know I saw German Rose back for his 5-year followup visit. 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 From this point, I would consider him cured, and we will not see him back here in regular followup. Obviously, I am gratified by this result and pleased by how well he has done. I will certainly see him back here if any problems arise. Thanks again for letting me care for him. Yours sincerely, Dylan Arthur M.D. [facility] / [id number] / [id number] / [id number] / cc: Maycol Luna M.D. [address] [place], [place] [id number] signed by Interface, Health Science Specialist In at 10/14/2004 6:1 5 PM PDTdocumented in this encounter Plan of Treatment Not on filedocumented as of this encounter Visit Diagnoses Not on filedocumented in this encounter"
--- OUTSIDE RECORDS SUMMARY | ~2019-02-20 | XMS | Encounter Summary ---
Demographics + + + | Address | [address] | | | [place] [address] | + + + | Home Phone [...] [place] | | | | | [address] | | + + + + + Care Team Providers + +------+ + | Care Makeup Artist Name | Role | Phone | + +------+ + | Nelson Laird MD | PCP | | + +------+ + Reason for Visit +--------+ + | Reason | Comments | +--------+ + | Other | 03/05 appointment | +--------+ + Encounter Details +--------+ + + + + | Date | Type | Department | Care Team | Description | +--------+ + + + + | 01/12/ | Telephone | [facility] | [place], | Other (03/05 | | 2019 | | PULMONOLOGY [address] | [address], | appointment) | | | | [address] | [address] | | | | | [place], [place] | [place] [address] [place], | | | | | [address] | [place] [address] | | | | | [phone] | [phone] | | | | | | | [...] | | | | | | [address] | | | | | | [address] [address] | | | | | | [place] [address] | | | | | | [phone] | | | | | | | | +--------+---------+ + + + | 05/19/ | Office | Cardiology | Cristian Mccoy, | | | 2020 | Visit | | [address] | | | | | | [place] | | | | | | [address] | | | | | | | | +--------+---------+ + + + documented as of this encounter Visit Diagnoses Not on filedocumented in this encounter"
--- OUTSIDE RECORDS SUMMARY | ~2019-02-20 | XMS | Encounter Summary ---
Demographics + + + | Address | [address] | | | [place] [address] | + + + | Home Phone | | + + + | Preferred Language | Unknown | + + + | Marital Status | | + + + | Mandaen Affiliation | LUT | + + + [...] Team Providers + +------+ + | Care Paint Stockman Name | Role | Phone | + +------+ + | Maycol Knutson MD | PCP | | + +------+ + Encounter Details +--------+ + + + + | Date | Type | Department | Care Team | Description | +--------+ + + + + | 02/17/ | Procedure - | | Documentation, | OP REPORT-TEACHING | | 1997 | | | Teaching Physician | | [...] + + | TEACHING PHYSICIAN | | 02/17/1998 | | | + +--------+ + + + documented in this encounter Visit Diagnoses Not on filedocumented in this encounter"
--- OUTSIDE RECORDS SUMMARY | ~2019-02-20 | XMS | Encounter Summary ---
Demographics + + + | Address | [address] | | | [place] [address] | + + + | Home Phone | | + + + | Preferred Language | Unknown | + + + | Marital Status | | + + + | Taoism Affiliation | LUT | + + + | Race | White | + + + | Ethnic Group | Not or | + + + Author + + + | Author | [facility] | + + + | Organization | [facility] | + + + | Address | Unknown | + + + | Phone | Unavailable | + + + Support + + +---------+ + | Name | Relationship | Address | Phone | + + +---------+ + | Blossom Rose | ECON | Unknown | | + + +---------+ + Care Team Providers + +------+ + | Care Scanning Clerk Name | Role | Phone | + +------+ + PCP | Unavailable | + +------+ + Encounter Details +--------+ + + + + | Date | Type | Department | Care Team | Description | +--------+ + + + + | 02/16/ | Results | Otolaryngology | Dylan Arthur MD | | | 1997 | Only | Head and Neck | | | | | | Surgery Services at | | | | | | [facility] [address] [facility] | | | | | | [address] | | | | | | Mailcode: [address] | | | | | | Physician's [place] | | | | | | [place], [place] | | | | | | [address] | | | | | | [phone] | | | +--------+ + + + [...] | + +--------+ + + + | CHEST, 1 VIEW, | Urgent | 03/03/1998 | | Results for this | | PORTABLE | | 10:20 AM | | procedure are in the | | | | PST | | results section. | + +--------+ + + + | X-RAY CHEST 2 VIEW | Priori | 02/16/1998 | | Results for this | | | ty | 4:35 PM | | procedure are in the | | | | PST | | results section. | + +--------+ + + + documented in this encounter Results CHEST, 1 VIEW, PORTABLE (03/03/1998 10:20 AM PST) + + + + + + | Component | Value | Ref Range | Performed | Pathologist | | | | | At | Signature | + + + + + + | CHEST, 1 | Radiologist 1: ESSENCE, | | | | | ELDA, | HYUN Sigala M.D.PORTABLE | | | | | PORTABLE | CHEST: 03/03/98 at | | | | | | 1020 hours. | | | | | | Dictated: 03/08/98 | | | | | | FINDINGS: Upright AP | | | | | | examination at bedside, | | | | | | to include the left | | | | | | upperabdomen, is | | | | | | compared with previous | | | | | | examination of 12/02/98. | | | | | | ADobbhoff tube | | | | | | extends into the gastric | | | | | | fundus. Wire sutures | | | | | | of thesternum are | | | | | | redemonstrated. There | | | | | | is no gross evidence of | | | | | | activechest disease. | | | | | | The intestinal gas | | | | | | pattern is unremarkable. | | | | | | IMPRESSION: 1. | | | | | | Dobbhoff tube in | | | | | | gastric fundus. 2. No | | | | | | gross evidence of acute | | | | | | chest disease. END | | | | | | OF IMPRESSION: | | | | + + + + + + + + | Specimen | + + | | + + + +---------+ + + | Performing | Address | City/State/Zipcode | Phone Number | | Organization | | | | + +---------+ + + | [facility] DEPARTMENT OF | | | | | RADIOLOGY | | | | + +---------+ + + CHEST 2 VIEW (02/16/1998 4:35 PM PST) + + + + + + | Component | Value | Ref Range | Performed | Pathologist | | | | | At | Signature | + + + + + + | CHEST, 2 | Radiologist 1: JESSICA | | | | | [place] | Priyanka BERRIOSCHEST: | | | | | STEREO | 02/16/98 at 1635 hours. | | | | | | Dictated 02/18/98 | | | | | | COMPARISON: There are no | | | | | | prior studies available | | | | | | for comparison. | | | | | | FINDINGS: There are | | | | | | sternotomy wires in | | | | | | place. Heart size is | | | | | | normal.Mediastinal | | | | | | contours are within | | | | | | normal limits. There is | | | | | | some | | | | | | aorticcalcification. The | | | | | | lungs are clear. | | | | | | There is no pleural | | | | | | effusion. IMPRESSION: | | | | | | Previous sternotomy, | | | | | | otherwise within normal | | | | | | limits. END OF | | | | | [...]
--- OUTSIDE RECORDS SUMMARY | ~2019-02-20 | XMS | Encounter Summary ---
Demographics + + + | Address | [address] | | | [place] [address] | + + + | Home Phone | | + + + | Preferred Language | Unknown | + + + | Marital Status | | + + + | Restorationism Affiliation | 1028 | + + + | Race | Unknown | + + + | Ethnic Group | Unknown | + + + Author + + + | Author | [facility] | | | and [place] | + + + | Organization | [facility] | | [...] [place] | | | | | [address] | | + + + + + Care Team Providers + +------+ + | Care Corrections Specialist Name | Role | Phone | + +------+ + | Maycol Knutson MD | PCP | | + +------+ + Encounter Details +--------+ + + + + | Date | Type | Department | Care Team | Description | +--------+ + + + + | 12/11/ | Hospital | [facility] MEDICAL | Conversion | Multifocal lung | | 2018 | Encounter | [facility] [address] | Transaction, | consolidation (HCC) | | | | [address] | Provider Unknown | | | | | [place], [place] | [phone] | | | | | [address] | | | | | | [phone] | Mary Rodrigez | | | | | | MD Millie [address] | | | | | | [address] | | | | | | [place] [address] | | | | | | [phone] | | | | | | | [...] | | | | | | [place] [address] | | | | | | [phone] | | | | | | | | +--------+---------+ + + + | 05/19/ | Office | Cardiology | Cristian Mccoy, | | | 2019 | Visit | | [address] | | | | | | [place] [facility] | | | | | | [address] | | | | | | | [...] right lower lobe. | | | |Prior Sudarsahn fundoplication. | | | |No acute abnormality [...]
--- OUTSIDE RECORDS SUMMARY | ~2019-02-20 | XMS | Encounter Summary ---
Demographics + + + | Address | [address] | | | [place] [address] | + + + | Home Phone | | + + + | Preferred Language | Unknown | + + + | Marital Status | | + + + | Hoahaoism Affiliation | LUT | + + + | Race | White | + + + | Ethnic Group | Not or | + + + Author + + + | Author | [facility] | + + + | Organization | [facility] | + + + | Address | Unknown | + + + | Phone | Unavailable | + + + Support + + +---------+ + | Name | Relationship | Address | Phone | + + +---------+ + | Blossom Rose | ECON | Unknown | | + + +---------+ + Care Team Providers + +------+ + | Care Cook Specialty Foreign Food Name | Role | Phone | + [...] as of this encounter Progress Notes Interface, Furnace Checker In - 03/11/2006 2:31 AM PSTCLINIC DATE: [...] as possible. The patient will call my service secretary and we will coordinate the surgery around this event. Dylan Arthur M.D. Humanities Instructor, Otolaryngology Head and Neck Surgery KRIS/susanna cc: AGUSTINA FERNANDEZ MD [address] [facility] [address] MAYCOL CALLAHAN MD [address] [facility] [address] NADRE PUGA MD [address] [id number] signed by Interface, Furnace Checker In at 03/11 2:31 AM PSTdocumented in this encounter Plan of Treatment Not on filedocumented as of this encounter Visit Diagnoses Not on filedocumented in this encounter"
--- OUTSIDE RECORDS SUMMARY | ~2019-02-20 | XMS | Encounter Summary ---
Demographics + + + | Address | [address] | | | [place] [address] | + + + | Home Phone | | + + + | Preferred Language | Unknown | + + + | Marital Status | | + + + | Hinduism Affiliation | LUT | + + + [...] Team Providers + +------+ + | Care Assembler Leather Goods Name | Role | Phone | + +------+ + | Maycol Knutson MD | PCP | | + +------+ + Encounter Details +--------+ + + + + | Date | Type | Department | Care Team | Description | +--------+ + + + + | 07/24/ | Office | [facility] INTER[facility] | Note, [...] as of this encounter Progress Notes Interface, Nailer Hand In - 02/05/2006 1:06 AM PSTCLINIC DATE: 07/25/1999 SUBJECTIVE: Mr. Rose is seen back on a walk-in basis because he pulled his trach tube out in the shower, and although he has reinserted it, he is concerned that it may not be in the right place. He did have some bleeding around the time of the removal, and this has settled. OBJECTIVE: HEENT: Today, his nasoendoscopy is done confirming that the tube is in the normal position. There is no evidence of surrounding infection. There is mild tracheitis which is settling. PLAN: I will see him back as previously scheduled. Dylan Arthur M.D. KR[facility] / [id number] / [id number] / [id number] / [id number] [id number] signed by Interface, Nailer Hand In at 02/05/2006 1:06 AM PSTdocume nted in this encounter Plan of Treatment Not on filedocumented as of this encounter Visit Diagnoses Not on filedocumented in this encounter"
--- OUTSIDE RECORDS SUMMARY | ~2019-02-20 | XMS | Encounter Summary ---
Demographics + + + | Address | [address] | | | [place] [address] | + + + | Home Phone | | + + + | Preferred Language | Unknown | + + + | Marital Status | | + + + | Zoroastrianism Affiliation | 1028 | + + + | Race | Unknown | + + + | Ethnic Group | Unknown | + + + Author + + + | Author | [facility] | | | and [place] | + + + | Organization | [facility] | | | and [place] | + + + | Address | Unknown | + + + | Phone | Unavailable | + + + Support + + + + + | Name | Relationship | Address | Phone | + + + + + | Blossom Roes | ECON | [address] | | | | | [place] | | | | | [address] | | + + + + + Care Team Providers + +------+ + | Care Manager Deli Name | Role | Phone | + +------+ + | Maycol Knutson MD | PCP | | + +------+ + Encounter Details +--------+ + + + + | Date | Type | Department | Care Team | Description | +--------+ + + + + | 04/03/ | Hospital | [facility] | Conversion | Pain | | 2018 | Encounter | CONVERSION [address] | Transaction, | | | | | [address] | Provider Unknown | | | | | [place], [place] | [phone] | | | | | [address] | | | | | | [phone] | | | +--------+ + + + [...] | 03/05/ | Office | Pulmonology | [facility], | | | 2018 | Visit | | Mary Pinto, | | | | | | MD [address] | | | | | | [place], | | | | | | [place] [address] | | | | | | [phone] | | | | | | | | +--------+---------+ + + + | 05/19/ | Office | Cardiology | [place], [place], | | | 2020 | Visit | | [address] | | | | | | [place] | | | | | | [address] | | | | | | | | +--------+---------+ + + + documented as of this encounter Procedures + +--------+ + + + | Procedure Name | Priori | Date/Time | Associated Diagnosis | Comments | | | ty | | | | + +--------+ + + + | US HEAD NECK SOFT | Routin | 02/24/2010 | | Results for this | | TISSUE | e | 5:13 AM | | procedure are in the | | | | PST | | results section. | + +--------+ + + + documented in this encounter Results US Head Neck Soft Tissue (02/24/2010 5:13 AM PST) + + | Specimen | [...]
--- OUTSIDE RECORDS SUMMARY | ~2019-02-20 | XMS | Encounter Summary ---
Demographics + + + | Address | [address] | | | [place] [address] | + + + | Home Phone | | + + + | Preferred Language | Unknown | + + + | Marital Status | | + + + | Pentecostalism Affiliation | LUT | + + + | Race | White | + + + | Ethnic Group | Not or | + + + Author + + + | Author | [facility] | + + + | Organization | [facility] | + + + | Address | Unknown | + + + | Phone | Unavailable | + + + Support + + +---------+ + | Name | Relationship | Address | Phone | + + +---------+ + | Blossom Rose | ECON | Unknown | | + + +---------+ + Care Team Providers + +------+ + | Care Art Framing Manager Name | Role | Phone | + +------+ + | Maycol Knutson MD | PCP | | + +------+ + Encounter Details +--------+ + + + + | Date | Type | Department | Care Team | Description | +--------+ + + + + | 05/10/ | Office | [facility] | Note, [...] as of this encounter Progress Notes Interface, Inspector And Tester In - 01/17/2006 5:13 AM PSTCLINIC DATE: 05/10/2000 OTOLARYNGOLOGY HEAD AND NECK SURGERY SUBJECTIVE: Mr. Rose is seen back today in followup with respect to his laryngeal carcinoma and subglottic stenosis. He is doing very well, and from a breathing standpoint, can do all but the most extremes of exertion without difficulty. PHYSICAL EXAMINATION: NECK: Today, his neck was without masses. Flexible fiberoptic laryngoscopy of the nasopharynx, oropharynx, hypopharynx, and larynx was done. There were no abnormalities. He had still mild residual irregularity. The anterior commissure as was seen before and somewhat limited abduction, but otherwise, no recurrence. ASSESSMENT: Laryngeal carcinoma, no evidence of disease. PLAN: I will see him back in 6 months. Dylan Arthur M.D. Kaycee / [id number] / [id number] / [id number] / [id number] signed by Interface, Inspector And Tester In at 01/17/2006 5:13 AM PSTdocume nted in this encounter Plan of Treatment Not on filedocumented as of this encounter Visit Diagnoses Not on filedocumented in this encounter"
--- OUTSIDE RECORDS SUMMARY | ~2019-02-20 | XMS | Encounter Summary ---
Demographics + + + | Address | [address] | | | [place] [address] | + + + | Home Phone [...] Team Providers + +------+ + | Care Mononitrotoluene Operator Name | Role | Phone | + +------+ + PCP | Unavailable | + +------+ + Encounter Details +--------+ + + + + | Date | Type | Department | Care Team | Description | +--------+ + + + + | 08/02/ | Results | Otolaryngology | Dylan Arthur MD | | | 1998 | Only | Head and Neck | | | | | | Surgery Services at | | | | | | [facility] [address] [facility] | | | | | | [address] | | | | | | Mailcode: PV01 | | | | | | [facility] | | | | | | [place], [place] | | | | | | [address] | | | | | | [phone] | | | +--------+ + + + [...] X-RAY CHEST 2 VIEW | Priori | 08/02/1998 | | Results for this | | | ty | 2:43 PM | | procedure are in the | | | | PDT | | results section. | + +--------+ + + + documented in this encounter Results CHEST 2 VIEW (08/02/1998 2:43 PM PDT) + + + + + + | Component | Value | Ref Range | Performed | Pathologist | | | | | At | Signature | + + + + + + | CHEST, 2 | Radiologist 1: LAYLA, | | | | | VIEWS [place] | BECKY GRIFFITHS M.D. TWO | | | | | STEREO | VIEWS OF THE CHEST: | | | | | | 08/02/98 at 1443 hours. | | | | | | Dictated 08/04/98 | | | | | | COMPARISON: Comparison | | | | | | is made with prior two | | | | | | view exam from 02/16/98. | | | | | | FINDINGS: Median | | | | | | sternotomy wires are in | | | | | | place. The configuration | | | | | | ofthe cardiomediastinal | | | | | | silhouette is | | | | | | unchanged. The | | | | | | descending thoracicaorta | | | | | | is mildly tortuous. The | | | | | | costophrenic angles are | | | | | | sharp and thepleural | | | | | | margins are smooth. No | | | | | | obvious developing | | | | | | pulmonary nodule | | | | | | orconsolidative process | | | | | | is identified. | | | | | | Degenerative changes are | | | | | | noted inthe thoracic | | | | | | spine. IMPRESSION: No | | | | | | significant radiographic | | | | | | change since 02/16/98; | | | | | | no evidence ofactive | | | | | | cardiopulmonary disease. | | | | | | END OF IMPRESSION: | | | | + + + + + + + + | Specimen | + + | | + + + +---------+ + + | Performing | Address | City/State/Zipcode | Phone Number | | Organization | | | | + +---------+ + + | [facility] DEPARTMENT OF | | | | | RADIOLOGY | | | | + +---------+ + + documented in this encounter Visit Diagnoses Not on filedocumented in this encounter"
--- OUTSIDE RECORDS SUMMARY | ~2019-02-20 | XMS | Encounter Summary ---
Demographics + + + | Address | [address] | | | [place] [address] | + + + | Home Phone [...] + + + | Author | [facility] | + + + | Organization | [facility] | + + + | Address | Unknown | + + + | Phone | Unavailable | + + + Support + + +---------+ + | Name | Relationship | Address | Phone | + + +---------+ + | Blossom Rose | ECON | Unknown | | + + +---------+ + Care Team Providers + +------+ + | Care Food Service Counter Clerk Name | Role | Phone | [...] as of this encounter Progress Notes Interface, Tool Worker In - 02/01/2006 1:04 AM PSTCLINIC DATE: [...] three months. Dylan Arthur M.D. KRIS / [id number] / [id number] / [id number] / [id number] C: 09/28/1999 lance cc: MAYCOL JETT MD [address] [place] [address] [address] [place] [id number] signed by Interface, Tool Worker In at 02/01/2006 1:04 AM PSTdocumented in this encounter Plan of Treatment Not on filedocumented as of this encounter Visit Diagnoses Not on filedocumented in this encounter"
--- OUTSIDE RECORDS SUMMARY | ~2019-02-20 | XMS | Encounter Summary ---
Demographics + + + | Address | [address] | | | [place] [address] | + + + | Home Phone [...] Team Providers + +------+ + | Care Stroboroma Operator Name | Role | Phone | + +------+ + | Maycol Callahan MD | PCP | | + +------+ + Encounter Details +--------+ + + + + | Date | Type | Department | Care Team | Description | +--------+ + + + + | 09/30/ | Procedure - | | Record, Operation [...] + + | OPERATION RECORD | | 09/30/1998 | | Results for this | | | | | | procedure are in the | | | | | | results section. | + +--------+ + + + documented in this encounter Results OPERATION RECORD (09/30/1998) + + | Transcriptions | + + | Interface, Desktop Architect In - 03/03/2006 3:11 AM PST | | [facility] [facility] | | [place], [place] [address] [place] | | [facility] HealthOPERATION RECORDMed Rec No.: [id number] Date: | | 09/30/1998Name: Zen RoseBEL SURGEON: Rohan Barragan M.D. | | Aleksandar Blount M.D.ASSISTANTS: | | Mana Caicedo M.D.POSTOPERATIVE DIAGNOSIS(ES): 1. Gastroesophageal reflux | | disease. 2. Umbilical hernia.OPERATIONS PERFORMED: | | 1. Laparoscopic Sudarshan fundoplication. | | 2. Open umbilical herniorrhaphy.SPECIMEN(S) REMOVED: | | None.ANESTHESIA: General endotracheal tube anesthesia byDr. | | Slim.ESTIMATED BLOOD LOSS: Minimal.FLUIDS: | | 2700 cc of Crystalloid.COMPLICATIONS: None.DRAINS: | | None.COUNTS: Correct.INDICATIONS: | | Mr. 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 He has also had | | symptoms of gastroesophagealreflux disease for several years. Recently he has | | had evidence ofesophagitis and aspirations per his ENT physician, Dr. Arthur, and he | | wasreferred for possible laparoscopic Sudarshan fundoplication.After assessment by . | | Kelby Zuñiga in the Gastroenterology laboratoryand assessment by us, we also | | recommend laparoscopic Sudarshan fundoplication.He understands the risks benefits of the | | procedures and agreed to proceed.Informed consent was obtained prior to the | | procedure.PROCEDURE: Prior to initiation to our procedure,the | | patient was seen and evaluated by Dr. Arthur for laryngeal dilation andplacement of an | | endotracheal tube. Please see his dictation for thosedetails. After initiation of | | general endotracheal tube anesthesia, thepatient's abdomen was prepped and draped | | in the usual sterile fashion.A skin incision was made just to the left of the patient's | | superior aspectof the umbilicus, after it was infiltrated with 0.25% Marcaine. A | | Veressneedle was inserted through the incision and the abdomen was insufflated to15 mmHg | | pressure without difficulty. A 10 mm trocar was then insertedthrough the skin | | incision. The 50 degree laparoscope was introduced. Nexta second 10 mm trocar was | | introduced on the right side of the patient'sabdomen after infiltration with 0.25% | | Marcaine. Three 5 mm trocars werethen introduced, one in the epigastric area and | | the two others on thepatient's right side of the abdomen after injection with 0.25% | | Marcaine.The areolar tissue overlying the esophagus between the liver and stomachwas | | then divided using Bovie electrocautery. This was continued over theesophagus itself. | | This allowed exposure to the right zane of the diaphragmas well as to the esophagus. | | A window between the right zane and theposterior esophagus was then developed | | using blunt dissection.Next, the short gastrics were taken down along the superior | | third of thegreater curvature of the stomach using the Harmonic device. Once the | | shortgastric vessels were completely taken down, we then proceeded to dissectout the | | left crura of the diaphragm and the posterior aspect of theesophagus, allowing a | | window retroesophageally to be formed. Further bluntdissection retroesophageal was | | performed so that the two crura of thediaphragm were easily opposable. The | | endostitch device was then insertedand used to suture the two right and left crura of | | the diaphragm togetherusing two simple stitches. In this fashion, the diaphragmatic | | hiatus wasreapproximated.Next, a #56 Scottish bougie was passed by the anesthesiologist | | through theesophagus and into the stomach with direct visualization performed by | | us.The gastroesophageal junction was straightened in order to allow easypassage | | of the bougie. Next, the gastric fundus was pulledretroesophageally in | | order to perform the wrap. The wrap was noted to beappropriately loose. The | | endostitch device was then used and two simplestitches were used for the | | fundoplication. The stitches werefull-thickness through the stomach and | | partial-thickness through theesophagus and then again full-thickness through | | the stomach. Uponcompletion of the fundoplication, the wrap was noted to be | | adequately looseagain. The wrap encompassed the 2 cm above the gastroesophageal | | junction.The abdomen was then re-evaluated and adequate hemostasis was noted. | | Thebougie was removed without difficulty. Additionally the nasogastric tubewas also | | removed without difficulty simultaneously. The trocars were thenremoved individually | | under direct visualization and the pneumoperitoneumwas completely emptied from the | | abdomen.We then focused our attention on the umbilical hernia. | | Aninfraumbilical semicircular incision was made and carried down to thefascial | | layer. The umbilicus was then from the fascia, revealingan approximately 1 cm | | umbilical defect. This was reapproximated using threeinterrupted sutures with #0 | | Ethibond suture. The umbilicus was then tackeddown to the fascia with #3-0 Vicryl | | suture. The skin incision wasreapproximated in a running subcuticular fashion | | using #4-0 Vicryl suture.The two 10 mm trocar sites had the fascia reapproximated with | | #0 Ethibondsuture. The skin incisions were all closed in a running | | subcuticularfashion using #4-0 Vicryl suture. Steri-Strips and sterile dressings | | wereapplied.The patient tolerated the procedure well , was extubated in the | | OperatingRoom and was transported to the Postanesthesia Care Unit in | | stablecondition. Rohan Barragan M.D. | | Aleksandar Blount M.D.JOSE L/Shereen: 09/30/1998T: 10/13/1998 12:21 | | [id number]: MAYCOL CALLAHAN MD [address] [place] [address] [address] [place] [address] | | Priyanka Guadarrama M.D., F.A.C.P., F.A.C.G. | |greater curvature of the stomach using the Harmonic device. Once the short | |gastric vessels were completely taken down, we then proceeded to dissect | |out the left crura of the diaphragm and the posterior aspect of the | |esophagus, allowing a window retroesophageally to be formed. Further blunt | |dissection retroesophageal was performed so that the two crura of the | |diaphragm were easily opposable. The endostitch device was then inserted | |and used to suture the two right and left crura of the diaphragm together | |using two simple stitches. In this fashion, the diaphragmatic hiatus was | |reapproximated. | | | |Next, a #56 Scottish bougie was passed by the anesthesiologist through the | |esophagus and into the stomach with direct visualization performed by us. | |The gastroesophageal junction was straightened in order to allow easy | |passage of the bougie. Next, the gastric fundus was pulled | |retroesophageally in order to perform the wrap. The wrap was noted to be | |appropriately loose. The endostitch device was then used and two simple | |stitches were used for the fundoplication. The stitches were | |full-thickness through the stomach and partial-thickness through the | |esophagus and then again full-thickness through the stomach. Upon | |completion of the fundoplication, the wrap was noted to be adequately loose | |again. The wrap encompassed the 2 cm above the gastroesophageal junction. | | | | | |The abdomen was then re-evaluated and adequate hemostasis was noted. The | |bougie was removed without difficulty. Additionally the nasogastric tube | |was also removed without difficulty simultaneously. The trocars were then | |removed individually under direct visualization and the pneumoperitoneum | |was completely emptied from the abdomen. | | | |We then focused our attention on the umbilical hernia. An | |infraumbilical semicircular incision was made and carried down to the | |fascial layer. The umbilicus was then from the fascia, revealing | |an approximately 1 cm umbilical defect. This was reapproximated using three | |interrupted sutures with #0 Ethibond suture. The umbilicus was then tacked | |down to the fascia with #3-0 Vicryl suture. The skin incision was | |reapproximated in a running subcuticular fashion using #4-0 Vicryl suture. | |The two 10 mm trocar sites had the fascia reapproximated with #0 Ethibond | |suture. The skin incisions were all closed in a running subcuticular | |fashion using #4-0 Vicryl suture. Steri-Strips and sterile dressings were | |applied. | | | | | | | | | | | | | | | | | |The patient tolerated the procedure well , was extubated in the Operating | |Room and was transported to the Postanesthesia Care Unit in stable | |condition. | | | | | | Rohan Barragan M.D. | | | | | | Aleksandar Blount M.D. | | | |DN/ljm | | | | P | |[id number] | | | |cc: MAYCOL CALLAHAN MD | | [address] | | [place] [address] | | | | | | Dylan Arthur M.D. | | | | | | M. Kelby Zuñiga M.D., F.A.C.P., F.A.C.G. | + + documented in this encounter Visit Diagnoses Not on filedocumented in this encounter"
--- OUTSIDE RECORDS SUMMARY | ~2019-02-20 | XMS | Encounter Summary ---
Demographics + + + | Address | [address] | | | [place] [address] | + + + | Home Phone [...] Providers + +------+ + | Care Sales Property Manager Name | Role | Phone | + +------+ + | Maycol Callahan MD | PCP | | + +------+ + Encounter Details +--------+ + + + + | Date | Type | Department | Care Team | Description | +--------+ + + + + | /18/ | Discharge | | Summary, Discharge | D/C Summary ODDS | | 1999 | Summary-Tra | | | | | [...] as of this encounter Discharge Summaries Interface, Lace Inspector In - 03/03/2006 3:[address] [address] [facility] MEDICAL SUMMARY OF HOSPITALIZATION Med Rec No: [id number] Admission Date: 09/30/1998 Name: German Rose Discharge Date: 10/02/1998 STAFF PHYSICIAN: Rohan Barragan M.D. Dylan Arthur M.D. PRINCIPAL FINAL DIAGNOSIS: Gastroesophageal reflux disease (GERD). ADDITIONAL DIAGNOSES: 1. Vocal cord cancer, status post resection. 2. Persistent vocal cord injury. 3. Umbilical hernia. PRINCIPAL PROCEDURE: Laparoscopic Sudarshan fundoplication. ADDITIONAL PROCEDURES: 1. Umbilical hernia repair. 2. Laryngeal dilatation. 3. Nutrition consultation. REASON FOR ADMISSION: Mr. Rose is a 53-year-old white male with history of vocal cord carcinoma that was resected late in [address] Arthur here at [facility]. The patient presents with gastroesophageal reflux disease and recurrent vocal cord injury secondary to this condition. The patient was referred to Dr. Rohan Barragan for a laparoscopic Sudarshan fundoplication or Toupet fundoplication to relieve his symptoms and his vocal cord injury. The patient decided to proceed with the operation and presented for the above procedure. Given that he does have persistent vocal cord injury, Dr. Arthur is electing to do a laryngeal dilatation at the same time as the Blue Surgery procedure. The patient was admitted on 09/30/98 for above planned procedure. HOSPITAL COURSE: The patient was admitted and taken to the Operating Room on 09/30/98. The Otolaryngology Service first performed a laryngeal dilatation, which the patient tolerated well. The patient received Decadron 10 mg I.V. perioperatively to help with inflammation and edema. After this, the Blue Surgery Team performed a laparoscopic Sudarshan fundoplication with no apparent complications. Under the same anesthetic, the patient's umbilical hernia repair was also completed. The patient was extubated easily and did not require reintubation. He was taken to the Post Anesthesia Care Unit, and after a brief time there was transferred to [address] [place] [address], his peng of discharge. He tolerated the operation well. On postoperative day #1 the patient felt well with no complaints. He had been started on clear liquids the following night and had tolerated these well. His umbilical hernia repair was causing him no problems. He was advanced to a post Sudarshan diet, and Nutrition came to educate him on his diet. He tolerated this well. The following morning, postoperative day #2, the patient was in great spirits and had no complaints. He had no nausea or vomiting, expressed a good understanding of his post Sudarshan diet, and was anxious to go home. He was seen by Dr. Arthur, who prescribed Augmentin x 10 days and who felt comfortable with the patient's discharge. At the time of discharge the patient's pain was controlled, he was tolerating a post Sudarshan diet, he was voiding, and he was anxious to leave. He was discharged to home later that day. CONDITION ON DISCHARGE: Good. DISCHARGE MEDICATION(S): All medications to be taken in elixir form or crushed pill form. 1. Augmentin elixir 875 mg p.o. b.i.d. x 10 days. 2. Oxycodone elixir 5-15 mg p.o. q. 3 hours p.r.n. pain. 3. Colace elixir 100 mg p.o. b.i.d. 4. Norvasc. 5. Lipitor. Note: His Norvasc and Lipitor pills must be crushed; the patient was told this and expressed understanding. DISCHARGE INSTRUCTION(S): 1. Activity: No heavy lifting x six weeks. 2. Diet: Post Sudarshan fundoplication diet. 3. Follow-up: (1) Follow-up with Dr. Barragan in [facility] in two weeks. (2) Follow-up with Dr. Arthur in [facility]ology [facility] in November. Mana Caicedo M.D. Rohan Barragan M.D. Dylan Arthur M.D. [facility]/ree P cc: MAYCOL CALLAHAN MD [address] [place] [id number] signed by Interface, Lace Inspector In at 03/03/2006 3:11 AM PSTdocumented in this encounter Plan of Treatment Not on filedocumented as of this encounter Visit Diagnoses Not on filedocumented in this encounter"
--- OUTSIDE RECORDS SUMMARY | ~2019-02-20 | XMS | Clinical Summary ---
Demographics + + + | Address | [address] | | | [place] [address] | + + + | Home Phone | | + + + | Preferred Language | Unknown | + + + | Marital Status | | + + + | Mu-Ism Affiliation | 1028 | + + + | Race | Unknown | + + + | Ethnic Group | Unknown | + + + Author + + + | Author | [facility] (Historical as of | | | 11-01-18) | + + + | Organization | [facility] (Historical as of | | | 11-01-18) | + + + | Address | Unknown | + + + | Phone | Unavailable | + + + Support + + + + + | Name | Relationship | Address | Phone | + + + + + | Blossom Rose | ECON | [address] | | | | | [place] | | | | | [address] | | + + + + + Care Team Providers + +------+ + | Care Obiee Consultant Name | Role | Phone | + +------+ + | Nelson Laird MD | PP | | + +------+ + Allergies + [...] + + + + | Diltiazem | Edema | Medium | 09/14/19 | | | | | | 15 | | + + + + + + | Gabapentin | Other (See Comments) | Medium | 09/14/19 | SADDLE MAKER | | | | | 15 | [...] (See Comments) | Medium | 09/14/19 | cody'alyssa | | | | | 15 | | + + + + + + Current Medications + + + +---------+------+------+-------+ | Prescription | Sig. | Disp. | Refills | Star | End | Statu | | | | | | t | Date | s | | | | | | Date | | | + + + +---------+------+------+-------+ | acyclovir | Take 400 mg by mouth | | | | | Activ | | (ZOVIRAX) 400 MG | 5 (five) times | | | | | e | | tablet | daily. PRN | | | | | | + + + +---------+------+------+-------+ | | Inhale 1 puff into | | | | | Activ | | fluticasone-salmeter | the lungs 2 (two) | | | | | e | | ol (ADVAIR) 500-50 | times daily. | | | | | | | MCG/DOSE diskus | | | | | | | | inhaler | | | | | | | + + + +---------+------+------+-------+ | digoxin (LANOXIN) | Take 125 mcg by | | | | | Activ | | 0.25 MG tablet | mouth daily. | | | | | e | + + + +---------+------+------+-------+ | ferrous sulfate, | Take 65 mg of iron | | | | | Activ | | 65 FE, 325 (65 FE) | by mouth daily with | | | | | e | | MG tablet | breakfast. | | | | | | + + + +---------+------+------+-------+ | tamsulosin | Take 0.4 mg by mouth | | | | | Activ | | (FLOMAX) 0.4 MG | After dinner. | | | | | e | | capsule | | | | | | | + + + +---------+------+------+-------+ | folic acid | Take 1 mg by mouth | | | | | Activ | | (FOLVITE) 1 MG | daily. | | | | | e | | tablet | | | | | | | + + + +---------+------+------+-------+ | furosemide (LASIX) | Take 20 mg by mouth | | | | | Activ | | 40 MG tablet | daily. | | | | | e | + + + +---------+------+------+-------+ | cyanocobalamin | Take 1,000 mcg by | | | | | Activ | | (VITAMIN B-12) 1000 | mouth daily. | | | | | e | | MCG tablet | | | | | | | + + + +---------+------+------+-------+ | levothyroxine | Take 75 mcg by mouth | | | | | Activ | | (SYNTHROID) 75 MCG | every morning | | | | | e | | tablet | before breakfast. | | | | | | + + + +---------+------+------+-------+ | loratadine | Take 10 mg by mouth | | | | | Activ | | (CLARITIN) 10 MG | daily. | | | | | e | | tablet | | | | | | | + + + +---------+------+------+-------+ | | Take 1 tablet by | | | | | Activ | | oxyCODONE-acetaminop | mouth every 4 (four) | | | | | e | | hen (PERCOCET) 5-325 | hours as needed for | | | | | | | MG per tablet | Pain. | | | | | | + + + +---------+------+------+-------+ | potassium chloride | Take 10 mEq by mouth | | | | | Activ | | (K-DUR) 10 MEQ | 2 (two) times daily | | | | | e | | tablet | with meals. | | | | | | + + + +---------+------+------+-------+ | Albuterol Sulfate | Inhale into the | | | | | Activ | | 108 (90 BASE) | lungs. | | | | | e | | MCG/ACT AEPB | | | | | | | + + + +---------+------+------+-------+ | cholecalciferol | Take 1,000 Units by | | | | | Activ | | (VITAMIN D-3) 1000 | mouth daily. | | | | | e | | UNITS tablet | | | | | | | + + + +---------+------+------+-------+ | sertraline | Take 100 mg by mouth | | | | | Activ | | (ZOLOFT) 100 MG | daily. | | | | | e | | tablet | | | | | | | + + + +---------+------+------+-------+ | guaiFENesin | Take 600 mg by mouth | | | | | Activ | | (MUCINEX) 600 MG 12 | 2 (two) times | | | | | e | | hr tablet | daily. PRN | | | | | | + + + +---------+------+------+-------+ | | Take 1 tablet by | | | | | Activ | | HYDROcodone-acetamin | mouth as needed for | | | | | e | | ophen (NORCO) | Pain. | | | | | | | 7.5-325 MG per | | | | | | | | tablet | | | | | | | + + + +---------+------+------+-------+ | diclofenac | Apply 2 g topically | | | | | Activ | | (VOLTAREN) 1 % | 4 (four) times | | | | | e | | | daily. PRN | | | | | | + + + +---------+------+------+-------+ | mupirocin | Apply topically 3 | 22 g | 2 | 04/2 | | Activ | | (BACTROBAN) 2 % | (three) times daily. | | | 6/20 | | e | | ointment | | | | 16 | | | + + + +---------+------+------+-------+ | losartan (COZAAR) | Take 50 mg by mouth | | | | | Activ | | 50 MG tablet | daily. | | | | | e | + + + +---------+------+------+-------+ | fluticasone | one spray in each | | | /1 | | Activ | | (FLONASE) 50 MCG/ACT | nostril daily as | | | 4/20 | | e | | nasal | needed | | | 12 | | | + + + +---------+------+------+-------+ | ofloxacin | | | | 04/0 | | Activ | | (OCUFLOX) 0.3 % | | | | 20 | | e | | ophthalmic solution | | | | 18 | | | + + + +---------+------+------+-------+ | trolamine | Apply topically as | | | | | Activ | | salicylate | needed. | | | | | e | | (ASPERCREME) 10 % | | | | | | | | cream | | | | | | | + + + +---------+------+------+-------+ | Krill Oil 500 MG | Take 1 tablet by | | | | | Activ | | CAPS | mouth daily. | | | | | e | + + + +---------+------+------+-------+ | bismuth | Take 262 mg by mouth | | | | | Activ | | subsalicylate (PEPTO | 4 (four) times | | | | | e | | BISMOL) 262 MG | daily before meals | | | | | | | chewable tablet | and nightly. | | | | | | + + + +---------+------+------+-------+ | | Apply to eye as | | | | | Activ | | bacitracin-polymyxin | needed. | | | | | e | | b (POLYSPORIN) | | | | | | | | ophthalmic ointment | | | | | | | + + + +---------+------+------+-------+ | | Take 1 tablet by | | | | | Activ | | [id number]-CGOIIGNBC-YZ | mouth daily. | | | | | e | | NC PO | | | | | | | + + + +---------+------+------+-------+ | alendronate | Take 70 mg by mouth | | | | | Activ | | (FOSAMAX) 70 MG | every 7 days. Take | | | | | e | | tablet | in the morning [...] | min. | | | | | | + + + +---------+------+------+-------+ | azaTHIOprine | Take 150 mg by mouth | | | | | Activ | | (IMURAN) 50 MG | daily. | | | | | e | | tablet | | | | | | | + + + +---------+------+------+-------+ | famotidine | Take 40 mg by mouth | | | | | Activ | | (PEPCID) 40 MG | daily. | | | | | e | | tablet | | | | | | | + + + +---------+------+------+-------+ | mupirocin | 1 g by Nasal route | | | | | Activ | | (BACTROBAN) 2 % | as needed. Use pea | | | | | e | | nasal ointment | sized amount [...] + + +---------+------+------+-------+ | predniSONE | Take 4 tablets by | 30 | | 08/1 | | Activ | | (DELTASONE) 2.5 MG | mouth daily. Takes | tablet | | 20 | | e | | tabletIndications: | 7.5 mg daily | | | 18 | | | | Patient takes 10mg | | | | | | | | daily | | | | | | | + + + +---------+------+------+-------+ | | Take 3 mLs by | 360 mL | 0 | 08/1 | | Activ | | ipratropium-albutero | nebulization every 6 | | | 1/20 | | e | | l (DUO-NEB) 0.5-2.5 | (six) hours as | | | 18 | | | | mg/3mL | needed. | | | | | | + + + +---------+------+------+-------+ | levocetirizine | Take 5 mg by mouth | | | | | Activ | | (XYZAL) 5 MG tablet | as needed. | | | | | e | + + + +---------+------+------+-------+ | rivaroxaban | Take 1 tablet by | 90 | 2 | 01/0 | | Activ | | (XARELTO) 10 mg | mouth daily. | tablet | | / | | e | | tablet | | | | 19 | | | + + + +---------+------+------+-------+ | atorvastatin | TAKE 1 TABLET BY | 90 | 3 | 08/0 | 08/0 | Activ | | (LIPITOR) 40 MG | MOUTH NIGHTLY | tablet | | 8/20 | 7/20 | e | | tablet | | | | 19 | 20 | | + + + +---------+------+------+-------+ Active Problems + + + | Problem | Noted Date | + + + | Stable angina (HCC) | 12/04/2017 | + + + | COPD, moderate (HCC) | 11/28/2017 | + + + | Personal history of tobacco use, presenting hazards to health | 11/28/2017 | + + + | Rheumatoid arthritis (HCC) | 11/28/2017 | + + + | Moderate protein-calorie malnutrition (HCC) | 10/24/2017 | + + + | Severe protein-calorie malnutrition (HCC) | 10/24/2017 | + + + | Dysphagia | 10/24/2017 | + + + | Multifocal lung consolidation (HCC) | 10/23/2017 | + + + | Chronic bronchitis (HCC) | 10/23/2017 | + + + | Chronic maxillary sinusitis | 10/23/2017 | + + + | Obstructive sleep apnea | 10/23/2017 | + + + | Peptic ulcer disease | 10/23/2017 | + + + | Aortic aneurysm (HCC) | 10/07/2017 | + + + | 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 | 10/07/2017 | | stable angina pectoris (HCC) | | + + + | Chronic atrial fibrillation (HCC) | 10/07/2017 | + + + | Cancer of vocal cord (HCC) | 10/07/2017 | + + + + + | Overview: Overview: | | Treated with surgery and radiation | + + + + + | Essential hypertension | 10/07/2017 | + + + Resolved Problems + + + + | Problem | Noted | Resolved | | | Date | Date | + + + + | Aspiration pneumonia (HCC) | 10/25/19 | | | | 18 | 8 | + + + + | Precordial pain | 10/24/19 | | | | 18 | 8 | + + + + | Hemoptysis | 10/24/19 | | | | 18 | 8 | + + + + | NSTEMI (non-ST elevated myocardial infarction) (HCC) | 10/24/19 | | | | 18 | 8 | + + + + Family History + + +------+ + | Medical History | Relation | Name | Comments | + + +------+ + | Hypertension | Father | | | + + +------+ + | Cancer | Mother | | breast cancer | + + +------+ + + +------+--------+ + | Relation | Name | Status | Comments | + +------+--------+ + | Father | | | | + +------+--------+ + | Mother | | | | + +------+--------+ + Social History + +-------+ +--------+ + | Tobacco Use | Types | Packs/Day | Years | Date | | | | | Used | | + +-------+ +--------+ + | Former Smoker | | 1 | | Quit: 11/29/1995 | + +-------+ +--------+ + + +---+---+---+ | Smokeless Tobacco: [...] + + + | Blood Pressure | 114/56 | 06/09/2018 2:43 PM PDT | + + + + | Pulse | 58 | 06/09/2018 2:43 PM PDT | + + + + | Temperature | 36.7 C (98 F) | 06/09/2018 1:57 PM PDT | + + + + | Respiratory Rate | 14 | 01/30/2018 10:46 AM PST | + + + + | Oxygen Saturation | 99% | 06/09/2018 2:43 PM PDT | + + + + | Inhaled Oxygen | - | - | | Concentration | | | + + + + | Weight | 72.9 kg (160 lb 12.8 | 06/09/2018 2:43 PM PDT | | | oz) | | + + + + | Height | 170.2 cm (5' 7") | 06/09/2018 2:43 PM PDT | + + + + | Body Mass Index | 25.18 | 06/09/2018 2:43 PM PDT | + + + + Plan of Treatment + + + + + | Health Maintenance | Due Date | Last Done | Comments | + + + + + | Vaccine: | | | | | Dtap/Tdap/Td (1 - | 3 | | | | Tdap) | | | | + + + + + | Colon Cancer | | | | | Screening | 4 | | | | (Colonoscopy) | | | | + + + + + | Vaccine: Zoster (1 | | | | | of 2) | 4 | | | + + + + + | Vaccine: | | | | | Pneumococcal 65+ | 9 | | | | High/Highest Risk (1 | | | | | of 2 - PCV13) | | | | + + + + + | Vaccine: Influenza | | | | | (#1) | 9 | | | + + + + + Results Not on filefrom Last 3 Months Insurance + +--------+ +------+-------+ + | Payer | Benefi | Subscriber | Type | Phone | Address | | | t Plan | ID | | | | | | / | | | | | | | Group | | | | | + +--------+ +------+-------+ + | MEDICARE | MEDICA | [id number] | | | [address] | | | [place] | | | | [place] [phone] | | | IP-OP | | | | | + +--------+ +------+-------+ + | [facility] | [place] | [id number] | | | | | | | | | | | | | HEALTH | | | | | | | CARE - | | | | | | | AARP | | | | | + +--------+ +------+-------+ + + +--------+ +--------+ + + | Guarantor Name | Accoun | Relation to | Date | Phone | Billing Address | | | t Type | Patient | of | | | | | | | | | | + +--------+ +--------+ + + | GERMAN ROSE | Person | Self [birth year] Home: | [address] | | | [place] | | 1945 | [phone] | [place] | | | [place] | | [phone] | [phone] | + +--------+ +--------+ + +
--- OUTSIDE RECORDS SUMMARY | ~2019-02-20 | XMS | Encounter Summary ---
Demographics + + + | Address | [address] | | | [place] [address] | + + + | Home Phone | | + + + | Preferred Language | Unknown | + + + | Marital Status | | + + + | Catholic Affiliation | LUT | + + + | Race | White | + + + | Ethnic Group | Not or | + + + Author + + + | Author | [facility] | + + + | Organization | [facility] | + + + | Address | Unknown | + + + | Phone | Unavailable | + + + Support + + +---------+ + | Name | Relationship | Address | Phone | + + +---------+ + | Blossom Rose | ECON | Unknown | | + + +---------+ + Care Team Providers + +------+ + | Care Apprentice Funeral Director Name | Role | Phone | + +------+ + | Maycol Callahan MD | PCP | | + +------+ + Encounter Details +--------+ + + + + | Date | Type | Department | Care Team | Description | +--------+ + + + + | 04/22/ | Office | [facility] | Note, [...] as of this encounter Progress Notes Interface, Respiratory Therapy Instructor In - 03/16/2006 3:04 AM PSTCLINIC DATE: 04/22/1998 [facility]IC SUBJECTIVE: Mr. Rose is seen back in follow up with respect to his right true vocal cord carcinoma. He is ready to start his radiation. I talked with Dr. Quezada today about the specifics of this. He still has mild postoperative dyspnea, but it is not as pronounced as it has been in the past. OBJECTIVE: Flexible fiberoptic laryngoscopy is done. The neocord is gradually healing in although there is still some granulation tissue in the bed. The cords support themselves well and his voice is stronger. His tracheotomy site is well healed and there are no masses in the neck. 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 PLAN: He will proceed with radiation and I will see him back at the completion of this. If there are any problems at all with his breathing during radiation, he will return here for assessment. Dylan Arthur M.D. KRIS/minerva cc: AGUSTINA QUEZADA MD [id number] [facility] [id number] MAYCOL CALLAHAN MD [address] [id number] signed by Interface, Respiratory Therapy Instructor In at 03/16/2006 3 :04 AM PSTdocumented in this encounter Plan of Treatment Not on filedocumented as of this encounter Visit Diagnoses Not on filedocumented in this encounter"
--- OUTSIDE RECORDS SUMMARY | ~2019-02-20 | XMS | Encounter Summary ---
Demographics + + + | Address | [address] | | | [place] [address] | + + + | Home Phone | | + + + | Preferred Language | Unknown | + + + | Marital Status | | + + + | Zoroastrian Affiliation | LUT | + + + | Race | White | + + + | Ethnic Group | Not or | + + + Author + + + | Author | [facility] | + + + | Organization | [facility] | + + + | Address | Unknown | + + + | Phone | Unavailable | + + + Support + + +---------+ + | Name | Relationship | Address | Phone | + + +---------+ + | Blossom Rose | ECON | Unknown | | + + +---------+ + Care Team Providers + +------+ + | Care Rn Procedure Name | Role | Phone | + [...] as of this encounter Progress Notes Interface, Public Administration Professor In - 01/17/2006 5:13 AM PSTCLINIC DATE: [...] 6 months. Dylan Arthur M.D. Kaycee / [id number] / [id number] / [id number] / [id number] signed by Interface, Public Administration Professor In at 01/17/2006 5:13 AM PSTdocume nted in this encounter Plan of Treatment Not on filedocumented as of this encounter Visit Diagnoses Not on filedocumented in this encounter"
--- OUTSIDE RECORDS SUMMARY | ~2019-02-20 | XMS | Encounter Summary ---
Demographics + + + | Address | [address] | | | [place] [address] | + + + | Home Phone | | + + + | Preferred Language | Unknown | + + + | Marital Status | | + + + | Temple Affiliation | 1028 | + + + [...] [place] | | | | | [address] | | + + + + + Care Team Providers + +------+ + | Care Supervisor Customer Services Name | Role | Phone | + +------+ + | Nelson Laird MD | PCP | | + +------+ + Encounter Details +--------+ + + + + | Date | Type | Department | Care Team | Description | +--------+ + + + + | 07/04/ | Orders Only | [facility] | Nicolas Trujillo MD | | | 2018 | | VASCULAR SURGERY | [address] | | | | | ULTR[address] | [place] [address] [place], [place] | | | | | [address] | [address] | | | | | [place], [place] | [phone] | | | | | [address] | | | | | | [phone] | | | +--------+ + + + [...] | | | | | | [place] [address] | | | | | | [phone] | | | | | | | | +--------+---------+ + + + | 05/19/ | Office | Cardiology | Cristian Mccoy, | | | 2019 | Visit | | MD [address] | | | | | | [address] [place], [place] | | | | | | [address] | | | | | | | | +--------+---------+ + + + documented as of this encounter Procedures + +--------+ + + + | Procedure Name | Priori | Date/Time | Associated Diagnosis | Comments | | | ty | | | | + +--------+ + + + | VAS CAROTID DUPLEX | Routin | 07/04/2017 | | Results for this | | BILATERAL | e | 4:21 PM | | procedure are in the | | | | PDT | | results section. | + +--------+ + + + documented in this encounter Results VAS Carotid Duplex Bilateral (07/04/2017 4:21 PM PDT) + + | Specimen | + + | | + + + + + | Impressions | Performed At | + + + | 1. Tortuous vessels with atherosclerotic vascular disease, dense | | | plaque particular the right carotid bulb. However, no high-grade | | | stenosis by this modality Grades: 1 Stenosis =01-30% | | | PSV <125 cm/sec EDV (cm/s)<40 cm/sec (mild plaque) 2 | | | Stenosis =31-50% PSV <125 cm/sec EDV (cm/s)<40 cm/sec | | | (moderate plaque) 3 Stenosis =50-69% PSV >125 cm/sec | | | EDV (cm/s)>40 cm/sec 4 Stenosis =70-95% PSV >230 | | | cm/sec EDV (cm/s)>100 cm/sec 5 Stenosis =90-95% PSV | | | <125 cm/sec EDV (cm/s)<40 cm/sec 6 Stenosis Occluded | | | If IC/CC ratio <2 then Grades 1 or 2. If IC/CC ratio > 2 and | | | <4 then Grade 3. If IC/CC ratio > 4 then 4 or above. | | | | | + + + + + + | Narrative | Performed At | + + + | HISTORY:72 [id number] male with a history of vasculopathy, | | | screen for stenosis TECHNIQUE: Ultrasound of the carotid and | | | vertebral artery systems. Duplex examination with interrogation with | | | color flow and waveforms with Doppler technique Prior study for | | | comparison, 24 February 2010. Stenosis was estimated on the basis | | | validated velocity measurements, standards verified by angiographic | | | measurements. Extrapolated from diameter data as defined be the | | | Society of Radiologists in Ultrasound Consensus Conference in | | | Radiology 2003. 229:340-346. FINDINGS: Analysis of the | | | right. Proximal CCA -- 108 cm/s Distal CCA -- 85 cm/s Proximal | | | ICA -- 63 cm/s Mid ICA -- 60 cm/s Distal ICA -- 126 cm/s Proximal | | | ECA -- 98 cm/s Antegrade vertebral artery flow is identified -- 63 | | | cm/s IC/CC ratio : 0.7 Analysis of the left. Proximal CCA -- | | | 108 cm/s Distal CCA -- 219 cm/s Proximal ICA -- 103 cm/s Mid ICA | | | -- 61 cm/s Distal ICA -- 53 cm/s Proximal ECA -- 171 cm/s | | | Antegrade vertebral artery flow is identified -- 85 cm/s IC/CC ratio | | | : 0.5 Diastolic velocities are normal Wave forms are normal in | | | rate and rhythm and appearance. Vessels are tortuous On visual | | | inspection, vessels demonstrate dense plaque at the right carotid | | | bulb.. True duplex examination documenting normal spectral analysis as | | | well as color flow as expected for the arterial structures of the | | | neck. | | + + + + + | Procedure Note | + + | Steven, Rad Conversion - 11/06/2018 3:16 PM PDT HISTORY:72 [id number] male with a | | history of vasculopathy, screen for stenosis TECHNIQUE: Ultrasound of the carotid and | | vertebral artery systems. Duplex examination with interrogation with color flow and | | waveforms with Doppler techniquePrior study for comparison, 24 February 2010. Stenosis | | was estimated on the basis validated velocity measurements, standards verified by | | angiographic measurements. Extrapolated from diameter data as defined be the Society of | | Radiologists in Ultrasound Consensus Conference in Radiology 2003. 229:340-346. | | FINDINGS: Analysis of the right. Proximal CCA -- 108 cm/sDistal CCA -- 85 cm/sProximal | | ICA -- 63 cm/sMid ICA -- 60 cm/sDistal ICA -- 126 cm/sProximal ECA -- 98 cm/s Antegrade | | vertebral artery flow is identified -- 63 cm/sIC/CC ratio : 0.7 Analysis of the left. | | Proximal CCA -- 108 cm/sDistal CCA -- 219 cm/sProximal ICA -- 103 cm/sMid ICA -- 61 | | cm/sDistal ICA -- 53 cm/sProximal ECA -- 171 cm/s Antegrade vertebral artery flow is | | identified -- 85 cm/sIC/CC ratio : 0.5 Diastolic velocities are normalWave forms are | | normal in rate and rhythm and appearance. Vessels are tortuous On visual inspection, | | vessels demonstrate dense plaque at the right carotid bulb.. True duplex examination | | documenting normal spectral analysis as well as color flow as expected for the arterial | | structures of the neck. IMPRESSION: 1. Tortuous vessels with atherosclerotic vascular | | disease, dense plaque particular the right carotid bulb. However, no high-grade stenosis | | by this modality Grades:1 Stenosis =01-30% PSV <125 cm/sec EDV (cm/s)<40 | | cm/sec (mild plaque)2 Stenosis =31-50% PSV <125 cm/sec EDV (cm/s)<40 cm/sec | | (moderate plaque)3 Stenosis =50-69% PSV >125 cm/sec EDV (cm/s)>40 cm/sec4 | | Stenosis =70-95% PSV >230 cm/sec EDV (cm/s)>100 cm/sec5 Stenosis =90-95% | | PSV <125 cm/sec EDV (cm/s)<40 cm/sec6 Stenosis Occluded If IC/CC ratio <2 | | then Grades 1 or 2.If IC/CC ratio > 2 and <4 then Grade 3.If IC/CC ratio > 4 then 4 or | | above. | |Distal CCA -- 219 cm/s | |Proximal ICA -- 103 cm/s | |Mid ICA -- 61 cm/s | |Distal ICA -- 53 cm/s | |Proximal ECA -- 171 cm/s | | | |Antegrade vertebral artery flow is identified -- 85 cm/s | |IC/CC ratio : 0.5 | | | |Diastolic velocities are normal | |Wave forms are normal in rate and rhythm and appearance. Vessels are tortuous | | | |On visual inspection, vessels demonstrate dense plaque at the right carotid bulb.. True dup isabelle examination documenting normal spectral analysis as well as color flow as expected for t he arterial structures of the neck. | | | |IMPRESSION: | | | |1. Tortuous vessels with atherosclerotic vascular disease, dense plaque particular the righ t carotid bulb. | | | |However, no high-grade stenosis by this modality | | | |Grades: | |1 Stenosis =01-30% PSV <125 cm/sec EDV (cm/s)<40 cm/sec (mild plaque) | |2 Stenosis =31-50% PSV <125 cm/sec EDV (cm/s)<40 cm/sec (moderate plaque) | |3 Stenosis =50-69% PSV >125 cm/sec EDV (cm/s)>40 cm/sec | |4 Stenosis =70-95% PSV >230 cm/sec EDV (cm/s)>100 cm/sec | |5 Stenosis =90-95% PSV <125 cm/sec EDV (cm/s)<40 cm/sec | |6 Stenosis Occluded | | | |If IC/CC ratio <2 then Grades 1 or 2. | |If IC/CC ratio > 2 and <4 then Grade 3. | |If IC/CC ratio > 4 then 4 or above. | | | | | | | | | + + documented in this encounter Visit Diagnoses Not on filedocumented in this encounter"
--- OUTSIDE RECORDS SUMMARY | ~2019-02-20 | XMS | Encounter Summary ---
Demographics + + + | Address | [address] | | | [place] [address] | + + + | Home Phone | | + + + | Preferred Language | Unknown | + + + | Marital Status | | + + + | Hindu Affiliation | LUT | + + + | Race | White | + + + | Ethnic Group | Not or | + + + Author + + + | Author | [facility] | + + + | Organization | [facility] | + + + | Address | Unknown | + + + | Phone | Unavailable | + + + Support + + +---------+ + | Name | Relationship | Address | Phone | + + +---------+ + | Blossom Rose | ECON | Unknown | | + + +---------+ + Care Team Providers + +------+ + | Care Mechanical Handyman Name | Role | Phone | + +------+ + | Maycol Callahan MD | PCP | | + +------+ + Encounter Details +--------+ + + + + | Date | Type | Department | Care Team | Description | +--------+ + + + + | 04/01/ | Office | [facility] | Note, [...] as of this encounter Progress Notes Interface, Mail Handler Assistant In - 03/18/2006 5:06 AM PSTCLINIC DATE: 04/01/1998 OTOLARYNGOLOGY CLINIC SUBJECTIVE: Mr. Rose is seen back in follow-up from his hemilaryngectomy. He and I have talked at some length and I have reviewed his slides here at [facility]. It is clear that there is extension along small nerves in the periglottic space that make the issue of the margins questionable. I am recommending postoperative radiation. OBJECTIVE: From a healing standpoint, the patient is doing well. He is breathing without difficulty and is on a prednisone taper. His external incision looks good. Flexible fiberoptic laryngoscopy reveals that the area of eschar over his larynx on the hemilaryngectomy site is gradually epithelializing very well. 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 PLAN: I will see the patient back here in approximately three weeks. In the interim, I have given him his x-ray and notes and he will make an appointment for radiation therapy in [place]. I will call the radiation therapist once he calls with the name to go over the situation. Dylan Arthur M.D. KRIS/clif CC: AGUSTINA FERNANDEZ MD [address] [place] [address] [place] [address] MAYCOL CALLAHAN MD [address] [place] [address] [place] [id number] signed by Interface, Mail Handler Assistant In at 03/18/2006 5:0 6 AM PSTdocumented in this encounter Plan of Treatment Not on filedocumented as of this encounter Visit Diagnoses Not on filedocumented in this encounter"
--- OUTSIDE RECORDS SUMMARY | ~2019-02-20 | XMS | Encounter Summary ---
Demographics + + + | Address | [address] | | | [place] [address] | + + + | Home Phone | | + + + | Preferred Language | Unknown | + + + | Marital Status | | + + + | Restorationism Affiliation | LUT | + + + [...] Team Providers + +------+ + | Care Carding Machine Feeder Name | Role | Phone | + +------+ + | Maycol Knutson MD | PCP | | + +------+ + Encounter Details +--------+ + + + + | Date | Type | Department | Care Team | Description | +--------+ + + + + | 11/06/ | Letter-[facility] | | Letters, Other | Letters | | 2003 | scribed | | | | +--------+ [...] as of this encounter Progress Notes Interface, Mortgage Assistant In - 09/09/2005 1:04 AM [place] [facility] [place] [address] [place], [place] [id number] or November 06, 2002 Maycol Knutson M.D. [address] [place] [address] [address] [place] [address] RE: KEIRY ROSE MR #: [id number] Dear Dr. 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 Please record that on full examination, as outlined in my handwritten notes, he has no evidence of recurrent disease. He is beginning to have a few mild symptoms of gastroesophageal reflux again although these are very mild and at the present time I think they can be monitored alone. He shows no evidence on his examination of a significant erythema or irritation from this. I plan to see him back here in 6 months with a chest x-ray which will be his 5-year followup visit at the point of which we would normally discharge him from followup in terms of cancer care. I appreciate the chance to care for him. Please call me if you have any questions. Yours sincerely, Dylan Arthur M.D. [facility] / [id number] / [id number] / [id number] / cc: Moisés Quezada M.D. [address] [facility] [address] [place], [place] [id number] signed by Interface, Mortgage Assistant In at 09/09/2005 1:0 4 AM PDTdocumented in this encounter Plan of Treatment Not on filedocumented as of this encounter Visit Diagnoses Not on filedocumented in this encounter"
--- OUTSIDE RECORDS SUMMARY | ~2019-02-20 | XMS | Encounter Summary ---
Demographics + + + | Address | [address] | | | [place] [address] | + + + | Home Phone [...] Team Providers + +------+ + | Care Knock Out Hand Name | Role | Phone | [...] as of this encounter Progress Notes Interface, Cutting Room Supervisor In - 02/26/2006 5:02 AM PSTCLINIC DATE: 09/21/1998 GENERAL SURGERY CLINIC PRIMARY PHYSICIAN: Dr. Maycol Knutson. CHIEF COMPLAINT: Gastroesophageal reflux disease. HISTORY [...] HABITS: The patient lives with his in [place], [place]. REVIEW OF SYSTEMS: On the review [...] Deandra Zuñiga M.D., F.A.C.P., F.A.C.Priyanka Parrish MD [address] [place] [address] [place] [id number] signed by Interface, Cutting Room Supervisor In at 02/26/2006 5:02 AM PSTdocumented in this encounter Plan of Treatment Not on filedocumented as of this encounter Visit Diagnoses Not on filedocumented in this encounter"
--- OUTSIDE RECORDS SUMMARY | ~2019-02-20 | XMS | Encounter Summary ---
Demographics + + + | Address | [address] | | | [place] [address] | + + + | Home Phone [...] [place] | | | | | [address] | | + + + + + Care Team Providers + +------+ + | Care Medical Records Field Technician Name | Role | Phone | [...] + + | 12/31/ | Refill | [facility] | Cristian Mccoy, | Medication Refill | | 2019 | | CARDIOLOGY DIONICIO | [address] | | | | | [address] | [place], [place] | | | | | [address] | [address] | | | | | [place] | | | | | | [address] | | | | | | [phone] | | | +--------+--------+ + + + [...] | | | | | | [place] [address] | | | | | | [phone] | | | | | | | | +--------+---------+ + + + | 05/19/ | Office | Cardiology | Cristian Mccoy, | | | 2019 | Visit | | [address] | | | | | | [place] | | | | | | [address] | | | | | | | | +--------+---------+ + + + documented as of this encounter Visit Diagnoses Not on filedocumented in this encounter"
--- OUTSIDE RECORDS SUMMARY | ~2019-02-20 | XMS | Encounter Summary ---
Demographics + + + | Address | [address] | | | [place] [address] | + + + | Home Phone | | + + + | Preferred Language | Unknown | + + + | Marital Status | | + + + | Anabaptism Affiliation | LUT | + + + | Race | White | + + + | Ethnic Group | Not or | + + + Author + + + | Author | [facility] | + + + | Organization | [facility] | + + + | Address | Unknown | + + + | Phone | Unavailable | + + + Support + + +---------+ + | Name | Relationship | Address | Phone | + + +---------+ + | Blossom Rose | ECON | Unknown | | + + +---------+ + Care Team Providers + +------+ + | Care Heater Worker Name | Role | Phone | + +------+ + | Maycol Knutson MD | PCP | | + +------+ + Encounter Details +--------+ + + + + | Date | Type | Department | Care Team | Description | +--------+ + + + + | 08/02/ | Office | [facility] | Note, [...] as of this encounter Progress Notes Interface, Digital Solution Architect In - 03/08/2006 5:03 AM PSTINIC DATE: 08/01/1998 OTOLARYNGOLOGY CLINIC SUBJECTIVE: The patient returns to clinic today for placement of a pH probe. He has a history of laryngeal stenosis status post a partial laryngectomy. There is some question of gastroesophageal reflux disease being a factor in the stenosis. PROCEDURE: The patient's nose was anesthetized and decongested with 1% lidocaine with phenylephrine spray. The throat was likewise anesthetized. The probe was inserted through the right naris into the oropharynx. A nasopharyngoscope was then inserted through the left naris to visualize the probe being placed. The probe was advanced until the upper probe was just into the postcricoid region. The probe was secured in place at the nose, and its position was rechecked with the flexible nasopharyngoscope. ASSESSMENT: Placement of pH probe in clinic today. PLAN: The patient will return to the GI lab in 24 hours for removal of the probe. He will then follow up with Dr. Arthur in the ENT Clinic to review the results and to undergo preoperative workup for the planned dilatation of the laryngeal stenosis. Jose Juan Rodriguez M.D. Resident, Otolaryngology Head and Neck Surgery AL/klaus SSA Perez, Digital Solution Architect In - 03/08/2006 5:03 AM PSTINIC DATE: 08/02/1998 OTOLARYNGOLOGY HEAD AND NECK SURGERY CLINIC Mr. Rose is seen back preoperatively in follow-up from his pH probe which shows significant supine, proximal and distal reflux. I have discussed this with him. We had a PAR regarding the proposed procedure including the possibility of trachea. He seems to understand very well what is involved. Consent was signed. Dylan Arthur M.D. INDIA/janet Tdocumented in this encounter Plan of Treatment Not on filedocumented as of this encounter Visit Diagnoses Not on filedocumented in this encounter"
--- OUTSIDE RECORDS SUMMARY | ~2019-02-20 | XMS | Encounter Summary ---
Demographics + + + | Address | [address] | | | [place] [address] | + + + | Home Phone [...] [place] | | | | | [address] | | + + + + + Care Team Providers + +------+ + | Care Correctional Cook Name | Role | Phone | [...] + + | 02/03/ | Office | [facility] | Aleksandar Tejeda PA | NOLA (obstructive | | 2012 | Visit | SLEEP DISORDER [address] | [address] | sleep apnea) | | | | [address] | [facility] [place] | (Primary Dx); | | | | [place] [address] | [address] | [place]Wallace | | | | [phone] | | respiration | +--------+---------+ + + [...] BiPAP with nasal mask (Cary) obtained from: 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 He [...] I also recommended that he go to [facility] to try a different mask. I will follow up again in 1 month, sooner prn. Thirty minutes were spent [id number], wit h the majority of time spent [...] | | | | | | [place] [address] | | | | | | [phone] | | | | | | | | +--------+---------+ + + + | 05/19/ | Office | Cardiology | Cristian Mccoy, | | | 2019 | Visit | | MD [address] | | | | | | [place] | | | | | | [address] | | | | | | | | +--------+---------+ + + + documented as of this encounter Visit Diagnoses + + | Diagnosis | + + | NOLA (obstructive sleep apnea) - Primary Obstructive sleep apnea (adult) (pediatric) | + + | Victoriano-Wallace respiration | + + documented in this encounter"
--- OUTSIDE RECORDS SUMMARY | ~2019-02-20 | XMS | Encounter Summary ---
Demographics + + + | Address | [address] | | | [place] [address] | + + + | Home Phone | | + + + | Preferred Language | Unknown | + + + | Marital Status | | + + + | Rastafari Affiliation | LUT | + + + [...] Team Providers + +------+ + | Care Marine Resource Economist Name | Role | Phone | + +------+ + | Maycol Knutson MD | PCP | | + +------+ + Encounter Details +--------+ + + + + | Date | Type | Department | Care Team | Description | +--------+ + + + + | 11/07/ | Office | | Note, Outpatient | Progress Note | | 2002 | Visit-Trans | | Clinic | | | | cribed [...] as of this encounter Progress Notes Interface, Spray Technician In - 11/06/2005 3:07 AM PDTCLINIC DATE: 11/07/2001 Mr. Rose is seen back today. Details of interaction with the patient are outlined in my handwritten notes. The summary is that he is doing well without evidence of recurrent disease on full exam including a flexible fiberoptic laryngoscopy. Chest x-ray is being done by his primary care physician. I will see him back here in approximately 6 months. Dylan Arthur M.D. [facility] / [id number] / [id number] / [id number] / [id number] cc: Maycol Jalloh M.D. [address] [place] [address] Moisés Quezada M.D. [address] [facility] [place], [place] [id number] signed by Interface, Spray Technician In at 11/06/2005 3:0 7 AM PDTdocumented in this encounter Plan of Treatment Not on filedocumented as of this encounter Visit Diagnoses Not on filedocumented in this encounter"
--- OUTSIDE RECORDS SUMMARY | ~2019-02-20 | XMS | Encounter Summary ---
Demographics + + + | Address | [address] | | | [place] [address] | + + + | Home Phone | | + + + | Preferred Language | Unknown | + + + | Marital Status | | + + + | Congregation Affiliation | LUT | + + + | Race | White | + + + | Ethnic Group | Not or | + + + Author + + + | Author | [facility] | + + + | Organization | [facility] | + + + | Address | Unknown | + + + | Phone | Unavailable | + + + Support + + +---------+ + | Name | Relationship | Address | Phone | + + +---------+ + | Blossom Rose | ECON | Unknown | | + + +---------+ + Care Team Providers + +------+ + | Care Global Account Manager Name | Role | Phone | + +------+ + | Maycol Knutson MD | PCP | | + +------+ + Encounter Details +--------+ + + + + | Date | Type | Department | Care Team | Description | +--------+ + + + + | 01/04/ | Office | [facility] | Note, [...] as of this encounter Progress Notes Interface, Chemical Plant Worker In - 01/26/2006 1:09 AM PSTCLINIC DATE: 01/05/2000 OTOLARYNGOLOGY HEAD AND NECK SURGERY SUBJECTIVE: Mr. Rose is seen back in followup with respect to his laryngotracheal reconstruction as well as his laryngeal carcinoma. He is basically asymptomatic from a voice standpoint right now and has completely normal exercise tolerance. His voice is a little lower in pitch today, but otherwise, he has no complaints. PHYSICAL EXAMINATION: Flexible fiberoptic laryngoscopy is done. His subglottic and glottic airways look good. He still has a little bit of residual scar tissue anteriorly which is maturing; otherwise, he has a fairly normal configuration. ASSESSMENT: Status post normal tracheoplasty, doing well. PLAN: I will see him back here in approximately 2 months for his 2-year checkup. He will be seen at the same time for videostroboscopy. Dylan Arthur M.D. [facility] / [id number] / [id number] / [id number] / cc: Moisés Quezada M.D. [address] [facility] [place] [address] Maycol Knutson M.D. [address] [facility] [place] [id number] signed by Interface, Chemical Plant Worker In at 01/26/2006 1:09 AM PSTdocume nted in this encounter Plan of Treatment Not on filedocumented as of this encounter Visit Diagnoses Not on filedocumented in this encounter"
--- OUTSIDE RECORDS SUMMARY | ~2019-02-20 | XMS | Encounter Summary ---
Demographics + + + | Address | [address] | | | [place] [address] | + + + | Home Phone | | + + + | Preferred Language | Unknown | + + + | Marital Status | | + + + | Cheondoism Affiliation | LUT | + + + | Race | White | + + + | Ethnic Group | Not or | + + + Author + + + | Author | [facility] | + + + | Organization | [facility] | + + + | Address | Unknown | + + + | Phone | Unavailable | + + + Support + + +---------+ + | Name | Relationship | Address | Phone | + + +---------+ + | Blossom Rose | ECON | Unknown | | + + +---------+ + Care Team Providers + +------+ + | Care Knitted Garment Finisher Name | Role | Phone | + [...] Esophageal | Alexei S, | [address] | | | | | stenosis | MD [address] | [place] | | | | | Procedures | Nahun Love | Mailcode: | | | | | X-RAY | Kimberly Patterson | [facility] | | | | | ESOPHAGRAM | [facility] [place] | for Health | | | | | | [address] | and Healing, | | | | | | Phone: | [facility] 1, | | | | | | [phone] | 3rd Floor | | | | | | Fax: | [place], [place] | | | | | | [phone] | [address] | | | | | | | Phone: | | | | | | | [phone] | | | | | | | Fax: | | | | | | | [phone] | +--------+--------+ + + + + Speech [...] | | | | ENT SPEECH | [place], [place] | [address] | | | | | THERAPY | [address] | Physician's | | | | | | Phone: | Pavilion | | | | | | [phone] | [place], [place] | | | | | | Fax: | [address] | | | | | | [phone] | Phone: | | | | | | | [phone] | | | | | | | Fax: | | | | | | | [phone] | +--------+--------+ + + + + Reason [...] Patterson | | | | | | [place], [place] | Mailcode: | | | | | | [address] | [address] | | | | | | | Physician's | | | | | | | Pavilion | | | | | | | [place], [place] | | | | | | | [address] | | | | | | | Phone: | | | | | | | [phone] | | | | | | | Fax: | | | | | | | [phone] | +--------+--------+ + + + + Encounter [...] | | | [address] | [facility] [place] | dysphagia; | | | | Mailcode: [address] | [address] | Esophageal stenosis; | | | | Physician[facility] Pavilion | [phone] | Larynx edema | | | | [place], [place] | | | | | | [address] | | | | | | [phone] | | | +--------+---------+ + + + [...] 2:05 PM PDT PATIENT NAME: German Rose NHJOSE MR#: [id number] : 1945 REFERRING PROVIDER: RICKEY GAGNON Otolaryngology [address] [place] [address] PRIMARY CARE PROVIDER: Maycol Knutson MD CLINIC: [facility] REASON FOR FOLLOW-UP:Chief Complaint Patient presents with New patient consultation HPI: German Rose is a 64 y.o. male who was last seen at the [facility] for acute [...] right glottis Radiation fibrosis larynx Glottic stenosis UT (myocardial infarction) PUD (peptic ulcer disease) Fibromyalgia [...] sooner if symptoms worsen. Alexei De M.D. Construction Rep Laryngology and Head & Neck Surgery documented [...] + + +--------+ + + | [place] | Procedures | Routin | Glottic stenosis [...]
--- OUTSIDE RECORDS SUMMARY | ~2019-02-20 | XMS | Encounter Summary ---
Demographics + + + | Address | [address] | | | [place] [address] | + + + | Home Phone | | + + + | Preferred Language | Unknown | + + + | Marital Status | | + + + | Shinto Affiliation | 1028 | + + + | Race | Unknown | + + + | Ethnic Group | Unknown | + + + Author + + + | Author | [facility] | | | and [place] | + + + | Organization | [facility] | | [...] [place] | | | | | [address] | | + + + + + Care Team Providers + +------+ + | Care College Service Officer Name | Role | Phone | + +------+ + | Maycol Knutson MD | PCP | | + +------+ + Reason for Visit +--------+ + | Reason | Comments | +--------+ + | Apnea | | +--------+ + Encounter Details +--------+---------+ + + + | Date | Type | Department | Care Team | Description | +--------+---------+ + + + | 03/17/ | Office | [facility] | Aleksandar Tejeda PA | NOLA on CPAP (Primary | | 2012 | Visit | SLEEP DISORDER [address] | [address] | Dx); [place]ace | | | | [address] | [place] | respiration | | | | [place] [address] | [address] | | | | | [phone] | | | +--------+---------+ + + + [...] + + + | Blood Pressure | 102/58 | 03/17/2013 10:15 AM | | | | | PST | | + + + + + | Pulse | 78 | 03/17/2013 10:15 AM | | | | | PST | | + + + + + | Temperature | - | - | | + + + + + | Respiratory Rate | 16 | 03/17/2013 10:15 AM | | | | | PST | | + + + + + | Oxygen Saturation | - | - | | + + + + + | Inhaled Oxygen | - | - | | | Concentration | | | | + + + + + | Weight | 86.1 kg (189 lb 14.4 | 03/17/2013 10:15 AM | | | | oz) | PST | | + + + + + | Height | - | - | | + + + + + | Body Mass Index | 30.65 | 12/15/2012 1:28 PM | | | | | PDT | | + + + + + documented in this encounter Progress Notes Aleksandar Tejeda PA - 03/17/2013 10:09 AM PST Subjective: Patient ID: German Rose is a 68 y.o. male. HPI last office visit was: 02/03/2013 date of polysomnography: 12/22/2012 AHI: 77.4 RDI: 77.4 O2%: 86% with 15.8 minutes below 88% Machine type: Respironics ASV BiPAP with nasal mask (Cary) obtained from: [facility] pressure: EPAP = 4cm;PSmin=0cm;PSmax=25cm;backup rate=auto Nights using BiPAP: 36/42 average usage (all nights): 3:40 average usage (nights used): 4:17 AHI: 4.2 German comes in for BiPAP compliance. He continues to wear his BiPAP on a regular basis. He had struggled with adjusting to the fluctuating pressure of the BiPAP, but was doing well f or about two weeks until he got a severe cold. There were many nights that he wasn't able t o breathe through his nose and he had to take off his mask. He is starting to feel better. I have discussed the download in detail. This shows that his sleep apnea is controlled, wi th an AHI of 4.2. It also shows that his leaks are well controlled. Review of Systems Objective: Physical Exam Assessment: Problem #1: OBSTRUCTIVE SLEEP APNEA (ICD 9-327.23) This is controlled with BiPAP. His compliance was going well until he got a cold and has s truggled with breathing through his nose. 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 Plan: He is to continue with his BiPAP indefinitely. I recommended that he increase his humidity to help clear his congestion. If this is not helpful, he should consider using a full face mask. I will follow up again in 1 month, sooner prn. Fifteen minutes were spent [id number], wi th the majority of time spent [...] | | | | | | [place] [address] | | | | | | [phone] | | | | | | | | +--------+---------+ + + + | 05/19/ | Office | Cardiology | Nadine Cristian, | | | 2019 | Visit | | [address] | | | | | | [place] | | | | | | [address] | | | | | | | | +--------+---------+ + + + documented as of this encounter Visit Diagnoses + + | Diagnosis | + + | NOLA on CPAP - Primary Obstructive sleep apnea (adult) (pediatric) | + + | Victoriano-Wallace respiration | + + documented in this encounter"
--- OUTSIDE RECORDS SUMMARY | ~2019-02-20 | XMS | Encounter Summary ---
Demographics + + + | Address | [address] | | | [place] [address] | + + + | Home Phone | | + + + | Preferred Language | Unknown | + + + | Marital Status | | + + + | Christian Affiliation | LUT | + + + [...] Team Providers + +------+ + | Care Cable Installation Technician Name | Role | Phone | [...]
--- OUTSIDE RECORDS SUMMARY | ~2019-02-20 | XMS | Encounter Summary ---
Demographics + + + | Address | [address] | | | [place] [address] | + + + | Home Phone | | + + + | Preferred Language | Unknown | + + + | Marital Status | | + + + | Caodaism Affiliation | 1028 | + + + | Race | Unknown | + + + | Ethnic Group | Unknown | + + + Author + + + | Author | [facility] | | | and [place] | + + + | Organization | [facility] | | | [...] [place] | | | | | [address] | | + + + + + Care Team Providers + +------+ + | Care Rotary Screen Printing Machine Operator Name | Role | Phone | + +------+ + | Maycol Knutson MD | PCP | | + +------+ + Encounter Details +--------+ + + + + | Date | Type | Department | Care Team | Description | +--------+ + + + + | 10/23/ | Hospital | [facility] | Tameka Duke | Thoracic aortic | | 2018 - | Encounter | [facility] | MD Leeroy [address] | aneurysm without | | | | CARE FLOOR [address] [place], [place] | rupture (HCC); ASCVD | | 10/26/ | | [address] | [address] | (arteriosclerotic | | 2018 | | [place], [place] | | cardiovascular | | | | [address] | | disease); Chronic | | | | [phone] | | atrial fibrillation | | | | | | ([facility]); Essential | | | | | | [...] Date of Service: 10/26/17 104 Status: Signed Counter Pocket Sewer: Junie Delvalle MD (Physician) Patient ID: Pavithra Rose [id number] 72 y.o. 1945 Admit date: 10/23/2017 Discharge [...] sternotomy. Heart size is upper normal. Pulmon kneneth venous congestion. Bilateral perihilar mixed interstitial and [...] radiologist report and is used for image [facility] only Ct Head Without Contrast Result Date: 10/23/2017 This is a non-reportable procedure without a radiologist report and is used for image [facility] only Ct Chest Without Contrast Result Date: 10/24/2017 HISTORY: 72 years year-old Male, hemoptysis. TECHNIQUE: CT through the chest. Noncontrast e xamination. Automatic dose adjustment to minimize patient exposure. PRIOR EXAMINATION: Earli er chest radiograph. FINDINGS: Sales Agent Trading Stamps demonstrates cardiomegaly, sternal wires and dense reti [...] radiologist report and is used for image [employer] only Cl Coronary Angio With Grafts Result [...] needle, right femoral access was obtained. A 5-Jamaican sheath was introduced without any difficulty. A 0.035 wire was used and advanced under fluoroscopic gu idance into the ascending aorta. A 5-Jamaican JL4 catheter was used and advanced over [...] the wire was don e with a 5-Jamaican multipurpose catheter that selectively engaged the right SVG to RCA graft. Multiple views were obtained. Exchange over the wire was done with 5-Jamaican AL1 catheter t hat selectively engaged the [...] LA/Ao: 1.22 D-E Excursion: 2.29 cm E-F Maui: 0.09 m/s AV maxP.18 mmHg AV meanP.51 [...] TV A Ed: 0.00 m/s TV Dec Maui: 3.93 m/s2 TV Dec Time: 207.73 ms TV E Ed: 0.56 m/s TV E /A Ratio: 69.55 Doctor Of Osteopathy: ADAM Authenticated by: Cecilia Youngduncan Report Date/Time: 018 13:7:33 1. The left [...] and GI bleed who we nt to [facility] with productive cough, shortness of breath and hemoptysis seconda ry to aspiration pneumonia and found to have positive troponin around 1 hence he was transf erred to [facility] for further workup and treatment. Hospital course by issues: #1 non-ST elevation [place]: Status post cardiac cath which showed triple-vessel disease and rec ommend medical management only. Patient started on Plavix, atorvastatin, patient allergic t o beta barbara has not initiated and patient currently asymptomatic. 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 No questions or concerns at this time. I V removed, wound dressing changed, and pt ready. [facility] Socorro Guo RN ecilia Borges ra, MD - 10/26/2017 9:37 AM PDT Progress Notes by Cecilia Mccoy MD at 10/26/17 0937 Author: Cecilia Mccoy MD Service: Cardiology Author Type: Physician Filed: 10/26/17 0955 Date of Service: 10/26/17936 Status: Signed Counter Pocket Sewer: Cecilia Mccoy MD (Physician) [facility] Service: Cardiology Progress Note Name of Plastic Maker: Cecilia Mccoy MD I have seen the [...] not amenable to PCI. 2. Non-ST elevation [place]. 3. Dysphagia. 4. Hemoptysis minimal, improved. 5. Chronic atrial fibrillation. On rate control strategy and anticoagulation. CHADSVASc sco re of 4. 6. AAA. 7. Coronary artery disease S/[place] 26144. 8. RBBB. 9. Hypertension blood pressures controlled. [...] the original. Nurse Progress Note by Andrea Dogulass RN at 10/26/17621 Author: Andrea Douglass RN Service: (none) Author Type: Registered Nurse Filed: 10/26/17621 Date of Service: 10/26/17621 Status: Signed Counter Pocket Sewer: Andrea Douglass RN (Registered Nurse) VSS and [...] 10/25/171853 Date of Service: 10/25/171843 Status: Signed Counter Pocket Sewer: Socorro Guo RN (Registered Nurse) VSS this [...] Date of Service: 10/25/17 1528 Status: Signed Counter Pocket Sewer: Lelo Barrera RN (Registered Nurse) Discharge Planning: no change at this time to ADC plan of home with spouse. Junie Brody MD - 10/25/2017 3:16 PM PDTFormatting of this note might be different from the or iginal. Progress Notes by Junie Delvalle MD at 10/25/17 4916 Author: Junie Delvalle MD Service: Hospitalist Author Type: Physician Filed: 10/25/17 1610 Date of Service: 10/25/17 1516 Status: Signed Counter Pocket Sewer: Junie Delvalle MD (Physician) Hospitalist Progress Note Pavithra Rose 72 y.o. [id number] 8108/8108-1 male [facility] Day: LOS: 2 days Patient Summary: [...] cardiac stress test study who went to [facility] with ongoing productive cough, shortness of breath and hemoptysis, where he was found to hav e positive troponin and chest x-ray showed pneumonia and patient [facility]. The patient [...] Anaphylaxis Diltiazem Edema Gabapentin Other (See Comments) FILM LIBRARIAN Imipramine Other (See Comments) Urinary retention Metoprolol [...] Procedure Component Value Units Date/Time Iron panel [[id number]] Collected: 10/25/171442 Specimen: Blood Updated: 10/25/171449 Vitamin B12 [[id number]] Collected: 10/25/171442 Specimen: Blood Updated: 10/25/17 1450 Ferritin [[id number]] Collected: 10/25/171442 Specimen: Blood Updated: 10/25/17 1450 Folate [[id number]] Collected: 10/25/171442 Specimen: Blood Updated: 10/25/17 1450 CBC W/Auto Diff (Reflex to Manual) [[id number]] (Abnormal) Collected: 10/25/17 1000 Specimen: Blood Updated: [...] 0.04 K/uL MORPHOLOGY 2+ Comprehensive metabolic panel [[id number]] (Abnormal) Collected: 10/25/17 1000 Specimen: Blood Updated: [...] U/L EGFR 59 (L) mL/min/1.73m2 Sputum culture [[id number]] Collected: 10/24/17 0400 Specimen: Sputum from Sputum [...] WILL BE HELD 48 HOURS. Troponin I [[id number]] (Abnormal) Collected: 10/24/17 0551 Specimen: Blood Updated: 10/24/17 0658 TROPONIN I 1.28 (HH) ng/mL CBC W/Auto Diff (Reflex to Manual) [[id number]] (Abnormal) Collected: 10/24/17 0157 Specimen: Blood Updated: [...] K/uL Platelet Estimate ADEQUATE MORPHOLOGY 2+ Magnesium [[id number]] Collected: 10/24/17156 Specimen: Blood Updated: 10/24/17433 MAGNESIUM 1.8 mg/dL Phosphorus [[id number]] Collected: 10/24/17156 Specimen: Blood Updated: 10/24/17433 PHOSPHORUS 3.4 mg/dL TSH [[id number]] Collected: 10/24/17156 Specimen: Blood Updated: 10/24/17433 TSH 4.150 uIU/mL Basic metabolic panel [[id number]] (Abnormal) Collected: 10/24/17156 Specimen: Blood Updated: 10/24/17433 SODIUM 138 mmol/L POTASSIUM 4.3 mmol/L CHLORIDE 104 mmol/L CO2 24 mmol/L ANION GAP AGAP 14 mmol/L GLUCOSE 75 mg/dL BUN 14 mg/dL CREATININE 1.3 mg/dL BUN/CREAT 11 CALCIUM 8.6 mg/dL EGFR 54 (L) mL/min/1.73m2 Lipid panel [[id number]] (Abnormal) Collected: 10/24/17156 Specimen: Blood Updated: 10/24/17433 CHOLESTEROL 103 mg/dL Triglycerides 116 mg/dL HDL CHOL 24 (L) mg/dL LDL CALC 56 mg/dL Troponin I [[id number]] (Abnormal) Collected: 10/24/17156 Specimen: Blood Updated: 10/24/17 0251 TROPONIN I 1.72 (HH) ng/mL Protime-INR [[id number]] Collected: 10/24/17156 Specimen: Blood Updated: 10/24/17 0221 INR 1.2 Septic Lactic Acid [[id number]] Collected: 10/23/17 2350 Updated: 10/24/17 0023 LACTIC ACID 1.1 mmol/L Troponin I [[id number]] (Abnormal) Collected: 10/23/17 2212 Specimen: Blood Updated: [...] adjustment to minimize patient exposure. PRIOR EXAMINATION: [facility] chest radiograph. FINDINGS: Sales Agent Trading Stamps demonstrates cardiomegaly, sternal wires and dense reti [...] radiologist report and is used for image [employer] [facility] only Cl Coronary Angio With Grafts Result [...] needle, right femoral access was obtained. A 5-Jamaican sheath was introduced without any difficulty. A 0.035 wire was used and advanced under fluoroscopic gu idance into the ascending aorta. A 5-Jamaican JL4 catheter was used and advanced over [...] the wire was don e with a 5-Jamaican multipurpose catheter that selectively engaged the right SVG to RCA graft. Multiple views were obtained. Exchange over the wire was done with 5-Jamaican AL1 catheter t hat selectively engaged the [...] LA/Ao: 1.22 D-E Excursion: 2.29 cm E-F Maui: 0.09 m/s AV maxP.18 mmHg AV meanP.51 [...] TV A Ed: 0.00 m/s TV Dec Maui: 3.93 m/s2 TV Dec Time: 207.73 ms TV E Ed: 0.56 m/s TV E /A Ratio: 69.55 Doctor Of Osteopathy: ADAM Authenticated by: Cecilia Mccoy Report Date/Time: [...] PM PDT Progress Notes by Ariadne El CCC-TRAINING REPRESENTATIVE at 10/25/17 1422 Author: ABEL CampbellTRAINING REPRESENTATIVE Service: (none) Author Type: Speech and Ball Fringe Machine Operator ologist Filed: 10/25/17 1423 Date of Service: 10/25/171421 Status: Signed Counter Pocket Sewer: Ariadne El CCC-TRAINING REPRESENTATIVE (Speech and Language Pathologist) BEDSIDE SWALLOW TRAINING REPRESENTATIVE Last Visit TRAINING REPRESENTATIVE Received On: 10/25/17 Requires TRAINING REPRESENTATIVE Follow Up: Yes Recommendations Liquids Consistency Recommendations: [...] are progressing unless otherwise indicated. Dysphagia Goals Draw Press Operator Goals: Safe/efficient oral intake Pt will have [...] evidence of learning [] Refused Ariadne El CCC-TRAINING REPRESENTATIVE onver ernesto Transaction, Provider Unknown - 10/25/2017 5:58 AM PDT Nurse Progress Note by Andrea Douglass RN at 10/25/17 0558 Author: Andrea Douglass RN Service: (none) Author Type: Registered Nurse Filed: 10/25/1759 Date of Service: 10/25/17557 Status: Signed Counter Pocket Sewer: Andrea Douglass RN (Registered Nurse) Pt arrived [...] 10/25/17710 Date of Service: 10/25/17545 Status: Signed Counter Pocket Sewer: Cecilia Mccoy MD (Physician) [facility] Service: Cardiology Progress Note Name of Plastic Maker: Cecilia Mccoy MD I have seen the [...] Delvalle MD, 8 1 mg at 10/24/17 3049 atorvastatin (LIPITOR) tablet 40 mg, 40 mg, [...] mg, 0.4 mg, Oral, after dinner, Tameka uDke MD, 0.4 mg at 10/23/17 2254 zolpidem [...] not amenable to PCI. 2. Non-ST elevation [place]. 3. Dysphagia. 4. Hemoptysis minimal, improved. 5. Chronic atrial fibrillation. On rate control strategy and anticoagulation. CHADSVASc sco re of 4. 6. AAA. 7. Coronary artery disease [place] 64[address]. 8. RBBB. 9. Hypertension blood pressures controlled. [...] 10/24/172029 Date of Service: 10/24/172029 Status: Signed Counter Pocket Sewer: Luca Toussaint RPH (Pharmacist) Note ccl 49ml/min meds reviewed pharmacy will follow [facility] 2029 ecilia Borges ra, MD - 10/24/2017 6:11 PM PDT Progress Notes by Cecilia Mccoy MD at 10/24/171810 Author: Cecilia Mccoy MD Service: Cardiology Author Type: Physician Filed: 10/24/171814 Date of Service: 10/24/171810 Status: Signed Counter Pocket Sewer: Cecilia Mccoy MD (Physician) [facility] Service: Cardiology Pre-Operative History & Physical [...] more than one vascular access site, , [place], CVA, bleedin g (including the need for [...] 10/24/171741 Date of Service: 10/24/171739 Status: Addendum Counter Pocket Sewer: Jimmy Agarwal RN (Registered Nurse) Related Notes: [...] Date of Service: 10/24/17 1601 Status: Signed Counter Pocket Sewer: Niya Maldonado, RN (Registered Nurse) 10/24/17 1500 [...] clinical outcomes Patient's PCP is:Nelson Laird Patient's insurance:Medicare/[employer] Coverage concerns: no concerns Medication coverage/concerns:No concerns Community resources utilized / needed: none currently, pt recently finished respiratory the [facility] outpatient that included PT Assistance in transportation: [...] Date of Service: 10/24/17 1510 Status: Addendum Counter Pocket Sewer: Junie Delvalle MD (Physician) Related Notes: Original Note by Junie Delvalle MD (Physician) filed at 10/25/17 1251 Hospitalist Progress Note Pavithraroseanne Rose 72 y.o. [id number] 8108/8108-1 male [facility] Day: LOS: 1 day Patient Summary: [...] cardiac stress test study who went to [facility] with ongoing productive cough, shortness of breath and hemoptysis, where he was found to hav e positive troponin and chest x-ray showed pneumonia and patient was transferred to [facility] for further workup and treatment. The [...] Anaphylaxis Diltiazem Edema Gabapentin Other (See Comments) FILM LIBRARIAN Imipramine Other (See Comments) Urinary retention Metoprolol [...] Procedure Component Value Units Date/Time Sputum culture [[id number]] Collected: 10/24/17 0400 Specimen: Sputum from Sputum Updated: 10/24/17704 Troponin I [[id number]] (Abnormal) Collected: 10/24/17550 Specimen: Blood Updated: 10/24/17657 TROPONIN I 1.28 (HH) ng/mL CBC W/Auto Diff (Reflex to Manual) [[id number]] (Abnormal) Collected: 10/24/17156 Specimen: Blood Updated: 10/24/17436 [...] K/uL Platelet Estimate ADEQUATE MORPHOLOGY 2+ Magnesium [[id number]] Collected: 10/24/17156 Specimen: Blood Updated: 10/24/17433 MAGNESIUM 1.8 mg/dL Phosphorus [[id number]] Collected: 10/24/17156 Specimen: Blood Updated: 10/24/17433 PHOSPHORUS 3.4 mg/dL TSH [[id number]] Collected: 10/24/17156 Specimen: Blood Updated: 10/24/17433 TSH 4.150 uIU/mL Basic metabolic panel [[id number]] (Abnormal) Collected: 10/24/17156 Specimen: Blood Updated: 10/24/17433 SODIUM 138 mmol/L POTASSIUM 4.3 mmol/L CHLORIDE 104 mmol/L CO2 24 mmol/L ANION GAP AGAP 14 mmol/L GLUCOSE 75 mg/dL BUN 14 mg/dL CREATININE 1.3 mg/dL BUN/CREAT 11 CALCIUM 8.6 mg/dL EGFR 54 (L) mL/min/1.73m2 Lipid panel [[id number]] (Abnormal) Collected: 10/24/17156 Specimen: Blood Updated: 10/24/17 0434 CHOLESTEROL 103 mg/dL Triglycerides 116 mg/dL HDL CHOL 24 (L) mg/dL LDL CALC 56 mg/dL Troponin I [[id number]] (Abnormal) Collected: 10/24/17156 Specimen: Blood Updated: 10/24/17 025 TROPONIN I 1.72 (HH) ng/mL Protime-INR [[id number]] Collected: 10/24/17156 Specimen: Blood Updated: 10/24/17 022 INR 1.2 Septic Lactic Acid [[id number]] Collected: 10/23/172349 Updated: 10/24/17 0023 LACTIC ACID 1.1 mmol/L Troponin I [[id number]] (Abnormal) Collected: 10/23/172211 Specimen: Blood Updated: 10/23/172253 [...] radiologist report and is used for image [facility] only Ct Head Without Contrast Result Date: 10/23/2017 This is a non-reportable procedure without a radiologist report and is used for image [facility] only Ct Chest Without Contrast Result Date: 10/24/2017 HISTORY: 72 years year-old Male, hemoptysis. TECHNIQUE: CT through the chest. Noncontrast e xamination. Automatic dose adjustment to minimize patient exposure. PRIOR EXAMINATION: [facility] er chest radiograph. FINDINGS: Sales Agent Trading Stamps demonstrates cardiomegaly, sternal wires and dense reti [...] LA/Ao: 1.22 D-E Excursion: 2.29 cm E-F Maui: 0.09 m/s AV maxP.18 mmHg AV meanP.51 [...] TV A Ed: 0.00 m/s TV Dec Maui: 3.93 m/s2 TV Dec Time: 207.73 ms TV E Ed: 0.56 m/s TV E /A Ratio: 69.55 Doctor Of Osteopathy: AADM Authenticated by: Cecilia Mccoy Report Date/Time: 018 13:7:33 1. The left ventricle cavity is normal in size, mild concentric hypertrophy and normal sys tolic function EF 55%. Mild inferior and inferolateral hypokinetic segments. 2. Mild degener ative changes in the aortic and mitral valves. 3. There is no pericardial effusion. PROBLEM LIST Principal Problem: NSTEMI (non-ST elevated myocardial infarction) ([facility]) Active Problems: Aortic aneurysm (HCC) ASCVD (arteriosclerotic [...] worse and case discussed with Dr. Mccoy, camouflage assembler, who is in agreement and will ke [...] Notes by Mary Baldwin RD at 10/24/17 1506 Author: Mary Baldwin RD Service: (none) Author Type: Registered Dietitian Filed: 10/24/17 8271 Date of Service: 10/24/17 2396 Status: Signed Counter Pocket Sewer: Mary Baldwin RD (Registered Dietitian) 10/24/17 1400 [...] hasn't eaten in two days. 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 Type of Food / Meals NPO Nutrition-Focused Physical Findings Overall Appearance Reports he appears much thinner and clothes have not been fitting him as well. Body Language Pt very pleasant. Extremities, Muscles and Bones Bruising Digestive System (Mouth to Rectum) TRAINING REPRESENTATIVE following. Anthropometrics Weight change Admit wt: 71.8 [...] Estimated Energy Needs Total Energy Estimated Needs 3655-8166 kcal/day Method for Estimating Needs 25-30 kcal/kg at 71.8 kg admit wt Estimated Protein Needs Total Protein Estimated Needs 86-108 g/day Method for Estimating Needs 1.2-1.5 g/kg Recommendations Recommended energy needs ADAT to cardiac with textures/consistencies per TRAINING REPRESENTATIVE. Upon diet adv ancement, encourage increased energy [...] (none) Author Type: Registered Nurse Filed: 10/24/17 1354 Date of Service: 10/24/17 135 Status: Signed Counter Pocket Sewer: Leia Saldana RN (Registered Nurse) Patient's spouse [...] Date of Service: 10/24/17 110 Status: Signed Counter Pocket Sewer: Jimmy Agarwal RN (Registered Nurse) [facility] med list complete. JIMMY AGARWAL RN onver ernesto Transaction, Provider Unknown - 10/24/2017 4:47 AM PDT Nurse Progress Note by Karen Estrada RN at 10/24/17 7425 Author: Karen Estrada RN Service: (none) Author Type: Registered Nurse Filed: 10/24/17 0451 Date of Service: 10/24/17 096 Status: Signed Counter Pocket Sewer: Karen Estrada RN (Registered Nurse) Pt. A&Ox4. [...] 10/23/172335 Date of Service: 10/23/172331 Status: Signed Counter Pocket Sewer: Karen Estrada RN (Registered Nurse) Pt arrived [...] 10/23/172206 Date of Service: 10/23/172206 Status: Signed Counter Pocket Sewer: Helen Soto RPH (Pharmacist) Renal Dosing Monitoring: [...] | | | | | | [place] [address] | | | | | | [phone] | | | | | | | | +--------+---------+ + + + | 05/19/ | Office | Cardiology | Cecilia Mccoy, | | | 2019 | Visit | | MD Alayna SHEPPARD | | | | | | [place] | | | | | | [id number] | | | | | | | [...] | + + + | PAVITHRA Sidhu IALYN 1945 72 years Male XR CHEST 2 [...] | | | | | performed at [facility], [address] | | | | | | [facility], | | | | | | [place] [address] | | | | | |MICRO | | | | | |NORMAL PLT MORPH | | | | | |Testing performed at [facility], [address] [facility], [place] [address] | | | | | | | [...] | | | | | performed at [facility], [address] | | | | | | [address], | | | | | | [place] [address] | | | | + + + [...] | | | | | [place] [address] | | | | + + + [...] EXTERNAL | | | | performed at [facility], [address] | | LAB | | | | [address], | | | | | | [place] [address] | | | | + + + [...] | | | External | performed at [facility], [address] | | LAB | | | | [address], | | | | | | [place] [address] | | | | + + + [...] | | | B-12 | performed at [facility], [address] | pg/mL | LAB | | | | [address], | | | | | | [place] [address] | | | | + + + [...] | | | | | performed at [facility], [facility] [address] | | | | | | [facility], | | | | | | [place] [address] | | | | | |ANISO | | | | | |NORMAL PLT MORPH | | | | | |Testing performed at [facility], [facility] [place] [address] | | | | | | | [...] | | | | | performed at [facility], [address] | | | | | | [facility], | | | | | | [place] [address] | | | | + + + [...] | | femoral access was obtained. A 5-Jamaican sheath was introduced | | | without any difficulty. A 0.035 wire was used and advanced under | | | fluoroscopic guidance into the ascending aorta. A 5-Jamaican JL4 | | | catheter was used [...] was done with a | | | 5-Jamaican multipurpose catheter that selectively engaged the right SVG | | | to RCA graft. Multiple views were obtained. Exchange over the wire | | | was done with 5-Jamaican AL1 catheter that selectively engaged the SVG [...] needle, right femoral access was obtained. A 5-Jamaican sheath | | was introduced without any difficulty. A 0.035 wire was used and advanced | | under fluoroscopic guidance into the ascending aorta. A 5-Jamaican JL4 | | catheter was used and [...] over the wire was done with a 5-Jamaican | | multipurpose catheter that selectively engaged the right SVG to RCA graft. | | Multiple views were obtained. Exchange over the wire was done with | | 5-Jamaican AL1 catheter that selectively engaged the SVG [...] Earlier chest | | | radiograph. FINDINGS: Sales Agent Trading Stamps demonstrates cardiomegaly, sternal | | | wires [...] EXAMINATION: Earlier chest radiograph. | | FINDINGS: Sales Agent Trading Stamps demonstrates cardiomegaly, sternal wires and dense reticular [...] Excursion: | | | 2.29 cm E-F Maui: 0.09 m/s AV maxP.18 mmHg AV meanPG: [...] TR Vmax: 3.04 m/s TV A Ed: | | | 0.00 m/s TV Dec Maui: 3.93 m/s2 TV Dec Time: 207.73 ms TV E | | | Ed: 0.56 m/s TV E/A Ratio: 69.55 Doctor Of Osteopathy: CM | | | Authenticated by: Cecilia Youngduncan Report Date/Time: 10-24-2017 13:7:33 | | | | | + + + + + | Procedure Note | + + | Diogo Harris Conversion - 10/29/2018 4:21 AM PDT Patient Name: Raegan ROSE of | | : 1945 Performing Physician: Cecilia | | Hectorduncan INDICATIONS------ | | -----sob,h/o 4 cabg CONCLUSIONS [...] mlLAESV Index (A-L): 41.48 ml/m2LAAs A2C: 17.05 py6CGPNS A-L A2C: 48.56 | | mlLALs A2C: 5.08 cmLAAs A4C: 26.95 dw4CTSTN A-L A4C: 95.07 mlLALs A4C: 6.48 cmAo | | Diam: 4.03 cmAV Cusp: 1.91 cmLA Diam: 4.92 cmLA/Ao: 1.22D-E Excursion: 2.29 | | cmE-F Maui: 0.09 m/Leigha maxP.18 mmHgAV meanP.51 mmHgAV Vmax: 1.59 m/Leigha | | Vmean: 1.23 m/Leigha VTI: 28.06 cmAVA Vmax: 3.26 cm2AVA (VTI): 3.35 [id number] Vmax: | | 0.00 cm2/m2AVAI (VTI): 0.00 [...] 3.04 m/sTV A Ed: 0.00 m/sTV Dec Maui: 3.93 m/s2TV | | Dec Time: 207.73 msTV E Ed: 0.56 m/sTV E/A Ratio: 69.55 Doctor Of Osteopathy: | | CMAuthenticated by: [facility] Hospitalort Date/Time: 10-24-2017 13:7:33 IMPRESSION: 1. | | [...] | |D-E Excursion: 2.29 cm | |E-F [place]aui: 0.09 m/s | |AV maxP.18 mmHg | [...] A Ed: 0.00 m/s | |TV Dec [place]i: 3.93 m/s2 | |TV Dec Time: 207.73 ms | |TV E Ed: 0.56 m/s | |TV E/A Ratio: 69.55 | | | |Doctor Of Osteopathy: CM | |Authenticated by: Cecilia Mccoy | [...] | | | | | | ACUTE [place] CALLED NURSING | | | | | | UNITREAD BACK RESULTS | | | | | | VERIFIEDJESSICA W IN 8RP | | | | | | AT 0658 BY TDTesting | | | | | | performed at [facility];[address] | | | [address] | [address];[place], [place] | | | | | | [address] | | | | + + + [...] | | | | | | ACUTE [place] CALLED NURSING | | | | | | UNITREAD BACK RESULTS | | | | | | REENA Rodríguez IN 8RP | | | | | | AT 0250Testing performed | | | | | | at [facility];[address];[place] [address] | | | | + + + [...] | | | | | performed at [facility];[address] | | | | | | [facility];[place], [place] | | | | | | [address] | | | | + + + [...] | | | | | performed at [facility], [address] | | | | | | [facility], | | | | | | [place] [address] | | | | | |TEARDROP | | | | | |NORMAL PLT MORPH | | | | | |Testing performed at [facility], [address] [facility], [place] [address] | | | | | | | [...] | | | | | [place] [address] | | | | + + + [...] | | | | | [place] [address] | | | | + + + [...] EXTERNAL | | | | performed at [facility], [address] | | LAB | | | | Glenn Carrera, | | | | | | [place] [address] | | | | + + + [...] | | | Cholesterol | performed at [facility], [address] | | LAB | | | , | Cameronrenetta Carrera, | | | | | Calculated, | [place] [address] | | | | | External | [...] | | | | | performed at [facility], [address] | | | | | | [facility], | | | | | | [place] [address] | | | | + + + [...] EXTERNAL | | | | performed at [facility];[address] | mmol/L | LAB | | | | [address] Car[address];[place] | | | | | | [address] | | | | + + + [...] | | | | | | ACUTE [place] CALLED TO | | | | | | KIMBERLEE Rodríguez ON 8RP AT 2255 | | | | | | BY CD, READ BACKTesting | | | | | | performed at [facility];[address] | | | | | | [address];[place], [place] | | | | | | [address] | | | | + + + [...]
--- OUTSIDE RECORDS SUMMARY | ~2019-02-20 | XMS | Encounter Summary ---
Demographics + + + | Address | [address] | | | [place] [address] | + + + | Home Phone | | + + + | Preferred Language | Unknown | + + + | Marital Status | | + + + | Jew Affiliation | 1028 | + + + | Race | Unknown | + + + | Ethnic Group | Unknown | + + + Author + + + | Author | [facility] | | | and [place] | + + + | Organization | [facility] | | [...] [place] | | | | | [address] | | + + + + + Care Team Providers + +------+ + | Care Adult Nurse Practitioner Name | Role | Phone | + +------+ + | Maycol Knutson MD | PCP | | + +------+ + Reason for Visit +--------+ + | Reason | Comments | +--------+ + | Other | sleep results | +--------+ + Encounter Details +--------+---------+ + + + | Date | Type | Department | Care Team | Description | +--------+---------+ + + + | 09/09/ | Office | [facility] [place] | Sharan Bruno | NOLA (obstructive | | 2014 | Visit | SLEEP DISORDER [address] | MD [address] | sleep apnea) | | | | [address] | [address] [place] | (Primary Dx); | | | | [place] [address] | [place] [address] | Central sleep apnea | | | | [phone] | [phone] | due to Victoriano-Tomas | | | | | | respiration | +--------+---------+ + + [...] + + + | Blood Pressure | 128/72 | 09/09/2014 2:28 PM | | | | | PDT | | + + + + + | Pulse | 95 | 09/09/2014 2:28 PM | | | | | PDT | | + + + + + | Temperature | - | - | | + + + + + | Respiratory Rate | 16 | 09/09/2014 2:28 PM | | | | | PDT | | + + + + + | Oxygen Saturation | 97% | 09/09/2014 2:28 PM | | | | | PDT | | + + + + + | Inhaled Oxygen | - | - | | | Concentration | | | | + + + + + | Weight | 81.3 kg (179 lb 4.8 | 09/09/2014 2:28 PM | | | | oz) | PDT | | + + + + + | Height | - | - | | + + + + + | Body Mass Index | 27.26 | 11/18/2013 10:00 AM | | | | | PDT | | + + + + + documented in this encounter Progress Notes Sharan Bruno Jr., MD - 09/09/2014 10:25 AM PDTThe patient comes in for follow-up after undergoing diagnostic polysomnography. My interpretation of the patient's sleep study, which I have reviewed with the patient, is as follows: Polysomnogram Report on German Rose performed on 08/30/2014 Clinical Information: German Rose is a 69 y.o. male who underwent diagnostic nocturna l polysomnography on 08/30/2014. The patient has a history of atrial fibrillation and heart f ailure. PSG performed on 12/22/2012 demonstrated an AHI of 77.4. Of the 419 apneas, 380 were central apneas in a Victoriano-Tomas pattern. He underwent ASV-BPAP titration on 01/21/2013 and has been on ASV-BPAP (EPAP 4cm, PSmin0, PSmax 21cm) since then. Because of the recently repo rted SERVE-HF study indicating that ASV-BPAP may actually increase cardiac mortality in krishna ents with heart failure (EF < 45%), ASV-BPAP was discontinued and the current study is now d one off of therapy. A 2-D Echocardiogram was obtained on 08/12/2014 which demonstrates an EF currently of 60-65%. Technical Information: Please see technical data stored as Polysomnography under "Media" se ction in the [employer] EMR. Definitions (The AASM Manual for the Scoring of Sleep and Associated Events, Version 2.0; 2 012): Apnea: There is a drop in the peak signal excursion by 90% or greater of pre-event baseline using an oronasal thermal sensor (diagnostic study), PAP device flow (titration study), or an alternative apnea sensor (diagnostic study); the duration of the 90% or greater drop in s ensor signal is 10 seconds or longer. Obstructive Apnea: Event associated with continued or increased inspiratory effort througho ut the entire period of absent airflow. Central Apnea: Event associated with absent inspiratory effort throughout the entire period of absent airflow. Mixed Apnea: Event associated with absent inspiratory effort in the initial portion of the event followed by resumption of inspiratory effort during the second portion of the event. Hypopnea: Nasal pressure excursion drop by 30% or more from baseline, lasting at lease 10 s econds and 90% of the event's duration meets this amplitude criteria. This is associated wit h a 4% or greater desaturation from pre-baseline. Respiratory Event Related Arousal: A sequence of breaths lasting 10 seconds or longer juan cterized by increasing respiratory effort or by flattening of the inspiratory portion of the nasal pressure (diagnostic study) or PAP device flow (titration study) waveform leading to arousal from sleep when the sequence of breaths does not meet criteria for an apnea or hypop yahaira. Sleep Architecture: Lights out was recorded at 2215 hundred hours on 08/30/2014 and lights on was recorded at 0606 hundred hours on 08/31/2014. The latency to sleep onset was short at 2.5 minutes. The patient slept for 395 minutes out of 470 minutes of study time resulting an a sleep efficiency that was mildly decreased at 84 %. The amount of N1 sleep was normal occ upying 3.8% of the Total Sleep Time; the amount of N2 sleep was elevated occupying 85.3% of the Total Sleep Time; the amount of N3 sleep was low occupying 2.1% of the Total Sleep Time; the amount of REM sleep was low occupying 7.1% of the Total Sleep Time and the latency to R EM sleep was shoirt at 43.5 minutes. Sleep in the following positions was recorded: left lateral decubitus 0%, right lateral dec ubitus 92.3%, supine 7.7%, prone 0%. Sleep was severely fragmented; the Arousal Index was 70.9. The patient reported this to be a better than "usual" night's sleep. Cardiopulmonary Monitoring: The heart rate averaged in the 80's beats per minute. Mild rate variability was noted. The rhythm was atrial fibrillation. In the course of the evening there were 15 obstructive apneas, 9 mixed apneas, 35 central a pneas, 272 hypopneas, and 78 Respiratory Effort Related Arousals (RERA's). The Respiratory D isturbance Index (RDI) was elevated at 62.1; the Apnea-Hypopnea Index was elevated at 50.3; the Apnea Index (AI) was elevated at 9. The respiratory events were not clinically significa ntly sleep stage dependent. The respiratory events were not clinically significantly positio nal. The number of central apneas was much less than in 2013 although they still appeared in a Victoriano-Tomas pattern. The respiratory events occasioned severe sleep fragmentation; the Respiratory Arousal Index was 50.7. The staci oxygen saturation was 80% and the patient spent 30 minutes with an oxygen saturat ion of less than 88%. ETCO2 was normal. Limb Movement Monitoring: There were 0 Periodic Limb Movements (PLMS Index of 0) of which 0 were associated with arousals; the PLMS Arousal Index was normal at 0. Interpretation: This polysomnogram is abnormal secondary to: Obstructive Sleep Apnea is diagnosed and is associated with severe sleep fragmentation and significant oxygen desaturation. Mild Central Sleep Apnea secondary to Victoriano-Tomas Respiration is present. Suggestions: 1. The principles of sleep hygiene should be reviewed with the patient. 2. PSG guided CPAP titration is advised. If central apneas persist, ASV-BPAP could be consi dered in view of the normal Ejection Fraction noted on recent 2-D Echocardiogram done in July 2014. He also had a 2-D Echocardiogram performed which demonstrated the following: ECHOCARDIOGRAM REPORT STUDY DATE: 08/12/2014 PATIENT NAME: German Rose : 1945 PCP: Maycol Knutson MD CLINICAL HISTORY/DIAGNOSIS: A-fib, heart failure, ef A transthoracic echocardiogram with M-mode, pulsed-wave and color Doppler was performed with standard views obtained. The technical quality of this examination is adequate. The heart rhythm during the echo is atrial fibrillation. The M-mode, two-dimensional, color flow and spectral Doppler data were reviewed and support the following interpretation: Interpretation: Left Atrium: Left atrial size is mildly dilated. Left ventricle: Left ventricular size is normal with wevx-yu-qwnhrner concentric left ventricular hypertrophy, and normal left ventricular systolic function. The estimated ejection fraction is 60-65 %. Undetermined diastolic function. Aortic root: Aortic root is normal. Right Atrium: Right atrial sizes normal. Right ventricle: Right ventricular size is normal with normal wall thickness and normal right ventricular systolic function. Pericardium: Pericardium is normal. Pulmonary artery: Pulmonary artery is normal. mild pulmonary hypertension with a peak systolic pressure of 35-40 mmHg. Aortic valve: Aortic valve is trileaflet with mild thickening and opens adequately. There is a mild to moderate aortic valve insufficiency. Mitral valve: Mitral valve is normal. mild mitral regurgitation. Pulmonic valve: Pulmonic valve is normal. Tricuspid valve: Tricuspid valve is normal. mild tricuspid valve regurgitation. Vena cava: The inferior vena cava is normal. There is greater than 50% inspiratory collapse of the IVC. IMPRESSIONS: 1. Mild left atrial dilatation. 2. Zmbp-ut-iksgrohc concentric left ventricular hypertrophy. No LVOT obstruction noted. Left ventricular systolic dysfunction is preserved. LVEF is 60-65%. 3. Mildly thickened trileaflet aortic valve with adequate opening. There is a mild to moderate aortic valve insufficiency. 4. Mild mitral valve regurgitation. 5. Mild tricuspid valve regurgitation. 6. Mild pulmonary hypertension with a peak systolic pressure of 35-40 mmHg. 7. Normal IVC with normal respiratory collapse. Measurements: Height: 5'8'' Weight: 182lbs Aortic root: 31 mm Aortic cusp sep: 20 mm LA: 2d 51 mm IVS-diastole: 22 mm IVS-systole: 19 mm LVPW diastole: 14 mm LVPW systole: 16 mm LV diameter-diastole: 47 mm LV diameter-systole: 29 mm Fractional shortenin % PFV aortic valve: m/s MPG mitral valve: mmHg PFV TR jet: 2.84 m/s RA/RV PP mmHg LA volume: 135 mL LA index: 38 mL/m2 Mitral Inflow DT: ms IVRT: ms Valsalva: PWDTI S wave: cm/s PWDTI E wave: cm/s PWDTI A wave: cm/s E/A Ratio: E/E Ratio: Signed by: Kaitlynn Small MD [facility] 08/12/2014 9:20 He and his both note that he is feeling more fatigued and tired since stopping the ASV -BPAP. 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 Note that his ejection fraction was 60-65% and thus the SERVE-HF study does n ot apply to him. I am advising that he continue on his current ASV-BPAP. He states that it d oes cause significant nasal/sinus dryness and he states that he has turned his heat and humi dity up as high as it will go. Even so, he uses virtually no water in the course of an eveni ng wearing the BPAP. I have suggested today that he take his unit by [place] to have them chec k it to assure that the heated humidity is properly functioning. I suspect that his nasal/si nus issues are likely secondary to lack of humidification from his ASV-BPAP. He does have an ENT appointment in the [facility] in 2 weeks - we will find out with whom he has an appointm ent and make sure that his sleep records are forwarded to that office. P: Restart ASV-BPAP at his previous settings. [place] to check his ASV-BPAP to assure that the heated humidification system is properl y functioning. All sleep records will be sent to his ENT MD's - they will find the names and addresse s. F/u in [facility] in 4 weeks. Today, 15minutes was spent face to face with the patient; the majority of time was spent co unseling regarding sleep issues. documented in this encounter Plan of Treatment [...] | | | | | | [place] [address] | | | | | | [phone] | | | | | | | | +--------+---------+ + + + | 05/19/ | Office | Cardiology | Cristian Mccoy, | | | 2019 | Visit | | MD [address] [place] | | | | | | [place] | | | | | | [id number] | | | | | | | | +--------+---------+ + + + documented as of this encounter Visit Diagnoses + + | Diagnosis | + + | NOLA (obstructive sleep apnea) - Primary Obstructive sleep apnea (adult) (pediatric) | + + | 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 Victoriano-Tomas respiration | + + documented in this encounter
--- OUTSIDE RECORDS SUMMARY | ~2019-02-20 | XMS | Encounter Summary ---
Demographics + + + | Address | [address] | | | [place] [address] | + + + | Home Phone | | + + + | Preferred Language | Unknown | + + + | Marital Status | | + + + | Pentecostalism Affiliation | 1028 | + + + [...] [place] | | | | | [address] | | + + + + + Care Team Providers + +------+ + | Care Drawer In Hand Name | Role | Phone | + +------+ + | Maycol Knutson MD | PCP | | + +------+ + Reason for Visit +--------+ + | Reason | Comments | +--------+ + | Apnea | | +--------+ + Encounter Details +--------+---------+ + + + | Date | Type | Department | Care Team | Description | +--------+---------+ + + + | 07/01/ | Office | [facility] [place] | Aleksandar Tejeda PA | NOLA treated with | | 2015 | Visit | SLEEP DISORDER [address] | [address] | BiPAP (Primary Dx); | | | | [address] [place] | [place] | Victoriano-Wallace | | | | [place] [address] | [address] | respiration | | | | [phone] | | | +--------+---------+ + + + [...] + + + | Blood Pressure | 120/68 | 07/01/2014 10:07 AM | | | | | PDT | | + + + + + | Pulse | 68 | 07/01/2014 10:07 AM | | | | | PDT | | + + + + + | Temperature | - | - | | + + + + + | Respiratory Rate | 16 | 07/01/2014 10:07 AM | | | | | PDT | | + + + + + | Oxygen Saturation | 98% | 07/01/2014 10:07 AM | | | | | PDT | | + + + + + | Inhaled Oxygen | - | - | | | Concentration | | | | + + + + + | Weight | 80.8 kg (178 lb 3.2 | 07/01/2014 10:07 AM | | | | oz) | PDT | | + + + + + | Height | - | - | | + + + + + | Body Mass Index | 27.1 | 11/18/2013 10:00 AM | | | | | PDT | | + + + + + documented in this encounter Progress Notes Aleksandar Tejeda PA - 07/01/2014 10:08 AM PDT Subjective: Patient ID: German Rose is a 69 y.o. male. HPI last office visit was: 12/22/2013 date of polysomnography: 12/22/2012 AHI: 77.4 RDI: 77.4 O2%: 86% with 15.8 minutes below 88% Machine type: Respironics ASV BiPAP with nasal mask ([place]) obtained from: [employer] in [place] pressure: EPAP = 4cm;PSmin=0cm;PSmax=20 cm;backup rate=auto Nights using BiPAP: 1564 163/191 % of nights >4 hours: 3.1% 43% average usage (all nights): 0:27 0:28 3:26 average usage (nights used): 2:34 2:03 4:02 AHI: 0.0 German comes in for BiPAP compliance. He continues to have problems with congestion, which h as always caused problems with his compliance. This has improved since he started Sudafed. He has been able to wear it for longer durations, but he is still working to develop it int o a regular part of his sleep routine. He is sleeping much better when using his BiPAP and has noticed that he feels better during the day. When he takes his Sudafed, he does well wi th his compliance. He has forgotten on many nights. He has also had significant shoulder p ain, which has distracted him on many nights from using his BiPAP. I have discussed the download in detail. This shows that his sleep apnea is controlled, wi th an AHI of 0.0. It also shows that his leaks are well controlled. He has not met the com pliance standard of wearing his BiPAP for >4 hours for 70% or more nights during at least a thirty day period. Review of Systems Objective: Physical Exam Assessment: Problem #1: OBSTRUCTIVE SLEEP APNEA (ICD 9-327.23) This is controlled with BiPAP. His compliance has improved since he began taking Sudafed f or his sinus congestion, but he still struggles with wearing it consistently. Problem#2: VICTORIANO-WALLACE BREATHING (ICD 9-786.04) See above. Plan: He is to continue with his BiPAP indefinitely. I have recommended that he work toward wear ing his BiPAP 100% of the time he is asleep. I will follow up with him in 2 months, sooner prn. Fifteen minutes were spent [id number] , with the majority of time spent in [...] | | | | | | [place] [address] | | | | | | [phone] | | | | | | | | +--------+---------+ + + + | 05/19/ | Office | Cardiology | Cristian Mccoy, | | | 2019 | Visit | | MD [address]ayna [address] | | | | | | [place] | | | | | | [address] | | | | | | | | +--------+---------+ + + + documented as of this encounter Visit Diagnoses + + | Diagnosis | + + | NOLA treated with BiPAP - Primary | + + | Victoriano-Wallace respiration | + + documented in this encounter"
--- OUTSIDE RECORDS SUMMARY | ~2019-02-20 | XMS | Encounter Summary ---
Demographics + + + | Address | [address] | | | [place] [address] | + + + | Home Phone [...] [place] | | | | | [address] | | + + + + + Care Team Providers + +------+ + | Care [place] Clerk Name | Role | Phone | [...] + + | 07/01/ | Office | [facility] [place] | Aleksandar Tejeda PA | NOLA treated with | | 2015 | Visit | SLEEP DISORDER [address] | [address] | BiPAP (Primary Dx); | | | | [address] [place] | [place] | [place] | | | | [place] [address] | [address] | respiration | | | | [phone] | | | +--------+---------+ + + + [...] BiPAP with nasal mask (Cary) obtained from: [employer] in [place] pressure: EPAP = 4cm;PSmin=0cm;PSmax=20 cm;backup rate=auto Nights [...] months, sooner prn. Fifteen minutes were spent [id number] , with the majority of time spent [...] | | | | | | [place] [address] | | | | | | [phone] | | | | | | | | +--------+---------+ + + + | 05/19/ | Office | Cardiology | Cristian Mccoy, | | | 2019 | Visit | | MD [address]ayna [address] | | | | | | [place] | | | | | | [address] | | | | | | | | +--------+---------+ + + + documented as of this encounter Visit Diagnoses + + | Diagnosis | + + | NOLA treated with BiPAP - Primary | + + | Victoriano-Wallace respiration | + + documented in this encounter"
--- OUTSIDE RECORDS SUMMARY | ~2019-02-20 | XMS | Encounter Summary ---
Demographics + + + | Address | [address] | | | [place] [address] | + + + | Home Phone | | + + + | Preferred Language | Unknown | + + + | Marital Status | | + + + | Jew Affiliation | LUT | + + + [...] Team Providers + +------+ + | Care Functional Tester Name | Role | Phone | + +------+ + | Maycol Knutson MD | PCP | | + +------+ + Encounter Details +--------+ + + + + | Date | Type | Department | Care Team | Description | +--------+ + + + + | 09/15/ | Molecular Genetic Pathologist | Otolaryngology | Alexei De | Laryngeal cancer | | 2009 | | Laryngology Services | MD Timbo [address] | ([facility]); Pharyngeal | | | | at [facility] [address] | [address] | dysphagia | | | | [address] | [place], [place] | | | | | Mailcode: PV01 | [address] | | | | | [facility] | [phone] | | | | | [place], [place] | | | | | | [address] | | | | | | [phone] | | | +--------+ + + + [...] Not on filedocumented as of this encounter Results MODIFIED BARIUM SWALLOWING (11/30/2009 10:14 AM PDT) + + + + + + | Component | Value | Ref Range | Performed | Pathologist | | | | | At | Signature | + + + + + + | ESOPHAGUS | Examination: Modified | | | | | W/BARIUM/FO | barium swallowing study. | | | | | OD/PHONAT | Technique | | | | | | andfindings: The study | | | | | | was performed in | | | | | | conjunction with the | | | | | | [facility] speechpathologist. | | | | | | The patient drank a | | | | | | variety of barium | | | | | | impregnatedliquids and | | | | | | solids and swallowed a | | | | | | barium tablet using | | | | | | fluoroscopicobservation. | | | | | | There was no delay in | | | | | | initiating the primary | | | | | | propulsivewave on | | | | | | swallowing. The | | | | | | patient swallowed thin | | | | | | barium withoutdifficulty | | | | | | with no obstruction of | | | | | | flow. With thicker | | | | | | texture bariumliquids, | | | | | | there was mild partial | | | | | | delay and about the C6 | | | | | | levelassociated with a | | | | | | mild short segment of | | | | | | circumferential | | | | | | narrowing ofthe proximal | | | | | | esophagus at this level | | | | | | but no sign of | | | | | | extravasation.There is | | | | | | no evidence for | | | | | | obstruction of flow of | | | | | | solid materials. | | | | | | Theingested barium | | | | | | tablet passed through | | | | | | the oropharynx, | | | | | | hypopharynx andthoracic | | | | | | esophagus but there was | | | | | | delay in passage at | | | | | | thegastroesophageal | | | | | | junction. See formal | | | | | | esophagram report. | | | | | | Impression: No sign of | | | | | | extravasation or | | | | | | aspiration. Short | | | | | | segment ofnarrowing of | | | | | | the proximal esophagus | | | | | | at the C6 level | | | | | | perhapsaccounting for | | | | | | some retropulsion of | | | | | | thicker barium liquids | | | | | | throughthis segment. | | | | | | Delay in passage of | | | | | | barium tablet at | | | | | | thegastroesophageal | | | | | | junction. I have | | | | | | personally viewed this | | | | | | procedure/exam and | | | | | | reviewed this report. | | | | | | Author: HETAL CAREY | | | | | | Priyanka HUSSEINReviewer: | | | | | | HETAL HUSSEIN M.D. | | | | | | STATUS FINAL / DruV | | | | | | HETAL HUSSEIN | | | | + + + + + + + + | Specimen | + + | | + + + +---------+ + + | Performing | Address | City/State/Zipcode | Phone Number | | Organization | | | | + +---------+ + + | [place] [facility] | | | | [facility] | | | | + +---------+ + + documented in this encounter Visit Diagnoses + + | Diagnosis | + + | Laryngeal cancer (HCC) Malignant neoplasm of larynx, unspecified site | + + | Pharyngeal dysphagia Dysphagia, pharyngeal phase | + + documented in this encounter"
--- OUTSIDE RECORDS SUMMARY | ~2019-02-20 | XMS | Encounter Summary ---
Demographics + + + | Address | [address] | | | [place] [address] | + + + | Home Phone | | + + + | Preferred Language | Unknown | + + + | Marital Status | | + + + | Taoism Affiliation | LUT | + + + | Race | White | + + + | Ethnic Group | Not or | + + + Author + + + | Author | [facility] | + + + | Organization | [facility] | + + + | Address | Unknown | + + + | Phone | Unavailable | + + + Support + + +---------+ + | Name | Relationship | Address | Phone | + + +---------+ + | Blossom Rose | ECON | Unknown | | + + +---------+ + Care Team Providers + +------+ + | Care Barber Apprentice Name | Role | Phone | [...] as of this encounter Progress Notes Interface, Choker Hooker In - 03/03/2006 3:11 AM PSTCLINIC DATE: 09/29/1998 OTOLARYNGOLOGY CLINIC Mr. Rose is seen back today for a preoperative discussion and repeat dilation. He has a full understanding of the procedure from his previous experience, and we will proceed. Consent was signed. Dylan Arthur M.D. Lan Manager, Otolaryngology Head and Neck Surgery KRIS/klaus Tdocumented in this encounter Plan of Treatment Not on filedocumented as of this encounter Visit Diagnoses Not on filedocumented in this encounter"
--- OUTSIDE RECORDS SUMMARY | ~2019-02-20 | XMS | Encounter Summary ---
Demographics + + + | Address | [address] | | | [place] [address] | + + + | Home Phone [...] + + + | Author | [facility] | + + + | Organization | [facility] | + + + | Address | Unknown | + + + | Phone | Unavailable | + + + Support + + +---------+ + | Name | Relationship | Address | Phone | + + +---------+ + | Blossom Rose | ECON | Unknown | | + + +---------+ + Care Team Providers + +------+ + | Care Double End Tenoner Operator Name | Role | Phone | + +------+ + | Maycol Knutson MD | PCP | | + +------+ + Reason for Visit Speech Therapy (Routine) +--------+--------+ + + + + | Status | Reason | Specialty | Diagnoses / | Referred By | Referred To | | | | | Procedures | Contact | Contact | +--------+--------+ + + + + | Closed | | Speech | Diagnoses | Kenisha, | Ent Speech | | | | Therapy | Pharyngeal | Alexei Izquierdo, | [address] | | | | | dysphagia | MD [address] | [address] | | | | | Procedures | [address] | [address] | | | | | CONSULT TO | [address] | Mailcode: | | | | | ENT SPEECH | [place], [place] | [address] | | | | | THERAPY | [address] | Physician's | | | | | | Phone: | [place] | | | | | | [phone] | [place], [place] | | | | | | Fax: | [address] | | | | | | [phone] | Phone: | | | | | | | [phone] | | | | | | | Fax: | | | | | | | [phone] | +--------+--------+ + + + + Encounter Details +--------+---------+ + + + | Date | Type | Department | Care Team | Description | +--------+---------+ + + + | 11/30/ | Office | Otolaryngology | Cj Kiser, | Dysphagia, | | 2009 | Visit | Speech Therapy | THERMODYNAMICS ENGINEER [address] | pharyngeal phase; | | | | Services at [facility] | [address] | Dysphagia, | | | | [address] | [place] [address] | pharyngoesophageal | | | | [address] Mailcode: | [phone] | phase | | | | [address] [facility] | | | | | | [address] [place], | | | | | | [place] [address] | | | | | | [phone] | | | +--------+---------+ + + + [...] documented as of this encounter Progress Notes Cj Kiser SLP - 11/30/2009 9:01 PM PDTClinic: [facility] Referring Physician: ALEXEI HATFIELD Otolaryngology [address] [place] [address] PCP: Maycol Knutson MD Medical Diagnosis: Dysphagia, 787.20 Date of Onset: 09/15/09 Treatment Diagnosis: Dysphagia, 787.24 Start of Care Date: 11/30/2009 Duration of session: 60 minutes SUBJECTIVE: German Rose is a 64 y[address] Dr. Hatfield seen for evaluation of his swall owing complaints. CURRENT COMPLAINTS: 1. Choking very occasionally on foods and liquids (inc water, rice, pork, chicken) 2. Residue for foods which he must wash down 3. Sensation of liquids becoming stuck at the lower esophagus 4. One episode of choking on a pill 5. GERD - controlled s/p Sudarshan and with Prilosec DESCRIPTION OF PROBLEM: The patient reports that his dysphagia symptoms have worsened over the last year. They are intermittent. The patient denies change in respiratory status, weigh t loss, pain on swallowing, difficulty chewing and regurgitation of foods. Pt has a past medical history of Larynx cancer; Radiation fibrosis; Glottic stenosis; SD (m yocardial infarction); PUD (peptic ulcer disease); Fibromyalgia; Depression; and Nephrolithi asis. Pt has past surgical history that includes HX EXTENDED VERTICAL HEMILARYNGECTOMY; HX STENOS IS DILATION; sudarshan fundoplication; HX DML BX (09/1997); and HX LARYNGOTRACHEOPLASTY (1999). DIETARY STATUS: Current diet: Regular, no restrictions. He must chew food well and wash it down, however. WEIGHT: The patient's weight today is 215 lbs SOCIAL HISTORY: The patient currently lives with their spouse in [place], [place]. COMMUNICATION/SPEECH STATUS: The patient communicates verbally. Speech quality was noted to be normal and Always understandable (PSS-Speech 100). Voice quality was significantly hoars e and reduced in strength. In terms of respiration, the patient is breathing easily at rest. ORAL-MOTOR EXAMINATION: WFL MODIFIED BARIUM SWALLOW STUDY: Prior to starting the study, the patient's name and were verified. The patient was evaluated in the [facility] 10th floor Radiology suite & was observed i n the lateral and anteroposterior planes while standing. Consistencies/materials administere d included: thin liquids, nectar thick liquids, honey, pudding, barium pill, fruit cocktail mixed with barium and lissy cracker coated with barium. The patient tolerated the exam well . Oral Phase: Oral bolus control and preparation were normal. Pharyngeal Phase: Initiation of the pharyngeal phase was timely. Once initiated, laryngeal elevation was moderately reduced resulting in moderately reduced epiglottic deflection (to the horizontal only but epiglottis to arytenoid contact was noted to occur). Velopharyngeal closure was normal. Tongue base to pharyngeal wall contact was within functional limits. Fo r nectar thick liquids there was noted to be trace penetration at the start of the study but otherwise no penetration, aspiration or significant residue. For liquid and food there was noted to be no penetration or aspiration and no significant residue after the swallow. In th e rin-posterior view, the swallow was noted to be asymmetric with significant bulk on the right likely due to post-operative reconstruction. The bolus transited primarily on the lef t. Esophageal Phase: Cricopharyngeal opening was noted to be mildly reduced and there is the suggestion of a stricture at the level of C6 with some retention and backflow of barium. Alt ernatively this could be muscular, however. The barium pill transited to the LES where it be came lodged for some time. Tertiary contractions and a paraesophageal hernia were seen, per the radiologist. Please see the radiologist s report for additional information. PATIENT EDUCATION & TREATMENT: Subsequent to the examination the findings were reviewed wit h the patient and spouse and Dr. Hatfield. He will see them today also and discuss treatme nt options. ASSESSMENT: 1. Functional oropharyngeal swallowing 2. Possible stricture vs spasm at level of C6 (mild) 3. Delayed transit of barium through LES due to hernia/previous Sudarshan FOLLOW-UP: The patient was advised to follow-up with us as needed. Thank you for this consult. Cj Kiser, MS, CCC-THERMODYNAMICS ENGINEER [facility] Dept. of Otolaryngology, [address] [facility] [place] [address] documented in this en counter Plan of Treatment Not on filedocumented as of this encounter Procedures + +--------+ + + + | Procedure Name | Priori | Date/Time | Associated Diagnosis | Comments | | | ty | | | | + +--------+ + + + | OH EVAL,SWALLOW | Routin | 11/30/2009 | Dysphagia, | | | FUNCTION,CINE/VIDEO | e | 9:02 PM | pharyngeal phase | | | RECORD | | PDT | Dysphagia, | | | | | | pharyngoesophageal | | | | | | phase | | + +--------+ + + + | OH EVAL,ORAL & | Routin | 11/30/2009 | Dysphagia, | | | PHARYNGEAL SWALLOW | e | 9:02 PM | pharyngeal phase | | | FUNCTION | | PDT | Dysphagia, | | | | | | pharyngoesophageal | | | | | | phase | | + +--------+ + + + documented in this encounter Visit Diagnoses + + | Diagnosis | + + | Dysphagia, pharyngeal phase | + + | Dysphagia, pharyngoesophageal phase | + + documented in this encounter"
--- OUTSIDE RECORDS SUMMARY | ~2019-02-20 | XMS | Encounter Summary ---
Demographics + + + | Address | [address] | | | [place] [address] | + + + | Home Phone [...] + + + | Author | [facility] | + + + | Organization | [facility] | + + + | Address | Unknown | + + + | Phone | Unavailable | + + + Support + + +---------+ + | Name | Relationship | Address | Phone | + + +---------+ + | Blossom Rose | ECON | Unknown | | + + +---------+ + Care Team Providers + +------+ + | Care Furniture Shampooer Name | Role | Phone | + [...] as of this encounter Progress Notes Interface, Hose Mender In - 03/16/2006 3:04 AM PSTCLINIC DATE: [...] M.D. KRIS/minerva cc: AGUSTINA QUEZADA MD [address] [facility] [address] MAYCOL CALLAHAN MD [address] [id number] signed by Interface, Hose Mender In at 03/16/2006 3 :04 AM PSTdocumented in this encounter Plan of Treatment Not on filedocumented as of this encounter Visit Diagnoses Not on filedocumented in this encounter"
--- OUTSIDE RECORDS SUMMARY | ~2019-02-20 | XMS | Encounter Summary ---
Demographics + + + | Address | [address] | | | [place] [address] | + + + | Home Phone [...] Team Providers + +------+ + | Care Foxer Name | Role | Phone | + +------+ + | Maycol Knutson MD | PCP | | + +------+ + Encounter Details +--------+ + + + + | Date | Type | Department | Care Team | Description | +--------+ + + + + | 08/02/ | Results | Registration [id number] | | | | 1998 | Only | [address] | | | | | | Leonardo Mailcode: [id number] | | | | | | [place], [place] | | | | | | [address] | | | | | | [phone] | | | +--------+ + + + [...] | CHEMISTRY TESTS 4 | Routin | 08/02/1998 | | Results for this | | | e | 1:50 PM | | procedure are in the | | | | PDT | | results section. | + +--------+ + + + | CBC TESTS 2 | Routin | 08/02/1998 | | Results for this | | | e | 1:50 PM | | procedure are in the | | | | PDT | | results section. | + +--------+ + + + | COAGULATION TESTS 2 | Routin | 08/02/1998 | | Results for this | | | e | 1:50 PM | | procedure are in the | | | | PDT | | results section. | + +--------+ + + + documented in this encounter Results CHEMISTRY TESTS 4 (08/02/1998 1:50 PM PDT) + + + + + [...] + + + + | POTASSIUM, | 3.3 (L) | mmol/l | | | | PLASMA | | | | | | (LAB) | | | | | + + + + + + | CHLORIDE, | 101. | mmol/l | | | | PLASMA | | | | | | (LAB) | | | | | + + + + + + | TOTAL CO2, | 33. (H) | mmol/l | | | | PLASMA | | | | | | (LAB) | | | | | + + + + + + | BUN, PLASMA | 10. | mg/dL | | | | (LAB) | | | | | + + + + + + | CREATININE | 1.1 | mg/dL | | | | PLASMA | | | | | | (LAB) | | | | | + + + + + + | GLUCOSE, | 105. | mg/dL | | | | PLASMA | | | | | | (LAB) | | | | | + + + + + + | CALCIUM, | 9.5 | mg/dL | | | | PLASMA | | | | | | (LAB) | | | | | + + + + + + | MAGNESIUM,P | 1.7 | mg/dL | | | | LASMA | | | | | + + + + + + | PHOSPHORUS, | 3.3 | mg/dL | | | | PLASMA | | | | | | (LAB) | | | | | + + + + + + | ALBUMIN, | 4.1 | GM/DL | | | | PLASMA | | | | | | (LAB) | | | | | + + + + + + + + | Specimen | + + | | + + + + + + + | Performing | Address | City/State/Zipcode | Phone Number | | Organization | | | | + + + + + | [facility] | [address] | [place] [address] | | | PATHOLOGY | [address] | | | + + + + + COAGULATION TESTS 2 (08/02/1998 1:50 PM PDT) + + + + + + | Component | Value | Ref Range | Performed | Pathologist | | | | | At | Signature | + + + + + + | INR | 0.94 (L) | INR | | | + + + + + + | APTT | 30.3 | SECONDS | | | + + + + + + + + | Specimen | + + | | + + + + + + + | Performing | Address | City/State/Zipcode | Phone Number | | Organization | | | | + + + + + | [facility] | [address] | [place] [address] | | | PATHOLOGY | [address] | | | + + + + + CBC TESTS 2 (08/02/1998 1:50 PM PDT) + + + + + + | Component | Value | Ref Range | Performed | Pathologist | | | | | At | Signature | + + + + + + | WHITE CELL | 6. | K/CU MM | | | | COUNT | | | | | + + + + + + | RED CELL | 3.87 (L) | M/CU MM | | | | COUNT | | | | | + + + + + + | HEMOGLOBIN | 12.2 (L) | GM/DL | | | + + + + + + | HEMATOCRIT | 34.9 (L) | % | | | + + + + + + | MCV | 90.2 | FL | | | + + + + + + | MCH | 31.5 | PG | | | + + + + + + | MCHC | 34.9 (H) | GM/DL | | | + + + + + + | RDW | 15.4 (H) | % | | | + + + + + + | PLATELET | 249. | K/CU MM | | | | COUNT | | | | | + + + + + + | MPV | 8.3 | FL | | | + + + + + + + + | Specimen | + + | | + + + + + + + | Performing | Address | City/State/Zipcode | Phone Number | | Organization | | | | + + + + + | [facility] | [address] | [place], [place] [address] | | | PATHOLOGY | [address] | | | + + + + + documented in this encounter Visit Diagnoses Not on filedocumented in this encounter"
--- OUTSIDE RECORDS SUMMARY | ~2019-02-20 | XMS | Encounter Summary ---
Demographics + + + | Address | [address] | | | [place] [address] | + + + | Home Phone | | + + + | Preferred Language | Unknown | + + + | Marital Status | | + + + | Moravian Affiliation | 1028 | + + + [...] [place] | | | | | [address] | | + + + + + Care Team Providers + +------+ + | Care Women'S Ministry Director Name | Role | Phone | + +------+ + | Nelson Laird MD | PCP | | + +------+ + Encounter Details +--------+ + + + + | Date | Type | Department | Care Team | Description | +--------+ + + + + | 01/30/ | Orders Only | [facility] | Bridget Milian, MAYA | | | 2017 | | VASCULAR SURGERY | [address] | | | | | ULTRASOUND [address] | [place], [place] | | | | | [address] [place] [address] | [address] | | | | | [place], [place] | | | | | | [address] | | | | | | [phone] | | | +--------+ + + + [...] | | | | | | [place] [address] | | | | | | [phone] | | | | | | | | +--------+---------+ + + + | 05/19/ | Office | Cardiology | Cristian Mccoy, | | | 2019 | Visit | | MD [address] | | | | | | [place], [place] | | | | | | [address] | | | | | | | | +--------+---------+ + + + documented as of this encounter Procedures + +--------+ + + + | Procedure Name | Priori | Date/Time | Associated Diagnosis | Comments | | | ty | | | | + +--------+ + + + | VAS AORTA ILIAC | Routin | 01/30/2018 | | Results for this | | DUPLEX LIMITED | e | 10:55 AM | | procedure are in the | | | | PST | | results section. | + +--------+ + + + documented in this encounter Results VAS Aorta Iliac Duplex Limited (01/30/2018 10:55 AM PST) + + | Specimen | + + | | + + + + + | Narrative | Performed At | + + + | [facility] US AORTA WITH DUPLEX DOPPLER 01/30/2018 10:55 AM | | | HISTORY: 72 years. Male. Abdominal aortic aneurysm. | | | COMPARISON: None. TECHNIQUE: Sonographic evaluation of the | | | abdominal aorta was performed. FINDINGS: Level / AP | | | Diameter / Transverse Diameter (cm) Proximal Abdominal Aorta: | | | 2.8 / 2.6 Mid Abdominal Aorta: 2.9 / 3.2 Distal | | | Abdominal Aorta: 4.9 / 4.7 Right Common Iliac Artery: 1.9 | | | / 1.2 Left Common Iliac Artery: 1.7 / 1.2 Conclusion: | | | 1. Abdominal aortic aneurysm measuring 4.9 x 4.7 cm, unchanged from | | | July 31, 2017. Electronically signed by Harman Calle MD on | | | 01/30/2018 11:16 AM | | + + + + + | Procedure Note | + + | Steven, Rad Conversion - 11/06/2018 3:16 PM PDT [facility] | | US AORTA WITH DUPLEX DOPPLER | | 01/30/2018 10:55 AM | | | | HISTORY: 72 years. Male. Abdominal aortic aneurysm. | | | | COMPARISON: | | None. | | | | TECHNIQUE: | | Sonographic evaluation of the abdominal aorta was performed. | | | | FINDINGS: | | | | Level / AP Diameter / Transverse Diameter (cm) | | | | Proximal Abdominal Aorta: 2.8 / 2.6 | | Mid Abdominal Aorta: 2.9 / 3.2 | | Distal Abdominal Aorta: 4.9 / 4.7 | | Right Common Iliac Artery: 1.9 / 1.2 | | Left Common Iliac Artery: 1.7 / 1.2 | | | | Conclusion: | | 1. Abdominal aortic aneurysm measuring 4.9 x 4.7 cm, unchanged from July 31, 2017. | | | | | + + documented in this encounter Visit Diagnoses Not on filedocumented in this encounter"
--- OUTSIDE RECORDS SUMMARY | ~2019-02-20 | XMS | Encounter Summary ---
Demographics + + + | Address | [address] | | | [place] [address] | + + + | Home Phone | | + + + | Preferred Language | Unknown | + + + | Marital Status | | + + + | Sikhism Affiliation | LUT | + + + [...] Providers + +------+ + | Care Laborer Wrecking And Salvaging Name | Role | Phone | + [...] | Transcriptions | + + | Interface, Ms Sql Dba In - 03/22/2006 5:11 AM PST | | [facility] [facility] | | [place], [place] [address] [place] | | [facility] ClinicOPERATION RECORDMed Rec No.: [id number] Date: | | 03/03/1998Name: Jose Martin Rose SURGEON: Dylan Arthur M.D. | | Res Counselor, Otolaryngology | | Head and Neck SurgeryASSISTANTS: [...] onto the second tracheal ring andinserting the Clifton tube. The cartilage | | cuts were [...] M.D. Dylan Arthur M.D.Resident, Otolaryngology | | Res Counselor, OtolaryngologyHead and Neck Surgery Head and | [...] second tracheal ring and | |inserting the Clifton tube. The cartilage cuts were then made just left of | |the midline and right in front of the oblique line on the right side. The | |Ixtens oscillating saw was used to create these [...] M.D. Dylan Arthur M.D. | |Resident, Otolaryngology Res Counselor, Otolaryngology | |Head and Neck Surgery Head and Neck Surgery | | | |RAMIREZ/judy | | | | A | | | |cc: | + + documented in this encounter Visit Diagnoses Not on filedocumented in this encounter"
--- OUTSIDE RECORDS SUMMARY | ~2019-02-20 | XMS | Encounter Summary ---
Demographics + + + | Address | [address] | | | [place] [address] | + + + | Home Phone | | + + + | Preferred Language | Unknown | + + + | Marital Status | | + + + | Sikh Affiliation | LUT | + + + | Race | White | + + + | Ethnic Group | Not or | + + + Author + + + | Author | [facility] | + + + | Organization | [facility] | + + + | Address | Unknown | + + + | Phone | Unavailable | + + + Support + + +---------+ + | Name | Relationship | Address | Phone | + + +---------+ + | Blossom Rose | ECON | Unknown | | + + +---------+ + Care Team Providers + +------+ + | Care Pattern Marker Name | Role | Phone | + +------+ + | Maycol Knutson MD | PCP | | + +------+ + Encounter Details +--------+ + + + + | Date | Type | Department | Care Team | Description | +--------+ + + + + | 02/20/ | Documentati | Health Information | Other, Faculty | | | 2018 | on | Services [address] | [phone] | | | | | [address] | | | | | | Mailcode: [id number] | | | | | | [facility] | | | | | | [place], [place] | | | | | | [address] | | | | | | [phone] | | | +--------+ + + + [...]
--- OUTSIDE RECORDS SUMMARY | ~2019-02-20 | XMS | Encounter Summary ---
Demographics + + + | Address | [address] | | | [place] [address] | + + + | Home Phone [...] Team Providers + +------+ + | Care Bowl Topper Name | Role | Phone | + +------+ + | Maycol Knutson MD | PCP | | + +------+ + Encounter Details +--------+ + + + + | Date | Type | Department | Care Team | Description | +--------+ + + + + | 05/08/ | Letter-[facility] | | Letters, Other | [...] as of this encounter Progress Notes Interface, Business Agent In - 09/22/2005 1:03 AM [place] [facility] [place] [address] [place], [place] [id number] or May 08, 2002 Maycol Knutson M.D. [address] [place] [address] RE: [facility] MR #: [id number] Dear Dr. Knutson: Just a brief note to let you know I saw Mr. 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 The details of my interaction with the patient are outlined in my handwritten notes. I am pleased to report that he is free of evidence of recurrent disease and is really functioning at a very high level. I will see him back for 1 more year in followup and then we would consider him cured. I appreciate very much the chance to care for him. Please do not hesitate to contact me if you have any questions. Yours sincerely, Dylan Arthur M.D. [facility] / [id number] / [id number] / [id number] / cc: Moisés Quezada M.D. [address] [facility] [place], [place] [address]Hejaivjloeifmt signed by Interface, Business Agent In at 09/22/2005 1:0 3 AM PDTdocumented in this encounter Plan of Treatment Not on filedocumented as of this encounter Visit Diagnoses Not on filedocumented in this encounter"
--- OUTSIDE RECORDS SUMMARY | ~2019-02-20 | XMS | Encounter Summary ---
Demographics + + + | Address | [address] | | | [place] [address] | + + + | Home Phone | | + + + | Preferred Language | Unknown | + + + | Marital Status | | + + + | Orthodox Affiliation | LUT | + + + | Race | White | + + + | Ethnic Group | Not or | + + + Author + + + | Author | [facility] | + + + | Organization | [facility] | + + + | Address | Unknown | + + + | Phone | Unavailable | + + + Support + + +---------+ + | Name | Relationship | Address | Phone | + + +---------+ + | Blossom Rose | ECON | Unknown | | + + +---------+ + Care Team Providers + +------+ + | Care Telecommunications Operator Name | Role | Phone | + +------+ + PCP | Unavailable | + +------+ + Encounter Details +--------+ + + + + | Date | Type | Department | Care Team | Description | +--------+ + + + + | 05/07/ | Results | Otolaryngology | Dylan Arthur MD | | | 2003 | Only | Head and Neck | | | | | | Surgery Services at | | | | | | PPV [address] [facility] | | | | | | [address] | | | | | | Mailcode: [address] | | | | | | Physician's [address] | | | | | | [place], [place] | | | | | | [address] | | | | | | [phone] | | | +--------+ + + + [...] + | X-RAY CHEST 2 VIEW | Routin | 05/07/2003 | | Results for this | | | e | 1:35 PM | | procedure are in the | | | | PST | | results section. | + +--------+ + + + documented in this encounter Results CHEST 2 VIEW (05/07/2003 1:35 PM PST) + + + + + + | Component | Value | Ref Range | Performed | Pathologist | | | | | At | Signature | + + + + + + | CHEST, 2 | Radiologist 1: [place], | | | | | [place] | ASHWIN MeadowsEXAM: PA and | | | | | STEREO | lateral chest. | | | | | | INDICATION: Preop, and | | | | | | head and neck malignancy | | | | | | COMPARISON: None. | | | | | | FINDINGS: The cardiac | | | | | | and mediastinal contours | | | | | | are normal. | | | | | | Thepatient has had a | | | | | | prior CABG procedure. | | | | | | The lungs are | | | | | | clearwithout evidence | | | | | | for suspicious pulmonary | | | | | | nodules. There is | | | | | | nopleural effusion. | | | | | | Osseous structures are | | | | | | unremarkable. | | | | | | IMPRESSION: Prior CABG | | | | | | procedure. No evidence | | | | | | for acute pulmonary | | | | | | disease. | | | | + + + + + + + + | Specimen | + + | | + + + +---------+ + + | Performing | Address | City/State/Zipcode | Phone Number | | Organization | | | | + +---------+ + + | [facility] DEPARTMENT OF | | | | | RADIOLOGY | | | | + +---------+ + + documented in this encounter Visit Diagnoses Not on filedocumented in this encounter"
--- OUTSIDE RECORDS SUMMARY | ~2019-02-20 | XMS | Encounter Summary ---
Demographics + + + | Address | [address] | | | [place] [address] | + + + | Home Phone [...] [place] | | | | | [address] | | + + + + + Care Team Providers + +------+ + | Care Chlorine Plant Operator Name | Role | Phone | + +------+ + | Nelson Laird MD | PCP | | + +------+ + Reason for Referral Diagnostic/Screening (Routine) +--------+--------+ + + + + | Status | Reason | Specialty | Diagnoses / | Referred By | Referred To | | | | | Procedures | Contact | Contact | +--------+--------+ + + + + | Closed | | Radiology | Diagnoses | Maicol, Si, | | | | | | Abdominal | DNP [address] | | | | | | aortic | [address] | | | | | | aneurysm | [place] | | | | | | (AAA) | [place] | | | | | | without | [address] | | | | | | rupture | Phone: | | | | | | ([facility]) | [phone] | | | | | | Procedures | Fax: | | | | | | VAS Aorta | [phone] | | | | | | Iliac Duplex | | | | | | | Complete | | | +--------+--------+ + + + + Encounter Details +--------+ + + + + | Date | Type | Department | Care Team | Description | +--------+ + + + + | 01/19/ | Hospital | [facility] | | Abdominal aortic | | 2019 | Encounter | VASCULAR SURGERY | | aneurysm (AAA) | | | | ULTRASOUND [address] | | without rupture | | | | [address] [place] | | ([facility]) | | | | [facility] [place] | | | | | | [address] | | | | | | [phone] | | | +--------+ + + + [...] + + + +---------+ + + | XARELTO 10 MG | TAKE ONE TABLET BY | 90 | 2 | 01/02/20 | | | tablet | MOUTH EVERY DAY | tablet | | 19 | | + + + +---------+ + + documented as of this encounter Plan of Treatment +--------+---------+ + + + | Date | Type | Specialty | Care Team | Description | +--------+---------+ + + + | 03/05/ | Office | Pulmonology | Elai, | | | 2018 | Visit | | Mary Pinto, | | | | | | MD [address] | | | | | | [place] | | | | | | [place] [address] | | | | | | [phone] | | | | | | | | +--------+---------+ + + + | 05/19/ | Office | Cardiology | Cristian Mccoy, | | | 2019 | Visit | | MD [address] | | | | | | [place] | | | | | | [id number] | | | | | | | [...] this encounter Results VAS Aorta Iliac Duplex Complete (01/19/2019 11:11 [...] + | Diagnosis | + + | Abdominal aortic aneurysm (AAA) without rupture (HCC) | + + documented in this encounter"
--- OUTSIDE RECORDS SUMMARY | ~2019-02-20 | XMS | Encounter Summary ---
Demographics + + + | Address | [address] | | | [place] [address] | + + + | Home Phone | | + + + | Preferred Language | Unknown | + + + | Marital Status | | + + + | Faith Affiliation | 1028 | + + + | Race | Unknown | + + + | Ethnic Group | Unknown | + + + Author + + + | Author | [facility] | | | and [place] | + + + | Organization | [facility] | | [...] [place] | | | | | [address] | | + + + + + Care Team Providers + +------+ + | Care Outpatient Physical Therapist Name | Role | Phone | + [...] Chronic | Sharan D | [address] | | | | | systolic | MD [address] | [place], | | | | | heart | [facility] | [place] | | | | | failure | [place] | [address] | | | | | (HCC) | [place], [place] | Phone: | | | | | Unspecified | [address] | [phone] | | | | | sleep apnea | Phone: | Fax: | | | | | Procedures | [phone] | [phone] | | | | | ECHO | Fax: | | | | | | Complete [place] | [phone] | | | | | | ECHO HEART | | | | | | | XTHORACIC,CO | | | | | | | MPLETE W | | | | | | | DOPPLER [place] | | | | | | | ECHO HEART | | | | | | | XTHORACIC,CO | | | | | | | MPLETE, W/O | | | | | | | DOPPLER | | | +--------+--------+ + + + + Reason for Visit Diagnostic/Screening (Routine) +--------+--------+ [...] Chronic | Sharan D | [address] | | | | | systolic | MD [address] | [place], | | | | | heart | [place] | [place] | | | | | failure | [place] | [address] | | | | | (HCC) | [place], [place] | Phone: | | | | | Unspecified | [address] | [phone] | | | | | sleep apnea | Phone: | Fax: | | | | | Procedures | [phone] | [phone] | | | | | ECHO | Fax: | | | | | | Complete [place] | [phone] | | | | | | ECHO HEART | | | | | | | XTHORACIC,CO | | | | | | | MPLETE W | | | | | | | DOPPLER [place] | | | | | | [...] | +--------+ + + + + | 08/12/ | Hospital | [facility] | Sharan Bruno | Central sleep apnea; | | 2015 | Encounter | [facility] ECHO [address] | MD [address] | Chronic systolic | | | | [place] | [address] [place] | heart failure (HCC) | | | | [place] [address] | [place] [address] | | | | | [phone] | [phone] | | | | | | | | | | | | Neris Scott, | | | | | | Technologist | | +--------+ + + + + [...] | +--------+---------+ + + + | 03/05/ Office | Pulmonology | Elia, | | | 2018 | Visit | | Marycarla Pinto, | | | | | | MD [address] | | | | | | [place], | | | | | | [place] [address] | | | | | | [phone] | | | | | | | | +--------+---------+ + + + | 05/19/ | Office | Cardiology | Cristian Mccoy, | | | 2019 | Visit | | MD [address] | | | | | | [place] | | | | | | [address] | | | | | | | | +--------+---------+ + + + documented as of this encounter Procedures + +--------+ + + + | Procedure Name | Priori | Date/Time | Associated Diagnosis | Comments | | | ty | | | | + +--------+ + + + | ECHO COMPLETE | Routin | 08/12/2014 | Central sleep | Results for this | | | e | 9:20 AM | apnea Chronic | procedure are in the | | | | PDT | systolic heart | results section. | | | | | failure (HCC) | | + +--------+ + + + | LVEF VALUE | Routin | 08/12/2014 | | Results for this | | | e | | | procedure are in the | | | | | | results section. | + +--------+ + + + documented in this encounter Results ECHO Complete (08/12/2014 9:20 AM PDT) + + | Specimen | + + | | + + + + + | Narrative | Performed At | + + + | [facility] ECHOCARDIOGRAM REPORT | [place] | | STUDY DATE: 08/12/2014 PATIENT NAME: German Rose : | [facility] | | 1945 PCP: Maycol Knutson MD | [facility] | | CLINICAL HISTORY/DIAGNOSIS: A-fib, heart failure, [...] | | | size is normal with [id number]-cl-[id number] concentric left ventricular | | | hypertrophy, [...] left | | | atrial dilatation. 2. Scfh-sh-oqreucrt concentric left ventricular | | | hypertrophy. [...] | | Signed by: Kaitlynn Small MD [facility] 08/12/2014 9:20 | | | Master Motorcycle Technician: Neris Scott, RDCS, RDMS, RT | | + + + + + + + + | Performing | Address | City/[facility] | Phone Number | | Organization | | | | + + + + + | [address] | [address] | [place] | [phone] | | [facility] | | [address] | | | - IMAGING | | | | + + + + + LVEF VALUE (08/12/2014) + +-------+ + + + | Component | Value | Ref Range | Performed | Pathologist | | | | | At | Signature | + +-------+ + + + | LVEF-TTE | 65 | | | | | TRANSTHORAC | | | | | | IC ECHO | | | | | + +-------+ + + + documented in this encounter Visit Diagnoses + + | Diagnosis | + + | Central sleep apnea Unspecified sleep apnea | + + | Chronic systolic heart failure (HCC) Chronic systolic heart failure | + + documented in this encounter"
--- OUTSIDE RECORDS SUMMARY | ~2019-02-20 | XMS | Encounter Summary ---
Demographics + + + | Address | [address] | | | [place] [address] | + + + | Home Phone | | + + + | Preferred Language | Unknown | + + + | Marital Status | | + + + | Congregational Affiliation | LUT | + + + [...] Team Providers + +------+ + | Care Community Resource Consultant Name | Role | Phone | + +------+ + | Maycol Knutson MD | PCP | | + +------+ + Reason for Visit + + + | Reason | Comments | + + + | Discussion | | + + + Encounter Details +--------+ + + + + | Date | Type | Department | Care Team | Description | +--------+ + + + + | 07/28/ | Telephone | Otolaryngology | Alexei De | Discussion | | 2010 | | Laryngology Services | MD Timbo [address] | | | | | at [facility] [address] | [address] | | | | | [address] | [place], [place] | | | | | Mailcode: PV01 | [address] | | | | | Phys[facility] | [phone] | | | | | [place], [place] | | | | | | [address] | | | | | | [phone] | | | +--------+ + + + [...]
--- OUTSIDE RECORDS SUMMARY | ~2019-02-20 | XMS | Encounter Summary ---
Demographics + + + | Address | [address] | | | [place] [address] | + + + | Home Phone | | + + + | Preferred Language | Unknown | + + + | Marital Status | | + + + | Scientology Affiliation | 1028 | + + + | Race | Unknown | + + + | Ethnic Group | Unknown | + + + Author + + + | Author | [facility] | | | and [place] | + + + | Organization | [facility] | | | and [...] [place] | | | | | [address] | | + + + + + Care Team Providers + +------+ + | Care General Utility Maintenance Repairer Name | Role | Phone | [...] + + | 11/12/ | Office | [facility] | Nadine Cristian, | Coronary artery | | 2019 | Visit | [facility]ARDIOLOGY [place] | [address] | disease of bypass | | | | [address] | [place], [place] | graft of [place] | | | | [address] | [address] | heart with stable | | | | [place] | | angina pectoris | | | | [address] | | (HCC); Essential | | | | [phone] | | hypertension; Stable | | | | | | angina ([facility]); | | | | | | Chronic atrial | | | | | | fibrillation ([facility]) | +--------+---------+ + + + Social History [...] in October 2017 secondary to non-ST elevation CA in the setting of COPD exa cerbation. [...] Other (See Comments) Gabapentin Other (See Comments) SPINNER IRON Imipramine Other (See Comments) Urinary retention Metoprolol [...] 11.2 oz) | SpO2 95% | B CA 24.43 kg/m GENERAL APPEARANCE: Alert, oriented, cooperative, [...] e Rivaroxaban. 3. History of Non-ST elevation CA. 4. Dysphagia. 5. Chronic atrial fibrillation. On [...] | | | | | | [place] [address] | | | | | | [phone] | | | | | | | | +--------+---------+ + + + | 05/19/ | Office | Cardiology | Cristian Lazar, | | | 2020 | Visit | | MD [address] | | | | | | [place] | | | | | | [address] | | | | | | | [...] | | | PDT | graft of bishop pa[place] | results section. | | | | [...] | | | | | by [facility] [place] [facility] Read Only, | | | | | | [facility] ([id number]), | | | | | | editor farm journal Elbert Portillo | | | | | [...] Coronary artery disease of bypass graft of [place] heart with stable angina pectoris | | (HCC) | + + | Essential hypertension Unspecified essential hypertension | + + | Stable angina (HCC) Other and unspecified angina pectoris | + + | Chronic atrial fibrillation Atrial fibrillation | + + documented in this encounter
--- OUTSIDE RECORDS SUMMARY | ~2019-02-20 | XMS | Encounter Summary ---
Demographics + + + | Address | [address] | | | [place] [address] | + + + | Home Phone [...] + + + | Author | [facility] | + + + | Organization | [facility] | + + + | Address | Unknown | + + + | Phone | Unavailable | + + + Support + + +---------+ + | Name | Relationship | Address | Phone | + + +---------+ + | Blossom Rose | ECON | Unknown | | + + +---------+ + Care Team Providers + +------+ + | Care Caterers Helper Name | Role | Phone | + +------+ + | Maycol Knutson MD | PCP | | + +------+ + Encounter Details +--------+ + + + + | Date | Type | Department | Care Team | Description | +--------+ + + + + | 03/02/ | Office | [facility] | Note, [...] as of this encounter Progress Notes Interface, Material Movers In - 03/22/2006 5:11 AM PSTCLINIC DATE: 03/02/1998 OTOLARYNGOLOGY CLINIC SUBJECTIVE: Mr. Rose is seen back today for pre-operative discussion of vertical hemilaryngectomy. A full PARQ was held and Informed Consent was signed. All of these issues had been discussed on the telephone previously. He is comfortable with what will occur. I will see him back tomorrow for surgery. Dylan Arthur M.D. Crusher Loader Operator, Otolaryngology Head and Neck Surgery JIC:holli d ocumented in this encounter Plan of Treatment Not on filedocumented as of this encounter Visit Diagnoses Not on filedocumented in this encounter"
--- OUTSIDE RECORDS SUMMARY | ~2019-02-20 | XMS | Encounter Summary ---
Demographics + + + | Address | [address] | | | [place] [address] | + + + | Home Phone [...] [place] | | | | | [address] | | + + + + + Care Team Providers + +------+ + | Care Supervisor [employer] Name | Role | Phone | + [...] | | | | | aortic | [address] | | | | | | aneurysm | [place] | | | | | | (AAA) | [facility] [place] | | | | | | without | [address] | | | | | | rupture | Phone: | | | | | | (HCC) | [phone] | | | | | | Carotid | Fax: | | | | | | stenosis, | [phone] | | | | | | bilateral | | | | | | | Procedures | | | | | | | VAS Aorta | | | | | | | Iliac Duplex | | | | | | | Complete | | | +--------+--------+ + + + + Diagnostic/Screening (Routine) +--------+--------+ [...] | | | | | aortic | [address] | | | | | | aneurysm | [place] | | | | | | (AAA) | [place], [place] | | | | | | without | [address] | | | | | | rupture | Phone: | | | | | | ([facility]) | [phone] | | | | | | Carotid | Fax: | | | | | | stenosis, | [phone] | | | | | | bilateral | | | | | | | Procedures | | | | | | | VAS Carotid | | | | | | | Duplex | | | | | | | Bilateral | | | +--------+--------+ + + + + Reason for Visit + + + | Reason | Comments | + + + | Follow-up | 1 yr f/u carotid and aorta | + + + Encounter Details +--------+---------+ + + + | Date | Type | Department | Care Team | Description | +--------+---------+ + + + | 01/19/ | Office | [facility] | Bridget Milian DNP | Abdominal aortic | | 2019 | Visit | VASCULAR SURGERY | [address] | aneurysm (AAA) | | | | [address] [place] | [place], [place] | without rupture | | | | [place], [place] | [address] | (HCC) (Primary Dx); | | | | [address] | | Carotid stenosis, | | | | [phone] | | bilateral | +--------+---------+ + + + Social History [...] this encounter Last Filed Vital Signs + +---------+ + + | Vital Sign | Reading | Time Taken | Comments | + +---------+ + + | Blood Pressure | 171/73 | 01/19/2019 11:03 AM | | | | | PST | | + +---------+ + + | Pulse | 56 | 01/19/2019 11:03 AM | | | | | PST | | + +---------+ + + | Temperature | - | - | | + +---------+ + + | Respiratory Rate | - | - | | + +---------+ + + | Oxygen Saturation | 98% | 01/19/2019 11:03 AM | | | | | PST | | + +---------+ + + | Inhaled Oxygen | - | - | | | Concentration | | | | + +---------+ + + | Weight | - | - | | + +---------+ + + | Height | - | - | | + +---------+ + + | Body Mass Index | - | - | | + +---------+ + + documented in this encounter Progress Notes Bridget Milian DNP - 01/19/2019 12:00 PM [facility] [address] [place] [address] Office: [phone] DATE OF VISIT: 01/19/2019 PATIENT NAME: German Rose : 1945; AGE: 73 y.o.; Sex:M PHONE NUMBER: ; ; PROVIDER: Bridget Milian DNP PRIMARY CARE / REFERRING PHYSICIAN: Wellington Puga MD / [facility] / [address] / [place] [address] REASON FOR EVALUATION / CHIEF COMPLAINT: EVALUATION AND TREATMENT OF ABDOMINAL AORTIC ANEUR YSM AND CAROTID STENOSIS HISTORY OF PRESENT ILLNESS: German oRse is a 73 y.o. male patient who presents for evaluat ion and treatment of an abdominal aortic aneurysm. The patient reported that he has history of AAA and has been followed up yearly. His risk factors for an aneurysm include: arterioscl erotic heart disease, hypercholesterolemia, hypertension, peripheral vascular disease and hi story of smoking.He denied nausea, vomiting or abdominal distension as a result of this puls atile mass. The patient denied any lower leg arterial ischemic or claudication-like symptoms . The patient currently reports no numbness in the upper or lower extremities, and no motor or sensory deficits. The patient reports no difficulty in cognitive ability, slurred speech, or impaired verbal communication capability. He can not tolerate aspirin or plavix due to e pistaxis. He is taking Xarelto daily. VITAL SIGNS: 01/19/2019 PHYSICAL EXAM: Constitutional: Well nourished, no signs of distress HENT: Normocephalic and atraumatic. Cranial nerves IIXI are grossly intact. Cardiovascular: bradycardic, irregular rhythm. Pulmonary/Chest: No respiratory distress. Abdominal: Soft. No abdominal distension or tenderness. Musculoskeletal: Normal range of motion. Extremities: No cyanosis or clubbing. Neurological: He is alert and oriented. VASCULAR: Palpable femoral pulses were present bilaterally. The patient has a large pulsat ile abdominal mass consistent with an AAA. IMAGINGS: Us Carotid Doppler, Bilateral 01/19/2019 1. No hemodynamically significant stenosis of the internal carotid arteries. 2. There is greater than 50% narrowing of the left mid common carotid artery. There is ulcerated plaque at this region with possible intimal flap. 3. Antegrade flow of the bilateral vertebral art eries. Us aorta 01/19/2019 4.9 x 4.7 cm, unchanged ASSESSMENT / PLAN: Abdominal aortic aneurysm - Given the relative stable and <5.5 cm abdominal aortic aneurysm , I've informed the patient treatment strategies of conservative watchful observation versus endovascular treatment, who wishes to undergo the surveillance treatment strategy to monito r his aortic aneurysm growth. Mr. Rose is aware that in the event his aortic aneurysm shows evidence of aneurysm enlargement based on surveillance imaging studies, we'll consider endov ascular repair of his aortic aneurysm. We'll see him for follow-up in 1 year with repeat abd ominal ultrasound. Carotid Artery Stenosis - The patient has asymptomatic mild bilateral carotid artery diseas e. Given the patient s asymptomatic bilateral carotid artery disease, no surgical or inter ventional treatment is necessary at this time. We recommend intensive medical therapy using all available risk reduction strategies for patients with asymptomatic carotid atheroscleros is. Currently viable strategies include statin therapy, antiplatelet therapy, blood pressure control, and lifestyle modification consisting of smoking cessation, limited alcohol consum ption, weight control, regular aerobic physical activity, and a Mediterranean diet.We recomm end carotid endarterectomy plus intensive medical therapy, rather than intensive medical joseluis atment alone, for medically stable patients who have a life expectancy of at least five year s and a high grade (?80 percent) asymptomatic carotid atherosclerotic stenosis at baseline o r progression to ?80 percent stenosis despite intensive medical therapy while under observat ion. We have discussed signs and symptoms of TIA or CVA that would warrant urgent follow up with vascular clinic or nearest emergency facility such as difficulty speaking, swallowing, unilateral facial droop, unilateral arm or leg weakness, or visual changes. Patient express es understanding of these symptoms and to seek urgent follow up should any occur.We plan to follow the patient with surveillance duplex ultrasound. If the repeated carotid duplex scan showed disease progress with worsening of carotid artery lesion, or if the patient s carot id disease becomes symptomatic, further therapeutic treatment including carotid endarterecto my will be considered. The patient will undergo a repeat carotid duplex scan in 1 year. Bridget Milian DNP documented in this encounte r Plan of Treatment +--------+---------+ + + + [...] | | | | | | [place] [address] | | | | | | [phone] | | | | | | | | +--------+---------+ + + + | 05/19/ | Office | Cardiology | Cristian Mccoy, | | | 2019 | Visit | | MD [address] | | | | | | [place] | | | | | | [address] | | | | | | | | +--------+---------+ + + + + +---------+--------+ + + | Name | Type | Priori | Associated Diagnoses | Order Schedule | | | | ty | | | + +---------+--------+ + + | VAS Carotid Duplex | Imaging | Routin | Abdominal aortic | Expected: 01/20/2020 | | Bilateral | | e | aneurysm (AAA) | (Approximate), | | | | | without rupture | Expires: 07/19/2020 | | | | | (HCC) Carotid | | | | | | stenosis, bilateral | | + +---------+--------+ + + | VAS Aorta Iliac | Imaging | Routin | Abdominal aortic | Expected: 01/20/2020 | | Duplex Complete | | e | aneurysm (AAA) | (Approximate), | | | | | without rupture | Expires: 07/19/2020 | | | | | (HCC) Carotid | | | | | | stenosis, bilateral | | + +---------+--------+ + + documented as of this encounter Visit Diagnoses + + | Diagnosis | + + | Abdominal aortic aneurysm (AAA) without rupture (HCC) - Primary | + + | Carotid stenosis, bilateral Occlusion and stenosis of multiple and bilateral | | precerebral arteries without mention of cerebral infarction | + + documented in this encounter"
--- OUTSIDE RECORDS SUMMARY | ~2019-02-20 | XMS | Encounter Summary ---
Demographics + + + | Address | [address] | | | [place] [address] | + + + | Home Phone | | + + + | Preferred Language | Unknown | + + + | Marital Status | | + + + | Confucianism Affiliation | 1028 | + + + | Race | Unknown | + + + | Ethnic Group | Unknown | + + + Author + + + | Author | [facility] | | | and [place] | + + + | Organization | [facility] | | | [...] [place] | | | | | [address] | | + + + + + Care Team Providers + +------+ + | Care Assembler Trim Name | Role | Phone | + +------+ + | Maycol Knutson MD | PCP | | + +------+ + Reason for Visit +--------+ + | Reason | Comments | +--------+ + | Other | sleep study follow up | +--------+ + Encounter Details +--------+---------+ + + + | Date | Type | Department | Care Team | Description | +--------+---------+ + + + | 01/18/ | Office | [facility] [place] | Sharan Bruno | NOLA (obstructive | | 2015 | Visit | SLEEP DISORDER [address] | MD [address] | sleep apnea) | | | | [address] | [address] [place] | (Primary Dx); | | | | [place] [address] | [place] [address] | Rheumatoid arthritis | | | | [phone] | [phone] | involving both | | | | | | hands with positive | | | | | | rheumatoid factor | | | | | | (HCC) [...] + + + | Blood Pressure | 130/78 | 01/18/2015 8:51 AM | | | | | PST | | + + + + + | Pulse | 88 | 01/18/2015 8:51 AM | | | | | PST | | + + + + + | Temperature | - | - | | + + + + + | Respiratory Rate | 16 | 01/18/2015 8:51 AM | | | | | PST | | + + + + + | Oxygen Saturation | 95% | 01/18/2015 8:51 AM | | | | | PST | | + + + + + | Inhaled Oxygen | - | - | | | Concentration | | | | + + + + + | Weight | 81.6 kg (179 lb 14.4 | 01/18/2015 8:51 AM | | | | oz) | PST | | + + + + + | Height | - | - | | + + + + + | Body Mass Index | 27.35 | 11/18/2013 10:00 AM | | | | | PDT | | + + + + + documented in this encounter Progress Notes Sharan Bruno Jr., MD - 01/18/2015 9:01 AM PSTThe patient comes in for follow-up after undergoing diagnostic polysomnography. My interpretation of the patient's sleep study, which I have reviewed with the patient, is as follows: Polysomnogram Report on German Rose performed on 01/03/2015 Clinical Information: German Rose is a 69 y.o. male who underwent diagnostic nocturna l polysomnography on 01/03/[address] Knutson because of NOLA and CSA. PSG perf ormed on 12/22/2012 demonstrated an AHI of 77.4 (combination of Central Sleep Apnea secondary to Victoriano-Tomas Respiration and NOLA). This was treated with ASV-BPAP. The patient has a hi story of heart failure and atrial fibrillation. 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 Since then he has undergone nasal surgery. The current study is thus done. Technical Information: Please see technical data stored as Polysomnography under "Media" se ction in the [employer] EMR. Definitions (The AASM Manual for the [...] Sleep Architecture: Lights out was recorded at 2204 hundred hours on 01/03/2015 and lights on was recorded at 0728 hundred hours on 01/04/2015. The latency to sleep onset was normal at 6 minutes. The patient slept for 484.5 minutes out of 562 minutes of study time resulting an a sleep efficiency that was near normal at 86.2 %. The amount of N1 sleep was normal occ upying 3.5% of the Total Sleep Time; the amount of N2 sleep was high normal for age occupyin g 80.3% of the Total Sleep Time; the amount of N3 sleep was low occupying 0% of the Total Sl eep Time; the amount of REM sleep was normal occupying 16.2% of the Total Sleep Time and the latency to REM sleep was mildly prolonged at 194.5 minutes. Sleep in the following positions was recorded: left lateral decubitus 0%, right lateral dec ubitus 99.5%, supine 0.2%, prone 0%. He was unable to sleep supine. Sleep was minimally fragmented; the Arousal Index was 14.2. The patient reported this to be a usual night's sleep. Cardiopulmonary Monitoring: The heart rate averaged high-70's beats per minute. Moderate ra te variability was noted. The rhythm was atrial fibrillation. In the course of the evening there were 1 obstructive apneas, 0 mixed apneas, 1 central class 1 owner operator eas, 80 hypopneas, and 0 Respiratory Effort Related Arousals (RERA's). The Respiratory Distu rbance Index (RDI) was mildly elevated at 10.2; the Apnea-Hypopnea Index was mildly elevated at 10.2; the Apnea Index (AI) was normal at 0.2. The respiratory events were not sleep stag e dependent. The respiratory events were positional. They were much more frequently seen in the supine position, but only 1 minute was spent in supine sleep. The respiratory events occasioned mild sleep fragmentation; the Respiratory Arousal Index w as 5.7. The staci oxygen saturation was 86% and the patient spent 3.5 minutes with an oxygen satura tion of less than 88%. ETCO2 was normal. Limb Movement Monitoring: There were 162 Periodic Limb Movements (PLMS Index of 20.1) of wh ich 18 were associated with arousals; the PLMS Arousal Index was normal at 2.2. Interpretation: This polysomnogram is abnormal secondary to: Very mild obstructive sleep apnea is diagnosed and is associated with mild sleep fragmentat ion and very mild oxygen desaturation. Very little supine sleep was recorded. Periodic Limb Movements of Sleep are present but they do not significantly fragment sleep. There was only one central apnea seen in this study. Suggestions: 1. The principles of sleep hygiene should be reviewed with the patient. 2. Consideration should be given to treatment of mild obstructive sleep apnea. BP 130/78 mmHg | Pulse 88 | Resp 16 | Wt 81.602 kg (179 lb 14.4 oz) | SpO2 95% A: Complex Sleep Apnea: This seems to have nearly completely resolved. There are several po ssibilities accounting for the improvement: nasal/sinus surgery has helped significantly, pe rhaps his cardiac status has improved, and he states he is taking fewer opioids for pain. I suspect the improvement is a combination of surgery and fewer opioids. His apnea currently i s mild and probably doesn't need specific treatment. In view of the issues we've had with AYAAN Gupta, I'm going to suggest no PAP. RA: He is contemplating a new therapy for RA (biologic infusion). I've told him that I no longer keep up in that area but that if he is concerned, he might want to ask Dr. Knutson for a referral to [facility] Rheumatology for a second opinion. P: No PAP for now - should he or his become concerned that his sleep is deteriorating or that he is snoring loudly or that he is having more apneas, then they will call and I'll see him to consider restarting PAP. He will discuss with Dr. Knutson not using opioids for pain at night and possibly reall y limiting or eliminating the use of opioids altogether. He will discuss with Dr. Knutson the possibility of second opinion on his RA. F/u thus will be prn. Today, 15 minutes was spent face to face with the patient; the majority of time was spent c giuliana regarding NOLA and RA. Today, 15 minutes was spent face to face with the patient; the majority of time was spent c giuliana regarding sleep issues. documented in th is encounter Plan of Treatment +--------+---------+ + + + | Date | Type | Specialty | Care Team | Description | +--------+---------+ + + + | 03/05/ | Office | Pulmonology | [place], | | | 2018 | Visit | | Mray Pinto, | | | | | | MD [address] | | | | | | [place] | | | | | | [place] [address] | | | | | | [phone] | | | | | | | | +--------+---------+ + + + | 05/19/ | Office | Cardiology | Cristian Mccoy, | | | 2019 | Visit | | MD [address] | | | | | | [place] | | | | | | [address] | | | | | | | | +--------+---------+ + + + documented as of this encounter Visit Diagnoses + + | Diagnosis | + + | NOLA (obstructive sleep apnea) - Primary Obstructive sleep apnea (adult) (pediatric) | + + | Rheumatoid arthritis involving both hands with positive rheumatoid factor (HCC) | + + documented in this encounter
--- OUTSIDE RECORDS SUMMARY | ~2019-02-20 | XMS | Encounter Summary ---
Demographics + + + | Address | [address] | | | [place] [address] | + + + | Home Phone | | + + + | Preferred Language | Unknown | + + + | Marital Status | | + + + | Yarsanism Affiliation | LUT | + + + [...] Team Providers + +------+ + | Care Sap Hana Architect Name | Role | Phone | + [...] [id number] | | | | | | [place], [place] | | | | | | [address] | | | | | | [phone] | | | +--------+ + + + [...] | + + + + + | [facility] | [address] | [place] [address] | | | PATHOLOGY | [address] [...] | + + + + + | [facility] | [address] | [place] [address] | | | PATHOLOGY | [address] [...] | + + + + + | [facility] | [address] | [place], [place] [address] | | | PATHOLOGY | [address] | | | + + + + + documented in this encounter Visit Diagnoses Not on filedocumented in this encounter"
--- OUTSIDE RECORDS SUMMARY | ~2019-02-20 | XMS | Encounter Summary ---
Demographics + + + | Address | [address] | | | [place] [address] | + + + | Home Phone | | + + + | Preferred Language | Unknown | + + + | Marital Status | | + + + | Spiritism Affiliation | 1028 | + + + | Race | Unknown | + + + | Ethnic Group | Unknown | + + + Author + + + | Author | [facility] | | | and [place] | + + + | Organization | [facility] | | [...] [place] | | | | | [address] | | + + + + + Care Team Providers + +------+ + | Care Hydrological Technical Officer Name | Role | Phone | + +------+ + | Maycol Knutson MD | PCP | | + +------+ + Encounter Details +--------+ + + + + | Date | Type | Department | Care Team | Description | +--------+ + + + + | 04/03/ | Hospital | [facility] [place] [place] [facility] | Conversion | Pain | | 2018 | Encounter | CONVERSION [address] | Transaction, | | | | | [address] | Provider Unknown | | | | | [place], [place] | [phone] | | | | | [address] | | | | | | [phone] | | | +--------+ + + + [...] | 03/05/ | Office | Pulmonology | [facility], | | | 2018 | Visit | | Mary Pinto, | | | | | | MD [address] | | | | | | [place], | | | | | | [place] [address] | | | | | | [phone] | | | | | | | | +--------+---------+ + + + | 05/19/ | Office | Cardiology | [place], [place], | | | 2020 | Visit | | [address] | | | | | | [place] | | | | | | [address] | | | | | | | [...] this | | CONTRAST | e | 5:05 AM | | procedure are in the | | | | PST | | results section. | + +--------+ + + + documented in this encounter Results CT Cervical Spine wo Contrast (04/05/2016 5:05 AM PST) + + | Specimen | [...]
--- OUTSIDE RECORDS SUMMARY | ~2019-02-20 | XMS | Encounter Summary ---
Demographics + + + | Address | [address] | | | [place] [address] | + + + | Home Phone [...] [place] | | | | | [address] | | + + + + + Care Team Providers + +------+ + | Care Sugar House Supervisor Name | Role | Phone | + +------+ + | Maycol Knutson MD | PCP | | + +------+ + Encounter Details +--------+ + + + + | Date | Type | Department | Care Team | Description | +--------+ + + + + | 02/15/ | Hospital | [facility] | Conversion | | | 2016 | Encounter | [facility] [address] | Transaction, | | | | | [address] | Provider Unknown | | | | | [place], [place] | [phone] | | | | | [address] | | | | | | [phone] | | | +--------+ + + + [...] | | | | | | [place] [address] | | | | | | [phone] | | | | | | | | +--------+---------+ + + + | 05/19/ | Office | Cardiology | Cristian Mccoy, | | | 2020 | Visit | | MD [address] | | | | | | [place] | | | | | | [address] | | | | | | | | +--------+---------+ + + + documented as of this encounter Visit Diagnoses Not on filedocumented in this encounter"
--- OUTSIDE RECORDS SUMMARY | ~2019-02-20 | XMS | Encounter Summary ---
Demographics + + + | Address | [address] | | | [place] [address] | + + + | Home Phone [...] Team Providers + +------+ + | Care Face Burler Name | Role | Phone | + +------+ + | Maycol Knutson MD | PCP | | + +------+ + Encounter Details +--------+ + + + + | Date | Type | Department | Care Team | Description | +--------+ + + + + | 08/03/ | Procedure - | | Documentation, | [...] + + | TEACHING PHYSICIAN | | 08/03/1998 | | | + +--------+ + + + documented in this encounter Visit Diagnoses Not on filedocumented in this encounter"
--- OUTSIDE RECORDS SUMMARY | ~2019-02-20 | XMS | Encounter Summary ---
Demographics + + + | Address | [address] | | | [place] [address] | + + + | Home Phone | | + + + | Preferred Language | Unknown | + + + | Marital Status | | + + + | Pentecostal Affiliation | 1028 | + + + | Race | Unknown | + + + | Ethnic Group | Unknown | + + + Author + + + | Author | [facility] | | | and [place] | + + + | Organization | [facility] | | | [...] [place] | | | | | [address] | | + + + + + Care Team Providers + +------+ + | Care Genetics Nurse Name | Role | Phone | [...] + | 09/15/ | Office | [facility] [place] | Aleksandar Tejeda PA | Victoriano-Wallace | | 2014 | Visit | SLEEP DISORDER [address] | [address] | respiration (Primary | | | | [address] [place] | [place], [place] | Dx); Obstructive | | | | [place] [address] | [address] | sleep apnea (adult) | | | | [phone] | | (pediatric) | +--------+---------+ + + [...] BiPAP with nasal mask (Cary) obtained from: [facility] pressure: EPAP = 4cm;PSmin=0cm;PSmax=25cm;backup rate=auto Nights using BiPAP: average usage (all nights): 0:27 average usage (nights used): 2:34 AHI: 1.5 German comes in for BiPAP compliance. He continues to have problems with congestion. He has increased his humidity to the maximum of 5.0, but this has not been helpful. [facility], he is only using a small [...] that he take his BiPAP to [facility] to have his humidifier checked and repaired or replaced, if necessary. He would also benefit from seeing an ENT specialist. I will follow up again in 1 month, sooner prn. Fifteen minutes were spent [id number], wi th the majority of time spent [...] | | | | | | [place] [address] | | | | | | [phone] | | | | | | | | +--------+---------+ + + + | 05/19/ | Office | Cardiology | Cristian Mccoy, | | | 2019 | Visit | | MD [address] | | | | | | [place] | | | | | | [address] | | | | | | | | +--------+---------+ + + + documented as of this encounter Visit Diagnoses + + | Diagnosis | + + | Victoriano-Wallace respiration - Primary | + + | Obstructive sleep apnea (adult) (pediatric) | + + documented in this encounter"
--- OUTSIDE RECORDS SUMMARY | ~2019-02-20 | XMS | Encounter Summary ---
Demographics + + + | Address | [address] | | | [place] [address] | + + + | Home Phone | | + + + | Preferred Language | Unknown | + + + | Marital Status | | + + + | Zoroastrian Affiliation | 1028 | + + + | Race | Unknown | + + + | Ethnic Group | Unknown | + + + Author + + + | Author | [facility] | | | and [place] | + + + | Organization | [facility] | | | [...] [place] | | | | | [address] | | + + + + + Care Team Providers + +------+ + | Care Cook Syrup Maker Name | Role | Phone | + +------+ + | Maycol Knutson MD | PCP | | + +------+ + Reason for Visit +---------+ + | Reason | Comments | +---------+ + | Consult | | +---------+ + Encounter Details +--------+---------+ + + + | Date | Type | Department | Care Team | Description | +--------+---------+ + + + | 11/18/ | Office | [facility] [place] | Aleksandar Tejeda PA | NOLA (obstructive | | 2014 | Visit | SLEEP DISORDER [address] | [address] | sleep apnea) | | | | [address] [place] | [place], [place] | (Primary Dx); | | | | [place] [address] | [address] | Victoriano-Wallace | | | | [phone] | | respiration | +--------+---------+ + + [...] + + + | Blood Pressure | 134/66 | 11/18/2013 10:00 AM | | | | | PDT | | + + + + + | Pulse | 67 | 11/18/2013 10:00 AM | | | | | PDT | | + + + + + | Temperature | - | - | | + + + + + | Respiratory Rate | 16 | 11/18/2013 10:00 AM | | | | | PDT | | + + + + + | Oxygen Saturation | 97% | 11/18/2013 10:00 AM | | | | | PDT | | + + + + + | Inhaled Oxygen | - | - | | | Concentration | | | | + + + + + | Weight | 82.2 kg (181 lb 3.2 | 11/18/2013 10:00 AM | | | | oz) | PDT | | + + + + + | Height | 172.7 cm (5' 8") | 11/18/2013 10:00 AM | | | | | PDT | | + + + + + | Body Mass Index | 27.55 | 11/18/2013 10:00 AM | | | | | PDT | | + + + + + documented in this encounter Progress Aleksandar Contreras PA - 11/18/2013 9:55 AM PDT Subjective: Patient ID: German Rose is a 68 y.o. male. HPI last office visit was: 09/15/2013 date of polysomnography: 12/22/2012 AHI: 77.4 RDI: 77.4 O2%: 86% with 15.8 minutes below 88% Machine type: Respironics ASV BiPAP with nasal mask (Cary) obtained from: [employer] in [place] pressure: EPAP = 4cm;PSmin=0cm;PSmax=25cm;backup rate=auto Nights using BiPAP: 15/64 % of nights >4 hours: 3.1% average usage (all nights): 0:27 0:28 average usage (nights used): 2:34 2:03 AHI: 1.0 German comes in for BiPAP compliance. He continues to have problems with congestion. He has tried increasing his humidity to the maximum of 5.0, but this has not been helpful. [facility] setting, he is only using a small amount of water, which often indicates that it is not wo rking properly. He continues to have dried blood in his nose in the morning when using his BiPAP. He has not been using his BiPAP on most nights because of this. He understands the severity of his apnea and the importance of treating it. He did very well during the first few months with his BiPAP. He and his noticed a significant improvement in his sleep q uality and his daytime sleepiness and energy. During this time, he was not having congestio n problems and he was using more water each night. He took his BiPAP to [place] to have the h umidifier checked. He says they made some adjustments to it, but did not replace it or seem to repair anything. The function of the humidifier has not improved. He and his are very frustrated. He also said that his Respironics ASV was very quiet when he began using i t, but it now makes much more noise. He is not able to make any adjustments to his mask or the machine to improve the noise. I have discussed the download in detail. This shows that his sleep apnea is controlled, wi th an AHI of 1.0. It also shows that his leaks are well controlled. He has not met the com pliance standard of wearing his BiPAP for >4 hours for 70% or more nights during at least a thirty day period. Review of Systems Objective: Physical Exam Assessment: Problem #1: OBSTRUCTIVE SLEEP APNEA (ICD 9-327.23) This is controlled with BiPAP, but he continues to struggle with wearing it for the duratio n of the night because of problems with congestion. His BiPAP is only using a small amount of water during the night, which is likely the cause of his dryness and congestion. He has taken his current BiPAP to [place] to be repaired, but this has not improved. Problem#2: VICTORIANO-WALLACE BREATHING (ICD 9-786.04) See above. Plan: He is to continue with his BiPAP indefinitely. I recommended that he take his BiPAP to [facility] [place] to have it replaced with a ResMed S9 ASV BiPAP. He may also benefit from seeing an ENT specialist. He will follow up with Dr. Bruno. Thirty minutes were spent [id number], with the majorit y of time spent in counseling. Aleksandar Tejeda PA-C cc: Dr. Maycol Torrez documented in this enco unter Plan of Treatment +--------+---------+ + + + | Date | Type | Specialty | Care Team | Description | +--------+---------+ + + + | 03/05/ | Office | Pulmonology | [facility], | | | 2018 | Visit | | Mary Pinto, | | | | | | MD [address] | | | | | | [place], | | | | | | [place] [address] | | | | | | [phone] | | | | | | | | +--------+---------+ + + + | 03/04/ | Office | Cardiology | Cristian Mccoy, | | | 2019 | Visit | | MD [address] | | | | | | [place] | | | | | | [address] | | | | | | | | +--------+---------+ + + + documented as of this encounter Visit Diagnoses + + | Diagnosis | + + | NOLA (obstructive sleep apnea) - Primary Obstructive sleep apnea (adult) (pediatric) | + + | Victoriano-Wallace respiration | + + documented in this encounter
--- OUTSIDE RECORDS SUMMARY | ~2019-02-20 | XMS | Encounter Summary ---
Demographics + + + | Address | [address] | | | [place] [address] | + + + | Home Phone | | + + + | Preferred Language | Unknown | + + + | Marital Status | | + + + | Nondenominational Affiliation | LUT | + + + [...] Team Providers + +------+ + | Care Advertising Display Rotator Name | Role | Phone | + [...] as of this encounter Progress Notes Interface, Bingo Floater In - 03/22/2006 5:11 AM PSTCLINIC DATE: 03/02/1998 OTOLARYNGOLOGY CLINIC SUBJECTIVE: Mr. Rose is seen back today for pre-operative discussion of vertical hemilaryngectomy. A full PARQ was held and Informed Consent was signed. All of these issues had been discussed on the telephone previously. He is comfortable with what will occur. I will see him back tomorrow for surgery. Dylan Arthur M.D. [place]scre[place] Man, Otolaryngology Head and Neck Surgery JIC:holli d ocumented in this encounter Plan of Treatment Not on filedocumented as of this encounter Visit Diagnoses Not on filedocumented in this encounter"
--- OUTSIDE RECORDS SUMMARY | ~2019-02-20 | XMS | Encounter Summary ---
Demographics + + + | Address | [address] | | | [place] [address] | + + + | Home Phone | | + + + | Preferred Language | Unknown | + + + | Marital Status | | + + + | Anabaptism Affiliation | 1028 | + + + | Race | Unknown | + + + | Ethnic Group | Unknown | + + + Author + + + | Author | [facility] | | | and [place] | + + + | Organization | [facility] | | [...] [place] | | | | | [address] | | + + + + + Care Team Providers + +------+ + | Care Radio Presenter Name | Role | Phone | + [...] | systolic | MD [address] | [place], | | | | | heart | [facility] | [place] | | | | | failure | [place] | [address] | | | | | (HCC) | [place], [place] | Phone: | | | | | Unspecified | [address] | [phone] | | | | | sleep apnea | Phone: | Fax: | | | | | Procedures | [phone] | [phone] | | | | | ECHO | Fax: | | | | | | Complete [place] | [phone] | | | | | | ECHO HEART | | | | | | | XTHORACIC,CO | | | | | | | MPLETE W | | | | | | | DOPPLER [place] | | | | | | [...] Chronic | Sharan D | [address] | | | | | systolic | MD [address] | [place], | | | | | heart | [address] | [place] | | | | | failure | [place] | [address] | | | | | (HCC) | [place] | Phone: | | | | | Unspecified | [address] | [phone] | | | | | sleep apnea | Phone: | Fax: | | | | | Procedures | [phone] | [phone] | | | | | ECHO | Fax: | | | | | | Complete [place] | [phone] | | | | | | ECHO HEART | | | | | | | XTHORACIC,CO | | | | | | | MPLETE W | | | | | | | DOPPLER [place] | | | | | | [...] + + | 08/12/ | Hospital | [facility] | Sharan Bruno | Central sleep apnea; | | 2015 | Encounter | [facility] ECHO [address] | MD [address] | Chronic systolic | | | | [address] [place] | [address] [place] | heart failure (HCC) | | | | [place] [address] | [place] [address] | | | | | [phone] | [phone] | | | | | | | [...] | | | | | | [place] [address] | | | | | | [phone] | | | | | | | | +--------+---------+ + + + | 05/19/ | Office | Cardiology | Cristian Mccoy, | | | 2019 | Visit | | MD [address] | | | | | | [place] | | | | | | [address] | | | | | | | [...] Performed At | + + + | [facility] ECHOCARD[facility] REPORT | [place] | | STUDY DATE: 08/12/2014 PATIENT NAME: German Rose : | [facility] | | 1945 PCP: Maycol Knutson MD | [facility] | | CLINICAL HISTORY/DIAGNOSIS: A-fib, heart [...] | | | size is normal with inop-ni-ggvlredn concentric left ventricular | | | hypertrophy, [...] left | | | atrial dilatation. 2. Qask-li-ytnuvsgv concentric left ventricular | | | hypertrophy. [...] | | Signed by: Kaitlynn Small MD [facility] 08/12/2014 9:20 | | | Benefits Consulting Analyst: Neris Scott, RDCS, RDMS, RT | | + + + + + + + + | Performing | Address | City/[facility] | Phone Number | | Organization | | | | + + + + + | [address] | [address] | [place] | [phone] | | [facility] | | [address] | | | - IMAGING | | [...]
--- OUTSIDE RECORDS SUMMARY | ~2019-02-20 | XMS | Encounter Summary ---
Demographics + + + | Address | [address] | | | [place] [address] | + + + | Home Phone [...] Team Providers + +------+ + | Care Sow Manager Name | Role | Phone | + +------+ + | Maycol Knutson MD | PCP | | + +------+ + Encounter Details +--------+ + + + + | Date | Type | Department | Care Team | Description | +--------+ + + + + | 07/20/ | Office | [facility] | Note, [...] as of this encounter Progress Notes Interface, Military Exchange Wireless Manager In - 02/05/2006 1:06 AM PSTCLINIC DATE: 07/21/1999 OTOLARYNGOLOGY CLINIC SUBJECTIVE: Mr. Rose is seen back today because of concern on his part that he has coughed out cartilage graft. He had some significant coughing with chest pain and what sounds like a little bit of hemoptysis associated with mild tracheitis. Flexible fiberoptic laryngoscopy is done antegrade and retrograde through his tracheostomy. He has mild tracheitis. His graft is intact, and his laryngeal airway certainly is much improved. He is not wearing his tracheal plug most of the time. ASSESSMENT: Status post laryngotracheal cartilage reconstruction, doing well. PLAN: We will see him back here as previously scheduled. In the interim, I have put him on two weeks of Augmentin. Dylan Arthur M.D. KRIS / [id number] / [id number] / [id number] / [id number] C: 07/27/1999 [id number] signed by Interface, Military Exchange Wireless Manager In at 02/05/2006 1:06 AM PSTdocume nted in this encounter Plan of Treatment Not on filedocumented as of this encounter Visit Diagnoses Not on filedocumented in this encounter"
--- OUTSIDE RECORDS SUMMARY | ~2019-02-20 | XMS | Encounter Summary ---
Demographics + + + | Address | [address] | | | [place] [address] | + + + | Home Phone [...] Team Providers + +------+ + | Care Pharmacy Delivery Driver Name | Role | Phone | [...] | | | | | [facility] [address] [facility] | | | | | | Ivan Harris | | | | | | Mailcode: PV01 | | | | | | [facility] | | | | | | [place], [place] | | | | | | [address] | | | | | | [phone] | | | +--------+ + + + [...] | | + +---------+ + + | [facility] DEPARTMENT OF | | | | | RADIOLOGY | | | | + +---------+ + + documented in this encounter Visit Diagnoses Not on filedocumented in this encounter"
--- OUTSIDE RECORDS SUMMARY | ~2019-02-20 | XMS | Encounter Summary ---
Demographics + + + | Address | [address] | | | [place] [address] | + + + | Home Phone [...] Team Providers + +------+ + | Care Auto Body Repair Technician Name | Role | Phone | + +------+ + | Maycol Knutson MD | PCP | | + +------+ + Reason for Visit + + + | Reason | Comments | + + + | Throat problem | Airway constricting, periodic choking on food, and tightening | | | sensation. PCP suggested German return to see Dr. Arthur. Please | | | advise for scheduling - Dr. De or Dr. Arthur. Call Amira, | | | , back to schedule. | + + + Encounter Details +--------+ + + + + | Date | Type | Department | Care Team | Description | +--------+ + + + + | 11/21/ | Telephone | Otolaryngology | Dylan Arthur MD | Throat problem | | 2006 | | Head and Neck | | (Airway | | | | Surgery Services at | | constricting, | | | | [facility] [address] | | periodic choking on | | | | [address] | | food, and tightening | | | | Mailcode: PV01 | | sensation. PCP | | | | [facility] | | suggested German | | | | [place], [place] | | return to see | | | | [address] | | Jerson. Please | | | | [phone] | | advise for | | | | | | scheduling - | | | | | | Kenisha or | | | | | | Jerson. Call Amira, | | | | | | , back to | | | | | | schedule.) | +--------+ + + + + Social [...]
--- OUTSIDE RECORDS SUMMARY | ~2019-02-20 | XMS | Encounter Summary ---
Demographics + + + | Address | [address] | | | [place] [address] | + + + | Home Phone [...] Team Providers + +------+ + | Care Muffler Hand Name | Role | Phone | [...] as of this encounter Progress Notes Interface, Personnel Clerks Supervisor In - 03/25/2006 3:15 AM PSTCLINIC DATE: [...] this with Mr. Rose. Dylan Arthur M.D. Bacon Slicer, Otolaryngology Head and Neck Surgery [facility]/dat SSA Perez, Personnel Clerks Supervisor In - 03/16/2006 3:04 AM PSTCLINIC DATE: [...] edema of this one. Dylan Arthur M.D. Bacon Slicer, Otolaryngology Head and Neck Surgery [facility] /karen do cumented in this encounter Plan of Treatment Not on filedocumented as of this encounter Visit Diagnoses Not on filedocumented in this encounter"
--- OUTSIDE RECORDS SUMMARY | ~2019-02-20 | XMS | Encounter Summary ---
Demographics + + + | Address | [address] | | | [place] [address] | + + + | Home Phone | | + + + | Preferred Language | Unknown | + + + | Marital Status | | + + + | Sikh Affiliation | LUT | + + + | Race | White | + + + | Ethnic Group | Not or | + + + Author + + + | Author | [facility] | + + + | Organization | [facility] | + + + | Address | Unknown | + + + | Phone | Unavailable | + + + Support + + +---------+ + | Name | Relationship | Address | Phone | + + +---------+ + | Blossom Rose | ECON | Unknown | | + + +---------+ + Care Team Providers + +------+ + | Care Cardiology Technician Name | Role | Phone | + +------+ + | Maycol Knutson MD | PCP | | + +------+ + Encounter Details +--------+ + + + + | Date | Type | Department | Care Team | Description | +--------+ + + + + | 02/24/ | Office | [facility] | Note, [...] as of this encounter Progress Notes Interface, Radio Television Technical Director In - 03/22/2006 5:11 AM PSTCLINIC DATE: 02/24/1998 OTOLARYNGOLOGY CLINIC SUBJECTIVE: I talked with and Mrs. Rose at some length about the findings of carcinoma on the biopsy. They seem to understand what is involved. I told them I feel the lesion is deep enough that I believe that radiation does not carry the usual high incidence of cure and that a vertical hemilaryngectomy would be preferable. I have discussed this with my colleagues in radiation oncology and the other head and neck surgeons here at the head and neck tumor board. We will proceed in the near future if they decide to go ahead. Dylan Arthur M.D. Administration Clerk, Otolaryngology Head and Neck Surgery [place]/rajani d ocumented in this encounter Plan of Treatment Not on filedocumented as of this encounter Visit Diagnoses Not on filedocumented in this encounter"
--- OUTSIDE RECORDS SUMMARY | ~2019-02-20 | XMS | Encounter Summary ---
Demographics + + + | Address | [address] | | | [place] [address] | + + + | Home Phone | | + + + | Preferred Language | Unknown | + + + | Marital Status | | + + + | Confucianism Affiliation | 1028 | + + + | Race | Unknown | + + + | Ethnic Group | Unknown | + + + Author + + + | Author | [facility] | | | and [place] | + + + | Organization | [facility] | | | and [place] | + + + | Address | Unknown | + + + | Phone | Unavailable | + + + Support + + + + + | Name | Relationship | Address | Phone | + + + + + | Blossom Rose | ECON | [address] | | | | | [place] | | | | | [address] | | + + + + + Care Team Providers + +------+ + | Care Business Solution Analyst Name | Role | Phone | + +------+ + PCP | Unavailable | + +------+ + Encounter Details +--------+ + + + + | Date | Type | Department | Care Team | Description | +--------+ + + + + | 11/28/ | Abstract | [place] [facility] | DATA MIGRATION XOCHITL | | | 2011 | | Conversion Location | SR | | | | | [phone] | | | +--------+ + + + [...] + | Blood Pressure | 122/68 | 05/10/2011 12:00 AM | | | | | PST [...] + + + + | Weight | 94.8 kg (209 lb) | 05/10/2011 12:00 AM | | | | | PST | | + + + + + | Height | - | - | | + + + + + | Body Mass Index | - | - | | + + + + + documented in this encounter Plan of Treatment [...] | | | | | | [place] [address] | | | | | | [phone] | | | | | | | | +--------+---------+ + + + | 05/19/ | Office | Cardiology | Cristian Mccoy, | | | 2019 | Visit | | [address] | | | | | | [place] | | | | | | [address] | | | | | | | | +--------+---------+ + + + documented as of this encounter Procedures + +--------+ + + + | Procedure Name | Priori | Date/Time | Associated Diagnosis | Comments | | | ty | | | | + +--------+ + + + | ENDOSCOPY, COLON, | Routin | 03/18/2007 | | Results for this | | DIAGNOSTIC | e | 12:00 AM | | procedure are in the | | | | PST | | results section. | + +--------+ + + + documented in this encounter Results ENDOSCOPY, COLON, DIAGNOSTIC (03/18/2007 12:00 AM PST) + + | Specimen | + + | | + + + + + | Narrative | Performed At | + + + | | | + + + documented in this encounter Visit Diagnoses Not on filedocumented in this encounter"
--- OUTSIDE RECORDS SUMMARY | ~2019-02-20 | XMS | Encounter Summary ---
Demographics + + + | Address | [address] | | | [place] [address] | + + + | Home Phone | | + + + | Preferred Language | Unknown | + + + | Marital Status | | + + + | Spiritism Affiliation | 1028 | + + + | Race | Unknown | + + + | Ethnic Group | Unknown | + + + Author + + + | Author | [facility] | | | and [place] | + + + | Organization | [facility] | | [...] [place] | | | | | [address] | | + + + + + Care Team Providers + +------+ + | Care Electric Refrigerator Servicer Name | Role | Phone | + [...] + + | 11/18/ | Office | [facility] [place] | Aleksandar Tejeda PA | [place] (obstructive | | 2014 | Visit | SLEEP DISORDER [address] | [address] | sleep apnea) | | | | [address] [place] | [place], [place] | (Primary Dx); | | | | [place] [address] | [address] | [place] | | | | [phone] | | respiration | +--------+---------+ + + [...] BiPAP with nasal mask ([place]ary) obtained from: L[facility] in [place] pressure: EPAP = 4cm;PSmin=0cm;PSmax=25cm;backup rate=auto Nights using BiPAP: 15/64 % of nights >4 hours: 3.1% average usage (all nights): 0:27 0:28 average usage (nights used): 2:34 2:03 AHI: 1.0 German comes in for BiPAP compliance. He continues to have problems with congestion. He has tried increasing his humidity to the maximum of 5.0, but this has not been helpful. [facility] setting, he is only using [...] each night. He took his BiPAP to [place] to have the h umidifier checked. He [...] He has taken his current BiPAP to [place] to be repaired, but this has not improved. Problem#2: VI[place]IAN[place] BREATHING (ICD 9-786.04) See above. Plan: He is to continue with his BiPAP indefinitely. I recommended that he take his BiPAP to [facility] [place] to have it replaced with a ResMed S9 ASV BiPAP. He may also benefit from seeing an ENT specialist. He will follow up with Dr. Bruno. Thirty minutes were spent rtzr-[id number], with the majorit y of time spent in counseling. Aleksandar Tejeda PA-C cc: Dr. Maycol Torrez documented in this enco unter Plan of Treatment +--------+---------+ + + + | Date | Type | Specialty | Care Team | Description | +--------+---------+ + + + | 03/05/ | Office | Pulmonology | [facility], | | | 2018 | Visit | | Mary Pinto, | | | | | | MD [address] | | | | | | [place], | | | | | | [place] [address] | | | | | | [phone] | | | | | | | | +--------+---------+ + + + | 03/04/ | Office | Cardiology | Cristian Mccoy, | | | 2019 | Visit | | MD [address] | | | | | | [place] | | | | | | [address] | | | | | | | | +--------+---------+ + + + documented as of this encounter Visit Diagnoses + + | Diagnosis | + + | [place] (obstructive sleep apnea) - Primary Obstructive sleep apnea (adult) (pediatric) | + + | [place] respiration | + + documented in this encounter
--- OUTSIDE RECORDS SUMMARY | ~2019-02-20 | XMS | Encounter Summary ---
Demographics + + + | Address | [address] | | | [place] [address] | + + + | Home Phone | | + + + | Preferred Language | Unknown | + + + | Marital Status | | + + + | Holiness Affiliation | 1028 | + + + | Race | Unknown | + + + | Ethnic Group | Unknown | + + + Author + + + | Author | [facility] | | | and [place] | + + + | Organization | [facility] | | | [...] [place] | | | | | [address] | | + + + + + Care Team Providers + +------+ + | Care Washer Carcass Name | Role | Phone | + [...] Closed | | Radiology | Diagnoses | Bridget Milian, | | | | | | Carotid | DNP [address] | | | | | | stenosis, | [address] | | | | | | bilateral | [place] | | | | | | Procedures | [place] | | | | | | VAS Carotid | [address] | | | | | | Duplex | Phone: | | | | | | Bilateral | [phone] | | | | | | | Fax: | | | | | | | [phone] | | +--------+--------+ + + + + Encounter Details +--------+ + + + + | Date | Type | Department | Care Team | Description | +--------+ + + + + | 01/19/ | Hospital | [facility] | | Carotid stenosis, | | 2019 | Encounter | VASCULAR SURGERY | | bilateral | | | | ULTRASOUND [address] | | | | | | [address] | | | | | | [place] | | | | | | [address] | | | | | | [phone] | | | +--------+ + + + [...] | | | | | | [place] [address] | | | | | | [phone] | | | | | | | | +--------+---------+ + + + | 05/19/ | Office | Cardiology | Cristian Mccoy, | | | 2019 | Visit | | MD [address] | | | | | | [place] | | | | | | [address] | | | | | | | [...] this encounter Results VAS Carotid Duplex Bilateral (01/19/2019 11:15 [...] + | Diagnosis | + + | Carotid stenosis, bilateral Occlusion and stenosis of multiple and bilateral | | precerebral arteries without mention of cerebral infarction | + + documented in this encounter"
--- OUTSIDE RECORDS SUMMARY | ~2019-02-20 | XMS | Encounter Summary ---
Demographics + + + | Address | [address] | | | [place] [address] | + + + | Home Phone | | + + + | Preferred Language | Unknown | + + + | Marital Status | | + + + | Adventism Affiliation | LUT | + + + [...] Providers + +------+ + | Care Senior Account Clerk Name | Role | Phone | [...]
--- OUTSIDE RECORDS SUMMARY | ~2019-02-20 | XMS | Encounter Summary ---
Demographics + + + | Address | [address] | | | [place] [address] | + + + | Home Phone [...] Team Providers + +------+ + | Care Customs Agent Name | Role | Phone | + +------+ + | Maycol Knutson MD | PCP | | + +------+ + Encounter Details +--------+ + + + + | Date | Type | Department | Care Team | Description | +--------+ + + + + | 11/08/ | Office | [facility] | Note, [...] as of this encounter Progress Notes Interface, Director Sports In - 12/30/2005 1:06 AM PDTCLINIC DATE: 11/08/2000 OTOLARYNGOLOGY CLINIC SUBJECTIVE: Mr. Rose seen back today in followup. He is really doing very well. He has had a little hoarseness recently. 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 The rest of his questionnaire is negative. OBJECTIVE: HEENT: Ears: normal bilaterally. Nose: Normal to anterior rhinoscopy. Mouth: No lesions are seen. Flexible fibreoptic laryngoscopy of the nasopharynx, oropharynx, hypopharynx, and larynx is done. He has the expected scarring and his anterior commissure from his partial laryngectomy, but a patent airway and no evidence of recurrence. NECK: Negative to palpation. ASSESSMENT: Squamous cell carcinoma of the larynx. No evidence of disease. PLAN: We will see him back in 6 months. He will have a chest x-ray by his primary care physician in the interim. Dylan Arthur M.D. [facility] / [id number] / [id number] / [id number] / cc: Maycol Knutson M.D. [address] [place] [address]. Moisés Quezada M.D. [address] [facility] [place] [address]. [id number] signed by Interface, Director Sports In at 12/30/2005 1:06 AM PDTdocume nted in this encounter Plan of Treatment Not on filedocumented as of this encounter Visit Diagnoses Not on filedocumented in this encounter"
--- OUTSIDE RECORDS SUMMARY | ~2019-02-20 | XMS | Encounter Summary ---
Demographics + + + | Address | [address] | | | [place] [address] | + + + | Home Phone | | + + + | Preferred Language | Unknown | + + + | Marital Status | | + + + | Latter Day Affiliation | 1028 | + + + | Race | Unknown | + + + | Ethnic Group | Unknown | + + + Author + + + | Author | [facility] | | | and [place] | + + + | Organization | [facility] | | | [...] [place] | | | | | [address] | | + + + + + Care Team Providers + +------+ + | Care Teacher Of Gifted Students Name | Role | Phone | + +------+ + | Maycol Knutson MD | PCP | | + +------+ + Encounter Details +--------+ + + + + | Date | Type | Department | Care Team | Description | +--------+ + + + + | 04/03/ | Hospital | [facility] | Conversion | Pain | | 2018 | Encounter | CONVERSION [address] | Transaction, | | | | | [address] | Provider Unknown | | | | | [place], [place] | [phone] | | | | | [address] | | | | | | [phone] | | | +--------+ + + + [...] | 03/05/ | Office | Pulmonology | [facility], | | | 2018 | Visit | | Mary Pinto, | | | | | | MD [address] | | | | | | [place], | | | | | | [place] [address] | | | | | | [phone] | | | | | | | | +--------+---------+ + + + | 05/19/ | Office | Cardiology | [place], | | | 2020 | Visit | | [address] | | | | | | [place] | | | | | | [address] | | | | | | | [...] this | | TISSUE | e | 5:05 AM | | procedure are in the | | | | PST | | results section. | + +--------+ + + + documented in this encounter Results US Head Neck Soft Tissue (02/24/2010 5:05 AM PST) + + | Specimen [...]
--- OUTSIDE RECORDS SUMMARY | ~2019-02-20 | XMS | Encounter Summary ---
Demographics + + + | Address | [address] | | | [place] [address] | + + + | Home Phone [...] Team Providers + +------+ + | Care See Wheeler Name | Role | Phone | + +------+ + | Maycol Knutson MD | PCP | | + +------+ + Encounter Details +--------+ + + + + | Date | Type | Department | Care Team | Description | +--------+ + + + + | 01/21/ | Transcribed | | Dictation, Other | Transcribed | | 1998 | | | | | +--------+ + [...] as of this encounter Progress Notes Interface, City Planning Engineer In - 03/16/2006 3:04 AM [facility] [place] [address] [place], [place] [address] or January 22, 1998 AGUSTINA FERNANDEZ MD [address] [place] [address] RE: German Rose MR# [id number] Dear Doctor Damien: As we discussed on the phone, I did see German Rose in consultation. I am in the process of obtaining a CT scan and reviewing his slides to determine the degree of dysplasia carcinoma in situ that is present. I believe that this patient has significant reflux in addition which is contributing and I placed him on Prilosec on a b.i.d. during the healing phase to see if this will help us understand the epithelial process. I will be in touch with you. I appreciate the chance to see him. Sincerely, Dylan Arthur M.D. Food Specialist, Otolaryngology Head and Neck Surgery Jose d ocumented in this encounter Plan of Treatment Not on filedocumented as of this encounter Visit Diagnoses Not on filedocumented in this encounter"
--- OUTSIDE RECORDS SUMMARY | ~2019-02-20 | XMS | Encounter Summary ---
Demographics + + + | Address | [address] | | | [place] [address] | + + + | Home Phone | | + + + | Preferred Language | Unknown | + + + | Marital Status | | + + + | Taoist Affiliation | LUT | + + + [...] Team Providers + +------+ + | Care Contract Specialist Name | Role | Phone | [...] as of this encounter Progress Notes Interface, Technical Solutions Engineer In - 03/22/2006 5:11 AM PSTCLINIC DATE: 02/16/1998 OTOLARYNGOLOGY/HEAD AND NECK SURGERY CLINIC Mr. Rose is seen back preoperatively with respect to the proposed panendoscopy and has a full [place] regarding the proposed procedure and consent was signed. I will see him back tomorrow for surgery. Dylan Arthur M.D. Advanced Practice Professional, Otolaryngology Head and Neck Surgery KRIS:tania d ocumented in this encounter Plan of Treatment Not on filedocumented as of this encounter Visit Diagnoses Not on filedocumented in this encounter"
--- OUTSIDE RECORDS SUMMARY | ~2019-02-20 | XMS | Encounter Summary ---
Demographics + + + | Address | [address] | | | [place] [address] | + + + | Home Phone [...] Team Providers + +------+ + | Care Die Mechanic Name | Role | Phone | + +------+ + | Maycol Knutson MD | PCP | | + +------+ + Encounter Details +--------+ + + + + | Date | Type | Department | Care Team | Description | +--------+ + + + + | 05/09/ | Office | [facility] | Note, Outpatient | Progress Note | | 2001 | Visit-Trans | MEDICINE | Clinic | [...] as of this encounter Progress Notes Interface, Senior Restaurant Manager In - 11/30/2005 6:11 AM PDTCLINIC DATE: 05/09/2001 OTOLARYNGOLOGY HEAD AND NECK SURGERY SUBJECTIVE: 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 He is doing very well and has no new symptoms to suggest a problem. He does have some cramping in his neck muscles, and we discussed the long-term fibrosis that comes in after surgery. PHYSICAL EXAMINATION: HEAD AND NECK: On examination today, his neck is without evidence of new masses. Ears, nose, and mouth are normal to anterior inspection. Flexible fiberoptic laryngoscopy under topical anesthesia is done through the right nostril. Nasopharynx, oropharynx, hypopharynx, larynx, and subglottic areas are well seen. They are all well mucosalized. There is no evidence of any recurrent disease. 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 PLAN: Follow up with me in 6 months. He had a recent chest x-ray by his primary care physician and it is normal. Dylan Arthur M.D. [facility] / [id number] / [id number] / [id number] / cc: Moisés Quezada M.D. [address] [facility] [address] [place], [place] [address] Maycol Knutson M.D. [address] [facility]. [address] [place] [address] [id number] signed by Interface, Senior Restaurant Manager In at 11/30/2005 6:11 AM PDTdoc umented in this encounter Plan of Treatment Not on filedocumented as of this encounter Visit Diagnoses Not on filedocumented in this encounter"
--- OUTSIDE RECORDS SUMMARY | ~2019-02-20 | XMS | Encounter Summary ---
Demographics + + + | Address | [address] | | | [place] [address] | + + + | Home Phone [...] Team Providers + +------+ + | Care Pound Keeper Name | Role | Phone | + +------+ + | Maycol Knutson MD | PCP | | + +------+ + Encounter Details +--------+ + + + + | Date | Type | Department | Care Team | Description | +--------+ + + + + | 09/21/ | Results | Registration [id number] | | | | 1998 | Only | [address] | | | | | | Leonardo Mailcode: [id number] | | | | | | [place], [place] | | | | | | [address] | | | | | | [phone] | | | +--------+ + + + [...] | CBC TESTS 2 | Routin | 09/21/1998 | | Results for this | | | e | 3:15 PM | | procedure are in the | | | | PDT | | results section. | + +--------+ + + + documented in this encounter Results CBC TESTS 2 (09/21/1998 3:15 PM PDT) + + + + + + | Component | Value | Ref Range | Performed | Pathologist | | | | | At | Signature | + + + + + + | WHITE CELL | 6.2 | K/CU MM | | | | COUNT | | | | | + + + + + + | RED CELL | 4.22 (L) | M/CU MM | | | | COUNT | | | | | + + + + + + | HEMOGLOBIN | 13.1 (L) | GM/DL | | | + + + + + + | HEMATOCRIT | 38.2 (L) | % | | | + + + + + + | MCV | 90.6 | FL | | | + + + + + + | MCH | 31. | PG | | | + + + + + + | MCHC | 34.2 | GM/DL | | | + + + + + + | RDW | 12.1 | % | | | + + + + + + | PLATELET | 247. | K/CU MM | | | | COUNT | | | | | + + + + + + | MPV | 9. | FL | | | + + + + + + + + | Specimen | + + | | + + + + + + + | Performing | Address | City/State/Zipcode | Phone Number | | Organization | | | | + + + + + | [facility] | [address] | [place] [address] | | | PATHOLOGY | [address] | | | + + + + + documented in this encounter Visit Diagnoses Not on filedocumented in this encounter"
--- OUTSIDE RECORDS SUMMARY | ~2019-02-20 | XMS | Encounter Summary ---
Demographics + + + | Address | [address] | | | [place] [address] | + + + | Home Phone | | + + + | Preferred Language | Unknown | + + + | Marital Status | | + + + | Adventist Affiliation | 1028 | + + + | Race | Unknown | + + + | Ethnic Group | Unknown | + + + Author + + + | Author | [facility] | | | and [place] | + + + | Organization | [facility] | | | [...] [place] | | | | | [address] | | + + + + + Care Team Providers + +------+ + | Care Gold Beater Name | Role | Phone | + +------+ + PCP | Unavailable | + +------+ + Encounter Details +--------+ + + + + | Date | Type | Department | Care Team | Description | +--------+ + + + + | 09/26/ | Hospital | [facility] | Zaheer Webster MD | GASTROINTEST HEMORR | | 2003 - | Encounter | [facility] | [address] | NOS | | | | CLINICAL DECISION | [place] [address] | | | 09/29/ | | [address] | [phone] | | | 2003 | | [place], [place] | | | | | | [address] | | | | | | [phone] | | | +--------+ + + + [...] | | | | | | [place] [address] | | | | | | [phone] | | | | | | | | +--------+---------+ + + + | 05/19/ | Office | Cardiology | Cristian Mccoy, | | | 2019 | Visit | | [address] | | | | | | [place] | | | | | | [address] | | | | | | | | +--------+---------+ + + + documented as of this encounter Visit Diagnoses + + | Diagnosis | + + | Hemorrhage of gastrointestinal tract, unspecified | + + documented in this encounter"
--- OUTSIDE RECORDS SUMMARY | ~2019-02-20 | XMS | Encounter Summary ---
Demographics + + + | Address | [address] | | | [place] [address] | + + + | Home Phone | | + + + | Preferred Language | Unknown | + + + | Marital Status | | + + + | Adventism Affiliation | 1028 | + + + | Race | Unknown | + + + | Ethnic Group | Unknown | + + + Author + + + | Author | [facility] | | | and [place] | + + + | Organization | [facility] | | [...] [place] | | | | | [address] | | + + + + + Care Team Providers + +------+ + | Care Factory Maintenance Technician Name | Role | Phone | + +------+ + | Maycol Knutson MD | PCP | | + +------+ + Reason for Visit +--------+ + | Reason | Comments | +--------+ + | Apnea | | +--------+ + Encounter Details +--------+---------+ + + + | Date | Type | Department | Care Team | Description | +--------+---------+ + + + | 01/22/ | Office | [facility] | Sharan Bruno | Central sleep apnea | | 2012 | Visit | SLEEP DISORDER [address] | MD [address] | due to Victoriano-Tomas | | | | [address] | [address] [place] | respiration | | | | [place] [address] | [place] [address] | (Primary Dx) | | | | [phone] | [phone] | | | | | | | [...] + + + | Blood Pressure | 116/60 | 01/22/2013 8:49 AM | | | | | PST | | + + + + + | Pulse | 82 | 01/22/2013 8:49 AM | | | | | PST | | + + + + + | Temperature | - | - | | + + + + + | Respiratory Rate | 16 | 01/22/2013 8:49 AM | | | | | PST | | + + + + + | Oxygen Saturation | 97% | 01/22/2013 8:49 AM | | | | | PST | | + + + + + | Inhaled Oxygen | - | - | | | Concentration | | | | + + + + + | Weight | 86.6 kg (191 lb) | 01/22/2013 8:49 AM | | | | | PST | | + + + + + | Height | - | - | | + + + + + | Body Mass Index | 30.83 | 12/15/2012 1:28 PM | | | | | PDT | | + + + + + documented in this encounter Progress Notes Sharan Bruno Jr., MD - 01/22/2013 9:40 AM PSTThe patient underwent successful ASV-BiPA P titration last night. 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 I've discussed this again wi him and I've discussed ASV-BiPAP. P: ASV- BiPAP prescribed (EPAP = 4cm;PSmin=0cm;PSmax=25cm;backup rate=auto) F/u early next week in [facility] Today, 15 minutes was spent face to face with the patient; the majority of time was spent c giuliana. CC: Dr. 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
--- OUTSIDE RECORDS SUMMARY | ~2019-02-20 | XMS | Encounter Summary ---
Demographics + + + | Address | [address] | | | [place] [address] | + + + | Home Phone | | + + + | Preferred Language | Unknown | + + + | Marital Status | | + + + | Zoroastrian Affiliation | LUT | + + + | Race | White | + + + | Ethnic Group | Not or | + + + Author + + + | Author | [facility] | + + + | Organization | [facility] | + + + | Address | Unknown | + + + | Phone | Unavailable | + + + Support + + +---------+ + | Name | Relationship | Address | Phone | + + +---------+ + | Blossom Rose | ECON | Unknown | | + + +---------+ + Care Team Providers + +------+ + | Care Recycling Assistant Name | Role | Phone | + +------+ + | Maycol Knutson MD | PCP | | + +------+ + Encounter Details +--------+ + + + + | Date | Type | Department | Care Team | Description | +--------+ + + + + | 03/08/ | Office | [facility] | Note, [...] as of this encounter Progress Notes Interface, Adjunct Faculty Mathematics Department In - 01/22/2006 1:04 AM PSTCLINIC DATE: 03/08/2000 OTOLARYNGOLOGY HEAD AND NECK SURGERY SUBJECTIVE: Mr. 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 His voice remains hoarse but stable. His airway is adequate for all but the most strenuous of activities. PHYSICAL EXAMINATION: Today, there is no adenopathy in the neck. Flexible fiberoptic laryngoscopy is done. It reveals some diminished mucosa over the area of previous granulation in his anterior glottis, but otherwise complete resolution of the edema of his glottis and really very reasonable glottic aperture with only mild restriction of his right vocal cord mobility. 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 PLAN: We will see him back in 2 months. Dylan Arthur M.D. [facility] / [id number] / [id number] / [id number] / [id number] signed by Interface, Adjunct Faculty Mathematics Department In at 01/22/2006 1:04 AM PSTdocume nted in this encounter Plan of Treatment Not on filedocumented as of this encounter Visit Diagnoses Not on filedocumented in this encounter"
--- OUTSIDE RECORDS SUMMARY | ~2019-02-20 | XMS | Encounter Summary ---
Demographics + + + | Address | [address] | | | [place] [address] | + + + | Home Phone | | + + + | Preferred Language | Unknown | + + + | Marital Status | | + + + | Shinto Affiliation | 1028 | + + + | Race | Unknown | + + + | Ethnic Group | Unknown | + + + Author + + + | Author | [facility] | | | and [place] | + + + | Organization | [facility] | | [...] [place] | | | | | [address] | | + + + + + Care Team Providers + +------+ + | Care Eye Technician Name | Role | Phone | [...] | | | Services | Medicine | [place] | hSaran Sidhu | [place] [address] | | | Required | | sleep apnea | MD [address] | [address] | | | | | due to | [address] | [place], | | | | | Victoriano-Stoke | [place] | [place] [address] | | | | | s | [place] | Phone: | | | | | respiration | [address] | [phone] | | | | | [place] | Phone: | Fax: | | | | | (obstructive | [phone] | [phone] | | | | | sleep | Fax: | | | | | | apnea) | [phone] | | | | | | Procedures | | | | | | | [place] | | | | | | [...] + + | 12/02/ | Office | [facility] | Sharan Bruno | Central sleep apnea | | 2014 | Visit | SLEEP DISORDER [address] | MD [address] | due to Victoriano-Tomas | | | | [address] [place] | [address] [place] | respiration | | | | [place] [address] | [place] [address] | (Primary Dx); [place] | | | | [phone] | [phone] | (obstructive sleep | | | | [...] Coronary artery bypass graft (1995); Esophagus allegra mrata (1998); Knee arthroscopy (1976); hernia repair (2005); [...] mcg/mL injection injected intramuscularly once a mo [facility] digoxin (LANOXIN) 250 mcg tablet [...] helpful rather than ASV-BPAP. He is on [place] for pain and I have encouraged him [...] | | | | | | [place] [address] | | | | | | [phone] | | | | | | | | +--------+---------+ + + + | 05/19/ | Office | Cardiology | Cristian Mccoy, | | | 2019 | Visit | | MD [address] | | | | | | [place] | | | | | | [address] | | | | | | | [...]
--- OUTSIDE RECORDS SUMMARY | ~2019-02-20 | XMS | Encounter Summary ---
Demographics + + + | Address | [address] | | | [place] [address] | + + + | Home Phone | | + + + | Preferred Language | Unknown | + + + | Marital Status | | + + + | Mandaen Affiliation | 1028 | + + + | Race | Unknown | + + + | Ethnic Group | Unknown | + + + Author + + + | Author | [facility] | | | and [place] | + + + | Organization | [facility] | | [...] [place] | | | | | [address] | | + + + + + Care Team Providers + +------+ + | Care Trial Lawyer Name | Role | Phone | + [...] Provider Unknown | | | | | [place], [place] | [phone] | | | | | [address] | | | | | | [phone] | | | +--------+ + + + [...] | 03/05/ | Office | Pulmonology | [facility], | | | 2018 | Visit | | Mary Pinto, | | | | | | MD [address] | | | | | | [place], | | | | | | [place] [address] | | | | | | [phone] | | | | | | | | +--------+---------+ + + + | 05/19/ | Office | Cardiology | [place], [place], | | | 2020 | Visit | | [address] | | | | | | [place] | | | | | | [address] | | | | | | | [...]
--- OUTSIDE RECORDS SUMMARY | ~2019-02-20 | XMS | Encounter Summary ---
Demographics + + + | Address | [address] | | | [place] [address] | + + + | Home Phone | | + + + | Preferred Language | Unknown | + + + | Marital Status | | + + + | Yarsani Affiliation | LUT | + + + | Race | White | + + + | Ethnic Group | Not or | + + + Author + + + | Author | [facility] | + + + | Organization | [facility] | + + + | Address | Unknown | + + + | Phone | Unavailable | + + + Support + + +---------+ + | Name | Relationship | Address | Phone | + + +---------+ + | Blossom Rose | ECON | Unknown | | + + +---------+ + Care Team Providers + +------+ + | Care Superintendent Menagerie Name | Role | Phone | + [...] [address] | | | | | | [place], [place] | | | | | | [address] | | | | | | [phone] | | | +--------+ + + + [...] | + + + + + | [facility] | [address] | [place] [address] | | | PATHOLOGY | [address] [...] | + + + + + | [facility] | [address] | [place] [address] | | | PATHOLOGY | [address] [...] | + + + + + | [facility] | [address] | [place] [address] | | | PATHOLOGY | [address] [...] | + + + + + | [facility] | [address] | [place] [address] | | | PATHOLOGY | [address] | | | + + + + + documented in this encounter Visit Diagnoses Not on filedocumented in this encounter"
--- OUTSIDE RECORDS SUMMARY | ~2019-02-20 | XMS | Encounter Summary ---
Demographics + + + | Address | [address] | | | [place] [address] | + + + | Home Phone | | + + + | Preferred Language | Unknown | + + + | Marital Status | | + + + | Orthodoxy Affiliation | 1028 | + + + | Race | Unknown | + + + | Ethnic Group | Unknown | + + + Author + + + | Author | [facility] | | | and [place] | + + + | Organization | [facility] | | [...] [place] | | | | | [address] | | + + + + + Care Team Providers + +------+ + | Care Sewing Machines Salesperson Name | Role | Phone | + [...] | | | Services | Medicine | [place] | Sharan Sidhu | [place] [address] | | | Required | | sleep apnea | MD [address] | [address] | | | | | Procedures | [address] | [place], | | | | | [place] POLYSOM | [facility] | [place] [address] | | | | | 6/>YRS SLEEP | [place], [place] | Phone: | | | | | 4/> ADDL | [address] | [phone] | | | | | [place] | Phone: | Fax: | | | | | [address] | [phone] | [phone] | | | | | | Fax: | | | | | | | [phone] | | +--------+ + + + + + Encounter Details +--------+ + + + + | Date | Type | Department | Care Team | Description | +--------+ + + + + | 08/30/ | Hospital | [facility] | Sharan Bruno | Central sleep apnea | | 2015 | Encounter | MED CTR SLEEP | MD [address] | (Primary Dx); | | | | CENTER [address] | [address] [facility] | Central sleep apnea | | | | [place], [place] | [place] [address] | due to Victoriano-Tomas | | | | [address] | [phone] | respiration; [place] | | | | [phone] | | (obstructive sleep | | | [...] | | | | | | [place] [address] | | | | | | [phone] | | | | | | | | +--------+---------+ + + + | 05/19/ | Office | Cardiology | Cristian Mccoy, | | | 2019 | Visit | | [address] | | | | | | [place] | | | | | | [address] | | | | | | | [...]
--- OUTSIDE RECORDS SUMMARY | ~2019-02-20 | XMS | Encounter Summary ---
Demographics + + + | Address | [address] | | | [place] [address] | + + + | Home Phone [...] Providers + +------+ + | Care Senior Compensation Analyst Name | Role | Phone | [...] Esophageal | Alexei S, | [address] | | | | | stenosis | MD [address] | [address] | | | | | Procedures | [address] | Mailcode: | | | | | X-RAY | [place] [place] | [facility] | | | | | ESOPHAGRAM | [facility] [place] | for Health | | | | | | [address] | and Healing, | | | | | | Phone: | [facility] 1, | | | | | | [phone] | 3rd Floor | | | | | | Fax: | [place], [place] | | | | | | [phone] | [address] | | | | | | | Phone: | | | | | | | [phone] | | | | | | | Fax: | | | | | | | [phone] | +--------+--------+ + + + + Encounter Details +--------+ + + + + | Date | Type | Department | Care Team | Description | +--------+ + + + + | 11/30/ | Hospital | Diagnostic Imaging | | | | 2009 | Encounter | Services at [facility] | | | | | | [address] | | | | | | [place] Mailcode: | | | | | | [address] [facility] | | | | | | [place], [place] | | | | | | [address] | | | | | | [phone] | | | +--------+ + + + [...] + + + +---------+ + + | ACYCLOVIR ORAL | Take by mouth as | | 0 | 09/15/19 | | | | needed. | | | 10 | | + + + +---------+ + + | | Take by mouth. | | 0 | | | | Amlodipine-Atorvasta | | | | | | | tin (CADUET) 10-10 | | | | | | | mg Oral Tablet | | | | | | + + + +---------+ + + | CYANOCOBALAMIN | by Injection route | | 0 | 09/15/19 | | | (VITAMIN B-12 INJ) | every thirty days. | | | 10 | | + + + +---------+ + + | gabapentin 300 mg | Take 300 mg by mouth | | 0 | | | | Oral Tablet | three times daily. | | | | | + + + +---------+ + + | LANSOPRAZOLE | Take by mouth. | | 0 | | | | (PREVACID ORAL) | | | | | | + + + +---------+ + + | LORATADINE | Take by mouth. | | 0 | | | | (CLARITIN ORAL) | | | | | | + + + +---------+ + + | metoclopramide | Take 5 mg by mouth | | 0 | | | | (REGLAN) 5 mg Oral | every six hours as | | | | | | Tablet | needed. | | | | | + + + +---------+ + + | NAPROXEN | Take by mouth. | | 0 | | | | SODIUM/P-EPHED HCL | | | | | | | (SUDAFED 12 HR | | | | | | | SINUS-PAIN ORAL) | | | | | | + + + +---------+ + + | sertraline | Take 50 mg by mouth | | 0 | | | | (ZOLOFT) 50 mg Oral | once daily. | | | | | | Tablet | | | | | | + + + +---------+ + + | tamsulosin | Take 0.4 mg by mouth | | 0 | | | | (FLOMAX) 0.4 mg Oral | once daily. | | | | | | Capsule, Sust. | | | | | | | Release 24 hr | | | | | | + + + +---------+ + + | TESTOSTERONE IM | Inject into the | | 0 | | | | | muscle (IM). | | | | | + + + +---------+ + + | VICODIN ORAL | None Entered | | 0 | | | + + + +---------+ + + documented as of this encounter Plan of Treatment Not on filedocumented as of this encounter Procedures + +--------+ + + + | Procedure Name | Priori | Date/Time | Associated Diagnosis | Comments | | | ty | | | | + +--------+ + + + | X-RAY ESOPHAGRAM | Routin | 11/30/2009 | Esophageal | Results for this | | | e | 10:14 AM | stenosis | procedure are in the | | | | PDT | | results section. | + +--------+ + + + documented in this encounter Results X-RAY ESOPHAGRAM (11/30/2009 10:14 [...] | | | | STATUS FINAL / | | | | | | HETAL HUSSEIN | | | | + + + + + + + + | Specimen | + + | | + + + +---------+ + + | Performing | Address | City/State/Zipcode | Phone Number | | Organization | | | | + +---------+ + + | [facility] DEPARTMENT OF | | | | | RADIOLOGY | | | | + +---------+ + + documented in this encounter Visit Diagnoses + + | Diagnosis | + + | Esophageal stenosis Stricture and stenosis of esophagus | + + documented in this encounter"
--- OUTSIDE RECORDS SUMMARY | ~2019-02-20 | XMS | Encounter Summary ---
Demographics + + + | Address | [address] | | | [place] [address] | + + + | Home Phone [...] Team Providers + +------+ + | Care Vamp Strap Ironer Name | Role | Phone | + +------+ + | Maycol Knutson MD | PCP | | + +------+ + Encounter Details +--------+ + + + + | Date | Type | Department | Care Team | Description | +--------+ + + + + | 04/27/ | Documentati | Anesthesiology | Unknown . | | | 1999 | on | [address] | | | | | | [place], | | | | | | [place] [address] | | | +--------+ + + + [...] + + documented in this encounter Results ANESTHESIA/SEDATION (04/27/1999 11:24 AM PST) + + + | Narrative | Performed At | + + + | Ordered by an unspecified provider. | | + + + + + | Transcriptions | + + | 04/27/1999 11:24 AM [facility] Anesthesia PostOp Report | | | | Patient: GERMAN ROSE Med Rec: [id number] Sex M Bdate: 1945 | | Date/Time Data | | Entered Into [facility] | | Anesth PostOp | | Surgery Date [id number] 04/27/99 11:24 | | [id number] 01/12/99 11:31 | | Anesthesiologist RICKEY PEPPER 04/27/99 11:24 | | RICKEY MUÑOZ 01/12/99 11:31 | | Resident Anesthesiolog JESSICA INFANTE 01/12/99 11:31 | | | + + documented in this encounter Visit Diagnoses Not on filedocumented in this encounter"
--- OUTSIDE RECORDS SUMMARY | ~2019-02-20 | XMS | Encounter Summary ---
Demographics + + + | Address | [address] | | | [place] [address] | + + + | Home Phone | | + + + | Preferred Language | Unknown | + + + | Marital Status | | + + + | Hindu Affiliation | 1028 | + + + | Race | Unknown | + + + | Ethnic Group | Unknown | + + + Author + + + | Author | [facility] | | | and [place] | + + + | Organization | [facility] | | [...] [place] | | | | | [address] | | + + + + + Care Team Providers + +------+ + | Care Fulfillment Associate Name | Role | Phone | + +------+ + | Maycol Knutson MD | PCP | | + +------+ + Encounter Details +--------+---------+ + + + | Date | Type | Department | Care Team | Description | +--------+---------+ + + + | 12/29/ | Office | [facility] | Sharan Bruno | Central sleep apnea | | 2012 | Visit | SLEEP DISORDER [address] | MD [address] | due to Victoriano-Tomas | | | | [address] [place] | [address] [place] | respiration | | | | [place] [address] | [place] [address] | (Primary Dx); NOLA | | | | [phone] | [phone] | (obstructive sleep | | | | [...] + + + | Blood Pressure | 132/62 | 12/29/2012 9:55 AM | | | | | PDT | | + + + + + | Pulse | 52 | 12/29/2012 9:55 AM | | | | | PDT | | + + + + + | Temperature | - | - | | + + + + + | Respiratory Rate | 16 | 12/29/2012 9:55 AM | | | | | PDT | | + + + + + | Oxygen Saturation | - | - | | + + + + + | Inhaled Oxygen | - | - | | | Concentration | | | | + + + + + | Weight | 91.3 kg (201 lb 3.2 | 12/29/2012 9:55 AM | | | | oz) | PDT | | + + + + + | Height | - | - | | + + + + + | Body Mass Index | 32.47 | 12/15/2012 1:28 PM | | | | | PDT | | + + + + + documented in this encounter Patient Instructions Patient Instructions Sharan Bruno Jr., MD - 12/29/2012 11:11 AM PDTYou have a combinati on of Obstructive Sleep Apnea and Central Sleep Apnea. We will bring you back into the sleep center for a BiPAP titration study.Electronically signed by Sharan Bruno Jr., MD at 12/16 11:12 AM PDT documented in this encounter Progress Notes Sharan Bruno Jr., MD - 12/29/2012 11:03 AM Prasanna Rose underwent attended polysomnog loretta on 12/22/2012 which revealed a latency to sleep onset of 5.5 minutes and a sleep effici ency of 84.5%. The percentages of the various stages of sleep were Abnormal. There was no N3 sleep and the amount of REM sleep was markedly reduced at 2.5%. The arousal index was 82.7 which is high. The Respiratory Disturbance Index was 77.4; the Apnea-Hypopnea Index was 77.4 ; and the Apnea-Index was 56.2. Most of the Apneas were Central Apneas of the Victoriano-Tomas type. The Respiratory Arousal Index was 65.5. The staci oxygen saturation recorded during s leep was 86.0%. The patient spent 15.8 minutes with an oxygen saturation of less than 88%. T here were 91 Periodic Limb Movements and the PLMS Arousal Index was 1.3 (which is normal). I 've reviewed these results with the patient and his . A: [place] CSA of the Victoriano-Tomas type I've discussed this in detail with the patient and his - she has actually notice that his snoring has recently declined and the "quiet" apneas have dramatically increased. The on ly thing that has changed has been the recent institution of prednisone (he is tapering off of this) and low dose weekly methotrexate. Usually when one sees CSA of the Victoriano-Tomas va riety it is associated with heart disease. CSA of the "ataxic" type is often associated with significant to high doses of narcotics. I've discussed the use of BiPAP therapy (ASV-BiPAP in particular) for CERTIFIED RESIDENTIAL MEDICATION AIDE. P: PSG guided PAP titration - the titration will start with simple CPAP (which is sometimes effective even in CERTIFIED RESIDENTIAL MEDICATION AIDE) but if centrals and Victoriano's Tomas persist, then we will switch to an ASV BiPAP titration protocol: EPAP will be raised only for clear cut obstructive apneas. PS will be set to 0-25cm. RR will be set to auto. F/u thereafter. Today, 15 minutes was spent face to face with the patient; the majority of time was spent kang giordano. CC: Dr. Aurea Knutson, Dr. 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
--- OUTSIDE RECORDS SUMMARY | ~2019-02-20 | XMS | Encounter Summary ---
Demographics + + + | Address | [address] | | | [place] [address] | + + + | Home Phone | | + + + | Preferred Language | Unknown | + + + | Marital Status | | + + + | Presybeterian Affiliation | LUT | + + + [...] Team Providers + +------+ + | Care Granulizing Machine Operator Name | Role | Phone [...] as of this encounter Progress Notes Interface, Clockmaker Apprentice In - 12/30/2005 1:06 AM PDTCLINIC DATE: [...] physician in the interim. Dylan Arthur M.D. [facility] / [id number] / [id number] / [id number] / cc: Maycol Knutson M.D. [address] [place] [address]. Moisés Quezada M.D. [address] [facility] [place] [address]. [id number] signed by Interface, Clockmaker Apprentice In at 12/30/2005 1:06 AM PDTdocume nted in this encounter Plan of Treatment Not on filedocumented as of this encounter Visit Diagnoses Not on filedocumented in this encounter"
--- OUTSIDE RECORDS SUMMARY | ~2019-02-20 | XMS | Encounter Summary ---
Demographics + + + | Address | [address] | | | [place] [address] | + + + | Home Phone | | + + + | Preferred Language | Unknown | + + + | Marital Status | | + + + | Sabianist Affiliation | 1028 | + + + [...] [place] | | | | | [address] | | + + + + + Care Team Providers + +------+ + | Care Python Engineer Name | Role | Phone | + +------+ + | Nelson Laird MD | PCP | | + +------+ + Encounter Details +--------+ + + + + | Date | Type | Department | Care Team | Description | +--------+ + + + + | 10/03/ | Orders Only | [facility] | Antoni Adal Lynch, | | | 2015 | | [address] | DO | | | | | [place] | | | | | | [address] | | | | | | [phone] | | | +--------+ + + + [...] | | | | | | [place] [address] | | | | | | [phone] | | | | | | | | +--------+---------+ + + + | 05/19/ | Office | Cardiology | Cristian Mccoy, | | | 2019 | Visit | | MD [address] | | | | | | [place] | | | | | | [address] | | | | | | | | +--------+---------+ + + + documented as of this encounter Procedures + +--------+ + + + | Procedure Name | Priori | Date/Time | Associated Diagnosis | Comments | | | ty | | | | + +--------+ + + + | CULTURE, ANAEROBIC | Routin | 10/04/2015 | | Results for this | | | e | 12:01 AM | | procedure are in the | | | | PDT | | results section. | + +--------+ + + + documented in this encounter Results Culture, Anaerobic (10/04/2015 12:01 AM PDT) + + | Specimen | + + | | + + + + + | Narrative | Performed At | + + + | Specimen Description OTHER GRAM STAIN | EXTERNAL LAB | | 2+ | | | WBC'S SEEN | | | 1+ | | | EPITHELIAL CELLS | | | NO ORGANISMS SEEN CULTURE | | | 2+ | | | PSEUDOMONAS SPECIESAbnormal | | | 1+ | | | NORMAL UPPER RESPIRATORY MELINDA | | | NO FURTHER WORKUP | | | Suscepibility for - PSEUDOMONAS SPECIES Ceftazidime | | | SUSCEPTIBLESensitive Ciprofloxacin | | | SUSCEPTIBLESensitive Gentamicin | | | SUSCEPTIBLESensitive Levofloxacin | | | SUSCEPTIBLESensitive Tobramycin | | | SUSCEPTIBLESensitive | | + + + + +---------+ + + | Performing | Address | City/State/Zipcode | Phone Number | | Organization | | | | + +---------+ + + | EXTERNAL LAB | | | | + +---------+ + + documented in this encounter Visit Diagnoses Not on filedocumented in this encounter"
--- OUTSIDE RECORDS SUMMARY | ~2019-02-20 | XMS | Encounter Summary ---
Demographics + + + | Address | [address] | | | [place] [address] | + + + | Home Phone | | + + + | Preferred Language | Unknown | + + + | Marital Status | | + + + | Sikhism Affiliation | 1028 | + + + [...] [place] | | | | | [address] | | + + + + + Care Team Providers + +------+ + | Care Press Smith Helper Name | Role | Phone | [...] | | | Services | Medicine | [place] | Sharan Sidhu | [place] [address] | | | Required | | sleep apnea | MD [address] | [address] | | | | | Procedures | [address] [place] | [place], | | | | | CO POLYSOM | [facility] | [place] [address] | | | | | 6/>YRS SLEEP | [place], [place] | Phone: | | | | | 4/> ADDL | [address] | [phone] | | | | | SARAH ATTND | Phone: | Fax: | | | | | [address] | [phone] | [phone] | | | | | | Fax: | | | | | | | [phone] | | +--------+ + + + + [...] Chronic | Sharan D | [address] | | | | | systolic | MD [address] | [place], | | | | | heart | [place] | [place] | | | | | failure | St [place] | [address] | | | | | (HCC) | [place], [place] | Phone: | | | | | Unspecified | [address] | [phone] | | | | | sleep apnea | Phone: | Fax: | | | | | Procedures | [phone] | [phone] | | | | | ECHO | Fax: | | | | | | Complete [place] | [phone] | | | | | | ECHO HEART | | | | | | | XTHORACIC,[place] | | | | | | | MPLETE W | | | | | | | DOPPLER [place] | | | | | | | [...] + + | 08/06/ | Office | [facility] | Sharan Bruno | Central sleep apnea | | 2015 | Visit | SLEEP DISORDER [address] | MD [address] | (Primary Dx); | | | | [address] [place] | [address] [place] | Chronic systolic | | | | [place] [address] | [place] [address] | heart failure (HCC) | | | | [phone] | [phone] | | | | | | | [...] of 56.2 (29 obstructive apneas, 10 mixed fisher eas, 380 central apneas (most Victoriano-Tomas) and [...] | | | | | | [place] [address] | | | | | | [phone] | | | | | | | | +--------+---------+ + + + | 05/19/ | Office | Cardiology | Cristian Mccoy, | | | 2019 | Visit | | MD [address] | | | | | | [place] | | | | | | [address] | | | | | | | [...] Performed At | + + + | [facility] ECHOCARDIOGRAM REPORT | [facility] | | STUDY DATE: 08/12/2014 PATIENT NAME: German Rose : | [facility] | | 1945 PCP: Maycol Knutson MD | [facility] | | CLINICAL HISTORY/DIAGNOSIS: A-fib, heart [...] | | | size is normal with nfjv-yi-sglfeshb concentric left ventricular | | | hypertrophy, [...] left | | | atrial dilatation. 2. Vzwc-xd-znuduqnj concentric left ventricular | | | hypertrophy. [...] | | Signed by: Kaitlynn Small MD [facility] 08/12/2014 9:20 | | | Home Care Manager Rn: Neris Scott, GODWINCS, RDMS, RT | | + + + + + + + + | Performing | Address | City/State/Zipcode | Phone Number | | Organization | | | | + + + + + | [facility] | [address] | [place], [place] | [phone] | | [facility] | | [address] | | | - IMAGING | | | | + + + + + documented in this encounter Visit Diagnoses + + | Diagnosis | + + | Central sleep apnea - Primary Unspecified sleep apnea | + + | Chronic systolic heart failure (HCC) Chronic systolic heart failure | + + documented in this encounter
--- OUTSIDE RECORDS SUMMARY | ~2019-02-20 | XMS | Encounter Summary ---
Demographics + + + | Address | [address] | | | [place] [address] | + + + | Home Phone | | + + + | Preferred Language | Unknown | + + + | Marital Status | | + + + | Yazdanism Affiliation | LUT | + + + | Race | White | + + + | Ethnic Group | Not or | + + + Author + + + | Author | [facility] | + + + | Organization | [facility] | + + + | Address | Unknown | + + + | Phone | Unavailable | + + + Support + + +---------+ + | Name | Relationship | Address | Phone | + + +---------+ + | Blossom Rose | ECON | Unknown | | + + +---------+ + Care Team Providers + +------+ + | Care Facilities Maintenance Engineer Name | Role | Phone | [...] | | | | [address] [facility] | [place], [place] | | | | | [address] | [address] | | | | | [place], [place] | [phone] | | | | | [address] | | | | | | [phone] | | | +--------+ + + + [...] | | + +---------+ + + | [facility] DEPARTMENT OF | | | | | RADIOLOGY | | | | + +---------+ + + documented in this encounter Visit Diagnoses Not on filedocumented in this encounter"
--- OUTSIDE RECORDS SUMMARY | ~2019-02-20 | XMS | Encounter Summary ---
Demographics + + + | Address | [address] | | | [place] [address] | + + + | Home Phone | | + + + | Preferred Language | Unknown | + + + | Marital Status | | + + + | Voodoo Affiliation | 1028 | + + + | Race | Unknown | + + + | Ethnic Group | Unknown | + + + Author + + + | Author | [facility] | | | and [place] | + + + | Organization | [facility] | | | [...] [place] | | | | | [address] | | + + + + + Care Team Providers + +------+ + | Care Carcass Washer Name | Role | Phone | + [...] | | | | | (AAA) | [facility] [place] | | | | | | without | [address] | | | | | | rupture | Phone: | | | | | | (HCC) | [phone] | | | | | | Carotid | Fax: | | | | | | stenosis, | [phone] | | | | | | bilateral [...] | | | | | (AAA) | [place], [place] | | | | | | without | [address] | | | | | | rupture | Phone: | | | | | | ([facility]) | [phone] | | | | | | Carotid | Fax: | | | | | | stenosis, | [phone] | | | | | | bilateral [...] + + | 01/19/ | Office | [facility] | Bridget Milian DNP | Abdominal aortic | | 2019 | Visit | VASCULAR SURGERY | [address] | aneurysm (AAA) | | | | [address] [place] | [place], [place] | without rupture | | | | [place], [place] | [address] | (HCC) (Primary Dx); | | | | [address] | | Carotid stenosis, | | | | [phone] | | bilateral | +--------+---------+ + + [...] Bridget Milian DNP - 01/19/2019 12:00 PM [facility] [address] [address] Office: [phone] DATE OF VISIT: 01/19/2019 PATIENT NAME: German Rose : 1945; AGE: 73 y.o.; Sex:M PHONE NUMBER: ; ; PROVIDER: Bridget Milian DNP PRIMARY CARE / REFERRING PHYSICIAN: Wellington Puga MD / [facility] / [address] / [place] [address] REASON FOR EVALUATION / CHIEF COMPLAINT: EVALUATION AND TREATMENT OF ABDOMINAL AORTIC ANEUR YSM AND CAROTID STENOSIS HISTORY OF PRESENT ILLNESS: German Rose is a 73 y.o. male patient who [...] | | | | | | [place] [address] | | | | | | [phone] | | | | | | | | +--------+---------+ + + + | 05/19/ | Office | Cardiology | Cristian Mccoy, | | | 2019 | Visit | | MD [address] | | | | | | [place] | | | | | | [address] | | | | | | | [...]
--- OUTSIDE RECORDS SUMMARY | ~2019-02-20 | XMS | Encounter Summary ---
Demographics + + + | Address | [address] | | | [place] [address] | + + + | Home Phone [...] Team Providers + +------+ + | Care Licensed Midwife Name | Role | Phone | + +------+ + | Maycol Knutson MD | PCP | | + +------+ + Encounter Details +--------+ + + + + | Date | Type | Department | Care Team | Description | +--------+ + + + + | 05/18/ | Office | [facility] | Note, [...] as of this encounter Progress Notes Interface, Malt House Loader In - 02/10/2006 3:18 AM PSTCLINIC DATE: 05/19/1999 OTOLARYNGOLOGY - HEAD AND NECK SURGERY Mr. Rose is seen back in followup today after largyngotracheoplasty. He is really doing pretty well. He has some stitches which have not yet dissolved and I removed these from his neck as well from his upper chest at the cartilage graft site. Flexible fiberoptic laryngoscopy is done revealing that the cartilage graft is still not completing mucosalized anteriorly but that the stent is in good position and is patent. It does not appear to be significantly interfering with his airway either supraglottically or subglottically, although, he does have a moderate amount of supraglottic swelling. I think it part related to both the operation of the stent as well his radiation. He will continue on antibiotics, and I have refilled a prescription for clindamycin. I will see him back here in approximately a month's time. Dylan Arthur M.D. [facility] / [id number] / [id number] / [id number] / [id number] Tdocumented in this encounter Plan of Treatment Not on filedocumented as of this encounter Visit Diagnoses Not on filedocumented in this encounter"
--- OUTSIDE RECORDS SUMMARY | ~2019-02-20 | XMS | Encounter Summary ---
Demographics + + + | Address | [address] | | | [place] [address] | + + + | Home Phone | | + + + | Preferred Language | Unknown | + + + | Marital Status | | + + + | Islam Affiliation | LUT | + + + | Race | White | + + + | Ethnic Group | Not or | + + + Author + + + | Author | [facility] | + + + | Organization | [facility] | + + + | Address | Unknown | + + + | Phone | Unavailable | + + + Support + + +---------+ + | Name | Relationship | Address | Phone | + + +---------+ + | Blossom Rose | ECON | Unknown | | + + +---------+ + Care Team Providers + +------+ + | Care Bicycle Assembler Name | Role | Phone | + [...] as of this encounter Progress Notes Interface, Security Guard Dispatcher In - 03/08/2006 5:03 AM PSTINIC DATE: [...] Head and Neck Surgery AL/klaus SSA Perez, Security Guard Dispatcher In - 03/08/2006 5:03 AM PSTINIC DATE: [...]
--- OUTSIDE RECORDS SUMMARY | ~2019-02-20 | XMS | Encounter Summary ---
Demographics + + + | Address | [address] | | | [place] [address] | + + + | Home Phone | | + + + | Preferred Language | Unknown | + + + | Marital Status | | + + + | Religion Affiliation | LUT | + + + [...] Team Providers + +------+ + | Care Oncology Consultant Name | Role | Phone | [...] as of this encounter Progress Notes Interface, Farmworker Brooder Farm In - 03/18/2006 5:06 AM PSTCLINIC DATE: 03/23/1998 OTOLARYNGOLOGY CLINIC SUBJECTIVE: I have reviewed Mr. Rose's pathology slides including going over the cut-in sections to determine the orientation for the margin on the anterior-inferior surface, which is being called positive. Indeed, although the main tumor mass is well excised, there are peripheral islands of tumor beyond this that are certainly very close to the margin. PLAN: I think, given this behavior, we need to irradiate this gentleman postoperatively and I called to discuss this with him. We'll probably plan to do this in April, once things have healed further. Dylan Arthur M.D. Ward Nurse, Otolaryngology Head and Neck Surgery KRIS/josette d ocumented in this encounter Plan of Treatment Not on filedocumented as of this encounter Visit Diagnoses Not on filedocumented in this encounter"
--- OUTSIDE RECORDS SUMMARY | ~2019-02-20 | XMS | Encounter Summary ---
Demographics + + + | Address | [address] | | | [place] [address] | + + + | Home Phone | | + + + | Preferred Language | Unknown | + + + | Marital Status | | + + + | Quaker Affiliation | LUT | + + + [...] Team Providers + +------+ + | Care Preschool Teacher'S Assistant Name | Role | Phone | [...] [address] | | | | | | [address] | | | | | | [address] | [address] | | | | | | [place], [place] | Mailcode: | | | | | | [address] | [address] | | | | | | | Physician's | | | | | | | [address]ilion | | | | | | | [place], [place] | | | | | | | [address] | | | | | | | Phone: | | | | | | | [phone] | | | | | | | Fax: | | | | | | | [phone] | +--------+--------+ + + + + Encounter [...] | | | [address] | [place], [place] | Esophageal stenosis; | | | | Mailcode: [address] | [address] | Larynx edema | | | | Physician's [place] | [phone] | | | | | [place], [place] | | | | | | [address] | | | | | | [phone] | | | +--------+---------+ + + + [...] PM PDT PATIENT NAME: German Rose MR#: [id number] : 1945 REFERRING PROVIDER: RICKEY GAGNON Otolaryngology [address] [place] [address] PRIMARY CARE PROVIDER: Maycol Knutson MD CLINIC: [facility] REASON FOR FOLLOW-UP:Chief Complaint Patient presents with Follow-up visit HPI: German Rose is a 64 y.o. 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 Oropharynx: Normal lips and oral [...] was performed in conjunction with the [facility] speech pathologist. The patient drank a variety [...] He understands and agrees. Alexei De M.D. Lab Nurse Laryngology and Head & Neck Surgery BrittanyCece [...] | + +--------+ + + + | [place] | Routin | 12/01/2009 | Glottic stenosis [...]
--- OUTSIDE RECORDS SUMMARY | ~2019-02-20 | XMS | Encounter Summary ---
Demographics + + + | Address | [address] | | | [place] [address] | + + + | Home Phone [...] Team Providers + +------+ + | Care Fishing Rod Marker Name | Role | Phone | [...] as of this encounter Progress Notes Interface, Shipping Processor In - 09/09/2005 1:04 AM [place] [facility] [place] [address] [place], [place] [id number] or November 06, 2002 Maycol Knutson M.D. [address] [place] [address] [address] [place] [address] RE: KEIRY ROSE MR #: [id number] Dear Dr. Knutson: I saw Keiry Rose [...] any questions. Yours sincerely, Dylan Arthur M.D. [facility] / [id number] / [id number] / [id number] / cc: Moisés Quezada M.D. [address] [facility] [address] [place], [place] [id number] signed by Interface, Shipping Processor In at 09/09/2005 1:0 4 AM PDTdocumented in this encounter Plan of Treatment Not on filedocumented as of this encounter Visit Diagnoses Not on filedocumented in this encounter"
--- OUTSIDE RECORDS SUMMARY | ~2019-02-20 | XMS | Encounter Summary ---
Demographics + + + | Address | [address] | | | [place] [address] | + + + | Home Phone | | + + + | Preferred Language | Unknown | + + + | Marital Status | | + + + | Mormonism Affiliation | 1028 | + + + [...] [place] | | | | | [address] | | + + + + + Care Team Providers + +------+ + | Care Instructional Consultant Name | Role | Phone | + +------+ + | Nelson Laird MD | PCP | | + +------+ + Encounter Details +--------+ + + + + | Date | Type | Department | Care Team | Description | +--------+ + + + + | 01/30/ | Orders Only | [facility] | Bridget Milian, MAYA | | | 2017 | | VASCULAR SURGERY | [address] | | | | | [address]TR[address] | [place], [place] | | | | | [address] [place] | [address] | | | | | [place], [place] | | | | | | [address] | | | | | | [phone] | | | +--------+ + + + [...] | | | | | | [place] [address] | | | | | | [phone] | | | | | | | | +--------+---------+ + + + | 05/19/ | Office | Cardiology | Cristian Mccoy, | | | 2019 | Visit | | MD [address] | | | | | | [place], [place] | | | | | | [address] | | | | | | | | +--------+---------+ + + + documented as of this encounter Procedures + +--------+ + + + | Procedure Name | Priori | Date/Time | Associated Diagnosis | Comments | | | ty | | | | + +--------+ + + + | VAS CAROTID DUPLEX | Routin | 01/30/2018 | | Results for this | | BILATERAL | e | 10:55 AM | | procedure are in the | | | | PST | | results section. | + +--------+ + + + documented in this encounter Results VAS Carotid Duplex Bilateral (01/30/2018 10:55 AM PST) + + | Specimen | + + | | + + + + + | Impressions | Performed At | + + + | 1. No hemodynamically significant stenosis of the internal carotid | | | arteries. 2. There is greater than 50% narrowing of the left mid | | | common carotid artery. There is ulcerated plaque at this region with | | | possible intimal flap. 3. Antegrade flow of the bilateral vertebral | | | arteries. | | | 11:28 AM | | + + + + + + | Narrative | Performed At | + + + | HISTORY: Carotid stenosis. TECHNIQUE: Imaging was performed | | | with a linear array transducer. true duplex exam with gracia scale, | | | color flow and Doppler spectral analysis. COMPARISON: July 04, | | | 2017 FINDINGS: Right side: Peak systolic and end-diastolic | | | velocities of the common carotid, internal carotid and external | | | carotid arteries are normal. Left side: Peak systolic and | | | end-diastolic velocities of the internal carotid and external carotid | | | arteries are normal. Left common carotid and elevated velocity | | | from 64 cm/sec to 162 cm/s There are normal peak systolic | | | velocities within the bilateral vertebral arteries with antegrade | | | flow. Grades: 1 Stenosis =01-50% PSV <125 cm/sec | | | EDV (cm/s)<40 cm/sec (mild plaque) 2 Stenosis =01-50% | | | PSV <125 cm/sec EDV (cm/s)<40 cm/sec (moderate plaque) 3 | | | Stenosis =50-69% PSV >125 cm/sec EDV (cm/s)>40 cm/sec | | | 4 Stenosis =70-95% PSV >230 cm/sec EDV (cm/s)>100 | | | cm/sec 5 Stenosis =90-95% PSV <125 cm/sec EDV | | | (cm/s)<40 cm/sec 6 Stenosis Occluded Validated | | | velocity measurements with angiographic measurements, velocity | | | criteria are extrapolated from diameter data as defined by the Society | | | of Radiologists in Ultrasound Consensus Conference Radiology 2003; | | | 229; 340-346. | | + + + + + | Procedure Note | + + | Diogo Harris Conversion - 11/06/2018 3:16 PM PDT HISTORY:Carotid stenosis. | | TECHNIQUE:Imaging was performed with a linear array transducer. true duplex exam with | | gracia scale, color flow and Doppler spectral analysis. COMPARISON:July 04, 2017 | | FINDINGS:Right side:Peak systolic and end-diastolic velocities of the common carotid, | | internal carotid and external carotid arteries are normal. Left side:Peak systolic and | | end-diastolic velocities of the internal carotid and external carotid arteries are | | normal. Left common carotid and elevated velocity from 64 cm/sec to 162 cm/s There are | | normal peak systolic velocities within the bilateral vertebral arteries with antegrade | | flow. Grades:1 Stenosis =01-50% PSV <125 cm/sec EDV (cm/s)<40 cm/sec (mild | | plaque)2 Stenosis =01-50% PSV <125 cm/sec EDV (cm/s)<40 cm/sec (moderate | | plaque)3 Stenosis =50-69% PSV >125 cm/sec EDV (cm/s)>40 cm/sec4 | | Stenosis =70-95% PSV >230 cm/sec EDV (cm/s)>100 cm/sec5 Stenosis =90-95% | | PSV <125 cm/sec EDV (cm/s)<40 cm/sec6 Stenosis Occluded Validated velocity | | measurements with angiographic measurements, velocity criteria are extrapolated from | | diameter data as defined by the Society of Radiologists in Ultrasound Consensus | | Conference Radiology 2003; 229; 340-346. IMPRESSION: 1. No hemodynamically significant | | stenosis of the internal carotid arteries.2. There is greater than 50% narrowing of the | | left mid common carotid artery. There is ulcerated plaque at this region with possible | | intimal flap.3. Antegrade flow of the bilateral vertebral arteries. Electronically | | signed by Harman Calle MD on 01/30/2018 11:28 AM | |Grades: | |1 Stenosis =01-50% PSV <125 cm/sec EDV (cm/s)<40 cm/sec (mild plaque) | |2 Stenosis =01-50% PSV <125 cm/sec EDV (cm/s)<40 cm/sec (moderate plaque) | |3 Stenosis =50-69% PSV >125 cm/sec EDV (cm/s)>40 cm/sec | |4 Stenosis =70-95% PSV >230 cm/sec EDV (cm/s)>100 cm/sec | |5 Stenosis =90-95% PSV <125 cm/sec EDV (cm/s)<40 cm/sec | |6 Stenosis Occluded | | | |Validated velocity measurements with angiographic measurements, velocity criteria are extra polated from diameter data as defined by the Society of Radiologists in Ultrasound Consensus Conference Radiology 2003; 229; 340-346. | | | |IMPRESSION: | |1. No hemodynamically significant stenosis of the internal carotid arteries. | |2. There is greater than 50% narrowing of the left mid common carotid artery. There is ulc erated plaque at this region with possible intimal flap. | |3. Antegrade flow of the bilateral vertebral arteries. | | | | | + + documented in this encounter Visit Diagnoses Not on filedocumented in this encounter"
--- OUTSIDE RECORDS SUMMARY | ~2019-02-20 | XMS | Encounter Summary ---
Demographics + + + | Address | [address] | | | [place] [address] | + + + | Home Phone | | + + + | Preferred Language | Unknown | + + + | Marital Status | | + + + | Yazdanism Affiliation | 1028 | + + + [...] [place] | | | | | [address] | | + + + + + Care Team Providers + +------+ + | Care Steak Tenderizer Machine Name | Role | Phone | + +------+ + | aMycol Knutson MD | PCP | | + +------+ + Encounter Details +--------+ + + + + | Date | Type | Department | Care Team | Description | +--------+ + + + + | 04/03/ | Hospital | [facility] | Conversion | Pain | | 2018 | Encounter | CONVERSION [address] | Transaction, | | | | | [address] | Provider Unknown | | | | | [place], [place] | [phone] | | | | | [address] | | | | | | [phone] | | | +--------+ + + + [...] | 03/05/ | Office | Pulmonology | [facility], | | | 2018 | Visit | | Mary Pinto, | | | | | | MD [address] | | | | | | [place], | | | | | | [place] [address] | | | | | | [phone] | | | | | | | | +--------+---------+ + + + | 05/19/ | Office | Cardiology | Alsam[place], [place], | | | 2020 | Visit | | [address] | | | | | | [place] | | | | | | [address] | | | | | | | [...]
--- OUTSIDE RECORDS SUMMARY | ~2019-02-20 | XMS | Encounter Summary ---
Demographics + + + | Address | [address] | | | [place] [address] | + + + | Home Phone [...] Team Providers + +------+ + | Care Lumber Tailer Name | Role | Phone | + [...] | Transcriptions | + + | Interface, Band Bias Machine Operator In - 02/21/2006 3:03 AM PST | | [place] [address] | | [place], [place] [address] | | [facility] | | [id number] Date: [...] M.D. | | Dylan Arthur M.D.JRA:x17D: 01/11/1999T: 01/11/[id number]: | |ESTIMATED BLOOD LOSS: | |Negligible. | [...] | | | | | | | |[id number] | | | |CC: | + + documented in this encounter Visit Diagnoses Not on filedocumented in this encounter"
--- OUTSIDE RECORDS SUMMARY | ~2019-02-20 | XMS | Encounter Summary ---
Demographics + + + | Address | [address] | | | [place] [address] | + + + | Home Phone [...] Team Providers + +------+ + | Care Youth Ministry Director Name | Role | Phone [...] of this encounter Progress Notes Interface, Radio Rigger In - 03/18/2006 5:06 AM PSTCLINIC DATE: 04/01/1998 OTOLARYNGOLOGY CLINIC SUBJECTIVE: Mr. Rose is seen back in follow-up from his hemilaryngectomy. He and I have talked at some length and I have reviewed his slides here at [facility]. It is clear that there is extension [...] make an appointment for radiation therapy in [place]. I will call the radiation therapist once he calls with the name to go over the situation. Dylan Arthur M.D. KRIS/clif CC: AGUSTINA FERNANDEZ MD [address] [place] [address] [place] [address] MAYCOL CALLAHAN MD [address] [place] [address] [place] [id number] signed by Interface, Radio Rigger In at 03/18/2006 5:0 6 AM PSTdocumented in this encounter Plan of Treatment Not on filedocumented as of this encounter Visit Diagnoses Not on filedocumented in this encounter"
--- OUTSIDE RECORDS SUMMARY | ~2019-02-20 | XMS | Encounter Summary ---
Demographics + + + | Address | [address] | | | [place] [address] | + + + | Home Phone [...] Team Providers + +------+ + | Care Automotive Specialty Technician Name | Role | Phone | [...] | | | | | P[facility] [address] [facility] | | | | | | Ivan Harris | | | | | | Mailcode: PV01 | | | | | | Physician's [place] | | | | | | [place], [place] | | | | | | [address] | | | | | | [phone] | | | +--------+ + + + [...] 1: [place], | | | | | [place] | ASHWIN MeadowsEXAM: PA and | [...] | | + +---------+ + + | [facility] DEPARTMENT OF | | | | | RADIOLOGY | | | | + +---------+ + + documented in this encounter Visit Diagnoses Not on filedocumented in this encounter"
--- OUTSIDE RECORDS SUMMARY | ~2019-02-20 | XMS | Encounter Summary ---
Demographics + + + | Address | [address] | | | [place] [address] | + + + | Home Phone | | + + + | Preferred Language | Unknown | + + + | Marital Status | | + + + | Orthodoxy Affiliation | 1028 | + + + | Race | Unknown | + + + | Ethnic Group | Unknown | + + + Author + + + | Author | [facility] | | | and [place] | + + + | Organization | [facility] | | | [...] [place] | | | | | [address] | | + + + + + Care Team Providers + +------+ + | Care Ndt Inspector Name | Role | Phone | + +------+ + | Maycol Knutson MD | PCP | | + +------+ + Encounter Details +--------+---------+ + + + | Date | Type | Department | Care Team | Description | +--------+---------+ + + + | 12/29/ | Office | [facility] | Sharan Bruno | Central sleep apnea | | 2012 | Visit | SLEEP DISORDER [address] | MD [address] | due to Victoriano-Tomas | | | | [address] [place] | [address] [place] | respiration | | | | [place] [address] | [place] [address] | (Primary Dx); NOLA | | | | [phone] | [phone] | (obstructive sleep | | | | [...] of BiPAP therapy (ASV-BiPAP in particular) for MURAL PAINTER. P: PSG guided PAP titration - the titration will start with simple CPAP (which is sometimes effective even in MURAL PAINTER) but if centrals and Victoriano's Tomas persist, [...] | | | | | | [place] [address] | | | | | | [phone] | | | | | | | | +--------+---------+ + + + | 05/19/ | Office | Cardiology | Cristian Mccoy, | | | 2019 | Visit | | MD [address] | | | | | | [place] | | | | | | [address] | | | | | | | [...]
--- OUTSIDE RECORDS SUMMARY | ~2019-02-20 | XMS | Encounter Summary ---
Demographics + + + | Address | [address] | | | [place] [address] | + + + | Home Phone [...] Team Providers + +------+ + | Care Language Assistant Name | Role | Phone | + +------+ + | Maycol Knutson MD | PCP | | + +------+ + Encounter Details +--------+ + + + + | Date | Type | Department | Care Team | Description | +--------+ + + + + | 03/07/ | Transcribed | | Dictation, Other | [...] as of this encounter Progress Notes Interface, Staying Machine Operator In - 03/22/2006 5:11 AM [facility] [place] [facility] and [place] [address] [place], [place] [address] or Department of Otolaryngology - PV01 March 07, 1998 AGUSTINA FERNANDEZ MD [address] [place] [address] RE: German ROSE MR# [id number] Dear Bonifacio: Just a brief note to give you some follow-up on German Rose. 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 Therefore, we took him to the operating room for vertical hemilaryngectomy premised upon the fact that there seemed to be substantial disease present and in our experience, these lesions do not do well with radiation alone. Our findings at the time of surgery were consistent with this. There was approximately a 1 cm mass deep within the thyroarytenoid muscle on that right side. However, it was still surrounded by a cuff of thyroarytenoid muscle on its deep margin between it in the piriform sinus and therefore we were able to extirpate it without difficulty, preserving the majority of the posterior arytenoid. There were some superficial changes in the contralateral cord with microinvasion, which were dealt with by excision. I would anticipate that he will have a good result in terms of voice. Unless we see evidence of perivascular invasion, I will not be recommending radiation therapy. He left the hospital on the 4th postoperative day decannulated and with his feeding tube out and I think he should recover fairly quickly. As always, I appreciate your support in sending patients such as this to me. I will continue to follow him along until he is stabilized and then return him to you for care. Thank you again. Yours sincerely, Dylan Arthur M.D. Expansion Envelope Maker Hand, Otolaryngology Head and Neck Surgery KRIS/nya C: 03/16/1998 ds documented in this encounter Plan of Treatment Not on filedocumented as of this encounter Visit Diagnoses Not on filedocumented in this encounter"
--- OUTSIDE RECORDS SUMMARY | ~2019-02-20 | XMS | Encounter Summary ---
Demographics + + + | Address | [address] | | | [place] [address] | + + + | Home Phone | | + + + | Preferred Language | Unknown | + + + | Marital Status | | + + + | Baptism Affiliation | 1028 | + + + | Race | Unknown | + + + | Ethnic Group | Unknown | + + + Author + + + | Author | [facility] | | | and [place] | + + + | Organization | [facility] | | [...] [place] | | | | | [address] | | + + + + + Care Team Providers + +------+ + | Care Profiling Machine Operator Name | Role | Phone | + +------+ + PCP | Unavailable | + +------+ + Encounter Details +--------+ + + + + | Date | Type | Department | Care Team | Description | +--------+ + + + + | 11/16/ | Hospital | [facility] | | | | 1998 | Encounter | MED CTR GENERIC OP | | | | | | CONV DEPT [address] | | | | | | [place], | | | | | | [place] [address] | | | | | | [phone] | | | +--------+ + + + [...] | | | | | | [place] [address] | | | | | | [phone] | | | | | | | | +--------+---------+ + + + | 05/19/ | Office | Cardiology | Cristian Mccoy, | | | 2020 | Visit | | MD [address] | | | | | | [place] | | | | | | [address] | | | | | | | | +--------+---------+ + + + documented as of this encounter Visit Diagnoses Not on filedocumented in this encounter"
--- OUTSIDE RECORDS SUMMARY | ~2019-02-20 | XMS | Encounter Summary ---
Demographics + + + | Address | [address] | | | [place] [address] | + + + | Home Phone | | + + + | Preferred Language | Unknown | + + + | Marital Status | | + + + | Mu-Ism Affiliation | 1028 | + + + | Race | Unknown | + + + | Ethnic Group | Unknown | + + + Author + + + | Author | [facility] | | | and [place] | + + + | Organization | [facility] | | | [...] [place] | | | | | [address] | | + + + + + Care Team Providers + +------+ + | Care Sanitizer Name | Role | Phone | + [...] | | unspecified | [address] | [place], [place] | | | | | (HCC) | [place], [place] | [address] | | | | | Procedures | [address] | Phone: | | | | | PULM FULL | Phone: | [phone] | | | | | PFT | [phone] | Fax: | | | | | | Fax: | [phone] | | | | | | [phone] | | +--------+--------+ + + + + Encounter Details +--------+ + + + + | Date | Type | Department | Care Team | Description | +--------+ + + + + | 11/20/ | Hospital | [facility] | Elia, | COPD, moderate (HCC) | | 2019 | Encounter | PULMONARY FUNCTION | Mary Pinto, | | | | | LAB [address] | MD [address] | | | | | [facility] [place] | [place], | | | | | [address] | [place] [address] | | | | | [phone] | [phone] | | | | | | | [...] | | | | | | [place] [address] | | | | | | [phone] | | | | | | | | +--------+---------+ + + + | 05/19/ | Office | Cardiology | Cristian Mccoy, | | | 2020 | Visit | | MD [address] | | | | | | [place] | | | | | | [address] | | | | | | | [...] TESTING | e | 2:04 PM | ([facility]) | procedure are in the | | [...] Rose : 1945 MRN: | | | [id number] REASON FOR TESTING: COPD FINDINGS | | [...] Rodrigez MD Pulmonary and Critical Care Medicine [facility] | | | [facility] [address], [address] | | | [place] [address] | | + + + documented in [...]
--- OUTSIDE RECORDS SUMMARY | ~2019-02-20 | XMS | Encounter Summary ---
Demographics + + + | Address | [address] | | | [place] [address] | + + + | Home Phone [...] [place] | | | | | [address] | | + + + + + Care Team Providers + +------+ + | Care Marble Rubber Name | Role | Phone | + +------+ + | Maycol Knutson MD | PCP | | + +------+ + Encounter Details +--------+ + + + + | Date | Type | Department | Care Team | Description | +--------+ + + + + | 06/09/ | Hospital | [facility] | Conversion | 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 | [facility] [address] | Transaction, | consolidation (HCC); | | | | [address] | Provider Unknown | Incidental | | | | [place], [place] | [phone] | pulmonary nodule, > | | | | [address] | | 3mm and < 8mm | | | | [phone] | Mary Rodrigez | | | | | | MD Millie [address] | | | | | | [address] | | | | | | [place] [address] | | | | | | [phone] | | | | | | | [...] | | | | | | [place] [address] | | | | | | [phone] | | | | | | | | +--------+---------+ + + + | 05/19/ | Office | Cardiology | Cristian Mccoy, | | | 2019 | Visit | | MD [address] | | | | | | [place] | | | | | | [address] | | | | | | | [...]
--- OUTSIDE RECORDS SUMMARY | ~2019-02-20 | XMS | Encounter Summary ---
Demographics + + + | Address | [address] | | | [place] [address] | + + + | Home Phone [...] Team Providers + +------+ + | Care Day Worker Name | Role | Phone | [...] as of this encounter Discharge Summaries Interface, Stamp Press Operator In - 03/22/2006 5:[address] [address] [facility] MEDICAL SUMMARY OF HOSPITALIZATION Med Rec No: [id number] Admission Date: 03/03/1998 Name: German Rose Discharge Date: 03/08/1998 STAFF PHYSICIAN: Dylan Arthur M.D. Miter Grinder Operator, Otolaryngology Head and Neck Surgery PRINCIPAL FINAL [...] and Nutrition consults. REASON FOR ADMISSION: Mr. Rose is a 52-year-old gentleman with complaint of [...] CONDITION ON DISCHARGE: Stable to home in [place], [place] with . DISCHARGE MEDICATION(S): 1. Augmentin [...] M.D. Dylan Arthur M.D. Resident, Pediatric Surgery Miter Grinder Operator, Otolaryngology Head and Neck Surgery AKILAH/gurinder A cc: MAYCOL CALLAHAN MD [address] [place] [email or web address] signed by Interface, Stamp Press Operator In at 03/22/2006 5:11 AM PSTdocumented in this encounter Plan of Treatment Not on filedocumented as of this encounter Visit Diagnoses Not on filedocumented in this encounter"
--- OUTSIDE RECORDS SUMMARY | ~2019-02-20 | XMS | Encounter Summary ---
Demographics + + + | Address | [address] | | | [place] [address] | + + + | Home Phone | | + + + | Preferred Language | Unknown | + + + | Marital Status | | + + + | Episcopal Affiliation | 1028 | + + + | Race | Unknown | + + + | Ethnic Group | Unknown | + + + Author + + + | Author | [facility] | | | and [place] | + + + | Organization | [facility] | | | and [...] [place] | | | | | [address] | | + + + + + Care Team Providers + +------+ + | Care Rubberizing Mechanic Name | Role | Phone | + +------+ + | Maycol Knutson MD | PCP | | + +------+ + Reason for Visit +--------+ + | Reason | Comments | +--------+ + | Apnea | | +--------+ + Encounter Details +--------+---------+ + + + | Date | Type | Department | Care Team | Description | +--------+---------+ + + + | 05/28/ | Office | [facility] | Aleksandar Tejeda PA | NOLA (obstructive | | 2013 | Visit | SLEEP DISORDER [address] | [address] | sleep apnea) | | | | [address] [place] | [facility] | (Primary Dx); | | | | [place] [address] | [address] | Victoriano-Wallace | | | | [phone] | | breathing | +--------+---------+ + + [...] + + + | Blood Pressure | 122/66 | 05/28/2013 11:02 AM | | | | | PDT | | + + + + + | Pulse | 68 | 05/28/2013 11:02 AM | | | | | PDT | | + + + + + | Temperature | - | - | | + + + + + | Respiratory Rate | 16 | 05/28/2013 11:02 AM | | | | | PDT | | + + + + + | Oxygen Saturation | 97% | 05/28/2013 11:02 AM | | | | | PDT | | + + + + + | Inhaled Oxygen | - | - | | | Concentration | | | | + + + + + | Weight | 87.5 kg (192 lb 14.4 | 05/28/2013 11:02 AM | | | | oz) | PDT | | + + + + + | Height | - | - | | + + + + + | Body Mass Index | 31.13 | 12/15/2012 1:28 PM | | | | | PDT | | + + + + + documented in this encounter Progress Notes Aleksandar Tejeda PA - 05/28/2013 11:01 AM PDT Subjective: Patient ID: German Rose is a 68 y.o. male. HPI last office visit was: 04/22/2013 date of polysomnography: 12/22/2012 AHI: 77.4 RDI: 77.4 O2%: 86% with 15.8 minutes below 88% Machine type: Respironics ASV BiPAP with nasal mask (Cary) obtained from: [facility] pressure: EPAP = 4cm;PSmin=0cm;PSmax=25cm;backup rate=auto Nights using BiPAP: 30 average usage (all nights): 3:37 average usage (nights used): 4:20 AHI: 1.5 German comes in for BiPAP compliance. He continues to wear his BiPAP on a regular basis, but is still struggling with wearing it for the duration of the night. His congestion problems continue, but have improved some. He says that he also catches himself falling asleep befo re he remembers to put on his mask. He and his talk when they go to bed and he falls a sleep. He has lowered his humidity because of condensation problems. He replaced his hose after his last appointment and condensation is no longer a problem, but he hasn't increased his humidity. He says he is waking in the morning with congestion and blowing out dried blo od. I have discussed the download in detail. This shows that his sleep apnea is controlled, wi th an AHI of 2.1. It also shows that his leaks are well controlled. His percentage of nigh ts wearing his BiPAP >4 hours during the last 36 nights is 44.4%. Review of Systems Objective: Physical Exam Assessment: Problem #1: OBSTRUCTIVE SLEEP APNEA (ICD 9-327.23) This is controlled with BiPAP. He is wearing his BiPAP regularly, but continues to struggl e with wearing it for the duration of the night. He continues to have problems with congest ion. 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 Plan: He is to continue with his BiPAP indefinitely. I recommended that he increase his humidity from 2.0 to 3.0 to help with his congestion. He is to work toward wearing his BiPAP 100% o f the time he is asleep. I will follow up again in 1 month, sooner prn. Fifteen minutes were spent doha-ht-okhl, wi th the majority of time spent [...] | | | | | | [place] [address] | | | | | | [phone] | | | | | | | | +--------+---------+ + + + | 05/19/ | Office | Cardiology | Cristian Mccoy, | | | 2019 | Visit | | MD [address] | | | | | | [place] | | | | | | [phone] | | | | | | | | +--------+---------+ + + + documented as of this encounter Visit Diagnoses + + | Diagnosis | + + | NOLA (obstructive sleep apnea) - Primary Obstructive sleep apnea (adult) (pediatric) | + + | Victoriano-Wallace breathing Victoriano-Wallace respiration | + + documented in this encounter"
--- OUTSIDE RECORDS SUMMARY | ~2019-02-20 | XMS | Encounter Summary ---
Demographics + + + | Address | [address] | | | [place] [address] | + + + | Home Phone | | + + + | Preferred Language | Unknown | + + + | Marital Status | | + + + | Muslim Affiliation | LUT | + + + [...] Team Providers + +------+ + | Care Dictionary Editor Name | Role | Phone | + [...] | Transcriptions | + + | Interface, Truck Mechanic In - 02/13/2006 1:10 AM PST | | [place] [address] | | [place], [place] [address] | | [facility] RECORDMed Rec No.: | | [id number] [...] case.Cami | | Priyanka Webster M.D.CY:xt4D: 04/26/1999T: 04/26/[id number]: | |The Metzenbaum scissors were used to [...] | | | | | | | |[id number] | | | |CC: | + + documented in this encounter Visit Diagnoses Not on filedocumented in this encounter"
--- OUTSIDE RECORDS SUMMARY | ~2019-02-20 | XMS | Encounter Summary ---
Demographics + + + | Address | [address] | | | [place] [address] | + + + | Home Phone | | + + + | Preferred Language | Unknown | + + + | Marital Status | | + + + | Temple Affiliation | 1028 | + + + | Race | Unknown | + + + | Ethnic Group | Unknown | + + + Author + + + | Author | [facility] | | | and [place] | + + + | Organization | [facility] | | | [...] [place] | | | | | [address] | | + + + + + Care Team Providers + +------+ + | Care Machine Heel Seat Fitter Name | Role | Phone | + +------+ + | Maycol Knutson MD | PCP | | + +------+ + Reason for Visit +--------+ + | Reason | Comments | +--------+ + | Apnea | | +--------+ + Encounter Details +--------+---------+ + + + | Date | Type | Department | Care Team | Description | +--------+---------+ + + + | 10/12/ | Office | [facility] | Sharan Bruno | NOLA (obstructive | | 2015 | Visit | SLEEP DISORDER [address] | MD [address] | sleep apnea) | | | | [address] [place] | [address] [place] | (Primary Dx); | | | | [place] [address] | [place] [address] | Central sleep apnea | | | | [phone] | [phone] | due to Victoriano-Tomas | | | [...] + + + | Blood Pressure | 142/78 | 10/12/2014 8:46 AM | | | | | PDT | | + + + + + | Pulse | 66 | 10/12/2014 8:46 AM | | | | | PDT | | + + + + + | Temperature | - | - | | + + + + + | Respiratory Rate | 16 | 10/12/2014 8:46 AM | | | | | PDT | | + + + + + | Oxygen Saturation | 98% | 10/12/2014 8:46 AM | | | | | PDT | | + + + + + | Inhaled Oxygen | - | - | | | Concentration | | | | + + + + + | Weight | 81.9 kg (180 lb 9.6 | 10/12/2014 8:46 AM | | | | oz) | PDT | | + + + + + | Height | - | - | | + + + + + | Body Mass Index | 27.46 | 11/18/2013 10:00 AM | | | | | PDT | | + + + + + documented in this encounter Progress Notes Sharan Bruno Jr., MD - 10/12/2014 8:51 AM PDTThe patient comes in for f/u on combined NOLA and CSA (Victoriano-Tomas) on ASV-BPAP (normal EF on 2-D Echo (65%) on 08/12/2014). He is on a [employer] (S9ASV) set at EPAP 4cm, PSmin 0cm, PSmax 20cm, backup auto. He has worn thi s for 29 out of 33 days but is averaging only 2 hours 58 minutes of use per night. The calcu lated AHI was 0. He was seen by ENT Dr. Corrales in the [facility] for his nasal/sinus issues. He will see the m again next month to have some sort of nasal/septal surgery which they hope will help open up the nose. He gets up to go to the bathroom at night and his nose is plugged so he doesn't use the BPAP after this. He is using much more water each evening. BP 142/78 mmHg | Pulse 66 | Resp 16 | Wt 81.92 kg (180 lb 9.6 oz) | SpO2 98% A: Complex Sleep Apnea (NOLA+CSA-MEDICAL REVIEW COORDINATOR): The AHI is 0 when he wears his ASV-BPAP. I've encoura ged him to put the ASV-BPAP back on and turn it on when he gets up at night. I think that it might actually help with the nasal stuffiness. He will try this. I am also hopeful that the re might be a surgical solution in October. P: He will try to put the ASV-BPAP back on every night. F/u in 2 months after surgery is done. Today, 15 minutes was spent face to face with the patient; the majority of time was spent kang giordano regarding Complex Apnea. documented in th is [...] | | | | | | [place] [address] | | | | | | [phone] | | | | | | | | +--------+---------+ + + + | 05/19/ | Office | Cardiology | Cristian Mccoy, | | | 2019 | Visit | | MD [address] | | | | | | [place] | | | | | | [address] | | | | | | | [...]
--- OUTSIDE RECORDS SUMMARY | ~2019-02-20 | XMS | Encounter Summary ---
Demographics + + + | Address | [address] | | | [place] [address] | + + + | Home Phone | | + + + | Preferred Language | Unknown | + + + | Marital Status | | + + + | Denominational Affiliation | 1028 | + + + | Race | Unknown | + + + | Ethnic Group | Unknown | + + + Author + + + | Author | [facility] | | | and [place] | + + + | Organization | [facility] | | [...] [place] | | | | | [address] | | + + + + + Care Team Providers + +------+ + | Care Advertisement Distributor Name | Role | Phone | + +------+ + | Maycol Knutson MD | PCP | | + +------+ + Encounter Details +--------+ + + + + | Date | Type | Department | Care Team | Description | +--------+ + + + + | 01/21/ | Hospital | [facility] | Sharan Bruno | | | 2012 | Encounter | MED CTR SLEEP | MD [address] | | | | | [place] [address] | [place] [facility] | | | | | [place], [place] | [place] [address] | | | | | [address] | [phone] | | | | | [phone] | | | +--------+ + + + [...] + + +---------+ + + | | 2 to 1 tablet four | | 0 | 11/30/19 | | | hydrocodone-acetamin | times daily | | | 12 | 4 | | ophen (VICODIN ES) | | | | | | | 7.5-750 MG per | | | | | | | tablet | | | | | | + + + +---------+ + + | losartan (COZAAR) | Take 100 mg by mouth | | 0 | | | | 100 MG tablet | Daily. 03/19 daily | | | | 9 | + + + +---------+ + + | methotrexate 2.5 | Take 15 mg by mouth | | 0 | | | | mg tablet | Once a week. | | | | 9 | + + + +---------+ + + | potassium chloride | | | 0 | 11/28/19 | | | (MICRO-K) 10 mEq CR | | | | 13 | 3 | | capsule | | | | | | + + + +---------+ + + | predniSONE | Take 5 mg by mouth | | 0 | | | | (DELTASONE) 5 mg | Daily. | | | | 4 | | tablet | | | | | | + + + +---------+ + + | pregabalin | Take 50 mg by mouth | | 0 | | | | (LYRICA) 50 MG | 3 times daily. | | | | 4 | | capsule | | | | [...] | | (FLOMAX) 0.4 mg CAPS | Daily. | | | 12 | 3 | + + + +---------+ + + | testosterone | 200 mg injected | | 0 | 11/30/19 | | | cypionate | intramuscularly | | | 12 | 4 | | (DEPO-TESTOSTERONE) | every 3 weeks | | | | | | 200 mg/mL injection | | | | | | + [...] | | | | | | [place] [address] | | | | | | [phone] | | | | | | | | +--------+---------+ + + + | 05/19/ | Office | Cardiology | Cristian Mccoy, | | | 2019 | Visit | | MD [address]na [address] | | | | | | [place] | | | | | | [address] | | | | | | | | +--------+---------+ + + + documented as of this encounter Visit Diagnoses Not on filedocumented in this encounter"
--- OUTSIDE RECORDS SUMMARY | ~2019-02-20 | XMS | Encounter Summary ---
Demographics + + + | Address | [address] | | | [place] [address] | + + + | Home Phone [...] Team Providers + +------+ + | Care Banquet Lead Name | Role | Phone | + +------+ + | Maycol Knutson MD | PCP | | + +------+ + Encounter Details +--------+ + + + + | Date | Type | Department | Care Team | Description | +--------+ + + + + | 09/15/ | Clinic Licensed Practical Nurse | Otolaryngology | Alexei De | Laryngeal cancer | | 2009 | | Laryngology Services | MD [address] | ([facility]); Pharyngeal | | | | at [facility] [address] | [address] | dysphagia | | | | [address] | [place], [place] | | | | | Mailcode: PV01 | [address] | | | | | [facility] | [phone] | | | | | [place], [place] | | | | | | [address] | | | | | | [phone] | | | +--------+ + + + [...] the | | | | | | [facility] speechpathologist. | | | | | | [...] | | | | STATUS FINAL / [facility] | | | | | | HETAL [...]
--- OUTSIDE RECORDS SUMMARY | ~2019-02-20 | XMS | Encounter Summary ---
Demographics + + + | Address | [address] | | | [place] [address] | + + + | Home Phone [...] Team Providers + +------+ + | Care Leather Belt Loop Cutter Name | Role | Phone | [...] | | | | | [facility] [address] [facility] | | | | | | [address] | | | | | | Mailcode: PV01 | | | | | | [facility] | | | | | | [place], [place] | | | | | | [address] | | | | | | [phone] | | | +--------+ + + + [...] | | + +---------+ + + | [facility] DEPARTMENT OF | | | | [...]
--- OUTSIDE RECORDS SUMMARY | ~2019-02-20 | XMS | Encounter Summary ---
Demographics + + + | Address | [address] | | | [place] [address] | + + + | Home Phone [...] [place] | | | | | [address] | | + + + + + Care Team Providers + +------+ + | Care Ruby On Rails Engineer Name | Role | Phone | [...] | | | | (AAA) | [place] | | | | | | without | [address] | | | | | | rupture | Phone: | | | | | | ([facility]) | [phone] | | | | | | Procedures | Fax: | | | | | | VAS Aorta | [phone] | | | | | | Iliac Duplex | | | | | | | Complete | | | +--------+--------+ + + + + Encounter Details +--------+ + + + + | Date | Type | Department | Care Team | Description | +--------+ + + + + | 01/19/ | Hospital | [facility] | | Abdominal aortic | | 2019 | Encounter | VASCULAR SURGERY | | aneurysm (AAA) | | | | ULTRASOUND [address] | | without rupture | | | | [address] [place] | | ([facility]) | | | | [facility] [place] | | | | | | [address] | | | | | | [phone] | | | +--------+ + + + [...] | | | | | | [place] [address] | | | | | | [phone] | | | | | | | | +--------+---------+ + + + | 05/19/ | Office | Cardiology | Cristian Mccoy, | | | 2019 | Visit | | MD [address] | | | | | | [place] | | | | | | [id number] | | | | | | | [...]
--- OUTSIDE RECORDS SUMMARY | ~2019-02-20 | XMS | Encounter Summary ---
Demographics + + + | Address | [address] | | | [place] [address] | + + + | Home Phone [...] Providers + +------+ + | Care Sales Representative Wire Rope Name | Role | Phone | + [...] | Transcriptions | + + | Interface, Coal Shooter In - 03/08/2006 5:03 AM PST | | [place] [address] | | [place], [place] [address] | | [facility]Med Rec No.: | | [id number] Date: 08/03/1998Name: Jose Martin Rose SURGEON:Dylan Arthur, | | PriyankaDIRECTOR MARKET INTELLIGENCE(S): Carlos Butler M.D.PREOPERATIVE DIAGNOSIS(ES):Laryngeal | | stenosis.POSTOPERATIVE [...] | performed. The largest dilator was 32 Samoan and this waseasily passed. An | | [...] Chun. | | Teodoro Butler M.D.DMK:xt7D: 08/03/1998T: 08/04/1998#[id number]: | |Laryngeal stenosis. | | | |OPERATIONS [...] was performed. The largest dilator was 32 Samoan and this was | |easily passed. An [...] | | | | | | | |#[id number] | | | | | |[address] | |CC: | + + documented in this encounter Visit Diagnoses Not on filedocumented in this encounter"
--- OUTSIDE RECORDS SUMMARY | ~2019-02-20 | XMS | Encounter Summary ---
Demographics + + + | Address | [address] | | | [place] [address] | + + + | Home Phone [...] [place] | | | | | [address] | | + + + + + Care Team Providers + +------+ + | Care Bobbin Inspector Name | Role | Phone | + +------+ + | Nelson Laird MD | PCP | | + +------+ + Reason for Visit + + + | Reason | Comments | + + + | Follow-up | | + + + Encounter Details +--------+ + + + + | Date | Type | Department | Care Team | Description | +--------+ + + + + | 12/02/ | Telephone | [facility] | Bridget Milian DNP | Follow-up | | 2019 | | VASCULAR SURGERY | [address] | | | | | [address] [place] | [place], [place] | | | | | [place], [place] | [address] | | | | | [address] | | | | | | [phone] | | | +--------+ + + + [...] | | | | | | [place] [address] | | | | | | [phone] | | | | | | | | +--------+---------+ + + + | 05/19/ | Office | Cardiology | Cristian Mccoy, | | | 2020 | Visit | | MD [address] | | | | | | [place] | | | | | | [address] | | | | | | | | +--------+---------+ + + + documented as of this encounter Visit Diagnoses Not on filedocumented in this encounter"
--- OUTSIDE RECORDS SUMMARY | ~2019-02-20 | XMS | Encounter Summary ---
Demographics + + + | Address | [address] | | | [place] [address] | + + + | Home Phone [...] Providers + +------+ + | Care Senior Stock Plan Administrator Name | Role | Phone | + [...] as of this encounter Progress Notes Interface, Aviation Technical Systems Specialist In - 03/22/2006 5:11 AM [facility] [place] [facility] and [place] [address] [place], [place] [address] or Department of Otolaryngology - PV01 March 07, 1998 AGUSTINA FERNANDEZ MD [address] [place] [address] RE: German ROSE MR# [id number] Dear Bonifacio: [...] you again. Yours sincerely, Dylan Arthur M.D. Numerical Control Tool Programmer, Otolaryngology Head and Neck Surgery KRIS/nya C: 03/16/1998 ds documented in this encounter Plan of Treatment Not on filedocumented as of this encounter Visit Diagnoses Not on filedocumented in this encounter"
--- OUTSIDE RECORDS SUMMARY | ~2019-02-20 | XMS | Encounter Summary ---
Demographics + + + | Address | [address] | | | [place] [address] | + + + | Home Phone | | + + + | Preferred Language | Unknown | + + + | Marital Status | | + + + | Mormon Affiliation | 1028 | + + + | Race | Unknown | + + + | Ethnic Group | Unknown | + + + Author + + + | Author | [facility] | | | and [place] | + + + | Organization | [facility] | | | [...] [place] | | | | | [address] | | + + + + + Care Team Providers + +------+ + | Care Channeling Machine Operator Name | Role | Phone | + +------+ + | Maycol Knutson MD | PCP | | + +------+ + Encounter Details +--------+ + + + + | Date | Type | Department | Care Team | Description | +--------+ + + + + | 11/04/ | Hospital | [facility] | Adal Corrales, | Chronic maxillary | | 2015 | Encounter [facility] | DO | sinusitis; Chronic | | | | [address] | | frontal sinusitis | | | | [place], [place] | | | | | | [address] | | | | | | [phone] | | | +--------+ + + + [...] Notes by Dina Cisneros RN at 11/04/14 2206 Author: Dina Cisneros RN Service: (none) Author Type: Registered Nurse Filed: 11/04/14 1782 Date of Service: 11/04/14 5065 Status: Signed Well Servicing Rig Operator: Dina Cisneros RN (Registered Nurse) Noted 3 [...] | | | | | | [address] [place], | | | | | | [place] [address] | | | | | | [phone] | | | | | | | | +--------+---------+ + + + | 05/19/ | Office | Cardiology | Cristian Mccoy, | | | 2019 | Visit | | [address] | | | | | | [place] | | | | | | [address] | | | | | | | | +--------+---------+ + + + documented as of this encounter Visit Diagnoses + + | Diagnosis | + + | Chronic maxillary sinusitis | + + | Chronic frontal sinusitis | + + documented in this encounter
--- OUTSIDE RECORDS SUMMARY | ~2019-02-20 | XMS | Encounter Summary ---
Demographics + + + | Address | [address] | | | [place] [address] | + + + | Home Phone | | + + + | Preferred Language | Unknown | + + + | Marital Status | | + + + | Latter-Day Affiliation | LUT | + + + [...] Providers + +------+ + | Care Electric Distribution Checker Name | Role | Phone | + +------+ + | Maycol Knutosn MD | PCP | | + +------+ + Encounter Details +--------+ + + + + | Date | Type | Department | Care Team | Description | +--------+ + + + + | 02/02/ | Office | [facility] | Note, [...] as of this encounter Progress Notes Interface, Yarn Skeins Examiner In - 02/21/2006 3:03 AM PSTCLINIC DATE: 02/02/1999 OTOLARYNGOLOGY CLINIC SUBJECTIVE: Mr. Rose is seen back in followup from his dilation. He really feels no subjective change in his symptoms in terms of his glottic and subglottic stenosis. PHYSICAL EXAMINATION: A flexible fiberoptic laryngoscopy is done. The erythema of his larynx remains absent. There is no evidence of any significant change in his subglottic stenosis which remains at 50% to 60% of his airway. ASSESSMENT: Subglottic stenosis. PLAN: He and I now agree that he needs an altered reconstruction of this. We will arrange to do this in four to six weeks. Dylan Arthur M.D. Kaycee / [id number] / [id number] / [id number] / [id number] Tdocumented in this encounter Plan of Treatment Not on filedocumented as of this encounter Visit Diagnoses Not on filedocumented in this encounter"
--- OUTSIDE RECORDS SUMMARY | ~2019-02-20 | XMS | Encounter Summary ---
Demographics + + + | Address | [address] | | | [place] [address] | + + + | Home Phone [...] [place] | | | | | [address] | | + + + + + Care Team Providers + +------+ + | Care Youth Specialist Name | Role | Phone | + +------+ + | Nelson Laird MD | PCP | | + +------+ + Encounter Details +--------+ + + + + | Date | Type | Department | Care Team | Description | +--------+ + + + + | 07/04/ | Orders Only | [facility] | Nicolas Trujillo MD | | | 2018 | | VASCULAR SURGERY | [address] | | | | | ULTRASOUND [address] | [address] [place], [place] | | | | | [address] | [address] | | | | | [place], [place] | [phone] | | | | | [address] | | | | | | [phone] | | | +--------+ + + + [...] | | | | | | [place] [address] | | | | | | [phone] | | | | | | | | +--------+---------+ + + + | 05/19/ | Office | Cardiology | Cristian Mccoy, | | | 2019 | Visit | | MD [address] | | | | | | [address] [place], [place] | | | | | | [address] | | | | | | | [...] At | + + + | HISTORY:72 [id number] 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
--- OUTSIDE RECORDS SUMMARY | ~2019-02-20 | XMS | Encounter Summary ---
Demographics + + + | Address | [address] | | | [place] [address] | + + + | Home Phone | | + + + | Preferred Language | Unknown | + + + | Marital Status | | + + + | Mormonism Affiliation | 1028 | + + + | Race | Unknown | + + + | Ethnic Group | Unknown | + + + Author + + + | Author | [facility] | | | and [place] | + + + | Organization | [facility] | [...] [place] | | | | | [address] | | + + + + + Care Team Providers + +------+ + | Care Drug Regulatory Affairs Specialist Name | Role | Phone | + +------+ + | Maycol Knutson MD | PCP | | + +------+ + Reason for Visit +--------+ + | Reason | Comments | +--------+ + | Other | | +--------+ + Encounter Details +--------+ + + + + | Date | Type | Department | Care Team | Description | +--------+ + + + + | 09/16/ | Telephone | [facility] [place] | Carlos Garland MD | Other | | 2013 | | NEUROSURGERY [address] | | | | | [address] | [place] [address] | | | | | [place] | [phone] | | | | | [address] | | | | | | [phone] | | | +--------+ + + + [...] | | | | | | [place] [address] | | | | | | [phone] | | | | | | | | +--------+---------+ + + + | 05/19/ | Office | Cardiology | Cristian Mccoy, | | | 2019 | Visit | | MD [address] | | | | | | [place] | | | | | | [address] | | | | | | | | +--------+---------+ + + + documented as of this encounter Visit Diagnoses Not on filedocumented in this encounter"
--- OUTSIDE RECORDS SUMMARY | ~2019-02-20 | XMS | Encounter Summary ---
Demographics + + + | Address | [address] | | | [place] [address] | + + + | Home Phone [...] [place] | | | | | [address] | | + + + + + Care Team Providers + +------+ + | Care Game Breeding Farm Manager Name | Role | Phone | + +------+ + | Nelson Laird MD | PCP | | + +------+ + Encounter Details +--------+ + + + + | Date | Type | Department | Care Team | Description | +--------+ + + + + | 01/30/ | Orders Only | [facility] | Bridget Milian, MAYA | | | 2017 | | VASCULAR SURGERY | [address] | | | | | ULTRASOUND [address] | [address] [place], [place] | | | | | [address] | [address] | | | | | [place], [place] | | | | | | [address] | | | | | | [phone] | | | +--------+ + + + [...] | | | | | | [place] [address] | | | | | | [phone] | | | | | | | | +--------+---------+ + + + | 05/19/ | Office | Cardiology | Cristian Mccoy, | | | 2019 | Visit | | MD [address] | | | | | | [address] [place], [place] | | | | | | [address] | | | | | | | [...]
--- OUTSIDE RECORDS SUMMARY | ~2019-02-20 | XMS | Encounter Summary ---
Demographics + + + | Address | [address] | | | [place] [address] | + + + | Home Phone [...] Team Providers + +------+ + | Care Data Capture Specialist Name | Role | Phone | + +------+ + | Maycol Knutson MD | PCP | | + +------+ + Encounter Details +--------+ + + + + | Date | Type | Department | Care Team | Description | +--------+ + + + + | 03/03/ | Procedure - | | Documentation, | [...] + + | TEACHING PHYSICIAN | | 03/03/1998 | | | + +--------+ + + + documented in this encounter Visit Diagnoses Not on filedocumented in this encounter"
--- OUTSIDE RECORDS SUMMARY | ~2019-02-20 | XMS | Encounter Summary ---
Demographics + + + | Address | [address] | | | [place] [address] | + + + | Home Phone | | + + + | Preferred Language | Unknown | + + + | Marital Status | | + + + | Muslim Affiliation | 1028 | + + + | Race | Unknown | + + + | Ethnic Group | Unknown | + + + Author + + + | Author | [facility] | | | and [place] | + + + | Organization | [facility] | | | [...] [place] | | | | | [address] | | + + + + + Care Team Providers + +------+ + | Care Wire Inserter Name | Role | Phone | + [...] Closed | | Radiology | Diagnoses | Elia, | [facility] | | | | | Multifocal | Mary | [address] | | | | | lung | MD Millie | [address] | | | | | consolidatio | [address] | [address] | | | | | n (HCC) | [address] | [place], [place] | | | | | Procedures | [address] | [address] | | | | | CT Chest wo | [place], [place] | Phone: | | | | | Contrast | [address] | [phone] | | | | | | Phone: | Fax: | | | | | | [phone] | [phone] | | | | | | Fax: | | | | | | | [phone] | | +--------+--------+ + + + + Reason for Visit Diagnostic/Screening (Routine) +--------+--------+ + + + + | Status | Reason | Specialty | Diagnoses / | Referred By | Referred To | | | | | Procedures | Contact | Contact | +--------+--------+ + + + + | Closed | | Radiology | Diagnoses | Elia, | [facility] | | | | | Multifocal | Mary | 945 | | | | | lung | MD Millie | [address] | | | | | consolidatio | [address] | [address] | | | | | n (HCC) | [address] | [place], [place] | | | | | Procedures | [address] | [address] | | | | | CT Chest wo | [place], [place] | Phone: | | | | | Contrast | [address] | [phone] | | | | | | Phone: | Fax: | | | | | | [phone] | [phone] | | | | | | Fax: | | | | | | | [phone] | | +--------+--------+ + + + + Encounter Details +--------+ + + + + | Date | Type | Department | Care Team | Description | +--------+ + + + + | 11/20/ | Hospital | [facility] | Elia, | 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 | [facility] [address] | Mary Pinto, | consolidation (HCC) | | | | [address] | [address] | | | | | [place], [place] | [address] [facility], | | | | | [address] | [place] [address] | | | | | [phone] | [phone] | | | | | | | [...] 3 mLs by | | 0 | 08// | | | albuterol-ipratropiu | nebulization every [...] by | | 0 | 03/24/19 | 10/16/201 | | (XARELTO) 10 mg | mouth [...] | | | | | | [place] [address] | | | | | | [phone] | | | | | | | | +--------+---------+ + + + | 05/19/ | Office | Cardiology | Cristian Mccoy, | | | 2019 | Visit | | MD [address] | | | | | | [place] | | | | | | [address] | | | | | | | | +--------+---------+ + + + documented as of this encounter Procedures + +--------+ + + + | Procedure Name | Priori | Date/Time | Associated Diagnosis | Comments | | | ty | | | | + +--------+ + + + | CT CHEST WO CONTRAST | Routin | 11/20/2018 | Multifocal lung | Results for this | | | e | 12:28 PM | consolidation (HCC) | procedure are in the | | | | PDT | | results section. | + +--------+ + + + documented in this encounter Results CT Chest wo Contrast (11/20/2018 12:28 PM PDT) + + | Specimen | + + | | + + + + + | Narrative | Performed At | + + + | CT CHEST WITHOUT CONTRAST CLINICAL INFORMATION: Right middle | [facility] | | lobe pulmonary nodule and multiple areas of consolidation in a | | | patient with a history of aspiration and Rheumatoid arthritis. | | | COMPARISON: CT CHEST WO CONTRAST (06/09/2018); PROCEDURE: Axial | | | images through the chest. Multiplanar reconstructions. At least | | | one of the following CT dose optimization techniques were used: | | | Automated exposure control; Adjustment of mA and/or kV according to | | | patient size; Use of iterative reconstruction technique. FINDINGS: | | | Lungs, Pleura and Airways: -Right middle lobe nodule on series 4, | | | image 161 measuring 13 mm x 6 mm, unchanged. -Mild emphysematous | | | changes. -Combination of small amount of ground-glass and airspace | | | opacity noted involving the right upper lobe on series 4, image 66 | | | through 59. this appears to be new since the previous examination. | | | -Trace right pleural effusion. Small amount of calcified pleural | | | plaques. Mediastinum: Mild cardiomegaly. No pericardial effusion. | | | Aorta does not appear aneurysmal. Mild prominence of the | | | pulmonary arteries, potentially pulmonary arterial hypertension. | | | Probable surgical changes seen at the GE junction region. Lymph | | | Nodes: No enlarged lymph nodes seen. Upper Abdomen: No significant | | | abnormality appreciated within limits of unenhanced technique. | | | BODY WALL Soft Tissues: No significant abnormality appreciated. | | | Bones: No acute or destructive osseous process seen. IMPRESSION: | | | 1. Combination of small amount of ground-glass and airspace opacity | | | noted involving the right upper lobe. This appears to be new since | | | the previous examination. Part solid lung nodule greater than 5 mm | | | new or of indeterminate stability. Such nodules are common and have a | | | low incidence of developing into a clinically significant cancer. | | | Recommendation: Follow up chest CT in 6 months and then at 2 and 4 | | | years if nodule remains stable with solid component less than 6 mm. | | | (Fleischner society recommendation). 2. Unchanged right middle lobe | | | nodule measuring 13 mm x 6 mm. 3. Mild emphysematous changes. 4. | | | Please refer to the findings section for additional details. | | | Signed by: Priyanka Moon Amit Sign Date/Time: 11/20/2018 12:54 PM | | | | | + + + + + | Procedure Note | + + | Steven, Rad Results In - 11/20/2018 12:58 PM PDT | | CT CHEST WITHOUT CONTRAST | | | | CLINICAL INFORMATION: | | Right middle lobe pulmonary nodule and multiple areas of consolidation | | in a patient with a history of aspiration and Rheumatoid arthritis. | | | | COMPARISON: | | CT CHEST WO CONTRAST (06/09/2018); | | | | PROCEDURE: | | Axial images through the chest. Multiplanar reconstructions. | | | | At least one of the following CT dose optimization techniques were | | used: Automated exposure control; Adjustment of mA and/or kV according | | to patient size; Use of iterative reconstruction technique. | | | | FINDINGS: | | Lungs, Pleura and Airways: | | -Right middle lobe nodule on series 4, image 161 measuring 13 mm x 6 | | mm, unchanged. | | -Mild emphysematous changes. | | -Combination of small amount of ground-glass and airspace opacity noted | | involving the right upper lobe on series 4, image 66 through 59. this | | appears to be new since the previous examination. | | -Trace right pleural effusion. Small amount of calcified pleural | | plaques. | | Mediastinum: Mild cardiomegaly. No pericardial effusion. Aorta does | | not appear aneurysmal. Mild prominence of the pulmonary arteries, | | potentially pulmonary arterial hypertension. Probable surgical changes | | seen at the GE junction region. | | Lymph Nodes: No enlarged lymph nodes seen. | | Upper Abdomen: No significant abnormality appreciated within limits of | | unenhanced technique. | | | | BODY WALL | | Soft Tissues: No significant abnormality appreciated. | | Bones: No acute or destructive osseous process seen. | | | | IMPRESSION: | | 1. Combination of small amount of ground-glass and airspace opacity | | noted involving the right upper lobe. This appears to be new since the | | previous examination. Part solid lung nodule greater than 5 mm new or | | of indeterminate stability. Such nodules are common and have a low | | incidence of developing into a clinically significant cancer. | | Recommendation: Follow up chest CT in 6 months and then at 2 and 4 | | years if nodule remains stable with solid component less than 6 mm. | | (Fleischner society recommendation). | | 2. Unchanged right middle lobe nodule measuring 13 mm x 6 mm. | | 3. Mild emphysematous changes. | | 4. Please refer to the findings section for additional details. | | | | | | | | Signed by: Priyanka Moon, Joseph | | Sign Date/Time: 11/20/2018 12:54 PM | + + + +---------+ + [...]
--- OUTSIDE RECORDS SUMMARY | ~2019-02-20 | XMS | Encounter Summary ---
Demographics + + + | Address | [address] | | | [place] [address] | + + + | Home Phone | | + + + | Preferred Language | Unknown | + + + | Marital Status | | + + + | Anabaptism Affiliation | LUT | + + + | Race | White | + + + | Ethnic Group | Not or | + + + Author + + + | Author | [facility] | + + + | Organization | [facility] | + + + | Address | Unknown | + + + | Phone | Unavailable | + + + Support + + +---------+ + | Name | Relationship | Address | Phone | + + +---------+ + | Blossom Rose | ECON | Unknown | | + + +---------+ + Care Team Providers + +------+ + | Care Welding Equipment Sales Representative Name | Role | Phone | + +------+ + | Maycol Knutson MD | PCP | | + +------+ + Encounter Details +--------+ + + + + | Date | Type | Department | Care Team | Description | +--------+ + + + + | 10/17/ | Office | [facility] | Note, [...] as of this encounter Progress Notes Interface, Sustain Engineer In - 03/01/2006 3:03 AM PSTCLINIC DATE: 10/17/1998 OTOLARYNGOLOGY HEAD AND NECK SURGERY CLINIC SUBJECTIVE: Mr. 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 He is two weeks status post dilatation, up to a 32 Macedonian dilator two weeks ago. Concomitantly, he underwent laparotomy and Sudarshan fundoplication for severe reflux disease. He was seen today by Dr. Rojas in the clinic and was noted to have persistent difficulty clearing his throat with the sensation of the need to cough. He has had no problems with dyspnea but does describe some nighttime episodes of laryngospasm. He is seen here today for evaluation of these symptoms. He is scheduled for a modified barium swallow tomorrow to evaluate the patency of Sudarshan fundoplication. He is no longer on Prilosec. OBJECTIVE: On exam, he is a zllm-mhtsgnhut-zrfwchbcg gentleman, nontoxic, and in no obvious distress. Eye exam: Extraocular movements are intact. Pupils are equal, round and reactive to light and accommodation. Examination of the nose: Septum is midline, no nasal lesions noted. Examination of the mouth: Benign. Posterior oropharynx is clear. On palpation of the neck, there is no adenopathy, well healed incision Examination of the ears bilaterally is normal and no fluid. Tympanic membranes are clear. Neurologic exam is within normal limits. Cranial nerves II through XII intact. PROCEDURE: Nasopharyngoscopy is performed after the administration of 4% lidocaine with phenylephrine. The nasopharynx, oropharynx, hypopharynx, and larynx were visualized. There was scarring at the right side of the larynx consistent with hemilaryngectomy. There were significant supraglottic swelling. The vocal cords were visualized and were patent and appeared to move normally. We are unable to visualize beyond the vocal cords. There were significant erythema at the supraglottis as well. Remainder of the exam was unremarkable. IMPRESSION: Status post dilatation of subglottic stenosis with persistent symptoms of need to clear his throat. PLAN: He is scheduled to get a barium study tomorrow as per Dr. Rojas. At this point, we plan to start him on a Medrol Dosepak. He is scheduled to return to clinic to be evaluated by Dr. Arthur on December 02, 1998, at which time we will reevaluate the erythema and edema in his glottis. Connor Osorio M.D. PATTIE / [id number] / [id number] / [id number] signed by Interface, Sustain Engineer In at 03/01/2006 3:03 AM PSTInterf anatoly, Sustain Engineer In - 02/26/2006 5:02 AM PSTCLINIC DATE: 10/17/1998 SURGERY CLINIC Mr. Rose is a 55-year-old male, who comes in two weeks status post Sudarshan, with complaints of continued phlegm in the back of his throat. He has no nausea and vomiting and no symptoms of reflux, per se, but he does have continued symptoms of phlegm in the back of his throat. These were the same symptoms that he had prior to his Sudarshan. He states that they were slightly better immediately postoperatively, but they have been gradually getting worse since then. PHYSICAL EXAM: His heart is regular. His lungs are clear. His abdomen is soft and nontender. The incisions are well healed. ASSESSMENT/PLAN: Patient with laparoscopic Sudarshan and laryngeal dilation by Dr. Arthur, who comes in with continued complaints of phlegm and thin mmwnl-zw-yrykr material building up in the back of his throat. There is a question of whether this may be due to his Sudarshan that has failed or pulmonary secretions. We will have him see the ear, nose, and throat doctors today, and the phone call was made. He was sent down to their office to be seen. We will also order a barium swallow for tomorrow morning to evaluate his Sudarshan wrap and make sure it has not disrupted, although his symptoms do not necessarily indicate that it has. The patient was seen and examined with Dr. Barragan. Juan Manuel Berger M.D. Rohan Barragan M.D. KIMBERLY/marbella P C: 11/23/1998 elliott [id number]: Dylan Arthur MD ENT PV 01 docunoble chicas in this encounter Plan of Treatment Not on filedocumented as of this encounter Visit Diagnoses Not on filedocumented in this encounter"
--- OUTSIDE RECORDS SUMMARY | ~2019-02-20 | XMS | Encounter Summary ---
Demographics + + + | Address | [address] | | | [place] [address] | + + + | Home Phone | | + + + | Preferred Language | Unknown | + + + | Marital Status | | + + + | Hinduism Affiliation | LUT | + + + | Race | White | + + + | Ethnic Group | Not or | + + + Author + + + | Author | [facility] | + + + | Organization | [facility] | + + + | Address | Unknown | + + + | Phone | Unavailable | + + + Support + + +---------+ + | Name | Relationship | Address | Phone | + + +---------+ + | Blossom Rose | ECON | Unknown | | + + +---------+ + Care Team Providers + +------+ + | Care Police Communications Operator Name | Role | Phone | + +------+ + | Maycol Knutson MD | PCP | | + +------+ + Encounter Details +--------+ + + + + | Date | Type | Department | Care Team | Description | +--------+ + + + + | 01/25/ | Results | LAB CORE [address] | Billy, Faculty | | | 1997 | Only | [address] | [phone] | | | | | [place], [place] | | | | | | [address] | | | | | | [phone] | | | +--------+ + + + [...] + | SURGICAL PATHOLOGY | Routin | 01/25/1998 | | Results for this | | | e | | | procedure are in the | | | | | | results section. | + +--------+ + + + documented in this encounter Results SURGICAL PATHOLOGY (01/25/1998) + + + + + + | Component | Value | Ref Range | Performed | Pathologist | | | | | At | Signature | + + + + + + | SURGICAL | SOURCE OF SPECIMEN: SEE | | [facility] | | | PATHOLOGY | RESULTS | | DEPARTMENT | | | | Preliminary | | OF | | | | History:GROSS | | PATHOLOGY | | | | DESCRIPTIONReceived from | | | | | | [facility] | | | | | | [facility] | | | | | | [place], [place], are | | | | | | fiveH&E-stained slides | | | | | | bearing accession number | | | | | | [id number], sublabeled | | | | | | FS,A-B, and one | | | | | | H&E-stained slide | | | | | | labeled [id number]. The | | | | | | correspondingpathology | | | | | | reports are dated | | | | | | 11/01/97, 01/03/98, | | | | | | respectively. | | | | | | FINAL DIAGNOSISSLIDES | | | | | | [id number]:RIGHT TRUE | | | | | | VOCAL CORD LESION (A): | | | | | | FRAGMENTS OF SQUAMOUS | | | | | | EPITHELIUM SHOWING | | | | | | MODERATE DYSPLASIA, NO | | | | | | DEFINITE INVASION | | | | | | IDENTIFIEDRIGHT TRUE | | | | | | VOCAL CORD LESION (B): | | | | | | FRAGMENTS OF SQUAMOUS | | | | | | EPITHELIUM SHOWING | | | | | | MODERATE TO SEVERE | | | | | | DYSPLASIA, NO | | | | | | DEFINITIVE INVASION | | | | | | IDENTIFIEDRIGHT VOCAL | | | | | | CORD, BIOPSY | | | | | | ([id number]): | | | | | | FRAGMENTS OF SQUAMOUS | | | | | | MUCOSA WITH MODERATE TO | | | | | | SEVERE DYSPLASIA, | | | | | | NO DEFINITIVE INVASION | | | | | | IDENTIFIED(outside | | | | | | slides) Case | | | | | | reviewed by: Anselmo Heath | | | | | | Priyanka ColeT: | | | | | | 01/31/98/fSix slides are | | | | | | returned with the | | | | | | report. My | | | | | | electronic signature | | | | | [...] | + + + + + | [facility] | [address] | [place] [address] | | | PATHOLOGY | [address] | | | + + + + + documented in this encounter Visit Diagnoses Not on filedocumented in this encounter"
--- OUTSIDE RECORDS SUMMARY | ~2019-02-20 | XMS | Encounter Summary ---
Demographics + + + | Address | [address] | | | [place] [address] | + + + | Home Phone [...] [place] | | | | | [address] | | + + + + + Care Team Providers + +------+ + | Care Take Away Attendant Name | Role | Phone | + +------+ + | Maycol Knutson MD | PCP | | + +------+ + Encounter Details +--------+ + + + + | Date | Type | Department | Care Team | Description | +--------+ + + + + | 04/03/ | Hospital | [facility] | Conversion | Pain | | 2018 | Encounter | CONVERSION [address] | Transaction, | | | | | [address] | Provider Unknown | | | | | [place], [place] | [phone] | | | | | [address] | | | | | | [phone] | | | +--------+ + + + [...] | 03/05/ | Office | Pulmonology | [facility], | | | 2018 | Visit | | Mary Pinto, | | | | | | [address] | | | | | | [place], | | | | | | [place] [address] | | | | | | [phone] | | | | | | | | +--------+---------+ + + + | 05/19/ | Office | Cardiology | [place], [place], | | | 2020 | Visit | | [address] | | | | | | [place] | | | | | | [address] | | | | | | | [...]
--- OUTSIDE RECORDS SUMMARY | ~2019-02-20 | XMS | Encounter Summary ---
Demographics + + + | Address | [address] | | | [place] [address] | + + + | Home Phone | | + + + | Preferred Language | Unknown | + + + | Marital Status | | + + + | Pentecostal Affiliation | LUT | + + + | Race | White | + + + | Ethnic Group | Not or | + + + Author + + + | Author | [facility] | + + + | Organization | [facility] | + + + | Address | Unknown | + + + | Phone | Unavailable | + + + Support + + +---------+ + | Name | Relationship | Address | Phone | + + +---------+ + | Blossom Rose | ECON | Unknown | | + + +---------+ + Care Team Providers + +------+ + | Care Railway Track Worker Name | Role | Phone | [...] | Only | [address] | [phone] | | | | | [place], [place] | | | | | | [address] | | | | | | [phone] | | | +--------+ + + + [...] | + + + + + | [facility] | [address] | [place] [address] | | | PATHOLOGY | [address] | | | + + + + + documented in this encounter Visit Diagnoses Not on filedocumented in this encounter"
--- OUTSIDE RECORDS SUMMARY | ~2019-02-20 | XMS | Encounter Summary ---
Demographics + + + | Address | [address] | | | [place] [address] | + + + | Home Phone | | + + + | Preferred Language | Unknown | + + + | Marital Status | | + + + | Presybeterian Affiliation | 1028 | + + + | Race | Unknown | + + + | Ethnic Group | Unknown | + + + Author + + + | Author | [facility] | | | and [place] | + + + | Organization | [facility] | | [...] [place] | | | | | [address] | | + + + + + Care Team Providers + +------+ + | Care Mail Censor Name | Role | Phone | + [...] + + | 01/27/ | Office | [facility] | Aleksandar Tejeda PA | [place] (obstructive | | 2012 | Visit | SLEEP DISORDER 401 | [address] | sleep apnea) | | | | [address] | [place], [place] | (Primary Dx); | | | | [place] [address] | [address] | Victoriano-Wallace | | | | [phone] | | breathing | +--------+---------+ + + [...] BiPAP with nasal mask (Cary) obtained from: [facility] pressure: EPAP = 4cm;PSmin=0cm;PSmax=25cm;backup rate=auto Nights [...] of confusion with [facility] [place]. German and his were not in formed [...] be best for him to go to [facility]. German was also concerned about his [...] to change from [facility] [place] to [facility]. We have faxed [facility] a copy of his polysomnogram with the Rx for the ASV BiPAP. I will follow up again in 1 week, sooner prn. Thirty minutes were spent tbtu-[id number], with the majority of time spent in [...] | | | | | | [place] [address] | | | | | | [phone] | | | | | | | | +--------+---------+ + + + | 05/19/ | Office | Cardiology | Cristian Mccoy, | | | 2019 | Visit | | MD [address] | | | | | | [place] | | | | | | [address] | | | | | | | | +--------+---------+ + + + documented as of this encounter Visit Diagnoses + + | Diagnosis | + + | [place] (obstructive sleep apnea) - Primary Obstructive sleep apnea (adult) (pediatric) | + + | Victoriano-Wallace breathing Victoriano-Wallace respiration | + + documented in this encounter"
--- OUTSIDE RECORDS SUMMARY | ~2019-02-20 | XMS | Encounter Summary ---
Demographics + + + | Address | [address] | | | [place] [address] | + + + | Home Phone [...] Team Providers + +------+ + | Care Shop Director Name | Role | Phone | [...]
--- OUTSIDE RECORDS SUMMARY | ~2019-02-20 | XMS | Encounter Summary ---
Demographics + + + | Address | [address] | | | [place] [address] | + + + | Home Phone | | + + + | Preferred Language | Unknown | + + + | Marital Status | | + + + | Jewish Affiliation | 1028 | + + + | Race | Unknown | + + + | Ethnic Group | Unknown | + + + Author + + + | Author | [facility] | | | and [place] | + + + | Organization | [facility] | | | [...] [place] | | | | | [address] | | + + + + + Care Team Providers + +------+ + | Care Real Estate Officer Name | Role | Phone | [...] + + | 01/12/ | Telephone | [facility] | Elia, | Other (03/05 | | 2019 | | PULMONOLOGY [address] | Mary Pinto, | appointment) | | | | [address] | [address] | | | | | [place], [place] | [place], | | | | | [address] | [place] [id number] | | | | | [phone] | [phone] | | | | | | | [...] | | | | | | [place] [address] | | | | | | [phone] | | | | | | | | +--------+---------+ + + + | 05/19/ | Office | Cardiology | Cristian Mccoy, | | | 2020 | Visit | | [address] | | | | | | [place] | | | | | | [address] | | | | | | | | +--------+---------+ + + + documented as of this encounter Visit Diagnoses Not on filedocumented in this encounter"
--- OUTSIDE RECORDS SUMMARY | ~2019-02-20 | XMS | Encounter Summary ---
Demographics + + + | Address | [address] | | | [place] [address] | + + + | Home Phone | | + + + | Preferred Language | Unknown | + + + | Marital Status | | + + + | Hoahaoism Affiliation | 1028 | + + + | Race | Unknown | + + + | Ethnic Group | Unknown | + + + Author + + + | Author | [facility] | | | and [place] | + + + | Organization | [facility] | | | [...] [place] | | | | | [address] | | + + + + + Care Team Providers + +------+ + | Care Cardiology Technologist Name | Role | Phone | + [...] + + | 09/09/ | Office | [facility] | Sharan Bruno | [place] (obstructive | | 2014 | Visit | SLEEP DISORDER [address] | MD [address] | sleep apnea) | | | | [address] | [address] [place] | (Primary Dx); | | | | [place] [address] | [place] [address] | Central sleep apnea | | | | [phone] | [phone] | due to Victoriano-Tomas | | | [...] Polysomnography under "Media" se ction in the [employer] EMR. Definitions (The AASM Manual for the [...] ventricle: Left ventricular size is normal with czoc-mu-aqmjulhb concentric left ventricular hypertrophy, and normal left [...] IMPRESSIONS: 1. Mild left atrial dilatation. 2. Xtqv-jr-ldhuaipc concentric left ventricular hypertrophy. No LVOT obstruction [...] E/E Ratio: Signed by: Kaitlynn Small MD [facility] 08/12/2014 9:20 He and his both note that he is feeling more fatigued and tired since stopping the ASV -BPAP. BP 128/72 | Pulse 95 | Resp 16 | Wt 81.33 kg (179 lb 4.8 oz) | SpO2 97% A: [place] + CSA-ALTERATION MANAGER: Although less in severity than when first [...] today that he take his unit by [place] to have them chec k it to assure that the heated humidity is properly functioning. I suspect that his nasal/si nus issues are likely secondary to lack of humidification from his ASV-BPAP. He does have an ENT appointment in the [facility] in 2 weeks - we will find out with whom he has an appointm ent and make sure that his sleep records are forwarded to that office. P: Restart ASV-BPAP at his previous settings. [place] to check his ASV-BPAP to assure that [...] | | | | | | [place] [address] | | | | | | [phone] | | | | | | | | +--------+---------+ + + + | 05/19/ | Office | Cardiology | Cristian Mccoy, | | | 2019 | Visit | | MD [address] | | | | | | [place] | | | | | | [id number] | | | | | | | [...]
--- OUTSIDE RECORDS SUMMARY | ~2019-02-20 | XMS | Encounter Summary ---
Demographics + + + | Address | [address] | | | [place] [address] | + + + | Home Phone | | + + + | Preferred Language | Unknown | + + + | Marital Status | | + + + | Episcopal Affiliation | LUT | + + + | Race | White | + + + | Ethnic Group | Not or | + + + Author + + + | Author | [facility] | + + + | Organization | [facility] | + + + | Address | Unknown | + + + | Phone | Unavailable | + + + Support + + +---------+ + | Name | Relationship | Address | Phone | + + +---------+ + | Blossom Rose | ECON | Unknown | | + + +---------+ + Care Team Providers + +------+ + | Care Multiple Drum Sander Helper Name | Role | Phone | [...] | | | | ENT SPEECH | [place], [place] | [address] | | | | | THERAPY | [address] | Physician's | | | | | | Phone: | [place] | | | | | | [phone] | [place], [place] | | | | | | Fax: | [address] | | | | | | [phone] | Phone: | | | | | | | [phone] | | | | | | | Fax: | | | | | | | [phone] | +--------+--------+ + + + + Encounter Details +--------+---------+ + + + | Date | Type | Department | Care Team | Description | +--------+---------+ + + + | 11/30/ | Office | Otolaryngology | Cj Kiser, | Dysphagia, | | 2009 | Visit | Speech Therapy | REPAIR SUPERVISOR [address] | pharyngeal phase; | | | | Services at [facility] | [address] | Dysphagia, | | | | [address] | [place] [address] | pharyngoesophageal | | | | [address] Mailcode: | [phone] | phase | | | | [address] Physician's | | | | | | [place], | | | | | | [place] [address] | | | | | | [phone] | | | +--------+---------+ + + + [...] Kiser SLP - 11/30/2009 9:01 PM PDTClinic: [facility] Referring Physician: ALEXEI HATFIELD Otolaryngology [address] [place] [address] PCP: Maycol Knutson MD Medical Diagnosis: Dysphagia, [...] of Larynx cancer; Radiation fibrosis; Glottic stenosis; PA (m yocardial infarction); PUD (peptic ulcer disease); [...] patient currently lives with their spouse in [place], [place]. COMMUNICATION/SPEECH STATUS: The patient communicates verbally. [...] verified. The patient was evaluated in the [facility] 10th floor Radiology suite & was observed [...] you for this consult. Cj Kiser, MS, CCC-REPAIR SUPERVISOR [facility] [place] Dept. of Otolaryngology, [address] [facility] [place] [address] documented in this en counter Plan of Treatment Not on filedocumented as of this encounter Procedures + +--------+ + + + | Procedure Name | Priori | Date/Time | Associated Diagnosis | Comments | | | ty | | | | + +--------+ + + + | [place] EVAL,SWALLOW | Routin | 11/30/2009 | Dysphagia, | | | FUNCTION,CINE/VIDEO | e | 9:02 PM | pharyngeal phase | | | RECORD | | PDT | Dysphagia, | | | | | | pharyngoesophageal | | | | | | phase | | + +--------+ + + + | [place] EVAL,ORAL & | Routin | 11/30/2009 | [...]
--- OUTSIDE RECORDS SUMMARY | ~2019-02-20 | XMS | Encounter Summary ---
Demographics + + + | Address | [address] | | | [place] [address] | + + + | Home Phone [...] | Author | [facility] | + + + | Organization | [facility] | + + + | Address | Unknown | + + + | Phone | Unavailable | + + + Support + + +---------+ + | Name | Relationship | Address | Phone | + + +---------+ + | Blossom Rose | ECON | Unknown | | + + +---------+ + Care Team Providers + +------+ + | Care Launching Pad Mechanic Name | Role | Phone | [...] | Only | [address] | [phone] | | | | | [place], [place] | | | | | | [address] | | | | | | [phone] | | | +--------+ + + + [...] from | | | | | | [facility] | | | | | | [facility] | | | | | | [place], [place], are | | | | | [...] BIOPSY | | | | | | ([phone]): | | | | | | FRAGMENTS [...] | + + + + + | [facility] | [address] | [place] [address] | | | PATHOLOGY | [address] | | | + + + + + documented in this encounter Visit Diagnoses Not on filedocumented in this encounter"
--- OUTSIDE RECORDS SUMMARY | ~2019-02-20 | XMS | Encounter Summary ---
Demographics + + + | Address | [address] | | | [place] [address] | + + + | Home Phone | | + + + | Preferred Language | Unknown | + + + | Marital Status | | + + + | Taoism Affiliation | LUT | + + + | Race | White | + + + | Ethnic Group | Not or | + + + Author + + + | Author | [facility] | + + + | Organization | [facility] | + + + | Address | Unknown | + + + | Phone | Unavailable | + + + Support + + +---------+ + | Name | Relationship | Address | Phone | + + +---------+ + | Blossom Rose | ECON | Unknown | | + + +---------+ + Care Team Providers + +------+ + | Care Clay Preparation Supervisor Name | Role | Phone | + +------+ + | Maycol Knutson MD | PCP | | + +------+ + Encounter Details +--------+ + + + + | Date | Type | Department | Care Team | Description | +--------+ + + + + | 04/27/ | Office | [facility] INTERNAL | Note, [...] of this encounter Progress Notes Interface, Medical Record Specialist In - [facility]13[facility]2006 [facility]: [facility]INIC SUBJECTIVE: The patient was seen in the [facility] for a bedside evaluation. He was brought over from the inpatient unit. OBJECTIVE: The patient was presented with thin liquids with blue dye, nectar-thick liquids with blue dye, and apple sauce with blue dye. Throughout the evaluation, the patient coughed intermittently with each of these textures, but there was no evidence of blue dye coughed through the trach site. During each of the swallows for each of these textures, the patient demonstrated an effortful texture and complained of some amount of pain during the swallow. In addition, the patient performed double swallows to clear the material swallowed. Upon completion of the evaluation and textures presented, the patient was suctioned by the nurse present, and there was no evidence of blue dye during the suctioning process. The patient indicates that he felt comfortable during these swallows and was interested in initiating p.o. trials. ASSESSMENT AND PLAN: The patient appears safe to initiate p.o. trials pureed textures with regular liquids at this time. The patient should be monitored for any signs of blue dye during any suction by the nursing staff. It is recommended that the patient initiate pureed textures with regular liquids with close supervision and monitoring the amount of intake and signs or symptoms of aspiration. Speech Pathology Department will follow this patient and advance diet as indicated. Anel Haddad, [facility])-ELECTRONICS TECHNICIAN APPRENTICE Dylan Arthur M.D. Speech Language Pathologist CRISTIN / [place] [id number] / [id number] / [id number] / [id number] Tdocumented in this encounter Plan of Treatment Not on filedocumented as of this encounter Visit Diagnoses Not on filedocumented in this encounter"
--- OUTSIDE RECORDS SUMMARY | ~2019-02-20 | XMS | Encounter Summary ---
Demographics + + + | Address | [address] | | | [place] [address] | + + + | Home Phone [...] Providers + +------+ + | Care Automotive Sales Associate Name | Role | Phone | [...] as of this encounter Progress Notes Interface, Photographer News In - 02/05/2006 1:06 AM PSTCLINIC DATE: [...] previously scheduled. Dylan Arthur M.D. KRIS / [id number] / [id number] / [id number] / [id number] signed by Interface, Photographer News In at 02/05/2006 1:06 AM PSTdocume nted in this encounter Plan of Treatment Not on filedocumented as of this encounter Visit Diagnoses Not on filedocumented in this encounter"
--- OUTSIDE RECORDS SUMMARY | ~2019-02-20 | XMS | Encounter Summary ---
Demographics + + + | Address | [address] | | | [place] [address] | + + + | Home Phone [...] Team Providers + +------+ + | Care Power Press Tender Name | Role | Phone | [...] as of this encounter Progress Notes Interface, Shirring Tender In - 01/26/2006 1:09 AM PSTCLINIC DATE: [...] for videostroboscopy. Dylan Arthur M.D. Kaycee / [id number] / [id number] / [id number] / cc: Moisés Quezada M.D. [address] [facility] [place] [address] Maycol Knutson M.D. [address] [facility] [place] [address] [id number] signed by Interface, Shirring Tender In at 01/26/2006 1:09 AM PSTdocume nted in this encounter Plan of Treatment Not on filedocumented as of this encounter Visit Diagnoses Not on filedocumented in this encounter"
--- OUTSIDE RECORDS SUMMARY | ~2019-02-20 | XMS | Encounter Summary ---
Demographics + + + | Address | [address] | | | [place] [address] | + + + | Home Phone | | + + + | Preferred Language | Unknown | + + + | Marital Status | | + + + | Moravian Affiliation | LUT | + + + | Race | White | + + + | Ethnic Group | Not or | + + + Author + + + | Author | [facility] | + + + | Organization | [facility] | + + + | Address | Unknown | + + + | Phone | Unavailable | + + + Support + + +---------+ + | Name | Relationship | Address | Phone | + + +---------+ + | Blossom Rose | ECON | Unknown | | + + +---------+ + Care Team Providers + +------+ + | Care Cable Television Installer Name | Role | Phone | + +------+ + | Maycol Knutson MD | PCP | | + +------+ + Encounter Details +--------+ + + + + | Date | Type | Department | Care Team | Description | +--------+ + + + + | 11/30/ | Hospital | Diagnostic Imaging | | | | 2009 | Encounter | Services at [facility] | | | | | | [address] | | | | | | [place] Mailcode: | | | | | | [address] [facility] | | | | | | [place], [place] | | | | | | [address] | | | | | | [phone] | | | +--------+ + + + [...] | + +--------+ + + + | MODIFIED BARIUM | Routin | 11/30/2009 | Laryngeal cancer | Results for this | | SWALLOWING | e | 10:14 AM | (HCC) Pharyngeal | procedure are in the | | | | PDT | dysphagia | results section. | + +--------+ + + + documented in this encounter Results MODIFIED BARIUM SWALLOWING (11/30/2009 [...] | | | | | | [facility] speechpathologist. | | | | | | [...]
--- OUTSIDE RECORDS SUMMARY | ~2019-02-20 | XMS | Encounter Summary ---
Demographics + + + | Address | [address] | | | [place] [address] | + + + | Home Phone [...] + | Author | [facility] | | | and [place] | + + + | Organization | [facility] | | | and [...] [place] | | | | | [address] | | + + + + + Care Team Providers + +------+ + | Care Maintenance Representative Name | Role | Phone | + +------+ + | Maycol Knutson MD | PCP | | + +------+ + Encounter Details +--------+ + + + + | Date | Type | Department | Care Team | Description | +--------+ + + + + | 10/22/ | Hospital | [facility] | Conversion | | | 2015 | Encounter | [facility] | Transaction, | | | | | CLINIC [address] | Provider Unknown | | | | | [place], [place] | | | | | | [address] | (Fax) | | | | | [phone] | | | +--------+ + + + [...] | | | | | | [place] [address] | | | | | | [phone] | | | | | | | | +--------+---------+ + + + | 05/19/ | Office | Cardiology | Cristian Mccoy, | | | 2020 | Visit | | MD [address] | | | | | | [place] | | | | | | [address] | | | | | | | | +--------+---------+ + + + documented as of this encounter Procedures + +--------+ + + + | Procedure Name | Priori | Date/Time | Associated Diagnosis | Comments | | | ty | | | | + +--------+ + + + | EXTERNAL LAB: [facility] | Routin | 10/22/2014 | | Results for this | | | e | 12:02 PM | | procedure are in the | | | | PDT | | results section. | + +--------+ + + + documented in this encounter Results External Lab: [facility] (10/22/2014 12:02 PM PDT) + + + + + + | Component | Value | Ref Range | Performed | Pathologist | | | | | At | Signature | + + + + + + | WBC | 9.22Comment: Testing | 3.80 - 11.00 | EXTERNAL | | | | performed at [facility], [address] | K/uL | LAB | | | | [address], | | | | | | [place] [address] | | | | + + + + + + | RED CELL | 4.02 (L)Comment: Testing | 4.20 - 5.70 | EXTERNAL | | | COUNT | performed at [facility], [address] | M/uL | LAB | | | | [address], | | | | | | [place] [address] | | | | + + + + + + | Hgb | 12.2 (L)Comment: Testing | 13.2 - 17.0 | EXTERNAL | | | | performed at [facility], [address] | g/dL | LAB | | | | [address], | | | | | | [place] [address] | | | | + + + + + + | Hematocrit, | 36.8 (L)Comment: Testing | 39.0 - 50.0 % | EXTERNAL | | | POC | performed at [facility], [address] | | LAB | | | | [address], | | | | | | [place] [address] | | | | + + + + + + | MCV | 91.7Comment: Testing | 80.0 - 100.0 fl | EXTERNAL | | | | performed at [facility], [address] | | LAB | | | | [address], | | | | | | [place] [address] | | | | + + + + + + | MCH | 30.4Comment: Testing | 27.0 - 34.0 pg | EXTERNAL | | | | performed at [facility], [address] | | LAB | | | | [address], | | | | | | [place] [address] | | | | + + + + + + | MCHC | 33.2Comment: Testing | 32.0 - 35.5 | EXTERNAL | | | | performed at [facility], [address] | g/dL | LAB | | | | [address], | | | | | | [place] [address] | | | | + + + + + + | RDW-CV | 58.6 (H)Comment: Testing | 37 - 53 fl | EXTERNAL | | | | performed at [facility], [address] | | LAB | | | | [address], | | | | | | [place] [address] | | | | + + + + + + | Platelet | 166Comment: Testing | 150 - 400 K/uL | EXTERNAL | | | Count | performed at [facility], [address] | | LAB | | | Plasma | [address], | | | | | | [place] [address] | | | | + + + + + + | MPV | 8.7Comment: Testing | fl | EXTERNAL | | | | performed at [facility], [address] | | LAB | | | | [address], | | | | | | [place] [address] | | | | + + + + + + | Differentia | MANUALComment: Testing | | EXTERNAL | | | l Type | performed at [facility], [address] | | LAB | | | | [address], | | | | | | [place] [address] | | | | + + + + + + | Segmented | 81Comment: Testing | % | EXTERNAL | | | Neutrophils | performed at [facility], [address] | | LAB | | | Manual | [address], | | | | | | [place] [address] | | | | + + + + + + | % Bands | 4Comment: Testing | % | EXTERNAL | | | | performed at [facility], [address] | | LAB | | | | [address], | | | | | | [place] [address] | | | | + + + + + + | Lymphocytes | 8Comment: Testing | % | EXTERNAL | | | Manual | performed at [facility], [address] | | LAB | | | | [address], | | | | | | [place] [address] | | | | + + + + + + | Monocytes | 6Comment: Testing | % | EXTERNAL | | | Manual | performed at [facility], [address] | | LAB | | | | [address], | | | | | | [place] [address] | | | | + + + + + + | Eosinophils | 1Comment: Testing | % | EXTERNAL | | | Manual | performed at [facility], [address] | | LAB | | | | [address], | | | | | | [place] [address] | | | | + + + + + + | Absolute | 7.47 (H)Comment: Testing | 1.90 - 7.40 | EXTERNAL | | | Neutrophils | performed at [facility], [address] | K/uL | LAB | | | | [address], | | | | | | [place] [address] | | | | + + + + + + | Bands | 0.37 (H)Comment: Testing | 0.00 - 0.20 | EXTERNAL | | | Manual | performed at [facility], [address] | K/uL | LAB | | | | [address], | | | | | | [place] [address] | | | | + + + + + + | Absolute | 0.74 (L)Comment: Testing | 1.00 - 3.90 | EXTERNAL | | | Lymphocytes | performed at [facility], [address] | K/uL | LAB | | | | [address], | | | | | | [place] [address] | | | | + + + + + + | Absolute | 0.55Comment: Testing | 0.00 - 0.80 | EXTERNAL | | | Monocytes | performed at [facility], [address] | K/uL | LAB | | | | [address], | | | | | | [place] [address] | | | | + + + + + + | Absolute | 0.09Comment: Testing | 0.00 - 0.50 | EXTERNAL | | | Eosinophils | performed at [facility], [address] | K/uL | LAB | | | | [address], | | | | | | [place] [address] | | | | + + + + + + | RBC | 2+Comment: ANISOTesting | | EXTERNAL | | | Morphology | performed at [facility], [address] | | LAB | | | | [address], | | | | | | [place] [address] | | | | | | | [...]
--- OUTSIDE RECORDS SUMMARY | ~2019-02-20 | XMS | Encounter Summary ---
Demographics + + + | Address | [address] | | | [place] [address] | + + + | Home Phone [...] Team Providers + +------+ + | Care Barmaid Name | Role | Phone | + [...] | Transcriptions | + + | Interface, Territory Sales Manager In - 03/03/2006 3:11 AM PST | | [facility] [facility] | | [place], [place] [address] [place] | | [facility] HospitalOPERATION RECORDMed Rec No.: [id number] Date: | | [...] diaphragmatic | | hiatus wasreapproximated.Next, a #56 Nigerien bougie was passed by the anesthesiologist | [...] M.D.JOSE L/Shereen: 09/30/1998T: 10/13/1998 12:21 | | [id number]: MAYCOL CALLAHAN MD [address] [place] [address] [address] [place] [address] | | Priyanka Guadarrama M.D., F.A.C.P., F.A.C.G. [...] |reapproximated. | | | |Next, a #56 Nigerien bougie was passed by the anesthesiologist through [...] |DN/ljm | | | | P | |[id number] | | | |cc: MAYCOL CALLAHAN MD | | [address] | | [place] [address] | | | | | | Dylan Arthur M.D. | | | | | | M. Kelby Zuñiga M.D., F.A.C.P., F.A.C.G. | + + documented in this encounter Visit Diagnoses Not on filedocumented in this encounter"
--- OUTSIDE RECORDS SUMMARY | ~2019-02-20 | XMS | Encounter Summary ---
Demographics + + + | Address | [address] | | | [place] [address] | + + + | Home Phone | | + + + | Preferred Language | Unknown | + + + | Marital Status | | + + + | Pentecostalism Affiliation | LUT | + + + | Race | White | + + + | Ethnic Group | Not or | + + + Author + + + | Author | [facility] | + + + | Organization | [facility] | + + + | Address | Unknown | + + + | Phone | Unavailable | + + + Support + + +---------+ + | Name | Relationship | Address | Phone | + + +---------+ + | Blossom Rose | ECON | Unknown | | + + +---------+ + Care Team Providers + +------+ + | Care Tractor Trailer Truck Driver Name | Role | Phone | [...] Esophageal | Alexei S, | [address] | | | | | stenosis | MD [address] | [place] | | | | | Procedures | [address] | Mailcode: | | | | | X-RAY | Kimberly Patterson | [facility] | | | | | ESOPHAGRAM | [facility] [place] | for Health | | | | | | [address] | and Healing, | | | | | | Phone: | [facility], | | | | | | [phone] | 3rd Floor | | | | | | Fax: | [place], [place] | | | | | | [phone] | [address] | | | | | | | Phone: | | | | | | | [phone] | | | | | | | Fax: | | | | | | | [phone] | +--------+--------+ + + + + Encounter Details +--------+ + + + + | Date | Type | Department | Care Team | Description | +--------+ + + + + | 11/30/ | Hospital | Diagnostic Imaging | | | | 2009 | Encounter | [facility] | | | | | | [address] | | | | | | Kimberly Patterson Mailcode: | | | | | | [address] [facility] | | | | | | [place], [place] | | | | | | [address] | | | | | | [phone] | | | +--------+ + + + [...] | | + +---------+ + + | [facility] DEPARTMENT OF | | | | | RADIOLOGY | | | | + +---------+ + + documented in this encounter Visit Diagnoses + + | Diagnosis | + + | Esophageal stenosis Stricture and stenosis of esophagus | + + documented in this encounter"
--- OUTSIDE RECORDS SUMMARY | ~2019-02-20 | XMS | Encounter Summary ---
Demographics + + + | Address | [address] | | | [place] [address] | + + + | Home Phone [...] Providers + +------+ + | Care Rn Critical Care Name | Role | Phone | + [...] | | | | | Kimberly Patterson [place], | | | | | | [place] [address] | | | +--------+ + + + [...] | + + | 04/27/1999 11:24 AM [facility] Anesthesia PostOp Report | | | | Patient: GERMAN ROSE Med Rec: [id number] Sex M Bdate: 1945 | | Date/Time Data | | Entered Into [facility] | | Anesth PostOp | | Surgery Date [id number] 04/27/99 11:24 | | [id number] 01/12/99 11:31 | | Anesthesiologist RICKEY PEPPER 04/27/99 11:24 | | RICKEY MUÑOZ 01/12/99 11:31 | | Resident Anesthesiolog JESSICA INFANTE 01/12/99 11:31 | | | + + documented in this encounter Visit Diagnoses Not on filedocumented in this encounter"
--- OUTSIDE RECORDS SUMMARY | ~2019-02-20 | XMS | Encounter Summary ---
Demographics + + + | Address | [address] | | | [place] [address] | + + + | Home Phone | | + + + | Preferred Language | Unknown | + + + | Marital Status | | + + + | Roman Catholic Affiliation | 1028 | + + + | Race | Unknown | + + + | Ethnic Group | Unknown | + + + Author + + + | Author | [facility] | | | and [place] | + + + | Organization | [facility] | | [...] [place] | | | | | [address] | | + + + + + Care Team Providers + +------+ + | Care Fastener Sewing Machine Operator Name | Role | Phone | + +------+ + | Nelson Laird MD | PCP | | + +------+ + Encounter Details +--------+ + + + + | Date | Type | Department | Care Team | Description | +--------+ + + + + | 01/30/ | Orders Only | [facility] | Bridget Milian, MAYA | | | 2017 | | VASCULAR SURGERY | [address] | | | | | [address] | [place], [place] | | | | | [address] [place] | [address] | | | | | [place], [place] | | | | | | [address] | | | | | | [phone] | | | +--------+ + + + [...] | | | | | | [place] [address] | | | | | | [phone] | | | | | | | | +--------+---------+ + + + | 05/19/ | Office | Cardiology | Cristian Mccoy, | | | 2019 | Visit | | MD [address] | | | | | | [place], [place] | | | | | | [address] | | | | | | | [...]
--- OUTSIDE RECORDS SUMMARY | ~2019-02-20 | XMS | Encounter Summary ---
Demographics + + + | Address | [address] | | | [place] [address] | + + + | Home Phone | | + + + | Preferred Language | Unknown | + + + | Marital Status | | + + + | Church Affiliation | LUT | + + + [...] Team Providers + +------+ + | Care Assistant Refinery Operator Name | Role | Phone | [...] as of this encounter Progress Notes Interface, Sales Project Engineer In - 03/03/2006 3:[address] [facility] [place] [facility] and [place] [address] [place], [place] [address] or October 03, 1998 RICKEY GAGNON MD [facility] DEPT OTOLARYNGOLOGY [address] [facility] [address] RE: German Rose MR#: [id number] Dear Willie: [...] BCS:x17 cc: Deandra Zuñiga M.D., F.A.C.P., F.A.CJeannette Research Affiliate, Medicine [facility] [id number] signed by Interface, Sales Project Engineer In at 03/03/2006 3:11 AM PSTdocume nted in this encounter Plan of Treatment Not on filedocumented as of this encounter Visit Diagnoses Not on filedocumented in this encounter"
--- OUTSIDE RECORDS SUMMARY | ~2019-02-20 | XMS | Encounter Summary ---
Demographics + + + | Address | [address] | | | [place] [address] | + + + | Home Phone [...] + + + | Author | [facility] | + + + | Organization | [facility] | + + + | Address | Unknown | + + + | Phone | Unavailable | + + + Support + + +---------+ + | Name | Relationship | Address | Phone | + + +---------+ + | Blossom Rose | ECON | Unknown | | + + +---------+ + Care Team Providers + +------+ + | Care Basketball Player Name | Role | Phone | + +------+ + | Maycol Knutson MD | PCP | | + +------+ + Encounter Details +--------+ + + + + | Date | Type | Department | Care Team | Description | +--------+ + + + + | 06/15/ | Office | [facility] | Note, [...] as of this encounter Progress Notes Interface, Telecommunications Technician In - 02/07/2006 5:08 AM PSTCLINIC DATE: 06/16/1999 OTOLARYNGOLOGY CLINIC SUBJECTIVE: Mr. Rose is seen back in followup with respect to his laryngotracheoplasty. He is feeling pretty well. He continues to have intermittent mucous plugs in his T-tube but is working well with that. He breathes pretty well with his T-tube plug but not yet at the point where he can plug in on a continuous basis. OBJECTIVE: Flexible fiberoptic laryngoscopy is done, both antegrade and retrograde through the tube. I can still see some eschar overlying the anterior cartilaginous graft, and therefore, do not feel we are at a point that we can remove the stent; however, the rest of the airway looks good. His voice is also strong. ASSESSMENT: Status post laryngotracheoplasty, doing reasonably well. PLAN: I will see him back here in one month, at which time we will change him to a Sherman canula. He was given a refill of the prescription for Tylenol with codeine as he has intermittent pain in his throat, which I think is reasonable, and also he will continue on antibiotics as well as Prevacid, which were refilled. Dylan Arthur M.D. KRIS / [id number] / [id number] / [id number] / [id number] signed by Interface, Telecommunications Technician In at 02/07/2006 5:08 AM PSTdocume nted in this encounter Plan of Treatment Not on filedocumented as of this encounter Visit Diagnoses Not on filedocumented in this encounter"
--- OUTSIDE RECORDS SUMMARY | ~2019-02-20 | XMS | Encounter Summary ---
Demographics + + + | Address | [address] | | | [place] [address] | + + + | Home Phone | | + + + | Preferred Language | Unknown | + + + | Marital Status | | + + + | Restorationist Affiliation | [id number] | + + + [...] [place] | | | | | [address] | | + + + + + Care Team Providers + +------+ + | Care Business Services Specialist Sales Name | Role | Phone | + [...] | n (HCC) | [address] | [place], [place] | | | | | Procedures | [address] | [address] | | | | | CT Chest wo | [place], [place] | Phone: | | | | | Contrast | [address] | [phone] | | | | | | Phone: | Fax: | | | | | | [phone] | [phone] | | | | | | Fax: | | | | | | | [phone] | | +--------+--------+ + + + + Reason for Visit +--------+ + | Reason | Comments | +--------+ + | COPD | | +--------+ + Encounter Details +--------+---------+ + + + | Date | Type | Department | Care Team | Description | +--------+---------+ + + + | 11/03/ | Office | [facility] | Elia, | COPD, moderate (HCC) | | 2019 | Visit | PULMONOLOGY [address] | Mary Pinto, | (Primary Dx); | | | | [address] | [address] | Multifocal lung | | | | [place], [place] | [address] [place], | consolidation (HCC); | | | | [address] | [place] [address] | Aspiration | | | | [phone] | [phone] | pneumonia, | | | | | | unspecified | | | | | | aspiration pneumonia | | | | | | type, unspecified | | | | | | laterality, | | | | | | unspecified part of | | | | | | lung (HCC); | | | | | | Rheumatoid | | | | | | arthritis, involving | | | | | | unspecified site, | | | | | | unspecified | | | | | | rheumatoid factor | | | | | | presence (HCC); | | | | | | Personal history of | | | | | | tobacco use, | | | | | | presenting hazards | | | | | | to health; Cancer of | | | | | | vocal cord (HCC) | +--------+---------+ + + + Social [...] + + + | Blood Pressure | 127/60 | 11/03/2018 1:47 PM | | | | | PDT | | + + + + + | Pulse | 49 | 11/03/2018 1:47 PM | | | | | PDT | | + + + + + | Temperature | 36.3 C (97.4 F) | 11/03/2018 1:47 PM | | | | | PDT | | + + + + + | Respiratory Rate | - | - | | + + + + + | Oxygen Saturation | 98% | 11/03/2018 1:47 PM | | | | | PDT | | + + + + + | Inhaled Oxygen | - | - | | | Concentration | | | | + + + + + | Weight | 71.7 kg (158 lb) | 11/03/2018 1:47 PM | | | | | PDT | | + + + + + | Height | - | - | | + + + + + | Body Mass Index | 24.75 | 06/09/2018 2:47 PM | | | | | PDT | | + + + + + documented in this encounter Progress Notes Mary Rodrigez MD - 11/03/2018 2:00 PM PDTFormatting of this note might be d ifferent from the original. Subjective: Patient ID: German Rose is a 73 y.o. 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 HPI Mr Rose is a 72 yr old man with a complex medical history including ischemic CMP, AF on Xar elto, a history of vocal cord cancer post surgery and radiation txt (had a trach for 6 weeks , and then had a reconstruction of his VC after radiation in [facility]). He has been found to dona martinez dysphagia and aspiration, and was admitted to [facility] in October for worsening cough associate d with hemoptysis. He was treated with IV abx, and was discharged on a course of Augmentin a nd then Clindamycin. He now complains of persistent loose stools, that are foul smelling, an d also of low grade fever. He is fatigued and energy is low since having persistent diarrhea . He has been diagnosed with COPD many years ago. He is not on oxygen supplementation. He is maintained on Advair 250-50 mcg BID, and prn albuterol HFA. He has been using his Duoneb neb ulization about every 4 days. He does have a chronic cough with yellow sputum, and now denie s hemoptysis. He is short of breath, usually with strenuous exertion. He does exercises he l earned in [place] (has finished participating in this) at home has not found any trouble with thi s. He denies being short of breath with usual activities at home, and with showering.He does get winded with walking an incline. He says that his pedal edema is better. He denies chest pains, or PNDs. He does sleep at a semi incline, and he wakes up intermittently at night. Anne martinez has been diagnosed with NOLA but he was ordered by his Sleep MD to stop his BiPAP for some reason. He has not been using any PAP txt currently. He is not on oxygen supplementation. He does have baseline dysphagia and aspiration events which his thinks has been better si nce getting seen by Speech txt. He reports of having persistent diarrhea as above, and havin g fatigue and low grade fevers. He has RA, and is on prednisone at 7.5 mg daily, along with Azathioprine at 100 mg daily. Interval History Narrative/Comments: Has done relatively well without acute exacerbations. However, has bee n noting increasing aspiration events, especially with smaller and more granular food consis tency. Arthralgias are better. Remains on 5 mg of prednisone daily, and has come off methotr exate. He remains on azathioprine. The patient reports the following: DYSPNEA: On moderate exertion. Able to walk more than 200 feet without getting winded. Has been out more with friends and doing more activities. COUGH: Has denied significant cough. However, has been coughing with eating lately. ACUTE EXACERBATION: None recently. EXPOSURES: Former smoker. EXERCISE: No formal exercise but has been more active. ACTIVITIES OF DAILY LIVING: Independent, without usual difficulty apart from the more stre nuous chores. Able to get dressed and shower without difficulty. CONSTITUTIONAL SYMPTOMS: Energy is fair. Denies fevers, chills or night sweats. SINO-NASAL SYMPTOMS: Denies. REFLUX or REGURGITATION: Has had occasional coughing and likely aspiration with drinking fluids and with certain consistency of foods. Denies uncontrolled reflux. . SLEEP: Has had no isses with this. CHEST PAINS: None ORTHOPNEA OR PND (Paroxysmal Nocturnal Dyspnea): None PEDAL EDEMA: Chronic edema on the L ankle. OTHER SYMPTOMS: Arthralgias. Feet pain more recently. Inhaler regimen includes: Advair 500-50 mcg BID, prn albuterol HFA Oxygen Use: None PAP therapy: None Other relevant medications: Xarelto for AF, azathioprine 150 mg daily, Prednisone 5 mg rossy y for RA. SOCIAL HISTORY He is a past smoker, about 30 pack years, stopped in 1995. 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 He was in the , [place], for 4 years and reportedly exposed to A gent [place]. He has no animals at home. The following portions of the patient's history were reviewed and updated as appropriate an d is available elsewhere in the record: allergies, current medications, past family history, past medical history, past social history, past surgical history and problem list. Review of Systems Constitutional: Positive for fatigue and fever. Negative for activity change, appetite rubio ge, chills, diaphoresis and unexpected weight change. HENT: Positive for nosebleeds and postnasal drip. Negative for congestion, rhinorrhea and s ore throat. Eyes: Negative for visual disturbance. Respiratory: Positive for apnea, cough and shortness of breath. Negative for choking, chest tightness, wheezing and stridor. Cardiovascular: Positive for leg swelling. Negative for chest pain and palpitations. Gastrointestinal: Negative for constipation, diarrhea and nausea. Genitourinary: Negative for dysuria and frequency. Musculoskeletal: Positive for arthralgias and joint swelling. Negative for myalgias and nec k pain. Skin: Negative for rash. Neurological: Negative for dizziness, weakness and light-headedness. Hematological: Negative for adenopathy. Psychiatric/Behavioral: Positive for sleep disturbance. Active Ambulatory Problems Diagnosis Date Noted Aortic aneurysm (HCC) 10/07/2017 Coronary artery disease of bypass graft of choctaw heart with stable angina pectoris (HC C) 10/07/2017 Chronic atrial fibrillation (HCC) 10/07/2017 Cancer of vocal cord (HCC) 10/07/2017 Essential hypertension 10/07/2017 Multifocal lung consolidation (HCC) 10/23/2017 Chronic bronchitis (HCC) 10/23/2017 Chronic maxillary sinusitis 10/23/2017 Obstructive sleep apnea 10/23/2017 Peptic ulcer disease 10/23/2017 Moderate protein-calorie malnutrition (HCC) 10/24/2017 Severe protein-calorie malnutrition (HCC) 10/24/2017 Dysphagia 10/24/2017 COPD, moderate (HCC) 11/28/2017 Personal history of tobacco use, presenting hazards to health 11/28/2017 Rheumatoid arthritis (HCC) 11/28/2017 Stable angina (HCC) 12/04/2017 Resolved Ambulatory Problems Diagnosis Date Noted Precordial pain 10/23/2017 Hemoptysis 10/23/2017 NSTEMI (non-ST elevated myocardial infarction) (HCC) 10/23/2017 Aspiration pneumonia (HCC) 10/24/2017 Past Medical History: Diagnosis Date Atrial fibrillation (HCC) Cancer (HCC) 1997 Coronary artery disease Hemorrhage of gastrointestinal tract, unspecified Hyperlipidemia Hypertension Joint pain Old myocardial infarction Other chronic pain Sleep apnea Past Surgical History Procedure Laterality Date ABDOMINAL SURGERY 1998 geovanna fundoplasty CARDIAC CATHETERIZATION carpoltunnel Bilateral 2012 COLONOSCOPY heart bypass 1986 HERNIA REPAIR 2006 left ear surgery BCC removed from left ear MAXILLARY ANTROSTOMY Bilateral 11/04/2014 Procedure: MAXILLARY ANTROSTOMY; Surgeon: Adal Corrales DO; Location: [facility] OR; Ser vice: ENT; Laterality: Bilateral; SINUS SURGERY N/A 11/04/2014 Procedure: ENDOSCOPIC SINUS SURGERY; Surgeon: Adal Corrales DO; Location: [facility]; Service: ENT; Laterality: N/A; Functional & left frontal THROAT SURGERY pt had vocal cord Sx due to cancer Objective Objective: Physical Exam BP 127/60 | Pulse (!) 49 | Temp 36.3 C (97.4 F) (Oral) | Wt 71.7 kg (158 lb) | SpO2 98% | BMI 24.75 kg/m Vital signs reviewed. Oxygen saturation noted at 98% on ambient air GENERAL: pleasant, cooperative, oriented, not in distress HEENT: pink conjunctiva, injected L sclerae, anicteric sclerae, moist oral mucosae and with out any lesions, normal appearing nasal mucosae; no JVD; MALAMPATTI 4; no thyromegaly; no ce rvicolymphadenopathies; surgical scars present on neck, with old trach scar; hoarse voice. CVS: PMI laterally displaced, IRRR, S1 and S2, no murmurs/gallops/rubs CHEST: Examination of the chest showed a mild kyphosis. LUNGS: Normal effort, Equal in expansion, resonant to percussion, clear breath sounds today but with prolonged expiratory phase ABDOMEN: Slightly protuberant abdomen, NABS, non-tender on palpation, no masses palpated EXTREMITIES: good distal pulses, no cyanosis, no clubbing, no nail abnormalities, trace ed will NEURO: awake and oriented, gait normal, no focal neurologic deficits LABORATORY AND IMAGING Pulmonary Function Test: 05/2017 FEV1 2.05 (70%) FVC 3.32 (86%) FEV1/FVC 62 TLC 3.19 (82%) RV/TLC 39 DLCO 11.4 (81%) CT of the chest done on 10/24/17 reviewed Impression 1. At the very least there is pulmonary vascular congestion, edema-and centrilobular emphys will is superimposed 2. Pulmonary infiltrates are asymmetric and throughout the left hemithorax. This could be d ue to superimposed infection of the left upper lung and there is a small effusion also 3. Lastly, there are inflammatory appearing airspace or infiltrative nodules superimposed t hroughout Will be important to repeat this examination when the patient's acute issues are resolved t o evaluate for underlying lesion/mass Echo done on 10/24/17 reviewed Impression 1. The left ventricle cavity is normal in size, mild concentric hypertrophy and normal sy stolic function EF 55%. Mild inferior and inferolateral hypokinetic segments. 2. Mild degenerative changes in the aortic and mitral valves. 3. There is no pericardial effusion. L heart cath on 10/24/17 reviewed CONCLUSION: 1. Severe 3-vessel coronary artery disease. 2. Patent SVG to RCA and GRIER to LAD. 3. Occluded SVG to the left circumflex system, which is a jump graft. 4. Severely calcified left circumflex, which is small caliber severely calcified. However, not amenable to any PCI. RECOMMENDATIONS: Given the above findings, the patient will continue medical therapy for coronary artery disease. Will be restarted on antiplatelet therapy and will be on optimization of blood pressure control, statin therapy, and will be re-started on anticoagulation for atrial fibrillation. Further recommendations to follow. CT of the chest done on 12/11/17 reviewed Impression 1. Scattered residual nodularity of the lungs. There is tree in bud opacity of the left l corinne base which may represent inflammatory process. The largest nodule of the right middle lo be measuring 0.6 x 0.4 cm. Follow-up CT scan could be obtained in 3-6 months. 2. There is significant improvement of the consolidation from the prior exam dated October 24, 2017 particularly at the left upper lobe and right lung. Assessment/Plan Assessment and Plan: 1. COPD, moderate (HCC) Mr Rose has moderate obstruction on PFT along with reduced DLCO. He does not have any restr iction. His disease is characterized primarily by chronic bronchitis with some dyspnea. He h as been maintained on Advair 500-50 mcg BID and prn albuterol. I have requested for a repeat PFT this year as part of surveillance of his lung function. Anne martinez has agreed to do this in [facility]. - Pulmonary function test; Future 2. Multifocal lung consolidation (HCC) This is from aspiration. Will repeat CT this year to document full resolution. He also has multiple pulm Nodules noted on previous CT, largest is at 6 mm in size. Continue with yearl y CT lung surveillance. - CT Chest wo Contrast; Future 3. Aspiration pneumonia, unspecified aspiration pneumonia type, unspecified laterality, uns pecified part of lung (HCC) He has had increasing episodes of coughing while eating. This may indicate recurrence of as piration. Advised that he talks to his PCP regarding this so that he can be sent to swallow/ speech evaluation once again. 4. Rheumatoid arthritis, involving unspecified site, unspecified rheumatoid factor presence (HCC) He is immunocompromised given chronic steroid txt and azathioprine. Continue watching out f or infection. At the same time, he is at risk for pulmonary and pleural complications of RA, along with adverse effects of medications. Continue being vigilant about this. 5. Personal history of tobacco use, presenting hazards to health He stopped in 1995 and has had vocal cord cancer. 6. Cancer of vocal cord (HCC) This is in remission. He sees a team in [facility]. Thank you for allowing us to participate in this patient's care. A return visit has been re quested/scheduled in 4 months for close clinical follow up. The patient was instructed to ca ll our clinic for any questions, and for any concerns regarding worsening dyspnea, cough or change in sputum production. We will see the patient sooner than the recommended follow up d ate, if with any worsening of symptoms. Mary Rodrigez MD Pulmonary and Critical Care Medicine [facility] [address] , [place] [place] [address] documente d in this encounter Plan of Treatment +--------+---------+ [...] | | | | | | [place] [address] | | | | | | [phone] | | | | | | | | +--------+---------+ + + + | 05/19/ | Office | Cardiology | Cristian Mccoy, | | | 2019 | Visit | | [address] | | | | | | [place] | | | | | | [address] | | | | | | | | +--------+---------+ + + + documented as of this encounter Results Pulmonary function test full PFT (11/20/2018 2:04 PM PDT) + + + | Narrative | Performed At | + + + | Mary Rodrigez MD 11/20/2018 14:07 PULMONARY | | | FUNCTION TEST NAME: German Rose : 1945 MRN: | | | [id number] REASON FOR TESTING: COPD FINDINGS | | [...] Rodrigez MD Pulmonary and Critical Care Medicine [facility] | | | [facility] [address] , [address] | | | [place] [address] | | + + + CT Chest wo Contrast (11/20/2018 12:28 PM [...] details. | | | Signed by: Priyanka Moon, Joseph Sign Date/Time: 11/20/2018 12:54 PM | | [...] | + + | COPD, moderate (HCC) - Primary Chronic airway obstruction, not elsewhere classified | + + | Multifocal lung consolidation (HCC) Pneumococcal pneumonia (streptococcus pneumoniae | | pneumonia) | + + | Aspiration pneumonia, unspecified aspiration pneumonia type, unspecified laterality, | | unspecified part of lung (HCC) | + + | Rheumatoid arthritis, involving unspecified site, unspecified rheumatoid factor | | presence (HCC) | + + | Personal history of tobacco use, presenting hazards to health | + + | 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"
--- OUTSIDE RECORDS SUMMARY | ~2019-02-20 | XMS | Encounter Summary ---
Demographics + + + | Address | [address] | | | [place] [address] | + + + | Home Phone [...] Team Providers + +------+ + | Care Gut Dropper Name | Role | Phone | + [...] as of this encounter Progress Notes Interface, Shim Plug Cutter In - 03/25/2006 3:15 AM PSTCLINIC DATE: [...] HISTORY: The patient is and lives in [place], [place]. He has three children with one still living at home. 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 He has a history of smoking, approximately [...] Head and Neck Surgery Dylan Arthur M.D. Grit Removal Operator, Otolaryngology Head and Neck Surgery CY/rel C: 01/28/98 ds P STIntwilliam, Shim Plug Cutter In - 03/25/2006 3:15 AM [facility] DATE: 01/21/1998 OTOLARYNGOLOGY CLINIC: SUBJECTIVE: Mr. Rose is seen in consultation from Dr. Moisés Quezada. I first saw this patient with my senior resident, Dr. Cami Webstre and the details of my interaction with [...] back in three weeks. Dylan Arthur M.D. Grit Removal Operator, Otolaryngology Head and Neck Surgery KRIS/josette d ocumented in this encounter Plan of Treatment Not on filedocumented as of this encounter Visit Diagnoses Not on filedocumented in this encounter"
--- OUTSIDE RECORDS SUMMARY | ~2019-02-20 | XMS | Encounter Summary ---
Demographics + + + | Address | [address] | | | [place] [address] | + + + | Home Phone [...] [place] | | | | | [address] | | + + + + + Care Team Providers + +------+ + | Care Open Hearth Worker Name | Role | Phone | + +------+ + | Maycol Knutson MD | PCP | | + +------+ + Encounter Details +--------+ + + + + | Date | Type | Department | Care Team | Description | +--------+ + + + + | 07/04/ | Hospital | [facility] | Conversion | Diagnosis unknown | | 2018 | Encounter | CONVERSION [address] | Transaction, | | | | | [address] | Provider Unknown | | | | | [place], [place] | | | | | | [address] | (Fax) | | | | | [phone] | | | +--------+ + + + [...] | | | | | [address] | | | | | | [place], | | | | | | [place] [address] | | | | | | [phone] | | | | | | | | +--------+---------+ + + + | 05/19/ | Office | Cardiology | NadineCristian, | | | 2020 | Visit | | [address] | | | | | | [place] | | | | | | [address] | | | | | | | | +--------+---------+ + + + documented as of this encounter Procedures + +--------+ + + + | Procedure Name | Priori | Date/Time | Associated Diagnosis | Comments | | | ty | | | | + +--------+ + + + | CT ANGIOGRAM ABDOMEN | Routin | 11/22/2015 | | Results for this | | W CONTRAST | e | 8:26 PM | | procedure are in the | | | | PDT | | results section. | + +--------+ + + + documented in this encounter Results CT Angiogram Abdomen w Contrast (11/22/2015 8:26 PM PDT) + + | Specimen | [...] + | Diagnosis | + + | Diagnosis unknown Other unknown and unspecified cause of morbidity or mortality | + + documented in this encounter"
--- OUTSIDE RECORDS SUMMARY | ~2019-02-20 | XMS | Clinical Summary ---
Demographics + + + | Address | [address] | | | [place] [address] | + + + | Home Phone [...] Team Providers + +------+ + | Care Certified Medical Transcriptionist Name | Role | Phone | + +------+ + | Maycol Knutson MD | PCP | | + +------+ + Source Comments ARI[place] is fully live on both [facility] and [facility] Allergies No Known Allergies Medications + + [...] MEDICARE | MEDICA | xxxxxxxxxx | | [phone] | [address] | [address] | | | RE A & | | [address] | [address] | | | [address] | | esent | | [place], [place] | | | | | | | | [address] | | + +--------+ +--------+ + +--------+ [...] [place] | | | 5 (Home) | [address] | + +--------+ +--------+ + + Advance Directives + + + + + | Type | Date Recorded | Patient | Explanation | | | | Manager Balance | | + + + + + | Advance | | | | | Directives and | | | | | Living Will | | | | + + + + + | Power of | | | | | Publisher Assistant | | | | + + + + +
--- OUTSIDE RECORDS SUMMARY | ~2019-02-20 | XMS | Encounter Summary ---
Demographics + + + | Address | [address] | | | [place] [address] | + + + | Home Phone | | + + + | Preferred Language | Unknown | + + + | Marital Status | | + + + | Synagogue Affiliation | LUT | + + + | Race | White | + + + | Ethnic Group | Not or | + + + Author + + + | Author | [facility] | + + + | Organization | [facility] | + + + | Address | Unknown | + + + | Phone | Unavailable | + + + Support + + +---------+ + | Name | Relationship | Address | Phone | + + +---------+ + | Blossom Rose | ECON | Unknown | | + + +---------+ + Care Team Providers + +------+ + | Care Flumer Name | Role | Phone | + [...] as of this encounter Progress Notes Interface, Shank Piece Tacker In - 11/30/2005 6:11 AM PDTCLINIC DATE: [...] and it is normal. Dylan Arthur M.D. [facility] / [id number] / [id number] / [id number] / cc: Moisés Quezada M.D. [address] [place], [place] [address] Maycol Knutson M.D. [address] [facility] [facility] [place] [address] [id number] signed by Interface, Shank Piece Tacker In at 11/30/2005 6:11 AM PDTdoc umented in this encounter Plan of Treatment Not on filedocumented as of this encounter Visit Diagnoses Not on filedocumented in this encounter"
--- OUTSIDE RECORDS SUMMARY | ~2019-02-20 | XMS | Encounter Summary ---
Demographics + + + | Address | [address] | | | [place] [address] | + + + | Home Phone | | + + + | Preferred Language | Unknown | + + + | Marital Status | | + + + | Judaism Affiliation | 1028 | + + + [...] [place] | | | | | [address] | | + + + + + Care Team Providers + +------+ + | Care Automotive Product Specialist Name | Role | Phone | [...] + + | 10/12/ | [facility] | [facility] | Sharan Bruno | NOLA (obstructive | | 2015 | Visit | SLEEP DISORDER [address] | MD [address] | sleep apnea) | | | | [address] | [address] [place] | (Primary Dx); | | | | [place] [address] | [place] [address] | Central sleep apnea | | | | [phone] | [phone] | due to Victoriano-Tomas | | | [...] seen by ENT Dr. Corrales in the [facility] for his nasal/sinus issues. He will see [...] | SpO2 98% A: Complex Sleep Apnea (NOLA+CSA-JAVA INTEGRATION DEVELOPER): The AHI is 0 when he wears [...] | | | | | | [place] [address] | | | | | | [phone] | | | | | | | | +--------+---------+ + + + | 05/19/ | Office | Cardiology | Cristian Mccoy, | | | 2019 | Visit | | [address] | | | | | | [place] | | | | | | [address] | | | | | | | [...]
--- OUTSIDE RECORDS SUMMARY | ~2019-02-20 | XMS | Encounter Summary ---
Demographics + + + | Address | [address] | | | [place] [address] | + + + | Home Phone [...] Team Providers + +------+ + | Care Turbo Generator Oiler Name | Role | Phone | + [...]
--- OUTSIDE RECORDS SUMMARY | ~2019-02-20 | XMS | Encounter Summary ---
Demographics + + + | Address | [address] | | | [place] [address] | + + + | Home Phone [...] Team Providers + +------+ + | Care E Commerce Architect Name | Role | Phone | [...] of this encounter Progress Notes Interface, Digital Camera Technician In - 11/06/2005 3:07 AM PDTCLINIC [...] in approximately 6 months. Dylan Arthur M.D. [facility] / [id number] / [id number] / [id number] / [id number] cc: Maycol Jalloh M.D. [address] [place] [address] Moisés Quezada M.D. [address] [facility] [place], [place] [id number] signed by Interface, Digital Camera Technician In at 11/06/2005 3:0 7 AM PDTdocumented in this encounter Plan of Treatment Not on filedocumented as of this encounter Visit Diagnoses Not on filedocumented in this encounter"
--- OUTSIDE RECORDS SUMMARY | ~2019-02-20 | XMS | Encounter Summary ---
Demographics + + + | Address | [address] | | | [place] [address] | + + + | Home Phone | | + + + | Preferred Language | Unknown | + + + | Marital Status | | + + + | Baptist Affiliation | 1028 | + + + | Race | Unknown | + + + | Ethnic Group | Unknown | + + + Author + + + | Author | [facility] | | | and [place] | + + + | Organization | [facility] | | [...] [place] | | | | | [address] | | + + + + + Care Team Providers + +------+ + | Care Domestic Laundry Worker Name | Role | Phone | + +------+ + PCP | Unavailable | + +------+ + Encounter Details +--------+ + + + + | Date | Type | Department | Care Team | Description | +--------+ + + + + | 04/20/ | Hospital | [facility] | | | | 1998 - | Encounter | MED CTR CANCER | | | | | | ÁNGEL Murillo | | | | 02/25/ | | [place] | | | | 1998 | | [address] | | | | | | [phone] | | | +--------+ + + + [...] | | | | | | [place], | | | | | | [place] [address] | | | | | | [phone] | | | | | | | | +--------+---------+ + + + | 05/19/ | Office | Cardiology | Cristian Mccoy, | | | 2020 | Visit | | MD Alayna SHEPPARD | | | | | | [place] | | | | | | [phone] | | | | | | | | +--------+---------+ + + + documented as of this encounter Visit Diagnoses Not on filedocumented in this encounter"
--- OUTSIDE RECORDS SUMMARY | ~2019-02-20 | XMS | Encounter Summary ---
Demographics + + + | Address | [address] | | | [place] [address] | + + + | Home Phone [...] [place] | | | | | [address] | | + + + + + Care Team Providers + +------+ + | Care Plate Maker Zinc Name | Role | Phone | + +------+ + | Maycol Knutson MD | PCP | | + +------+ + Encounter Details +--------+ + + + + | Date | Type | Department | Care Team | Description | +--------+ + + + + | 10/07/ | Orders Only | [facility] | Provider, | | | 2019 | | SYSTEM GENERIC OP | MD [address] | | | | | [address] | [place]onica [place] | | | | | [address] [place], [place] | [place] [address] | | | | | [address] | | | | | | [phone] | | | +--------+ + + + [...] | | | | | | [place] [address] | | | | | | [phone] | | | | | | | | +--------+---------+ + + + | 05/19/ | Office | Cardiology | Cristian Mccoy, | | | 2020 | Visit | | MD Alayna SHEPPARD | | | | | | [place] | | | | | | [address] | | | | | | | | +--------+---------+ + + + documented as of this encounter Visit Diagnoses Not on filedocumented in this encounter"
--- OUTSIDE RECORDS SUMMARY | ~2019-02-20 | XMS | Clinical Summary ---
Demographics + + + | Address | [address] | | | [place] [address] | + + + | Home Phone | | + + + | Preferred Language | Unknown | + + + | Marital Status | | + + + | Taoism Affiliation | 1028 | + + + | Race | Unknown | + + + | Ethnic Group | Unknown | + + + Author + + + | Author | [facility] | | | and [place] | + + + | Organization | [facility] | [...] [place] | | | | | [address] | | + + + + + Care Team Providers + +------+ + | Care Electronics Instructor Name | Role | Phone | [...] (See Comments) | Medium | 09/14/19 | ORTHOPEDIC PHYSICAL THERAPIST | | | | | 15 | [...] 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 | | | stable angina [...] +---+ | Central sleep apnea due to Victoraino-Tomas respiration | | + +---+ Resolved Problems [...] | | | | | | [place] [address] | | | | | | [phone] | | | | | | | | +--------+---------+ + + + | 05/19/ | Office | Cardiology | Cristian Mccoy, | | | 2019 | Visit | | [address] | | | | | | [place] | | | | | | [address] | | | | | | | [...] +--------+ +---------+--------+ | MEDICARE | MEDICA | [id number] | | [phone] | | Medica | | | RE | | 009-Pr | 5 | | re | | | PART A | | esent | | | | | | AND B | | | | | | + +--------+ +--------+ +---------+--------+ | MEDICARE | MEDICA | [id number] | | [phone] | | Medica | | | RE | | 009-Pr | 5 | | re | | | PART A | | esent | | | | | | AND B | | | | | | + +--------+ +--------+ +---------+--------+ | AARP | AARP | [id number] | 06/17/19 | [phone] | | Indemn | | | MDCR | | 12-Pre | 0 | | ity | | | SUPPL | | sent | | | | + +--------+ +--------+ +---------+--------+ | AARP | AARP | [id number] | 03/18/19 | [phone] | | Indemn [...] | | al/Fam | | 1945 | [phone] | [place], [place] | | | irish | | | 5 (Home) | [address] | + +--------+ +--------+ + + | German Rose | Person | Self [birth year] | [address] | | | al/Fam | | 1945 | [phone] | [place], [place] | | | [place] | | | 5 (Home) | [address] | + +--------+ +--------+ + + Advance Directives + + + + + | Type | Date Recorded | Patient | Explanation | | | | Cashier Self Service Gasoline | | + + + + + | Power of | | | | | Hardware Engineering Manager | | | | + + + + + | Advance | 08/12/2014 8:35 | | | | Directive | AM | | | + + + + +
--- OUTSIDE RECORDS SUMMARY | ~2019-02-20 | XMS | Encounter Summary ---
Demographics + + + | Address | [address] | | | [place] [address] | + + + | Home Phone [...] [place] | | | | | [address] | | + + + + + Care Team Providers + +------+ + | Care Manager Corporate Name | Role | Phone | + +------+ + | Maycol Knutson MD | PCP | | + +------+ + Encounter Details +--------+ + + + + | Date | Type | Department | Care Team | Description | +--------+ + + + + | 07/30/ | Orders Only | [facility] | Carlos Garland MD | Back pain (Primary | | 2014 | | NEUROSURGERY [address] | [address] | Dx) | | | | [address] | [place] [address] | | | | | [place] | [phone] | | | | | [address] | | | | | | [phone] | | | +--------+ + + + [...] | | | | | | [place] [address] | | | | | | [phone] | | | | | | | | +--------+---------+ + + + | 05/19/ | Office | Cardiology | Cristian Mccoy, | | | 2019 | Visit | | [address] | | | | | | [place] [facility] [place] | | | | | | [address] | | | | | | | | +--------+---------+ + + + + +---------+--------+ + + | Name | Type | Priori | Associated Diagnoses | Order Schedule | | | | ty | | | + +---------+--------+ + + | XR Lumbar Spine 4 + | Imaging | Routin | Back pain | Expected: 08/09/2013 | | Vw | | e | | (Approximate), | | | | | | Expires: 07/29/2014 | + +---------+--------+ + + documented as of this encounter Visit Diagnoses + + | Diagnosis | + + | Back pain - Primary Backache, unspecified | + + documented in this encounter"
--- OUTSIDE RECORDS SUMMARY | ~2019-02-20 | XMS | Encounter Summary ---
Demographics + + + | Address | [address] | | | [place] [address] | + + + | Home Phone | | + + + | Preferred Language | Unknown | + + + | Marital Status | | + + + | Adventist Affiliation | 1028 | + + + | Race | Unknown | + + + | Ethnic Group | Unknown | + + + Author + + + | Author | [facility] | | | and [place] | + + + | Organization | [facility] | | | [...] [place] | | | | | [address] | | + + + + + Care Team Providers + +------+ + | Care Subway Repair Supervisor Name | Role | Phone | + +------+ + | Maycol Knutson MD | PCP | | + +------+ + Encounter Details +--------+ + + + + | Date | Type | Department | Care Team | Description | +--------+ + + + + | 12/22/ | Hospital | [facility] | Sharan Bruno | | | 2012 | Encounter | MED CTR SLEEP | MD Claritza [address] | | | | | [place] [address] | [address] [facility] | | | | | [place], [place] | [place] [address] | | | | | [address] | [phone] | | | | | [phone] | | | +--------+ + + + [...] | | | | | | [place] [address] | | | | | | [phone] | | | | | | | | +--------+---------+ + + + | 05/19/ | Office | Cardiology | Cristian Mccoy, | | | 2019 | Visit | | MD [address]ayna [address] | | | | | | [place] | | | | | | [address] | | | | | | | | +--------+---------+ + + + documented as of this encounter Procedures + +--------+ + + + | Procedure Name | Priori | Date/Time | Associated Diagnosis | Comments | | | ty | | | | + +--------+ + + + | DIAGNOSTIC REPORT - | | 12/22/2012 | | | | EXTERNAL SCAN | | 12:00 AM | | | | | | PDT | | | + +--------+ + + + documented in this encounter Visit Diagnoses Not on filedocumented in this encounter"
--- OUTSIDE RECORDS SUMMARY | ~2019-02-20 | XMS | Encounter Summary ---
Demographics + + + | Address | [address] | | | [place] [address] | + + + | Home Phone [...] Team Providers + +------+ + | Care Mixed Signal Design Engineer Name | Role | Phone | [...] W | | | | ON | [facility] 4th Floor [address] | [facility] | | | | | [address] | Road [place], [place] | | | | | Mailcode: [facility] | [address] | | | | | [facility] | | | | | | and Healing, | | | | | | Building 1,4th Floor | | | | | | [facility] [place] | | | | | | [address] | | | | | | [phone] | | | +--------+ + + + [...]
--- OUTSIDE RECORDS SUMMARY | ~2019-02-20 | XMS | Encounter Summary ---
Demographics + + + | Address | [address] | | | [place] [address] | + + + | Home Phone | | + + + | Preferred Language | Unknown | + + + | Marital Status | | + + + | Spiritism Affiliation | LUT | + + + | Race | White | + + + | Ethnic Group | Not or | + + + Author + + + | Author | [facility] | + + + | Organization | [facility] | + + + | Address | Unknown | + + + | Phone | Unavailable | + + + Support + + +---------+ + | Name | Relationship | Address | Phone | + + +---------+ + | Blossom Rose | ECON | Unknown | | + + +---------+ + Care Team Providers + +------+ + | Care Gas Brazer Name | Role | Phone | + [...] as of this encounter Progress Notes Interface, Safety Specialist In - 02/13/2006 1:10 AM [facility] DATE: 04/27/1999 OTOLARYNGOLOGY CLINIC SUBJECTIVE: The patient [...] and advance diet as indicated. Anel Haddad, [facility]PRES[facility] EDUCATION DIRECTOR Dylan Arthur M.D. Speech Language Pathologist CRISTIN / [place] [id number] / [id number] / [id number] / [id number] Tdocumented in this encounter Plan of Treatment Not on filedocumented as of this encounter Visit Diagnoses Not on filedocumented in this encounter"
--- OUTSIDE RECORDS SUMMARY | ~2019-02-20 | XMS | Encounter Summary ---
Demographics + + + | Address | [address] | | | [place] [address] | + + + | Home Phone | | + + + | Preferred Language | Unknown | + + + | Marital Status | | + + + | Confucianist Affiliation | 1028 | + + + | Race | Unknown | + + + | Ethnic Group | Unknown | + + + Author + + + | Author | [facility] | | | and [place] | + + + | Organization | [facility] | | [...] [place] | | | | | [address] | | + + + + + Care Team Providers + +------+ + | Care Senior Business Consultant Name | Role | Phone | [...] + | 03/17/ | Office | [facility] | Aleksandar Tejeda PA | NOLA on CPAP (Primary | | 2012 | Visit | SLEEP DISORDER [address] | [address] | Dx); Victoriano-Wallace | | | | [address] | [place] | respiration | | | | [place] [address] | [address] | | | | | [phone] | | | +--------+---------+ + + + [...] type: Respironics ASV BiPAP with nasal mask (Cayr) obtained from: [facility] pressure: EPAP = 4cm;PSmin=0cm;PSmax=25cm;backup rate=auto Nights [...] month, sooner prn. Fifteen minutes were spent [id number], wi th the majority of time spent [...] | | | | | | [place] [address] | | | | | | [phone] | | | | | | | | +--------+---------+ + + + | 05/19/ | Office | Cardiology | Nadine Cristian, | | | 2019 | Visit | | [address] | | | | | | [place] | | | | | | [address] | | | | | | | | +--------+---------+ + + + documented as of this encounter Visit Diagnoses + + | Diagnosis | + + | NOLA on CPAP - Primary Obstructive sleep apnea (adult) (pediatric) | + + | Victoriano-Wallace respiration | + + documented in this encounter"
--- OUTSIDE RECORDS SUMMARY | ~2019-02-20 | XMS | Encounter Summary ---
Demographics + + + | Address | [address] | | | [place] [address] | + + + | Home Phone | | + + + | Preferred Language | Unknown | + + + | Marital Status | | + + + | Mormon Affiliation | LUT | + + + [...] Team Providers + +------+ + | Care Irrigationist Name | Role | Phone | + [...] Dx) | | | | [facility] [address] [facility] | | | | | | [address] | | | | | | Mailcode: [address] | | | | | | [place] | | | | | | [place], [place] | | | | | | [address] | | | | | | [phone] | | | +--------+---------+ + + + [...] | + + +--------+ + + | MD LARYNGOSCOPY,FLEX | Procedures | Routin | Malignant [...]
--- OUTSIDE RECORDS SUMMARY | ~2019-02-20 | XMS | Encounter Summary ---
Demographics + + + | Address | [address] | | | [place] [address] | + + + | Home Phone | | + + + | Preferred Language | Unknown | + + + | Marital Status | | + + + | Baptism Affiliation | 1028 | + + + | Race | Unknown | + + + | Ethnic Group | Unknown | + + + Author + + + | Author | [facility] | | | and [place] | + + + | Organization | [facility] | | | and [...] [place] | | | | | [address] | | + + + + + Care Team Providers + +------+ + | Care Specialty Foods Cook Name | Role | Phone | + +------+ + | Mayocl Knutson MD | PCP | | + [...] | | [address] | [place] [address] | | | | | [place] | [phone] | | | | | [address] | | | | | | [phone] | | | +--------+ + + + [...] | | | | | | [place] [address] | | | | | | [phone] | | | | | | | | +--------+---------+ + + + | 05/19/ | Office | Cardiology | Cristian Mccoy, | | | 2019 | Visit | | MD [address] | | | | | | [place] | | | | | | [address] | | | | | | | | +--------+---------+ + + + documented as of this encounter Visit Diagnoses Not on filedocumented in this encounter"
--- OUTSIDE RECORDS SUMMARY | ~2019-02-20 | XMS | Encounter Summary ---
Demographics + + + | Address | [address] | | | [place] [address] | + + + | Home Phone [...] Providers + +------+ + | Care Recreation Coordinator Name | Role | Phone | + +------+ + | Maycol Knutson MD | PCP | | + +------+ + Encounter Details +--------+ + + + + | Date | Type | Department | Care Team | Description | +--------+ + + + + | 04/29/ | Discharge | | Summary, Discharge | D/C Summary ODDS | | 2000 | Summary-Tra | | | | | [...] as of this encounter Discharge Summaries Interface, Leather Leveler In - 02/13/2006 1:10 AM [facility] ON [address] [address] [facility] MEDICAL SUMMARY OF HOSPITALIZATION Med Rec No: [id number] Admission Date: 04/26/1999 Name: German Rose Discharge Date: 04/29/1999 ATTENDING PHYSICIAN: Dylan Arthur M.D. PRINCIPAL FINAL DIAGNOSIS: Recurrent subglottic stenosis. ADDITIONAL DIAGNOSES: 1) Hypertension. 2) Arthritis. 3) Nephrolithiasis. 4) Hyperlipemia. 5) Coronary artery disease status post coronary artery bypass graft in December 1995. 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 PRINCIPAL PROCEDURE: Laryngeal tracheoplasty with rib graft. ADDITIONAL PROCEDURES: 1) Speech therapy. 2) Nutrition consult. 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 It was performed without complication initially, however, subsequently postoperatively, he developed recurrent laryngeal stenosis with repeated dilations that had been unsuccessful. After his most recent visit on February 02, 1999, fiberoptic laryngoscopy was performed and showed a significant change of the subglottic stenosis, which continued to remain about 50 to 60 percent of his airway. He has currently failed multiple dilations and is currently indicated for tracheostomy tube as well as laryngeal tracheoplasty with rib graft. PAST MEDICAL HISTORY: As above. PAST SURGICAL HISTORY: 1) Laparoscopic Sudarshan fundoplication September 1998. 2) Right hemilaryngectomy in February 1998. MEDICATIONS ON ADMISSION: 1) Norvasc, 10 mg po qd. 2) Aspirin, 1 tablet po qd. 3) Lipitor, 10 mg po qd. ALLERGIES: ALLERGIC TO BETA-BLOCKERS. PHYSICAL EXAMINATION: GENERAL: Alert and oriented, in no acute distress. CARDIOVASCULAR: Regular rate and rhythm. LUNGS: Clear to auscultation bilaterally. ABDOMEN: Soft, non-tender, and non-distended. OROPHARYNX: Clear. Pupils were equal, round and reactive to light and accommodation. Extraocular movements were intact. No palpable masses. ASSESSMENT: This is a 54-year-old gentleman with recurrent stenoses, currently indicated for laryngeal tracheoplasty with rib graft. HOSPITAL COURSE: The patient was admitted on April 26, 1999 and taken to the operating room for laryngeal tracheoplasty with rib graft, which was performed without complication. The patient was transferred to the Post Anesthesia Care Unit in stable condition, and subsequently transferred to the general ENT peng on 9C. Speech pathology was consulted initially and evaluated his swallowing. He was started on pureed foods and liquids, postoperatively. He was doing well. He had minimal pain. Nutrition was also evaluated him to help regulate his caloric intake. The recommendations included milkshakes on his trays. By postoperative day #2, it was noted that his trach tube was slightly low and not setting quite properly and a small two centimeter incision was made at the bedside to open up the trach site and allow it to freely move into a more comfortable position for the patient. After this was performed, the patient had a small amount of bleeding that was packed and pressure was held. Hemostasis was subsequently achieved. The patient felt able and ready to be discharged on postoperative day #3, which was done. There were no complications in his hospital course. DISCHARGE INSTRUCTIONS: DISCHARGE MEDICATIONS: 1) Augmentin, 875 mg po t.i.d. for four weeks. 2) Vicodin, 1 to 2 tabs po 4 hours prn pain. DIET: None dictated. ACTIVITY: None dictated. FOLLOW UP CARE: He is to follow-up in the ENT clinic in three to four weeks with Priyanka Guadarrama M.D. Dylan Arthur M.D. DT:[id number] C: 05/06/1999 jrg documented in this encounter Plan of Treatment Not on filedocumented as of this encounter Visit Diagnoses Not on filedocumented in this encounter"
--- OUTSIDE RECORDS SUMMARY | ~2019-02-20 | XMS | Encounter Summary ---
Demographics + + + | Address | [address] | | | [place] [address] | + + + | Home Phone [...] [place] | | | | | [address] | | + + + + + Care Team Providers + +------+ + | Care Speedometer Mechanic Name | Role | Phone | + +------+ + | Maycol Knutson MD | PCP | | + +------+ + Encounter Details +--------+ + + + + | Date | Type | Department | Care Team | Description | +--------+ + + + + | 10/22/ | Hospital | [facility] | Conversion | | | 2015 | Encounter | CENTER [facility] | Transaction, | | | | | CLINIC [address] | Provider Unknown | | | | | [place], [place] | | | | | | [address] | (Fax) | | | | | [phone] | | | +--------+ + + + [...] | | | | | | [place] [address] | | | | | | [phone] | | | | | | | | +--------+---------+ + + + | 05/19/ | Office | Cardiology | Cristian Mccoy, | | | 2020 | Visit | | MD [address] | | | | | | [place] | | | | | | [address] | | | | | | | [...] EXTERNAL | | | | performed at [facility], [address] | K/uL | LAB | | | | [address], | | | | | | [place] [address] | | | | + + + + + + | RED CELL | 4.02 (L)Comment: Testing | 4.20 - 5.70 | EXTERNAL | | | COUNT | performed at [facility], [address] | M/uL | LAB | | | | [address], | | | | | | [place] [address] | | | | + + + + + + | Hgb | 12.2 (L)Comment: Testing | 13.2 - 17.0 | EXTERNAL | | | | performed at [facility], [address] | g/dL | LAB | | | | [address], | | | | | | [place] [address] | | | | + + + + + + | Hematocrit, | 36.8 (L)Comment: Testing | 39.0 - 50.0 % | EXTERNAL | | | POC | performed at [facility], [address] | | LAB | | | | [address], | | | | | | [place] [address] | | | | + + + + + + | MCV | 91.7Comment: Testing | 80.0 - 100.0 fl | EXTERNAL | | | | performed at [facility], [address] | | LAB | | | | [address], | | | | | | [place] [address] | | | | + + + + + + | MCH | 30.4Comment: Testing | 27.0 - 34.0 pg | EXTERNAL | | | | performed at [facility], [address] | | LAB | | | | [address], | | | | | | [place] [address] | | | | + + + + + + | MCHC | 33.2Comment: Testing | 32.0 - 35.5 | EXTERNAL | | | | performed at [facility], [address] | g/dL | LAB | | | | [address], | | | | | | [place] [address] | | | | + + + + + + | RDW-CV | 58.6 (H)Comment: Testing | 37 - 53 fl | EXTERNAL | | | | performed at [facility], [address] | | LAB | | | | [address], | | | | | | [place] [address] | | | | + + + + + + | Platelet | 166Comment: Testing | 150 - 400 K/uL | EXTERNAL | | | Count | performed at [facility], [address] | | LAB | | | Plasma | [address], | | | | | | [place] [address] | | | | + + + + + + | MPV | 8.7Comment: Testing | fl | EXTERNAL | | | | performed at [facility], [address] | | LAB | | | | [address], | | | | | | [place] [address] | | | | + + + + + + | Differentia | MANUALComment: Testing | | EXTERNAL | | | l Type | performed at [facility], [address] | | LAB | | | | [address], | | | | | | [place] [address] | | | | + + + + + + | Segmented | 81Comment: Testing | % | EXTERNAL | | | Neutrophils | performed at [facility], [address] | | LAB | | | Manual | [address], | | | | | | [place] [address] | | | | + + + + + + | % Bands | 4Comment: Testing | % | EXTERNAL | | | | performed at [facility], [address] | | LAB | | | | [address], | | | | | | [place] [address] | | | | + + + + + + | Lymphocytes | 8Comment: Testing | % | EXTERNAL | | | Manual | performed at [facility], [address] | | LAB | | | | [address], | | | | | | [place] [address] | | | | + + + + + + | Monocytes | 6Comment: Testing | % | EXTERNAL | | | Manual | performed at [facility], [address] | | LAB | | | | [address], | | | | | | [place] [address] | | | | + + + + + + | Eosinophils | 1Comment: Testing | % | EXTERNAL | | | Manual | performed at [facility], [address] | | LAB | | | | [address], | | | | | | [place] [address] | | | | + + + + + + | Absolute | 7.47 (H)Comment: Testing | 1.90 - 7.40 | EXTERNAL | | | Neutrophils | performed at [facility], [address] | K/uL | LAB | | | | [address], | | | | | | [place] [address] | | | | + + + + + + | Bands | 0.37 (H)Comment: Testing | 0.00 - 0.20 | EXTERNAL | | | Manual | performed at [facility], [address] | K/uL | LAB | | | | [address], | | | | | | [place] [address] | | | | + + + + + + | Absolute | 0.74 (L)Comment: Testing | 1.00 - 3.90 | EXTERNAL | | | Lymphocytes | performed at [facility], [address] | K/uL | LAB | | | | [address], | | | | | | [place] [address] | | | | + + + + + + | Absolute | 0.55Comment: Testing | 0.00 - 0.80 | EXTERNAL | | | Monocytes | performed at [facility], [address] | K/uL | LAB | | | | [address], | | | | | | [place] [address] | | | | + + + + + + | Absolute | 0.09Comment: Testing | 0.00 - 0.50 | EXTERNAL | | | Eosinophils | performed at [facility], [address] | K/uL | LAB | | | | [address], | | | | | | [place] [address] | | | | + + + + + + | RBC | 2+Comment: ANISOTesting | | EXTERNAL | | | Morphology | performed at [facility], [address] | | LAB | | | | [address], | | | | | | [place] [address] | | | | | | | [...]
--- OUTSIDE RECORDS SUMMARY | ~2019-02-20 | XMS | Encounter Summary ---
Demographics + + + | Address | [address] | | | [place] [address] | + + + | Home Phone [...] Providers + +------+ + | Care Auto Mechanics Instructor Name | Role | Phone | [...] as of this encounter Progress Notes Interface, Psychology Fellow In - 03/16/2006 3:[address] [facility] [place] [facility] [place] [address] [place], [place] [address] or January 22, 1998 AGUSTINA FERNANDEZ MD [address] [place] [address] RE: German Rose MR# [id number] Dear Doctor [...] to see him. Sincerely, Dylan Arthur M.D. Mig Welder, Otolaryngology Head and Neck Surgery Jose d ocumented in this encounter Plan of Treatment Not on filedocumented as of this encounter Visit Diagnoses Not on filedocumented in this encounter"
--- OUTSIDE RECORDS SUMMARY | ~2019-02-20 | XMS | Encounter Summary ---
Demographics + + + | Address | [address] | | | [place] [address] | + + + | Home Phone | | + + + | Preferred Language | Unknown | + + + | Marital Status | | + + + | Yarsanism Affiliation | 1028 | + + + | Race | Unknown | + + + | Ethnic Group | Unknown | + + + Author + + + | Author | [facility] | | | and [place] | + + + | Organization | [facility] | [...] [place] | | | | | [address] | | + + + + + Care Team Providers + +------+ + | Care Administrative Tech Name | Role | Phone | + [...] Provider Unknown | | | | | [place], [place] | [phone] | | | | | [address] | | | | | | [phone] | | | +--------+ + + + [...] | 03/05/ | Office | Pulmonology | [facility], | | | 2018 | Visit | | Mary Pinto, | | | | | | MD [address] | | | | | | [place], | | | | | | [place] [address] | | | | | | [phone] | | | | | | | | +--------+---------+ + + + | 05/19/ | Office | Cardiology | [place], [place], | | | 2020 | Visit | | [address] | | | | | | [place] | | | | | | [address] | | | | | | | | +--------+---------+ + + + documented as of this encounter Procedures + +--------+ + + + | Procedure Name | Priori | Date/Time | Associated Diagnosis | Comments | | | ty | | | | + +--------+ + + + | MRI CERVICAL SPINE | Routin | 04/12/2017 | | Results for this | | WO CONTRAST | e | 5:06 AM | | procedure are in the | | | | PST | | results section. | + +--------+ + + + documented in this encounter Results MRI Cervical Spine wo Contrast (04/12/2017 5:06 AM PST) + + | Specimen | [...]
--- OUTSIDE RECORDS SUMMARY | ~2019-02-20 | XMS | Encounter Summary ---
Demographics + + + | Address | [address] | | | [place] [address] | + + + | Home Phone [...] [place] | | | | | [address] | | + + + + + Care Team Providers + +------+ + | Care Greaser And Oiler Name | Role | Phone | [...] | | [address] | [place] [address] | | | | | [place] | [phone] | | | | | [address] | | | | | | [phone] | | | +--------+ + + + [...] | | | | | | MD [address] | | | | | | [place], | | | | | | [place] [address] | | | | | | [phone] | | | | | | | | +--------+---------+ + + + | 05/19/ | Office | Cardiology | Cristian Mccoy, | | | 2019 | Visit | | [address] | | | | | | [place] [facility] [place] | | | | | | [address] | | | | | | | [...]
--- OUTSIDE RECORDS SUMMARY | ~2019-02-20 | XMS | Encounter Summary ---
Demographics + + + | Address | [address] | | | [place] [address] | + + + | Home Phone [...] Team Providers + +------+ + | Care Wrapper Stripper Name | Role | Phone | + +------+ + | Maycol Knutson MD | PCP | | + +------+ + Encounter Details +--------+ + + + + | Date | Type | Department | Care Team | Description | +--------+ + + + + | 07/13/ | Office | [facility] | Note, [...] as of this encounter Progress Notes Interface, Final Operations Technician In - 02/05/2006 1:06 AM PSTCLINIC DATE: 07/14/1999 OTOLARYNGOLOGY, HEAD AND NECK SURGERY The patient is seen back today in followup with respect to his laryngotracheal reconstruction for glottic stenosis. He is doing very well and has not had any specific problems. Flexible fiberoptic laryngoscopy is done today and reveals that his T-tube is in good position. At the anterior commissure, I can still see a little bit of exposed and probably sequestered cartilage, but certainly there is minimal inflamation surrounding this. He and I discussed, therefore, removal of his T-tube and placement of a Sherman cannula. I anesthetized the stomal site with 1% Xylocaine with 1:100,000 epinephrine for hemostasis removing the T-tube and placing a #8 Sherman cannula. I trimmed it to length, and we will observe him back in a month to see if there is any restenosis or collapse as a result of removal of his tube. Dylan Arthur M.D. KRIS / [id number] / [id number] / [id number] / [id number] signed by Interface, Final Operations Technician In at 02/05/2006 1:06 AM PSTdocume nted in this encounter Plan of Treatment Not on filedocumented as of this encounter Visit Diagnoses Not on filedocumented in this encounter"
--- OUTSIDE RECORDS SUMMARY | ~2019-02-20 | XMS | Encounter Summary ---
Demographics + + + | Address | [address] | | | [place] [address] | + + + | Home Phone [...] Team Providers + +------+ + | Care Aircraft Quality Control Inspector Name | Role | Phone | [...] | | | [address] | [place], [place] | | | | | Mailcode: PV01 | [address] | | | | | [facility] | [phone] | | | | | [place], [place] | | | | | | [address] | | | | | | [phone] | | | +--------+ + + + [...]
--- OUTSIDE RECORDS SUMMARY | ~2019-02-20 | XMS | Encounter Summary ---
Demographics + + + | Address | [address] | | | [place] [address] | + + + | Home Phone [...] Team Providers + +------+ + | Care Salesforce Consultant Name | Role | Phone | + +------+ + | Maycol Knutson MD | PCP | | + +------+ + Encounter Details +--------+ + + + + | Date | Type | Department | Care Team | Description | +--------+ + + + + | 08/10/ | Office | [facility] | Note, [...] as of this encounter Progress Notes Interface, Property Coordinator In - 02/05/2006 1:06 AM PSTCLINIC DATE: 08/11/1999 OTOLARYNGOLOGY HEAD AND NECK SURGERY SUBJECTIVE: The patient was seen back today with respect to the possibility of decannulation. He is doing very well with his tracheotomy plug and had no issues. He is able to keep it plugged day and night, and has been participating in pretty vigorous sports without difficulty. PHYSICAL EXAMINATION: Flexible fiberoptic laryngoscopy is done antegrade and retrograde through his tracheotomy. There is a small amount of granulation tissue in his posterior pharyngeal wall, but his airway is, otherwise, intact and appears to be adequate for phonation and exercise. I, therefore, removed his tracheotomy and counseled him in the care. I will see him back here in four weeks for final check. Dylan Arthur M.D. KRIS / [id number] / [id number] / [id number] / [id number] signed by Interface, Property Coordinator In at 02/05/2006 1:06 AM PSTdocume nted in this encounter Plan of Treatment Not on filedocumented as of this encounter Visit Diagnoses Not on filedocumented in this encounter"
--- OUTSIDE RECORDS SUMMARY | ~2019-02-20 | XMS | Encounter Summary ---
Demographics + + + | Address | [address] | | | [place] [address] | + + + | Home Phone | | + + + | Preferred Language | Unknown | + + + | Marital Status | | + + + | Mandaen Affiliation | LUT | + + + | Race | White | + + + | Ethnic Group | Not or | + + + Author + + + | Author | [facility] | + + + | Organization | [facility] | + + + | Address | Unknown | + + + | Phone | Unavailable | + + + Support + + +---------+ + | Name | Relationship | Address | Phone | + + +---------+ + | Blossom Rose | ECON | Unknown | | + + +---------+ + Care Team Providers + +------+ + | Care Slip Laster Name | Role | Phone | + [...] as of this encounter Progress Notes Interface, Skatesman In - 02/15/2006 5:09 AM PSTCLINIC DATE: [...] pH probe. Dylan Arthur M.D. KRIS / [id number] / [id number] / [id number] / [id number] Tdocumented in this encounter Plan of Treatment Not on filedocumented as of this encounter Visit Diagnoses Not on filedocumented in this encounter"
--- OUTSIDE RECORDS SUMMARY | ~2019-02-20 | XMS | Encounter Summary ---
Demographics + + + | Address | [address] | | | [place] [address] | + + + | Home Phone [...] + + | Author | [facility] | + + + | Organization | [facility] | + + + | Address | Unknown | + + + | Phone | Unavailable | + + + Support + + +---------+ + | Name | Relationship | Address | Phone | + + +---------+ + | Blossom Rose | ECON | Unknown | | + + +---------+ + Care Team Providers + +------+ + | Care Manager Internet Name | Role | Phone | + +------+ + | Maycol Knutson MD | PCP | | + +------+ + Encounter Details +--------+ + + + + | Date | Type | Department | Care Team | Description | +--------+ + + + + | 02/20/ | Documentati | Health Information | Other, Faculty | | | 2018 | on | Services [address] | [phone] | | | | | [address] | | | | | | Mailcode: [id number] | | | | | | [facility] | | | | | | [place], [place] | | | | | | [address] | | | | | | [phone] | | | +--------+ + + + [...]
--- OUTSIDE RECORDS SUMMARY | ~2019-02-20 | XMS | Encounter Summary ---
Demographics + + + | Address | [address] | | | [place] [address] | + + + | Home Phone [...] Team Providers + +------+ + | Care Front End Java Developer Name | Role | Phone | [...] as of this encounter Progress Notes Interface, Delivery Merchandiser In - 03/06/2006 1:03 AM PSTCLINIC DATE: [...] Arthur M.D. KRIS/sue cc: Rohan Barragan M.D. [facility] AGUSTINA FERNANDEZ MD [address] [facility] [address] MAYCOL CALLAHAN MD [address] [address] [place] [id number] signed by Interface, Delivery Merchandiser In at 03/06/2006 1:03 AM PSTInterface, Delivery Merchandiser In - 03/06/2006 1:03 AM PSTCLINIC DATE: [...]
--- OUTSIDE RECORDS SUMMARY | ~2019-02-20 | XMS | Encounter Summary ---
Demographics + + + | Address | [address] | | | [place] [address] | + + + | Home Phone | | + + + | Preferred Language | Unknown | + + + | Marital Status | | + + + | Oriental Orthodox Affiliation | LUT | + + [...] Team Providers + +------+ + | Care Centrifugal Spinner Name | Role | Phone | + [...] as of this encounter Progress Notes Interface, String Winding Machine Operator In - 03/18/2006 5:06 AM PSTCLINIC DATE: [...] things have healed further. Dylan Arthur M.D. Manager Sharepoint, Otolaryngology Head and Neck Surgery KRIS/josette d ocumented in this encounter Plan of Treatment Not on filedocumented as of this encounter Visit Diagnoses Not on filedocumented in this encounter"
--- OUTSIDE RECORDS SUMMARY | ~2019-02-20 | XMS | Encounter Summary ---
Demographics + + + | Address | [address] | | | [place] [address] | + + + | Home Phone [...] Team Providers + +------+ + | Care Tour Actor Name | Role | Phone | + [...]
--- OUTSIDE RECORDS SUMMARY | ~2019-02-20 | XMS | Encounter Summary ---
Demographics + + + | Address | [address] | | | [place] [address] | + + + | Home Phone [...] [place] | | | | | [address] | | + + + + + Care Team Providers + +------+ + | Care Mud Analysis Well Logging Operator Name | Role | Phone | [...] + + | 05/28/ | Office | [facility] | Aleksandar Tejeda PA | [place]OLA (obstructive | | 2013 | Visit | SLEEP DISORDER [address] | [address] | sleep apnea) | | | | [address] | [facility] | (Primary Dx); | | | | [place] [address] | [address] | Victoriano[place]Wallace | | | | [phone] | | breathing | +--------+---------+ + + [...] BiPAP with nasal mask ([place]ary) obtained from: [facility] pressure: EPAP = 4cm;PSmin=0cm;PSmax=25cm;backup rate=auto [...] month, sooner prn. Fifteen minutes were spent reje-qh-xtih, wi th the majority of time spent [...] | | | | | | [place] [address] | | | | | | [phone] | | | | | | | | +--------+---------+ + + + | 05/19/ | Office | Cardiology | Cristian Mccoy, | | | 2019 | Visit | | MD [address] | | | | | | [place] | | | | | | [id number] | | | | | | | | +--------+---------+ + + + documented as of this encounter Visit Diagnoses + + | Diagnosis | + + | [place] (obstructive sleep apnea) - Primary Obstructive sleep apnea (adult) (pediatric) | + + | Victoriano-Wallace breathing Victoriano-Wallace respiration | + + documented in this encounter"
--- OUTSIDE RECORDS SUMMARY | ~2019-02-20 | XMS | Encounter Summary ---
Demographics + + + | Address | [address] | | | [place] [address] | + + + | Home Phone [...] [place] | | | | | [address] | | + + + + + Care Team Providers + +------+ + | Care Plate Mounter Name | Role | Phone | + [...] Closed | | Radiology | Diagnoses | Maicol Si, | | | | | | Carotid | DNP [address] | | | | | | stenosis, | [address] | | | | | | bilateral | [place] | | | | | | Procedures | [place] | | | | | | VAS Carotid | [address] | | | | | | Duplex | Phone: | | | | | | Bilateral | [phone] | | | | | | | Fax: | | | | | | | [phone] | | +--------+--------+ + + + + Diagnostic/Screening (Routine) +--------+--------+ + + + + | Status | Reason | Specialty | Diagnoses / | Referred By | Referred To | | | | | Procedures | Contact | Contact | +--------+--------+ + + + + | Closed | | Radiology | Diagnoses | Bridget Milian, | | | | | | Abdominal | DNP [address] | | | | | | aortic | [address] | | | | | | aneurysm | [place] | | | | | | (AAA) | [place] | | | | | | without | [address] | | | | | | rupture | Phone: | | | | | | (HCC) | [phone] | | | | | | Procedures | Fax: | | | | | | VAS Aorta | [phone] | | | | | | Iliac [...] + + | 01/16/ | Telephone | [facility] | Bridget Milian DNP | Follow-up | | 2019 | | VASCULAR SURGERY | [address] | | | | | [address] [place] | [place] [facility] | | | | | [place] | [address] | | | | | [address] | | | | | | [phone] | | | +--------+ + + + [...] | | | | | | [place] [address] | | | | | | [phone] | | | | | | | | +--------+---------+ + + + | 05/19/ | Office | Cardiology | Cristian Mccoy, | | | 2019 | Visit | | MD [address] | | | | | | [place] | | | | | | [address] | | | | | | | | +--------+---------+ + + + documented as of this encounter Results VAS Carotid Duplex Bilateral [...] + + | Performing | Address | City/State[facility] | Phone Number | | Organization | [...]
--- OUTSIDE RECORDS SUMMARY | ~2019-02-20 | XMS | Clinical Summary ---
Demographics + + + | Address | [address] | | | [place] [address] | + + + | Home Phone | | + + + | Preferred Language | Unknown | + + + | Marital Status | | + + + | Quaker Affiliation | 1028 | + + + | Race | Unknown | + + + | Ethnic Group | Unknown | + + + Author + + + | Author | [facility] (Historical as of | | | 11-01-18) | + + + | Organization | [facility] (Historical as of | | | 11-01-18) [...] [place] | | | | | [address] | | + + + + + Care Team Providers + +------+ + | Care Forestry Workers Name | Role | Phone | + [...] (See Comments) | Medium | 09/14/19 | SENIOR FIELD ENGINEER | | | | | 15 | [...] | | | | Activ | | [id number] | mouth daily. 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
--- OUTSIDE RECORDS SUMMARY | ~2019-02-20 | XMS | Encounter Summary ---
Demographics + + + | Address | [address] | | | [place] [address] | + + + | Home Phone [...] Team Providers + +------+ + | Care Equity Holder Name | Role | Phone | + [...] as of this encounter Progress Notes Interface, Embryology Teacher In - 02/05/2006 1:06 AM PSTCLINIC DATE: [...] his tube. Dylan Arthur M.D. KRIS / [id number] / [id number] / [id number] / [id number] signed by Interface, Embryology Teacher In at 02/05/2006 1:06 AM PSTdocume nted in this encounter Plan of Treatment Not on filedocumented as of this encounter Visit Diagnoses Not on filedocumented in this encounter"
--- OUTSIDE RECORDS SUMMARY | ~2019-02-20 | XMS | Encounter Summary ---
Demographics + + + | Address | [address] | | | [place] [address] | + + + | Home Phone | | + + + | Preferred Language | Unknown | + + + | Marital Status | | + + + | Bahai Affiliation | 1028 | + + + | Race | Unknown | + + + | Ethnic Group | Unknown | + + + Author + + + | Author | [facility] | | | and [place] | + + + | Organization | [facility] | | | [...] [place] | | | | | [address] | | + + + + + Care Team Providers + +------+ + | Care Sustainable Communities Designer Name | Role | Phone | + +------+ + | Maycol Knutson MD | PCP | | + +------+ + Encounter Details +--------+ + + + + | Date | Type | Department | Care Team | Description | +--------+ + + + + | 08/01/ | Hospital | [facility] | Conversion | Pain | | 2018 | Encounter | CONVERSION [address] | Transaction, | | | | | [address] | Provider Unknown | | | | | [place], [place] | [phone] | | | | | [address] | | | | | | [phone] | | | +--------+ + + + [...] | | | | | | [place] [address] | | | | | | [phone] | | | | | | | | +--------+---------+ + + + | 05/19/ | Office | Cardiology | Nadine Paulvirgilio, | | | 2019 | Visit | | [address] | | | | | | [place] | | | | | | [address] | | | | | | | [...]
--- OUTSIDE RECORDS SUMMARY | ~2019-02-20 | XMS | Encounter Summary ---
Demographics + + + | Address | [address] | | | [place] [address] | + + + | Home Phone [...] Team Providers + +------+ + | Care Clinical Trial Data Manager Name | Role | Phone | [...] periodic choking on | | | | [facility] [address] | | food, and tightening | | | | Mailcode: PV01 | | sensation. PCP | | | | [facility] | | suggested German | | | | [place], [place] | | return to see | | | | [address] | | Jerson. Please | | | | [phone] | | advise for | | | [...]
--- OUTSIDE RECORDS SUMMARY | ~2019-02-20 | XMS | Encounter Summary ---
Demographics + + + | Address | [address] | | | [place] [address] | + + + | Home Phone [...] Team Providers + +------+ + | Care Paper Mill Supervisor Name | Role | Phone | [...]
--- OUTSIDE RECORDS SUMMARY | ~2019-02-20 | XMS | Encounter Summary ---
Demographics + + + | Address | [address] | | | [place] [address] | + + + | Home Phone [...] Team Providers + +------+ + | Care Aeronautical Engineer Name | Role | Phone | [...] as of this encounter Progress Notes Interface, Data Analytics Chief Scientist In - 09/22/2005 1:03 AM [facility] [facility] [place] [address] [place], [place] [address] or May 08, 2002 Maycol Knutson M.D. [address] [place] [address] RE: GERMAN ROSE MR #: [id number] Dear Dr. Knutson: Just a brief note [...] any questions. Yours sincerely, Dylan Arthur M.D. [facility] / [id number] / [id number] / [id number] / cc: Moisés Quezada M.D. [address] [facility] [place], [place] [id number] signed by Interface, Data Analytics Chief Scientist In at 09/22/2005 1:0 3 AM PDTdocumented in this encounter Plan of Treatment Not on filedocumented as of this encounter Visit Diagnoses Not on filedocumented in this encounter"
--- OUTSIDE RECORDS SUMMARY | ~2019-02-20 | XMS | Encounter Summary ---
Demographics + + + | Address | [address] | | | [place] [address] | + + + | Home Phone [...] Team Providers + +------+ + | Care Coke Oven Mason Name | Role | Phone | + [...] as of this encounter Progress Notes Interface, Direct Sales Professional In - 03/01/2006 3:03 AM PSTCLINIC DATE: 10/17/1998 OTOLARYNGOLOGY HEAD AND NECK SURGERY CLINIC SUBJECTIVE: Mr. 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 He is two weeks status post dilatation, up to a 32 Serbian dilator two weeks ago. Concomitantly, he underwent [...] Prilosec. OBJECTIVE: On exam, he is a nmtb-anovnypbl-hjymikqks gentleman, nontoxic, and in no obvious distress. [...] his glottis. Connor Osorio M.D. PATTIE / [id number] / [id number] / [id number] signed by Interface, Direct Sales Professional In at 03/01/2006 3:03 AM PSTInterf anatoly, Direct Sales Professional In - 02/26/2006 5:02 AM PSTCLINIC DATE: [...] with continued complaints of phlegm and thin cuaqp-ls-egigd material building up in the back of [...] Barragan M.D. KIMBERLY/marbella P C: 11/23/1998 elliott [id number]: Dylan Arthur MD ENT PV 01 docunoble chicas in this encounter Plan of Treatment Not on filedocumented as of this encounter Visit Diagnoses Not on filedocumented in this encounter"
--- OUTSIDE RECORDS SUMMARY | ~2019-02-20 | XMS | Encounter Summary ---
Demographics + + + | Address | [address] | | | [place] [address] | + + + | Home Phone | | + + + | Preferred Language | Unknown | + + + | Marital Status | | + + + | Christian Affiliation | 1028 | + + + | Race | Unknown | + + + | Ethnic Group | Unknown | + + + Author + + + | Author | [facility] | | | and [place] | + + + | Organization | [facility] | | [...] [place] | | | | | [address] | | + + + + + Care Team Providers + +------+ + | Care Plastic Cutter Name | Role | Phone | [...] [place] | | | | | | [address] | | | | | | [phone] | | | +--------+ + + + [...] | | | | | | [place] [address] | | | | | | [phone] | | | | | | | | +--------+---------+ + + + | 05/19/ | Office | Cardiology | Cristian Mccoy, | | | 2019 | Visit | | MD [address] | | | | | | [place] | | | | | | [address] | | | | | | | [...]
--- OUTSIDE RECORDS SUMMARY | ~2019-02-20 | XMS | Encounter Summary ---
Demographics + + + | Address | [address] | | | [place] [address] | + + + | Home Phone | | + + + | Preferred Language | Unknown | + + + | Marital Status | | + + + | Scientologist Affiliation | LUT | + + + [...] Team Providers + +------+ + | Care Cell Room Operator Name | Role | Phone | [...] | Transcriptions | + + | Interface, Director Of Hotel Operations In - 03/22/2006 5:11 AM PST | | [facility] [facility] | | [place], [place] [address] [place] | | [facility] HospitalOPERATION RECORDMed Rec No.: [id number] Date: | | 02/17/1998Name: Jose Martin Rose SURGEON: Dylan Arthur M.D. | | Patient Observation Assistant, Otolaryngology | | Head and Neck SurgeryASSISTANTS: [...] M.D. | | Dylan Arthur M.D.Resident, Otolaryngology Patient Observation Assistant, | | OtolaryngologyHead and Neck Surgery Head [...] M.D. Dylan Arthur M.D. | |Resident, Otolaryngology Patient Observation Assistant, Otolaryngology | |Head and Neck Surgery Head and Neck Surgery | | | |CHERELLE/lamont | | | | A | | | |cc: | + + documented in this encounter Visit Diagnoses Not on filedocumented in this encounter"
--- OUTSIDE RECORDS SUMMARY | ~2019-02-20 | XMS | Encounter Summary ---
Demographics + + + | Address | [address] | | | [place] [address] | + + + | Home Phone | | + + + | Preferred Language | Unknown | + + + | Marital Status | | + + + | Mandaeism Affiliation | 1028 | + + + | Race | Unknown | + + + | Ethnic Group | Unknown | + + + Author + + + | Author | [facility] | | | and [place] | + + + | Organization | [facility] | | | [...] [place] | | | | | [address] | | + + + + + Care Team Providers + +------+ + | Care Fire Pilot Name | Role | Phone | [...] | SR | | | | | [phone] | | | +--------+ + + + [...] | | | | | | [place] [address] | | | | | | [phone] | | | | | | | | +--------+---------+ + + + | 05/19/ | Office | Cardiology | Cristian Mccoy, | | | 2019 | Visit | | [address] | | | | | | [place] | | | | | | [address] | | | | | | | [...]
--- OUTSIDE RECORDS SUMMARY | ~2019-02-20 | XMS | Encounter Summary ---
Demographics + + + | Address | [address] | | | [place] [address] | + + + | Home Phone | | + + + | Preferred Language | Unknown | + + + | Marital Status | | + + + | Buddhism Affiliation | LUT | + + + [...] Team Providers + +------+ + | Care County Library Director Name | Role | Phone | [...] [place] | | | | | | [place], [place] | Mailcode: | | | | | | [address] | [address] | | | | | | | Physician's | | | | | | | Pavilion | | | | | | | [place], [place] | | | | | | | [address] | | | | | | | Phone: | | | | | | | [phone] | | | | | | | Fax: | | | | | | | [phone] | +--------+--------+ + + + + Encounter [...] | | | [address] | [place], [place] | 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; | | | | Physician's [place] | [phone] | History of laryngeal | | | | [place], [place] | | cancer | | | | [address] | | | | | | [phone] | | | +--------+---------+ + + + [...] AM PDT PATIENT NAME: German Rose MR#: [id number] : 1945 REFERRING PROVIDER: RICKEY ARTHUR Otolaryngology [facility] [place] [address] PRIMARY CARE PROVIDER: Maycol Knutson MD CLINIC: [facility] REASON FOR [...] male who was last seen at the [facility] for [...] right glottis Radiation fibrosis larynx Glottic stenosis IN (myocardial infarction) PUD (peptic ulcer disease) Fibromyalgia [...] understands and a grees. Alexei De M.D. Hyperion Developer Laryngology and Head & Neck Surgery [place] [...] | + +--------+ + + + | [place] | Routin | 07/31/2010 | Glottic stenosis [...]
--- OUTSIDE RECORDS SUMMARY | ~2019-02-20 | XMS | Encounter Summary ---
Demographics + + + | Address | [address] | | | [place] [address] | + + + | Home Phone | | + + + | Preferred Language | Unknown | + + + | Marital Status | | + + + | Samaritan Affiliation | LUT | + + + [...] Team Providers + +------+ + | Care Customer Account Manager Name | Role | Phone [...] as of this encounter Progress Notes Interface, Management Development Specialist In - 02/05/2006 1:06 AM PSTCLINIC DATE: [...] final check. Dylan Arthur M.D. KRIS / [id number] / [id number] / [id number] / [id number] signed by Interface, Management Development Specialist In at 02/05/2006 1:06 AM PSTdocume nted in this encounter Plan of Treatment Not on filedocumented as of this encounter Visit Diagnoses Not on filedocumented in this encounter"
--- OUTSIDE RECORDS SUMMARY | ~2019-02-20 | XMS | Encounter Summary ---
Demographics + + + | Address | [address] | | | [place] [address] | + + + | Home Phone [...] Team Providers + +------+ + | Care Insulation Worker Furnace Installer Name | Role | Phone [...] [id number] | | | | | | [place], [place] | | | | | | [address] | | | | | | [phone] | | | +--------+ + + + [...] | + + + + + | [facility] | [address] | [place] [address] | | | PATHOLOGY | [address] | | | + + + + + documented in this encounter Visit Diagnoses Not on filedocumented in this encounter"
--- OUTSIDE RECORDS SUMMARY | ~2019-02-20 | XMS | Encounter Summary ---
Demographics + + + | Address | [address] | | | [place] [address] | + + + | Home Phone | | + + + | Preferred Language | Unknown | + + + | Marital Status | | + + + | Zoroastrianism Affiliation | LUT | + + + [...] Providers + +------+ + | Care Instructional Interventionist Name | Role | Phone | + [...] as of this encounter Progress Notes Interface, Account Support Specialist In - 10/14/2004 6:15 PM PDT [place] [address], [place] [address] or Department of Otolaryngology - [address] May 07, 2003 Moisés Quezada M.D. [address] [place] [address] RE: GERMAN ROSE MR #: [id number] Dear Dr. Quezada: Just a brief note [...] for him. Yours sincerely, Dylan Arthur M.D. [facility] / [id number] / [id number] / [id number] / cc: Maycol Luna M.D. [address] [place], [place] [id number] signed by Interface, Account Support Specialist In at 10/14/2004 6:1 5 PM PDTdocumented in this encounter Plan of Treatment Not on filedocumented as of this encounter Visit Diagnoses Not on filedocumented in this encounter"
--- OUTSIDE RECORDS SUMMARY | ~2019-02-20 | XMS | Encounter Summary ---
Demographics + + + | Address | [address] | | | [place] [address] | + + + | Home Phone | | + + + | Preferred Language | Unknown | + + + | Marital Status | | + + + | Restoration Affiliation | 1028 | + + + | Race | Unknown | + + + | Ethnic Group | Unknown | + + + Author + + + | Author | [facility] | | | and [place] | + + + | Organization | [facility] | | [...] [place] | | | | | [address] | | + + + + + Care Team Providers + +------+ + | Care Material Worker Name | Role | Phone | + +------+ + | Maycol Knutson MD | PCP | | + +------+ + Encounter Details +--------+ + + + + | Date | Type | Department | Care Team | Description | +--------+ + + + + | 04/03/ | Hospital | [facility] | Conversion | Pain | | 2018 | Encounter | [address] | Transaction, | | | | | [address] | Provider Unknown | | | | | [place], [place] | [phone] | | | | | [address] | | | | | | [phone] | | | +--------+ + + + [...] | Office | Pulmonology | [facility], | | | 2018 | Visit | | Mary Pinto, | | | | | | MD [address] | | | | | | [place], | | | | | | [place] [address] | | | | | | [phone] | | | | | | | | +--------+---------+ + + + | 05/19/ | Office | Cardiology | [place], [place], | | | 2020 | Visit | | [address] | | | | | | [place] | | | | | | [address] | | | | | | | [...]
--- OUTSIDE RECORDS SUMMARY | ~2019-02-20 | XMS | Encounter Summary ---
Demographics + + + | Address | [address] | | | [place] [address] | + + + | Home Phone | | + + + | Preferred Language | Unknown | + + + | Marital Status | | + + + | Mormonism Affiliation | 1028 | + + + | Race | Unknown | + + + | Ethnic Group | Unknown | + + + Author + + + | Author | [facility] | | | and [place] | + + + | Organization | [facility] | | | [...] [place] | | | | | [address] | | + + + + + Care Team Providers + +------+ + | Care Operations And Maintenance Technician Name | Role | Phone [...] | | | Services | Medicine | [place] | Sharan Sidhu | [address] | | | Required | | sleep apnea | MD [address] [place] | | | | | due to | [address] [place] | [place], | | | | | [place] | [place] | [place] [address] | | | | | s | [place] | Phone: | | | | | respiration | [address] | [phone] | | | | | [place] | Phone: | Fax: | | | | | (obstructive | [phone] | [phone] | | | | | sleep | Fax: | | | | | | apnea) | [phone] | | | | | | Procedures | | | | | | | [place] POLYSOM | | | | | | [...] + + | 01/03/ | Hospital | [facility] | Sharan Bruno | Central sleep apnea | | 2015 | Encounter | MED CTR SLEEP | MD [address] | due to [place] | | | | CENTER [address] | [address] [facility] | respiration | | | | [place], [place] | [facility] [place] [place] [address] | (Primary Dx); [place] | | | | [address] | [phone] | (obstructive sleep | | | | [phone] | | apnea) | +--------+ + + [...] [address] | | | | | | [place], | | | | | | [place] [address] | | | | | | [phone] | | | | | | | | +--------+---------+ + + + | 05/19/ | Office | Cardiology | Cristian Mccoy, | | | 2020 | Visit | | [address] | | | | | | [place], [place] | | | | | | [address] | | | | | | | [...]
--- OUTSIDE RECORDS SUMMARY | ~2019-02-20 | XMS | Encounter Summary ---
Demographics + + + | Address | [address] | | | [place] [address] | + + + | Home Phone [...] [place] | | | | | [address] | | + + + + + Care Team Providers + +------+ + | Care Environmental Health Safety Engineer Name | Role | Phone | [...] + + | 01/22/ | Office | [facility] | Sharan Bruno | Central sleep apnea | | 2012 | Visit | SLEEP DISORDER [address] | MD [address] | due to [place] | | | | [address] [place] | [address] [place] | respiration | | | | [place] [address] | [place] [address] | (Primary Dx) | | | | [phone] | [phone] | | | | | | | [...] | | | | | | [place] [address] | | | | | | [phone] | | | | | | | | +--------+---------+ + + + | 05/19/ | Office | Cardiology | Nadine Cristian, | | | 2019 | Visit | | MD [address] | | | | | | [place] | | | | | | [phone] | | | | | | | | +--------+---------+ + + + documented as of this encounter Visit Diagnoses + + | Diagnosis | + + | 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 - Primary [place] | | respiration | + + documented in this encounter"
--- OUTSIDE RECORDS SUMMARY | ~2019-02-20 | XMS | Encounter Summary ---
Demographics + + + | Address | [address] | | | [place] [address] | + + + | Home Phone [...] [place] | | | | | [address] | | + + + + + Care Team Providers + +------+ + | Care Chlorinator Name | Role | Phone | + [...] | | | | Procedures | [place] | | | | | | VAS Carotid | [id number] | | | | | | Duplex | Phone: | | | | | | Bilateral | [phone] | | | | | | | Fax: | | | | | | | [phone] | | +--------+--------+ + + + + [...] | | | | (AAA) | [place] | | | | | | without | [address] | | | | | | rupture | Phone: | | | | | | (HCC) | [phone] | | | | | | Procedures | Fax: | | | | | | VAS Aorta | [phone] | | | | | | Iliac [...] + + | 01/16/ | Telephone | [facility] | Bridget Milian DNP | Follow-up | | 2019 | | VASCULAR SURGERY | [address] | | | | | [address] [place] | [place] [facility] [place] | | | | | [place] | [address] | | | | | [address] | | | | | | [phone] | | | +--------+ + + + [...] | | | | | | [place] [address] | | | | | | [phone] | | | | | | | | +--------+---------+ + + + | 05/19/ | Office | Cardiology | Cristian Mccoy, | | | 2019 | Visit | | MD [address] | | | | | | [place] | | | | | | [address] | | | | | | | [...] + + | Performing | Address | City/State/[facility] | Phone Number | | Organization [...]
--- OUTSIDE RECORDS SUMMARY | ~2019-02-20 | XMS | Encounter Summary ---
Demographics + + + | Address | [address] | | | [place] [address] | + + + | Home Phone [...] [place] | | | | | [address] | | + + + + + Care Team Providers + +------+ + | Care Acid Changer Name | Role | Phone | + [...] | | | | VAS Carotid | [address] | | | | | | Duplex | Phone: | | | | | | Bilateral | [phone] | | | | | | | Fax: | | | | | | | [phone] | | +--------+--------+ + + + + Encounter Details +--------+ + + + + | Date | Type | Department | Care Team | Description | +--------+ + + + + | 01/19/ | Hospital | [facility] | | Carotid stenosis, | | 2019 | Encounter | VASCULAR SURGERY | | bilateral | | | | ULTRASOUND [address] | | | | | [address] | | | | | | [place] | | | | | | [address] | | | | | | [phone] | | | +--------+ + + + [...] | | | | | | [place] [address] | | | | | | [phone] | | | | | | | | +--------+---------+ + + + | 05/19/ | Office | Cardiology | Cristian Mccoy, | | | 2019 | Visit | | MD [address] | | | | | | [place] | | | | | | [address] | | | | | | | [...]
--- OUTSIDE RECORDS SUMMARY | ~2019-02-20 | XMS | Encounter Summary ---
Demographics + + + | Address | [address] | | | [place] [address] | + + + | Home Phone | | + + + | Preferred Language | Unknown | + + + | Marital Status | | + + + | Taoism Affiliation | 1028 | + + + | Race | Unknown | + + + | Ethnic Group | Unknown | + + + Author + + + | Author | [facility] | | | and [place] | + + + | Organization | [facility] | | [...] [place] | | | | | [address] | | + + + + + Care Team Providers + +------+ + | Care Associate Professor Of Education Name | Role | Phone | + [...] + | 04/22/ | Office | [facility] | Aleksandar Tejeda PA | [place] on CPAP (Primary | | 2014 | Visit | SLEEP DISORDER [address] | [address] | Dx); [place] | | | | [address] [place] | [place] | respiration | | | | [place] [address] | [address] | | | | | [phone] | | | +--------+---------+ + + + [...] BiPAP with nasal mask ([place]ary) obtained from: [facility] pressure: EPAP = 4cm;PSmin=0cm;PSmax=25cm;backup rate=auto Nights [...] indefinitely. I recommended that he go to [facility] to have hi s heated hose checked/replaced, which should stop his problems with condensation. If his co ngestion continues, he should consider using a full face mask. He is to work toward wearing his BiPAP 100% of the time he is asleep. I will follow up again in 1 month, sooner prn. Fifteen minutes were spent [id number], wi th the majority of time spent [...] | | | | | | [place] [address] | | | | | | [phone] | | | | | | | | +--------+---------+ + + + | 05/19/ | Office | Cardiology | Cristian Mccoy, | | | 2019 | Visit | | MD [address] | | | | | | [place] | | | | | | [address] | | | | | | | | +--------+---------+ + + + documented as of this encounter Visit Diagnoses + + | Diagnosis | + + | [place] on CPAP - Primary Obstructive sleep apnea (adult) (pediatric) | + + | Victoriano-[place]ace respiration | + + documented in this encounter"
--- OUTSIDE RECORDS SUMMARY | ~2019-02-20 | XMS | Encounter Summary ---
Demographics + + + | Address | [address] | | | [place] [address] | + + + | Home Phone | | + + + | Preferred Language | Unknown | + + + | Marital Status | | + + + | Voodoo Affiliation | LUT | + + + [...] Team Providers + +------+ + | Care Men'S Golf Coach Name | Role | Phone | + [...] as of this encounter Discharge Summaries Interface, Emergency Detail Driver In - 02/13/2006 1:10 AM [facility] ON [address] [address] [facility] MEDICAL SUMMARY OF HOSPITALIZATION Med [...]
--- OUTSIDE RECORDS SUMMARY | ~2019-02-20 | XMS | Encounter Summary ---
Demographics + + + | Address | [address] | | | [place] [address] | + + + | Home Phone [...] [place] | | | | | [address] | | + + + + + Care Team Providers + +------+ + | Care Beaver Trapper Name | Role | Phone | + +------+ + | Maycol Knutson MD | PCP | | + +------+ + Encounter Details +--------+ + + + + | Date | Type | Department | Care Team | Description | +--------+ + + + + | 07/04/ | Hospital | [facility] | Conversion | Diagnosis unknown | | 2018 | Encounter | CONVERSION [address] | Transaction, | | | | | [address] | Provider Unknown | | | | | [place], [place] | | | | | | [address] | (Fax) | | | | | [phone] | | | +--------+ + + + [...] | | | | | | [place] [address] | | | | | | [phone] | | | | | | | | +--------+---------+ + + + | 05/19/ | Office | Cardiology | NadineCristian, | | | 2020 | Visit | | [address] | | | | | | [place] | | | | | | [address] | | | | | | | [...]
--- OUTSIDE RECORDS SUMMARY | ~2019-02-20 | XMS | Encounter Summary ---
Demographics + + + | Address | [address] | | | [place] [address] | + + + | Home Phone | | + + + | Preferred Language | Unknown | + + + | Marital Status | | + + + | Pentecostalism Affiliation | 1028 | + + + | Race | Unknown | + + + | Ethnic Group | Unknown | + + + Author + + + | Author | [facility] | | | and [place] | + + + | Organization | [facility] | | [...] [place] | | | | | [address] | | + + + + + Care Team Providers + +------+ + | Care Metal Casket Maker Name | Role | Phone | + +------+ + | Maycol Knutson MD | PCP | | + +------+ + Encounter Details +--------+ + + + + | Date | Type | Department | Care Team | Description | +--------+ + + + + | 08/08/ | Hospital | [facility] | Conversion | Pain | | 2018 | Encounter | CONVERSION [address] | Transaction, | | | | | [address] | Provider Unknown | | | | | [place], [place] | [phone] | | | | | [address] | | | | | | [phone] | | | +--------+ + + + [...] | | | | | | [place] [address] | | | | | | [phone] | | | | | | | | +--------+---------+ + + + | 05/19/ | Office | Cardiology | Nadine Paulvirgilio, | | | 2019 | Visit | | [address] | | | | | | [place] | | | | | | [address] | | | | | | | | +--------+---------+ + + + documented as of this encounter Procedures + +--------+ + + + | Procedure Name | Priori | Date/Time | Associated Diagnosis | Comments | | | ty | | | | + +--------+ + + + | CT HEAD WO CONTRAST | Routin | 10/23/2017 | | Results for this | | | e | 5:05 PM | | procedure are in the | | | | PDT | | results section. | + +--------+ + + + documented in this encounter Results CT Head wo Contrast (10/23/2017 5:05 PM PDT) + + | [...]
--- OUTSIDE RECORDS SUMMARY | ~2019-02-20 | XMS | Encounter Summary ---
Demographics + + + | Address | [address] | | | [place] [address] | + + + | Home Phone | | + + + | Preferred Language | Unknown | + + + | Marital Status | | + + + | Restorationism Affiliation | LUT | + + + | Race | White | + + + | Ethnic Group | Not or | + + + Author + + + | Author | [facility] | + + + | Organization | [facility] | + + + | Address | Unknown | + + + | Phone | Unavailable | + + + Support + + +---------+ + | Name | Relationship | Address | Phone | + + +---------+ + | Blossom Rose | ECON | Unknown | | + + +---------+ + Care Team Providers + +------+ + | Care Boiler Operators Supervisor Name | Role | Phone | [...] as of this encounter Progress Notes Interface, Qa Automation Developer In - 02/21/2006 3:03 AM PSTCLINIC DATE: [...] six weeks. Dylan Arthur M.D. Kaycee / [id number] / [id number] / [id number] / [id number] Tdocumented in this encounter Plan of Treatment Not on filedocumented as of this encounter Visit Diagnoses Not on filedocumented in this encounter"
--- OUTSIDE RECORDS SUMMARY | ~2019-02-20 | XMS | Encounter Summary ---
Demographics + + + | Address | [address] | | | [place] [address] | + + + | Home Phone [...] + + + | Author | [facility] | + + + | Organization | [facility] | + + + | Address | Unknown | + + + | Phone | Unavailable | + + + Support + + +---------+ + | Name | Relationship | Address | Phone | + + +---------+ + | Blossom Rose | ECON | Unknown | | + + +---------+ + Care Team Providers + +------+ + | Care Drying Tumbler Operator Name | Role | Phone | + +------+ + | Maycol Knutson MD | PCP | | + +------+ + Encounter Details +--------+ + + + + | Date | Type | Department | Care Team | Description | +--------+ + + + + | 01/10/ | Office | [facility] | Note, [...] as of this encounter Progress Notes Interface, Building Components Designer In - 02/23/2006 5:11 AM PSTCLINIC DATE: 01/10/1999 OTOLARYNGOLOGY HEAD NECK SURGERY SUBJECTIVE: Mr. 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 I had a full thorough discussion. He seems to understand very well the strategy of the operation, and the fact that if it is unsuccessful we would proceed with a more definitive procedure on an open basis. He will spend the night there if there are issues related to his surgery in terms of the potential for swelling. Dylan Arthur M.D. KRIS / [place] [id number] / [id number] / [id number] / Tdocumented in this encounter Plan of Treatment Not on filedocumented as of this encounter Visit Diagnoses Not on filedocumented in this encounter"
--- OUTSIDE RECORDS SUMMARY | ~2019-02-20 | XMS | Encounter Summary ---
Demographics + + + | Address | [address] | | | [place] [address] | + + + | Home Phone [...] Providers + +------+ + | Care Rn Cvicu Name | Role | Phone | + +------+ + | Maycol Knutson MD | PCP | | + +------+ + Encounter Details +--------+ + + + + | Date | Type | Department | Care Team | Description | +--------+ + + + + | 01/11/ | Procedure - | | Documentation, | [...] + + | TEACHING PHYSICIAN | | 01/11/1999 | | | + +--------+ + + + documented in this encounter Visit Diagnoses Not on filedocumented in this encounter"
--- OUTSIDE RECORDS SUMMARY | ~2019-02-20 | XMS | Encounter Summary ---
Demographics + + + | Address | [address] | | | [place] [address] | + + + | Home Phone [...] + + + | Author | [facility] | + + + | Organization | [facility] | + + + | Address | Unknown | + + + | Phone | Unavailable | + + + Support + + +---------+ + | Name | Relationship | Address | Phone | + + +---------+ + | Blossom Rose | ECON | Unknown | | + + +---------+ + Care Team Providers + +------+ + | Care Grocery Clerk Stocking Name | Role | Phone | + [...] | Only | [address] | [phone] | | | | | [place], [place] | | | | | | [address] | | | | | | [phone] | | | +--------+ + + + [...] | + + + + + | [facility] | [address] | [place] [address] | | | PATHOLOGY | [address] | | | + + + + + documented in this encounter Visit Diagnoses Not on filedocumented in this encounter"
--- OUTSIDE RECORDS SUMMARY | ~2019-02-20 | XMS | Encounter Summary ---
Demographics + + + | Address | [address] | | | [place] [address] | + + + | Home Phone [...] Team Providers + +------+ + | Care Office Machine Service Supervisor Name | Role | Phone | [...] as of this encounter Progress Notes Interface, Evaporator Helper In - 02/07/2006 5:08 AM PSTCLINIC DATE: [...] were refilled. Dylan Arthur M.D. KRIS / [id number] / [id number] / [id number] / [id number] signed by Interface, Evaporator Helper In at 02/07/2006 5:08 AM PSTdocume nted in this encounter Plan of Treatment Not on filedocumented as of this encounter Visit Diagnoses Not on filedocumented in this encounter"
--- OUTSIDE RECORDS SUMMARY | ~2019-02-20 | XMS | Encounter Summary ---
Demographics + + + | Address | [address] | | | [place] [address] | + + + | Home Phone [...] + | Author | [facility] | | | and [place] | + + + | Organization | [facility] | | | and [...] [place] | | | | | [address] | | + + + + + Care Team Providers + +------+ + | Care Yard Switch Operator Name | Role | Phone [...] + + | 12/15/ | [facility] | [facility] | Sharan Bruno | [place]OL[place] (obstructive | | 2012 | Visit | SLEEP DISORDER [address] | MD [address] | sleep apnea) | | | | [address] [place] | [address] [place] | (Primary Dx); | | | | [place] [address] | [place] [address] | Parasomnia; Heart | | | | [phone] | [phone] | failure (HCC); | | | | [...] Insomnia Severity Index Insomnia Severity Index 17 Stockwell Sleepiness Scale Sitting and reading 2 Watching [...] might be different from the origi nal. [facility] [place] [address] Ref: Maycol Knutson CC: Chief Complaint Patient [...] be performed. 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 Review of Systems: [...] kg (202 lb 11.2 oz) | B VT 32.72 kg/m2 Gen: obese, alert and not [...] if present, can reduce the risk of VT. HBP: Treating NOLA, if present can help. [...] | | | | | | [place] [address] | | | | | | [phone] | | | | | | | | +--------+---------+ + + + | 05/19/ | Office | Cardiology | Cristian Mccoy, | | | 2019 | Visit | | MD [address] | | | | | | [place] | | | | | | [address] | | | | | | | [...]
--- OUTSIDE RECORDS SUMMARY | ~2019-02-20 | XMS | Encounter Summary ---
Demographics + + + | Address | [address] | | | [place] [address] | + + + | Home Phone [...] Team Providers + +------+ + | Care Painter And Decorator Apprentice Name | Role | Phone | [...] as of this encounter Progress Notes Interface, Air Antisubmarine Officer In - 02/10/2006 3:18 AM PSTCLINIC DATE: [...] month's time. Dylan Arthur M.D. KRIS / [id number] / [id number] / [id number] / [id number] Tdocumented in this encounter Plan of Treatment Not on filedocumented as of this encounter Visit Diagnoses Not on filedocumented in this encounter"
--- OUTSIDE RECORDS SUMMARY | ~2019-02-20 | XMS | Encounter Summary ---
Demographics + + + | Address | [address] | | | [place] [address] | + + + | Home Phone [...] [place] | | | | | [address] | | + + + + + Care Team Providers + +------+ + | Care Inspector Metal Can Name | Role | Phone | + [...] + + | 01/18/ | Office | [facility] [place] | Sharan Bruno | [place] (obstructive | | 2015 | Visit | SLEEP DISORDER [address] | MD [address] | sleep apnea) | | | | [address] [place] | [address] [place] | (Primary Dx); | | | | [place] [address] | [place] [address] | Rheumatoid arthritis | | | | [phone] | [phone] | involving both | | | | [...] (combination once again of [place] and CSA- TIRE DUSTER). Since then he has undergone nasal surgery. The current study is thus done. Technical Information: Please see technical data stored as Polysomnography under "Media" se ction in the [facility] EMR. Definitions (The AASM Manual for the [...] obstructive apneas, 0 mixed apneas, 1 central rn medical inpatient services eas, 80 hypopneas, and 0 Respiratory Effort [...] ask Dr. Knutson for a referral to [facility] Rheumatology for a second opinion. P: [...] | | | | | | [place] [address] | | | | | | [phone] | | | | | | | | +--------+---------+ + + + | 05/19/ | Office | Cardiology | Cristian Mccoy, | | | 2019 | Visit | | MD [address] | | | | | | [place] | | | | | | [address] | | | | | | | [...]
--- OUTSIDE RECORDS SUMMARY | ~2019-02-20 | XMS | Encounter Summary ---
Demographics + + + | Address | [address] | | | [place] [address] | + + + | Home Phone | | + + + | Preferred Language | Unknown | + + + | Marital Status | | + + + | Sikh Affiliation | LUT | + + + | Race | White | + + + | Ethnic Group | Not or | + + + Author + + + | Author | [facility] | + + + | Organization | [facility] | + + + | Address | Unknown | + + + | Phone | Unavailable | + + + Support + + +---------+ + | Name | Relationship | Address | Phone | + + +---------+ + | Blossom Rose | ECON | Unknown | | + + +---------+ + Care Team Providers + +------+ + | Care Police Patrol Lieutenant Name | Role | Phone | + [...] | | | | | [facility] [address] [facility] | | | | | | [address] | | | | | | Mailcode: PV01 | | | | | | Physician[facility] | | | | | | [place], [place] | | | | | | [address] | | | | | | [phone] | | | +--------+ + + + [...] | | | | | r 1997 ([id number]). | | | | | | Gross [...] + + + | [facility] | [address] | [place] [address] | | | PATHOLOGY | [address] | | | + + + + + | [facility] DEPARTMENT | [address] | [place] [address] | | | PATHOLOGY | [address] [...] (L)Comment: | 0.98 - 1.08 INR | [facility] | | | | PT INR Therapeutic [...] + + + | [facility] | [address] [facility] | [place] [address] | | | PATHOLOGY | [address] | | | + + + + + | [facility] DEPARTMENT | [address] [facility] | [place] [address] | | | PATHOLOGY | [address] [...] | + + + + + | [facility] DEPARTMENT OF | [address] | [place] [address] | | | PATHOLOGY | [address] | | | + + + + + | [facility] DEPARTMENT OF | [address] | [place] [address] | | | PATHOLOGY | [address] [...] | + + + + + | [facility] DEPARTMENT OF | [address] | [place] [address] | | | PATHOLOGY | [address] | | | + + + + + | [facility] DEPARTMENT OF | [address] | [place] [address] | | | PATHOLOGY | [address] | | | + + + + + documented in this encounter Visit Diagnoses Not on filedocumented in this encounter
--- OUTSIDE RECORDS SUMMARY | ~2019-02-20 | XMS | Encounter Summary ---
Demographics + + + | Address | [address] | | | [place] [address] | + + + | Home Phone [...] Providers + +------+ + | Care Family Nurse Name | Role | Phone | [...] as of this encounter Progress Notes Interface, Lehr Operator In - 01/22/2006 1:04 AM PSTCLINIC DATE: [...] 2 months. Dylan Arthur M.D. KRIS / [id number] / [id number] / [id number] / [id number] signed by Interface, Lehr Operator In at 01/22/2006 1:04 AM PSTdocume nted in this encounter Plan of Treatment Not on filedocumented as of this encounter Visit Diagnoses Not on filedocumented in this encounter"
--- OUTSIDE RECORDS SUMMARY | ~2019-02-20 | XMS | Encounter Summary ---
Demographics + + + | Address | [address] | | | [place] [address] | + + + | Home Phone [...] [place] | | | | | [address] | | + + + + + Care Team Providers + +------+ + | Care Aircraft Pilot Name | Role | Phone | + +------+ + | Maycol Knutson MD | PCP | | + +------+ + Encounter Details +--------+ + + + + | Date | Type | Department | Care Team | Description | +--------+ + + + + | 08/08/ | Hospital | [facility] | Conversion | Pain | | 2018 | Encounter | CONVERSION [address] | Transaction, | | | | | [address] | Provider Unknown | | | | | [place], [place] | [phone] | | | | | [address] | | | | | | [phone] | | | +--------+ + + + [...] [place], | | | | | | [place] [address] | | | | | | [phone] | | | | | | | | +--------+---------+ + + + | 05/19/ | Office | Cardiology | Nadine Paulvirgilio, | | | 2019 | Visit | | [address] | | | | | | [place] | | | | | | [address] | | | | | | | [...]
--- OUTSIDE RECORDS SUMMARY | ~2019-02-20 | XMS | Encounter Summary ---
Demographics + + + | Address | [address] | | | [place] [address] | + + + | Home Phone [...] + + | Author | [facility] | + + + | Organization | [facility] | + + + | Address | Unknown | + + + | Phone | Unavailable | + + + Support + + +---------+ + | Name | Relationship | Address | Phone | + + +---------+ + | Blossom Rose | ECON | Unknown | | + + +---------+ + Care Team Providers + +------+ + | Care Table Games Floor Supervisor Name | Role | Phone | [...] as of this encounter Progress Notes Interface, Solution Spec In - 02/23/2006 5:11 AM PSTCLINIC DATE: [...] swelling. Dylan Arthur M.D. KRIS / [place] [id number] / [id number] / [id number] / Tdocumented in this encounter Plan of Treatment Not on filedocumented as of this encounter Visit Diagnoses Not on filedocumented in this encounter"
--- OUTSIDE RECORDS SUMMARY | ~2019-02-20 | XMS | Encounter Summary ---
Demographics + + + | Address | [address] | | | [place] [address] | + + + | Home Phone [...] Team Providers + +------+ + | Care Computer Applications Developer Name | Role | Phone | [...] as of this encounter Progress Notes Interface, Unix Consultant In - 03/22/2006 5:11 AM PSTCLINIC DATE: [...] decide to go ahead. Dylan Arthur M.D. Welt Rougher, Otolaryngology Head and Neck Surgery [place]/rajani d ocumented in this encounter Plan of Treatment Not on filedocumented as of this encounter Visit Diagnoses Not on filedocumented in this encounter"
--- OUTSIDE RECORDS SUMMARY | ~2019-02-20 | XMS | Encounter Summary ---
Demographics + + + | Address | [address] | | | [place] [address] | + + + | Home Phone [...] [place] | | | | | [address] | | + + + + + Care Team Providers + +------+ + | Care Decorating Kiln Operator Name | Role | Phone | + +------+ + | Maycol Knutson MD | PCP | | + +------+ + Encounter Details +--------+ + + + + | Date | Type | Department | Care Team | Description | +--------+ + + + + | 04/03/ | Hospital | [facility] GENER[facility] IP | Conversion | Pain | | 2018 | Encounter | CONVERSION [address] | Transaction, | | | | | [address] | Provider Unknown | | | | | [place], [place] | [phone] | | | | | [address] | | | | | | [phone] | | | +--------+ + + + [...] | 03/05/ | Office | Pulmonology | [facility], | | | 2018 | Visit | | Mary Pinto, | | | | | | MD [address] | | | | | | [place], | | | | | | [place] [address] | | | | | | [phone] | | | | | | | | +--------+---------+ + + + | 05/19/ | Office | Cardiology | [place], [place], | | | 2020 | Visit | | [address] | | | | | | [place] | | | | | | [address] | | | | | | | [...]
--- OUTSIDE RECORDS SUMMARY | ~2019-02-20 | XMS | Encounter Summary ---
Demographics + + + | Address | [address] | | | [place] [address] | + + + | Home Phone [...] Team Providers + +------+ + | Care Linen Manager Name | Role | Phone | + +------+ + | Maycol Knutson MD | PCP | | + +------+ + Encounter Details +--------+ + + + + | Date | Type | Department | Care Team | Description | +--------+ + + + + | 11/30/ | Hospital | Diagnostic Imaging | | | | 2009 | Encounter | Services at [facility] | | | | | | [address] | | | | | | [place]ly [place] Mailcode: | | | | | | [address] [facility] | | | | | | [place], [place] | | | | | | [address] | | | | | | [phone] | | | +--------+ + + + [...] | | | | | | [facility] speechpathologist. | | | | | [...]
--- OUTSIDE RECORDS SUMMARY | ~2019-02-20 | XMS | Encounter Summary ---
Demographics + + + | Address | [address] | | | [place] [address] | + + + | Home Phone [...] Team Providers + +------+ + | Care Child Nutrition Assistant Name | Role | Phone | [...] as of this encounter Discharge Summaries Interface, Intake Manager In - 03/03/2006 3:[address] [address] [facility] MEDICAL SUMMARY OF HOSPITALIZATION Med [...] [place] [address] Arthur here at [facility]. The patient presents with gastroesophageal reflux disease [...] a brief time there was transferred to [address] [place] [address], his peng of discharge. He tolerated the [...] M.D. Rohan Barragan M.D. Dylan Arthur M.D. [facility]/ree P cc: MAYCOL CALLAHAN MD [address] [place] [id number] signed by Interface, Intake Manager In at 03/03/2006 3:11 AM PSTdocumented in this encounter Plan of Treatment Not on filedocumented as of this encounter Visit Diagnoses Not on filedocumented in this encounter"
--- OUTSIDE RECORDS SUMMARY | ~2019-02-20 | XMS | Encounter Summary ---
Demographics + + + | Address | [address] | | | [place] [address] | + + + | Home Phone [...] Providers + +------+ + | Care Medical Office Secretary Name | Role | Phone | + [...]
--- OUTSIDE RECORDS SUMMARY | ~2019-02-20 | XMS | Encounter Summary ---
Demographics + + + | Address | [address] | | | [place] [address] | + + + | Home Phone [...] Team Providers + +------+ + | Care Lacquer Pin Press Operator Name | Role | Phone | [...] | Malignant | MD Rickey | Alexei Izquierod MD | | | Required | | neoplasm of | [address] | [address] | | | | | glottis | [facility] | [facility] | | | | | (HCC) | Rd | Rd [place], | | | | | Procedures | [place], [place] | [place] | | | | | NEW PATIENT | [address] | [address] | | | | | [address] | | Phone: | | | | | LARYNGOSCOPY | | [phone] | | | | | ,FLEX | | Fax: | | | | | FIBER,DIAGNO | | [phone] | | | | | STIC | [...] | at [facility] [address] | [facility] [address] | Allergic Rhinitis, | | | | [facility] [address] | [place], [place] | Cause Unspecified; | | | | Mailcode: PV01 | [address] | Laryngeal Cancer | | | | [facility] | [phone] | ([facility]); Glottic | | | | [place], [place] | | Stenosis | | | | [address] | | | | | | [phone] | | | +--------+---------+ + + + [...] the original. PATIENT NAME: German Rose MR#: [id number] : 1945 REFERRING PROVIDER: RICKEY ARTHUR MD [address] [place] [address] PRIMARY CARE PROVIDER: MAYCOL CALLAHAN MD CLINIC: [facility] PROBLEM [...] but is transferring his care to the [facility] because Dr. Arthur will be moving to the [facility] . 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 Alexei De M.D. Clinical Reimbursement Specialist Laryngology and Head & Neck Surgery documented in this en counter Plan of Treatment + + +--------+ + + | Name | Type | Priori | Associated Diagnoses | Order Schedule | | | | ty | | | + + +--------+ + + | NE LARYNGOSCOPY,FLEX | Procedures | Routin | Laryngeal Cancer | Ordered: 12/19/2006 | | FIBER,DIAGNOSTIC | | e | ([facility]) Glottic | | | | | | [...]
--- OUTSIDE RECORDS SUMMARY | ~2019-02-20 | XMS | Encounter Summary ---
Demographics + + + | Address | [address] | | | [place] [address] | + + + | Home Phone | | + + + | Preferred Language | Unknown | + + + | Marital Status | | + + + | Latter-Day Affiliation | 1028 | + + + [...] [place] | | | | | [address] | | + + + + + Care Team Providers + +------+ + | Care Mail Room Name | Role | Phone | + [...] | n (HCC) | [address] | [place], [place] | | | | | Procedures | [address] | [address] | | | | | CT Chest wo | [place], [place] | Phone: | | | | | Contrast | [address] | [phone] | | | | | | Phone: | Fax: | | | | | | [phone] | [phone] | | | | | | Fax: | | | | | | | [phone] | | +--------+--------+ + + + + [...] | n (HCC) | [address] | [place], [place] | | | | | Procedures | [address] | [address] | | | | | CT Chest wo | [place], [place] | Phone: | | | | | Contrast | [address] | [phone] | | | | | | Phone: | Fax: | | | | | | [phone] | [phone] | | | | | | Fax: | | | | | | | [phone] | | +--------+--------+ + + + + Encounter Details +--------+ + + + + | Date | Type | Department | Care Team | Description | +--------+ + + + + | 11/20/ | Hospital | [facility] | [place], | 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
--- OUTSIDE RECORDS SUMMARY | ~2019-02-20 | XMS | Encounter Summary ---
Demographics + + + | Address | [address] | | | [place] [address] | + + + | Home Phone | | + + + | Preferred Language | Unknown | + + + | Marital Status | | + + + | Zoroastrian Affiliation | 1028 | + + + | Race | Unknown | + + + | Ethnic Group | Unknown | + + + Author + + + | Author | [facility] | | | and [place] | + + + | Organization | [facility] | | [...] [place] | | | | | [address] | | + + + + + Care Team Providers + +------+ + | Care Zigzagger Name | Role | Phone | + [...] Veronica Pat | | | | | [phone] | [place] [address] | | +--------+ + + + + [...] | | | | | | [place] [address] | | | | | | [phone] | | | | | | | | +--------+---------+ + + + | 05/19/ | Office | Cardiology | Critsian Mccoy, | | | 2019 | Visit | | MD [address] | | | | | | [place] | | | | | | [address] | | | | | | | [...]
--- OUTSIDE RECORDS SUMMARY | ~2019-02-20 | XMS | Encounter Summary ---
Demographics + + + | Address | [address] | | | [place] [address] | + + + | Home Phone [...] Providers + +------+ + | Care Clinical Laboratory Service Teacher Name | Role | Phone | [...] as of this encounter Progress Notes Interface, Automatic Buffer In - 02/05/2006 1:06 AM PSTCLINIC DATE: [...] of Augmentin. Dylan Arthur M.D. KRIS / [id number] / [id number] / [id number] / [id number] C: 07/27/1999 [id number] signed by Interface, Automatic Buffer In at 02/05/2006 1:06 AM PSTdocume nted in this encounter Plan of Treatment Not on filedocumented as of this encounter Visit Diagnoses Not on filedocumented in this encounter"
--- OUTSIDE RECORDS SUMMARY | ~2019-02-20 | XMS | Encounter Summary ---
Demographics + + + | Address | [address] | | | [place] [address] | + + + | Home Phone | | + + + | Preferred Language | Unknown | + + + | Marital Status | | + + + | Sikh Affiliation | 1028 | + + + | Race | Unknown | + + + | Ethnic Group | Unknown | + + + Author + + + | Author | [facility] | | | and [place] | + + + | Organization | [facility] | [...] [place] | | | | | [address] | | + + + + + Care Team Providers + +------+ + | Care District Administrative Assistant Name | Role | Phone | + +------+ + | Maycol Knutson MD | PCP | | + +------+ + Encounter Details +--------+ + + + + | Date | Type | Department | Care Team | Description | +--------+ + + + + | 01/21/ | Hospital | [facility] | Sharan Bruno | | | 2012 | Encounter | MED CTR SLEEP | MD Claritza [address] | | | | | [place] [address] | [address] [facility] | | | | | [place], [place] | [facility] [place] [address] | | | | | [address] | [phone] | | | | | [phone] | | | +--------+ + + + [...] | | | | | | [place] [address] | | | | | | [phone] | | | | | | | | +--------+---------+ + + + | 05/19/ | Office | Cardiology | Cristian Mccoy, | | | 2019 | Visit | | MD [address] | | | | | | [place] | | | | | | [address] | | | | | | | | +--------+---------+ + + + documented as of this encounter Visit Diagnoses Not on filedocumented in this encounter"
--- OUTSIDE RECORDS SUMMARY | ~2019-02-20 | XMS | Encounter Summary ---
Demographics + + + | Address | [address] | | | [place] [address] | + + + | Home Phone | | + + + | Preferred Language | Unknown | + + + | Marital Status | | + + + | Methodist Affiliation | 1028 | + + + | Race | Unknown | + + + | Ethnic Group | Unknown | + + + Author + + + | Author | [facility] | | | and [place] | + + + | Organization | [facility] | | [...] [place] | | | | | [address] | | + + + + + Care Team Providers + +------+ + | Care Strip Cutting Machine Operator Name | Role | Phone [...] + + | 12/02/ | Telephone | [facility] | Bridget Milian DNP | Follow-up | | 2019 | | VASCULAR SURGERY | [address] | | | | | [address] [place] | [place], [place] | | | | | [place], [place] | [address] | | | | | [address] | | | | | | [phone] | | | +--------+ + + + [...] DR | | | | | | [place], | | | | | | [place] [address] | | | | | | [phone] | | | | | | | | +--------+---------+ + + + | 05/19/ | Office | Cardiology | Cristian Mccoy, | | | 2020 | Visit | | MD [address]ayna SHEPPARD | | | | | | [place] | | | | | | [address] | | | | | | | | +--------+---------+ + + + documented as of this encounter Visit Diagnoses Not on filedocumented in this encounter"
--- OUTSIDE RECORDS SUMMARY | ~2019-02-20 | XMS | Encounter Summary ---
Demographics + + + | Address | [address] | | | [place] [address] | + + + | Home Phone [...] [place] | | | | | [address] | | + + + + + Care Team Providers + +------+ + | Care Motion Picture Projectionist Apprentice Name | Role | Phone | [...] | n (HCC) | [address] | [place], [place] | | | | | Procedures | [address] | [address] | | | | | CT Chest wo | [place], [place] | Phone: | | | | | Contrast | [address] | [phone] | | | | | | Phone: | Fax: | | | | | | [phone] | [phone] | | | | | | Fax: | | | | | | | [phone] | | +--------+--------+ + + + + Reason for Visit +--------+ + | Reason | Comments | +--------+ + | COPD | | +--------+ + Encounter Details +--------+---------+ + + + | Date | Type | Department | Care Team | Description | +--------+---------+ + + + | 11/03/ | Office | [facility] | [place], | COPD, moderate (HCC) | | 2019 | Visit | PULMONOLOGY [address] | Mary Pinto, | (Primary Dx); | | | | [address] [place] | [address] | Multifocal lung | | | | [place], [place] | [place] [address] [place], | consolidation (HCC); | | | | [address] | [place] [address] | Aspiration | | | | [phone] | [phone] | pneumonia, | | | | | [...] 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). He has been found to dona martinez dysphagia and aspiration, and was admitted to [facility] in October for worsening cough associate d [...] He does exercises he l earned in [place] (has finished participating in this) at home [...] was younger. He was in the , [employer], for 4 years and reportedly exposed to A gent [place]. He has no animals at home. 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 - Pulmonary function test; Future 2. Multifocal [...] in remission. He sees a team in [facility]. Thank you for allowing us to participate [...] Rodrigez MD Pulmonary and Critical Care Medicine [facility] [address] , [place] [address] documente d in this encounter Plan of [...] | | | | | | [place] [address] | | | | | | [phone] | | | | | | | | +--------+---------+ + + + | 05/19/ | Office | Cardiology | Cristian Mccoy, | | | 2019 | Visit | | [address] | | | | | | [place] | | | | | | [address] | | | | | | | | +--------+---------+ + + + documented as of this encounter Results Pulmonary function test full PFT (11/20/2018 2:04 PM PDT) + + + | Narrative | Performed At | + + + | Mary Rodrigez MD 11/20/2018 14:07 PULMONARY | | | FUNCTION TEST NAME: German Rose : 1945 MRN: | | | [id number] REASON FOR TESTING: COPD FINDINGS | | [...] Rodrigez MD Pulmonary and Critical Care Medicine [facility] | | | [facility] [address] , [address] | | | [place] [address] | | + + + CT Chest [...]
--- OUTSIDE RECORDS SUMMARY | ~2019-02-20 | XMS | Encounter Summary ---
Demographics + + + | Address | [address] | | | [place] [address] | + + + | Home Phone | | + + + | Preferred Language | Unknown | + + + | Marital Status | | + + + | Spiritism Affiliation | 1028 | + + + | Race | Unknown | + + + | Ethnic Group | Unknown | + + + Author + + + | Author | [facility] | | | and [place] | + + + | Organization | [facility] | | | [...] [place] | | | | | [address] | | + + + + + Care Team Providers + +------+ + | Care Digital Publishing Specialist Name | Role | Phone | + +------+ + | Maycol Knutson MD | PCP | | + +------+ + Encounter Details +--------+ + + + + | Date | Type | Department | Care Team | Description | +--------+ + + + + | 12/22/ | Hospital | [facility] | Sharan Bruno | | | 2012 | Encounter | MED CTR SLEEP | MD [address] | | | | | [place] [address] | [address] [facility] | | | | | [place], [place] | [place] [address] | | | | | [address] | [phone] | | | | | [phone] | | | +--------+ + + + [...] | | | | | | [place] [address] | | | | | | [phone] | | | | | | | | +--------+---------+ + + + | 05/19/ | Office | Cardiology | Cristian Mccoy, | | | 2019 | Visit | | MD [address] | | | | | | [place] | | | | | | [id number] | | | | | | | [...]
[~2019-02-20 12:19] MED LIST changes: +KEFLEX500 MG PO
--- OUTSIDE RECORDS SUMMARY | 2019-02-20 12:22 | XMS ---
PreManage Notification: PAVITHRA ROBERTSON Security Legal Administrative Assistant Events No recent Security Events currently on file CRITERIA MET - Group Notification - [facility] - Has Care Guidelines [facility] Internal Medicine 09/17/2017-Current PHONE: Unknown Maycol Knutson MD Primary Care Current PHONE: [phone] ordavid Case or Retirement Sales Consultant Current PHONE: Unknown Will has no Care Guidelines for this patient. Care History Medical/Surgical 09/17/2017 [facility] - Patient is currently established with [facility]. If patient is seen in the ED during business hours. Please contact CHWs at [facility] at Ext [phone]. Care Recommendation: This patient has had 5 or more Emergency Department visits in the last 12 months.\T\nbsp; Patient requires education on the scope and purpose of the ED as an acute care provider not a Primary Care Provider and should not be utilized for chronic conditions.\T\nbsp; If patient returns to ED please contact Community Health Worker Deidre at [phone]. These are guidelines and the provider should exercise clinical judgment when providing care. E.D. VISIT COUNT (12 MO.) 2 ROCHELLE Ulloa TOTAL 2 NOTE: Visits indicate total known visits. ED/UCC VISIT TRACKING (12 MO.) 02/20/2019 12:20 [facility] [place] TYPE: Emergency COMPLAINT: - COUGHING UP BLOOD 03/20/2018 20:08 [facility] [place] TYPE: Emergency COMPLAINT: - NOSEBLEED DIAGNOSES: - Peripheral vascular disease, unspecified - Personal history of other malignant neoplasm of skin - Chronic obstructive pulmonary disease, unspecified - Epistaxis - Gastro-esophageal reflux disease without esophagitis - Anemia in chronic kidney disease - Hypothyroidism, unspecified - Chronic kidney disease, unspecified - [facility] (current) use of anticoagulants - Unspecified atrial fibrillation - Allergy status to oth drug/meds/biol subst status - Allergy status to narcotic agent status - Other intermodal dispatcher (current) drug therapy - Rheumatoid arthritis, unspecified - Old myocardial infarction - Mixed hyperlipidemia - Personal history of pneumonia (recurrent) - Presence of aortocoronary bypass graft - Major depressive disorder, single episode, unspecified - Age-related osteoporosis w/o current pathological fracture - Obstructive sleep apnea (adult) (pediatric) - 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
[2019-02-20] MEDS ORDERED: PREDNISONE20 MG PO (12:53)
[2019-02-20] MEDS ORDERED: LEVAQUIN750 MG PO (14:56)
== END 2019-02-20 17:07 | disposition home or self-care (01) ==
LOC: ED 12:19
DX: J44.0 Chronic obstructive pulmonary disease with (acute) lower respiratory infection (principal); J18.9 Pneumonia, unspecified organism; I25.10 Atherosclerotic heart disease of native coronary artery without angina pectoris; I48.91 Unspecified atrial fibrillation; I25.2 Old myocardial infarction; N18.9 Chronic kidney disease, unspecified; D63.1 Anemia in chronic kidney disease; E03.9 Hypothyroidism, unspecified; E78.2 Mixed hyperlipidemia; K21.9 Gastro-esophageal reflux disease without esophagitis; F32.9 Major depressive disorder, single episode, unspecified; G47.33 Obstructive sleep apnea (adult) (pediatric); Z79.01 Long term (current) use of anticoagulants; Z87.891 Personal history of nicotine dependence; Z88.8 Allergy status to other drugs, medicaments and biological substances; Z79.899 Other long term (current) drug therapy; Z79.51 Long term (current) use of inhaled steroids
CPT/HCPCS: 71045; 80053; 83605; 85025; 85610; 85730; 94640; 96361; 96365; 96366; 99283-25; J1956; J7040

== ENCOUNTER 2020-08-04 13:49 | Emergency (ER) | payer MEDICARE ==
[~2020-08-04] VITALS: Ht 172.7 cm; Wt 77.1 kg
[~2020-08-04 13:49] MED LIST changes: +LEVAQUIN750 MG PO; +PREDNISONE20 MG PO
--- OUTSIDE RECORDS SUMMARY | 2020-08-04 13:54 | XMS ---
PreManage Notification: PAVITHRA ROBERTSON Security Tub Mender Events No recent Security Events currently on file CRITERIA MET - Group Notification - [facility] - Has Care Guidelines CARE PROVIDERS [place] [facility] Internal Medicine 09/17/2017-Current PHONE: Unknown Will has no Care Guidelines for this patient. Care History Medical/Surgical 02/23/2019 [facility] Patient has follow up appt. on 04/09/[address] Puga 09/17/2017 [facility] - Patient is currently established with [facility]. If patient is seen in the ED during business hours. Please contact CHWs at [facility] at [phone]. Care Recommendation: This patient has had 5 or more Emergency Department visits in the last 12 months.\T\nbsp; Patient requires education on the scope and purpose of the ED as an acute care provider not a Primary Care Provider and should not be utilized for chronic conditions.\T\nbsp; If patient returns to ED please contact Community Health WorkerDeidre at [phone]. These are guidelines and the provider should exercise clinical judgment when providing care. E.D. VISIT COUNT (12 MO.) 1 [facility] TOTAL 1 NOTE: Visits indicate total known visits. ED/UCC VISIT TRACKING (12 MO.) 08/04/2020 13:50 [facility] TYPE: Emergency COMPLAINT: - LEGS SWELLING INPATIENT VISIT TRACKING (12 MO.) No inpatient visits to display in this time frame [email or web address]
[2020-08-04] MEDS ORDERED: FUROSEMIDE40 MG PO (16:32)
--- NOTE | 2020-08-04 22:23 | EKG ---
[facility] [address] [place] [address] Signed Atrial fibrillation Left axis deviation Right bundle branch block Minimal voltage criteria for LVH, may be normal variant Inferior infarct , age undetermined Abnormal ECG When compared with ECG of 23-OCT-2017 15:21, Left anterior fascicular block is no longer present Inferior infarct is now present Confirmed by REYES MCRAE MD ([id number]) on 08/04/2020 10:22:52 PM Electronically Signed By: REYES MCRAE MD 08/04/202222 PATIENT NAME: PAVITHRA ROBERTSON Electrocardiogram DATE OF : 43 PHYSICIAN: REYES MCRAE MD REPORT #: [id number] REPORT IS CONFIDENTIAL AND NOT TO BE RELEASED WITHOUT AUTHORIZATION
== END 2020-08-04 16:48 | disposition home or self-care (01) ==
LOC: ED 13:49
DX: I50.9 Heart failure, unspecified (principal); J44.9 Chronic obstructive pulmonary disease, unspecified; K21.9 Gastro-esophageal reflux disease without esophagitis; E03.9 Hypothyroidism, unspecified; G47.33 Obstructive sleep apnea (adult) (pediatric); N18.9 Chronic kidney disease, unspecified; M06.9 Rheumatoid arthritis, unspecified; Z87.891 Personal history of nicotine dependence; Z88.8 Allergy status to other drugs, medicaments and biological substances; Z79.899 Other long term (current) drug therapy; Z79.52 Long term (current) use of systemic steroids
CPT/HCPCS: 71045; 80053; 80162; 81001; 83880; 84484; 85025; 93005; 93010; 93971; 99285-25; J1940

== ENCOUNTER 2021-10-21 12:41 | Emergency (ER) | payer MEDICARE ==
[~2021-10-21] VITALS: Ht 170.2 cm; Wt 68.0 kg
--- NOTE | ~2021-10-21 | EKG ---
[facility] [address] [facility] [place], [place] [address] Draft EK completed, results pending confirmation PATIENT NAME: PAVITHRA ROBERTSON LUIS MIGUEL Electrocardiogram DATE OF : 43 PHYSICIAN: PRELIMINARY REPORT #: [id number] REPORT IS CONFIDENTIAL AND NOT TO BE RELEASED WITHOUT AUTHORIZATION
[~2021-10-21 12:41] MED LIST changes: +ACYCLOVIR15 GM TOP; +ATORVASTATIN CA40 MG PO; +AZATHIOPRINE50 MG PO; +DOXYCYCLINE HY100 MG PO; +ELIQUIS2.5 MG PO; +ELIQUIS5 MG PO; +LEVOFLOXACIN750 MG PO; +PANTOPRAZOLE SO20 MG PO; +XIIDRA1 EACH OU
--- OUTSIDE RECORDS SUMMARY | 2021-10-21 12:44 | XMS ---
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 Care History Medical/Surgical 02/14/2021 [facility] Dr. Puga is waiting for ED report before scheduling patient for follow up. 02/13/2021 [facility] - Patient is currently established with [facility]. If patient is seen in the ED during business hours. Please contact CHWs at [facility] at Ext [phone]. Care Recommendation: This patient has had 5 or more Emergency Department visits in the last 12 months. Patient requires education on the scope and purpose of the ED as an acute care provider not a Primary Care Provider and should not be utilized for chronic conditions. If patient returns to ED please contact Community Health WorkerDeidre at [phone]. These are guidelines and the provider should exercise clinical judgment when providing care. 02/23/2019 [facility] Patient has follow up appt. on 04/09/[address] Sisi Zamora VISIT COUNT (12 MO.) 3 [facility] TOTAL 3 NOTE: Visits indicate total known visits. ED/UCC VISIT TRACKING (12 MO.) 10/21/2021 12:42 [facility] TYPE: Emergency COMPLAINT: - FALL, LACERATION 05/10/2021 12:36 [facility] TYPE: Emergency COMPLAINT: - CHEST PAIN, COUGHING DARK/BLOODY MUCUS, FEVER 02/12/2021 08:45 [facility] TYPE: Emergency COMPLAINT: - SOB,DIZZY,CHEST PAIN DIAGNOSES: - Obstructive sleep apnea (adult) (pediatric) - Heart failure, unspecified - Unspecified atrial fibrillation - Hypothyroidism, unspecified - Shortness of breath - Personal history of nicotine dependence - Contact with and (suspected) exposure to COVID-19 - Chronic obstructive pulmonary disease with (acute) exacerbation - Chronic kidney disease, unspecified - Gastro-esophageal reflux disease without esophagitis - Rheumatoid arthritis, unspecified - Allergy status to other drugs, medicaments and biological substances - Anemia in chronic kidney disease - Old myocardial infarction - Other senior living (current) drug therapy INPATIENT VISIT TRACKING (12 MO.) 05/10/2021 12:37 [facility] TYPE: Observation COMPLAINT: - PNA DIAGNOSES: - Heart failure, unspecified - Presence of aortocoronary bypass graft - Allergy status to other drugs, medicaments and biological substances - Contact with and (suspected) exposure to COVID-19 - Chronic obstructive pulmonary disease, unspecified - Ventricular tachycardia - Myocardial infarction type 2 - Old myocardial infarction - Rheumatoid arthritis, unspecified - Personal history of irradiation - Chronic atrial fibrillation, unspecified - Personal history of malignant neoplasm of larynx - skilled nursing (current) use of anticoagulants - 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
[2021-10-21] MEDS ORDERED: HYDROCODON-ACE1 EA10 PO (17:24)
== END 2021-10-21 17:50 | disposition short-term general hospital (02) ==
LOC: ED 12:41
DX: S22.41XA Multiple fractures of ribs, right side, initial encounter for closed fracture (principal); R00.1 Bradycardia, unspecified; R55 Syncope and collapse; Z20.822 Contact with and (suspected) exposure to COVID-19; X58.XXXA Exposure to other specified factors, initial encounter; Z87.891 Personal history of nicotine dependence; Z88.8 Allergy status to other drugs, medicaments and biological substances; Z79.899 Other long term (current) drug therapy
CPT/HCPCS: 36415; 70450; 71101; 80053; 80162; 85025; 87502; 93005; 93010; 96374; 96375; 99285-25; C9803; J0461; J1170; U0003

== ENCOUNTER 2022-03-10 11:28 | Emergency (ER) | payer MEDICARE ==
[~2022-03-10] VITALS: Ht 170.2 cm; Wt 68.0 kg
[~2022-03-10 11:28] MED LIST changes: +HYDROCODON-ACE1 EA10 PO
--- OUTSIDE RECORDS SUMMARY | 2022-03-10 11:30 | XMS ---
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 Care History Medical/Surgical 02/14/2021 [facility] [address]. Puga is waiting for ED report before scheduling patient for follow up. 02/13/2021 [facility] - Patient is currently established with [facility]. If patient is seen in the ED during business hours. Please contact CHWs at [facility] at Ext [phone]. Care Recommendation: This patient has had 5 or more Emergency Department visits in the last 12 months. Patient requires education on the scope and purpose of the ED as an acute care provider not a Primary Care Provider and should not be utilized for chronic conditions. If patient returns to ED please contact Community Health WorkerDeidre at [phone]. These are guidelines and the provider should exercise clinical judgment when providing care. 02/23/2019 [facility] Patient has follow up appt. on 04/09/[address] Sisi Zamora VISIT COUNT (12 MO.) 1 [facility] 3 [facility] TOTAL 4 NOTE: Visits indicate total known visits. ED/UCC VISIT TRACKING (12 MO.) 03/10/2022 11:29 [facility] TYPE: Emergency COMPLAINT: - SOB 10/22/2021 13:28 [facility] TYPE: Emergency DIAGNOSES: - Bradycardia, unspecified - Atrioventricular block, complete - Permanent atrial fibrillation - Hypothyroidism, unspecified - Dizziness and giddiness - Atherosclerosis of coronary artery bypass graft(s), unspecified, with other forms of angina pectoris - Syncope and collapse - Ventricular tachycardia - Hypotension - Chronic obstructive pulmonary disease, unspecified - Ischemic cardiomyopathy - Rib Pain - Essential (primary) hypertension - Obstructive sleep apnea (adult) (pediatric) 10/21/2021 12:42 [facility] TYPE: Emergency COMPLAINT: - SYNCOPE DIAGNOSES: - Bradycardia, unspecified - Syncope and collapse - Allergy status to other drugs, medicaments and biological substances - Personal history of nicotine dependence - Multiple fractures of ribs, right side, initial encounter for closed fracture - Exposure to other specified factors, initial encounter - Contact with and (suspected) exposure to COVID-19 - Other care home (current) drug therapy 05/10/2021 12:36 [facility] TYPE: Emergency COMPLAINT: - CHEST PAIN, COUGHING DARK/BLOODY MUCUS, FEVER INPATIENT VISIT TRACKING (12 MO.) 05/10/2021 12:[address] 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 - Myocardial infarction type 2 - Atherosclerotic heart disease of [place] coronary artery without angina pectoris - Rheumatoid arthritis, unspecified - Other disorders of bilirubin metabolism - Presence of aortocoronary bypass graft - Chronic atrial fibrillation, unspecified - Contact with and (suspected) exposure to COVID-19 - shelter (current) use of anticoagulants - Ventricular tachycardia - Personal history of nicotine dependence - Old myocardial infarction - Pneumonia, unspecified organism - Heart failure, unspecified - Personal history of irradiation - Allergy status to other drugs, medicaments and biological substances [email or web address]
[2022-03-10] MEDS ORDERED: DECADRON6 MG PO (13:36)
== END 2022-03-10 14:10 | disposition home or self-care (01) ==
LOC: ED 11:28
DX: U07.1 COVID-19 (principal); J12.82 Pneumonia due to coronavirus disease 2019; J44.9 Chronic obstructive pulmonary disease, unspecified; I48.91 Unspecified atrial fibrillation; K21.9 Gastro-esophageal reflux disease without esophagitis; E78.2 Mixed hyperlipidemia; I25.2 Old myocardial infarction; E03.9 Hypothyroidism, unspecified; N18.9 Chronic kidney disease, unspecified; G47.33 Obstructive sleep apnea (adult) (pediatric); Z20.822 Contact with and (suspected) exposure to COVID-19; Z87.891 Personal history of nicotine dependence; Z88.8 Allergy status to other drugs, medicaments and biological substances; Z79.899 Other long term (current) drug therapy; Z79.01 Long term (current) use of anticoagulants
CPT/HCPCS: 36415; 71045; 80053; 83880; 85025; 96374; 99285-25; J1100